=== PATIENT | female | born 1955 | race Caucasian/White ===

== ENCOUNTER 2021-01-22 09:29 | Inpatient (IN) ==
[2021-01-22] MEDS ORDERED: ONDANSETRON INJ 2 MG/ML 2 ML VIAL IV PRN ×3 (09:51→16:47)
[2021-01-22] MEDS ORDERED: MoRPHine SULFATE 4 MG/ML 1 ML CARP\\VIAL IV STA (09:51)
[2021-01-22] MEDS ORDERED: SODIUM CHLORIDE 0.9% 1000ML 1,000 ML IV STA (09:51)
--- NOTE | 2021-01-22 10:02 | Emergency Department Note ---
Impression & Plan Pneumoperitoneum ED Provider Note CHIEF COMPLAINT: Abdominal pain HISTORY OF PRESENTING ILLNESS: This is a 65-year-old female who presents to the emergency department by private vehicle with complaint of severe lower abdominal pain. She states the pain started yesterday and was mild, but has gotten progressively worse and today she states that she is in severe pain across her entire lower abdomen. She states the pain is worse when she moves and better when she rests and she currently rates the pain 8/10, but it is 10/10 with movement. She denies any history of similar pain in the past and denies any previous abdominal surgeries. She has not had any fevers or chills. She has not had any nausea or vomiting and states that her appetite was normal yesterday. This morning she only had a cup of coffee and otherwise has not eaten today. She has been moving her bowels less than normal the past 2 days as well but denies any specific constipation. She denies any bloody or black s tools. She is still passing gas. She denies any urinary symptoms. She denies any chest pain, chest tightness, shortness of breath, dizziness or syncope. REVIEW OF SYSTEMS: A complete 10 point review of systems was reviewed with the patient with pertinent positives and negatives as per history of present illness. All else were negative. PAST MEDICAL HISTORY: Patient denies any history of previous medical or surgical problems SOCIAL HISTORY: Lives at home with family, she is a current everyday smoker ALLERGIES: No known allergies PHYSICAL EXAM: CONSTITUTIONAL: Pleasant and cooperative. Nontoxic-appearing and in no acute distress. Mildly dehydrated, but otherwise well appearing and well nourished. HEENT: Normocephalic, atraumatic. Pharynx normal. Tacky mucous membranes. NECK: Supple, full active range of motion without discomfort. RESPIRATORY: Diminished throughout with coarse rhonchi and scattered expiratory wheezes throughout. No tachypnea or labored breathing. No accessory muscle use. Equal expansion bilaterally. CARDIOVASCULAR: Regular rate and rhythm with no murmurs, rubs or gallops. GASTROINTESTINAL: Abdomen is diffusely tender throughout the lower abdomen, most tender in the right lower quadrant. Abdomen is slightly distended and firm. No guarding or rebound tenderness. No palpable masses or HSM. Bowel sounds present in all quadrants. No CVA tenderness bilaterally. MUSCULOSKELETAL: Full range of motion of all joints without discomfort. INTEGUMENTARY: No rash or other significant dermatologic conditions noted. NEUROLOGIC: Alert and oriented X 4 with normal affect. ED COURSE AND MEDICAL DECISION MAKING: CC: Patient presenting with complaint of abdominal pain DIFFERENTIAL DIAGNOSIS: Includes, but not limited to appendicitis, gastroenteritis, colitis, diverticulitis, pancreatitis, UTI, ovarian pathology, mass or mass-effect, small bowel obstruction, bowel perforation, ileus, among others. INTERPRETATION OF LABS: No leukocytosis, no anemia, normal platelets, mild hyponatremia, no other significant electrolyte abnormalities, normal renal function, normal liver enzymes and lipase. UA negative for UTI. COVID-19 test negative. IMAGING: XR chest 1V portable HISTORY: cough COMPARISON: Chest 11/01/2008. FINDINGS: No pneumothorax. No pleural effusions. The lungs are mildly hyperexpanded. The heart is top normal in size. No evidence for pulmonary edema. Hazy appearance to lung bases may be due to the overlapping soft tissue. The upp er lung zones are clear. IMPRESSION: Hazy appearance to lung bases may be due to the overlapping soft tissue. A low- grade pneumonia could also have a similar appearance. ----- ABDOMEN AND PELVIS CT WITH IV CONTRAST CT DOSE: 250.22 mGy.cm HISTORY: lower abdominal pain TECHNIQUE: Multiaxial CT images of the abdomen and pelvis were performed following the use of intravenous contrast. A dose lowering technique was utilized adhering to the principles of ALARA. COMPARISON STUDY: Pelvis CT 08/18/2010. FINDINGS: A few partially opacified right lower lobe bronchi. Patchy groundglass densities within the base of the right lower lobe. This favors atelectasis. A pneumonia could also have a similar appearance. Moderate pneumoperitoneum. No suspicious lytic or blastic osseous lesions. There is thickening of the gastric antrum/pylorus with a possible ulceration at this location best seen image 149. This appears to demonstrate a component of intraluminal and extraluminal gas best seen on image 144 through 149. Therefore, this raises the possibility of a perforated gastric/peptic ulcer. This likely accounts for the pneumoperitoneum. There is a 16 x 7 mm saccular aneurysm extending anteriorly from the infrarenal abdominal aorta on image 146. Trace ascites seen within the right paracolic g utter and pelvis. The bladder, uterus, bilateral adnexa are within normal limits. Focal severe stenosis within the proximal left common iliac artery. There is also severe stenosis within the proximal right renal artery. The left renal artery is patent. Extensive calcified plaque within the aorta and iliac arteries. The right internal iliac artery and proximal left internal iliac arteries appear occluded. Colonic diverticulosis. The cecum and appendix are seen within the left lower quadrant. No evidence for bowel obstruction. Questionable thickening of the distal colon is likely due to underdistention. The liver, spleen, adrenal glands, pancreas, gallbladder, and right kidney are unremarkable. No retroperitoneal lymphadenopathy. There is a 1.9 x 1.1 cm exophytic heterogeneous focus of enhancement within the interpolar region of the left kidney on image 153. This could represent a solid renal mass. Dedicated renal MRI is recommended as a nonemergent follow-up. IMPRESSION: 1. Moderate pneumoperitoneum. The exact location of bowel perforation is difficult to assess but is likely secondary to a perforated gastric/peptic ulcer as described above. Immediate surgical consultation recommended. 2.. Possible 1.9 x 1.1 cm exophytic heterogeneous mass within the left kidney. Dedicated renal MRI is recommended as a nonemergent follow-up. 3. A few partially opacified right lower lobe bronchi with patchy groundglass densities at the base of the right lower lobe. This favors atelectasis. A pneumonia could also a similar appearance. 4. A 16 x 7 mm saccular aneurysm extending anteriorly from the infrarenal abdominal aorta. 5. Trace ascites. 6. Extensive arterial vascular disease as described above. MEDICATION RECONCILIATION: I attest that I have personally reviewed the patient's current medication list. INITIAL VITAL SIGNS REVIEW: I reviewed the patient's initial vital signs and interpret them as follows: T: Afebrile; BP: Hypertensive; HR: Mildly tachycardic; RR: Within normal limits; Pulse Ox: 90% on room air, the patient was placed on 2 L nasal cannula. MDM SUMMARY: Patient was evaluated at bedside, history and physical exam performed. Patient is alert and oriented, in no acute distress, but does appear uncomfortable from pain. She is afebrile and nontoxic-appearing. She is not vomiting and denies nausea. The abdomen is slightly distended and firm, tender in the lower quadrant, but no peritoneal signs. Cardiac monitoring: An order was placed for continuous cardiac monitoring. The monitor shows a rate of 95 bpm with normal sinus rhythm. Patient's lungs are noted to be bronchitic and with expiratory wheezing, she denies any history of COPD, but was noted to have sats of 88 to 90% on room air. I suspect underlying COPD that has not been diagnosed, due to her chronic heavy smoking. She was placed on nasal cannula and a chest x-ray was ordered. Orders were also placed for IV fluid bolus for hydration, IV morphine for pain, IV Zofran for nausea as needed, labs and UA, CT abdomen/pelvis with IV contrast to evaluate for abdominal pain. Patient discussed with Dr. Rodriguez, who agrees with my assessment, plan, and disposition. Labs and imaging reviewed as above, labs are fairly unremarkable, specifically no leukocytosis, renal function, liver function and lipase are normal. No UTI. CT imaging was reviewed and noted as above with moderate pneumoperitoneum concerning for perforated ulcer. I immediately called general surgery and spoke with Dr. Craig regarding these findings, and he agreed to evaluate the patient with plans to most likely take h er to the OR. Patient is being kept n.p.o. IV Zosyn was ordered per Dr. Craig's recommendation. Patient reassessed multiple times throughout ED stay, she has remained hemodynamically stable and afebrile and reports that her pain is significantly improved after the morphine. She remains tender to palpation on serial exams, but continues to be without peritoneal signs by my exam. The patient was updated on all results and plan for surgery, I answered all of her questions to the best of my ability and she verbalized understanding and agreement with this plan. The patient was stable at time of transfer to the OR. The patient will be admitted to the ICU postoperatively. CRITICAL CARE NOTE: I have personally spent greater than 37 minutes of critical care time in the direct management of this patient. This includes bedside care, interpretation of diagnostic studies, and testing, discussion with consultants, patient, and family members, and other required patient management activities. This 37 minutes is in excess of all separately billable procedures. The chart was completed utilizing [employer] voice recognition software. Grammatical errors, random word insertions, pronoun errors, and incomplete sentences are an occasional consequence of this system due to software limitati ons, ambient noise, and hardware issues. Any formal questions or concerns about the content, text, or information contained within the body of this dictation should be directly addressed to the nurse practitioner for clarification. Past Med/Surg History Medical History (Updated 01/22/21 @ 17:26 by LAKSHMI Gold) Patient denies significant medical history Surgical History (Updated 01/22/21 @ 13:02 by Tripp Mackenzie MD) H/O tubal ligation Social History Smoking Status: Current every day smoker Tobacco Type: Cigarettes Feels Safe at Home: Yes Allergies Allergies Allergy/AdvReac Type Severity Reaction Status Date / Time No Known Allergies Allergy Mild Unverified 01/22/21 10:32 Home Meds Home Medications Medication Instructions Recorded Confirmed No Known Home Medications 01/22/21 01/22/21 Results & Data (ED) Vital Signs Vital Signs - 24 hr 01/22/21 09:32 01/22/21 09:53 01/22/21 10:21 Temperature 37.0 C Temperature Source Skin Pulse Rate 97 H 110 H Pulse Rate from SpO2 Sensor 111 H Respiratory Rate 20 18 Respiratory Effort / Characteristics Non-Labored Respiratory Depth Normal Respiratory Pattern Regular Blood Pressure 159/85 H 199/104 H Blood Pressure Mean 109 135 Pulse Oximetry 90 91 92 Oxygen Delivery Method Room Air Room Air Oxygen Flow Rate Sepsis Recent Fever Within 48 Hours No Sepsis New/Unexplained Change in Mental Status N/A Sepsis Action Taken by Nursing No Action Required 01/22/21 10:22 01/22/21 10:23 01/22/21 11:11 Temperature Temperature Source Pulse Rate 105 H Pulse Rate from SpO2 Sensor 102 H Respiratory Rate 16 Respiratory Effort / Characteristics Respiratory Depth Respiratory Pattern Blood Pressure 176/82 H Blood Pressure Mean 113 Pulse Oximetry 88 L 96 100 Oxygen Delivery Method Room Air Nasal Cannula Oxygen Flow Rate 2 Sepsis Recent Fever Within 48 Hours Sepsis New/Unexplained Change in Mental Status Sepsis Action Taken by Nursing 01/22/21 11:39 01/22/21 12:00 01/22/21 12:30 Temperature Temperature Source Pulse Rate 94 H 111 H Pulse Rate from SpO2 Sensor 116 H 93 H 111 H Respiratory Rate 16 18 23 Respiratory Effort / Characteristics Respiratory Depth Respiratory Pattern Blood Pressure 186/82 H 170/78 H 179/95 H Blood Pressure Mean 116 108 123 Pulse Oximetry 93 93 92 Oxygen Delivery Method Oxygen Flow Rate 2 2 2 Sepsis Recent Fever Within 48 Hours Sepsis New/Unexplained Change in Mental Status Sepsis Action Taken by Nursing 01/22/21 13:00 Temperature Temperature Source Pulse Rate 97 H Pulse Rate from SpO2 Sensor 97 H Respiratory Rate 16 Respiratory Effort / Characteristics Respiratory Depth Respiratory Pattern Blood Pressure 143/74 H Blood Pressure Mean 97 Pulse Oximetry 94 Oxygen Delivery Method Oxygen Flow Rate 2 Sepsis Recent Fever Within 48 Hours Sepsis New/Unexplained Change in Mental Status Sepsis Action Taken by Nursing Laboratory Data Result diagrams: 01/22/21 09:54 01/22/21 09:54 Lab Results 01/22/21 01/22/21 01/22/21 Range/Units 09:54 09:54 09:54 WBC 10.38 (4.8-10.8) K/uL RBC 4.69 (4.2-5.4) M/uL Hgb 17.2 H (12.0-16.0) g/dL Hct 47.2 H (37-47) % MCV 100.6 H (80-100) fL MCH 36.7 H (25-34) pg MCHC 36.4 H (32-36) g/dL RDW Std Deviation 47.2 H (36.4-46.3) fL RDW Coeff of Odette 12.9 (11.5-14.5) % Plt Count 225 (130-400) K/uL MPV 9.2 (7.4-10.4) fL Immature Gran % (Auto) 0.2 % Neut % (Auto) 86.0 % Lymph % (Auto) 6.9 % Butler % (Auto) 6.2 % Eos % (Auto) 0.5 % Baso % (Auto) 0.2 % Neut # (Auto) 8.93 H (1.4-6.5) K/uL Lymph # (Auto) 0.72 L (1.2-3.4) K/uL Butler # (Auto) 0.64 H (0.11-0.59) K/uL Eos # (Auto) 0.05 (0-0.5) K/uL Baso # (Auto) 0.02 (0-0.2) K/uL Immature Gran # (Auto) 0.02 (0.00-0.02) K/uL Sodium 133 L (136-145) mmol/L Potassium 3.5 (3.5-5.1) mmol/L Chloride 101 (98-107) mmol/L Carbon Dioxide 29 (21-32) mmol/L Anion Gap 4.0 (3-11) BUN 9 (7-18) mg/dl Creatinine 0.66 (0.6-1.2) mg/dl Est Cr Clr Drug Dosing 62.0 ml/min Est GFR ( Amer) 109.0 Est GFR (Non-Af Amer) 94.0 BUN/Creatinine Ratio 13.9 (10-20) Glucose 115 H (70-99) mg/dl Calcium 9.1 (8.5-10.1) mg/dl Total Bilirubin 0.7 (0.2-1) mg/dl AST 18 (15-37) U/L ALT 20 (12-78) U/L Alkaline Phosphatase 110 (45-117) U/L Total Protein 7.4 (6.4-8.2) gm/dl Albumin 4.0 (3.4-5.0) gm/dl Globulin 3.4 (2.5-4.0) gm/dl Albumin/Globulin Ratio 1.2 (0.9-2) Lipase 150 (73-393) U/L Urine Color Yellow Urine Appearance Clear (Clear) Urine pH 7.0 (4.5-7.5) Ur Specific [place] 1.012 (1.000-1.030) Urine Protein 1+ H (Negative) Urine Glucose (UA) Negative (Negative) Urine Ketones Negative (Negative) Urine Blood Negative (Negative) Urine Nitrite Negative (Negative) Urine Bilirubin Negative (Negative) Urine Urobilinogen Negative (Negative) Ur Leukocyte Esterase Negative (Negative) Urine WBC (Auto) 1-5 (0-5) /hpf Urine RBC (Auto) 0-4 (0-4) /hpf U Hyaline Cast (Auto) 1-5 (0-5) /lpf U Epithel Cells (Auto) >30 H (0-5) /lpf Urine Bacteria (Auto) Negative (Negative) COVID-19 Eval Order SARS-CoV-2 (PCR) (Negative) Influenza Type A (PCR) (Neg) Influenza Type B (PCR) (Neg) RSV (RT-PCR) (Neg) 01/22/21 01/22/21 Range/Units 12:36 12:36 WBC (4.8-10.8) K/uL RBC (4.2-5.4) M/uL Hgb (12.0-16.0) g/dL Hct (37-47) % MCV (80-100) fL MCH (25-34) pg MCHC (32-36) g/dL RDW Std Deviation (36.4-46.3) fL RDW Coeff of Odette (11.5-14.5) % Plt Count (130-400) K/uL MPV (7.4-10.4) fL Immature Gran % (Auto) % Neut % (Auto) % Lymph % (Auto) % Butler % (Auto) % Eos % (Auto) % Baso % (Auto) % Neut # (Auto) (1.4-6.5) K/uL Lymph # (Auto) (1.2-3.4) K/uL [place] # (Auto) (0.11-0.59) K/uL Eos # (Auto) (0-0.5) K/uL Baso # (Auto) (0-0.2) K/uL Immature Gran # (Auto) (0.00-0.02) K/uL Sodium (136-145) mmol/L Potassium (3.5-5.1) mmol/L Chloride (98-107) mmol/L Carbon Dioxide (21-32) mmol/L Anion Gap (3-11) BUN (7-18) mg/dl Creatinine (0.6-1.2) mg/dl Est Cr Clr Drug Dosing ml/min Est GFR ( Amer) Est GFR (Non-Af Amer) BUN/Creatinine Ratio (10-20) Glucose (70-99) mg/dl Calcium (8.5-10.1) mg/dl Total Bilirubin (0.2-1) mg/dl AST (15-37) U/L ALT (12-78) U/L Alkaline Phosphatase (45-117) U/L Total Protein (6.4-8.2) gm/dl Albumin (3.4-5.0) gm/dl Globulin (2.5-4.0) gm/dl Albumin/Globulin Ratio (0.9-2) Lipase (73-393) U/L Urine Color Urine Appearance (Clear) Urine pH (4.5-7.5) Ur Specific [place] (1.000-1.030) Urine Protein (Negative) Urine Glucose (UA) (Negative) Urine Ketones (Negative) Urine Blood (Negative) Urine Nitrite (Negative) Urine Bilirubin (Negative) Urine Urobilinogen (Negative) Ur Leukocyte Esterase (Negative) Urine WBC (Auto) (0-5) /hpf Urine RBC (Auto) (0-4) /hpf U Hyaline Cast (Auto) (0-5) /lpf U Epithel Cells (Auto) (0-5) /lpf Urine Bacteria (Auto) (Negative) COVID-19 Eval Order CovFluRsv at [facility] SARS-CoV-2 (PCR) NEGATIVE (Negative) Influenza Type A (PCR) Negative (Neg) Influenza Type B (PCR) Negative (Neg) RSV (RT-PCR) Negative (Neg) Administered Medications Ondansetron HCl (Ondansetron Inj 2 Mg/Ml 2 Ml Vial) 4 mg IV ONE PRN PRN Reason: Nausea Stop: 02/21/21 09:50 Last Admin: 01/22/21 10:09 Dose: 4 mg Documented by: [id number] Discontinued Medications Cefoxitin Sodium (Cefoxitin Sod 1 Gm Vial) Confirm Administered Dose 2,000 mg .ROUTE .STK-MED ONE Stop: 01/22/21 13:19 Last Admin: 01/22/21 14:48 Dose: 2,000 mg Documented by: [id number] Hydromorphone HCl (Hydromorphone Inj 1 Mg/Ml Syringe) 0.25 mg IV Q5M PRN PRN Reason: PACU Use Only-Pain Stop: 01/22/21 21:57 Last Admin: 01/22/21 15:43 Dose: 0.25 mg Documented by: [id number] Admin: 01/22/21 15:38 Dose: 0.25 mg Documented by: [id number] Sodium Chloride (Nss 1000ml) 1,000 mls @ 999 mls/hr IV .Q1H1M STA Stop: 01/22/21 10:51 Last Infusion: 01/22/21 11:12 Dose: 0 mls/hr Documented by: [id number] Admin: 01/22/21 10:10 Dose: 999 mls/hr Documented by: [id number] Piperacillin Sod/Tazobactam Sod (Zosyn) 4.5 gm in 120 mls @ 240 mls/hr IV NOW ONE Stop: 01/22/21 12:48 Last Admin: 01/22/21 12:35 Dose: 240 mls/hr Documented by: [id number] Acetaminophen (Ofirmev) 65 mls @ 260 mls/hr IV NOW ONE Stop: 01/22/21 15:29 Last Admin: 01/22/21 15:45 Dose: 260 mls/hr Documented by: [id number] Ioversol (Ioversol 100ml) 93 ml IV ONCE ONE Stop: 01/22/21 10:05 Last Admin: 01/22/21 10:04 Dose: 93 ml Documented by: [id number] Morphine Sulfate (Morphine Sulfate 4 Mg/Ml 1 Ml Carp\Vial) 4 mg IV NOW STA Stop: 01/22/21 09:52 Last Admin: 01/22/21 10:09 Dose: 4 mg Documented by: [id number] Discharge Plan Visit Data Chief Complaint: Abdominal Pain Stated Complaint: SEVERE ABDOMINAL PAIN ED Provider: Timur Rodriguez ED Midlevel Provider: Luz Marina Olson Discharge Problem: Pneumoperitoneum Patient Disposition: Admitted As Inpatient Condition: Serious Discharge Instructions Interventions: ED Discharge Assessment Last Done: 01/22/21 13:43
[2021-01-22] MEDS ORDERED: OPTIRAY 320 100ml IV ONE (10:04)
[2021-01-22 10:16] LABS: Basophils # (auto) 0.02 K/uL (0-0.2); Basophils % (auto) 0.2 %; Eosinophils # (auto) 0.05 K/uL (0-0.5); Eosinophils % (auto) 0.5 %; Hematocrit (blood only) 47.2 % (37-47); Hemoglobin 17.2 g/dL (12.0-16.0); Immature Granulocytes # (auto) 0.02 K/uL (0.00-0.02); Immature Granulocytes % (auto) 0.2 %; Lymphocytes # (auto) 0.72 K/uL (1.2-3.4); Lymphocytes % (auto) 6.9 %; Mean Corpuscular Hemoglobin 36.7 pg (25-34); Mean Corpuscular Hgb Conc 36.4 g/dL (32-36); Mean Corpuscular Volume 100.6 fL (80-100); Mean Platelet Volume 9.2 fL (7.4-10.4); Monocytes # (auto) 0.64 K/uL (0.11-0.59); Monocytes % (auto) 6.2 %; Neutrophils # (auto) 8.93 K/uL (1.4-6.5); Platelet Count 225 K/uL (130-400); RDW Coefficient of Variation 12.9 % (11.5-14.5); RDW Standard Deviation 47.2 fL (36.4-46.3); Red Blood Count 4.69 M/uL (4.2-5.4); White Blood Count 10.38 K/uL (4.8-10.8)
[2021-01-22 10:22] LABS: Appearance Urine Clear (Clear); Bacteria Urine Automated Negative (Negative); Bilirubin Urine Negative (Negative); Blood Urine Negative (Negative); Color Urine Yellow; Epithelial Cell Urine Auto >30 /lpf (0-5); Glucose Urine UA Negative (Negative); Ketones Urine Negative (Negative); Leukocyte Esterase Urine Negative (Negative); Nitrite Urine Negative (Negative); Protein Urine 1+ (Negative); RBC Urine Automated 0-4 /hpf (0-4); Specific Gravity Urine 1.012 (1.000-1.030); Urobilinogen Urine Negative (Negative)
[2021-01-22 10:34] LABS: BUN Creatinine Ratio 13.9 (10-20); Calcium 9.1 mg/dl (8.5-10.1); Potassium 3.5 mmol/L (3.5-5.1)
[2021-01-22 10:37] LABS: Albumin Globulin Ratio 1.2 (0.9-2); Bilirubin,Total 0.7 mg/dl (0.2-1); Globulin 3.4 gm/dl (2.5-4.0); Total Protein 7.4 gm/dl (6.4-8.2)
--- NOTE | 2021-01-22 10:57 | XRay Report ---
XR chest 1V portable HISTORY: cough COMPARISON: Chest 11/01/2008. FINDINGS: No pneumothorax. No pleural effusions. The lungs are mildly hyperexpanded. The heart is top normal in size. No evidence for pulmonary edema. Hazy appearance to lung bases may be due to the ove rlapping soft tissue. The upper lung zones are clear. IMPRESSION: Hazy appearance to lung bases may be due to the overlapping soft tissue. A low-grade pneumonia could also have a similar appearance. ACT 112: Negative or not required by law. Electronically signed by: Jorge A Olivia M.D. 01/22/2021 10:56 AM
--- NOTE | 2021-01-22 11:57 | CT Scan Report ---
ABDOMEN AND PELVIS CT WITH IV CONTRAST CT DOSE: 250.22 mGy.cm HISTORY: lower abdominal pain TECHNIQUE: Multiaxial CT images of the abdomen and pelvis were performed following the use of intrave nous contrast. A dose lowering technique was utilized adhering to the principles of ALARA. COMPARISON STUDY: Pelvis CT 08/18/2010. FINDINGS: A few partially opacified right lower lobe bronchi. Patchy groundglass densities within the base of the right lower lobe. This favors atelectasis. A pneumonia could also have a similar appeara nce. Moderate pneumoperitoneum. No suspicious lytic or blastic osseous lesions. There is thickening o f the gastric antrum/pylorus with a possible ulceration at this location best seen image 149. This ap pears to demonstrate a component of intraluminal and extraluminal gas best seen on image 144 through 149. Therefore, this raises the possibility of a perforated gastric/peptic ulcer. This likely account s for the pneumoperitoneum. There is a 16 x 7 mm saccular aneurysm extending anteriorly from the infr arenal abdominal aorta on image 146. Trace ascites seen within the right paracolic gutter and pelvis. The bladder, uterus, bilateral adnexa are within normal limits. Focal severe stenosis within the pro ximal left common iliac artery. There is also severe stenosis within the proximal right renal artery. The left renal artery is patent. Extensive calcified plaque within the aorta and iliac arteries. The right internal iliac artery and proximal left internal iliac arteries appear occluded. Colonic diver ticulosis. The cecum and appendix are seen within the left lower quadrant. No evidence for bowel obst ruction. Questionable thickening of the distal colon is likely due to underdistention. The liver, spl een, adrenal glands, pancreas, gallbladder, and right kidney are unremarkable. No retroperitoneal lym phadenopathy. There is a 1.9 x 1.1 cm exophytic heterogeneous focus of enhancement within the interpo lar region of the left kidney on image 153. This could represent a solid renal mass. Dedicated renal MRI is recommended as a nonemergent follow-up. IMPRESSION: 1. Moderate pneumoperitoneum. The exact location of bowel perforation is difficult to assess but is l ikely secondary to a perforated gastric/peptic ulcer as described above. Immediate surgical consultat ion recommended. 2.. Possible 1.9 x 1.1 cm exophytic heterogeneous mass within the left kidney. Dedicated renal MRI is recommended as a nonemergent follow-up. 3. A few partially opacified right lower lobe bronchi with patchy groundglass densities at the base o f the right lower lobe. This favors atelectasis. A pneumonia could also a similar appearance. 4. A 16 x 7 mm saccular aneurysm extending anteriorly from the infrarenal abdominal aorta. 5. Trace ascites. 6. Extensive arterial vascular disease as described above. ACT 112: Positive. There are findings on this exam that require communication between the performing entity and the patient following Patient Test Result Information Act ([place] Act 112) guidelines. Electronically signed by: Jorge A Olivia M.D. 01/22/2021 11:56 AM
[2021-01-22] MEDS ORDERED: PIPERACILL/TAZOBAC CONSULT ACTIVE PRN ×3 (12:19→16:47)
[2021-01-22] MEDS ORDERED: PIPERACILLIN/TAZOBACTAM 4.5 GM/120 ML BAG IV ONE (12:19)
--- NOTE | 2021-01-22 12:47 | History & Physical Report ---
Date of Service January 22, 2021 Assessment & Plan (1) Pneumoperitoneum: This is a 65y F who presented to the [facility] ED on 01/22/21 with complaints of acute abdominal pain. She presented to the ER due to worsening symptoms. CT a/p revealed moderate pneumoperitoneum, stating the exact location of bowel perforation is difficult to assess but is likely secondary to a perforated gastric/peptic ulcer. WBC 10, Cr: 0.66. On examination patient is tender to palpation in the lower abdomen, particularly on the R side. Based on imaging, history, and physical findings we will proceed to take the patient to the OR for an exploratory laparotomy and repair of perforation. Patient will be covid testing, remain NPO with IVF, started on preop abx, and IV PPI. Dr. Craig has obtained surgical consent. Dr. Craigpatient seen in the emergency room she is in moderate distress from abdominal pain. Her findings are consistent with perforated duodenal ulcer as most likely etiology of her pneumoperitoneum. She requires emergent operation Which is abdominal exploration and closure of the perforation. We will place her in the ICU postoperatively She and her understand and wish to proceed History of Present Illness Primary Care Provider: NO PCP This is a 65y F who presented to the [facility] ED on 01/22/21 with complaints of acute abdominal pain. Patient reports her abdominal pain started yesterday and has progressively worsened. She describes it as a burning sensation, particularly in her lower abdomen, currently rating it a 6/10 in severity. Due to ongoing symptoms patient came to the ER for further evaluation. In the ER patient underwent a CT a/p that revealed moderate pneumoperitoneum, stating the exact location of bowel perforation is difficult to assess but is likely secondary to a perforated gastric/peptic ulcer. Patient denies any nausea/vomiting, chest pain/shortness of breath, diarrhea, fevers/chills. She last ate yesterday evening for dinner. She endorses some constipation. She has a past surgical history of a tubal ligation. Allergies Allergy/AdvReac Type Severity Reaction Status Date / Time No Known Allergies Allergy Mild Unverified 01/22/21 10:32 Home Medications Medication Instructions Recorded Confirmed Type No Known Home Medications 01/22/21 01/22/21 History Past Med/Surg History Social History Smoking Status: Current every day smoker Tobacco Type: Cigarettes Feels Safe at Home: Yes Review of Systems Constitutional: no fever and no chills Respiratory: no dyspnea Cardiovascular: no chest pain Gastrointestinal: + abdominal pain (lower abdomen) and + constipation; no bloating, no nausea and no vomiting Physical Exam Physical Exam: awake/alert Constitutional: uncomfortable appearing Respiratory: normal respiratory effort Gastrointestinal (Abdomen): Percussion/Palpation: + abdomen tender (ttp in lower abdomen, particularly on the R lower abdomen) and abdomen soft Results & Data Results & [facility] ([facility]) Vital Signs (Past 12 Hours) Vital Signs Temp Pulse Resp BP Pulse Ox 01/22/21 12:00 94 H 18 170/78 H 93 01/22/21 11:39 16 186/82 H 93 01/22/21 11:11 105 H 16 176/82 H 100 01/22/21 10:23 96 01/22/21 10:22 88 L 01/22/21 10:21 92 01/22/21 09:53 110 H 18 199/104 H 91 01/22/21 09:32 37.0 C 97 H 20 159/85 H [address] WITH IV CONTRAST CT DOSE: 250.22 mGy.cm HISTORY: lower abdominal pain TECHNIQUE: Multiaxial CT images of the abdomen and pelvis were performed following the use of intravenous contrast. A dose lowering technique was utilized adhering to the principles of ALARA. COMPARISON STUDY: Pelvis CT 08/18/2010. FINDINGS: A few partially opacified right lower lobe bronchi. Patchy groundglass densities within the base of the right lower lobe. This favors atelectasis. A pneumonia could also have a similar appearance. Moderate pneumoperitoneum. No suspicious lytic or blastic osseous lesions. There is thickening of the gastric antrum/pylorus with a possible ulceration at this location best seen image 149. This appears to demonstrate a component of intraluminal and extraluminal gas be st seen on image 144 through 149. Therefore, this raises the possibility of a perforated gastric/peptic ulcer. This likely accounts for the pneumoperitoneum. There is a 16 x 7 mm saccular aneurysm extending anteriorly from the infrarenal abdominal aorta on image 146. Trace ascites seen within the right paracolic gutter and pelvis. The bladder, uterus, bilateral adnexa are within normal limits. Focal severe stenosis within the proximal left common iliac artery. There is also severe stenosis within the proximal right renal artery. The left renal artery is patent. Extensive calcified plaque within the aorta and iliac arteries. The right internal iliac artery and proximal left internal iliac arteries appear occluded. Colonic diverticulosis. The cecum and appendix are seen within the left lower quadrant. No evidence for bowel obstruction. Questionable thickening of the distal colon is likely due to underdistention. The liver, spleen, adrenal glands, pancreas, gallbladder, and right kidney are unremarkable. No retroperitoneal lymphadenopathy. There is a 1.9 x 1.1 cm exophytic heterogeneous focus of enhancement within the interpolar region of the left kidney on image 153. This could represent a solid renal mass. Dedicated renal MRI is recommended as a nonemergent follow-up. IMPRESSION: 1. Moderate pneumoperitoneum. The exact location of bowel perforation is difficult to assess but is likely secondary to a perforated gastric/peptic ulcer as described above. Immediate surgical consultation recommended. 2.. Possible 1.9 x 1.1 cm exophytic heterogeneous mass within the left kidney. Dedicated renal MRI is recommended as a nonemergent follow-up. 3. A few partially opacified right lower lobe bronchi with patchy groundglass densities at the base of the right lower lobe. This favors atelectasis. A pneumonia could also a similar appearance. 4. A 16 x 7 mm saccular aneurysm extending anteriorly from the infrarenal abdominal aorta. 5. Trace ascites. 6. Extensive arterial vascular disease as described above. ACT 112: Positive. There are findings on this exam that require communication between the performing entity and the patient following Patient Test Result Information Act ([place] Act 112) guidelines. Electronically signed by: Jorge A Olivia M.D. 01/22/2021 11:56 AM PG Care Time/CCT Total # of Minutes Spent Total Time Spent with Patient: Total time spent is greater than 50% in coordination of care (as documented) at patient's floor/unit and/or counseling patient: Coding Level of Care Code 02859 Initial Inpt Care Lvl 2 Diagnoses Pneumoperitoneum K66.8
--- NOTE | 2021-01-22 13:03 | Anesthesiology Consultation ---
Date of Service January 22, 2021 Assessment & Plan (1) Encounter for pre-operative examination: Chart Review Chart Review: Acceptable Risk for Surgery (emergent surgery for perforated bowel) History Surgery Operation Date: 01/22/21 11:40 Proposed Procedures p Exploratory Laparotomy with Closure of Perforated Duodenal Ulcer - Betito Craig MD, FACS Height/Weight Height: 5 ft 2 in Weight: 45 kg Allergies Allergy/AdvReac Type Severity Reaction Status Date / Time No Known Allergies Allergy Mild Unverified 01/22/21 10:32 Medications Home Medications Medication Instructions Recorded Confirmed Last Taken No Known Home Medications 01/22/21 01/22/21 Unknown Active Medications Generic Name Dose Route Start Last Admin Trade Name Freq PRN Reason Stop Dose Admin Ondansetron HCl 4 mg 01/22/21 09:51 01/22/21 10:09 Ondansetron Inj 2 Mg/Ml 2 Ml Vial IV 02/21/21 09:50 4 mg ONE PRN Administration Nausea Past Medical History Medical History (Updated 01/22/21 @ 13:42 by Uriah Fontanez MD) Patient denies significant medical history Past Surgical History Surgical History (Updated 01/22/21 @ 13:02 by Tripp Mackenzie MD) H/O tubal ligation Social History Smoking Status: Current every day smoker Physical Exam Vital Signs Last Vital Signs Temp 37.0 C 01/22/21 09:32 Pulse 97 H 01/22/21 13:00 Resp 16 01/22/21 13:00 BP 143/74 H 01/22/21 13:00 Pulse Ox 94 01/22/21 13:00 Testing Laboratory Results 01/22/21 09:54 01/22/21 09:54 Urine Color Yellow 01/22/21 09:54 Urine Appearance Clear (Clear) 01/22/21 09:54 Urine pH 7.0 (4.5-7.5) 01/22/21 09:54 Ur Specific [place] 1.012 (1.000-1.030) 01/22/21 09:54 Urine Protein 1+ (Negative) H 01/22/21 09:54 Urine Glucose (UA) Negative (Negative) 01/22/21 09:54 Urine Ketones Negative (Negative) 01/22/21 09:54 Urine Nitrite Negative (Negative) 01/22/21 09:54 Ur Leukocyte Esterase Negative (Negative) 01/22/21 09:54 Urine WBC (Auto) 1-5 /hpf (0-5) 01/22/21 09:54 Urine RBC (Auto) 0-4 /hpf (0-4) 01/22/21 09:54 U Hyaline Cast (Auto) 1-5 /lpf (0-5) 01/22/21 09:54 U Epithel Cells (Auto) >30 /lpf (0-5) H 01/22/21 09:54 Urine Bacteria (Auto) Negative (Negative) 01/22/21 09:54 Electrocardiogram Date: 01/22/21
[2021-01-22 13:35] LABS: Influenza A virus by PCR Negative (Neg); Influenza B virus by PCR Negative (Neg); RSV by PCR Negative (Neg); SARS CoV2 RNA(COVID-19) InHosp NEGATIVE (Negative)
[2021-01-22] MEDS ORDERED: PROPOFOL IV EMULSION 10 MG/ML 20 ML VIAL IV ONE (13:40)
[2021-01-22] MEDS ORDERED: SUCCINYLCHOLINE CHLORIDE 20 MG/ML 10 ML VIAL IV ONE (13:40)
[2021-01-22] MEDS ORDERED: LIDOCAINE HCL 2% 2 ML VIAL/AMP(20MG/ML) INFIL ONE (13:40)
[2021-01-22] MEDS ORDERED: ROCURONIUM BROMIDE 10 MG/ML 5 ML VIAL IV ONE (13:40)
[2021-01-22] MEDS ORDERED: ONDANSETRON INJ 2 MG/ML 2 ML VIAL ONE (13:40)
[2021-01-22] MEDS ORDERED: fentaNYL citrate 100 MCG/2 ML VIAL ONE ×2 (13:41)
--- NOTE | 2021-01-22 13:49 | Hospitalist Consultation ---
Date of Consultation January 22, 2021 Assessment & Plan (1) Pneumoperitoneum: Likely from increased use of Aleve due to foot ulceration. patient taken to the OR in the afternoon 01/22/2021. This patient will be placed on Protonix. CT abdomen pelvis 01/22/2021 IMPRESSION: 1. Moderate pneumoperitoneum. The exact location of bowel perforation is difficult to assess but is likely secondary to a perforated gastric/peptic ulcer. Immediate surgical consultation recommended. 2.. Possible 1.9 x 1.1 cm exophytic heterogeneous mass within the left kidney. Dedicated renal MRI is recommended as a nonemergent follow-up. 3. A few partially opacified right lower lobe bronchi with patchy groundglass densities at the base of the right lower lobe. This favors atelectasis. A pneumonia could also a similar appearance. 4. A 16 x 7 mm saccular aneurysm extending anteriorly from the infrarenal abdominal aorta. 5. Trace ascites. 6. Extensive arterial vascular disease. (2) Peripheral artery disease: Patient significant peripheral artery disease also noted on the CT scan abdomen pelvis we will pursue arterial Dopplers of bilateral extremities. We will get a plain film x-ray of her foot to look for osteomyelitis with considered next draw adjuvant imaging if need be. We will have wound care nurse evaluation. Perioperative antibiotics and likely will recommend continued antibiotics until osteomyelitis is ruled out (3) Right foot ulcer: Will evaluate for infection and arterial supply with doppler. wound care nurse (4) Tobacco abuse: Nicotine patch will be applied looking cessation counseling was offered History of Present Illness History of Present Illness 65-year-old female presents emergency department with lower abdominal pain. She states she has been taking increased Aleve due to painful right foot. She states she has been seeing a doctor for the right foot and she supposed to get dye in her arteries. Patient was found to have perforated ulcer on imaging and is slated to go to the operating room with general surgery this afternoon. Patient states she is never had surgery. She does not have any chest pain or not exertional dyspnea and her dyspnea is slight she is never had any paroxysmal nocturnal dyspnea. She does have any bleeding dyscrasias. She does have what appears to be an ulceration on her right first MTP but also some other ulcerations on the dorsal foot and also the lateral edge near her fifth MTP. These are clean-based for the most part but the large MTP ulcer which is approximately 2 to 3 cm is a black eschar in place. Patient has poor pulses to her feet with delayed capillary refill. Allergies Allergy/AdvReac Type Severity Reaction Status Date / Time No Known Allergies Allergy Mild Unverified 01/22/21 10:32 Home Medications Medication Instructions Recorded Confirmed Type No Known Home Medications 01/22/21 01/22/21 History Patient History Medical History (Updated 01/22/21 @ 18:21 by Eva Inman MD) Patient denies significant medical history Surgical History (Updated 01/22/21 @ 13:02 by Tripp Mackenzie MD) H/O tubal ligation Social History Smoking Status: Current every day smoker Tobacco Type: Cigarettes Hx Alcohol Use: Yes Alcohol type: beer Hx Substance Use: No Preferred Language: Citizen Of [place] Communication Ability: Effective Senior Quality Control Inspector Required: No Beliefs That Will Affect Care: None Current Living Situation: Spouse Feels Safe at Home: Yes Safety Concerns: Feels Safe At This Time Assistive Devices: Oxygen - Continuous Review of Systems Review of Systems: Mild distress and fatigue no headache, blurry or double vision no speech or swallowing issues no chest pain, pressure or palpitations no shortness of breath, cough or wheezes Centralized abdominal pain, mild nausea without vomiting no dysuria, hematuria or frequency no focal joint pain or swelling no back pain, CVA tenderness or radicular pain Patient's had ulcerations on her right foot for some time no focal signs of weakness or numbness or altered sensation no complaints of anxiety or depression.. Physical Exam Physical Exam: The patient appeared well nourished and normally developed. He is petite with a BMI of 18 and slightly likely underweight Vital signs as documented. Head exam is normocephalic atraumatic no scleral icterus Neck is without JVD, thyromegaly, or carotid bruits. Lungs are clear to auscultation, no focal loss of breath sounds Cardiac exam, Rhythm is regular.. No murmurs, rubs or gallops. Abdominal exam reveals hyperactive bowel sounds, soft mildly diffusely tender no rigidity no guarding Feet distally are erythematous right is definitely more erythematous than the left marked delayed capillary refill nor dorsalis pedis pulses palpable nursing states they were able to Doppler the posterior tibialis. She also has weak pulses in the popliteal and inguinal area. There ulcers on her right foot the largest is 1 including an eschar on the first MTP area these appear to be ischemic in nature but the redness of her foot raises some concern about possible foot infection Neurologic exam is alert and oriented, no focal loss of strength or sensation Skin is with distal right foot ulcerations Psychologically is without concerns for anxiety or depression Results & Data Results & Data ([facility]) Vital Signs (Past 12 Hours) Vital Signs Temp Pulse Resp BP Pulse Ox 01/22/21 13:00 97 H 16 143/74 H 94 01/22/21 12:30 111 H 23 179/95 H 92 01/22/21 12:00 94 H 18 170/78 H 93 01/22/21 11:39 16 186/82 H 93 01/22/21 11:11 105 H 16 176/82 H 100 01/22/21 10:23 96 01/22/21 10:22 88 L 01/22/21 10:21 92 01/22/21 09:53 110 H 18 199/104 H 91 01/22/21 09:32 98.6 F 97 H 20 159/85 H 90 PG Care Time/CCT Total # of Minutes Spent Total Time Spent with Patient: Total time spent is greater than 50% in coordination of care (as documented) at patient's floor/unit and/or counseling p atient: Coding Level of Care Code 42378 Inpt Consult Level 4 Diagnoses Pneumoperitoneum K66.8 Peripheral artery disease I73.9 Right foot ulcer L97.519 Tobacco abuse Z72.0
[2021-01-22] MEDS ORDERED: ATROPINE SULFATE 0.1 MG/ML 10ML SYR IV PRN (13:57)
[2021-01-22] MEDS ORDERED: PROMETHAZINE HCL 6.25 MG in SODIUM CHLORIDE 0.9% 50 ML IV PRN (13:57)
[2021-01-22] MEDS ORDERED: KETAMINE 50 MG/5 ML SYRINGE ONE (14:25)
[2021-01-22] MEDS ORDERED: LABETALOL HCL IV 5 MG/ML 20ML IV ONE ×2 (14:32→15:59)
[2021-01-22] MEDS ORDERED: ACETAMINOPHEN 1,000 MG/100 ML VIAL IV ONE (15:00)
[2021-01-22] MEDS ORDERED: ICU PROTOCOL FOR HYPERGLYCEMIA PRN (15:00)
--- NOTE | 2021-01-22 15:00 | Post Operative Brief Note ---
PG Immediate Post Op with CF Date of Surgery January 22, 2021 Pre & Post Diagnosis Operation Date: 01/22/21 11:40 Pre-Op Diagnosis: Perforated Duodenal Ulcer Post-Op Diagnosis: Perforated Duodenal Ulcer I identified the patient and participated in the time-out.: Yes Procedure Operation Date: 01/22/21 11:40 Actual Procedures p Exploratory Laparotomy with Closure of Perforated Duodenal Ulcer(Not Applicable) - Betito Craig MD, FACS abdominal washout Surgeon Betito Craig MD, FACS Instruments Sales 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 Maryam Nixon Estimated Blood Loss 15 Findings Consistent with Post-Op Diagnosis Specimens Specimen Description: Microbilogy#1 Urine culture Microbiology #2 Peritoneal Fluid Drains Hale Catheter (Ciera Sheikh RN unable to advance a 16fr hale catheter through patient's urethra; used a 14fr hale and was able to advance it without difficulty until visualization of urine return. ) and Aldo-Salas Drain
[2021-01-22] MEDS ORDERED: ACETAMINOPHEN 65 ML IV ONE (15:15)
[2021-01-22] MEDS ORDERED: SUGAMMADEX SODIUM 200 MG/2 ML VIAL IV ONE (15:20)
[2021-01-22] MEDS ORDERED: ACETAMINOPHEN 1000 MG/100 ML IV IV ONE (15:24)
[2021-01-22] MEDS: HYDROmorphone INJ 1 MG/ML SYRINGE IV PRN ×2 (15:38→15:43)
[2021-01-22] MEDS ORDERED: HYDROmorphone INJ 1 MG/ML SYRINGE ONE (15:38)
--- NOTE | 2021-01-22 16:19 | Anesthesiology Progress Note ---
Date of Service January 22, 2021 Anesthesia Post Procedure Vital Signs Vital Signs: Temp Pulse Pulse Resp BP BP Pulse Ox 01/22/21 16:05 74 16 171/71 H 98 01/22/21 15:55 80 16 177/83 H 98 01/22/21 15:45 77 16 183/80 H 98 01/22/21 15:38 36.4 C L 85 16 183/113 H 98 01/22/21 13:00 97 H 16 143/74 H 94 01/22/21 12:30 111 H 23 179/95 H 92 01/22/21 12:00 94 H 18 170/78 H 93 01/22/21 11:39 16 186/82 H 93 01/22/21 11:11 105 H 16 176/82 H 100 01/22/21 10:23 96 01/22/21 10:22 88 L 01/22/21 10:21 92 01/22/21 09:53 110 H 18 199/104 H 91 01/22/21 09:32 37.0 C 97 H 20 159/85 H 90 Pain Intensity Abdomen: Pain Intensity: 5 Transfer of Care Handoff Completed per policy Notes Mental Status: alert / awake / arousable Patient Amnestic to Procedure: Yes Nausea / Vomiting: adequately controlled Pain: adequately controlled Airway Patency, RR, SpO2: stable & adequate BP & HR: stable & adequate Hydration State: stable & adequate Anesthetic Complications: no major complications apparent
[2021-01-22] MEDS ORDERED: PROMETHAZINE HCL 12.5 MG in SODIUM CHLORIDE 0.9% 50 ML IV PRN (16:47)
[2021-01-22] MEDS ORDERED: PIPERACILLIN/TAZOBACTAM 3.375 GM in DEXTROSE 5% 100 ML IV SCH (16:47)
--- NOTE | 2021-01-22 17:03 | Operative Report (OR) ---
DATE OF OPERATION: 01/22/2021 NAME OF OPERATION: Exploratory laparotomy, oversew perforated duodenal ulcer, abdominal washout. PREOPERATIVE DIAGNOSES: Perforated duodenal ulcer and peritonitis. POSTOPERATIVE DIAGNOSES: Perforated duodenal ulcer and peritonitis. STAFF SURGEON: Betito Craig MD. BEHAVIORAL SCIENTIST: Naila Nixon PA-C. ANESTHESIA: General. DESCRIPTION OF PROCEDURE: The patient was brought in the operating room and placed on the operating table in supine position. King catheter was placed. Nasogastric tube was placed intraoperatively. A midline incision was made carrying dissection down into the abdomen above the umbilicus, identifying the subhepatic site, which was a perforated duodenal ulcer. It was approximately 1 cm in diameter, draining bilious fluid. There was purulent fluid in the right colic gutter and over the liver. A sponge was placed over the perforation and then the abdomen was washed out with 2 liters of saline and antibiotic solution, 1 liter was used after the perforation was closed. At this point, we did approach the perforation. I did not have to mobilize the tissue. I placed several 0 chromic catgut sutures to close the wound and then adipose tissue was brought over the area as a patch, secured using 2-0 chromic suture. The abdomen was again washed out with saline solution. A 19 round Aldo-Salas drain placed into the subhepatic space, secured to the right abdominal wall using 3-0 nylon suture. A 15 round Aldo-Salas drain placed into the pelvis, secured to the abdominal wall using 4-0 nylon suture. The fascia was reapproximated using #1 PDS suture in a running fashion. The skin was then loosely reapproximated using blayne and quarter inch Nu Gauze was placed between the blayne into the subcutaneous space. Dressings were applied. My perinatal breastfeeding assistant helped with prepping, draping, repair of the ulcer, abdominal washout and closure of the wound. NG tube was left in place. King was left in place. The patient was transferred to the intensive care unit in stable condition. I attest to the content of the Intraoperative Record and any orders documented therein. Any exception s are noted below.
[2021-01-22] MEDS: NSS + 20MEQ KCL 20 MEQ/1,000 ML BAG IV SCH (18:23)
[2021-01-22] MEDS: PIPERACILLIN/TAZOBACTAM 3.375 GM in DEXTROSE 5% 100 ML IV SCH (18:23)
[2021-01-22] MEDS ORDERED: ALBUT/IPRATROP 3MG/0.5MG NEB 3 ML VIAL NEB PRN (18:29)
--- NOTE | 2021-01-22 18:29 | Critical Care Consultation ---
Date of Consultation January 22, 2021 Assessment & Plan (1) Gastric perforation: Chest x-ray 01/22/2021 personally reviewed: Portable film, good inspiratory effort, bilateral costophrenic and cardiac negative sectioning, no clear lung infiltrate appreciated. Subdiaphragmatic air on the right side. --Acute perforated duodenal ulcer and peritonitis S/p OR 01/22/2021 Continue with NGT Continue with antibiotics for gram-negative and anaerobic coverage Surgery on board Pain management --Peripheral vascular disease Right lower extremity very feeble pulse with purplish hue Arterial duplex has been ordered We will consult vascular surgery We will start the patient on aspirin and statin once cleared by surgery --COPD with emphysema Undiagnosed We will start the patient on Incruse to be used on a daily basis Outpatient follow-up with curriculum development specialist Keep O2 saturation between 90-92% --Active smoker Advised to quit --Prophylaxis VTE: Heparin GI: Protonix Lines: Peripheral Diet: N.p.o. Plan: Pain medication Continue NGT suction Incentive spirometry Start the patient on duo nebs as patient is actively wheezing and Incruse. We will avoid steroids for the time being Vascular surgery consult Monitor H&H Please note the above document was generated using voice recognition software. It may contain grammatical, syntax or spelling errors.Any formal questions or concerns about the content, text or information contained within the body of this dictation should be directly addressed to the provider for clarification. (2) Pneumoperitoneum: (3) Peripheral artery disease: (4) Tobacco abuse: (5) COPD with emphysema: History of Present Illness Attending Physician: Betito Craig MD, [facility] History of Present Illness 65-year-old female past medical history of COPD, active smoker pre sented to the hospital with complaints of abdominal pain Patient had CT abdomen pelvis done in the ED which showed pneumoperitoneum. Patient was taken to the OR by Dr. Craig emergently. Patient is in the MICU s/p OR laparotomy Signout was given to me by Dr. Craig. At the time of examination the ICU patient had an NGT. She was not complaining of any belly pain. She said that she is feeling better compared to when she came to the hospital. Denied any shortness of breath, no chest pain, no dizziness, no headache, no nausea, no vomiting. Denies any pain in the extremities right now Social history: Greater than [id number] active smoker, drinks 4 beers on a daily basis Allergies Allergy/AdvReac Type Severity Reaction Status Date / Time No Known Allergies Allergy Mild Unverified 01/22/21 10:32 Home Medications Medication Instructions Recorded Confirmed Type No Known Home Medications 01/22/21 01/22/21 History Patient History Medical History (Updated 01/22/21 @ 18:21 by Eva Inman MD) Patient denies significant medical history Surgical History (Updated 01/22/21 @ 13:02 by Tripp Mackenzie MD) H/O tubal ligation Social History Smoking Status: Current every day smoker Tobacco Type: Cigarettes Hx Alcohol Use: Yes Alcohol type: beer Hx Substance Use: No Preferred Language: Syriac Communication Ability: Effective Nurse Emergency Room Required: No Beliefs That Will Affect Care: None Current Living Situation: Spouse Feels Safe at Home: Yes Safety Concerns: Feels Safe At This Time Review of Systems Review of Systems: All systems reviewed & are unremarkable except as noted in HPI & below Physical Exam Physical Exam: Constitutional: No acute distress HEENT: EOMI, PERRLA, positive NGT Respiratory system: Decreased air entry bilaterally, positive expiratory wheeze bilaterally, positive rhonchi right side, positive crackles bilateral lower lo bes CVS: S1-S2 positive, no murmurs or gallops Abdomen: Soft, nontender, nondistended, decreased bowel sounds, YOHAN drain in place, incision dressed Extremities: +1 dorsalis pedis left side, right-sided dorsalis pedis is very feeble. There is purplish hue on the right lower extremity and it is cold, there is dry ulceration appreciated on the proximal hallux medial surface as well as small dry ulcer on the lateral fifth toe. Neuro: Awake alert oriented x3 Psych: Normal mood and affect G/U: Positive King Skin: no rashes, warm and dry Lymphatic: no cervical or axillary lymphadenopathy Results & Data Results & Data ([facility]) Vital Signs (Past 12 Hours) Vital Signs Temp Pulse Pulse Resp BP BP Pulse Ox 01/22/21 18:00 36.8 C 71 13 01/22/21 17:52 69 14 158/68 H 96 01/22/21 17:30 69 15 97 01/22/21 17:03 36.4 C L 82 18 136/77 96 01/22/21 17:00 81 15 95 01/22/21 16:05 74 16 171/71 H 98 01/22/21 15:55 80 16 177/83 H 98 01/22/21 15:45 77 16 183/80 H 98 01/22/21 15:38 36.4 C L 85 16 183/113 H 98 01/22/21 13:00 97 H 16 143/74 H 94 01/22/21 12:30 111 H 23 179/95 H 92 01/22/21 12:00 94 H 18 170/78 H 93 01/22/21 11:39 16 186/82 H 93 01/22/21 11:11 105 H 16 176/82 H 100 01/22/21 10:23 96 01/22/21 10:22 88 L 01/22/21 10:21 92 01/22/21 09:53 110 H 18 199/104 H 91 01/22/21 09:32 37.0 C 97 H 20 159/85 H 90 01/22/21 09:54 01/22/21 09:54 Coding Level of Care Code 76140 Inpt Consult Level 4 Diagnoses Gastric perforation K25.5 Pneumoperitoneum K66.8 Peripheral artery disease I73.9 Tobacco abuse Z72.0 COPD with emphysema J43.9
[2021-01-22] MEDS: ALBUT/IPRATROP 3MG/0.5MG NEB 3 ML VIAL NEB SCH (19:05)
[2021-01-22 19:21] LABS: Albumin Level 2.8 gm/dl (3.4-5.0); Calcium 7.9 mg/dl (8.5-10.1); Creatinine Clr Calc Pharmacy 66.5 ml/min; Est GFR (African American) 108.4; Est GFR (Non-African American) 93.5
[2021-01-22 19:26] LABS: Basophils # (auto) 0.01 K/uL (0-0.2); Basophils % (auto) 0.1 %; Hematocrit (blood only) 41.8 % (37-47); Hemoglobin 14.2 g/dL (12.0-16.0); Immature Granulocytes # (auto) 0.03 K/uL (0.00-0.02); Immature Granulocytes % (auto) 0.2 %; Lymphocytes % (auto) 4.5 %; Mean Corpuscular Hemoglobin 35.1 pg (25-34); Mean Corpuscular Volume 103.2 fL (80-100); Mean Platelet Volume 9.1 fL (7.4-10.4); Monocytes # (auto) 0.37 K/uL (0.11-0.59); Monocytes % (auto) 2.8 %; Neutrophils % (auto) 92.4 %; Platelet Count 169 K/uL (130-400); RDW Coefficient of Variation 12.9 % (11.5-14.5); Red Blood Count 4.05 M/uL (4.2-5.4); White Blood Count 13.31 K/uL (4.8-10.8)
[2021-01-22 19:28] LABS: Albumin Globulin Ratio 0.9 (0.9-2); Bilirubin,Total 0.7 mg/dl (0.2-1); Total Protein 5.8 gm/dl (6.4-8.2)
[2021-01-22] MEDS ORDERED: PANTOprazole 40 MG in SYRINGE 0 ML IV SCH (21:00)
[2021-01-22] MEDS: UMECLIDINIUM BROMIDE 62.5MCG/BLISTER 7 PUFFS/INHALER INH SCH (21:15)
[2021-01-22] MEDS: PANTOprazole 40 MG in SYRINGE 0 ML IV SCH (21:16)
[2021-01-23] MEDS: HYDROmorphone INJ 0.5 MG/0.5 ML SYR IV PRN (01:46)
[2021-01-23] MEDS: PIPERACILLIN/TAZOBACTAM 3.375 GM in DEXTROSE 5% 100 ML IV SCH ×3 (02:00→18:37)
[2021-01-23] MEDS: LABETALOL HCL IV 5 MG/ML 20ML IV PRN ×5 (03:21→22:36)
[2021-01-23] MEDS: HYDROmorphone INJ 1 MG/ML SYRINGE IV PRN ×4 (04:25→20:28)
[2021-01-23] MEDS: NSS + 20MEQ KCL 20 MEQ/1,000 ML BAG IV SCH (04:25)
[2021-01-23 05:03] LABS: Basophils # (auto) 0.01 K/uL (0-0.2); Basophils % (auto) 0.1 %; Eosinophils # (auto) 0.02 K/uL (0-0.5); Eosinophils % (auto) 0.2 %; Hematocrit (blood only) 40.6 % (37-47); Hemoglobin 13.6 g/dL (12.0-16.0); Immature Granulocytes # (auto) 0.03 K/uL (0.00-0.02); Immature Granulocytes % (auto) 0.3 %; Lymphocytes # (auto) 0.71 K/uL (1.2-3.4); Lymphocytes % (auto) 6.4 %; Mean Corpuscular Hemoglobin 35.1 pg (25-34); Mean Corpuscular Hgb Conc 33.5 g/dL (32-36); Mean Corpuscular Volume 104.6 fL (80-100); Mean Platelet Volume 9.3 fL (7.4-10.4); Monocytes % (auto) 6.3 %; Neutrophils % (auto) 86.7 %; Platelet Count 178 K/uL (130-400); RDW Coefficient of Variation 13.2 % (11.5-14.5); RDW Standard Deviation 50.5 fL (36.4-46.3); Red Blood Count 3.88 M/uL (4.2-5.4); White Blood Count 11.07 K/uL (4.8-10.8)
[2021-01-23 05:33] LABS: Albumin Level 2.6 gm/dl (3.4-5.0); BUN Creatinine Ratio 19.7 (10-20); Calcium 7.6 mg/dl (8.5-10.1); Creatinine Clr Calc Pharmacy 65.5 ml/min; Est GFR (African American) 107.9; Est GFR (Non-African American) 93.1; Magnesium 1.7 mg/dl (1.8-2.4); Potassium 4.4 mmol/L (3.5-5.1)
[2021-01-23 05:36] LABS: Albumin Globulin Ratio 0.8 (0.9-2); Bilirubin,Total 0.7 mg/dl (0.2-1); Globulin 3.3 gm/dl (2.5-4.0); Phosphorus 3.1 mg/dl (2.5-4.9); Total Protein 5.9 gm/dl (6.4-8.2)
--- NOTE | 2021-01-23 06:02 | Surgery Progress Note ---
Date of Service January 23, 2021 Assessment & Plan (1) H/O exploratory laparotomy: Status post exploratory laparotomy for perforated duodenal ulcer Patient is awake and alert and feels better She has a positive fluid balance but her urine output is improving Her BUN and creatinine are stable Her drains shows serous drainage from the upper drain and cloudy drainage from the lower drain Not unexpected Continue n.p.o., NG, King, leave drains Continue IV antibiotics, IV Protonix ICU management for today Admission and Anticipated Discharge Date Admission Date: January 22, 2021 Results & Data ([facility]) Vital Signs (Past 12 Hours) Vital Signs Temp Pulse Pulse Resp BP Pulse Ox 01/23/21 03:40 70 14 161/76 H 94 01/23/21 03:10 71 13 176/77 H 94 01/23/21 02:40 88 21 182/90 H 94 01/23/21 02:10 82 15 182/92 H 93 01/23/21 01:40 92 H 15 189/88 H 95 01/23/21 01:10 80 16 188/82 H 92 01/23/21 00:40 36.6 C 77 18 186/74 H 96 01/23/21 00:10 69 19 157/68 H 96 01/23/21 00:00 95 H 01/22/21 23:40 67 12 170/71 H 95 01/22/21 23:10 66 11 L 157/73 H 96 01/22/21 22:41 69 8 L 150/67 H 96 01/22/21 22:10 67 13 126/61 94 01/22/21 21:40 79 17 163/74 H 93 01/22/21 21:10 64 13 149/64 H 97 01/22/21 20:40 79 12 153/73 H 93 01/22/21 20:10 36.6 C 72 9 L 156/66 H 95 01/22/21 19:40 64 13 149/62 H 96 01/22/21 19:08 77 20 93 01/22/21 18:00 36.8 C 71 13 PG Care Time/CCT Total # of Minutes Spent Total Time Spent with Patient: Total time spent is greater than 50% in coordination of care (as documented) at patient's floor/unit and/or counseling patient: Coding Level of Care Code None Diagnoses H/O exploratory laparotomy Z98.890
[2021-01-23] MEDS: MAGNESIUM SULFATE / D5W 1 GM/100 ML BAG IV SCH ×2 (06:26→07:52)
[2021-01-23] MEDS: ALBUT/IPRATROP 3MG/0.5MG NEB 3 ML VIAL NEB SCH ×3 (07:32→19:07)
[2021-01-23] MEDS: SODIUM CHLORIDE 0.9% 500 ML IV SCH ×3 (08:43→22:32)
[2021-01-23] MEDS ORDERED: HEPARIN SOD 5,000 UNIT/0.5 ML VIAL SQ SCH (09:00)
[2021-01-23] MEDS: UMECLIDINIUM BROMIDE 62.5MCG/BLISTER 7 PUFFS/INHALER INH SCH (09:18)
[2021-01-23] MEDS: PANTOprazole 40 MG in SYRINGE 0 ML IV SCH ×2 (09:19→20:30)
--- NOTE | 2021-01-23 09:41 | XRay Report ---
XR foot RT 2V HISTORY: 65 years-old Female eval for osteo 1st mtp acute soft tissue swelling with question osteomy elitis comparison the joint COMPARISON: None TECHNIQUE: 2 views of the right foot FINDINGS: Demineralized appearance of the bones. Mild multifocal osteoarthritis. Mild soft tissue swelling surr ounds the first MTP joint. No acute fracture, dislocation, opaque foreign body or osseous erosion. Ti ny plantar enthesophyte of the calcaneus. IMPRESSION: 1. Mild soft tissue swelling surrounds the first MTP joint. No acute fracture, dislocation or osseous erosion. 2. Demineralized appearance of the bones with mild multifocal osteoarthritis. ACT 112: Negative or not required by law. The above report was generated using voice recognition software. It may contain grammatical, syntax o r spelling errors. Electronically signed by: Jona Rankin M.D. 01/23/2021 9:39 AM
[2021-01-23] MEDS: NICOTINE 14 MG/24 HR PATCH TD SCH ×2 (10:20→15:13)
--- NOTE | 2021-01-23 11:40 | Ultrasound Report ---
US arterial duplex LE BI HISTORY: 65-year-old Female Patient has poor palpable pulses bilaterally ulcer, peripheral vascular disease with diminished pulses bilaterally. COMPARISON: None. TECHNIQUE: Multiple real-time sonographic images of the arterial structures of the bilateral lower ex tremities were obtained assessing grayscale appearance, color and spectral flow. FINDINGS: RIGHT: Diffuse atherosclerotic plaque throughout. Triphasic waveforms within the common femoral and profunda femoris arteries. Blunted monophasic waveforms within the superficial femoral artery with peak systo lic velocities measuring up to 21 cm/s. Areas of spectral broadening are also noted. Monophasic and b iphasic waveforms in the popliteal artery with blunted monophasic waveforms demonstrating spectral br oadening within the right lower extremity arterial structures. No definite flow identified within the mid superficial femoral and dorsalis pedis arteries. LEFT: Diffuse atherosclerotic plaque. Triphasic waveforms are noted within the common femoral and profunda femoris arteries. Triphasic and biphasic waveforms within the superficial femoral artery with biphasi c waveforms within the popliteal artery. Combination of monophasic and biphasic waveforms within the left lower leg. No elevated peak systolic velocities or arterial occlusion identified. IMPRESSION: 1. Diffuse atherosclerotic vascular disease. 2. No definite flow identified within the mid right superficial femoral and dorsalis pedis arteries s uggestive of high-grade stenosis versus occlusion. 3. Monophasic and biphasic waveforms of the lower legs as above. ACT 112: Negative or not required by law. The above report was generated using voice recognition software. It may contain grammatical, syntax o r spelling errors. Dictated: 01/23/2021 10:00 AM Transcribed: 01/23/2021 10:33 AM Nazanin [id number] [email or web address]_[email or web address] Electronically signed by: Jona Rankin M.D. 01/23/2021 11:39 AM
--- NOTE | 2021-01-23 12:05 | Critical Care Progress Note ---
Date of Service January 23, 2021 Assessment & Plan (1) Gastric perforation: Chest x-ray 01/22/2021 personally reviewed: Portable film, good inspiratory effort, bilateral costophrenic and cardiac negative sectioning, no clear lung infiltrate appreciated. Subdiaphragmatic air on the right side. --Acute perforated duodenal ulcer and peritonitis S/p OR 01/22/2021 Continue with NGT Continue with antibiotics for gram-negative and anaerobic coverage Surgery on board Pain management --Peripheral vascular disease Right lower extremity very feeble pulse with purplish hue Arterial Duplex: mid right superficial femoral and dorsalis pedis arteries suggestive of high-grade stenosis versus occlusion. --COPD with emphysema Undiagnosed We will start the patient on Incruse to be used on a daily basis Outpatient follow-up with assignment agent Keep O2 saturation between 90-92% --Active smoker Advised to quit --Prophylaxis VTE: Heparin GI: Protonix Lines: Peripheral Diet: N.p.o. Plan: In/out: +4.2 L, urine output 980. IV fluids decreased to 80 mL/h. Potassium also removed from the IV fluids. Hypomagnesemia being replaced. Patient's blood pressure has been on the higher side. Started on metoprolol 5 mg IV every 8 hours with holding parameters. BUN/creatinine is stable. Patient urine output is picking up. If there is no significant urine output will give a dose of Lasix today. Patient's arterial duplex shows significant peripheral vascular disease and high-grade stenosis on the right side. We do not have vascular surgery for the next 2 weeks. Patient's lactate is within normal limit. I do not think it is an emergency but she might need stenting versus surgery in the near future. We will consider starting the patient on heparin drip if it is cleared by surgery. Please note the above document was generated using voice recognition software. It may contain grammatical, syntax or spelling errors.Any formal questions or concerns about the content, text or information contained within the body of this dictation should be directly addressed to the provider for clarification. (2) Pneumoperitoneum: (3) Peripheral artery disease: (4) Tobacco abuse: (5) COPD with emphysema: Admission and Anticipated Discharge Date Admission Date: January 22, 2021 Subjective Patient seen and examined at bedside. No acute distress, no adverse events overnight. Patient denies any chest pain, does complain of belly discomfort but it is tolerable. Denies any flatulence. No nausea or vomiting. Patient still has an NG tube in place which is to intermittent suction. YOHAN drain in place. No headache, no dizziness, no palpitations. Review of Systems Review of Systems: All systems reviewed & are unremarkable except as noted in Subjective Physical Exam Physical Exam: Constitutional: No acute distress HEENT: EOMI, PERRLA, positive NGT Respiratory system: Decreased air entry bilaterally, positive expiratory wheeze bilaterally, positive rhonchi right side, positive crackles bilateral lower lobes CVS: S1-S2 positive, no murmurs or gallops Abdomen: Soft, nontender, nondistended, decreased bowel sounds, YOHAN drain in place, incision dressed Extremities: +1 dorsalis pedis left side, right-sided dorsalis pedis is very feeble. There is purplish hue on the right lower extremity and it is cold, there is dry ulceration appreciated on the proximal hallux medial surface as well as small dry ulcer on the lateral fifth toe. Neuro: Awake alert oriented x3 Psych: Normal mood and affect G/U: Positive King Skin: no rashes, warm and dry Lymphatic: no cervical or axillary lymphadenopathy Results & Data Results & Data ([facility]) Vital Signs (Past 12 Hours) Vital Signs Temp Pulse Pulse Resp BP Pulse Ox 01/23/21 10:41 79 14 140/72 93 01/23/21 10:30 66 13 90 01/23/21 10:11 77 16 173/78 H 93 01/23/21 10:00 63 10 L 91 01/23/21 09:41 65 10 L 169/71 H 92 01/23/21 09:30 76 17 93 01/23/21 09:11 62 11 L 144/64 H 92 01/23/21 09:00 72 11 L 92 01/23/21 08:40 72 17 163/78 H 92 01/23/21 08:30 76 16 91 01/23/21 08:11 67 8 L 146/67 H 91 01/23/21 08:00 36.8 C 87 23 93 01/23/21 07:52 80 12 174/82 H 92 01/23/21 07:47 71 15 179/76 H 93 01/23/21 07:40 72 11 L 190/90 H 96 01/23/21 07:32 83 18 93 0328/21 07:30 87 18 93 01/23/21 07:23 89 01/23/21 07:10 81 13 161/83 H 94 01/23/21 07:00 89 20 94 01/23/21 06:41 67 8 L 165/74 H 94 01/23/21 06:30 75 19 95 01/23/21 06:10 89 29 H 175/81 H 94 01/23/21 05:40 75 15 150/67 H 95 01/23/21 05:11 68 7 L 157/64 H 95 01/23/21 04:40 36.5 C 74 9 L 144/66 H 92 01/23/21 04:10 71 9 L 164/65 H 95 01/23/21 03:40 70 14 161/76 H 94 01/23/21 03:10 71 13 176/77 H 94 01/23/21 02:40 88 21 182/90 H 94 01/23/21 02:10 82 15 182/92 H 93 01/23/21 01:40 92 H 15 189/88 H 95 01/23/21 01:10 80 16 188/82 H 92 01/23/21 00:40 36.6 C 77 18 186/74 H 96 01/23/21 00:10 69 19 157/68 H 96 01/23/21 00:00 95 H 01/23/21 04:20 01/23/21 04:20 Coding Level of Care Code 44492 Subseq Hosp Care Lvl 3 Diagnoses Gastric perforation K25.5 Pneumoperitoneum K66.8 Peripheral artery disease I73.9 Tobacco abuse Z72.0 COPD with emphysema J43.9
[2021-01-23] MEDS ORDERED: METOPROLOL TARTRATE 1 MG/ML VIAL IV SCH (14:00)
--- NOTE | 2021-01-23 15:09 | Electrocardiogram Report ---
Test Reason : Blood Pressure : / mmHG Vent. Rate : 093 BPM Atrial Rate : 093 BPM P-R Int : 144 ms QRS Dur : 098 ms QT Int : 372 ms P-R-T Axes : 067 066 072 degrees QTc Int : 462 ms Normal sinus rhythm Possible Left atrial enlargement Left ventricular hypertrophy Abnormal ECG No previous ECGs available Confirmed by Kvng Baig ([id number]) on 01/23/2021 3:08:42 PM Referred By: REFERRED SELF Confirmed By:Kvng Baig
[2021-01-23] MEDS ORDERED: Heparin IV Adult Wt-Based Low-Dose *NO* Bolus Protocol IV SCH (16:06)
[2021-01-23] MEDS: HEPARIN SODIUM/DEXTROSE 25,000 UNITS/500 ML BAG IV SCH (16:33)
--- NOTE | 2021-01-23 17:06 | Hospitalist Progress Note ---
Date of Service January 23, 2021 Assessment & Plan (1) Pneumoperitoneum: Likely from increased use of Aleve due to foot ulceration. patient taken to the OR in the afternoon 01/22/2021. Doing well postop, management predominantly by surgery. Ongoing PPI. NG tube. N.p.o. (2) Peripheral artery disease: Significant arterial disease, appears likely a candidate for revascularization. Does not appear to have critical urgent ischemia at this time, discussed with patient lack of immediate vascular surgery availability here, and the ability to transfer to a different facility if needed, or if she prefers. At this time she seems comfortable with her situation as long as we are watching her closely and she is adequate pain controlboth of which are the case at this time (3) Right foot ulcer: On antibiotics for her peritonitis, clinically I am not sure that she truly needs them for her foot, but obviously this will cover any foot infection she might have (4) Tobacco abuse: Recommend cessation (5) DVT prophylaxis: Currently anticoagulated as it relates to her peripheral vascular disease (6) Discharge planning issues: Ongoing ICU care, multidisciplinary management for now. Will likely have a prolonged hospitalization as she improves from her perforation, but then claudia xiong will need to progress to management of her arterial ischemia Admission and Anticipated Discharge Date Admission Date: January 22, 2021 Subjective Belly pain well controlled. Foot pain well controlled. Notes she was taking NSAIDs to help alleviate foot pain. Actually feels hungry, although she does not note any flatus or bowel movements. Answered all questions to the best my ability. Review of Systems Review of Systems: All systems reviewed & are unremarkable except as noted in HPI & below Physical Exam Physical Exam: In general she is awake and alert pleasant no distress. HEENT normocephalic atraumatic mucous membranes moist. Breathing unlabored no accessory muscle use good effort. Skin shows no rashes, right lower extremity is somewhat dusky with a little bit slow but very present capillary refill and arterial appearing ulcer on the medial foot without any surrounding erythema no exudate, I cannot palpate a DP pulse. Neuro shows no focal deficits. Results & Data Results & Data ([facility]) Vital Signs (Past 12 Hours) Vital Signs Temp Pulse Pulse Resp BP Pulse Ox 01/23/21 13:10 86 175/76 H 01/23/21 13:00 76 93 01/23/21 10:41 79 14 140/72 93 01/23/21 10:30 66 13 90 01/23/21 10:11 77 16 173/78 H 93 01/23/21 10:00 63 10 L 91 01/23/21 09:41 65 10 L 169/71 H 92 01/23/21 09:30 76 17 93 01/23/21 09:11 62 11 L 144/64 H 92 01/23/21 09:00 72 11 L 92 01/23/21 08:40 72 17 163/78 H 92 01/23/21 08:30 76 16 91 01/23/21 08:11 67 8 L 146/67 H 91 01/23/21 08:00 98.2 F 87 23 93 01/23/21 07:52 80 12 174/82 H 92 01/23/21 07:47 71 15 179/76 H 93 01/23/21 07:40 72 11 L 190/90 H 96 01/23/21 07:32 83 18 93 01/23/21 07:30 87 18 93 01/23/21 07:23 89 01/23/21 07:10 81 13 161/83 H 94 01/23/21 07:00 89 20 94 01/23/21 06:41 67 8 L 165/74 H 94 01/23/21 06:30 75 19 95 01/23/21 06:10 89 29 H 175/81 H 94 01/23/21 05:40 75 15 150/67 H 95 01/23/21 05:11 68 7 L 157/64 H 95 PG Care Time/CCT Total # of Minutes Spent Total Time Spent with Patient: Total time spent is greater than 50% in coordination of care (as documented) at patient's floor/unit and/or counseling patient: Coding Level of Care Code 63958 Subseq Hosp Care Lvl 3 Diagnoses Pneumoperitoneum K66.8 Peripheral artery disease I73.9 Right foot ulcer L97.519 Tobacco abuse Z72.0 DVT prophylaxis Z29.9 Discharge planning issues Z02.9
[2021-01-23] MEDS: METOPROLOL TARTRATE 1 MG/ML VIAL IV SCH ×2 (19:11→23:51)
[2021-01-23] MEDS: hydrALAZINE HCL 20 MG/ML VIAL IV PRN (20:40)
[2021-01-23] MEDS ORDERED: LABETALOL HCL IV 5 MG/ML 20ML IV PRN (22:24)
[2021-01-23] MEDS ORDERED: SODIUM CHLORIDE 0.9% 1000ML 1,000 ML IV SCH (22:45)
[2021-01-23 22:59] LABS: Partial Thromboplastin Ratio 1.7; Partial Thromboplastin Time 44.1 Seconds (21.0-31.0)
[2021-01-23] MEDS ORDERED: STAT IV Infusion **Titration per Protocol STA (23:27)
[2021-01-23] MEDS: niCARdipine 25 MG in SODIUM CHLORIDE 0.9% 240 ML IV SCH (23:48)
[2021-01-24] MEDS ORDERED: LORazepam 2 MG/4 ML VIAL IV PRN (02:49)
[2021-01-24] MEDS ORDERED: LORazepam 1 MG/2 ML VIAL IV PRN (02:49)
[2021-01-24] MEDS ORDERED: LORazepam 3 MG/6 ML VIAL IV PRN (02:49)
[2021-01-24] MEDS ORDERED: ATIVAN IV ALCOHOL WITHDRAWL IV PRN (02:49)
[2021-01-24] MEDS ORDERED: FUROSEMIDE 20 MG in SYRINGE 0 ML IV ONE (02:49)
[2021-01-24] MEDS: PIPERACILLIN/TAZOBACTAM 3.375 GM in DEXTROSE 5% 100 ML IV SCH ×3 (02:59→17:12)
[2021-01-24] MEDS: niCARdipine 25 MG in SODIUM CHLORIDE 0.9% 240 ML IV SCH (03:07)
[2021-01-24] MEDS: HYDROmorphone INJ 1 MG/ML SYRINGE IV PRN ×2 (04:09→23:28)
[2021-01-24 05:30] LABS: Basophils # (auto) 0.02 K/uL (0-0.2); Basophils % (auto) 0.2 %; Eosinophils # (auto) 0.05 K/uL (0-0.5); Eosinophils % (auto) 0.4 %; Hematocrit (blood only) 42.4 % (37-47); Hemoglobin 14.3 g/dL (12.0-16.0); Immature Granulocytes # (auto) 0.04 K/uL (0.00-0.02); Immature Granulocytes % (auto) 0.3 %; Lymphocytes # (auto) 0.58 K/uL (1.2-3.4); Lymphocytes % (auto) 4.9 %; Mean Corpuscular Hemoglobin 35.3 pg (25-34); Mean Corpuscular Hgb Conc 33.7 g/dL (32-36); Mean Corpuscular Volume 104.7 fL (80-100); Mean Platelet Volume 9.4 fL (7.4-10.4); Monocytes # (auto) 0.59 K/uL (0.11-0.59); Neutrophils # (auto) 10.62 K/uL (1.4-6.5); Neutrophils % (auto) 89.2 %; Platelet Count 185 K/uL (130-400); RDW Coefficient of Variation 13.3 % (11.5-14.5); Red Blood Count 4.05 M/uL (4.2-5.4)
[2021-01-24 05:51] LABS: Partial Thromboplastin Ratio 1.8
[2021-01-24 05:52] LABS: Partial Thromboplastin Time 47.4 Seconds (21.0-31.0)
[2021-01-24 06:13] LABS: Albumin Globulin Ratio 0.7 (0.9-2); Albumin Level 2.5 gm/dl (3.4-5.0); BUN Creatinine Ratio 17.4 (10-20); Bilirubin,Total 0.6 mg/dl (0.2-1); Creatinine Clr Calc Pharmacy 82.8 ml/min; Est GFR (African American) 115.7; Est GFR (Non-African American) 99.8; Globulin 3.7 gm/dl (2.5-4.0); Magnesium 1.6 mg/dl (1.8-2.4); Phosphorus 1.7 mg/dl (2.5-4.9); Total Protein 6.2 gm/dl (6.4-8.2)
[2021-01-24] MEDS: METOPROLOL TARTRATE 1 MG/ML VIAL IV SCH ×4 (06:18→23:26)
[2021-01-24] MEDS ORDERED: POTASSIUM PHOS 3 MMOL/1 ML INFUSION IV STA (06:26)
[2021-01-24] MEDS ORDERED: POTASSIUM PHOSPHATE 30 MMOL in SODIUM CHLORIDE 0.9% 500 ML IV ONE (06:45)
[2021-01-24] MEDS: POTASSIUM CHLORIDE / WTR 10 MEQ/100 ML PLCT IV SCH ×2 (06:56→08:04)
[2021-01-24] MEDS: MAGNESIUM SULFATE / D5W 1 GM/100 ML BAG IV SCH ×3 (06:56→09:49)
[2021-01-24] MEDS ORDERED: ALBUT/IPRATROP 3MG/0.5MG NEB 3 ML VIAL NEB SCH (07:00)
--- NOTE | 2021-01-24 07:01 | Surgery Progress Note ---
Date of Service January 24, 2021 Assessment & Plan (1) H/O exploratory laparotomy: Patient with respiratory failure and hypoxia She also has significant hypertension She seemed to respond well to a dose of Lasix with positive fluid balance Drains are nonbilious Right leg is ischemic but does have sluggish capillary refill Patient should continue n.p.o. possible contrast study tomorrow/Sunday Continue NG tube Acute/chronic problems of COPD, respiratory failure, and severe peripheral vascular disease are obviously concerning Admission and Anticipated Discharge Date Admission Date: January 22, 2021 Results & Data ([facility]) Vital Signs (Past 12 Hours) Vital Signs Temp Pulse Pulse Resp BP Pulse Ox 01/24/21 06:18 88 136/68 01/24/21 04:47 83 12 126/66 92 01/24/21 04:32 90 13 122/62 90 01/24/21 04:17 36.7 C 81 13 120/54 L 88 L 01/24/21 04:02 82 16 125/58 L 89 L 01/24/21 03:47 83 16 115/58 L 88 L 01/24/21 03:32 87 15 122/60 88 L 01/24/21 03:18 101 H 16 131/65 86 L 01/24/21 03:02 97 H 17 156/70 H 90 01/24/21 02:48 113 H 28 H 174/89 H 88 L 01/24/21 02:33 108 H 23 165/69 H 91 01/24/21 02:17 96 H 17 159/68 H 89 L 01/24/21 02:02 96 H 17 160/64 H 88 L 01/24/21 01:47 96 H 14 163/72 H 88 L 01/24/21 01:33 90 16 162/73 H 89 L 01/24/21 01:17 90 16 153/74 H 89 L 01/24/21 01:02 98 H 17 176/79 H 87 L 01/24/21 00:47 103 H 20 171/78 H 88 L 01/24/21 00:32 92 H 15 164/79 H 89 L 01/24/21 00:17 93 H 16 173/82 H 89 L 01/24/21 00:02 36.6 C 91 H 16 182/85 H 89 L 01/24/21 00:00 89 01/23/21 23:51 92 H 191/86 H 01/23/21 23:21 93 H 15 191/86 H 94 01/23/21 23:08 86 17 186/80 H 93 01/23/21 22:35 98 H 18 216/94 H 89 L 01/23/21 22:22 99 H 17 206/95 H 89 L 01/23/21 22:16 94 H 17 215/104 H 87 L 01/23/21 21:16 83 18 164/75 H 89 L 01/23/21 20:56 80 19 168/75 H 91 01/23/21 20:16 36.4 C L 79 16 209/86 H 92 01/23/21 19:45 77 18 185/104 H 93 01/23/21 19:11 84 195/63 H 01/23/21 19:09 80 20 93 PG Care Time/CCT Total # of Minutes Spent Total Time Spent with Patient: Total time spent is greater than 50% in coordination of care (as documented) at patient's floor/unit and/or counseling patient: Coding Level of Care Code None Diagnoses H/O exploratory laparotomy Z98.890
--- NOTE | 2021-01-24 07:18 | XRay Report ---
XR chest 1V portable CLINICAL HISTORY: Respiratory failure. COMPARISON STUDY: Chest radiograph January 22, 2021. FINDINGS: Nasogastric tube tip is at least within the body of the stomach. The tube may be coiled wit hin the stomach. There is no pneumothorax. There is no pneumothorax. Small right pleural effusion has developed. There is interstitial thickening and bilateral opacities. Cardiomediastinal silhouette is stable. IMPRESSION: 1. Increase in bilateral opacities and interstitial thickening. The findings may reflect an infectiou s process or pulmonary edema. Radiographic follow-up is recommended. 2. Small right pleural effusion. ACT 112: Negative or not required by law. Electronically signed by: Km Carey M.D. 01/24/2021 7:17 AM
[2021-01-24] MEDS: PANTOprazole 40 MG in SYRINGE 0 ML IV SCH ×2 (08:04→19:56)
[2021-01-24] MEDS: UMECLIDINIUM BROMIDE 62.5MCG/BLISTER 7 PUFFS/INHALER INH SCH (08:04)
[2021-01-24] MEDS: THIAMINE HCL 100 MG in SYRINGE 9 ML IV SCH (08:04)
[2021-01-24] MEDS: FOLIC ACID 1 MG in SYRINGE 9.8 ML IV SCH (08:04)
[2021-01-24] MEDS: NICOTINE 14 MG/24 HR PATCH TD SCH (08:15)
[2021-01-24] MEDS ORDERED: methylPREDNISolone 60 MG in SYRINGE 0 ML IV SCH (09:00)
[2021-01-24] MEDS: LABETALOL HCL IV 5 MG/ML 20ML IV PRN ×4 (09:26→19:53)
[2021-01-24] MEDS: hydrALAZINE HCL 20 MG/ML VIAL IV PRN ×3 (11:07→18:31)
--- NOTE | 2021-01-24 11:33 | XCELERA ---
[id number]
--- NOTE | 2021-01-24 12:17 | Critical Care Progress Note ---
Date of Service January 24, 2021 Assessment & Plan (1) Gastric perforation: Chest x-ray 01/22/2021 personally reviewed: Portable film, good inspiratory effort, bilateral costophrenic and cardiac negative sectioning, no clear lung infiltrate appreciated. Subdiaphragmatic air on the right side. --Acute perforated duodenal ulcer and peritonitis S/p OR 01/22/2021 Continue with NGT Continue with antibiotics for gram-negative and anaerobic coverage Surgery on board Pain management --Peripheral vascular disease Right lower extremity very feeble pulse with purplish hue Arterial Duplex: mid right superficial femoral and dorsalis pedis arteries suggestive of high-grade stenosis versus occlusion. --COPD with emphysema Undiagnosed We will start the patient on Incruse to be used on a daily basis Outpatient follow-up with apprentice jockey Keep O2 saturation between 90-92% --Active smoker Advised to quit --Prophylaxis VTE: Heparin GI: Protonix Lines: Peripheral Diet: N.p.o. Plan: Patient stable to transfer to floor. Hypertensive urgency and pulmonary edema have improved with Lasix. She has critical stenosis of the right lower extremity. Discussed with Dr. Dias. He plans on an intervention in the next 1 to 2 days once respiratory status improves. Continue heparin drip. Continue Zosyn per general surgery for recent abdominal surgery. Will discontinue Solu- Medrol to do not think she is in a COPD exacerbation at this time. Likely pulmonary edema related. Replacing electrolytes. Repeat BMP pending. Please note the above document was generated using voice recognition software. It may contain grammatical, syntax or spelling errors.Any formal questions or concerns about the content, text or information contained within the body of this dictation should be directly addressed to the provider for clarification. (2) Pneumoperitoneum: (3) Peripheral artery disease: (4) Tobacco abuse: (5) COPD with emphysema: (6) Pulmonary edema: Admission and Anticipated Discharge Date Admission Date: January 22, 2021 Subjective Patient seen and examined this morning. She is stable. She is requiring. Of oxygen. She did have a hypotensive episode overnight and had an oxygen mask up to 12 L of oxygen. She denies any chest pain. She received Lasix overnight with as needed antihypertensive. Review of Systems Review of Systems: All systems reviewed & are unremarkable except as noted in HPI & below Physical Exam Physical Exam: Constitutional: No acute distress HEENT: EOMI, PERRLA, positive NGT Respiratory system: Decreased air entry bilaterally, positive expiratory wheeze bilaterally, positive rhonchi right side, positive crackles bilateral lower lobes CVS: S1-S2 positive, no murmurs or gallops Abdomen: Soft, nontender, nondistended, decreased bowel sounds, YOHAN drain in place, incision dressed Extremities: +1 dorsalis pedis left side, right-sided dorsalis pedis is very week. Neuro: Awake alert oriented x3 Psych: Normal mood and affect G/U: Positive King Skin: no rashes, warm and dry Lymphatic: no cervical or axillary lymphadenopathy Results & Data Results & Data ([facility]) Vital Signs (Past 12 Hours) Vital Signs Temp Pulse Pulse Resp BP Pulse Ox 01/24/21 11:45 94 H 152/84 H 01/24/21 11:33 98 H 26 H 152/84 H 91 01/24/21 11:30 99 H 21 91 01/24/21 11:18 86 17 157/75 H 91 01/24/21 11:13 89 22 162/76 H 92 01/24/21 11:04 93 H 16 92 01/24/21 11:03 88 26 H 169/78 H 91 01/24/21 11:00 92 H 23 91 01/24/21 10:48 93 H 23 175/95 H 91 01/24/21 10:33 88 16 165/78 H 90 01/24/21 10:30 93 H 18 91 01/24/21 10:18 90 19 165/78 H 91 01/24/21 10:03 93 H 15 169/81 H 01/24/21 10:00 87 23 91 01/24/21 09:48 85 17 152/66 H 90 01/24/21 09:34 80 24 91 01/24/21 09:33 86 23 149/72 H 90 01/24/21 09:30 81 19 90 01/24/21 09:27 86 29 H 138/65 92 01/24/21 09:18 104 H 21 192/79 H 95 01/24/21 09:04 101 H 27 H 95 01/24/21 09:03 106 H 17 96 01/24/21 09:02 105 H 17 94 01/24/21 09:00 108 H 18 95 01/24/21 08:48 104 H 28 H 178/80 H 94 01/24/21 08:33 106 H 26 H 158/75 H 95 01/24/21 08:30 99 H 17 93 01/24/21 08:18 111 H 17 94 01/24/21 08:03 102 H 18 162/82 H 93 01/24/21 08:00 98.4 F 110 H 15 91 01/24/21 07:48 94 H 19 151/80 H 86 L 01/24/21 07:37 97 H 21 130/90 92 01/24/21 07:33 102 H 16 167/83 H 90 01/24/21 07:30 101 H 18 91 01/24/21 07:18 108 H 23 155/83 H 93 01/24/21 07:11 107 H 23 93 01/24/21 07:03 101 H 27 H 155/76 H 93 01/24/21 07:00 94 H 14 93 01/24/21 06:48 99 H 26 H 148/88 H 93 01/24/21 06:33 88 15 146/69 H 92 01/24/21 06:30 85 12 93 01/24/21 06:18 86 12 136/68 89 L 01/24/21 06:03 82 12 124/61 89 L 01/24/21 06:00 87 12 90 01/24/21 05:48 89 12 138/64 90 01/24/21 05:33 90 13 146/66 H 92 01/24/21 05:30 91 H 14 88 L 01/24/21 05:18 103 H 14 173/79 H 88 L 01/24/21 05:03 105 H 17 151/70 H 89 L 01/24/21 05:00 97 H 21 90 01/24/21 04:47 83 12 126/66 92 01/24/21 04:32 90 13 122/62 90 01/24/21 04:17 98.1 F 81 13 120/54 L 88 L 01/24/21 04:02 82 16 125/58 L 89 L 01/24/21 03:47 83 16 115/58 L 88 L 01/24/21 03:32 87 15 122/60 88 L 01/24/21 03:18 101 H 16 131/65 86 L 01/24/21 03:02 97 H 17 156/70 H 90 01/24/21 02:48 113 H 28 H 174/89 H 88 L 01/24/21 02:33 108 H 23 165/69 H 91 01/24/21 02:17 96 H 17 159/68 H 89 L 01/24/21 02:02 96 H 17 160/64 H 88 L 01/24/21 01:47 96 H 14 163/72 H 88 L 01/24/21 01:33 90 16 162/73 H 89 L 01/24/21 01:17 90 16 153/74 H 89 L 01/24/21 01:02 98 H 17 176/79 H 87 L 01/24/21 00:47 103 H 20 171/78 H 88 L 01/24/21 00:32 92 H 15 164/79 H 89 L 01/24/21 00:17 93 H 16 173/82 H 89 L I reviewed the relevant vital signs, labs and imaging and recent notes. Coding Level of Care Code 23012 Subseq Hosp Care Lvl 3 Diagnoses Gastric perforation K25.5 Pneumoperitoneum K66.8 Peripheral artery disease I73.9 Tobacco abuse Z72.0 COPD with emphysema J43.9 Pulmonary edema J81.1
[2021-01-24 12:48] LABS: BUN Creatinine Ratio 12.1 (10-20); Calcium 8.5 mg/dl (8.5-10.1); Creatinine Clr Calc Pharmacy 79.9 ml/min; Est GFR (African American) 114.3; Est GFR (Non-African American) 98.7; Potassium 3.3 mmol/L (3.5-5.1)
--- NOTE | 2021-01-24 15:11 | Vascular Medicine Consultation ---
Date of Consultation January 24, 2021 Assessment & Plan (1) Peripheral artery disease: 2. Perforated duodenal ulcer post surgical repair 3. Volume overload 4. COPD 5. Ongoing tobacco abuse Patient seen today in the setting of chronic right lower extremity ulceration. Exam and non-invasive vascular testing suggestive of chronic critical limb ischemia. At risk, threatened limb would benefit from revascularization. Review of arterial imaging consistent with right SFA occlusion likely amenable to endovascular intervention. Recommend proceeding with bilateral LE angiogram and likely intervention while inpatient when respiratory and surgical issues stable. Could tentatively do procedure Sunday afternoon. In the interim continue heparin infusion. Will hold off on antiplatelet therapy for now. Thank you for allowing us to participate in the care of this patient. Please contact with any questions. History of Present Illness Attending Physician: Betito Craig MD, FACS History of Present Illness Ms. Mauricio is a 65-year-old woman seen in the ICU for lower extremity ulceration in the setting of PAD. Patient admitted to [facility] on 01/22 in the setting of acute abdominal pain found to have a perforated duodenal ulcer for which underwent urgent surgical repair with Dr. Craig. Had been taking increased NSAIDs in the setting of right lower extre mity pain and ulceration. Prior medical history remarkable for COPD. Active smoker. No prior vascular history. Right lower extremity ulcers present since August after she had a pedicure. Has been seeing a doctor near [place] for her wound. Sounds like an angiogram had been planned. Reports intermittent pain at rest and with walking on her foot. States she still very active, on her feet at her job at [employer]. Reports intermittent bilateral claudication. Denies any preceding fevers or chills. Currently remains n.p.o., NG in place, on broad-spectrum antibiotics. Hypoxic this morning requiring 12 L. Responded to IV Lasix, -2 L. Recent vascular testing: Arterial duplex 01/22/2021: Right lower extremityoccluded occluded distal SFA. Blunted monophasic flow in popliteal. No flow noted in DPA. No high-grade stenosis left lower extremity to the foot with monophasic/biphasic distal waveforms. Echo todayLVEF 65%, mild LVH, no valvular pathology Allergies Allergy/AdvReac Type Severity Reaction Status Date / Time No Known Allergies Allergy Mild Unverified 01/22/21 10:32 Home Medications Medication Instructions Recorded Confirmed Type No Known Home Medications 01/22/21 01/22/21 History Patient History Medical History (Updated 01/24/21 @ 12:16 by Demario Guillen MD) Patient denies significant medical history Pulmonary edema Surgical History (Updated 01/24/21 @ 10:14 by Vicky Jackson RN) H/O exploratory laparotomy (01/22/21) Exploratory laparotomy, oversew perforated duodenal ulcer, abdominal washout. Dr. Craig 01/22/2021 H/O tubal ligation Social History Smoking Status: Current every day smoker Tobacco Type: Cigarettes Hx Alcohol Use: Yes Alcohol type: beer Hx Substance Use: No Preferred Language: Portuguese Communication Ability: Effective Animal Cruelty Investigation Supervisor Required: No Beliefs That Will Affect Care: None marital status: Current Living Situation: Spouse Feels Safe at Home: Yes Safety Concerns: Feels Safe At This Time Assistive Devices: Glasses Review of Systems Review of Systems: All systems reviewed & are unremarkable except as noted in HPI & below Physical Exam Physical Exam: General: Thin, no acute distress Eyes: Sclerae anicteric HENT: NG in place Lungs: Few crackles at bases, prolonged expiratory phase with few scattered wheezes Cardiac: Regular rate and rhythm, no murmurs Abdomen: Soft, nondistended Neuro: Nonfocal Psych: Alert orient x3, normal affect and mood Extremities/Vascular: -- 2+ radial bilaterally --1+ femoral bilaterally --Nonpalpable popliteal --1+ DP on the left. Nonpalpable DP/PT on the right. Purplish discoloration of right foot. Sluggish capillary refill in all digits. Approximately 2 cm area of eschar over medial forefoot at the level of first MTP. Results & Data ([facility]) Vital Signs (Past 12 Hours) Vital Signs Temp Pulse Pulse Resp BP Pulse Ox 01/24/21 14:48 89 20 138/73 91 01/24/21 14:33 92 H 18 174/81 H 91 01/24/21 14:30 97 H 19 91 01/24/21 14:18 95 H 26 H 154/74 H 90 01/24/21 14:04 94 H 15 153/90 H 89 L 01/24/21 14:00 88 20 90 01/24/21 13:48 90 24 144/72 H 90 01/24/21 13:41 91 H 18 129/70 88 L 01/24/21 13:33 103 H 21 176/91 H 89 L 01/24/21 13:30 109 H 26 H 90 01/24/21 13:19 110 H 29 H 178/92 H 90 01/24/21 13:03 100 H 22 190/84 H 90 01/24/21 13:00 100 H 21 89 L 01/24/21 12:57 98 H 25 H 170/85 H 93 01/24/21 12:55 101 H 24 173/78 H 93 01/24/21 12:48 92 H 20 169/78 H 92 01/24/21 12:33 86 22 164/70 H 93 01/24/21 12:30 85 16 94 01/24/21 12:18 89 34 H 169/78 H 93 01/24/21 12:03 92 H 19 166/86 H 92 01/24/21 12:00 82 20 92 01/24/21 11:48 82 16 165/73 H 92 01/24/21 11:45 94 H 152/84 H 01/24/21 11:34 96 H 25 H 92 01/24/21 11:33 98 H 26 H 152/84 H 91 01/24/21 11:30 99 H 21 91 01/24/21 11:18 86 17 157/75 H 91 01/24/21 11:13 89 22 162/76 H 92 01/24/21 11:04 93 H 16 92 01/24/21 11:03 88 26 H 169/78 H 91 01/24/21 11:00 92 H 23 91 01/24/21 10:48 93 H 23 175/95 H 91 01/24/21 10:33 88 16 165/78 H 90 01/24/21 10:30 93 H 18 91 01/24/21 10:18 90 19 165/78 H 91 01/24/21 10:03 93 H 15 169/81 H 01/24/21 10:00 87 23 91 01/24/21 09:48 85 17 152/66 H 90 01/24/21 09:34 80 24 91 01/24/21 09:33 86 23 149/72 H 90 01/24/21 09:30 81 19 90 01/24/21 09:27 86 29 H 138/65 92 01/24/21 09:18 104 H 21 192/79 H 95 01/24/21 09:04 101 H 27 H 95 01/24/21 09:03 106 H 17 96 01/24/21 09:02 105 H 17 94 01/24/21 09:00 108 H 18 95 01/24/21 08:48 104 H 28 H 178/80 H 94 01/24/21 08:33 106 H 26 H 158/75 H 95 01/24/21 08:30 99 H 17 93 01/24/21 08:18 111 H 17 94 01/24/21 08:03 102 H 18 162/82 H 93 01/24/21 08:00 98.4 F 110 H 15 91 01/24/21 07:48 94 H 19 151/80 H 86 L 01/24/21 07:37 97 H 21 130/90 92 01/24/21 07:33 102 H 16 167/83 H 90 01/24/21 07:30 101 H 18 91 01/24/21 07:18 108 H 23 155/83 H 93 01/24/21 07:11 107 H 23 93 01/24/21 07:03 101 H 27 H 155/76 H 93 01/24/21 07:00 94 H 14 93 01/24/21 06:48 99 H 26 H 148/88 H 93 01/24/21 06:33 88 15 146/69 H 92 01/24/21 06:30 85 12 93 01/24/21 06:18 86 12 136/68 89 L 01/24/21 06:03 82 12 124/61 89 L 01/24/21 06:00 87 12 90 01/24/21 05:48 89 12 138/64 90 01/24/21 05:33 90 13 146/66 H 92 01/24/21 05:30 91 H 14 88 L 01/24/21 05:18 103 H 14 173/79 H 88 L 01/24/21 05:03 105 H 17 151/70 H 89 L 01/24/21 05:00 97 H 21 90 01/24/21 04:47 83 12 126/66 92 01/24/21 04:32 90 13 122/62 90 01/24/21 04:17 98.1 F 81 13 120/54 L 88 L 03/29/21 04:02 82 16 125/58 L 89 L 01/24/21 03:47 83 16 115/58 L 88 L 01/24/21 03:32 87 15 122/60 88 L 01/24/21 03:18 101 H 16 131/65 86 L 01/24/21 03:02 97 H 17 156/70 H 90 PG Care Time/CCT Total # of Minutes Spent Total Time Spent with Patient: Total time spent is greater than 50% in coordination of care (as documented) at patient's floor/unit and/or counseling patient: Coding Level of Care Code 25201 Inpt Consult Level 4 Diagnoses Peripheral artery disease I73.9
[2021-01-24] MEDS: HEPARIN SODIUM/DEXTROSE 25,000 UNITS/500 ML BAG IV SCH (16:42)
--- NOTE | 2021-01-24 19:14 | Hospitalist Progress Note ---
Date of Service January 24, 2021 Assessment & Plan (1) Pneumoperitoneum: Likely from increased use of Aleve due to foot ulceration. patient taken to the OR in the afternoon 01/22/2021. Doing well postop, management predominantly by surgery. Ongoing PPI. NG tube. N.p.o. for now, but hopefully will be a start p.o. intake in the coming days (2) Peripheral artery disease: Significant arterial disease, appears likely a candidate for revascularization. Fortunately, we may be able to proceed with vascular intervention in the near future. Continue wound care. (3) Right foot ulcer: On antibiotics for her peritonitis, clinically I am not sure that she truly needs them for her foot, but obviously this will cover any foot infection she might have, ongoing local wound care, revascularization as well (4) Pulmonary edema: Appears most likely to be acute diastolic CHF. Improved with diuresis. Follow. (5) Tobacco abuse: Recommend cessation, will need to discuss this with her further as she recovers (6) DVT prophylaxis: Currently anticoagulated as it relates to her peripheral vascular disease (7) Discharge planning issues: Ongoing ICU care, multidisciplinary management for now. Eventually PT/OT and work on dispo planning, but right now she is still quite ill Admission and Anticipated Discharge Date Admission Date: January 22, 2021 Subjective Sleeping comfortably whenever I see her. Extensive update from nursing, patient put out a lot of urine, and breathing improved. Physical Exam Physical Exam: Resting comfortably no distress. Breathing unlabored on oxygen mask no accessory muscle use. No pallor no icterus. Results & Data Results & Data ([facility]) Vital Signs (Past 12 Hours) Vital Signs Temp Pulse Resp BP Pulse Ox 01/24/21 15:18 98.2 F 94 H 18 150/73 H 93 01/24/21 15:03 91 H 15 162/84 H 92 01/24/21 15:00 96 H 22 90 01/24/21 14:49 94 H 17 91 01/24/21 14:48 89 20 138/73 91 01/24/21 14:33 92 H 18 174/81 H 91 01/24/21 14:30 97 H 19 91 01/24/21 14:18 95 H 26 H 154/74 H 90 01/24/21 14:04 94 H 15 153/90 H 89 L 01/24/21 14:00 88 20 90 01/24/21 13:48 90 24 144/72 H 90 01/24/21 13:41 91 H 18 129/70 88 L 01/24/21 13:33 103 H 21 176/91 H 89 L 01/24/21 13:30 109 H 26 H 90 01/24/21 13:19 110 H 29 H 178/92 H 90 01/24/21 13:03 100 H 22 190/84 H 90 01/24/21 13:00 100 H 21 89 L 01/24/21 12:57 98 H 25 H 170/85 H 93 01/24/21 12:55 101 H 24 173/78 H 93 01/24/21 12:48 92 H 20 169/78 H 92 01/24/21 12:33 86 22 164/70 H 93 01/24/21 12:30 85 16 94 01/24/21 12:18 89 34 H 169/78 H 93 01/24/21 12:03 92 H 19 166/86 H 92 01/24/21 12:00 82 20 92 01/24/21 11:48 82 16 165/73 H 92 01/24/21 11:45 94 H 152/84 H 01/24/21 11:34 96 H 25 H 92 01/24/21 11:33 98 H 26 H 152/84 H 91 01/24/21 11:30 99 H 21 91 01/24/21 11:18 86 17 157/75 H 91 01/24/21 11:13 89 22 162/76 H 92 01/24/21 11:04 93 H 16 92 01/24/21 11:03 88 26 H 169/78 H 91 01/24/21 11:00 92 H 23 91 01/24/21 10:48 93 H 23 175/95 H 91 01/24/21 10:33 88 16 165/78 H 90 01/24/21 10:30 93 H 18 91 01/24/21 10:18 90 19 165/78 H 91 01/24/21 10:03 93 H 15 169/81 H 01/24/21 10:00 87 23 91 01/24/21 09:48 85 17 152/66 H 90 01/24/21 09:34 80 24 91 01/24/21 09:33 86 23 149/72 H 90 01/24/21 09:30 81 19 90 03/29/21 09:27 86 29 H 138/65 92 01/24/21 09:18 104 H 21 192/79 H 95 01/24/21 09:04 101 H 27 H 95 01/24/21 09:03 106 H 17 96 01/24/21 09:02 105 H 17 94 01/24/21 09:00 108 H 18 95 01/24/21 08:48 104 H 28 H 178/80 H 94 01/24/21 08:33 106 H 26 H 158/75 H 95 01/24/21 08:30 99 H 17 93 01/24/21 08:18 111 H 17 94 01/24/21 08:03 102 H 18 162/82 H 93 01/24/21 08:00 98.4 F 110 H 15 91 01/24/21 07:48 94 H 19 151/80 H 86 L 01/24/21 07:37 97 H 21 130/90 92 01/24/21 07:33 102 H 16 167/83 H 90 01/24/21 07:30 101 H 18 91 01/24/21 07:18 108 H 23 155/83 H 93 PG Care Time/CCT Total # of Minutes Spent Total Time Spent with Patient: Total time spent is greater than 50% in coordination of care (as documented) at patient's floor/unit and/or counseling patient: Coding Level of Care Code 23025 Subseq Hosp Care Lvl 1 Diagnoses Pneumoperitoneum K66.8 Peripheral artery disease I73.9 Right foot ulcer L97.519 Pulmonary edema J81.1 Tobacco abuse Z72.0 DVT prophylaxis Z29.9 Discharge planning issues Z02.9
[2021-01-25] MEDS: PIPERACILLIN/TAZOBACTAM 3.375 GM in DEXTROSE 5% 100 ML IV SCH ×3 (02:00→17:06)
[2021-01-25] MEDS: hydrALAZINE HCL 20 MG/ML VIAL IV PRN ×2 (04:07→09:40)
[2021-01-25] MEDS: HYDROmorphone INJ 1 MG/ML SYRINGE IV PRN ×4 (04:08→20:05)
[2021-01-25] MEDS: LABETALOL HCL IV 5 MG/ML 20ML IV PRN (04:52)
[2021-01-25 05:11] LABS: Hematocrit (blood only) 42.4 % (37-47); Hemoglobin 14.9 g/dL (12.0-16.0); Immature Granulocytes # (auto) 0.02 K/uL (0.00-0.02); Immature Granulocytes % (auto) 0.1 %; Lymphocytes # (auto) 1.13 K/uL (1.2-3.4); Lymphocytes % (auto) 8.4 %; Mean Corpuscular Hemoglobin 35.1 pg (25-34); Mean Corpuscular Hgb Conc 35.1 g/dL (32-36); Mean Platelet Volume 9.2 fL (7.4-10.4); Monocytes # (auto) 0.12 K/uL (0.11-0.59); Monocytes % (auto) 0.9 %; Neutrophils # (auto) 12.21 K/uL (1.4-6.5); Neutrophils % (auto) 90.6 %; Platelet Count 235 K/uL (130-400); RDW Coefficient of Variation 12.9 % (11.5-14.5); RDW Standard Deviation 46.9 fL (36.4-46.3); Red Blood Count 4.24 M/uL (4.2-5.4); White Blood Count 13.48 K/uL (4.8-10.8)
[2021-01-25 05:22] LABS: Partial Thromboplastin Ratio 1.4; Partial Thromboplastin Time 38.1 Seconds (21.0-31.0)
[2021-01-25 05:32] LABS: Albumin Level 2.5 gm/dl (3.4-5.0); BUN Creatinine Ratio 22.2 (10-20); Calcium 8.5 mg/dl (8.5-10.1); Creatinine Clr Calc Pharmacy 79.9 ml/min; Est GFR (African American) 114.3; Est GFR (Non-African American) 98.7
[2021-01-25 05:35] LABS: Albumin Globulin Ratio 0.6 (0.9-2); Bilirubin,Total 0.4 mg/dl (0.2-1); Globulin 4.1 gm/dl (2.5-4.0); Total Protein 6.6 gm/dl (6.4-8.2)
[2021-01-25] MEDS: METOPROLOL TARTRATE 1 MG/ML VIAL IV SCH ×4 (05:37→23:19)
--- NOTE | 2021-01-25 07:41 | Surgery Progress Note ---
Date of Service January 25, 2021 Assessment & Plan (1) H/O exploratory laparotomy: Much improved this morning-no respiratory distress Responded to diuresis Drainage as expected We will check a limited contrast study and try to remove her NG tube Possibly begin sips of liquids Admission and Anticipated Discharge Date Admission Date: January 22, 2021 Results & Data ([facility]) Vital Signs (Past 12 Hours) Vital Signs Temp Pulse Resp BP Pulse Ox 01/25/21 05:55 73 15 141/62 H 85 L 01/25/21 05:37 76 154/87 H 01/25/21 05:09 96 H 19 154/81 H 91 01/25/21 04:50 94 H 15 173/70 H 91 01/25/21 03:49 36.4 C L 94 H 17 182/118 H 93 01/25/21 00:00 93 H 01/24/21 23:49 36.8 C 88 12 150/73 H 94 01/24/21 23:28 101 H 13 185/87 H 92 01/24/21 23:26 100 H 185/87 H 01/24/21 20:15 36.5 C 91 H 17 154/71 H 91 01/24/21 19:48 97 H 23 183/83 H 90 PG Care Time/CCT Total # of Minutes Spent Total Time Spent with Patient: Total time spent is greater than 50% in co ordination of care (as documented) at patient's floor/unit and/or counseling patient: Coding Level of Care Code None Diagnoses H/O exploratory laparotomy Z98.890
--- NOTE | 2021-01-25 08:47 | Fluoroscopy Report ---
UPPER GI UTILIZING OPTIRAY VIA THE NASOGASTRIC TUBE CLINICAL HISTORY: h/o perforated ulcer- pylorus, r/o leak COMPARISON STUDY: CT of the abdomen and pelvis January 22, 2021. FLUOROSCOPY TIME: 1.1 minutes. FLUOROSCOPIC IMAGES: 10. FINDINGS: Die Designer fluoroscopic image of the abdomen was obtained. This demonstrates nasogastric tube wi thin the body of the stomach. A surgical drain is in place as well as skin blayne. Optiray was then injected through the nasogastric tube. There is opacification of the stomach, duodenum and proximal j ejunum. No contrast extravasation is identified. Gastric emptying was slightly delayed. IMPRESSION: 1. No contrast extravasation to suggest leak. 2. Slight delay in gastric emptying. ACT 112: Negative or not required by law. Electronically signed by: Km Carey M.D. 01/25/2021 8:46 AM
[2021-01-25] MEDS: UMECLIDINIUM BROMIDE 62.5MCG/BLISTER 7 PUFFS/INHALER INH SCH (09:40)
[2021-01-25] MEDS: PANTOprazole 40 MG in SYRINGE 0 ML IV SCH ×2 (09:41→20:05)
[2021-01-25] MEDS: NICOTINE 14 MG/24 HR PATCH TD SCH (09:41)
[2021-01-25] MEDS: FOLIC ACID 1 MG in SYRINGE 9.8 ML IV SCH (09:41)
[2021-01-25] MEDS: THIAMINE HCL 100 MG in SYRINGE 9 ML IV SCH (09:41)
[2021-01-25 13:09] LABS: Partial Thromboplastin Ratio 1.4; Partial Thromboplastin Time 36.8 Seconds (21.0-31.0)
[2021-01-25] MEDS ORDERED: HEPARIN IV BOLUS 2,000 UNITS in SYRINGE 0 ML IV ONE (14:40)
[2021-01-25] MEDS: HEPARIN SODIUM/DEXTROSE 25,000 UNITS/500 ML BAG IV SCH (15:49)
--- NOTE | 2021-01-25 17:14 | Hospitalist Progress Note ---
Date of Service January 25, 2021 Assessment & Plan (1) Pneumoperitoneum: Likely from increased use of Aleve due to foot ulceration. patient taken to the OR in the afternoon 01/22/2021. Doing well postop, management predominantly by surgery. Ongoing PPI. NG tube. Appears to be showing improvement (2) Peripheral artery disease: Significant arterial disease, appears likely a candidate for revascularization. Fortunately, we may be able to proceed with vascular intervention in the near future. Continue heparin drip until then. continue wound care. (3) Right foot ulcer: On antibiotics for her peritonitis, clinically I am not sure that she truly needs them for her foot, but obviously this will cover any foot infection she might have, ongoing local wound care, revascularization as well (4) Pulmonary edema: Improved. Continue to follow. Repeat diuresis if needed. (5) Tobacco abuse: Recommend cessation, will need to discuss this with her further as she recovers (6) DVT prophylaxis: Currently anticoagulated as it relates to her peripheral vascular disease (7) Discharge planning issues: Ongoing ICU care, multidisciplinary management for now. Eventually PT/OT and work on dispo planning, but right now she is still quite ill Admission and Anticipated Discharge Date Admission Date: January 22, 2021 Subjective No new problems noted Physical Exam Physical Exam: Resting comfortably no distress. Breathing unlabored on nasal cannula no accessory muscles. Results & Data Results & Data ([facility]) Vital Signs (Past 12 Hours) Vital Signs Temp Pulse Resp BP Pulse Ox 01/25/21 17:06 87 175/89 H 01/25/21 16:00 97.7 F 70 14 94 01/25/21 15:53 76 12 173/72 H 94 01/25/21 14:54 77 12 161/66 H 95 01/25/21 14:27 87 20 93 01/25/21 14:26 80 20 148/85 H 93 01/25/21 14:00 72 14 92 01/25/21 12:18 98.2 F 81 23 01/25/21 11:53 82 16 161/76 H 95 01/25/21 11:28 82 136/63 01/25/21 10:55 81 18 91 01/25/21 10:54 80 13 136/63 91 01/25/21 10:00 79 12 91 01/25/21 09:36 89 18 174/83 H 94 01/25/21 08:00 90 20 93 01/25/21 07:49 91 H 20 181/89 H 94 01/25/21 05:55 73 15 141/62 H 85 L 01/25/21 05:37 76 154/87 H PG Care Time/CCT Total # of Minutes Spent Total Time Spent with Patient: Total time spent is greater than 50% in coordination of care (as documented) at patient's floor/unit and/or counseling patient: Coding Level of Care Code 31397 Subseq Hosp Care Lvl 1 Diagnoses Pneumoperitoneum K66.8 Peripheral artery disease I73.9 Right foot ulcer L97.519 Pulmonary edema J81.1 Tobacco abuse Z72.0 DVT prophylaxis Z29.9 Discharge planning issues Z02.9
[2021-01-25 21:35] LABS: Partial Thromboplastin Ratio 1.9
--- NOTE | 2021-01-25 23:39 | Vascular Medicine ProgressNote ---
Date of Service January 25, 2021 Assessment & Plan (1) Peripheral artery disease: 2. Right lower extremity ulcer 3. Perforated duodenal ulcer post surgical repair 4. Volume overload 5. COPD 6. Hypertension 7. Tobacco abuse Respiratory distress improved post diuresis. Renal function stable RLE perfusion/ulceration unchanged. If stable from a surgical standpoint and OK for antiplatelet therapy plan on RLE angiogram/intervention Sunday afternoon. Admission and Anticipated Discharge Date Admission Date: January 22, 2021 Subjective Breathing comfortably. NG removed. Tolerating sips. Abd pain controlled. Minimal RLE pain. No other new complaints. Review of Systems Review of Systems: All systems reviewed & are unremarkable except as noted in HPI & below Physical Exam Physical Exam: General: Thin, no acute distress Eyes: Sclerae anicteric HENT: NC in place Lungs: Few scattered wheezes Cardiac: Tachy regular, no murmurs Abdomen: Soft, nondistended Neuro: Nonfocal Psych: Alert orient x3, normal affect and mood Extremities/Vascular: -- 2+ radial bilaterally --RT foot dressed Results & Data ([facility]) Vital Signs (Past 12 Hours) Vital Signs Temp Pulse Resp BP Pulse Ox 01/25/21 23:29 72 01/25/21 23:19 85 197/99 H 01/25/21 22:00 68 94 01/25/21 20:54 80 13 176/74 H 90 01/25/21 20:00 98.6 F 78 16 92 01/25/21 19:53 77 18 161/70 H 91 01/25/21 18:53 84 19 179/78 H 91 01/25/21 18:00 79 17 93 01/25/21 17:53 78 17 177/81 H 92 01/25/21 17:06 87 175/89 H 01/25/21 17:04 86 18 175/89 H 92 01/25/21 16:00 97.7 F 70 14 94 01/25/21 15:53 76 12 173/72 H 94 01/25/21 14:54 77 12 161/66 H 95 01/25/21 14:27 87 20 93 01/25/21 14:26 80 20 148/85 H 93 01/25/21 14:00 72 14 92 01/25/21 12:18 98.2 F 81 23 01/25/21 11:53 82 16 161/76 H 95 PG Care Time/CCT Total # of Minutes Spent Total Time Spent with Patient: Total time spent is greater than 50% in coordination of care (as documented) at patient's floor/unit and/or counseling patient: Coding Level of Care Code 81448 Subseq Hosp Care Lvl 2 Diagnoses Peripheral artery disease I73.9
[2021-01-26] MEDS: HYDROmorphone INJ 1 MG/ML SYRINGE IV PRN ×3 (00:30→19:32)
[2021-01-26] MEDS: PIPERACILLIN/TAZOBACTAM 3.375 GM in DEXTROSE 5% 100 ML IV SCH ×3 (01:35→17:50)
[2021-01-26] MEDS: HEPARIN SODIUM/DEXTROSE 25,000 UNITS/500 ML BAG IV SCH (03:52)
[2021-01-26 04:50] LABS: Basophils # (auto) 0.01 K/uL (0-0.2); Basophils % (auto) 0.1 %; Eosinophils # (auto) 0.05 K/uL (0-0.5); Eosinophils % (auto) 0.6 %; Hematocrit (blood only) 41.6 % (37-47); Immature Granulocytes # (auto) 0.02 K/uL (0.00-0.02); Immature Granulocytes % (auto) 0.2 %; Lymphocytes # (auto) 0.83 K/uL (1.2-3.4); Lymphocytes % (auto) 9.5 %; Mean Corpuscular Hemoglobin 36.4 pg (25-34); Mean Corpuscular Hgb Conc 36.1 g/dL (32-36); Mean Platelet Volume 9.1 fL (7.4-10.4); Monocytes # (auto) 0.95 K/uL (0.11-0.59); Monocytes % (auto) 10.9 %; Neutrophils # (auto) 6.87 K/uL (1.4-6.5); Neutrophils % (auto) 78.7 %; Platelet Count 216 K/uL (130-400); RDW Coefficient of Variation 12.8 % (11.5-14.5); RDW Standard Deviation 47.7 fL (36.4-46.3); Red Blood Count 4.12 M/uL (4.2-5.4); White Blood Count 8.73 K/uL (4.8-10.8)
[2021-01-26 05:09] LABS: Albumin Level 2.5 gm/dl (3.4-5.0); BUN Creatinine Ratio 30.4 (10-20); Calcium 8.5 mg/dl (8.5-10.1); Creatinine Clr Calc Pharmacy 78.1 ml/min; Est GFR (Non-African American) 99.2; Magnesium 1.9 mg/dl (1.8-2.4); Potassium 2.9 mmol/L (3.5-5.1)
[2021-01-26 05:12] LABS: Partial Thromboplastin Ratio 1.8
[2021-01-26 05:12] LABS: Albumin Globulin Ratio 0.7 (0.9-2); Bilirubin,Total 0.5 mg/dl (0.2-1); Globulin 3.7 gm/dl (2.5-4.0); Total Protein 6.2 gm/dl (6.4-8.2)
[2021-01-26 05:16] LABS: Partial Thromboplastin Time 47.8 Seconds (21.0-31.0)
[2021-01-26] MEDS: METOPROLOL TARTRATE 1 MG/ML VIAL IV SCH ×3 (06:00→17:49)
[2021-01-26] MEDS: POTASSIUM CHLORIDE / WTR 10 MEQ/100 ML PLCT IV SCH ×6 (06:00→11:31)
--- NOTE | 2021-01-26 06:37 | Surgery Progress Note ---
Date of Service January 26, 2021 Assessment & Plan (1) H/O exploratory laparotomy: Patient with pulmonary secretions She had a bowel movement Her drains are basically serous-she did grow some yeast from the initial culture but not enough to identify Not uncommon with gastric perforation For vascular intervention today May have liquids post procedure-we will advance diet over the next 2 to 3 days Continue IV antibiotics Admission and Anticipated Discharge Date Admission Date: January 22, 2021 Results & Data ([facility]) Vital Signs (Past 12 Hours) Vital Signs Temp Pulse Resp BP Pulse Ox 01/26/21 06:00 89 197/83 H 01/26/21 04:00 36.8 C 94 H 21 135/65 95 01/26/21 02:00 80 15 96 01/26/21 01:06 63 130/63 95 01/26/21 00:00 71 12 93 01/25/21 23:29 72 01/25/21 23:19 85 197/99 H 01/25/21 23:14 36.8 C 85 13 191/82 H 96 01/25/21 23:06 93 H 14 217/99 H 97 01/25/21 22:00 68 94 01/25/21 20:54 80 13 176/74 H 90 01/25/21 20:00 37.0 C 78 16 92 01/25/21 19:53 77 18 161/70 H 91 01/25/21 18:53 84 19 179/78 H 91 PG Care Time/CCT Total # of Minutes Spent Total Time Spent with Patient: Total time spent is greater than 50% in coordination of care (as documented) at patient's floor/unit and/or counseling patient: Coding Level of Care Code None Diagnoses H/O exploratory laparotomy Z98.890
[2021-01-26] MEDS: PANTOprazole 40 MG in SYRINGE 0 ML IV SCH ×2 (08:30→19:33)
[2021-01-26] MEDS: THIAMINE HCL 100 MG in SYRINGE 9 ML IV SCH (08:31)
[2021-01-26] MEDS: FOLIC ACID 1 MG in SYRINGE 9.8 ML IV SCH (08:31)
[2021-01-26] MEDS: UMECLIDINIUM BROMIDE 62.5MCG/BLISTER 7 PUFFS/INHALER INH SCH (08:31)
[2021-01-26] MEDS: NICOTINE 14 MG/24 HR PATCH TD SCH (08:33)
[2021-01-26] MEDS: HYDROmorphone INJ 0.5 MG/0.5 ML SYR IV PRN (08:54)
[2021-01-26] MEDS: hydrALAZINE HCL 20 MG/ML VIAL IV PRN ×2 (08:54→19:32)
--- NOTE | 2021-01-26 09:21 | Vascular Medicine ProgressNote ---
Date of Service January 26, 2021 Assessment & Plan (1) Peripheral artery disease: 2. Right lower extremity ulcer 3. Perforated duodenal ulcer post surgical repair 4. Volume overload 5. COPD 6. Hypertension 7. Tobacco abuse 8. Hypokalemia Respiratory status, abdomen, renal function stable. Electrolytes being repleted. Plan to proceed with RLE angiogram possible intervention this afternoon. Admission and Anticipated Discharge Date Admission Date: January 22, 2021 Subjective Breathing comfortably. Having BMs. Feels abd bloated but no pain. Minimal RLE pain with ambulation. Review of Systems Review of Systems: All systems reviewed & are unremarkable except as noted in HPI & below Physical Exam Physical Exam: General: Thin, no acute distress Eyes: Sclerae anicteric HENT: NC in place Lungs: Few scattered wheezes Cardiac: Tachy regular, no murmurs Abdomen: Soft, nondistended Neuro: Nonfocal Psych: Alert orient x3, normal affect and mood Extremities/Vascular: -- 2+ radial bilaterally --RT foot dressed Results & Data ([facility]) Vital Signs (Past 12 Hours) Vital Signs Temp Pulse Resp BP Pulse Ox 01/26/21 08:47 98.1 F 85 22 178/108 H 93 01/26/21 07:06 69 18 186/79 H 98 01/26/21 06:00 89 197/83 H 01/26/21 05:06 78 12 197/83 H 95 01/26/21 04:00 98.2 F 94 H 21 135/65 95 01/26/21 02:00 80 15 96 01/26/21 01:06 63 130/63 95 01/26/21 00:00 71 12 93 01/25/21 23:29 72 01/25/21 23:19 85 197/99 H 01/25/21 23:14 98.2 F 85 13 191/82 H 96 01/25/21 23:06 93 H 14 217/99 H 97 01/25/21 22:00 68 94 PG Care Time/CCT Total # of Minutes Spent Total Time Spent with Patient: Total time spent is greater than 50% in coordination of care (as documented) at patient's floor/unit and/or counseling patient: Coding Level of Care Code 61572 Subseq Hosp Care Lvl 2 Diagnoses Peripheral artery disease I73.9
--- NOTE | 2021-01-26 16:48 | Hospitalist Progress Note ---
Date of Service January 26, 2021 Assessment & Plan (1) Pneumoperitoneum: Likely from increased use of Aleve due to foot ulceration. patient taken to the OR in the afternoon 01/22/2021. Doing well postop, management predominantly by surgery. Ongoing PPI. showing good improvement (2) Peripheral artery disease: Significant arterial disease, appears likely a candidate for revascularization. Likely need procedure this afternoon (3) Right foot ulcer: On antibiotics for her peritonitis, clinically I am not sure that she truly needs them for her foot, but obviously this will cover any foot infection she might have, definitely needs local wound care, revascularization as well (4) Pulmonary edema: Improved. Continue to follow. Repeat diuresis if needed. Suspect rhonchorous sounds are likely largely her baseline. (5) Tobacco abuse: She notes she is strongly considering quitting smoking, I heavily encouraged this (6) DVT prophylaxis: Currently anticoagulated as it relates to her peripheral vascular disease (7) Discharge planning issues: Ongoing multidisciplinary management, after revascularization, she was starting to look like she could be a reasonable candidate to start PT/OT and work towards disposition options Admission and Anticipated Discharge Date Admission Date: January 22, 2021 Subjective Overall feeling okay, stomach feels bloated, had some bowel movements. Breathing overall doing better, for intervention on her foot later today Review of Systems Review of Systems: All systems reviewed & are unremarkable except as noted in HPI & below Physical Exam Physical Exam: vitals noted nad heent nc at mmm breathing unlabored no accessory muscles lungs overall coarse though scattered rhonchorous sounds nothing focal no rales or wheezes. foot ongoing ulcer no tracking erythema. Results & Data Results & Data ([facility]) Vital Signs (Past 12 Hours) Vital Signs Temp Pulse Pulse Resp BP BP Pulse Ox 01/26/21 16:03 99.0 F 77 12 184/92 H 94 01/26/21 16:00 81 01/26/21 11:42 98.4 F 71 18 177/83 H 96 01/26/21 11:34 81 177/83 H 01/26/21 10:04 76 20 179/77 H 96 01/26/21 09:07 77 20 152/97 H 93 01/26/21 08:47 98.1 F 85 22 178/108 H 93 01/26/21 07:06 69 18 186/79 H 98 01/26/21 06:00 89 197/83 H 01/26/21 05:06 78 12 197/83 H 95 PG Care Time/CCT Total # of Minutes Spent Total Time Spent with Patient: Total time spent is greater than 50% in coordination of care (as documented) at patient's floor/unit and/or counseling patient: Coding Level of Care Code 29480 Subseq Hosp Care Lvl 3 Diagnoses Pneumoperitoneum K66.8 Peripheral artery disease I73.9 Right foot ulcer L97.519 Pulmonary edema J81.1 Tobacco abuse Z72.0 DVT prophylaxis Z29.9 Discharge planning issues Z02.9
[2021-01-27] MEDS: HYDROmorphone INJ 1 MG/ML SYRINGE IV PRN ×2 (00:23→05:33)
[2021-01-27] MEDS: METOPROLOL TARTRATE 1 MG/ML VIAL IV SCH ×4 (00:24→16:55)
[2021-01-27] MEDS: PIPERACILLIN/TAZOBACTAM 3.375 GM in DEXTROSE 5% 100 ML IV SCH ×3 (02:46→16:55)
[2021-01-27] MEDS: hydrALAZINE HCL 20 MG/ML VIAL IV PRN ×2 (05:10→14:34)
[2021-01-27] MEDS: NICOTINE 14 MG/24 HR PATCH TD SCH (08:07)
[2021-01-27] MEDS: THIAMINE HCL 100 MG in SYRINGE 9 ML IV SCH (08:08)
[2021-01-27] MEDS: FOLIC ACID 1 MG in SYRINGE 9.8 ML IV SCH (08:08)
[2021-01-27] MEDS: UMECLIDINIUM BROMIDE 62.5MCG/BLISTER 7 PUFFS/INHALER INH SCH (08:08)
[2021-01-27] MEDS: PANTOprazole 40 MG in SYRINGE 0 ML IV SCH ×2 (08:08→22:26)
--- NOTE | 2021-01-27 08:20 | Surgery Progress Note ---
Date of Service January 27, 2021 Assessment & Plan (1) H/O exploratory laparotomy: POD# 5 repair of perforated duodenal ulcer Patient is feeling fairly well from an abdominal standpoint; having + bowel function incisions c/d/i; YOHAN x2 serosang patient ordered for full liquid diet for today continue iv abx Planning on vascular intervention tomorrow with Dr. Arun Craig-patient growing Radha in her peritoneal fluid which was cultured Not unexpected for perforated ulcer-have discussed with the pharmacy and will begin Diflucan Admission and Anticipated Discharge Date Admission Date: January 22, 2021 Subjective Patient states she is feeling well this AM. Tolerating liquid diet. Denies nausea/vomiting. She says her abdominal pain is improving each day. She is passing loose BM's. Still having some R foot pain. Feels like her breathing is getting better. Physical Exam Physical Exam: awake/alert Constitutional: well developed and well nourished; no acute distress Respiratory: + abnormal respiratory effort Gastrointestinal (Abdomen): Inspection/Auscultation: + abdomen distended (mild), + abdominal surgical incision (c/d/i with midline blayne, no signs of infection) and + abdominal surgical drain present (YOHAN drain x2 with serosang output (#1 (5cc), #2 (#130cc))) Percussion/Palpation: abdomen soft Results & Data ([facility]) Vital Signs (Past 12 Hours) Vital Signs Temp Pulse Resp BP Pulse Ox 01/27/21 06:26 86 17 151/72 H 94 01/27/21 05:49 77 17 137/63 94 01/27/21 05:03 36.8 C 99 H 21 211/104 H 95 01/27/21 00:40 36.4 C L 72 9 L 155/69 H 95 01/27/21 00:24 86 161/73 H 01/27/21 00:00 80 01/26/21 23:35 84 18 161/73 H 90 01/26/21 20:46 85 17 139/58 L 92 PG Care Time/CCT Total # of Minutes Spent Total Time Spent with Patient: Total time spent is greater than 50% in coordination of care (as documented) at patient's floor/unit and/or counseling patient: Coding Level of Care Code None Diagnoses H/O exploratory laparotomy Z98.890
[2021-01-27 08:25] LABS: Partial Thromboplastin Ratio 1.8
[2021-01-27 08:32] LABS: Partial Thromboplastin Time 47.6 Seconds (21.0-31.0)
[2021-01-27] MEDS ORDERED: FLUCONAZOLE 100 MG TAB PO ONE (09:00)
[2021-01-27] MEDS: POTASSIUM CHLORIDE / WTR 10 MEQ/100 ML PLCT IV SCH ×4 (09:13→15:28)
[2021-01-27] MEDS: HEPARIN SODIUM/DEXTROSE 25,000 UNITS/500 ML BAG IV SCH (11:38)
[2021-01-27] MEDS: LABETALOL HCL IV 5 MG/ML 20ML IV PRN ×2 (15:04→17:43)
[2021-01-27] MEDS ORDERED: lisinopril 5 MG TAB PO ONE (15:15)
--- NOTE | 2021-01-27 15:17 | Critical Care Progress Note ---
Date of Service January 27, 2021 Assessment & Plan (1) Hypertensive urgency: 65-year-old female with recent gastric perforation and resection currently in the ICU. She has critical limb ischemia and is going to undergo intervention by cardiology tomorrow. She is found to be very hypertensive this afternoon. She was given 10 mg of IV hydralazine and 10 mg of IV labetalol with improvement of blood pressure to 153/77. She is also very hypokalemic with a potassium of 2.9. I am rechecking a BMP, phosphorus and magnesium level. Will replete potassium as needed to maintain potassium levels above 4. I have also placed an order for carvedilol 6.25 mg twice daily. We will also start lisinopril 5 mg daily. Can consider starting spironolactone in the future. She may have hyperaldosteronism. May require work-up from outpatient. CRITICAL CARE TIME - I have personally spent 33 minutes of critical care time in the direct management of this patient. This is a life/limb threatening event. This includes time spent evaluating patient, direct bedside care, chart review, placing orders, interpretation of diagnostic studies, discussion with consultants, patient, and family members, as well as other required patient management activities. This time is exclusive of all separately billable procedures, and teaching time and separate from and in addition to any other critical care service time. (2) Hypokalemia: (3) Gastric perforation: (4) Pneumoperitoneum: (5) Peripheral artery disease: (6) Tobacco abuse: (7) COPD with emphysema: (8) Pulmonary edema: Admission and Anticipated Discharge Date Admission Date: January 22, 2021 Subjective Patient seen and examined this afternoon due to hypertensive urgency. Patient feels anxious, but denies any headache or chest pain. She is currently on 4 L of oxygen saturating 94%. Blood pressure is currently 220/102 after receiving 10 mg of IV hydralazine. Review of Systems 2 Review of Systems: All systems reviewed & are unremarkable except as noted in HPI & below Physical Exam Physical Exam: Constitutional: No acute distress HEENT: EOMI, PERRLA Respiratory system: Decreased lung sounds bilaterally. No significant wheezes. CVS: S1-S2 positive, no murmurs or gallops Abdomen: Soft, nontender, nondistended, decreased bowel sounds, YOHAN drain in place, incision dressed Extremities: +1 dorsalis pedis left side, right-sided dorsalis pedis is very week. Neuro: Awake alert oriented x3 Psych: Normal mood and affect Skin: no rashes, warm and dry Lymphatic: no cervical or axillary lymphadenopathy Results & Data Results & Data ([facility]) Vital Signs (Past 12 Hours) Vital Signs Temp Pulse Pulse Resp BP BP Pulse Ox 01/27/21 14:30 93 H 228/113 H 01/27/21 11:52 90 202/102 H 01/27/21 11:49 16 202/102 H 01/27/21 08:00 86 01/27/21 06:26 86 17 151/72 H 94 01/27/21 05:49 77 17 137/63 94 01/27/21 05:03 98.2 F 99 H 21 211/104 H 95 I reviewed the vital signs, labs and imaging Coding Level of Care Code Critical Care 1st 30-74 mins Diagnoses Hypertensive urgency I16.0 Hypokalemia E87.6 Gastric perforation K25.5 Pneumoperitoneum K66.8 Peripheral artery disease I73.9 Tobacco abuse Z72.0 COPD with emphysema J43.9 Pulmonary edema J81.1 Time Spent (min) 33
[2021-01-27 15:56] LABS: BUN Creatinine Ratio 15.4 (10-20); Calcium 8.7 mg/dl (8.5-10.1); Creatinine Clr Calc Pharmacy 101.2 ml/min; Est GFR (African American) 123.6; Est GFR (Non-African American) 106.6; Phosphorus 2.1 mg/dl (2.5-4.9); Potassium 3.5 mmol/L (3.5-5.1)
[2021-01-27] MEDS ORDERED: carvediloL 6.25 MG TAB PO STA (18:38)
--- NOTE | 2021-01-27 19:22 | Hospitalist Progress Note ---
Date of Service January 27, 2021 Assessment & Plan (1) Pneumoperitoneum: Likely from increased use of Aleve due to foot ulceration. patient taken to the OR in the afternoon 01/22/2021. Doing well postop, management predominantly by surgery. Ongoing PPI. showing good improvement. Anticipate slow advancement of diet. (2) Peripheral artery disease: Significant arterial disease, appears likely a candidate for revascularization. For intervention soon (3) Right foot ulcer: On antibiotics for her peritonitis, clinically I am not sure that she truly needs them for her foot, but obviously this will cover any foot infection she might have, definitely needs local wound care, revascularization as well Foot appears stable (4) Pulmonary edema: Improved. Continue to follow. Repeat diuresis if needed. Suspect rhonchorous sounds are likely largely her baseline. (5) Tobacco abuse: She notes she is strongly considering quitting smoking, I heavily encouraged this (6) DVT prophylaxis: Currently anticoagulated as it relates to her peripheral vascular disease (7) Discharge planning issues: Ongoing multidisciplinary management, after revascularization, she was starting to look like she could be a reasonable candidate to start PT/OT and work towards disposition options Admission and Anticipated Discharge Date Admission Date: January 22, 2021 Subjective Generally feeling okay whenever he is here. Tolerating clears reasonably well. Has a little bit of bloating but no pain. Breathing is feeling better than before. Foot feels about the same. Review of Systems Review of Systems: All systems reviewed & are unremarkable except as noted in HPI & below Physical Exam Physical Exam: General she is awake and alert pleasant no distress. HEENT normocephalic atraumatic mucous membranes are moist. Lungs continue to be coarse rhonchi throughout, but more clear than yesterday, no rales no wheezes good effort no accessory muscle use. Cardio distant. Abdomen soft. Extremities show ongoing dusky rubor right lower extremity ulcer unchanged. Present but delayed cap refill. Results & Data Results & Data ([facility]) Vital Signs (Past 12 Hours) Vital Signs Temp Pulse Pulse Resp BP BP Pulse Ox 01/27/21 16:55 91 H 170/87 H 01/27/21 16:00 86 01/27/21 15:48 98.2 F 88 18 162/96 H 94 01/27/21 15:05 88 220/109 H 01/27/21 14:30 93 H 228/113 H 01/27/21 11:52 90 202/102 H 01/27/21 11:49 16 /102 H 01/27/21 08:00 86 PG Care Time/CCT Total # of Minutes Spent Total Time Spent with Patient: Total time spent is greater than 50% in coordination of care (as documented) at patient's floor/unit and/or counseling patient: Coding Level of Care Code 31230 Subseq Hosp Care Lvl 2 Diagnoses Pneumoperitoneum K66.8 Peripheral artery disease I73.9 Right foot ulcer L97.519 Pulmonary edema J81.1 Tobacco abuse Z72.0 DVT prophylaxis Z29.9 Discharge planning issues Z02.9
[2021-01-27] MEDS: carvediloL 6.25 MG TAB PO SCH (22:26)
[2021-01-27] MEDS: oxyCODONE HCL IR 5 MG TAB (IMMEDIATE RELEASE) PO PRN (22:34)
[2021-01-28] MEDS: METOPROLOL TARTRATE 1 MG/ML VIAL IV SCH ×2 (00:01→06:15)
[2021-01-28] MEDS: HYDROmorphone INJ 0.5 MG/0.5 ML SYR IV PRN (00:53)
[2021-01-28] MEDS: PIPERACILLIN/TAZOBACTAM 3.375 GM in DEXTROSE 5% 100 ML IV SCH ×3 (02:06→18:02)
--- NOTE | 2021-01-28 06:22 | Surgery Progress Note ---
Date of Service January 28, 2021 Assessment & Plan (1) H/O exploratory laparotomy: History of perforated ulcer Doing well and tolerating full liquidswe will advance diet to regular P.o. meds as tolerated We will have nurses remove lower abdominal drain-leave upper drain She did grow out Radha and is on Diflucan Possible revascularization procedure pending Possibly DC Christine tomorrow- Dr. Mcqueen covering over the weekend Admission and Anticipated Discharge Date Admission Date: January 22, 2021 Results & Data ([facility]) Vital Signs (Past 12 Hours) Vital Signs Temp Pulse Pulse Pulse Resp BP BP 01/28/21 06:15 70 180/85 H 01/28/21 05:40 37.0 C 70 18 180/85 H 01/28/21 00:01 72 162/77 H 01/28/21 00:00 72 01/27/21 23:38 36.6 C 72 18 162/77 H 01/27/21 19:46 36.9 C 18 01/27/21 19:39 83 201/83 H Pulse Ox 01/28/21 06:15 01/28/21 05:40 97 01/28/21 00:01 01/28/21 00:00 01/27/21 23:38 96 01/27/21 19:46 92 01/27/21 19:39 PG Care Time/CCT Total # of Minutes Spent Total Time Spent with Patient: Total time spent is greater than 50% in coordination of care (as documented) at patient's floor/unit and/or counseling patient: Coding Level of Care Code None Diagnoses H/O exploratory laparotomy Z98.890
[2021-01-28 06:44] LABS: Hematocrit (blood only) 39.5 % (37-47); Hemoglobin 13.6 g/dL (12.0-16.0); Mean Corpuscular Hemoglobin 34.9 pg (25-34); Mean Corpuscular Hgb Conc 34.4 g/dL (32-36); Mean Corpuscular Volume 101.3 fL (80-100); Mean Platelet Volume 9.2 fL (7.4-10.4); Platelet Count 204 K/uL (130-400); RDW Coefficient of Variation 12.9 % (11.5-14.5); RDW Standard Deviation 47.6 fL (36.4-46.3); White Blood Count 7.23 K/uL (4.8-10.8)
[2021-01-28 07:05] LABS: Partial Thromboplastin Ratio 2.2
[2021-01-28 07:14] LABS: Partial Thromboplastin Time 57.1 Seconds (21.0-31.0)
[2021-01-28 07:15] LABS: BUN Creatinine Ratio 11.6 (10-20); Calcium 8.6 mg/dl (8.5-10.1); Creatinine Clr Calc Pharmacy 94.9 ml/min; Est GFR (Non-African American) 104.4; Magnesium 1.6 mg/dl (1.8-2.4); Potassium 3.2 mmol/L (3.5-5.1)
[2021-01-28] MEDS: hydrALAZINE HCL 20 MG/ML VIAL IV PRN (07:33)
[2021-01-28] MEDS: oxyCODONE HCL IR 5 MG TAB (IMMEDIATE RELEASE) PO PRN (07:36)
--- NOTE | 2021-01-28 07:40 | Hospitalist Progress Note ---
Date of Service January 28, 2021 Assessment & Plan (1) Pneumoperitoneum: Duodenal ulceration and pneumoperitoneum: -Presented to hospital with acutely worsening abdominal pain. -CTAP showed pneumoperitoneum with unclear source of perforation. -General Surgery performed exploratory laparotomy and found perforated duodenal ulcer, now s/p repair on 01/22. -Has been tolerating full liquid diet; will advance to Heart Healthy diet today after vascular intervention. -Has YOHAN drain x1, and surgical site appears clean and without signs of infection. -Currently on Zosyn given perforation/peritonitis, and Diflucan for Candidal growth. -Continue PPI. -D/c King likely tomorrow. -Suspect ulceration is due to increased NSAID use at home to alleviate RLE pain. Peripheral artery disease with RLE nonhealing wounds/ulcerations: -History of chronic non-healing RLE ulcerations for many months. -XR foot shows mild soft tissue swelling surrounding the first MTP joint. No signs of acute fracture, dislocation or osseous erosion. -RLE Duplex scan showed diffuse atherosclerotic vascular disease, with findings suggestive of high grade stenosis vs. occlusion in the area of the right SFA. -Vascular surgery (Dr. Dias) consulted this admission; for bilateral angiography with possible revascularization this afternoon. -Curently on Heparin gtt. -Continue local wound care. On Abx for peritonitis, ulcers do not appear infected. -PT/OT after revascularization. COPD / pulmonary edema: -Rhonchorous sounds noted for several days this admission. -Pulmonary edema noted on XR chest 01/24. -Does not wear oxygen at baseline, but has significant smoking history. -Advised cessation of smoking especially considering LE ulcerations and vascular issues. -Echo this admission with LVEF 65-70%, mild concentric LVH, no regional wall motion abnormalities or valvular pathology. -Incruse started this admission for COPD. Electrolyte abnormalities: -This AM with K 3.2, Phos 2.1, Mg 1.6. -Repleted this AM with 15mmol KPhos IV, 1g Mg IV. -Can also replete with KCl PO this afternoon after revascularization. -Repeat BMP,Mg,Phos in AM. Code Status: FULL CODE FEN: NPO for vascular intervention this afternoon, with Heart Healthy diet after DVT ppx: Heparin gtt Dispo: PCU while on Heparin gtt, for continued monitoring given recent surgery of perforated ulcer. Vascular intervention today (2) Peripheral artery disease: (3) Right foot ulcer: (4) Gastric perforation: (5) COPD with emphysema: Admission and Anticipated Discharge Date Admission Date: January 22, 2021 Supervising Physician Co-Signing Physician Notes I personally examined the patient and verified all finney points of history and exam, discussed case, and agree with decision making with Dr Herrera. Feeling okay overall. Stomach pain improving. N.p.o. for procedure. Breathing doing better. Vitals noted, in general she is awake and alert pleasant no distress. HEENT normocephalic atraumatic mucous membranes moist. Lungs show ongoing rhonchi, better than before, good air entry good effort no accessory muscles. Skin no rashes no pallor or icterus. Perforated ulcer/pneumoperitoneum/peritoneal sepsisimproving. Continue current care. COPD, diastolic CHF with pulmonary edemashowing good slow steady improvement. Continue current care. Uncontrolled hypertensionincrease Coreg and lisinopril, keep as needed labetalol, continue to follow and adjust as needed. Arterial vascular disease with ulcerlocal wound care, for revascularization later today. otherwise as above Subjective No acute events overnight. BP elevated throughout admission, vitals otherwise stable overnight. Patient does not complain of nausea or vomiting this AM, and is feeling hungry. No dizziness or headache, chest pain, SOB on room air. Some mild abdominal pain specifically when she coughs. Review of Systems Review of Systems: All systems reviewed & are unremarkable except as noted in HPI & below Constitutional: no fever, no chills and no malaise Respiratory: no cough and no dyspnea Cardiovascular: no chest pain, no palpitations and no edema Gastrointestinal: + abdominal pain (mild); no constipation and no diarrhea/loose stools Genitourinary: no dysuria and no hematuria Physical Exam Constitutional: well developed and + thin; no acute distress Respiratory: normal respiratory effort; no respiratory distress and no cough Auscultation: + rhonchi (mild, throughout) saturating 95% on room air Cardiovascular: RRR, no murmur, no edema Gastrointestinal (Abdomen): Inspection/Auscultation: normal bowel sounds; abdomen not distended Percussion/Palpation: + abdomen tender (mild, near incision/dressing site) and abdomen soft; no guarding surgical dressing present clean, dry. One upper abdominal YOHAN drain with mild amount of serosanguinous drainage Skin: Dusky RLE; dark thick callouses/ulcerations noted over medial right great toe, as well as over lateral aspect of foot in area of 5th MTP joint. Neurologic: AAOx3, normal speech. PERRLA, EOMI, no nystagmus. Normal visual acuity bilaterally. Bilateral UE, LE, and face without sensory or motor deficits. DTRs normal. II- XII intact bilaterally. No pronator drift. No tremor. No ataxia. Psychiatric: A+Ox3, euthymic affect Results & Data Results & Data ([facility]) Vital Signs (Past 12 Hours) Vital Signs Temp Pulse Pulse Pulse Resp BP BP 01/28/21 07:14 37.2 C 75 18 199/82 H 01/28/21 06:15 70 180/85 H 01/28/21 05:40 37.0 C 70 18 180/85 H 01/28/21 00:01 72 162/77 H 01/28/21 00:00 72 01/27/21 23:38 36.6 C 72 18 162/77 H 01/27/21 19:46 36.9 C 18 Pulse Ox 01/28/21 07:14 95 01/28/21 06:15 01/28/21 05:40 97 01/28/21 00:01 01/28/21 00:00 01/27/21 23:38 96 01/27/21 19:46 92 Resident Activity Tracking Resident Involvement: Resident Care Provided Care Provided: Adult [facility] Medicine
[2021-01-28] MEDS: FOLIC ACID 1 MG in SYRINGE 9.8 ML IV SCH (08:19)
[2021-01-28] MEDS: THIAMINE HCL 100 MG in SYRINGE 9 ML IV SCH (08:19)
[2021-01-28] MEDS: carvediloL 6.25 MG TAB PO SCH (08:19)
[2021-01-28] MEDS: FLUCONAZOLE 100 MG TAB PO SCH (08:20)
[2021-01-28] MEDS: NICOTINE 14 MG/24 HR PATCH TD SCH (08:20)
[2021-01-28] MEDS: PANTOprazole 40 MG in SYRINGE 0 ML IV SCH ×2 (08:20→20:48)
[2021-01-28] MEDS: UMECLIDINIUM BROMIDE 62.5MCG/BLISTER 7 PUFFS/INHALER INH SCH (08:21)
[2021-01-28] MEDS ORDERED: POTASSIUM PHOS 3 MMOL/1 ML INFUSION IV STA (08:24)
[2021-01-28] MEDS ORDERED: MAGNESIUM SULFATE / D5W 1 GM/100 ML BAG IV ONE (08:45)
[2021-01-28] MEDS ORDERED: POTASSIUM PHOSPHATE 15 MMOL in SODIUM CHLORIDE 0.9% 250 ML IV ONE (08:45)
[2021-01-28] MEDS ORDERED: lisinopril 5 MG TAB PO SCH (09:00)
[2021-01-28] MEDS: lisinopril 10 MG TAB PO SCH (09:57)
[2021-01-28] MEDS ORDERED: MAGNESIUM SULFATE / D5W 1 GM/100 ML BAG IV SCH (10:45)
[2021-01-28] MEDS ORDERED: HEPARIN (PORCINE) 1000 UNIT/ML 10 ML (CATH LAB USE ONLY) ONE (13:30)
[2021-01-28] MEDS ORDERED: niCARdipine HCL INJ 2.5 MG/ML 10 ML AMP ONE (13:30)
[2021-01-28] MEDS ORDERED: MIDAZOLAM HCL 5 MG/ML 1 ML VIAL ONE (13:30)
[2021-01-28] MEDS ORDERED: fentaNYL citrate 100 MCG/2 ML VIAL ONE ×2 (13:30→15:13)
[2021-01-28] MEDS ORDERED: NITROGLYCERIN/D5W 100MCG/ML 20ML SYR ONE (13:38)
--- NOTE | 2021-01-28 14:02 | Pre Anesthesia Assessment ---
Date of Service January 28, 2021 Pre Sedation Assessment Vital Signs Temp Pulse Pulse Pulse Resp BP BP 01/28/21 12:21 97.5 F L 66 18 157/70 H 01/28/21 08:41 191/72 H 01/28/21 08:00 74 01/28/21 07:14 99.0 F 75 18 199/82 H 01/28/21 06:15 70 180/85 H 01/28/21 05:40 98.6 F 70 18 180/85 H 01/28/21 00:01 72 162/77 H 01/28/21 00:00 72 01/27/21 23:38 97.9 F 72 18 162/77 H 01/27/21 19:46 98.4 F 18 01/27/21 19:39 83 201/83 H 01/27/21 16:55 91 H 170/87 H 01/27/21 16:00 86 01/27/21 15:48 98.2 F 88 18 162/96 H 01/27/21 15:05 88 220/109 H 01/27/21 14:30 93 H 228/113 H Pulse Ox 01/28/21 12:21 94 01/28/21 08:41 01/28/21 08:00 01/28/21 07:14 95 01/28/21 06:15 01/28/21 05:40 97 01/28/21 00:01 01/28/21 00:00 01/27/21 23:38 96 01/27/21 19:46 92 01/27/21 19:39 01/27/21 16:55 01/27/21 16:00 01/27/21 15:48 94 01/27/21 15:05 01/27/21 14:30 Cardiovascular RRR, no murmur, no edema Respiratory normal respiratory effort, lungs clear to auscultation Pre-Sedation Airway Assessment Smoking Status: Current every day smoker Hx Sleep Apnea: No Hx Difficult Intubation: No Short, Thick Neck: No Thyromental Distance: < 3.5 Finger Breadths Oral Cavity: + WNL Mallampati Class: II ASA: ASA3 Procedure Planning Contraindications for Sedation: none Current Medications Reviewed: Yes Notes The planned sedation has been discussed with the patient. Informed Consent was obtained. I have identified the patient, determined the appropriateness of sedation and have assessed the patient immediately prior to the procedure. All medicine(s) and interventions are by my order.
[2021-01-28] MEDS ORDERED: hydrALAZINE HCL 20 MG/ML VIAL ONE (14:14)
[2021-01-28] MEDS ORDERED: CLOPIDOGREL BISULFATE 300 MG TAB ONE (15:48)
--- NOTE | 2021-01-28 16:15 | Post Anesthesia Assessment ---
Date of Service January 28, 2021 Post Sedation Assessment Vital Signs Temp Pulse Pulse Pulse Resp BP BP 01/28/21 16:00 81 20 182/101 H 01/28/21 12:21 97.5 F L 66 18 157/70 H 01/28/21 08:41 191/72 H 01/28/21 08:00 74 01/28/21 07:14 99.0 F 75 18 199/82 H 01/28/21 06:15 70 180/85 H 01/28/21 05:40 98.6 F 70 18 180/85 H 01/28/21 00:01 72 162/77 H 01/28/21 00:00 72 01/27/21 23:38 97.9 F 72 18 162/77 H 01/27/21 19:46 98.4 F 18 01/27/21 19:39 83 201/83 H 01/27/21 16:55 91 H 170/87 H Pulse Ox 01/28/21 16:00 93 01/28/21 12:21 94 01/28/21 08:41 01/28/21 08:00 01/28/21 07:14 95 01/28/21 06:15 01/28/21 05:40 97 01/28/21 00:01 01/28/21 00:00 01/27/21 23:38 96 01/27/21 19:46 92 01/27/21 19:39 01/27/21 16:55 Recovery Score Activity: Moves 4 extremities Respiration: Deep Breath/Cough Circulation: +/-20% PreAnes Value Consciousness: Fully Awake Oxygen Saturation: > 92% On Room Air Post Anesthesia Score: 10 Discharge Sedation Level of Care: Fast Track Phase II Post Sedation Plan On clinical assessment, the patient appears to have tolerated the sedation without complications. Patient is recovering as anticipated. Patient will continue to be monitored by nursing and may be discharged when sedation discharge criteria are met per below protocol. Upon Completions of procedure up to 15 minutes continue every 5 minute vital signs and the P.A.R. score; then discharge to a Phase I or Fast Track to Phase II per the following guidelines: * Discharge Patient to appropriate Phase II area if PAR is 8 or greater or return to pre- procedure baseline. The post - procedure orders will be as directed. * If PAR score is less than 8 or not return to pre-procedure baseline then patient will follow Phase I monitoring till PAR is reached for Phase II. The Phase I may be done in procedure room or may call to secure a Phase I area. * If naloxone or flumazenil are used for reversal, hold in Phase I for continued monitoring from when last reversal dose was given for a minimum of 60 minutes or longer pending the nurse and/or physician discretion of patient condition before discharge to Phase II. Please call the Sedation Physician to re-evaluate and complete post-note for discharge to Phase II area. Do NOT discharge from procedure sedation or Phase 1 until post- sedation evaluation note is complete by procedure /sedation MD Sedation Discharge Instructions to be given to the patient at discharge to home.
--- NOTE | 2021-01-28 16:35 | Endovascular Procedure Note ---
PG Endovascular Procedure Rpt Pre & Post Diagnosis Peripheral arterial disease I identified the patient and participated in the time-out.: Yes Procedure Operation Date: 01/28/21 12:00 Actual Procedures s Ultrasound Vascular Access - Andrew Dias MD s Placement Art Occlusive Device - Andrew Dias MD s Femoral Popliteal Balloon - Andrew Dias MD s Iliac Stent Balloon - Andrew Dias MD p Angio Extremity Unilateral - Andrew Dias MD Surgeon Jony Dias MD Newspaper Vendor Sven Estimated Blood Loss 20 Findings Consistent with Post-Op Diagnosis Aortadiffuse mild disease, ectatic at bifurcation Right lower extremity Common iliac calcified, 20 to 30% proximal (minimal pullback gradient) External iliac mid to distal segment calcified with 80 to 90% stenosis (pullback gradient 30 mmHg). PHYSICAL INSTRUCTOR, profundamild diffuse disease SFAmid segment occlusion (10 cm), distal vessel fills sluggishly via collaterals' Poplitealno significant disease ATAsevere diffuse disease prior to mid segment occlusion. Small DPA partially fills via collaterals. PTAwidely patent to the ankle, short occlusion in the foot but fills medial, lateral plantar arteries via collaterals. Peroneal occluded proximally, partially fills via collaterals distally. Left lower extremity Common iliacheavily calcified, 70% proximal stenosis External iliaccalcified, mild disease proximally, 60% heavily calcified distal external iliac disease extending into PHYSICAL INSTRUCTOR CFAstable for device closure Proximal SFA, profundapatent without significant disease Anesthesia Type RN Sedation Radiation Exposure (mGv) Radiation (mGy): 176 Contrast Contrast: 90 Complications none Disposition Accompanied Patient To Recovery: Yes Disposition: Roofing Laborer Holding Indications Critical limb ischemia Description of Procedure Left common femoral access obtained under ultrasound guidance, short 5Fr sheath placed Aortogram, proximal right lower extremity angiogram performed with RIM catheter Third order selective angiography of right lower extremity with quick cross catheter placed into SFA 6 Fr 65 cm destination sheath placed from left PHYSICAL INSTRUCTOR to right SFA Mid SFA occlusion crossed with glide advantage wire and quick cross catheter Mid to distal SFA occlusion dilated with 4.0 balloon Proximal to distal SFA treated with 5.0 x 220 mm Lutonix drug-eluting balloon Right mid to distal external iliac dilated with 6.0 balloon External iliac stented with a 7.0 x 60 mm self-expanding stent Stent postdilated with 7.0 balloon Post procedure good angiographic result, external iliac stent well expanded, SFA with no evidence of dissection and minimal residual stenosis, brisk single- vessel runoff to the foot via RADIO COMMUNICATION COORDINATOR. Contrast used: 90 Moderate sedation: [id number] Access closure: Star close Summary: 1. Right lower [id number]% common iliac, 80% external iliac, 100% mid SFA occlusion. Occluded mid MICKIE, proximal peroneal. RADIO COMMUNICATION COORDINATOR widely patent to the foot. 2. Left lower [id number]% ostial common iliac, 60% diffuse external iliac extending into proximal PHYSICAL INSTRUCTOR. Proximal SFA, profunda widely patent. 3. Successful stenting of right external iliac artery stenosis with 7 x 60 mm self-expanding stent. 4. Successful angioplasty of right SFA occlusion with drug-eluting balloon (5 x 220 mm Lutonix). Final result with brisk single-vessel runoff to right foot via widely patent posterior tibial artery. Recommendations: Loaded with clopidogrel 300 mg in Roofing Laborer. In the setting of duodenal ulcer plan to treat with single antiplatelet therapy with clopidogrel for ideally at least a month. Can discontinue heparin infusion. Follow-up toe pressures, noninvasive vascular testing as an outpatient in 2 weeks. If wound healing limited, reduced toe pressures in the future could consider attempt at intervention to anterior tibial artery. I attest to the content of the Intraoperative Record and any orders documented therein. Any exceptions are noted below. Vascular Charges Angiography/Venography Procedure 1: Angiography/Venography charges: [id number] Aortography, abd + b/l iliofem LE, catheter, radiological S&I Procedure 2: Angiography/Venography charges: [id number] Initial 3rd order or selective abd, pelvic, or LE branch Lower Extremity Interventions Procedure 1: Lower Extremity Intervention charges: [id number] Stent placement(s), iliac artery, unilateral, initial vessel; Procedure 2: Lower Extremity Intervention charges: [id number] Angioplasty, femoral, popliteal artery(s), unilateral Additional Services Procedure 1: Additional Services Charges: 86145 Ultrasound guidance - vascular access Procedure 2: Additional Services Charges: 95699 Moderate sedation initial 15 min Procedure 3: Additional Services Charges: 42539 Moderate sedation, each additional 15 min
[2021-01-28] MEDS ORDERED: SODIUM CHLORIDE 0.9% 1000ML 1,000 ML IV SCH (17:00)
--- NOTE | 2021-01-28 17:02 | Vascular Medicine ProgressNote ---
Date of Service January 28, 2021 Assessment & Plan (1) Peripheral artery disease: 2. Right lower extremity ulcer 3. Perforated duodenal ulcer post surgical repair 4. Hypertension 5. COPD 6. Hypokalemia 7. Tobacco abuse Patient tolerated procedure well without apparent complications. Final result with direct single vessel run-off to foot via CUSTOMS ENTRY WRITER. CUSTOMS ENTRY WRITER pulse palpable on exam. Remains hypertensive -- For DOWEL STICKER OPERATOR hemostasis recommend keeping SBP < 160 this evening with PRN IV hydralazine/labetalol. -- Continue antiplatelet therapy with clopidogrel -- heparin discontinued -- start statin prior to discharge -- continued wound care -- additional non-invasive vascular testing as an outpatient. Admission and Anticipated Discharge Date Admission Date: January 22, 2021 Subjective Post endovascular intervention to external iliac, SFA this afternoon. Review of Systems Review of Systems: All systems reviewed & are unremarkable except as noted in HPI & below Physical Exam Physical Exam: General: Thin, no acute distress Eyes: Sclerae anicteric HENT: NC in place Lungs: Few scattered wheezes Cardiac: regular, no murmurs Abdomen: Soft, nondistended Neuro: Nonfocal Psych: sleep orient x3, normal affect and mood Extremities/Vascular: -- LT DOWEL STICKER OPERATOR soft --RT CUSTOMS ENTRY WRITER pulse palpable -- RT forefoot red, 2 cm ulcer over medial aspect of foot at MTP joint. Sluggish cap refill. Results & Data ([facility]) Vital Signs (Past 12 Hours) Vital Signs Temp Pulse Pulse Pulse Resp BP BP 01/28/21 16:30 97.7 F 86 18 193/87 H 01/28/21 16:15 78 20 185/82 H 01/28/21 16:00 81 20 182/101 H 01/28/21 12:21 97.5 F L 66 18 157/70 H 01/28/21 08:41 191/72 H 01/28/21 08:00 74 01/28/21 07:14 99.0 F 75 18 199/82 H 01/28/21 06:15 70 180/85 H 01/28/21 05:40 98.6 F 70 18 180/85 H Pulse Ox 01/28/21 16:30 93 01/28/21 16:15 97 01/28/21 16:00 93 01/28/21 12:21 94 01/28/21 08:41 01/28/21 08:00 01/28/21 07:14 95 01/28/21 06:15 01/28/21 05:40 97 PG Care Time/CCT Total # of Minutes Spent Total Time Spent with Patient: Total time spent is greater than 50% in coordination of care (as documented) at patient's floor/unit and/or counseling patient: Coding Level of Care Code 19341 Subseq Hosp Care Lvl 3 Diagnoses Peripheral artery disease I73.9
[2021-01-28] MEDS: LABETALOL HCL IV 5 MG/ML 20ML IV PRN (17:20)
[2021-01-28] MEDS: POTASSIUM CHLORIDE CRTAB 20 MEQ TABCR PO SCH ×2 (17:28→20:47)
[2021-01-28] MEDS: HEPARIN SODIUM/DEXTROSE 25,000 UNITS/500 ML BAG IV SCH (17:48)
--- NOTE | 2021-01-28 19:29 | Billing Data ---
Date of Service January 28, 2021 Coding Level of Care Code 20463 Subseq Hosp Care Lvl 3
[2021-01-28] MEDS: carvediloL 12.5 MG TAB PO SCH (20:47)
[2021-01-29] MEDS: PIPERACILLIN/TAZOBACTAM 3.375 GM in DEXTROSE 5% 100 ML IV SCH (02:04)
[2021-01-29] MEDS: oxyCODONE HCL IR 5 MG TAB (IMMEDIATE RELEASE) PO PRN ×2 (02:07→18:41)
[2021-01-29] MEDS: HYDROmorphone INJ 0.5 MG/0.5 ML SYR IV PRN (03:43)
[2021-01-29] MEDS: hydrALAZINE HCL 20 MG/ML VIAL IV PRN ×2 (03:43→17:52)
[2021-01-29] MEDS: LABETALOL HCL IV 5 MG/ML 20ML IV PRN (04:36)
--- NOTE | 2021-01-29 07:35 | Hospitalist Progress Note ---
Date of Service January 29, 2021 Assessment & Plan (1) Pneumoperitoneum: #Duodenal ulceration and pneumoperitoneum: Presented to hospital with acutely worsening abdominal pain. CTAP showed pneumoperitoneum with unclear source of perforation. Suspect ulceration is due to increased NSAID use at home to alleviate RLE pain. General Surgery performed exploratory laparotomy and found perforated duodenal ulcer, now s/p repair on 01/22. Has been tolerating full liquid diet; will advance to Heart Healthy diet today after vascular intervention. -Has YOHAN drain x1, and surgical site appears clean and without signs of infection. -Surgery consulted -DC Zosyn, start Clinda for now continue Diflucan -Continue PPI. -D/c King #Peripheral artery disease with RLE nonhealing wounds/ulcerations: History of chronic non-healing RLE ulcerations for many months.XR foot shows mild soft tissue swelling surrounding the first MTP joint. No signs of acute fracture, dislocation or osseous erosion. RLE Duplex scan showed diffuse atherosclerotic vascular disease, with findings suggestive of high grade stenosis vs. occlusion in the area of the right SFA. Vascular surgery (Dr. Dias) consulted this admission; status post bilateral lower extremity angiography on 01/28 with stenting. Right lower extremity demonstrated 30%, iliac, 80% external iliac, 100% mid SFA occlusion, left lower extremity demonstrating 70% ostial common iliac, 60% diffuse external iliac extending into the proximal OPERATIONS OFFICER. Right external iliac arteries was stented resulting in brisk single-vessel runoff to the right foot. -Status post angiography and revascularization routine postoperative care per vascular following recs -Continue clopidogrel -Outpatient noninvasive vascular testing -Start statin prior to discharge -Continue local wound care. On Abx for peritonitis, ulcers do not appear infected. -PT/OT after revascularization. COPD / pulmonary edema: Rhonchorous sounds noted for several days this admission, Pulmonary edema noted on XR chest 01/24. Echo this admission with LVEF 65-70%, mild concentric LVH, no regional wall motion abnormalities or valvular pathology.Does not wear oxygen at baseline, but has significant smoking history. -Advised cessation of smoking especially considering LE ulcerations and vascular issues. -Incruse started this admission for COPD. -prn O2 goal 94-96% Electrolyte abnormalities: Repeat BMP,Mg,Phos in AM. -replete as indicated Code Status: FULL CODE FEN: Heart Healthy diet DVT ppx: Lovenox Dispo: Pcu (2) Peripheral artery disease: (3) Right foot ulcer: (4) Gastric perforation: (5) COPD with emphysema: Admission and Anticipated Discharge Date Admission Date: January 22, 2021 Supervising Physician Co-Signing Physician Notes I personally examined the patient and verified all finney points of history and exam, discussed case, and agree with decision making with Dr Herrera. Feeling okay, foot was fairly painful after the procedure but much better now. Walked the hallway some. Eating lunch well. Vitals noted, in general she is awake and alert pleasant no distress. HEENT normocephalic atraumatic mucous membranes moist. Breathing unlabored no accessory muscle use good effort. Skin no rashes no pallor or icterus foot with some rubra ongoing but better overall appearance, and now brisk capillary refill.. Perforated ulcer/pneumoperitoneum/peritoneal sepsisimproving. Continue current care. Tolerating regular diet well COPD, diastolic CHF with pulmonary edemanow appears to be overall stable. Continue to follow. Uncontrolled hypertensioncontinue to titrate Coreg and lisinopril as needed, has labetalol as needed. Arterial vascular disease with ulcerlocal wound care, vascular status appears improved after procedure otherwise as above, stable for medical. Pt/OT eval and treat and start to work towards dispo planning (ie ?home vs rehab) Subjective Patient lying in bed this morning in no acute distress, patient reports significant improvement in her symptoms. She reports initially there was a little bit of pain in her lower extremity, however this spontaneously resolved throughout the evening. At present her pain is well controlled, she states that she wants to spend today resting. She is tolerating her diet, voiding, stooling, no acute distress. All questions answered no acute concerns Physical Exam Physical Exam: General: In no acute distress HEENT: Normocephalic atraumatic Neck: Normal to visual inspection Cardiac: Regular rate and rhythm I did not appreciate significant murmurs rubs or gallops normal S1, normal S2 Skin: Surgical site clean dry and intact, right lower extremity wound clean dry and intact, redness in her lower extremity improving Neuro: Alert and oriented x4 Psych: Calm and cooperative with the interview Results & Data Results & Data ([facility]) Vital Signs (Past 12 Hours) Vital Signs Temp Pulse Pulse Pulse Resp BP Pulse Ox 01/29/21 05:27 92 H 152/69 H 04/03/21 04:30 84 168/63 H 01/29/21 03:38 36.8 C 90 20 198/77 H 96 01/29/21 00:00 79 01/28/21 22:00 36.7 C 75 18 148/71 H 92 01/28/21 21:00 36.7 C 77 18 154/70 H 96 01/28/21 20:00 36.8 C 81 18 144/76 H 94 Laboratory Results 01/29/21 01/29/21 01/28/21 Range/Units 07:55 07:55 15:32 WBC 8.42 (4.8-10.8) K/uL RBC 3.88 L (4.2-5.4) M/uL Hgb 13.8 (12.0-16.0) g/dL Hct 38.7 (37-47) % MCV 99.7 (80-100) fL MCH 35.6 H (25-34) pg MCHC 35.7 (32-36) g/dL RDW Std Deviation 46.8 H (36.4-46.3) fL RDW Coeff of Doette 12.9 (11.5-14.5) % Plt Count 247 (130-400) K/uL MPV 9.2 (7.4-10.4) fL Immature Gran % (Auto) 0.1 % Neut % (Auto) 81.9 % Lymph % (Auto) 10.3 % Gates % (Auto) 4.6 % Eos % (Auto) 2.7 % Baso % (Auto) 0.4 % Neut # (Auto) 6.89 H (1.4-6.5) K/uL Lymph # (Auto) 0.87 L (1.2-3.4) K/uL Gates # (Auto) 0.39 (0.11-0.59) K/uL Eos # (Auto) 0.23 (0-0.5) K/uL Baso # (Auto) 0.03 (0-0.2) K/uL Immature Gran # (Auto) 0.01 (0.00-0.02) K/uL Activ Coag Time Kaolin 274 H (94-140) SECONDS Sodium 133 L (136-145) mmol/L Potassium 3.2 L (3.5-5.1) mmol/L Chloride 101 (98-107) mmol/L Carbon Dioxide 26 (21-32) mmol/L Anion Gap 6.0 (3-11) BUN 6 L (7-18) mg/dl Creatinine 0.53 L (0.6-1.2) mg/dl Est Cr Clr Drug Dosing 77.0 ml/min Est GFR ( Amer) 117.1 Est GFR (Non-Af Amer) 101.0 BUN/Creatinine Ratio 11.1 (10-20) Glucose 103 H (70-99) mg/dl Calcium 8.7 (8.5-10.1) mg/dl Phosphorus 3.3 D (2.5-4.9) mg/dl Magnesium 1.7 L (1.8-2.4) mg/dl Medications Administered Current Inpatient Medications Albuterol (Albut/Ipratrop 3mg/0.5mg Neb 3 Ml Vial) 3 ml NEB Q2H PRN PRN Reason: Shortness Of Breath Or Wheezing Stop: 02/21/21 18:28 Carvedilol (Carvedilol 12.5 Mg Tab) 12.5 mg PO BID [facility] Stop: 02/27/21 20:59 Last Admin: 01/29/21 08:04 Dose: 12.5 mg Documented by: Clopidogrel Bisulfate (Clopidogrel Bisulfate 75 Mg Tab) 75 mg PO QAM [facility] Stop: 02/28/21 08:59 Last Admin: 01/29/21 08:05 Dose: 75 mg Documented by: Diphenhydramine HCl (Diphenhydramine Capsule 25 Mg Cap) 25 mg PO Q6H PRN PRN Reason: Rash Stop: 02/28/21 11:22 Fluconazole (Fluconazole 100 Mg Tab) 300 mg PO DAILY [facility]; Protocol Stop: 02/07/21 08:59 Last Admin: 01/29/21 08:04 Dose: 300 mg Documented by: Hydralazine HCl (Hydralazine Hcl 20 Mg/Ml Vial) 10 mg IV Q4H PRN PRN Reason: SBP above 160 Stop: 02/22/21 20:31 Last Admin: 01/29/21 03:43 Dose: 10 mg Documented by: Hydromorphone HCl (Hydromorphone Inj 0.5 Mg/0.5 Ml Syr) 0.5 mg IV Q3HWA PRN PRN Reason: Moderate Pain Stop: 02/05/21 16:46 Last Admin: 01/29/21 03:43 Dose: 0.5 mg Documented by: Hydromorphone HCl (Hydromorphone Inj 1 Mg/Ml Syringe) 1 mg IV Q3HWA PRN PRN Reason: Severe Pain Stop: 02/05/21 16:46 Last Admin: 01/27/21 05:33 Dose: 1 mg Documented by: Pantoprazole Sodium 40 mg/ (Syringe) 10 mls @ 5 mls/min IV BID ALICIA Stop: 02/21/21 20:59 Last Admin: 01/29/21 08:04 Dose: 5 mls/min Documented by: Promethazine HCl 12.5 mg/ (Sodium Chloride) 50.5 mls @ 204 mls/hr IV Q6H PRN PRN Reason: Nausea And Vomiting Stop: 02/21/21 16:46 Thiamine HCl 100 mg/ Syringe 10 mls @ 2 mls/min IV QAM ALICIA Stop: 02/23/21 08:59 Last Admin: 01/29/21 08:05 Dose: 2 mls/min Documented by: Folic Acid 1 mg/ Syringe 10 mls @ 5 mls/min IV QAM [facility]ICIA Stop: 02/23/21 08:59 Last Admin: 01/29/21 08:03 Dose: 5 mls/min Documented by: Lorazepam (Ativan) 1 mg in 2 mls @ 2 mls/min IV UD PRN; Protocol PRN Reason: EtOH Withdrawl AWSS Score 6,7 Stop: 02/23/21 02:48 Last Admin: 01/24/21 03:08 Dose: 2 mls/min Documented by: Lorazepam (Ativan) 2 mg in 4 mls @ 4 mls/min IV UD PRN; Protocol PRN Reason: EtOH Withdrawl AWSS Score 8,9 Stop: 02/23/21 02:48 Lorazepam (Ativan) 3 mg in 6 mls @ 4 mls/min IV ONCE PRN; Protocol PRN Reason: EtOH Withdrawl AWSS Score >=10 Stop: 02/23/21 02:48 Clindamycin Phosphate 300 mg/ (Dextrose) 52 mls @ 100 mls/hr IV Q8H ALICIA Stop: 02/08/21 11:59 Labetalol HCl (Labetalol Hcl Iv 5 Mg/Ml 20ml) 10 mg IV Q2H PRN PRN Reason: SBP above 160 Stop: 02/22/21 22:23 Last Admin: 01/29/21 04:36 Dose: 10 mg Documented by: Lisinopril (Lisinopril 10 Mg Tab) 10 mg PO QAM [facility] Stop: 02/27/21 09:14 Last Admin: 01/29/21 08:05 Dose: 10 mg Documented by: Miscellaneous (Remove Nicoderm Patch) 1 ea N/A DAILY@0859 [facility] Stop: 02/22/21 08:58 Last Admin: 01/29/21 08:04 Dose: 1 ea Documented by: Nicotine (Nicotine 14 Mg/24 Hr Patch) 14 mg [facility] Stop: 02/22/21 08:59 Last Admin: 01/29/21 08:04 Dose: 14 mg Documented by: Ondansetron HCl (Ondansetron Inj 2 Mg/Ml 2 Ml Vial) 4 mg IV 4XDQ4H PRN PRN Reason: Nausea Stop: 02/21/21 16:46 Oxycodone HCl (Oxycodone Hcl Ir 5 Mg Tab (Immediate Release)) 5 mg PO Q4HWA PRN PRN Reason: Moderate Pain Stop: 02/10/21 05:14 Last Admin: 01/29/21 02:07 Dose: 5 mg Documented by: Potassium Chloride (Potassium Chloride Crtab 20 Meq Tabcr) 20 meq PO Q2H [facility] Stop: 01/29/21 14:01 Last Admin: 01/29/21 10:45 Dose: 20 meq Documented by: Umeclidinium [place] (Umeclidinium [place] 62.5mcg/Blister 7 Puffs/Inhaler) 1 puffs INH DAILY [facility] Stop: 02/21/21 18:29 Last Admin: 01/29/21 08:03 Dose: 1 puffs Documented by: Resident Activity Tracking Resident Involvement: Resident Care Provided Care Provided: Adult Hospital Medicine
[2021-01-29] MEDS: UMECLIDINIUM BROMIDE 62.5MCG/BLISTER 7 PUFFS/INHALER INH SCH (08:03)
[2021-01-29] MEDS: FOLIC ACID 1 MG in SYRINGE 9.8 ML IV SCH (08:03)
[2021-01-29] MEDS: PANTOprazole 40 MG in SYRINGE 0 ML IV SCH ×2 (08:04→20:57)
[2021-01-29] MEDS: carvediloL 12.5 MG TAB PO SCH ×2 (08:04→20:55)
[2021-01-29] MEDS: FLUCONAZOLE 100 MG TAB PO SCH (08:04)
[2021-01-29] MEDS: NICOTINE 14 MG/24 HR PATCH TD SCH (08:04)
[2021-01-29] MEDS: CLOPIDOGREL BISULFATE 75 MG TAB PO SCH (08:05)
[2021-01-29] MEDS: lisinopril 10 MG TAB PO SCH (08:05)
[2021-01-29] MEDS: THIAMINE HCL 100 MG in SYRINGE 9 ML IV SCH (08:05)
[2021-01-29 08:08] LABS: Basophils # (auto) 0.03 K/uL (0-0.2); Basophils % (auto) 0.4 %; Eosinophils # (auto) 0.23 K/uL (0-0.5); Eosinophils % (auto) 2.7 %; Hematocrit (blood only) 38.7 % (37-47); Hemoglobin 13.8 g/dL (12.0-16.0); Immature Granulocytes # (auto) 0.01 K/uL (0.00-0.02); Immature Granulocytes % (auto) 0.1 %; Lymphocytes # (auto) 0.87 K/uL (1.2-3.4); Lymphocytes % (auto) 10.3 %; Mean Corpuscular Hemoglobin 35.6 pg (25-34); Mean Corpuscular Hgb Conc 35.7 g/dL (32-36); Mean Corpuscular Volume 99.7 fL (80-100); Mean Platelet Volume 9.2 fL (7.4-10.4); Monocytes # (auto) 0.39 K/uL (0.11-0.59); Monocytes % (auto) 4.6 %; Neutrophils # (auto) 6.89 K/uL (1.4-6.5); Neutrophils % (auto) 81.9 %; Platelet Count 247 K/uL (130-400); RDW Coefficient of Variation 12.9 % (11.5-14.5); RDW Standard Deviation 46.8 fL (36.4-46.3); Red Blood Count 3.88 M/uL (4.2-5.4); White Blood Count 8.42 K/uL (4.8-10.8)
[2021-01-29 08:43] LABS: BUN Creatinine Ratio 11.1 (10-20); Calcium 8.7 mg/dl (8.5-10.1); Est GFR (African American) 117.1; Magnesium 1.7 mg/dl (1.8-2.4); Potassium 3.2 mmol/L (3.5-5.1)
[2021-01-29 08:45] LABS: Phosphorus 3.3 mg/dl (2.5-4.9)
[2021-01-29] MEDS: POTASSIUM CHLORIDE CRTAB 20 MEQ TABCR PO SCH ×3 (10:45→14:35)
--- NOTE | 2021-01-29 11:19 | Surgery Progress Note ---
Date of Service January 29, 2021 Assessment & Plan (1) Gastric perforation: Postoperative day #7 status post repair of perforated duodenal ulcer Doing well Tolerating diet Aldo-Salas with minimal output Developed rash We will stop Zosyn and start clindamycin May also need to stop Diflucan We will order Benadryl Increase activity Admission and Anticipated Discharge Date Admission Date: January 22, 2021 Subjective Postoperative day #7 status post repair of perforated duodenal ulcer Underwent successful revascularization procedure yesterday Tolerating regular diet Very little abdominal pain Passing flatus Had bowel movement yesterday Denies nausea and vomiting Developed rash over abdomen and upper thighs States that it is itchy Aldo-Salas had 50 cc out yesterday and 40 cc out on first shift today and all is serosanguineous Physical Exam Constitutional: no acute distress Gastrointestinal (Abdomen): Inspection/Auscultation: normal bowel sounds, + abdominal surgical incision (Clean, dry and intact) and + abdominal surgical drain present; abdomen not distended Percussion/Palpation: + abdomen tender (Minimal incisional) and abdomen soft Diffuse papular rash that is mildly erythematous throughout her abdomen Results & Data ([facility]) Vital Signs (Past 12 Hours) Vital Signs Temp Pulse Pulse Pulse Resp BP Pulse Ox 01/29/21 07:38 37.3 C 66 19 166/70 H 92 01/29/21 05:27 92 H 152/69 H 01/29/21 04:30 84 168/63 H 01/29/21 03:38 36.8 C 90 20 198/77 H 96 01/29/21 00:00 79 Laboratory Results 01/29/21 01/29/21 01/28/21 Range/Units 07:55 07:55 15:32 WBC 8.42 (4.8-10.8) K/uL RBC 3.88 L (4.2-5.4) M/uL Hgb 13.8 (12.0-16.0) g/dL Hct 38.7 (37-47) % MCV 99.7 (80-100) fL MCH 35.6 H (25-34) pg MCHC 35.7 (32-36) g/dL RDW Std Deviation 46.8 H (36.4-46.3) fL RDW Coeff of Odette 12.9 (11.5-14.5) % Plt Count 247 (130-400) K/uL MPV 9.2 (7.4-10.4) fL Immature Gran % (Auto) 0.1 % Neut % (Auto) 81.9 % Lymph % (Auto) 10.3 % [place] % (Auto) 4.6 % Eos % (Auto) 2.7 % Baso % (Auto) 0.4 % Neut # (Auto) 6.89 H (1.4-6.5) K/uL Lymph # (Auto) 0.87 L (1.2-3.4) K/uL [place] # (Auto) 0.39 (0.11-0.59) K/uL Eos # (Auto) 0.23 (0-0.5) K/uL Baso # (Auto) 0.03 (0-0.2) K/uL Immature Gran # (Auto) 0.01 (0.00-0.02) K/uL Activ Coag Time Kaolin 274 H (94-140) SECONDS Sodium 133 L (136-145) mmol/L Potassium 3.2 L (3.5-5.1) mmol/L Chloride 101 (98-107) mmol/L Carbon Dioxide 26 (21-32) mmol/L Anion Gap 6.0 (3-11) BUN 6 L (7-18) mg/dl Creatinine 0.53 L (0.6-1.2) mg/dl Est Cr Clr Drug Dosing 77.0 ml/min Est GFR ( Amer) 117.1 Est GFR (Non-Af Amer) 101.0 BUN/Creatinine Ratio 11.1 (10-20) Glucose 103 H (70-99) mg/dl Calcium 8.7 (8.5-10.1) mg/dl Phosphorus 3.3 D (2.5-4.9) mg/dl Magnesium 1.7 L (1.8-2.4) mg/dl
[2021-01-29] MEDS: CLINDAMYCIN 300 MG in DEXTROSE 5% 50 ML IV SCH ×2 (12:40→20:55)
[2021-01-29] MEDS: diphenhydrAMINE Capsule 25 MG CAP PO PRN ×2 (15:04→23:11)
--- NOTE | 2021-01-29 15:41 | Billing Data ---
Date of Service January 29, 2021 Coding Level of Care Code 53001 Subseq Hosp Care Lvl 2
[2021-01-30] MEDS: CLINDAMYCIN 300 MG in DEXTROSE 5% 50 ML IV SCH ×3 (05:35→19:50)
[2021-01-30] MEDS: carvediloL 12.5 MG TAB PO SCH ×2 (07:40→20:18)
[2021-01-30] MEDS: PANTOprazole 40 MG in SYRINGE 0 ML IV SCH ×2 (07:40→20:18)
[2021-01-30] MEDS: FOLIC ACID 1 MG in SYRINGE 9.8 ML IV SCH (07:41)
[2021-01-30] MEDS: THIAMINE HCL 100 MG in SYRINGE 9 ML IV SCH (07:41)
[2021-01-30] MEDS: UMECLIDINIUM BROMIDE 62.5MCG/BLISTER 7 PUFFS/INHALER INH SCH (07:41)
--- NOTE | 2021-01-30 07:46 | Hospitalist Progress Note ---
Date of Service January 30, 2021 Assessment & Plan (1) Pneumoperitoneum: #Duodenal ulceration and pneumoperitoneum: Presented to hospital with acutely worsening abdominal pain. CTAP showed pneumoperitoneum with unclear source of perforation. Suspect ulceration is due to increased NSAID use at home to alleviate RLE pain. General Surgery performed exploratory laparotomy and found perforated duodenal ulcer, now s/p repair on 01/22. Has been tolerating full liquid diet; will advance to Heart Healthy diet today after vascular intervention. -Has YOHAN drain x1, and surgical site appears clean and without signs of infection. -Surgery consulted -DC Zosyn, start Clinda for now continue Diflucan -Recommending evaluation of other medications are the culprit of her rash. -Continue PPI. -D/c King #Rash Surgical site rash originally thought to be secondary to candidal infection. Patient has been on fluconazole without significant improvement. Recently DC'd Zosyn and transitioned to Clinda with hopes that this would improve her symptoms. 01/30 rashes extended a bit, will monitor for an additional day to see if rash response to DC of Zosyn. If no meaningful improvement to consider allergy consult tomorrow -To consider allergy consultation #Peripheral artery disease with RLE nonhealing wounds/ulcerations: History of chronic non-healing RLE ulcerations for many months.XR foot shows mild soft tissue swelling surrounding the first MTP joint. No signs of acute fracture, dislocation or osseous erosion. RLE Duplex scan showed diffuse atherosclerotic vascular disease, with findings suggestive of high grade stenosis vs. occlusion in the area of the right SFA. Vascular surgery (Dr. Dias) consulted this admission; status post bilateral lower extremity angiography on 01/28 with stenting. Right lower extremity demonstrated 30%, iliac, 80% external iliac, 100% mid SFA occlusion, left lower extremity demonstrating 70% ostial common iliac, 60% diffuse external iliac extending into the proximal [employer]. Right external iliac arteries was stented resulting in brisk single-vessel runoff to the right foot. -Status post angiography and revascularization routine postoperative care per vascular following recs -Continue clopidogrel -Outpatient noninvasive vascular testing -Start statin prior to discharge -Continue local wound care. On Abx for peritonitis, ulcers do not appear infected. -PT/OT after revascularization. COPD / pulmonary edema: Rhonchorous sounds noted for several days this admission, Pulmonary edema noted on XR chest 01/24. Echo this admission with LVEF 65-70%, mild concentric LVH, no regional wall motion abnormalities or valvular pathology.Does not wear oxygen at baseline, but has significant smoking history. -Advised cessation of smoking especially considering LE ulcerations and vascular issues. -Incruse started this admission for COPD. -prn O2 goal 94-96% Electrolyte abnormalities: Repeat BMP,Mg,Phos in AM. -replete as indicated Code Status: FULL CODE FEN: Heart Healthy diet DVT ppx: Lovenox Dispo: medsurg (2) Peripheral artery disease: (3) Right foot ulcer: (4) Gastric perforation: (5) COPD with emphysema: Admission and Anticipated Discharge Date Admission Date: January 22, 2021 Supervising Physician Co-Signing Physician Notes I supervised the care of this patient with Olman Mireles MD. I evaluated the patient independently of him. We discussed the patient's care, and it is as noted in his note: Very pleasant 65-year-old female who was in the hospital for a perforated ulcer as well as peripheral vascular disease. Today she notes that the rash that began yesterday has spread across her stomach into her back as well. It is itchy, but there are no papules, pustules, or vesicles. There is no bleeding. There is no mucosal involvement. This appears to be a penicillinrelated drug reaction. This can in fact worsen for 1 to 2 days after discontinuation of the offending medication. It should resolve within 7 to 12 days. I have started her on cetirizine daily as well as hydroxyzine as needed for itching. Subjective Patient lying in bed this morning in no acute distress. Patient reports feeling significantly better today than yesterday. She reports overall gaining her strength back and her desire to get up and participate in PT and OT. Otherwise she is meeting all of her postoperative milestones, voiding, stooling, tolerating her diet, no acute distress. Overnight she did have an episode of hypertension which subsequently resolved with 10 mg IV hydralazine. Physical Exam Physical Exam: General: In no acute distress HEENT: Normocephalic atraumatic Neck: Normal to visual inspection Cardiac: Regular rate and rhythm I did not appreciate significant murmurs rubs or gallops normal S1, normal S2 Skin: Surgical site clean dry and intact, right lower extremity wound clean dry and intact, redness in her lower extremity improving Neuro: Alert and oriented x4 Psych: Calm and cooperative with the interview Results & Data Results & Data ([facility]) Vital Signs (Past 12 Hours) Vital Signs Temp Pulse Resp BP Pulse Ox 01/30/21 04:00 36.7 C 79 18 180/80 H 91 01/29/21 22:21 36.9 C 79 16 149/76 H 90 01/29/21 19:48 37.5 C 78 16 163/73 H 90 Laboratory Results 01/29/21 01/29/21 Range/Units 07:55 07:55 WBC 8.42 (4.8-10.8) K/uL RBC 3.88 L (4.2-5.4) M/uL Hgb 13.8 (12.0-16.0) g/dL Hct 38.7 (37-47) % MCV 99.7 (80-100) fL MCH 35.6 H (25-34) pg MCHC 35.7 (32-36) g/dL RDW Std Deviation 46.8 H (36.4-46.3) fL RDW Coeff of Odette 12.9 (11.5-14.5) % Plt Count 247 (130-400) K/uL MPV 9.2 (7.4-10.4) fL Immature Gran % (Auto) 0.1 % Neut % (Auto) 81.9 % Lymph % (Auto) 10.3 % [place] % (Auto) 4.6 % Eos % (Auto) 2.7 % Baso % (Auto) 0.4 % Neut # (Auto) 6.89 H (1.4-6.5) K/uL Lymph # (Auto) 0.87 L (1.2-3.4) K/uL [place] # (Auto) 0.39 (0.11-0.59) K/uL Eos # (Auto) 0.23 (0-0.5) K/uL Baso # (Auto) 0.03 (0-0.2) K/uL Immature Gran # (Auto) 0.01 (0.00-0.02) K/uL Sodium 133 L (136-145) mmol/L Potassium 3.2 L (3.5-5.1) mmol/L Chloride 101 (98-107) mmol/L Carbon Dioxide 26 (21-32) mmol/L Anion Gap 6.0 (3-11) BUN 6 L (7-18) mg/dl Creatinine 0.53 L (0.6-1.2) mg/dl Est Cr Clr Drug Dosing 77.0 ml/min Est GFR ( Amer) 117.1 Est GFR (Non-Af Amer) 101.0 BUN/Creatinine Ratio 11.1 (10-20) Glucose 103 H (70-99) mg/dl Calcium 8.7 (8.5-10.1) mg/dl Phosphorus 3.3 D (2.5-4.9) mg/dl Magnesium 1.7 L (1.8-2.4) mg/dl Medications Administered Current Inpatient Medications Albuterol (Albut/Ipratrop 3mg/0.5mg Neb 3 Ml Vial) 3 ml NEB Q2H PRN PRN Reason: Shortness Of Breath Or Wheezing Stop: 02/21/21 18:28 Carvedilol (Carvedilol 12.5 Mg Tab) 12.5 mg PO BID [facility] Stop: 02/27/21 20:59 Last Admin: 01/30/21 07:40 Dose: 12.5 mg Documented by: Clopidogrel Bisulfate (Clopidogrel Bisulfate 75 Mg Tab) 75 mg PO QAM [facility] Stop: 02/28/21 08:59 Last Admin: 01/29/21 08:05 Dose: 75 mg Documented by: Diphenhydramine HCl (Diphenhydramine Capsule 25 Mg Cap) 25 mg PO Q6H PRN PRN Reason: Rash Stop: 02/28/21 11:22 Last Admin: 01/29/21 23:11 Dose: 25 mg Documented by: Fluconazole (Fluconazole 100 Mg Tab) 300 mg PO DAILY [facility]; Protocol Stop: 02/07/21 08:59 Last Admin: 01/29/21 08:04 Dose: 300 mg Documented by: Hydralazine HCl (Hydralazine Hcl 20 Mg/Ml Vial) 10 mg IV Q4H PRN PRN Reason: SBP above 160 Stop: 02/22/21 20:31 Last Admin: 01/29/21 17:52 Dose: 10 mg Documented by: Hydromorphone HCl (Hydromorphone Inj 0.5 Mg/0.5 Ml Syr) 0.5 mg IV Q3HWA PRN PRN Reason: Moderate Pain Stop: 02/05/21 16:46 Last Admin: 01/29/21 03:43 Dose: 0.5 mg Documented by: Hydromorphone HCl (Hydromorphone Inj 1 Mg/Ml Syringe) 1 mg IV Q3HWA PRN PRN Reason: Severe Pain Stop: 02/05/21 16:46 Last Admin: 01/27/21 05:33 Dose: 1 mg Documented by: Pantoprazole Sodium 40 mg/ (Syringe) 10 mls @ 5 mls/min IV BID ALICIA Stop: 02/21/21 20:59 Last Admin: 01/30/21 07:40 Dose: 5 mls/min Documented by: Promethazine HCl 12.5 mg/ (Sodium Chloride) 50.5 mls @ 204 mls/hr IV Q6H PRN PRN Reason: Nausea And Vomiting Stop: 02/21/21 16:46 Thiamine HCl 100 mg/ Syringe 10 mls @ 2 mls/min IV QAM [facility] Stop: 02/23/21 08:59 Last Admin: 01/30/21 07:41 Dose: 2 mls/min Documented by: Folic Acid 1 mg/ Syringe 10 mls @ 5 mls/min IV QAM ALICIA Stop: 02/23/21 08:59 Last Admin: 01/30/21 07:41 Dose: 5 mls/min Documented by: Lorazepam (Ativan) 1 mg in 2 mls @ 2 mls/min IV UD PRN; Protocol PRN Reason: EtOH Withdrawl AWSS Score 6,7 Stop: 02/23/21 02:48 Last Admin: 01/24/21 03:08 Dose: 2 mls/min Documented by: Lorazepam (Ativan) 2 mg in 4 mls @ 4 mls/min IV UD PRN; Protocol PRN Reason: EtOH Withdrawl AWSS Score 8,9 Stop: 02/23/21 02:48 Lorazepam (Ativan) 3 mg in 6 mls @ 4 mls/min IV ONCE PRN; Protocol PRN Reason: EtOH Withdrawl AWSS Score >=10 Stop: 02/23/21 02:48 Clindamycin Phosphate 300 mg/ (Dextrose) 52 mls @ 100 mls/hr IV Q8H ALICIA Stop: 02/08/21 11:59 Last Infusion: 01/30/21 06:46 Dose: Infused Documented by: Labetalol HCl (Labetalol Hcl Iv 5 Mg/Ml 20ml) 10 mg IV Q2H PRN PRN Reason: SBP above 160 Stop: 02/22/21 22:23 Last Admin: 01/29/21 04:36 Dose: 10 mg Documented by: Lisinopril (Lisinopril 10 Mg Tab) 10 mg PO QAM [facility] Stop: 02/27/21 09:14 Last Admin: 01/29/21 08:05 Dose: 10 mg Documented by: Miscellaneous (Remove Nicoderm Patch) 1 ea N/A DAILY@[id number] [facility] Stop: 02/22/21 08:58 Last Admin: 01/29/21 08:04 Dose: 1 ea Documented by: Nicotine (Nicotine 14 Mg/24 Hr Patch) [facility] Stop: 02/22/21 08:59 Last Admin: 01/29/21 08:04 Dose: 14 mg Documented by: Ondansetron HCl (Ondansetron Inj 2 Mg/Ml 2 Ml Vial) 4 mg IV 4XDQ4H PRN PRN Reason: Nausea Stop: 02/21/21 16:46 Oxycodone HCl (Oxycodone Hcl Ir 5 Mg Tab (Immediate Release)) 5 mg PO Q4HWA PRN PRN Reason: Moderate Pain Stop: 02/10/21 05:14 Last Admin: 01/29/21 18:41 Dose: 5 mg Documented by: Umeclidinium [place] (Umeclidinium [place] 62.5mcg/Blister 7 Puffs/Inhaler) 1 puffs INH DAILY [facility] Stop: 02/21/21 18:29 Last Admin: 01/30/21 07:41 Dose: 1 puffs Documented by: Resident Activity Tracking Resident Involvement: Resident Care Provided Care Provided: Adult Hospital Medicine
[2021-01-30 08:11] LABS: Basophils # (auto) 0.02 K/uL (0-0.2); Basophils % (auto) 0.2 %; Eosinophils # (auto) 0.23 K/uL (0-0.5); Eosinophils % (auto) 2.4 %; Hematocrit (blood only) 38.8 % (37-47); Hemoglobin 13.3 g/dL (12.0-16.0); Immature Granulocytes # (auto) 0.04 K/uL (0.00-0.02); Immature Granulocytes % (auto) 0.4 %; Lymphocytes # (auto) 0.59 K/uL (1.2-3.4); Lymphocytes % (auto) 6.2 %; Mean Corpuscular Hemoglobin 34.6 pg (25-34); Mean Corpuscular Hgb Conc 34.3 g/dL (32-36); Mean Platelet Volume 9.1 fL (7.4-10.4); Monocytes % (auto) 10.6 %; Neutrophils # (auto) 7.59 K/uL (1.4-6.5); Neutrophils % (auto) 80.2 %; Platelet Count 253 K/uL (130-400); RDW Standard Deviation 47.8 fL (36.4-46.3); Red Blood Count 3.84 M/uL (4.2-5.4); White Blood Count 9.47 K/uL (4.8-10.8)
[2021-01-30] MEDS: NICOTINE 14 MG/24 HR PATCH TD SCH (08:24)
[2021-01-30] MEDS: lisinopril 10 MG TAB PO SCH (08:24)
[2021-01-30] MEDS: FLUCONAZOLE 100 MG TAB PO SCH (08:24)
[2021-01-30] MEDS: CLOPIDOGREL BISULFATE 75 MG TAB PO SCH (08:25)
[2021-01-30] MEDS: oxyCODONE HCL IR 5 MG TAB (IMMEDIATE RELEASE) PO PRN ×2 (09:13→22:27)
--- NOTE | 2021-01-30 11:37 | Surgery Progress Note ---
Date of Service January 30, 2021 Assessment & Plan (1) Gastric perforation: Postoperative day #8 status post repair of perforated duodenal ulcer From that standpoint doing well Rash has extended today May need other medications discontinued Internal medicine team will evaluate Continue clindamycin for now Admission and Anticipated Discharge Date Admission Date: January 22, 2021 Subjective Postoperative day #8 status post repair of duodenal ulcer perforation Says she feels much better today Is having bowel movements and passing flatus Bowel movements are soft and without melena or hematochezia Denies nausea and vomiting Tolerated diet Rash has extended from abdomen now to chest and back Jessie had 40 cc of fluid out yesterday and 0 over the last shift\ Revascularization as per vascular team Physical Exam Gastrointestinal (Abdomen): Inspection/Auscultation: normal bowel sounds and + abdominal surgical incision (Clean, dry and intact); abdomen not distended Percussion/Palpation: abdomen soft; abdomen nontender Skin: + rash (Macular rash has extended to chest and back) Results & Data ([facility]) Vital Signs (Past 12 Hours) Vital Signs Temp Pulse Pulse Resp BP Pulse Ox 01/30/21 08:30 81 01/30/21 08:13 36.6 C 78 19 199/82 H 91 01/30/21 04:00 36.7 C 79 18 180/80 H 91
[2021-01-30] MEDS: diphenhydrAMINE Capsule 25 MG CAP PO PRN (11:48)
[2021-01-30] MEDS: HEPARIN SOD 5,000 UNIT/0.5 ML VIAL SQ SCH ×2 (13:46→22:23)
[2021-01-30] MEDS ORDERED: hydrOXYzine HCl 25 MG TAB PO PRN (15:50)
[2021-01-30] MEDS: CETIRIZINE HCL 10 MG TABLET PO SCH (16:11)
--- NOTE | 2021-01-30 16:57 | Billing Data ---
Date of Service January 30, 2021 Coding Level of Care Code 24449 Subseq Hosp Care Lvl 2
[2021-01-30] MEDS: PIPERACILLIN/TAZOBACTAM 3.375 GM in DEXTROSE 5% 100 ML IV SCH (19:07)
[2021-01-30] MEDS: hydrALAZINE HCL 20 MG/ML VIAL IV PRN (19:50)
[2021-01-31] MEDS: CLINDAMYCIN 300 MG in DEXTROSE 5% 50 ML IV SCH ×3 (03:25→20:47)
[2021-01-31] MEDS: hydrALAZINE HCL 20 MG/ML VIAL IV PRN (03:53)
[2021-01-31 05:48] LABS: Basophils # (auto) 0.02 K/uL (0-0.2); Basophils % (auto) 0.2 %; Eosinophils # (auto) 0.26 K/uL (0-0.5); Eosinophils % (auto) 3.2 %; Hematocrit (blood only) 36.1 % (37-47); Hemoglobin 12.4 g/dL (12.0-16.0); Immature Granulocytes # (auto) 0.04 K/uL (0.00-0.02); Immature Granulocytes % (auto) 0.5 %; Lymphocytes # (auto) 1.02 K/uL (1.2-3.4); Lymphocytes % (auto) 12.5 %; Mean Corpuscular Hemoglobin 34.4 pg (25-34); Mean Corpuscular Hgb Conc 34.3 g/dL (32-36); Mean Corpuscular Volume 100.3 fL (80-100); Monocytes # (auto) 0.94 K/uL (0.11-0.59); Monocytes % (auto) 11.5 %; Neutrophils # (auto) 5.89 K/uL (1.4-6.5); Neutrophils % (auto) 72.1 %; Platelet Count 272 K/uL (130-400); RDW Standard Deviation 47.6 fL (36.4-46.3); White Blood Count 8.17 K/uL (4.8-10.8)
[2021-01-31 06:31] LABS: BUN Creatinine Ratio 16.9 (10-20); Calcium 8.4 mg/dl (8.5-10.1); Creatinine Clr Calc Pharmacy 81.1 ml/min; Est GFR (African American) 118.6; Est GFR (Non-African American) 102.3; Potassium 3.8 mmol/L (3.5-5.1)
--- NOTE | 2021-01-31 06:39 | Surgery Progress Note ---
Date of Service January 31, 2021 Assessment & Plan (1) H/O exploratory laparotomy: Patient is doing well from standpoint of perforated ulcer We will have her drain removed today Continue antibiotic treatment for peritonitis and Radha Patient does have a rash-she was on Zosyn for almost a week postop without rash We will consider discharge home in 1 to 2 days from a surgical standpoint Allergy consult may be important in that this may not be a penicillin allergy Admission and Anticipated Discharge Date Admission Date: January 22, 2021 Results & Data ([facility]) Vital Signs (Past 12 Hours) Vital Signs Temp Pulse Pulse Pulse Resp BP BP 01/31/21 03:20 36.8 C 82 18 184/86 H 01/31/21 00:07 77 01/30/21 23:10 36.8 C 82 16 149/75 H 01/30/21 19:50 80 193/79 H 01/30/21 19:39 36.7 C 76 18 166/72 H Pulse Ox 01/31/21 03:20 92 01/31/21 00:07 01/30/21 23:10 90 01/30/21 19:50 01/30/21 19:39 95 PG Care Time/CCT Total # of Minutes Spent Total Time Spent with Patient: Total time spent is greater than 50% in coordination of care (as documented) at patient's floor/unit and/or counseling patient: Coding Level of Care Code None Diagnoses H/O exploratory laparotomy Z98.890
[2021-01-31] MEDS: THIAMINE HCL 100 MG in SYRINGE 9 ML IV SCH (07:56)
[2021-01-31] MEDS: PANTOprazole 40 MG in SYRINGE 0 ML IV SCH ×2 (07:56→20:47)
[2021-01-31] MEDS: CLOPIDOGREL BISULFATE 75 MG TAB PO SCH (07:57)
[2021-01-31] MEDS: HEPARIN SOD 5,000 UNIT/0.5 ML VIAL SQ SCH ×2 (07:57→21:19)
[2021-01-31] MEDS: UMECLIDINIUM BROMIDE 62.5MCG/BLISTER 7 PUFFS/INHALER INH SCH (07:57)
[2021-01-31] MEDS: FOLIC ACID 1 MG in SYRINGE 9.8 ML IV SCH (07:57)
[2021-01-31] MEDS: lisinopril 10 MG TAB PO SCH (07:58)
[2021-01-31] MEDS: CETIRIZINE HCL 10 MG TABLET PO SCH (07:59)
[2021-01-31] MEDS: carvediloL 12.5 MG TAB PO SCH ×2 (08:00→21:19)
[2021-01-31] MEDS: NICOTINE 14 MG/24 HR PATCH TD SCH (08:00)
[2021-01-31] MEDS: FLUCONAZOLE 100 MG TAB PO SCH (08:00)
--- NOTE | 2021-01-31 08:53 | Medical Student Progress Note ---
Date of Service January 31, 2021 Assessment & Plan (1) Gastric perforation: Patient is a 65 year old female with no past medical history other than right foot ulcer who presented with severe abdominal pain due to perforated duodenal ulcer and pneumoperitonitis due to increased NSAID use to treat foot ulcer pain. She is s/p laparoscopic repair of perforated ulcer, POD#9. She is doing well with no abdominal pain. Surgical drains have been removed and surgical site is clean, dry, with no discharge. Per surgery, she should be ready for discharge in 1-2 days. Continue protonix while ulcer is healing. 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 Unlcear how long clinda will be continued. (2) Right foot ulcer: Right foot ulcers do not appear infected at this time. There is black eschar without pain, warmth, or erythema. Continue wound care. Since the stent placement, blood flow has been restored to the right foot. The foot is pink and she has regained sensation after the procedure. (3) Peripheral artery disease: Stent placed to revascularize right lower extremity. Start moderate to high intensity statin due to PAD. Start atorvastatin 40mg. She was also placed on clopidogrel due to the stent placement. Vascular surgery recommends single antiplatelet therapy with clopidogrel for ideally at least a month in setting of duodenal ulcer. Follow-up toe pressures, noninvasive vascular testing as an ou tpatient in 2 weeks. Angiography results: 80% right external iliac, 100% mid SFA occlusion. Right external iliac artery successfully stented and right SFA occlusion was corrected with drug-eluting balloon. (4) Tobacco abuse: She is motivated to stop smoking and is relatively confident that she will be able to continue to not smoke when discharged. She is currently doing well on a nicotine patch. Follow-up with PCP Dr Morgan for continued support while stopping smoking. (5) COPD with emphysema: Preliminary COPD diagnosis due to 30 pack year history and bilateral lung wheezing. She does not require O2 cannula at home and is at 94% O2 today on room air. She will need pulmonary function tests by her PCP outpatient to confirm COPD diagnosis. She was placed on incruse inhaler for suspected COPD. Rash: Rash appeared one week after abdominal surgery and being on zosyn. Rash was initially suspected to be a candidal infection and was treated with fluconazole but did not resolve. 2 days ago on 01/29, zosyn was stopped due to suspicion that the rash was a penicillin related allergy. Patient denies any history of drug reactions or penicillin reactions in the past. She was transitioned to clindamycin for her gastric perforation. The patient states that the rash feels less irritated and inflamed today. She is on cetirizine to alleviate itching which is helping. Hypertensive urgency: BP max on 01/27 was 228/113. Patient does not have a past diagnosis of hypertension. Placed on carvedilol and lisinopril, BP today is 149/81. ICU recommends work-up for hyperaldosteronism outpatient due to hypertensive urgency and electrolyte abnormalities on 01/27 and possibly using spironolactone in future. Code status: full code DVT Prophylaxis: heparin Meals: Heart Healthy meal plan Admission and Anticipated Discharge Date Admission Date: January 22, 2021 Supervising Attestation Medical Student Supervision Note: I was personally present during medical student patient encounter and independently interviewed and examined the patient and verified the finney history and physical, reviewed labs and image studies, discussed the case with Silvia Singleton and agree with the findings and care plan. s/p Peptic ulcer perforation repair- tolerating PO well. continue IV abx- switched to clinda due to rash from zosyn. s/p Rt Ext Iliac A stent/Rt SFA drug eluding baloon - continue statin, antibplatet. Rt Foot ulcer - healing well. Anticipate d/c home in 1-2 days. Subjective Patient is a 65 year old female with no stated past medical history other than a nonhealing right foot ulcer and a tubal ligation. She got a pedicure which resulted in nonhealing ulcers on her right foot. She used NSAIDs for pain control which likely caused her duodenal ulcer and caused her to present to the ED with severe lower abdominal pain. She is day #9 post op for pneumoperitoneum and perforated duodenal ulcer repair through exploratory laparoscopy. She also day #3 post op for bilateral angiography with stenting for peripheral artery disease and non healing ulcer on right foot. Her abdominal drains have been rem jennifer and she is not in any pain currently. She has no chest pain, SoB, abdominal pain, constipation, diarrhea, melena, hematochezia, leg pain. She does have green stool, some numbness in 3rd-5th toes of her right foot that resolves with movement, and an itchy rash that has spread from her surgical site around to her back. She states that she is ready to try to quit smoking. Review of Systems Constitutional: no fever and no chills Eyes: no worsening vision Ear, Nose, Mouth, Throat: no dysphagia Respiratory: no dyspnea Cardiovascular: no chest pain, no palpitations, no edema and no calf pain Gastrointestinal: no abdominal pain, no nausea, no vomiting, no constipation, no diarrhea/loose stools, no blood in stools and no melena green stools Genitourinary: no dysuria and no difficulty urinating Musculoskeletal: feels generally weaker due to bed rest Integumentary: itchy rash on abdomen and back Neurologic: no radiating pain and no headache(s) some numbness in toes 3-5 on right toe Physical Exam Constitutional: WD/WN, vitals as above Respiratory: normal respiratory effort wheezes bilaterally Cardiovascular: RRR, no murmur, no edema cannot palpate pedal pulses bilaterally Gastrointestinal (Abdomen): Inspection/Auscultation: + abdominal surgical incision (dry, clean) Percussion/Palpation: abdomen soft; abdomen nontender and no guarding Skin: erythematous macular rash around surgical site and around back. Right foot has a quarter sized ulcer on medial aspect of 1st MTP joint, nickel sized ulcer on lateral 5th MTP joint, and a shane sized ulcer on top of the foot. The ulcers are covered with black eschar, are not warm or erythematous and are not purulent or painful. Results & Data ([facility]) Vital Signs (Past 12 Hours) Vital Signs Temp Pulse Pulse Resp BP BP Pulse Ox 01/31/21 07:05 36.9 C 79 18 177/75 H 91 01/31/21 03:20 36.8 C 82 18 184/86 H 92 01/31/21 00:07 77 01/30/21 23:10 36.8 C 82 16 149/75 H 90 Medications Administered Current Inpatient Medications Albuterol (Albut/Ipratrop 3mg/0.5mg Neb 3 Ml Vial) 3 ml NEB Q2H PRN PRN Reason: Shortness Of Breath Or Wheezing Stop: 02/21/21 18:28 Atorvastatin Calcium ([facility] 40 Mg Tab) [facility] Stop: 03/02/21 09:59 Last Admin: 01/31/21 11:43 Dose: 40 mg Documented by: Carvedilol (Carvedilol 12.5 Mg Tab) 12.5 mg PO BID [facility] Stop: 02/27/21 20:59 Last Admin: 01/31/21 08:00 Dose: 12.5 mg Documented by: Cetirizine HCl (Cetirizine Hcl 10 Mg Tablet) 10 mg PO QAM [facility] Stop: 03/01/21 15:59 Last Admin: 01/31/21 07:59 Dose: 10 mg Documented by: Clopidogrel Bisulfate (Clopidogrel Bisulfate 75 Mg Tab) [facility] Stop: 02/28/21 08:59 Last Admin: 01/31/21 07:57 Dose: 75 mg Documented by: Fluconazole (Fluconazole 100 Mg Tab) 300 mg PO DAILY [facility]; Protocol Stop: 02/07/21 08:59 Last Admin: 01/31/21 08:00 Dose: 300 mg Documented by: Heparin Sodium (Porcine) (Heparin Sod 5,000 Unit/0.5 Ml Vial) 5,000 units SQ Q12 [facility] Stop: 03/01/21 12:59 Last Admin: 01/31/21 07:57 Dose: 5,000 units Documented by: Hydralazine HCl (Hydralazine Hcl 20 Mg/Ml Vial) 10 mg IV Q4H PRN PRN Reason: SBP above 160 Stop: 02/22/21 20:31 Last Admin: 01/31/21 03:53 Dose: 10 mg Documented by: Hydromorphone HCl (Hydromorphone Inj 0.5 Mg/0.5 Ml Syr) 0.5 mg IV Q3HWA PRN PRN Reason: Moderate Pain Stop: 02/05/21 16:46 Last Admin: 01/29/21 03:43 Dose: 0.5 mg Documented by: Hydromorphone HCl (Hydromorphone Inj 1 Mg/Ml Syringe) 1 mg IV Q3HWA PRN PRN Reason: Severe Pain Stop: 02/05/21 16:46 Last Admin: 01/27/21 05:33 Dose: 1 mg Documented by: Hydroxyzine HCl (Hydroxyzine Hcl 25 Mg Tab) 25 mg PO TID PRN PRN Reason: Itching Stop: 03/01/21 15:49 Last Admin: 01/30/21 16:11 Dose: 25 mg Documented by: Pantoprazole Sodium 40 mg/ (Syringe) 10 mls @ 5 mls/min IV BID [facility] Stop: 02/21/21 20:59 Last Admin: 01/31/21 07:56 Dose: 5 mls/min Documented by: Promethazine HCl 12.5 mg/ (Sodium Chloride) 50.5 mls @ 204 mls/hr IV Q6H PRN PRN Reason: Nausea And Vomiting Stop: 02/21/21 16:46 Thiamine HCl 100 mg/ Syringe 10 mls @ 2 mls/min IV QAM [facility] Stop: 02/23/21 08:59 Last Admin: 01/31/21 07:56 Dose: 2 mls/min Documented by: Folic Acid 1 mg/ Syringe 10 mls @ 5 mls/min IV QAM [facility] Stop: 02/23/21 08:59 Last Admin: 01/31/21 07:57 Dose: 5 mls/min Documented by: Lorazepam (Ativan) 1 mg in 2 mls @ 2 mls/min IV UD PRN; Protocol PRN Reason: EtOH Withdrawl AWSS Score 6,7 Stop: 02/23/21 02:48 Last Admin: 01/24/21 03:08 Dose: 2 mls/min Documented by: Lorazepam (Ativan) 2 mg in 4 mls @ 4 mls/min IV UD PRN; Protocol PRN Reason: EtOH Withdrawl AWSS Score 8,9 Stop: 02/23/21 02:48 Lorazepam (Ativan) 3 mg in 6 mls @ 4 mls/min IV ONCE PRN; Protocol PRN Reason: EtOH Withdrawl AWSS Score >=10 Stop: 02/23/21 02:48 Clindamycin Phosphate 300 mg/ (Dextrose) 52 mls @ 100 mls/hr IV Q8H [facility] Stop: 02/08/21 11:59 Last Infusion: 01/31/21 04:06 Dose: Infused Documented by: Labetalol HCl (Labetalol Hcl Iv 5 Mg/Ml 20ml) 10 mg IV Q2H PRN PRN Reason: SBP above 160 Stop: 02/22/21 22:23 Last Admin: 01/29/21 04:36 Dose: 10 mg Documented by: Lisinopril (Lisinopril 10 Mg Tab) 10 mg PO QAM [facility] Stop: 02/27/21 09:14 Last Admin: 01/31/21 07:58 Dose: 10 mg Documented by: Miscellaneous (Remove Nicoderm Patch) 1 ea N/A DAILY@0859 [facility] Stop: 02/22/21 08:58 Last Admin: 01/31/21 08:00 Dose: 1 ea Documented by: Nicotine (Nicotine 14 Mg/24 Hr Patch) 14 mg TD QAM [facility] Stop: 02/22/21 08:59 Last Admin: 01/31/21 08:00 Dose: 14 mg Documented by: Ondansetron HCl (Ondansetron Inj 2 Mg/Ml 2 Ml Vial) 4 mg IV 4XDQ4H PRN PRN Reason: Nausea Stop: 02/21/21 16:46 Oxycodone HCl (Oxycodone Hcl Ir 5 Mg Tab (Immediate Release)) 5 mg PO Q4HWA PRN PRN Reason: Moderate Pain Stop: 02/10/21 05:14 Last Admin: 01/30/21 22:27 Dose: 5 mg Documented by: Umeclidinium Grant (Umeclidinium Grant 62.5mcg/Blister 7 Puffs/Inhaler) 1 puffs INH DAILY [facility] Stop: 02/21/21 18:29 Last Admin: 01/31/21 07:57 Dose: 1 puffs Documented by:
[2021-01-31] MEDS: ATORVASTATIN 40 MG TAB PO SCH (11:43)
[2021-01-31] MEDS: oxyCODONE HCL IR 5 MG TAB (IMMEDIATE RELEASE) PO PRN (21:25)
--- NOTE | 2021-02-01 00:42 | Vascular Medicine ProgressNote ---
Date of Service February 01, 2021 Assessment & Plan (1) Peripheral artery disease: 2. Right lower extremity ulcer 3. Perforated duodenal ulcer post surgical repair 4. Hypertension 5. COPD 6. Hypokalemia 7. Tobacco abuse 8. Drug rash RLE perfusion appears improved post intervention. No apparent access site complications. -- Continue antiplatelet therapy with clopidogrel -- Continue BP control, statin and smoking cessation. -- continued wound care -- From a vascular standpoint OK for discharge. Follow-up with me in 1-2 weeks with repeat non-invasive vascular testing as an outpatient. Admission and Anticipated Discharge Date Admission Date: January 22, 2021 Subjective Reports decreased RT foot pain since intervention. Some increased numbness today. 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 Sluggish cap refill. Results & Data ([facility]) Vital Signs (Past 12 Hours) Vital Signs Temp Pulse Resp BP Pulse Ox 01/31/21 22:59 98.2 F 77 18 138/68 91 01/31/21 18:37 98.8 F 82 20 166/82 H 94 01/31/21 15:18 98.6 F 82 20 166/88 H 92 PG Care Time/CCT Total # of Minutes Spent Total Time Spent with Patient: Total time spent is greater than 50% in coordination of care (as documented) at patient's floor/unit and/or counseling patient: Coding Level of Care Code 58417 Subseq Hosp Care Lvl 2 Diagnoses Peripheral artery disease I73.9
[2021-02-01] MEDS: CLINDAMYCIN 300 MG in DEXTROSE 5% 50 ML IV SCH ×2 (03:45→12:47)
--- NOTE | 2021-02-01 06:46 | Surgery Progress Note ---
Date of Service February 01, 2021 Assessment & Plan (1) H/O exploratory laparotomy: Patient appears to be doing well She does have occasional right leg pain but no abdominal pain Taking no pain medication for her abdominal surgery We will plan discharge home later today-she does not want a visiting nurse Will continue her Diflucan and Protonix-can probably stop her other antibiotics at this point We will plan to see her in the office next week Should have medical follow-up to address her antacid therapy and also will need follow-up For her vascular disease Admission and Anticipated Discharge Date Admission Date: January 22, 2021 Results & Data ([facility]) Vital Signs (Past 12 Hours) Vital Signs Temp Pulse Pulse Resp BP Pulse Ox 02/01/21 05:00 158/77 H 02/01/21 04:26 36.9 C 82 18 179/84 H 90 02/01/21 00:00 76 01/31/21 22:59 36.8 C 77 18 138/68 91 PG Care Time/CCT Total # of Minutes Spent Total Time Spent with Patient: Total time spent is greater than 50% in coordination of care (as documented) at patient's floor/unit and/or counseling patient: Coding Level of Care Code None Diagnoses H/O exploratory laparotomy Z98.890
[2021-02-01] MEDS: oxyCODONE HCL IR 5 MG TAB (IMMEDIATE RELEASE) PO PRN (08:42)
[2021-02-01] MEDS: PANTOprazole 40 MG in SYRINGE 0 ML IV SCH (08:45)
[2021-02-01] MEDS: NICOTINE 14 MG/24 HR PATCH TD SCH (08:46)
[2021-02-01] MEDS: UMECLIDINIUM BROMIDE 62.5MCG/BLISTER 7 PUFFS/INHALER INH SCH (08:50)
[2021-02-01] MEDS: HEPARIN SOD 5,000 UNIT/0.5 ML VIAL SQ SCH (08:51)
[2021-02-01] MEDS: FLUCONAZOLE 100 MG TAB PO SCH (10:44)
[2021-02-01] MEDS: lisinopril 10 MG TAB PO SCH (10:44)
[2021-02-01] MEDS: carvediloL 12.5 MG TAB PO SCH (10:45)
[2021-02-01] MEDS: CETIRIZINE HCL 10 MG TABLET PO SCH (10:45)
[2021-02-01] MEDS: CLOPIDOGREL BISULFATE 75 MG TAB PO SCH (10:45)
[2021-02-01] MEDS: ATORVASTATIN 40 MG TAB PO SCH (10:45)
--- NOTE | 2021-02-01 11:49 | Med Student Discharge Summary ---
Date of Service February 01, 2021 Admission HPI Per Admitting Provider This is a 65y F who presented to the [facility] ED on 01/22/21 with complaints of acute abdominal pain. Patient reports her abdominal pain started yesterday and has progressively worsened. She describes it as a burning sensation, particularly in her lower abdomen, currently rating it a 6/10 in severity. Due to ongoing symptoms patient came to the ER for further evaluation. In the ER patient underwent a CT a/p that revealed moderate pneumoperitoneum, stating the exact location of bowel perforation is difficult to assess but is likely secondary to a perforated gastric/peptic ulcer. Patient denies any nausea/vomiting, chest pain/shortness of breath, diarrhea, fevers/chills. She last ate yesterday evening for dinner. She endorses some constipation. She has a past surgical history of a tubal ligation. Admission Exam (Per Admitting) Constitutional WD/WN, vitals as above not in distress This is the discharge physical exam Respiratory normal respiratory effort some wheezes bilaterally Cardiovascular RRR, no murmur, no edema Gastrointestinal (Abdomen) Inspection/Auscultation: + abdominal surgical incision (dry, clean) Percussion/Palpation: abdomen soft; abdomen nontender and no guarding Skin erythematous macular rash around surgical site and around back. Right foot has a quarter sized ulcer on medial aspect of 1st MTP joint, nickel sized ulcer on lateral 5th MTP joint, and a shane sized ulcer on top of the foot. The ulcers are covered with black eschar, are not warm or erythematous and are not purulent or painful. Specialty Data Hospitalist Current Inpatient Medications Albuterol (Albut/Ipratrop 3mg/0.5mg Neb 3 Ml Vial) 3 ml NEB Q2H PRN PRN Reason: Shortness Of Breath Or Wheezing Stop: 02/21/21 18:28 Atorvastatin Calcium (Atorvastatin 40 Mg Tab) 40 mg PO QAM [facility] Stop: 03/02/21 09:59 Last Admin: 02/01/21 10:45 Dose: 40 mg Documented by: Carvedilol (Carvedilol 12.5 Mg Tab) 12.5 mg PO BID [facility] Stop: 02/27/21 20:59 Last Admin: 02/01/21 10:45 Dose: 12.5 mg Documented by: Cetirizine HCl (Cetirizine Hcl 10 Mg Tablet) 10 mg PO QAM [facility] Stop: 03/01/21 15:59 Last Admin: 02/01/21 10:45 Dose: 10 mg Documented by: Clopidogrel Bisulfate (Clopidogrel Bisulfate 75 Mg Tab) [facility]: 02/28/21 08:59 Last Admin: 02/01/21 10:45 Dose: 75 mg Documented by: Fluconazole (Fluconazole 100 Mg Tab) 300 mg PO DAILY [facility]; Protocol Stop: 02/07/21 08:59 Last Admin: 02/01/21 10:44 Dose: 300 mg Documented by: Heparin Sodium (Porcine) (Heparin Sod 5,000 Unit/0.5 Ml Vial) 5,000 units SQ Q12 [facility] Stop: 03/01/21 12:59 Last Admin: 02/01/21 08:51 Dose: Not Given Documented by: Hydralazine HCl (Hydralazine Hcl 20 Mg/Ml Vial) 10 mg IV Q4H PRN PRN Reason: SBP above 160 Stop: 02/22/21 20:31 Last Admin: 01/31/21 03:53 Dose: 10 mg Documented by: Hydromorphone HCl (Hydromorphone Inj 0.5 Mg/0.5 Ml Syr) 0.5 mg IV Q3HWA PRN PRN Reason: Moderate Pain Stop: 02/05/21 16:46 Last Admin: 01/29/21 03:43 Dose: 0.5 mg Documented by: Hydromorphone HCl (Hydromorphone Inj 1 Mg/Ml Syringe) 1 mg IV Q3HWA PRN PRN Reason: Severe Pain Stop: 02/05/21 16:46 Last Admin: 01/27/21 05:33 Dose: 1 mg Documented by: Hydroxyzine HCl (Hydroxyzine Hcl 25 Mg Tab) 25 mg PO TID PRN PRN Reason: Itching Stop: 03/01/21 15:49 Last Admin: 01/30/21 16:11 Dose: 25 mg Documented by: Pantoprazole Sodium 40 mg/ (Syringe) 10 mls @ 5 mls/min IV BID [facility] Stop: 02/21/21 20:59 Last Admin: 02/01/21 08:45 Dose: 5 mls/min Documented by: Promethazine HCl 12.5 mg/ (Sodium Chloride) 50.5 mls @ 204 mls/hr IV Q6H PRN PRN Reason: Nausea And Vomiting Stop: 02/21/21 16:46 Clindamycin Phosphate 300 mg/ (Dextrose) 52 mls @ 100 mls/hr IV Q8H [facility] Stop: 02/08/21 11:59 Last Infusion: 02/01/21 05:10 Dose: Infused Documented by: Labetalol HCl (Labetalol Hcl Iv 5 Mg/Ml 20ml) 10 mg IV Q2H PRN PRN Reason: SBP above 160 Stop: 02/22/21 22:23 Last Admin: 01/29/21 04:36 Dose: 10 mg Documented by: Lisinopril (Lisinopril 10 Mg Tab) 10 mg PO QAM [facility] Stop: 02/27/21 09:14 Last Admin: 02/01/21 10:44 Dose: 10 mg Documented by: Miscellaneous (Remove Nicoderm Patch) 1 ea N/A DAILY@0859 [facility] Stop: 02/22/21 08:58 Last Admin: 02/01/21 08:46 Dose: 1 ea Documented by: Nicotine (Nicotine 14 Mg/24 Hr Patch) 14 mg TD QAM [facility] Stop: 02/22/21 08:59 Last Admin: 02/01/21 08:46 Dose: Not Given Documented by: Ondansetron HCl (Ondansetron Inj 2 Mg/Ml 2 Ml Vial) 4 mg IV [id number] PRN PRN Reason: Nausea Stop: 02/21/21 16:46 Oxycodone HCl (Oxycodone Hcl Ir 5 Mg Tab (Immediate Release)) 5 mg PO Q4HWA PRN PRN Reason: Moderate Pain Stop: 02/10/21 05:14 Last Admin: 02/01/21 08:42 Dose: 5 mg Documented by: Umeclidinium [place] (Umeclidinium [place] 62.5mcg/Blister 7 Puffs/Inhaler) 1 puffs INH DAILY [facility] Stop: 02/21/21 18:29 Last Admin: 02/01/21 08:50 Dose: 1 puffs Documented by: 01/22/21 01/22/21 01/22/21 09:54 09:54 09:54 WBC 10.38 RBC 4.69 Hgb 17.2 H Hct 47.2 H MCV 100.6 H MCH 36.7 H MCHC 36.4 H RDW Std Deviation 47.2 H RDW Coeff of Odette 12.9 Plt Count 225 MPV 9.2 Immature Gran % (Auto) 0.2 Neut % (Auto) 86.0 Lymph % (Auto) 6.9 Luna % (Auto) 6.2 Eos % (Auto) 0.5 Baso % (Auto) 0.2 Neut # (Auto) 8.93 H Lymph # (Auto) 0.72 L Luna # (Auto) 0.64 H Eos # (Auto) 0.05 Baso # (Auto) 0.02 Immature Gran # (Auto) 0.02 APTT PTT Ratio Activ Coag Time Kaolin Sodium 133 L Potassium 3.5 Chloride 101 Carbon Dioxide 29 Anion Gap 4.0 BUN 9 Creatinine 0.66 Est Cr Clr Drug Dosing 62.0 Est GFR ( Amer) 109.0 Est GFR (Non-Af Amer) 94.0 BUN/Creatinine Ratio 13.9 Glucose 115 H POC Glucose Lactate Calcium 9.1 Phosphorus Magnesium Total Bilirubin 0.7 AST 18 ALT 20 Alkaline Phosphatase 110 Total Protein 7.4 Albumin 4.0 Globulin 3.4 Albumin/Globulin Ratio 1.2 Lipase 150 Urine Color Yellow Urine Appearance Clear Urine pH 7.0 Ur Specific [place] 1.012 Urine Protein 1+ H Urine Glucose (UA) Negative Urine Ketones Negative Urine Blood Negative Urine Nitrite Negative Urine Bilirubin Negative Urine Urobilinogen Negative Ur Leukocyte Esterase Negative Urine WBC (Auto) 1-5 Urine RBC (Auto) 0-4 U Hyaline Cast (Auto) 1-5 U Epithel Cells (Auto) >30 H Urine Bacteria (Auto) Negative Nasal Screen MRSA (PCR) COVID-19 Eval Order SARS-CoV-2 (PCR) Influenza Type A (PCR) Influenza Type B (PCR) RSV (RT-PCR) 01/22/21 01/22/21 01/22/21 12:36 12:36 16:43 WBC RBC Hgb Hct MCV MCH MCHC RDW Std Deviation RDW Coeff of [place] Plt Count MPV Immature Gran % (Auto) Neut % (Auto) Lymph % (Auto) Luna % (Auto) Eos % (Auto) Baso % (Auto) Neut # (Auto) Lymph # (Auto) Luna # (Auto) Eos # (Auto) Baso # (Auto) Immature Gran # (Auto) APTT PTT Ratio Activ Coag Time Kaolin Sodium Potassium Chloride Carbon Dioxide Anion Gap BUN Creatinine Est Cr Clr Drug Dosing Est GFR ( Amer) Est GFR (Non-Af Amer) BUN/Creatinine Ratio Glucose POC Glucose Lactate Calcium Phosphorus Magnesium Total Bilirubin AST ALT Alkaline Phosphatase Total Protein Albumin Globulin Albumin/Globulin Ratio Lipase Urine Color Urine Appearance Urine pH Ur Specific [place] Urine Protein Urine Glucose (UA) Urine Ketones Urine Blood Urine Nitrite Urine Bilirubin Urine Urobilinogen Ur Leukocyte Esterase Urine WBC (Auto) Urine RBC (Auto) U Hyaline Cast (Auto) U Epithel Cells (Auto) Urine Bacteria (Auto) Nasal Screen MRSA (PCR) Negative COVID-19 Eval Order CovFluRsv at [facility] SARS-CoV-2 (PCR) NEGATIVE Influenza Type A (PCR) Negative Influenza Type B (PCR) Negative RSV (RT-PCR) Negative 01/22/21 01/22/21 01/22/21 18:08 18:57 18:57 WBC 13.31 H RBC 4.05 L Hgb 14.2 D Hct 41.8 MCV 103.2 H MCH 35.1 H MCHC 34.0 RDW Std Deviation 49.0 H RDW Coeff of [place] 12.9 Plt Count 169 MPV 9.1 Immature Gran % (Auto) 0.2 Neut % (Auto) 92.4 Lymph % (Auto) 4.5 Luna % (Auto) 2.8 Eos % (Auto) 0.0 Baso % (Auto) 0.1 Neut # (Auto) 12.30 H Lymph # (Auto) 0.60 L Luna # (Auto) 0.37 Eos # (Auto) 0.00 Baso # (Auto) 0.01 Immature Gran # (Auto) 0.03 H APTT PTT Ratio Activ Coag Time Kaolin Sodium 135 L Potassium 4.0 Chloride 105 Carbon Dioxide 27 Anion Gap 3.0 BUN 11 Creatinine 0.67 Est Cr Clr Drug Dosing 66.5 Est GFR ( Amer) 108.4 Est GFR (Non-Af Amer) 93.5 BUN/Creatinine Ratio 17.0 Glucose 121 H POC Glucose 113 H Lactate Calcium 7.9 L Phosphorus Magnesium Total Bilirubin 0.7 AST 27 ALT 19 Alkaline Phosphatase 79 Total Protein 5.8 L D Albumin 2.8 L Globulin 3.0 Albumin/Globulin Ratio 0.9 Lipase Urine Color Urine Appearance Urine pH Ur Specific [place] Urine Protein Urine Glucose (UA) Urine Ketones Urine Blood Urine Nitrite Urine Bilirubin Urine Urobilinogen Ur Leukocyte Esterase Urine WBC (Auto) Urine RBC (Auto) U Hyaline Cast (Auto) U Epithel Cells (Auto) Urine Bacteria (Auto) Nasal Screen MRSA (PCR) COVID-19 Eval Order SARS-CoV-2 (PCR) Influenza Type A (PCR) Influenza Type B (PCR) RSV (RT-PCR) 01/22/21 01/23/21 01/23/21 18:57 04:20 04:20 WBC 11.07 H RBC 3.88 L Hgb 13.6 Hct 40.6 MCV 104.6 H MCH 35.1 H MCHC 33.5 RDW Std Deviation 50.5 H RDW Coeff of [place] 13.2 Plt Count 178 MPV 9.3 Immature Gran % (Auto) 0.3 Neut % (Auto) 86.7 Lymph % (Auto) 6.4 Luna % (Auto) 6.3 Eos % (Auto) 0.2 Baso % (Auto) 0.1 Neut # (Auto) 9.60 H Lymph # (Auto) 0.71 L Luna # (Auto) 0.70 H Eos # (Auto) 0.02 Baso # (Auto) 0.01 Immature Gran # (Auto) 0.03 H APTT PTT Ratio Activ Coag Time Kaolin Sodium 138 Potassium 4.4 Chloride 110 H Carbon Dioxide 27 Anion Gap 1.0 L BUN 13 Creatinine 0.68 Est Cr Clr Drug Dosing 65.5 Est GFR ( Amer) 107.9 Est GFR (Non-Af Amer) 93.1 BUN/Creatinine Ratio 19.7 Glucose 109 H POC Glucose Lactate 1.0 Calcium 7.6 L Phosphorus 3.1 Magnesium 1.7 L Total Bilirubin 0.7 AST 24 ALT 21 Alkaline Phosphatase 76 Total Protein 5.9 L Albumin 2.6 L Globulin 3.3 Albumin/Globulin Ratio 0.8 L Lipase Urine Color Urine Appearance Urine pH Ur Specific [place] Urine Protein Urine Glucose (UA) Urine Ketones Urine Blood Urine Nitrite Urine Bilirubin Urine Urobilinogen Ur Leukocyte Esterase Urine WBC (Auto) Urine RBC (Auto) U Hyaline Cast (Auto) U Epithel Cells (Auto) Urine Bacteria (Auto) Nasal Screen MRSA (PCR) COVID-19 Eval Order SARS-CoV-2 (PCR) Influenza Type A (PCR) Influenza Type B (PCR) RSV (RT-PCR) 01/23/21 01/23/21 01/24/21 13:39 22:23 04:59 WBC 11.90 H RBC 4.05 L Hgb 14.3 Hct 42.4 MCV 104.7 H MCH 35.3 H MCHC 33.7 RDW Std Deviation 51.0 H RDW Coeff of [place] 13.3 Plt Count 185 MPV 9.4 Immature Gran % (Auto) 0.3 Neut % (Auto) 89.2 Lymph % (Auto) 4.9 Luna % (Auto) 5.0 Eos % (Auto) 0.4 Baso % (Auto) 0.2 Neut # (Auto) 10.62 H Lymph # (Auto) 0.58 L Luna # (Auto) 0.59 Eos # (Auto) 0.05 Baso # (Auto) 0.02 Immature Gran # (Auto) 0.04 H APTT 44.1 H PTT Ratio 1.7 Activ Coag Time Kaolin Sodium Potassium Chloride Carbon Dioxide Anion Gap BUN Creatinine Est Cr Clr Drug Dosing Est GFR ( Amer) Est GFR (Non-Af Amer) BUN/Creatinine Ratio Glucose POC Glucose 99 Lactate Calcium Phosphorus Magnesium Total Bilirubin AST ALT Alkaline Phosphatase Total Protein Albumin Globulin Albumin/Globulin Ratio Lipase Urine Color Urine Appearance Urine pH Ur Specific [place] Urine Protein Urine Glucose (UA) Urine Ketones Urine Blood Urine Nitrite Urine Bilirubin Urine Urobilinogen Ur Leukocyte Esterase Urine WBC (Auto) Urine RBC (Auto) U Hyaline Cast (Auto) U Epithel Cells (Auto) Urine Bacteria (Auto) Nasal Screen MRSA (PCR) COVID-19 Eval Order SARS-CoV-2 (PCR) Influenza Type A (PCR) Influenza Type B (PCR) RSV (RT-PCR) 01/24/21 01/24/21 01/24/21 04:59 04:59 12:06 WBC RBC Hgb Hct MCV MCH MCHC RDW Std Deviation RDW Coeff of [place] Plt Count MPV Immature Gran % (Auto) Neut % (Auto) Lymph % (Auto) Luna % (Auto) Eos % (Auto) Baso % (Auto) Neut # (Auto) Lymph # (Auto) Luna # (Auto) Eos # (Auto) Baso # (Auto) Immature Gran # (Auto) APTT 47.4 H* PTT Ratio 1.8 Activ Coag Time Kaolin Sodium 138 131 L D Potassium 3.0 L D 3.3 L Chloride 104 96 L Carbon Dioxide 27 29 Anion Gap 7.0 6.0 BUN 10 7 Creatinine 0.55 L 0.57 L Est Cr Clr Drug Dosing 82.8 79.9 Est GFR ( Amer) 115.7 114.3 Est GFR (Non-Af Amer) 99.8 98.7 BUN/Creatinine Ratio 17.4 12.1 Glucose 119 H 162 H POC Glucose Lactate Calcium 8.0 L 8.5 Phosphorus 1.7 L D Magnesium 1.6 L Total Bilirubin 0.6 AST 23 ALT 20 Alkaline Phosphatase 83 Total Protein 6.2 L Albumin 2.5 L Globulin 3.7 Albumin/Globulin Ratio 0.7 L Lipase Urine Color Urine Appearance Urine pH Ur Specific [place] Urine Protein Urine Glucose (UA) Urine Ketones Urine Blood Urine Nitrite Urine Bilirubin Urine Urobilinogen Ur Leukocyte Esterase Urine WBC (Auto) Urine RBC (Auto) U Hyaline Cast (Auto) U Epithel Cells (Auto) Urine Bacteria (Auto) Nasal Screen MRSA (PCR) COVID-19 Eval Order SARS-CoV-2 (PCR) Influenza Type A (PCR) Influenza Type B (PCR) RSV (RT-PCR) 01/25/21 01/25/21 01/25/21 04:53 04:53 04:57 WBC 13.48 H RBC 4.24 Hgb 14.9 Hct 42.4 MCV 100.0 MCH 35.1 H MCHC 35.1 RDW Std Deviation 46.9 H RDW Coeff of [place] 12.9 Plt Count 235 MPV 9.2 Immature Gran % (Auto) 0.1 Neut % (Auto) 90.6 Lymph % (Auto) 8.4 Luna % (Auto) 0.9 Eos % (Auto) 0.0 Baso % (Auto) 0.0 Neut # (Auto) 12.21 H Lymph # (Auto) 1.13 L Luna # (Auto) 0.12 Eos # (Auto) 0.00 Baso # (Auto) 0.00 Immature Gran # (Auto) 0.02 APTT 38.1 H PTT Ratio 1.4 Activ Coag Time Kaolin Sodium 133 L Potassium 3.0 L Chloride 96 L Carbon Dioxide 30 Anion Gap 7.0 BUN 13 D Creatinine 0.57 L Est Cr Clr Drug Dosing 79.9 Est GFR ( Amer) 114.3 Est GFR (Non-Af Amer) 98.7 BUN/Creatinine Ratio 22.2 H Glucose 136 H POC Glucose Lactate Calcium 8.5 Phosphorus Magnesium 2.0 Total Bilirubin 0.4 AST 21 ALT 21 Alkaline Phosphatase 90 Total Protein 6.6 Albumin 2.5 L Globulin 4.1 H Albumin/Globulin Ratio 0.6 L Lipase Urine Color Urine Appearance Urine pH Ur Specific [place] Urine Protein Urine Glucose (UA) Urine Ketones Urine Blood Urine Nitrite Urine Bilirubin Urine Urobilinogen Ur Leukocyte Esterase Urine WBC (Auto) Urine RBC (Auto) U Hyaline Cast (Auto) U Epithel Cells (Auto) Urine Bacteria (Auto) Nasal Screen MRSA (PCR) COVID-19 Eval Order SARS-CoV-2 (PCR) Influenza Type A (PCR) Influenza Type B (PCR) RSV (RT-PCR) 01/25/21 01/25/21 01/26/21 12:27 20:47 04:32 WBC 8.73 RBC 4.12 L Hgb 15.0 Hct 41.6 MCV 101.0 H MCH 36.4 H MCHC 36.1 H RDW Std Deviation 47.7 H RDW Coeff of [place] 12.8 Plt Count 216 MPV 9.1 Immature Gran % (Auto) 0.2 Neut % (Auto) 78.7 Lymph % (Auto) 9.5 Luna % (Auto) 10.9 Eos % (Auto) 0.6 Baso % (Auto) 0.1 Neut # (Auto) 6.87 H Lymph # (Auto) 0.83 L Luna # (Auto) 0.95 H Eos # (Auto) 0.05 Baso # (Auto) 0.01 Immature Gran # (Auto) 0.02 APTT 36.8 H 51.0 H* PTT Ratio 1.4 1.9 Activ Coag Time Kaolin Sodium Potassium Chloride Carbon Dioxide Anion Gap BUN Creatinine Est Cr Clr Drug Dosing Est GFR ( Amer) Est GFR (Non-Af Amer) BUN/Creatinine Ratio Glucose POC Glucose Lactate Calcium Phosphorus Magnesium Total Bilirubin AST ALT Alkaline Phosphatase Total Protein Albumin Globulin Albumin/Globulin Ratio Lipase Urine Color Urine Appearance Urine pH Ur Specific [place] Urine Protein Urine Glucose (UA) Urine Ketones Urine Blood Urine Nitrite Urine Bilirubin Urine Urobilinogen Ur Leukocyte Esterase Urine WBC (Auto) Urine RBC (Auto) U Hyaline Cast (Auto) U Epithel Cells (Auto) Urine Bacteria (Auto) Nasal Screen MRSA (PCR) COVID-19 Eval Order SARS-CoV-2 (PCR) Influenza Type A (PCR) Influenza Type B (PCR) RSV (RT-PCR) 01/26/21 01/26/21 01/27/21 04:32 04:38 07:24 WBC RBC Hgb Hct MCV MCH MCHC RDW Std Deviation RDW Coeff of [place] Plt Count MPV Immature Gran % (Auto) Neut % (Auto) Lymph % (Auto) Luna % (Auto) Eos % (Auto) Baso % (Auto) Neut # (Auto) Lymph # (Auto) Luna # (Auto) Eos # (Auto) Baso # (Auto) Immature Gran # (Auto) APTT 47.8 H* 47.6 H* PTT Ratio 1.8 1.8 Activ Coag Time Kaolin Sodium 134 L Potassium 2.9 L Chloride 97 L Carbon Dioxide 33 H Anion Gap 4.0 BUN 17 Creatinine 0.56 L Est Cr Clr Drug Dosing 78.1 Est GFR ( Amer) 115.0 Est GFR (Non-Af Amer) 99.2 BUN/Creatinine Ratio 30.4 H Glucose 104 H POC Glucose Lactate Calcium 8.5 Phosphorus Magnesium 1.9 Total Bilirubin 0.5 AST 17 ALT 19 Alkaline Phosphatase 80 Total Protein 6.2 L Albumin 2.5 L Globulin 3.7 Albumin/Globulin Ratio 0.7 L Lipase Urine Color Urine Appearance Urine pH Ur Specific [place] Urine Protein Urine Glucose (UA) Urine Ketones Urine Blood Urine Nitrite Urine Bilirubin Urine Urobilinogen Ur Leukocyte Esterase Urine WBC (Auto) Urine RBC (Auto) U Hyaline Cast (Auto) U Epithel Cells (Auto) Urine Bacteria (Auto) Nasal Screen MRSA (PCR) COVID-19 Eval Order SARS-CoV-2 (PCR) Influenza Type A (PCR) Influenza Type B (PCR) RSV (RT-PCR) 01/27/21 01/28/21 01/28/21 15:19 06:15 06:15 WBC 7.23 RBC 3.90 L Hgb 13.6 Hct 39.5 MCV 101.3 H MCH 34.9 H MCHC 34.4 RDW Std Deviation 47.6 H RDW Coeff of [place] 12.9 Plt Count 204 MPV 9.2 Immature Gran % (Auto) Neut % (Auto) Lymph % (Auto) Luna % (Auto) Eos % (Auto) Baso % (Auto) Neut # (Auto) Lymph # (Auto) Luna # (Auto) Eos # (Auto) Baso # (Auto) Immature Gran # (Auto) APTT PTT Ratio Activ Coag Time Kaolin Sodium 131 L 132 L Potassium 3.5 D 3.2 L Chloride 97 L 98 Carbon Dioxide 28 31 Anion Gap 5.0 3.0 BUN 7 D 6 L Creatinine 0.45 L 0.48 L Est Cr Clr Drug Dosing 101.2 94.9 Est GFR ( Amer) 123.6 121.0 Est GFR (Non-Af Amer) 106.6 104.4 BUN/Creatinine Ratio 15.4 11.6 Glucose 111 H 95 POC Glucose Lactate Calcium 8.7 8.6 Phosphorus 2.1 L Magnesium 1.6 L Total Bilirubin AST ALT Alkaline Phosphatase Total Protein Albumin Globulin Albumin/Globulin Ratio Lipase Urine Color Urine Appearance Urine pH Ur Specific [place] Urine Protein Urine Glucose (UA) Urine Ketones Urine Blood Urine Nitrite Urine Bilirubin Urine Urobilinogen Ur Leukocyte Esterase Urine WBC (Auto) Urine RBC (Auto) U Hyaline Cast (Auto) U Epithel Cells (Auto) Urine Bacteria (Auto) Nasal Screen MRSA (PCR) COVID-19 Eval Order SARS-CoV-2 (PCR) Influenza Type A (PCR) Influenza Type B (PCR) RSV (RT-PCR) 01/28/21 01/28/21 01/29/21 06:15 15:32 07:55 WBC 8.42 RBC 3.88 L Hgb 13.8 Hct 38.7 MCV 99.7 MCH 35.6 H MCHC 35.7 RDW Std Deviation 46.8 H RDW Coeff of [place] 12.9 Plt Count 247 MPV 9.2 Immature Gran % (Auto) 0.1 Neut % (Auto) 81.9 Lymph % (Auto) 10.3 Luna % (Auto) 4.6 Eos % (Auto) 2.7 Baso % (Auto) 0.4 Neut # (Auto) 6.89 H Lymph # (Auto) 0.87 L Luna # (Auto) 0.39 Eos # (Auto) 0.23 Baso # (Auto) 0.03 Immature Gran # (Auto) 0.01 APTT 57.1 H* PTT Ratio 2.2 Activ Coag Time Kaolin 274 H Sodium Potassium Chloride Carbon Dioxide Anion Gap BUN Creatinine Est Cr Clr Drug Dosing Est GFR ( Amer) Est GFR (Non-Af Amer) BUN/Creatinine Ratio Glucose POC Glucose Lactate Calcium Phosphorus Magnesium Total Bilirubin AST ALT Alkaline Phosphatase Total Protein Albumin Globulin Albumin/Globulin Ratio Lipase Urine Color Urine Appearance Urine pH Ur Specific [place] Urine Protein Urine Glucose (UA) Urine Ketones Urine Blood Urine Nitrite Urine Bilirubin Urine Urobilinogen Ur Leukocyte Esterase Urine WBC (Auto) Urine RBC (Auto) U Hyaline Cast (Auto) U Epithel Cells (Auto) Urine Bacteria (Auto) Nasal Screen MRSA (PCR) COVID-19 Eval Order SARS-CoV-2 (PCR) Influenza Type A (PCR) Influenza Type B (PCR) RSV (RT-PCR) 01/29/21 01/30/21 01/31/21 07:55 07:59 05:33 WBC 9.47 8.17 RBC 3.84 L 3.60 L Hgb 13.3 12.4 Hct 38.8 36.1 L MCV 101.0 H 100.3 H MCH 34.6 H 34.4 H MCHC 34.3 34.3 RDW Std Deviation 47.8 H 47.6 H RDW Coeff of [place] 13.0 13.0 Plt Count 253 272 MPV 9.1 9.0 Immature Gran % (Auto) 0.4 0.5 Neut % (Auto) 80.2 72.1 Lymph % (Auto) 6.2 12.5 Luna % (Auto) 10.6 11.5 Eos % (Auto) 2.4 3.2 Baso % (Auto) 0.2 0.2 Neut # (Auto) 7.59 H 5.89 Lymph # (Auto) 0.59 L 1.02 L Luna # (Auto) 1.00 H 0.94 H Eos # (Auto) 0.23 0.26 Baso # (Auto) 0.02 0.02 Immature Gran # (Auto) 0.04 H 0.04 H APTT PTT Ratio Activ Coag Time Kaolin Sodium 133 L Potassium 3.2 L Chloride 101 Carbon Dioxide 26 Anion Gap 6.0 BUN 6 L Creatinine 0.53 L Est Cr Clr Drug Dosing 77.0 Est GFR ( Amer) 117.1 Est GFR (Non-Af Amer) 101.0 BUN/Creatinine Ratio 11.1 Glucose 103 H POC Glucose Lactate Calcium 8.7 Phosphorus 3.3 D Magnesium 1.7 L Total Bilirubin AST ALT Alkaline Phosphatase Total Protein Albumin Globulin Albumin/Globulin Ratio Lipase Urine Color Urine Appearance Urine pH Ur Specific [place] Urine Protein Urine Glucose (UA) Urine Ketones Urine Blood Urine Nitrite Urine Bilirubin Urine Urobilinogen Ur Leukocyte Esterase Urine WBC (Auto) Urine RBC (Auto) U Hyaline Cast (Auto) U Epithel Cells (Auto) Urine Bacteria (Auto) Nasal Screen MRSA (PCR) COVID-19 Eval Order SARS-CoV-2 (PCR) Influenza Type A (PCR) Influenza Type B (PCR) RSV (RT-PCR) 01/31/21 05:33 WBC RBC Hgb Hct MCV MCH MCHC RDW Std Deviation RDW Coeff of Odette Plt Count MPV Immature Gran % (Auto) Neut % (Auto) Lymph % (Auto) Luna % (Auto) Eos % (Auto) Baso % (Auto) Neut # (Auto) Lymph # (Auto) Luna # (Auto) Eos # (Auto) Baso # (Auto) Immature Gran # (Auto) APTT PTT Ratio Activ Coag Time Kaolin Sodium 134 L Potassium 3.8 D Chloride 102 Carbon Dioxide 28 Anion Gap 4.0 BUN 9 Creatinine 0.51 L Est Cr Clr Drug Dosing 81.1 Est GFR ( Amer) 118.6 Est GFR (Non-Af Amer) 102.3 BUN/Creatinine Ratio 16.9 Glucose 88 POC Glucose Lactate Calcium 8.4 L Phosphorus Magnesium Total Bilirubin AST ALT Alkaline Phosphatase Total Protein Albumin Globulin Albumin/Globulin Ratio Lipase Urine Color Urine Appearance Urine pH Ur Specific [place] Urine Protein Urine Glucose (UA) Urine Ketones Urine Blood Urine Nitrite Urine Bilirubin Urine Urobilinogen Ur Leukocyte Esterase Urine WBC (Auto) Urine RBC (Auto) U Hyaline Cast (Auto) U Epithel Cells (Auto) Urine Bacteria (Auto) Nasal Screen MRSA (PCR) COVID-19 Eval Order SARS-CoV-2 (PCR) Influenza Type A (PCR) Influenza Type B (PCR) RSV (RT-PCR) Discharge Data Consultations 01/22/21 12:19 ED Decision to Admit Stat 01/22/21 12:47 Consult Hospitalist Routine 01/22/21 15:01 Consult Supervisor Locomotive Routine 01/23/21 20:04 Consult Vascular Surgery Routine Procedures Performed Operation Date: 01/22/21 11:40 Actual Procedures p Exploratory Laparotomy with Closure of Perforated Duodenal Ulcer(Not Applicable) - Betito Craig MD, FACS Operation Date: 01/28/21 12:00 Actual Procedures s Ultrasound Vascular Access - Andrew Dias MD s Placement Art Occlusive Device - MD manny Miles Femoral Popliteal Balloon - Andrew Dias MD s Iliac Stent Balloon - Andrew Dias MD p Angio Extremity Unilateral - Andrew Dias MD Hospital Course (1) Gastric perforation: Patient is a 65 year old female with no past medical history other than right foot ulcer who presented with severe abdominal pain due to perforated duodenal ulcer and pneumoperitonitis due to increased NSAID use to treat foot ulcer pain. She is s/p laparoscopic repair of perforated ulcer on 01/22/21. She is doing well with no abdominal pain. Surgical drains have been removed and surgical site is clean, dry, with no discharge. Continue protonix while ulcer is healing. 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 Was initially started on IV Zosyn - later switched to Clindamycin due to concern of penicillin allergy. Antibiotics d/juan on day of discharge. Sucralfate 1g PO QID for 30 days to help heal ulcer. Per surgery, patient is stable for discharge, with follow-up in [address] Craig. (2) Right foot ulcer: Right foot ulcers after pedicure - do not appear infected at this time. There is black eschar without pain, warmth, or erythema. Continue wound care. Since the stent placement, blood flow has been restored to the right foot. The foot is pink and she has regained sensation after the procedure. Continue wound care outpatient, inform PCP about any signs of infection or worsening. (3) Peripheral artery disease: Angiography results: 80% right external iliac, 100% mid SFA occlusion. Right external iliac artery successfully stented and right SFA occlusion was corrected with drug-eluting balloon. Stent placed to revascularize right lower extremity on 01/28. Start moderate to high intensity statin due to PAD. Started atorvastatin 40mg. She was also placed on clopidogrel due to the stent placement. Vascular surgery recommends single antiplatelet therapy with clopidogrel for ideally at least a month in setting of duodenal ulcer. Follow-up toe pressures, noninvasive vascular testing as an outpatient in [address] Dias. (4) Tobacco abuse: She is motivated to stop smoking and is relatively confident that she will be able to continue to not smoke when discharged. She is currently doing well on a nicotine patch 14mg which has been sent to her pharmacy to continue using outpatient. Follow-up with PCP Dr Morgan for continued support while stopping smoking. (5) COPD with emphysema: Preliminary COPD diagnosis due to 30 pack year history and bilateral lung wheezing. She does not require O2 cannula at home and is at 96% O2 today on room air. She will need pulmonary function tests by her PCP outpatient to confirm COPD diagnosis. She was placed on incruse inhaler for suspected COPD. Rash: Rash appeared one week after abdominal surgery and being on zosyn. Rash likely penicillin allergy. Patient denies any history of drug reactions or penicillin reactions in the past. She was transitioned to clindamycin for her gastric perforation. Clindamycin was stopped 01/31/21, abx course completed per surgery. The patient states that the rash feels less irritated and inflamed today. She is on cetirizine to alleviate itching which is helping. Should get in with allergy clinic for allergy test and desensitization. Possible concern of this rash being candidal infection and was also treated with fluconazole - continue outpatient per surgery, Dr. Craig. Outpatient PCP follow up. Hypertensive urgency: BP max on 01/27 was 228/113. Patient does not have a past diagnosis of hypertension. BP today is 149/81. ICU recommends work-up for hyperaldosteronism outpatient due to hypertensive urgency and electrolyte abnormalities on 01/27 and possibly using spironolactone in future. Carvedilol 12.5mg and lisinopril 10mg was started - continue as outpatient. Recommend that patient keep a BP log and re-evaluates need for these medication at next PCP visit. Code status: full code DVT Prophylaxis: heparin Meals: Heart Healthy meal plan Discharge Plan Discharge Items Patient Disposition: Home - Home Health Services Reason For Visit: PERFORATED ULCER Discharge Diagnosis: perforated duodenal ulcer Ischemic right leg Condition on Discharge: Good Activity: Per Instructions section Activity Comment: light activity for 4 weeks Lifting: No more than 10 pounds Bathing Comment: may shower; no soaking in tubs/pools Sexual Activity: When tolerated Exercise/Sports: Wait until after follow-up appointment Exercise Comment: wait 4 weeks Driving/Machine Use: do not resume driving while taking narcotics for pain Non-emergency contact: Primary Care Provider and Surgeon Call non-emergency contact if: you have any medication questions, your symptoms worsen, your pain is not controlled, your pain is concerning for you, you have a fever, your temperature is above 101.5, your wound has increased redness, your wound has increased drainage and your wound pain has increased Follow-up/Referrals: Betito Craig MD, FACS [Physician] - PCP,NO [Primary Care Provider] - Diet: Regular Addtl Attending Provider Instructions: You were admitted to the hospital for a perforated ulcer and leg ischemia (poor blood flow). These were both surgically repaired. It is very important that you continue the medicines outlined below to continue your recovery. A discharge summary will be sent to your primary care physician to ensure continuity of care. Please bring this discharge summary with you to your next office appointment so that your provider can review it at that time. Follow-up appointments: - Make a follow-up appointment with your PCP within the next week. It is very important that you follow up with them shortly after discharge from the hospital. Important things to discuss with them include smoking cessation, blood pressure, and pulmonary function testing to evaluate for COPD. - You will have a follow-up appointment with Dr. Craig in about a week. If you do not hear from their office new car get ready mechanic, please call his office at [phone]. - You will have a follow-up appointment with Dr. Dias in about two weeks. If you do not hear from their office new car get ready mechanic, please call his office at [phone]. - Keep all your follow-up appointments as already scheduled. If you cannot make an appointment, notify your provider. Medications: - Your medication list has been reviewed and reconciled upon discharge to ensure accuracy and continuity of care. - You are provided with a list of all your current medications at this time. Please review this list closely and make note of any changes. - Please take all of your medications exactly as prescribed. * We sent a new medicine, clopidogrel (also known as Plavix), to your pharmacy. This is a medicine that protects your arteries from clot formation. Take cl opidogrel (75mg) once tablet daily by mouth. Dr. Dias will help you decide how long to continue taking clopidogrel. * We sent a new medicine, atorvastatin, to your pharmacy. This is a medicine that lowers your cholesterol. Take atorvastatin (40mg) once tablet daily by mouth. * We sent a new medicine, carvedilol, to your pharmacy. This is a medicine for your blood pressure. Take carvedilol (12.5mg) once tablet twice daily by mouth . * We sent a new medicine, lisinopril, to your pharmacy. This is another medicine for your blood pressure. Take lisinopril (10mg) once tablet daily by mouth. * We sent another new medicine, pantoprazole (also known as Protonix) to your pharmacy. This lowers acid in your stomach. Take pantoprazole 40mg one tablet daily by mouth. * We sent another new medicine, sucralfate, to your pharmacy. This protects your stomach. Take sucralfate 1g four times daily until you meet with Dr. Craig for your follow-up appointment. Discuss with Dr. Craig how long you should continue taking this. * We sent nicotine patches (14g patches) to your pharmacy. Follow the package instructions for details on how to properly use nicotine patches. Continue using this as needed until you can follow up with your primary care physician and discuss how to proceed. * Continue taking fluconazole 300mg one tablet by mouth daily. Talk with your primary care physician to decide how long you should continue taking this. * Continue taking all your other medicines as previously instructed. - Tell your primary care provider if you cannot afford your medications. - Call your primary care provider if you are having any side effects or any other problems. - Call your primary care provider before taking any over the counter medications or supplements, including herbals and vitamins, because some of these may int eract with your current medications and/or make your symptoms worse. SPECIAL CARE INSTRUCTIONS: * Cover incisions and change daily for comfort/drainage. * May use ibuprofen for pain as tolerated. * Expect some swelling and bruising. Call your doctor if you experience the following: * Temperature above 101 degrees * Pain not relieved by pain medicine ordered * There is increased drainage or redness from any incision * You have any unanswered questions or concerns [phone]. Thank you for allowing us to participate in your care. Pending Studies at Discharge: No Stand-Alone Forms: My [facility] [employer], Smoking Cessation Medications and DC Order Prescriptions: New fluconazole 100 mg Tablet 300 mg PO DAILY 7 Days Qty: 21 RF: 0 pantoprazole [Protonix] 40 mg tablet,delayed release (DR/EC) 40 mg PO DAILY 28 Days Qty: 28 RF: 3 atorvastatin 40 mg tablet 40 mg PO DAILY 30 Days Qty: 30 RF: 2 sucralfate 1 gram tablet 1 g PO QID 30 Days Qty: 120 RF: 0 fluconazole 100 mg tablet 100 mg PO DAILY 14 Days Qty: 14 RF: 0 nicotine 7 mg/24 hr Patch 24 Hour 14 mg transdermal QAM 14 Days Qty: 14 RF: 2 clopidogrel 75 mg Tablet 75 mg PO QAM Qty: 30 RF: 2 carvedilol 12.5 mg Tablet 12.5 mg PO BID Qty: 30 RF: 1 lisinopril 10 mg Tablet 10 mg PO QAM Qty: 30 RF: 1 Discharge Orders: Discharge Order (Routine); Ordered 02/01/21 Ordered By: Betito Craig Admission Data Admit Date/Time: 01/22/21 15:01 Attending Provider: Betito Craig Admit Provider: Betito Craig Primary Care Provider: PCP,NO Other Providers: Timur Lay ; Betito Craig ; Uriah Fontanez ; Eva Inman ; Andrew Dias ; Mera Mike ; Devin Grier [facility] Other Interventions: Discharge Summary Assessment (RN) Last Done: 02/01/21 14:09 Supervising Attestation Medical Student Supervision Note: I was personally present during medical student patient encounter and independently interviewed and examined the patient and verified the finney history and physical, reviewed labs and image studies, discussed the case with Silvia Singleton and agree with the findings and care plan. tolerating PO well. right foot pain improved. no shortness of breath/chest pain o/e - General - AAOx3 Heart - regular rate lungs - no respiratory distress Right foot - wound eschar - dry. no sign of infection. Feet - warm. Abx d/c on discharge rash likely drug reaction- outpatient allergy eval. surgery initiated diflucan for concern of ?alexx infection and instructed to continue on discharge. to be further evaluated by pcp. continue statin and antiplatelet. outpatient vascular follow up.
== END 2021-02-01 14:30 | disposition home health service (06) | DRG 356 ==
LOC: ED 09:29 → ASU 13:43 → 1E 15:01 → 2S 01-27 19:16 → 2N 01-29 13:21
PROC: CLB.AEU (2021-01-28 12:00)

== ENCOUNTER 2021-03-29 23:39 | Inpatient (IN) ==
[2021-03-29] MEDS ORDERED: ALBUT/IPRATROP 3MG/0.5MG NEB 3 ML VIAL NEB STA (23:58)
[2021-03-29] MEDS ORDERED: MULTI-VITAMIN INFUSION 10 ML, THIAMINE HCL 100 MG, FOLIC ACID 1 MG in SODIUM CHLORIDE 0... IV ONE (23:58)
--- NOTE | 2021-03-30 00:06 | Emergency Department Note ---
Impression & Plan Asthma exacerbation in COPD, COPD exacerbation, Dizziness, Alcohol intoxication ED Provider Note Name: DANE GLASGOW Age: 65 Sex: F Arrives Via: Ambulance Informant: Patient ED Provider: Marcos Esquivel MD Chief Complaint: Dizziness Impression: COPD Exacerbation Dizziness Alcohol Intoxication Medical Decision Makin yr old female with extensive PMH including being treated for wound right foot which recently had vascular stenting to leg. Arrives with worsening dizziness and weakness. Exam remarkable for quite poor lung sounds and wheezing. No fevers, no hypoxia and WBC OK, without infiltrate on CXR unlikely aspiration/pneumonia. CT head negative for acute findings and without neuro deficits no indication for TPA nor emergent MRI. Right foot wound without clear evidence of active infection and there is good blood flow to foot. Tylenol for her headache and foot discomfort (chronic) which worked well. Duoneb for pulm, and noted much louder wheezing after this. Given such poor lung sounds, despite good sats, I feel hospitalization of this moderately intoxicated patient the best course. Given Doxy for abx coverage of smoker with copd exacerbation, and decadron IV. Patient agreeable to this plan. Denies active dizziness, headac he, weakness at time of hospitalization. She is not in heart failure nor is this consistent with PE/Dissection, nor ACS. Prior Medical Record and Triage/Nursing Notes reviewed by Me Additional history obtained from chart Differentials:Infection, dehydration, metabolic abnormality, hypo/hyperglycemia, electrolyte disturbance, anemia, hypoxia, cardiac sources, intracerebral event, toxicologic, neurologic, as well as other pathologies. Vital Signs: reviewed and remarkable for HTN Interventions: saline lock, bananabag iv, duoneb, tylenol po, decadron 10mg IV, doxy 100mg IV Labs:Reviewed and remarkable for no significant abnormalities Imaging:X ray results are stated below per my interpretation: Chest: 1 view: No infiltrate, no effusion, normal cardiac border. [facility] Radiologist interpretation reviewed by me: CT Head, no acute findings, mild atrophy EKG:Per My Interpretation: Indication weakness: NSR 80 bpm, qtc 449. No Ectopy. No Ischemia. Compared to EKG 03/24/21, no significant changes. Cardiac/Tele Monitoring: Cardiac Monitoring: An Order was placed for continuous cardiac monitoring. The monitor shows a rate of 80 with a normal sinus rhythm. Consults:Dr Chi ORDOÑEZ Hospitalist Plan: Disposition:Hospitalization. Condition: Good History of Present Illness:65 yr old female arrives for evaluation of generalized weakness. Patient notes she has been feeling weak since this morning. Associated with lightheaded, dizziness, headache, and body aches. S tates she feels like her breathing is worse than normal as well without productive cough nor coughing. Denies fevers, chills, syncope, abdominal pain, nausea, vomiting, leg swelling, nor other symptoms. Recent right leg vascular stent. She has right foot ulcer which she believes looks improved over the last week. Denies worsening redness nor drainage. Patient denies falls, trauma, injuries. Admits drinking alcohol tonight. Nothing makes weakness better nor worse. No medications taken for this this evening. She is not sure if this has happened before. Denies focal weakness, sudden onset headache. She is on ASA and Plavix (which was added on last week). Believes she has been taking all medications as prescribed ROS: See above HPI for pertinent positives & negatives. A total of 10 systems reviewed and were otherwise negative. Past Medical History:See Below Past Surgical History:See Below Family History:See Below Social History:See Below Home Medications:See Below Allergies:NKDA Vitals:Blood Pressure: 143/71, Pulse 80, RR 19, T 36.4C, O2 95% on RA Physical Exam: GENERAL: Patient is intoxicated appearing and in minimal distress. EYES: No scleral icterus, unremarkable pupils. ENT: Mucous membranes dry, no nasal congestion. NECK: No masses appreciated, nomeningismus, trachea is midline. RESPIRATORY: Loud diffuse wheezing mild dyspnea, no tachypnea CARDIOVASCULAR: Regular rate and rhythm.No murmurs, rubs, gallops appreciated. GASTROINTESTINAL: Abdomen soft, non-tender, no peritonitis.Bowel sounds positive.No masses appreciated. BACK: No midline tenderness, no CVA tenderness EXTREMITIES: Circular wound right foot medial 1st MTP with granulation tissue, no drainage. Foot is warm, mildly erythematous without streaking. Normal motion all extremities, no cyanosis, no edema. NEUROLOGIC: Alert and oriented, no acute motor or sensory deficits, no focal weakness, cranial nerves grossly intact. SKIN: No rash, no jaundice, no diaphoresis. PSYCH: Appropriate GCS: 15 ED Course: Times/Reassessments: stable though still poor resp exam post neb. Marcos sEquivel MD Past Med/Surg History Medical History (Updated 03/30/21 @ 03:35 by Marcos Esquivel MD) COPD (chronic obstructive pulmonary disease) Gastric ulcer Hypertensive urgency Hypokalemia Peripheral artery disease Surgical History H/O exploratory laparotomy (01/22/21) Exploratory laparotomy, oversew perforated duodenal ulcer, abdominal washout. Dr. Craig 01/22/2021 H/O tubal ligation Social History Smoking Status: Current every day smoker Tobacco Type: Cigarettes Age Started Using Tobacco: 27; Cigarettes Per Day: 20; Do You Dip or Chew Tobacco: No; Hx Alcohol Use: Yes Alcohol type: beer Hx Substance Use: No Preferred Language: Citizen Of [place] Communication Ability: Effective [employer] [place] [facility] Required: No Beliefs That Will Affect Care: None marital status: Current Living Situation: Spouse current occupational status: employed current occupation: [employer] How many Children do You have: 2 Other Information That Helps Us Care for You: No Feels Safe at Home: Yes caffeine: Yes Assistive Devices: Denture - Upper, Denture - Lower and Glasses Allergies Allergies Allergy/AdvReac Type Severity Reaction Status Date / Time No Known Allergies Allergy Mild Verified 02/14/21 13:32 Home Meds Home Medications Medication Instructions Recorded Confirmed lisinopril 10 mg tablet 10 mg PO QAM tab 03/07/21 03/30/21 Previous Rx's Medication Instructions Recorded atorvastatin 40 mg PO DAILY 30 Days #30 tab 02/01/21 carvedilol 12.5 mg PO BID #30 tab 02/01/21 pantoprazole [Protonix] 40 mg PO DAILY 28 Days #28 tab 02/01/21 tramadol 50 mg tablet 50 mg PO TID PRN #30 tab 02/08/21 collagenase clostridium histo. 250 1 applic TOPICAL DAILY 30 Days #30 02/23/21 unit/gram topical ointment g clopidogrel 75 mg PO QAM #30 tab 03/24/21 Results & Data (ED) Vital Signs Vital Signs - 24 hr 03/29/21 23:45 03/29/21 23:47 03/29/21 23:49 Temperature 36.4 C L Temperature Source Oral Pulse Rate 79 83 80 Pulse Rate [Right Radial] Pulse Rate from SpO2 Sensor 80 80 Respiratory Rate 19 22 19 Respiratory Effort / Characteristics Non-Labored Respiratory Depth Normal Blood Pressure 143/71 H 143/71 H Blood Pressure [Left Arm] Blood Pressure Mean 95 95 Blood Pressure Mean [Left Arm] Pulse Oximetry 96 95 95 Oxygen Delivery Method Room Air Sepsis Recent Fever Within 48 Hours No Sepsis New/Unexplained Change in Mental Status No Sepsis Action Taken by Nursing No Action Required 03/29/21 23:50 03/30/21 00:00 03/30/21 00:10 Temperature Temperature Source Pulse Rate 76 81 80 Pulse Rate [Right Radial] Pulse Rate from SpO2 Sensor 77 81 80 Respiratory Rate 20 15 15 Respiratory Effort / Characteristics Respiratory Depth Blood Pressure Blood Pressure [Left Arm] Blood Pressure Mean Blood Pressure Mean [Left Arm] Pulse Oximetry 96 94 95 Oxygen Delivery Method Sepsis Recent Fever Within 48 Hours Sepsis New/Unexplained Change in Mental Status Sepsis Action Taken by Nursing 03/30/21 00:11 03/30/21 00:20 03/30/21 00:41 Temperature Temperature Source Pulse Rate 75 85 Pulse Rate [Right Radial] 80 Pulse Rate from SpO2 Sensor 76 Respiratory Rate 20 14 16 Respiratory Effort / Characteristics Non-Labored Spontaneous Respiratory Depth Blood Pressure Blood Pressure [Left Arm] Blood Pressure Mean Blood Pressure Mean [Left Arm] Pulse Oximetry 95 100 Oxygen Delivery Method Room Air Sepsis Recent Fever Within 48 Hours Sepsis New/Unexplained Change in Mental Status Sepsis Action Taken by Nursing 03/30/21 00:42 03/30/21 00:50 03/30/21 01:00 Temperature Temperature Source Pulse Rate 85 83 80 Pulse Rate [Right Radial] Pulse Rate from SpO2 Sensor Respiratory Rate 18 21 13 Respiratory Effort / Characteristics Respiratory Depth Blood Pressure 146/64 H 162/74 H Blood Pressure [Left Arm] Blood Pressure Mean 91 103 Blood Pressure Mean [Left Arm] Pulse Oximetry Oxygen Delivery Method Sepsis Recent Fever Within 48 Hours Sepsis New/Unexplained Change in Mental Status Sepsis Action Taken by Nursing 03/30/21 01:01 03/30/21 01:10 03/30/21 01:20 Temperature Temperature Source Pulse Rate 82 87 78 Pulse Rate [Right Radial] Pulse Rate from SpO2 Sensor Respiratory Rate 16 15 15 Respiratory Effort / Characteristics Respiratory Depth Blood Pressure Blood Pressure [Left Arm] Blood Pressure Mean Blood Pressure Mean [Left Arm] Pulse Oximetry Oxygen Delivery Method Sepsis Recent Fever Within 48 Hours Sepsis New/Unexplained Change in Mental Status Sepsis Action Taken by Nursing 03/30/21 01:38 03/30/21 01:40 03/30/21 01:41 Temperature Temperature Source Pulse Rate 89 91 H 83 Pulse Rate [Right Radial] Pulse Rate from SpO2 Sensor Respiratory Rate 17 29 H 18 Respiratory Effort / Characteristics Respiratory Depth Blood Pressure 164/86 H Blood Pressure [Left Arm] Blood Pressure Mean 112 Blood Pressure Mean [Left Arm] Pulse Oximetry Oxygen Delivery Method Sepsis Recent Fever Within 48 Hours Sepsis New/Unexplained Change in Mental Status Sepsis Action Taken by Nursing 03/30/21 01:50 03/30/21 02:00 03/30/21 02:01 Temperature Temperature Source Pulse Rate 88 75 77 Pulse Rate [Right Radial] Pulse Rate from SpO2 Sensor Respiratory Rate 22 15 15 Respiratory Effort / Characteristics Respiratory Depth Blood Pressure 158/76 H Blood Pressure [Left Arm] Blood Pressure Mean 103 Blood Pressure Mean [Left Arm] Pulse Oximetry Oxygen Delivery Method Sepsis Recent Fever Within 48 Hours Sepsis New/Unexplained Change in Mental Status Sepsis Action Taken by Nursing 03/30/21 02:10 03/30/21 02:20 03/30/21 02:30 Temperature Temperature Source Pulse Rate 83 85 89 Pulse Rate [Right Radial] Pulse Rate from SpO2 Sensor Respiratory Rate 17 16 14 Respiratory Effort / Characteristics Respiratory Depth Blood Pressure 160/82 H Blood Pressure [Left Arm] Blood Pressure Mean 108 Blood Pressure Mean [Left Arm] Pulse Oximetry Oxygen Delivery Method Sepsis Recent Fever Within 48 Hours Sepsis New/Unexplained Change in Mental Status Sepsis Action Taken by Nursing 03/30/21 02:31 03/30/21 02:40 03/30/21 02:50 Temperature Temperature Source Pulse Rate 91 H 95 H 89 Pulse Rate [Right Radial] Pulse Rate from SpO2 Sensor Respiratory Rate 17 21 18 Respiratory Effort / Characteristics Respiratory Depth Blood Pressure Blood Pressure [Left Arm] Blood Pressure Mean Blood Pressure Mean [Left Arm] Pulse Oximetry Oxygen Delivery Method Sepsis Recent Fever Within 48 Hours Sepsis New/Unexplained Change in Mental Status Sepsis Action Taken by Nursing 03/30/21 02:58 03/30/21 03:00 03/30/21 03:01 Temperature Temperature Source Pulse Rate 90 91 H Pulse Rate [Right Radial] 86 Pulse Rate from SpO2 Sensor 89 87 Respiratory Rate 16 22 25 H Respiratory Effort / Characteristics Respiratory Depth Blood Pressure 167/71 H Blood Pressure [Left Arm] 160/82 H Blood Pressure Mean 103 Blood Pressure Mean [Left Arm] 108 Pulse Oximetry 95 93 94 Oxygen Delivery Method Room Air Sepsis Recent Fever Within 48 Hours Sepsis New/Unexplained Change in Mental Status Sepsis Action Taken by Nursing 03/30/21 03:10 03/30/21 03:20 Temperature Temperature Source Pulse Rate 88 92 H Pulse Rate [Right Radial] Pulse Rate from SpO2 Sensor 89 90 Respiratory Rate 17 20 Respiratory Effort / Characteristics Respiratory Depth Blood Pressure Blood Pressure [Left Arm] Blood Pressure Mean Blood Pressure Mean [Left Arm] Pulse Oximetry 93 95 Oxygen Delivery Method Sepsis Recent Fever Within 48 Hours Sepsis New/Unexplained Change in Mental Status Sepsis Action Taken by Nursing Laboratory Data Result diagrams: 03/30/21 00:14 03/30/21 00:14 Lab Results 03/30/21 03/30/21 03/30/21 Range/Units 00:14 00:14 00:14 WBC 7.59 (4.8-10.8) K/uL RBC 3.75 L (4.2-5.4) M/uL Hgb 13.3 (12.0-16.0) g/dL Hct 38.6 (37-47) % MCV 102.9 H (80-100) fL MCH 35.5 H (25-34) pg MCHC 34.5 (32-36) g/dL RDW Std Deviation 54.9 H (36.4-46.3) fL RDW Coeff of Odette 14.5 (11.5-14.5) % Plt Count 233 (130-400) K/uL MPV 8.8 (7.4-10.4) fL Immature Gran % (Auto) 0.3 % Neut % (Auto) 68.3 % Lymph % (Auto) 18.4 % [place] % (Auto) 10.8 % Eos % (Auto) 1.7 % Baso % (Auto) 0.5 % Neut # (Auto) 5.18 (1.4-6.5) K/uL Lymph # (Auto) 1.40 (1.2-3.4) K/uL [place] # (Auto) 0.82 H (0.11-0.59) K/uL Eos # (Auto) 0.13 (0-0.5) K/uL Baso # (Auto) 0.04 (0-0.2) K/uL Immature Gran # (Auto) 0.02 (0.00-0.02) K/uL PT (9.0-12.0) Seconds INR (0.9-1.1) Sodium 134 L (136-145) mmol/L Potassium 3.6 (3.5-5.1) mmol/L Chloride 103 (98-107) mmol/L Carbon Dioxide 25 (21-32) mmol/L Anion Gap 7.0 (3-11) BUN 20 H (7-18) mg/dl Creatinine 0.67 (0.6-1.2) mg/dl Est Cr Clr Drug Dosing 62.4 ml/min Est GFR ( Amer) 108.4 ml/min Est GFR (Non-Af Amer) 93.5 ml/min BUN/Creatinine Ratio 30.3 H (10-20) Glucose 96 (70-99) mg/dl Lactate 1.2 (0.4-2.0) mmol/L Calcium 8.7 (8.5-10.1) mg/dl Magnesium 2.0 (1.8-2.4) mg/dl Total Bilirubin 0.3 (0.2-1) mg/dl Direct Bilirubin 0.1 (0-0.2) mg/dl AST 14 L (15-37) U/L ALT 18 (12-78) U/L Alkaline Phosphatase 86 (45-117) U/L Total Creatine Kinase 55 (26-192) U/L Troponin I < 0.015 (0-0.045) ng/ml NT-Pro-B Natriuret Pep 664 (0-900) pg/ml Total Protein 7.0 (6.4-8.2) gm/dl Albumin 3.6 (3.4-5.0) gm/dl Lipase 455 H (73-393) U/L Urine Color Urine Appearance (Clear) Urine pH (4.5-7.5) Ur Specific [place] (1.000-1.030) Urine Protein (Negative) Urine Glucose (UA) (Negative) Urine Ketones (Negative) Urine Blood (Negative) Urine Nitrite (Negative) Urine Bilirubin (Negative) Urine Urobilinogen (Negative) Ur Leukocyte Esterase (Negative) Ethyl Alcohol mg/dL (0-3) mg/dl COVID-19 Eval Order SARS-CoV-2 (PCR) (Negative) 03/30/21 03/30/21 03/30/21 Range/Units 00:14 00:14 00:21 WBC (4.8-10.8) K/uL RBC (4.2-5.4) M/uL Hgb (12.0-16.0) g/dL Hct (37-47) % MCV (80-100) fL MCH (25-34) pg MCHC (32-36) g/dL RDW Std Deviation (36.4-46.3) fL RDW Coeff of Odette (11.5-14.5) % Plt Count (130-400) K/uL MPV (7.4-10.4) fL Immature Gran % (Auto) % Neut % (Auto) % Lymph % (Auto) % [place] % (Auto) % Eos % (Auto) % Baso % (Auto) % Neut # (Auto) (1.4-6.5) K/uL Lymph # (Auto) (1.2-3.4) K/uL [place] # (Auto) (0.11-0.59) K/uL Eos # (Auto) (0-0.5) K/uL Baso # (Auto) (0-0.2) K/uL Immature Gran # (Auto) (0.00-0.02) K/uL PT 9.7 (9.0-12.0) Seconds INR 1.0 (0.9-1.1) Sodium (136-145) mmol/L Potassium (3.5-5.1) mmol/L Chloride (98-107) mmol/L Carbon Dioxide (21-32) mmol/L Anion Gap (3-11) BUN (7-18) mg/dl Creatinine (0.6-1.2) mg/dl Est Cr Clr Drug Dosing ml/min Est GFR ( Amer) ml/min Est GFR (Non-Af Amer) ml/min BUN/Creatinine Ratio (10-20) Glucose (70-99) mg/dl Lactate (0.4-2.0) mmol/L Calcium (8.5-10.1) mg/dl Magnesium (1.8-2.4) mg/dl Total Bilirubin (0.2-1) mg/dl Direct Bilirubin (0-0.2) mg/dl AST (15-37) U/L ALT (12-78) U/L Alkaline Phosphatase (45-117) U/L Total Creatine Kinase (26-192) U/L Troponin I (0-0.045) ng/ml NT-Pro-B Natriuret Pep (0-900) pg/ml Total Protein (6.4-8.2) gm/dl Albumin (3.4-5.0) gm/dl Lipase (73-393) U/L Urine Color Urine Appearance (Clear) Urine pH (4.5-7.5) Ur Specific [place] (1.000-1.030) Urine Protein (Negative) Urine Glucose (UA) (Negative) Urine Ketones (Negative) Urine Blood (Negative) Urine Nitrite (Negative) Urine Bilirubin (Negative) Urine Urobilinogen (Negative) Ur Leukocyte Esterase (Negative) Ethyl Alcohol mg/dL 96.0 H (0-3) mg/dl COVID-19 Eval Order Covid19 at [facility] SARS-CoV-2 (PCR) (Negative) 03/30/21 03/30/21 Range/Units 00:21 01:38 WBC (4.8-10.8) K/uL RBC (4.2-5.4) M/uL Hgb (12.0-16.0) g/dL Hct (37-47) % MCV (80-100) fL MCH (25-34) pg MCHC (32-36) g/dL RDW Std Deviation (36.4-46.3) fL RDW Coeff of Odette (11.5-14.5) % Plt Count (130-400) K/uL MPV (7.4-10.4) fL Immature Gran % (Auto) % Neut % (Auto) % Lymph % (Auto) % [place] % (Auto) % Eos % (Auto) % Baso % (Auto) % Neut # (Auto) (1.4-6.5) K/uL Lymph # (Auto) (1.2-3.4) K/uL [place] # (Auto) (0.11-0.59) K/uL Eos # (Auto) (0-0.5) K/uL Baso # (Auto) (0-0.2) K/uL Immature Gran # (Auto) (0.00-0.02) K/uL PT (9.0-12.0) Seconds INR (0.9-1.1) Sodium (136-145) mmol/L Potassium (3.5-5.1) mmol/L Chloride (98-107) mmol/L Carbon Dioxide (21-32) mmol/L Anion Gap (3-11) BUN (7-18) mg/dl Creatinine (0.6-1.2) mg/dl Est Cr Clr Drug Dosing ml/min Est GFR ( Amer) ml/min Est GFR (Non-Af Amer) ml/min BUN/Creatinine Ratio (10-20) Glucose (70-99) mg/dl Lactate (0.4-2.0) mmol/L Calcium (8.5-10.1) mg/dl Magnesium (1.8-2.4) mg/dl Total Bilirubin (0.2-1) mg/dl Direct Bilirubin (0-0.2) mg/dl AST (15-37) U/L ALT (12-78) U/L Alkaline Phosphatase (45-117) U/L Total Creatine Kinase (26-192) U/L Troponin I (0-0.045) ng/ml NT-Pro-B Natriuret Pep (0-900) pg/ml Total Protein (6.4-8.2) gm/dl Albumin (3.4-5.0) gm/dl Lipase (73-393) U/L Urine Color Yellow Urine Appearance Clear (Clear) Urine pH 6.0 (4.5-7.5) Ur Specific [place] 1.008 (1.000-1.030) Urine Protein Negative (Negative) Urine Glucose (UA) Negative (Negative) Urine Ketones Negative (Negative) Urine Blood Negative (Negative) Urine Nitrite Negative (Negative) Urine Bilirubin Negative (Negative) Urine Urobilinogen Negative (Negative) Ur Leukocyte Esterase Negative (Negative) Ethyl Alcohol mg/dL (0-3) mg/dl COVID-19 Eval Order SARS-CoV-2 (PCR) NEGATIVE (Negative) Administered Medications Multivitamins 10 ml/ Thiamine HCl 100 mg/ Folic Acid 1 mg/Sodium Chloride 1,011.2 mls @ 250 mls/hr IV .[id number] ONE Stop: 03/30/21 04:00 Last Admin: 03/30/21 00:53 Dose: 250 mls/hr Documented by: [id number] Doxycycline Hyclate 100 mg/ (Dextrose) 110 mls @ 50 mls/hr IV NOW STA Stop: 03/30/21 04:38 Last Admin: 03/30/21 03:24 Dose: 50 mls/hr Documented by: [id number] Discontinued Medications Acetaminophen (Acetaminophen 500 Mg Tab) 1,000 mg PO NOW STA Stop: 03/30/21 01:16 Last Admin: 03/30/21 01:31 Dose: 1,000 mg Documented by: [id number] Acetaminophen (Acetaminophen 500 Mg Tab) Confirm Administered Dose 1,000 mg .ROUTE .STK-MED ONE Stop: 03/30/21 01:18 Last Admin: 03/30/21 02:21 Dose: Not Given Documented by: [id number] Albuterol (Albut/Ipratrop 3mg/0.5mg Neb 3 Ml Vial) 3 ml NEB NOW STA Stop: 03/29/21 23:59 Last Admin: 03/30/21 00:11 Dose: 3 ml Documented by: [id number] Dexamethasone Sodium Phosphate (DexamethasonePf 10 Mg/Ml Vial) 10 mg IV NOW ONE Stop: 03/30/21 02:28 Last Admin: 03/30/21 03:24 Dose: 10 mg Documented by: [id number] Discharge Plan Visit Data Chief Complaint: Weakness Stated Complaint: WEAK/DIZZY/HEADACHE ED Provider: Marcos Esquivel Discharge Problem: Asthma exacerbation in COPD, COPD exacerbation, Dizziness, Alcohol intoxication Forms Stand Alone Forms: My [facility] Anyone Home Prescriptions Prescriptions: No Action Santyl 250 unit/gram ointment 1 applic topical DAILY 30 Days Qty: 30 RF: 1 lisinopril 10 mg tablet 10 mg PO QAM RF: 0 tramadol 50 mg tablet 50 mg PO TID PRN (Reason: pain) Qty: 30 RF: 0 pantoprazole [Protonix] 40 mg tablet,delayed release (DR/EC) 40 mg PO DAILY 28 Days Qty: 28 RF: 3 atorvastatin 40 mg tablet 40 mg PO DAILY 30 Days Qty: 30 RF: 2 carvedilol 12.5 mg Tablet 12.5 mg PO BID Qty: 30 RF: 1 clopidogrel 75 mg Tablet 75 mg PO QAM Qty: 30 RF: 3 Discharge Problem: Alcohol intoxication Qualifiers: Complication of substance-induced condition: uncomplicated Qualified Code(s): F10.920 - Alcohol use, unspecified with intoxication, uncomplicated
[2021-03-30 00:25] LABS: Basophils # (auto) 0.04 K/uL (0-0.2); Basophils % (auto) 0.5 %; Eosinophils # (auto) 0.13 K/uL (0-0.5); Eosinophils % (auto) 1.7 %; Hematocrit (blood only) 38.6 % (37-47); Hemoglobin 13.3 g/dL (12.0-16.0); Immature Granulocytes # (auto) 0.02 K/uL (0.00-0.02); Immature Granulocytes % (auto) 0.3 %; Lymphocytes % (auto) 18.4 %; Mean Corpuscular Hemoglobin 35.5 pg (25-34); Mean Corpuscular Hgb Conc 34.5 g/dL (32-36); Mean Corpuscular Volume 102.9 fL (80-100); Mean Platelet Volume 8.8 fL (7.4-10.4); Monocytes # (auto) 0.82 K/uL (0.11-0.59); Monocytes % (auto) 10.8 %; Neutrophils # (auto) 5.18 K/uL (1.4-6.5); Neutrophils % (auto) 68.3 %; Platelet Count 233 K/uL (130-400); RDW Coefficient of Variation 14.5 % (11.5-14.5); RDW Standard Deviation 54.9 fL (36.4-46.3); Red Blood Count 3.75 M/uL (4.2-5.4); White Blood Count 7.59 K/uL (4.8-10.8)
[2021-03-30 00:37] LABS: Prothrombin Time 9.7 Seconds (9.0-12.0)
[2021-03-30 00:42] LABS: Alanine Aminotransferase 18 U/L (12-78); Albumin Level 3.6 gm/dl (3.4-5.0); Aspartate Aminotransferase 14 U/L (15-37); BUN Creatinine Ratio 30.3 (10-20); Bilirubin Direct 0.1 mg/dl (0-0.2); Blood Urea Nitrogen 20 mg/dl (7-18); Calcium 8.7 mg/dl (8.5-10.1); Carbon Dioxide 25 mmol/L (21-32); Chloride 103 mmol/L (98-107); Creatinine Clr Calc Pharmacy 62.4 ml/min; Est GFR (African American) 108.4 ml/min; Est GFR (Non-African American) 93.5 ml/min; Glucose 96 mg/dl (70-99); Lipase 455 U/L (73-393); Potassium 3.6 mmol/L (3.5-5.1); Sodium 134 mmol/L (136-145)
[2021-03-30 00:45] LABS: Alkaline Phosphatase 86 U/L (45-117); Bilirubin,Total 0.3 mg/dl (0.2-1); Creatine Kinase 55 U/L (26-192); NT Pro B Type Natriuretic Pept 664 pg/ml (0-900); Troponin I < 0.015 ng/ml (0-0.045)
[2021-03-30] MEDS ORDERED: ACETAMINOPHEN 500 MG TAB PO STA (01:15)
[2021-03-30] MEDS ORDERED: ACETAMINOPHEN 500 MG TAB ONE (01:17)
[2021-03-30 01:51] LABS: Appearance Urine Clear (Clear); Bilirubin Urine Negative (Negative); Blood Urine Negative (Negative); Color Urine Yellow; Glucose Urine UA Negative (Negative); Ketones Urine Negative (Negative); Leukocyte Esterase Urine Negative (Negative); Nitrite Urine Negative (Negative); Protein Urine Negative (Negative); Specific Gravity Urine 1.008 (1.000-1.030); Urobilinogen Urine Negative (Negative)
[2021-03-30] MEDS ORDERED: dexAMETHasone**PF** 10 MG/ML VIAL IV ONE (02:27)
[2021-03-30] MEDS ORDERED: DOXYCYCLINE HYCLATE 100 MG in DEXTROSE 5% 100 ML IV STA (02:27)
--- NOTE | 2021-03-30 03:21 | History & Physical Report ---
Date of Service March 30, 2021 Assessment & Plan (1) Dizziness: Etiology unclear. No neurological deficits on exam -Neuro checks -Check orthostatic VS -Telemetry monitoring -Ambulatory trial -NSS at 80mL/hr x 1 liter Present on Admission?: Yes (2) COPD (chronic obstructive pulmonary disease): No cough, SOB or hypoxia -DuoNeb q 4 hours -Albuterol q 2 hours PRN -Nicotine patch -Smoking cessation counseling Present on Admission?: Yes (3) Hypertension: Elevated BP -Continue Lisinopril, Carvedilol -Continue to monitor Present on Admission?: Yes (4) Peripheral artery disease: Chronic -Continue Atorvastatin, Plavix F/E/N - NSS at 80mL/hr x 1 liter, electrolytes WNL, Heart healthy diet as tolerated Ppx - Continue Protonix Code - Full Dispo - Observation to medical with telemetry History of Present Illness Chief Complaint: dizziness Primary Care Provider: Roland Queen DO Daniela Bellamy is a 65yo female with history of HTN, PAD, COPD presenting with several days of intermittent dizziness and diffuse weakness. Patient recently had stent placement in her RLE. She returned to work yesterday after several days off. She came home from work and had a couple beers and was getting ready for bed. Around 21:30 she became very lightheaded and thought that she was going to pass out. Also with complaint of headache and body aches. She denies visual disturbance or focal numbness/tingling/weakness. No complaint of chest pain, palpitations, nausea, vomiting, abdominal pain. No additional complatints at this time. ER Course: Tylenol, Albuterol, Dexamethasone, Doxycycline, Banana bag Allergies Allergy/AdvReac Type Severity Reaction Status Date / Time No Known Allergies Allergy Mild Verified 02/14/21 13:32 Home Medications Medication Instructions Recorded Confirmed Type atorvastatin 40 mg PO DAILY 30 Days #30 tab 02/01/21 03/30/21 Rx carvedilol 12.5 mg PO BID #30 tab 02/01/21 03/30/21 Rx pantoprazole [Protonix] 40 mg PO DAILY 28 Days #28 tab 02/01/21 03/30/21 Rx tramadol 50 mg tablet 50 mg PO TID PRN #30 tab 02/08/21 03/30/21 Rx collagenase clostridium histo. 250 1 applic TOPICAL DAILY 30 Days #30 02/23/21 03/30/21 Rx unit/gram topical ointment g lisinopril 10 mg tablet 10 mg PO QAM tab 03/07/21 03/30/21 History clopidogrel 75 mg PO QAM #30 tab 03/24/21 03/30/21 Rx Past Med/Surg History Medical History COPD (chronic obstructive pulmonary disease) Gastric ulcer Hypertensive urgency Hypokalemia Peripheral artery disease Surgical History H/O exploratory laparotomy (01/22/21) Exploratory laparotomy, oversew perforated duodenal ulcer, abdominal washout. Dr. Craig 01/22/2021 H/O tubal ligation Social History Smoking Status: Current every day smoker Tobacco Type: Cigarettes Age Started Using Tobacco: 27; Cigarettes Per Day: 20; Do You Dip or Chew Tobacco: No; Hx Alcohol Use: Yes Alcohol type: beer Hx Substance Use: No Preferred Language: Irish Communication Ability: Effective Networking Administrator Required: No Beliefs That Will Affect Care: None marital status: Current Living Situation: Spouse current occupational status: employed current occupation: [employer] How many Children do You have: 2 Other Information That Helps Us Care for You: No Feels Safe at Home: Yes caffeine: Yes Assistive Devices: Denture - Upper, Denture - Lower and Glasses Review of Systems Review of Systems: All systems reviewed & are unremarkable except as noted in HPI & below Physical Exam Physical Exam: General: patient resting comfortably, NAD, non-toxic in appearance, AA&O x 4 Skin: warm, dry, intact, no rashes or lesions HEENT: NC/AT, PERRL, EOMI, anicteric sclera, conjunctiva without injection, external ear normal to inspection and nontender, nares patent, moist mucus membranes, dentition intact, no oropharyngeal lesions, neck supple, trachea midline, no LAD, no thyromegaly, no JVD Heart: +S1/S2, regular, no m/r/g Lungs: equal air entry bilaterally, diffuse end-expiratory wheezing Abd: +BS, soft, NT/ND, no masses/organomegaly/ascites Ext: warm, 2+ pulses in UE/LE bilaterally, no clubbing/cyanosis or edema, dressing in place R foot Neuro: nonfocal, patient AA&O x 4, speech intact, no facial droop, moving all extremities on command with equal strength 5/5 Results & Data Results & Data ([facility]) Vital Signs (Past 12 Hours) Vital Signs Temp Pulse Pulse Resp BP Pulse Ox 03/30/21 01:38 89 17 03/30/21 01:20 78 15 03/30/21 01:10 87 15 03/30/21 01:01 82 16 03/30/21 01:00 80 13 162/74 H 03/30/21 00:50 83 21 03/30/21 00:42 85 18 146/64 H 03/30/21 00:41 85 16 03/30/21 00:20 75 14 100 03/30/21 00:11 80 20 95 03/30/21 00:10 80 15 95 03/30/21 00:00 81 15 94 03/29/21 23:50 76 20 96 03/29/21 23:49 36.4 C L 80 19 143/71 H 95 03/29/21 23:47 83 22 95 03/29/21 23:45 79 19 143/71 H 96 Laboratory Results Laboratory Results WBC 7.59 K/uL (4.8-10.8) 03/30/21 00:14 RBC 3.75 M/uL (4.2-5.4) L 03/30/21 00:14 Hgb 13.3 g/dL (12.0-16.0) 03/30/21 00:14 Hct 38.6 % (37-47) 03/30/21 00:14 MCV 102.9 fL (80-100) H 03/30/21 00:14 MCH 35.5 pg (25-34) H 03/30/21 00:14 MCHC 34.5 g/dL (32-36) 03/30/21 00:14 RDW Std Deviation 54.9 fL (36.4-46.3) H 03/30/21 00:14 RDW Coeff of Odette 14.5 % (11.5-14.5) 03/30/21 00:14 Plt Count 233 K/uL (130-400) 03/30/21 00:14 MPV 8.8 fL (7.4-10.4) 03/30/21 00:14 Immature Gran % (Auto) 0.3 % 03/30/21 00:14 Neut % (Auto) 68.3 % 03/30/21 00:14 Lymph % (Auto) 18.4 % 03/30/21 00:14 Mathews % (Auto) 10.8 % 03/30/21 00:14 Eos % (Auto) 1.7 % 03/30/21 00:14 Baso % (Auto) 0.5 % 03/30/21 00:14 Neut # (Auto) 5.18 K/uL (1.4-6.5) 03/30/21 00:14 Lymph # (Auto) 1.40 K/uL (1.2-3.4) 03/30/21 00:14 Mathews # (Auto) 0.82 K/uL (0.11-0.59) H 03/30/21 00:14 Eos # (Auto) 0.13 K/uL (0-0.5) 03/30/21 00:14 Baso # (Auto) 0.04 K/uL (0-0.2) 03/30/21 00:14 Immature Gran # (Auto) 0.02 K/uL (0.00-0.02) 03/30/21 00:14 PT 9.7 Seconds (9.0-12.0) 03/30/21 00:14 INR 1.0 (0.9-1.1) 03/30/21 00:14 Sodium 134 mmol/L (136-145) L 03/30/21 00:14 Potassium 3.6 mmol/L (3.5-5.1) 03/30/21 00:14 Chloride 103 mmol/L (98-107) 03/30/21 00:14 Carbon Dioxide 25 mmol/L (21-32) 03/30/21 00:14 Anion Gap 7.0 (3-11) 03/30/21 00:14 BUN 20 mg/dl (7-18) H 03/30/21 00:14 Creatinine 0.67 mg/dl (0.6-1.2) 03/30/21 00:14 Est Cr Clr Drug Dosing 62.4 ml/min 03/30/21 00:14 Est GFR ( Amer) 108.4 ml/min 03/30/21 00:14 Est GFR (Non-Af Amer) 93.5 ml/min 03/30/21 00:14 BUN/Creatinine Ratio 30.3 (10-20) H 03/30/21 00:14 Glucose 96 mg/dl (70-99) 03/30/21 00:14 Lactate 1.2 mmol/L (0.4-2.0) 03/30/21 00:14 Calcium 8.7 mg/dl (8.5-10.1) 03/30/21 00:14 Magnesium 2.0 mg/dl (1.8-2.4) 03/30/21 00:14 Total Bilirubin 0.3 mg/dl (0.2-1) 03/30/21 00:14 Direct Bilirubin 0.1 mg/dl (0-0.2) 03/30/21 00:14 AST 14 U/L (15-37) L 03/30/21 00:14 ALT 18 U/L (12-78) 03/30/21 00:14 Alkaline Phosphatase 86 U/L (45-117) 03/30/21 00:14 Total Creatine Kinase 55 U/L (26-192) 03/30/21 00:14 Troponin I < 0.015 ng/ml (0-0.045) 03/30/21 00:14 NT-Pro-B Natriuret Pep 664 pg/ml (0-900) 03/30/21 00:14 Total Protein 7.0 gm/dl (6.4-8.2) 03/30/21 00:14 Albumin 3.6 gm/dl (3.4-5.0) 03/30/21 00:14 Lipase 455 U/L (73-393) H 03/30/21 00:14 Urine Color Yellow 03/30/21 01:38 Urine Appearance Clear (Clear) 03/30/21 01:38 Urine pH 6.0 (4.5-7.5) 03/30/21 01:38 Ur Specific [place] 1.008 (1.000-1.030) 03/30/21 01:38 Urine Protein Negative (Negative) 03/30/21 01:38 Urine Glucose (UA) Negative (Negative) 03/30/21 01:38 Urine Ketones Negative (Negative) 03/30/21 01:38 Urine Blood Negative (Negative) 03/30/21 01:38 Urine Nitrite Negative (Negative) 03/30/21 01:38 Urine Bilirubin Negative (Negative) 03/30/21 01:38 Urine Urobilinogen Negative (Negative) 03/30/21 01:38 Ur Leukocyte Esterase Negative (Negative) 03/30/21 01:38 Ethyl Alcohol mg/dL 96.0 mg/dl (0-3) H 03/30/21 00:14 COVID-19 Eval Order Covid19 at [facility] 03/30/21 00:21 SARS-CoV-2 (PCR) NEGATIVE (Negative) 03/30/21 00:21 PG Care Time/CCT Total # of Minutes Spent Total Time Spent with Patient: Total time spent is greater than 50% in coordination of care (as documented) at patient's floor/unit and/or counseling patient: Coding Level of Care Code 82675 OBS Care - Level 3 Diagnoses Dizziness R42 COPD (chronic obstructive pulmonary disease) J44.9 COPD type: unspecified COPD Hypertension I10 Hypertension type: essential hypertension Peripheral artery disease I73.9 (1) COPD (chronic obstructive pulmonary disease) COPD type: unspecified COPD Qualified Code(s): J44.9 - Chronic obstructive pulmonary disease, unspecified (2) Hypertension Hypertension type: essential hypertension Qualified Code(s): I10 - Essential (primary) hypertension
[2021-03-30] MEDS ORDERED: traMADol HCL 50 MG TABLET PO PRN (04:10)
[2021-03-30] MEDS ORDERED: ONDANSETRON INJ 2 MG/ML 2 ML VIAL IV PRN (04:10)
[2021-03-30] MEDS ORDERED: SODIUM CHLORIDE 0.9% 1000ML 1,000 ML IV SCH (04:10)
[2021-03-30] MEDS ORDERED: ALBUTEROL 0.083% NEBU SOLN 3 ML VIAL NEB PRN (04:15)
--- NOTE | 2021-03-30 06:53 | CT Scan Report ---
CT head/brain wo con CLINICAL HISTORY: Headache, lightheadedness. COMPARISON STUDY: No previous studies for comparison. TECHNIQUE: Axial CT of the brain is performed from the vertex to the skull base. IV contrast was not administered for this examination. A dose lowering technique was utilized adhering to the principles of ALARA. CT DOSE: 1074.96 mGy.cm FINDINGS: No intra or extra-axial mass lesions are visualized. There is no CT evidence of acute cortical infarc tion. There is no evidence of midline shift. There is no acute hemorrhage. No calvarial fractures ar e visualized. There are minor white matter hypodensities likely on a small vessel basis. There is no evidence of acute sinusitis IMPRESSION: No acute intracranial findings ACT 112: Negative or not required by law. Electronically signed by: Georgi Ritchie M.D. 03/30/2021 6:52 AM
[2021-03-30] MEDS: ALBUT/IPRATROP 3MG/0.5MG NEB 3 ML VIAL NEB SCH ×2 (07:16→11:26)
[2021-03-30] MEDS: lisinopril 10 MG TAB PO SCH (08:28)
[2021-03-30] MEDS: ATORVASTATIN 40 MG TAB PO SCH (08:28)
[2021-03-30] MEDS: CLOPIDOGREL BISULFATE 75 MG TAB PO SCH (08:28)
[2021-03-30] MEDS: PANTOprazole 40 MG TAB PO SCH (08:28)
[2021-03-30] MEDS: NICOTINE 21 MG/24 HR TDSY TD SCH ×2 (08:29→16:25)
[2021-03-30] MEDS: COLLAGENASE OINT 30 GM TUBE TOP SCH (08:29)
[2021-03-30] MEDS: carvediloL 12.5 MG TAB PO SCH ×2 (08:29→20:28)
--- NOTE | 2021-03-30 08:41 | XRay Report ---
XR chest 1V portable CLINICAL HISTORY: weakness COMPARISON STUDY: 01/24/2021 FINDINGS: The heart is mildly enlarged. There is pulmonary emphysema. There is no overt failure. Ther e is no focal pulmonary consolidation. There are no significant pleural effusions.[ IMPRESSION: No active disease in the chest. ACT 112: Negative or not required by law. Electronically signed by: Georgi Ritchie M.D. 03/30/2021 8:40 AM
--- NOTE | 2021-03-30 08:53 | Electrocardiogram Report ---
Test Reason : Blood Pressure : / mmHG Vent. Rate : 080 BPM Atrial Rate : 080 BPM P-R Int : 160 ms QRS Dur : 100 ms QT Int : 390 ms P-R-T Axes : 072 077 086 degrees QTc Int : 449 ms Normal sinus rhythm Normal ECG When compared with ECG of 24-MAR-2021 14:30, No significant change was found Confirmed by Gregor Brand ([id number]) on 03/30/2021 8:53:07 AM Referred By: REFERRED SELF Confirmed By:Gregor Brand
[2021-03-30] MEDS: ACETAMINOPHEN 325 MG TAB PO PRN (10:47)
[2021-03-30] MEDS ORDERED: LORazepam 1 MG/2 ML VIAL IV PRN (11:16)
[2021-03-30] MEDS ORDERED: LORazepam 1 MG TAB PO PRN (11:16)
[2021-03-30] MEDS: THIAMINE HCL 100 MG TAB PO SCH ×2 (12:07→20:28)
[2021-03-30] MEDS: FOLIC ACID 1 MG TAB PO SCH (12:07)
[2021-03-30] MEDS ORDERED: ALBUT/IPRATROP 3MG/0.5MG NEB 3 ML VIAL NEB PRN (13:57)
[2021-03-30] MEDS ORDERED: SODIUM CHLORIDE 0.9% 500 ML IV SCH (17:00)
[2021-03-30] MEDS ORDERED: OPTIRAY 350 500ml IV ONE (19:24)
--- NOTE | 2021-03-30 19:50 | CT Scan Report ---
CT ANGIOGRAM OF THE BRAIN; CT ANGIOGRAM OF THE NECK CLINICAL HISTORY: Dizziness. Atherosclerotic disease. COMPARISON STUDY: Unenhanced CT of the brain performed the same day 03/30/2021. TECHNIQUE: Following the IV administration of 108 of Optiray 350, CT angiogram of the head and neck w as performed from the aortic arch to the vertex. Images are reviewed in the axial, sagittal, and dilan nal planes. 3-D MIPS images are created and assessed. IV contrast was administered without complicati on. All measurements were calculated based on NASCET criteria. A dose lowering technique was utilize d adhering to the principles of ALARA. CT DOSE: 469.51 mGy.cm FINDINGS: Brain parenchyma: The brain parenchyma is normal in appearance. There is no hemorrhage, mass effect, or evidence of acute territorial ischemia by CT criteria. There is no evidence of enhancing mass lesi on on the angiogram phase images. The ventricles, sulci, and cisterns are normal in configuration. Gr ay-white matter differentiation is preserved. No extra-axial fluid collection is seen. Thoracic aorta: There is atherosclerotic calcification of the thoracic aorta. Visualized portions of the thoracic aorta are normal in caliber. The aortic arch demonstrates standard 3-vessel anatomy. Right carotid arterial system: The right common carotid artery is widely patent. There is high-grade stenosis (greater than 90%) of the proximal right internal carotid artery. This extends approximately 1 cm in length and is located just above the carotid bifurcation. The mid to distal internal carotid artery is widely patent. There is also high-grade stenosis of the origin of the right external carot id artery. Left carotid arterial system: There is atherosclerotic plaque and irregularity throughout the left co mmon carotid artery, with less than 50% luminal narrowing distally. There is advanced atherosclerotic plaque of the carotid bulb with approximate 60% focal stenosis of the proximal left internal carotid artery seen on axial image #232. This is located approximately 1 cm above the carotid bifurcation. T he mid to distal left internal carotid artery is widely patent. There is only mild stenosis at the or igin of the left external carotid artery. Vertebral arteries: The vertebral arteries are widely patent bilaterally and codominant. Subclavian arteries: Widely patent bilaterally. Intracranial vasculature: The grayling of [place] is developmentally complete. Atherosclerotic calcifica tion is noted in the cavernous carotid arteries. The internal carotid arteries are patent at the skul l base, as are the anterior and middle cerebral arteries bilaterally. The vertebrobasilar system and posterior cerebral arteries are widely patent. The vertebral arteries are codominant. There is no ane urysm, high-grade stenosis, or focal vessel cut off seen throughout the intracranial circulation. Jugular veins: Patent bilaterally. Dural sinuses: Patent. Lung apices: Emphysematous change is noted. Partially visualized upper lobe lung parenchyma is otherw ise clear. Soft tissues: The visualized pharyngeal soft tissues are normal in appearance noting angiographic pha se technique. The oropharyngeal airway appears widely patent. The salivary and thyroid glands are nor mal in appearance. No cervical lymphadenopathy is seen. Skeletal structures: The skeletal structures are osteopenic. The calvarium appears intact. The cervic al spine is maintained noting multilevel spondylosis. No lytic or blastic lesion is seen. Orbits: The bony orbits are intact. Orbital contents are normal as visualized. Sinuses and mastoids: The paranasal sinuses are clear. The mastoid air cells are well pneumatized. IMPRESSION: 1. There is no evidence of hemorrhage, mass effect, or acute territorial ischemia by CT criteria noti ng angiographic phase technique. 2. Unremarkable CT angiogram of the brain. 3. There is focal high-grade stenosis of the proximal right internal carotid artery with near-complet e occlusion (greater than 90% luminal narrowing). 4. There is approximately 60% focal stenosis of the proximal left internal carotid artery. 5. There is high-grade stenosis at the origin of the right external carotid artery. ACT 112: Negative or not required by law. Electronically signed by: Dae Quintero M.D. 03/30/2021 7:48 PM
--- NOTE | 2021-03-30 20:21 | Hospitalist Progress Note ---
Date of Service March 30, 2021 Assessment & Plan (1) Visual changes: She is a poor historian but mentions discrete episodes of visual change when she becomes "dizzy." She has had recurrent episodes of such of late - enough to prompt her to schedule a visit with her eye physician. She doesn't necessarily describe monocular visual loss, however. [id number] - given the severe right ICA stenosis - vascular surgery has been consulted for management. MRI brain ordered to exclude subacute stroke(s). Does need dilated eye exam with local eye provider after discharge. (2) Dizziness: Discrete episodes at home. Frequent. Not vertigo. Cannot exclude vertebrobasilar insufficiency attacks however. Orthostatic BPs here at [facility] NEGAT[facility]. Dizziness improved today with gentle fluids since ER presentation. She is not hypoxic with walking excluding that as an etiology. Given CVA risk factors, newly-found ICA stenosis, etc -- check MRI, r/o subacute stroke. (3) Carotid artery stenosis: RIGHT - severe/high-grade - >90% LEFT - moderate, 60% Given visual changes, dizziness, etc -- vascular consult in am. Check lipids in am - cont lipitor in meantime. Continue plavix. Again would not overtreat BPs at this time. (4) Near syncope: Some of her dizzy spells lead to near-syncope but she has not actually had full syncope at home. See above. (5) Alcohol abuse: Evidence of etoh in her system at time of presentation yesterday. Readily admits to daily etoh consumption. At risk of withdrawal. Place on withdrawal precautions/protocol with ativan prn. Thiamine 200mg BID Folic acid 1mg daily low threshold for gabapentin vs phenobarbital prophy (6) COPD (chronic obstructive pulmonary disease): Was treated for COPD exacerbation in ER with nebs, steroids, and dose of abx. However, during my visit with her today - although she c/o cough/wheeze - she is not having purulent sputum or dyspnea at this time. Defer on additional abx/steroids for now. Treat symptoms with nebs/bronchodilators prn. (7) Hypertension: Continue Lisinopril, Carvedilol. In light of newly-discovered critical/severe ICA stenosis on right would NOT overtreat BP at this time. CT abd/pelvis on 01/22 demonstrated severe right-sided renal artery stenosis which could be contributing heavily to her uncontrolled HTN. (8) Peripheral artery disease: Severe, as noted by 01/22/21 CT abd/pelvis showing - * right renal artery severe stenosis * b/l iliac artery stenosis * 16mm x 7mm sacular aneurysm of infrarenal abdominal aorta And now the right-sided high-grade ICA stenosis on right She is s/p RLE arteriogram with intervention by Dr Jony Dias on 03/24/21. She underwent such due to ongoing issues with ischemic ulcers to her right foot. Follows with [facility] for such. 03/24/21 arteriogram report - 1. Right lower extremity --diffuse mid/distal SFA up to 60% (30 mmHg pullback gradient), single-vessel runoff to the foot via CIVIL DESIGNER. CIVIL DESIGNER with short occlusion at the level of the ankle with brisk collaterals to plantar arteries. DPA occluded. 2. Successful angioplasty of mid to distal SFA with single drug-eluting balloon (5 x 220 mm Lutonix). 3. Angioplasty of posterior tibial after transient acute occlusion in mid segment with reestablished flow. 4. Attempted angioplasty to anterior tibial but unable to cross proximal DPA occlusion. (9) Tobacco dependence: Nicoderm patch 21mg/day. [employer] Of [employer] Services to quit. (10) Duodenal ulcer with perforation: s/p oversew and repair of duodenal perforation on 01/22/[address] Betito Craig. Suspect she developed such due to chronic etoh abuse. Cont PPI. (11) Renal mass: Left. Seen on CT abd/pelv on 01/22/21. Given extensive smoking history needs f/u with urology for such. Worrisome for RCC. (12) Renal artery stenosis: Right, as seen on CT a/p on 01/22/21. This could be playing a role in her very severe HTN. Dr Baker to see for ICA stenosis tomorrow. The MIAN can be addressed down the line. (13) Ischemic ulcer of right foot: x 3; see wound care clinic visit note from 03/16/21. Cultures with coag neg staph and staph aureus over the last few months. Continue local wound care. (14) Complex care coordination: 60 min today spent with examining the pt, reviewing old records, reviewing recent records, coordinating consult w/ vascular surg, obtaining new imaging, etc. this is separate from admission H/P as performed by Dr Em Mireles Admission and Anticipated Discharge Date Admission Date: March 30, 2021 Subjective tele stable overnight/since admission during the visit the patient reports she feels better overall the dizziness is improved denies any vertigo dizzy spells present for at least 1-2 weeks severe just prior to ER presentation associated with blurry vision/visual changes dizzy spells can occur at rest, but are also precipitated by standing and walking no arm claudication with activity of arms no true visual field cuts she relates her medical history from the last few months including surgery for perforated duodenal ulcer in 12/2020, recent arteriogram for right foot ischemia (Dr Dias), etc Review of Systems Respiratory: + cough, + dyspnea on exertion (Mild) and + wheezing Cardiovascular: no chest pain Gastrointestinal: no abdominal pain Musculoskeletal: pain in right foot where ulcers are located Physical Exam Constitutional: + thin and + frail appearing; no acute distress and no altered mental status Eyes: PERRL; no nystagmus ENMT: external ear and nose normal, oropharynx normal Neck: BRUIT present, right. None on left. Respiratory: no respiratory distress Auscultation: + wheezes (Diffuse b/l ) Cardiovascular: Rate/Rhythm: regular rate and regular rhythm Heart Sounds: normal S1, normal S2 and + murmur Vessels: + carotid bruit (RIGHT) and popliteal pulses present; no JVD, + posterior tibial pulses abnormal and + dorsalis pedis pulses abnormal Extremities: no edema Gastrointestinal (Abdomen): normal bowel sounds, soft, nontender, no hepatosplenomegaly Skin: right foot dressings intact Neurologic: moves all extremities; no focal motor deficits Speech / Cognition: normal speech Psychiatric: A+Ox3, euthymic affect Results & Data Results & Data ([facility]) Vital Signs (Past 12 Hours) Vital Signs Temp Pulse Pulse Resp BP BP Pulse Ox 03/30/21 19:19 36.9 C 80 16 188/79 H 95 03/30/21 17:27 105 H 20 96 03/30/21 14:59 37 C 74 18 164/74 H 97 03/30/21 14:25 79 03/30/21 12:55 36.8 C 89 18 157/70 H 92 03/30/21 11:30 37.1 C 77 18 185/76 H 95 03/30/21 10:48 36.8 C 82 18 181/70 H 93 Pulse Ox 03/30/21 19:19 03/30/21 17:27 96 03/30/21 14:59 03/30/21 14:25 03/30/21 12:55 03/30/21 11:30 03/30/21 10:48 Laboratory Results Labs 03/30/21 03/30/21 03/30/21 00:14 00:14 00:14 WBC 7.59 RBC 3.75 L Hgb 13.3 Hct 38.6 MCV 102.9 H MCH 35.5 H MCHC 34.5 RDW Std Deviation 54.9 H RDW Coeff of Odette 14.5 Plt Count 233 MPV 8.8 Immature Gran % (Auto) 0.3 Neut % (Auto) 68.3 Lymph % (Auto) 18.4 Livingston % (Auto) 10.8 Eos % (Auto) 1.7 Baso % (Auto) 0.5 Neut # (Auto) 5.18 Lymph # (Auto) 1.40 Livingston # (Auto) 0.82 H Eos # (Auto) 0.13 Baso # (Auto) 0.04 Immature Gran # (Auto) 0.02 PT INR Sodium 134 L Potassium 3.6 Chloride 103 Carbon Dioxide 25 Anion Gap 7.0 BUN 20 H Creatinine 0.67 Est Cr Clr Drug Dosing 62.4 Est GFR ( Amer) 108.4 Est GFR (Non-Af Amer) 93.5 BUN/Creatinine Ratio 30.3 H Glucose 96 Lactate 1.2 Calcium 8.7 Magnesium 2.0 Total Bilirubin 0.3 Direct Bilirubin 0.1 AST 14 L ALT 18 Alkaline Phosphatase 86 Total Creatine Kinase 55 Troponin I < 0.015 NT-Pro-B Natriuret Pep 664 Total Protein 7.0 Albumin 3.6 Lipase 455 H Urine Color Urine Appearance Urine pH Ur Specific Pansey Urine Protein Urine Glucose (UA) Urine Ketones Urine Blood Urine Nitrite Urine Bilirubin Urine Urobilinogen Ur Leukocyte Esterase Ethyl Alcohol mg/dL COVID-19 Eval Order SARS-CoV-2 (PCR) 03/30/21 03/30/21 03/30/21 00:14 00:14 00:21 WBC RBC Hgb Hct MCV MCH MCHC RDW Std Deviation RDW Coeff of Odette Plt Count MPV Immature Gran % (Auto) Neut % (Auto) Lymph % (Auto) Livingston % (Auto) Eos % (Auto) Baso % (Auto) Neut # (Auto) Lymph # (Auto) Livingston # (Auto) Eos # (Auto) Baso # (Auto) Immature Gran # (Auto) PT 9.7 INR 1.0 Sodium Potassium Chloride Carbon Dioxide Anion Gap BUN Creatinine Est Cr Clr Drug Dosing Est GFR ( Amer) Est GFR (Non-Af Amer) BUN/Creatinine Ratio Glucose Lactate Calcium Magnesium Total Bilirubin Direct Bilirubin AST ALT Alkaline Phosphatase Total Creatine Kinase Troponin I NT-Pro-B Natriuret Pep Total Protein Albumin Lipase Urine Color Urine Appearance Urine pH Ur Specific Pansey Urine Protein Urine Glucose (UA) Urine Ketones Urine Blood Urine Nitrite Urine Bilirubin Urine Urobilinogen Ur Leukocyte Esterase Ethyl Alcohol mg/dL 96.0 H COVID-19 Eval Order Covid19 at [facility] SARS-CoV-2 (PCR) 03/30/21 03/30/21 00:21 01:38 WBC RBC Hgb Hct MCV MCH MCHC RDW Std Deviation RDW Coeff of Odette Plt Count MPV Immature Gran % (Auto) Neut % (Auto) Lymph % (Auto) Livingston % (Auto) Eos % (Auto) Baso % (Auto) Neut # (Auto) Lymph # (Auto) Livingston # (Auto) Eos # (Auto) Baso # (Auto) Immature Gran # (Auto) PT INR Sodium Potassium Chloride Carbon Dioxide Anion Gap BUN Creatinine Est Cr Clr Drug Dosing Est GFR ( Amer) Est GFR (Non-Af Amer) BUN/Creatinine Ratio Glucose Lactate Calcium Magnesium Total Bilirubin Direct Bilirubin AST ALT Alkaline Phosphatase Total Creatine Kinase Troponin I NT-Pro-B Natriuret Pep Total Protein Albumin Lipase Urine Color Yellow Urine Appearance Clear Urine pH 6.0 Ur Specific Pansey 1.008 Urine Protein Negative Urine Glucose (UA) Negative Urine Ketones Negative Urine Blood Negative Urine Nitrite Negative Urine Bilirubin Negative Urine Urobilinogen Negative Ur Leukocyte Esterase Negative Ethyl Alcohol mg/dL COVID-19 Eval Order SARS-CoV-2 (PCR) NEGATIVE Diagnostic Findings Head CTA 03/30/21 16:58 CT ANGIOGRAM OF THE BRAIN; CT ANGIOGRAM OF THE NECK CLINICAL HISTORY: Dizziness. Atherosclerotic disease. COMPARISON STUDY: Unenhanced CT of the brain performed the same day 03/30/2021. TECHNIQUE: Following the IV administration of 108 of Optiray 350, CT angiogram of the head and neck was performed from the aortic arch to the vertex. Images are reviewed in the axial, sagittal, and coronal planes. 3-D MIPS images are created and assessed. IV contrast was administered without complication. All measurements were calculated based on NASCET criteria. A dose lowering technique was utilized adhering to the principles of ALARA. CT DOSE: 469.51 mGy.cm FINDINGS: Brain parenchyma: The brain parenchyma is normal in appearance. There is no hemorrhage, mass effect, or evidence of acute territorial ischemia by CT criteria. There is no evidence of enhancing mass lesion on the angiogram phase images. The ventricles, sulci, and cisterns are normal in configuration. Hallman- white matter differentiation is preserved. No extra-axial fluid collection is seen. Thoracic aorta: There is atherosclerotic calcification of the thoracic aorta. Visualized portions of the thoracic aorta are normal in caliber. The aortic arch demonstrates standard 3-vessel anatomy. Right carotid arterial system: The right common carotid artery is widely patent. There is high-grade stenosis (greater than 90%) of the proximal right internal carotid artery. This extends approximately 1 cm in length and is located just above the carotid bifurcation. The mid to distal internal carotid artery is widely patent. There is also high-grade stenosis of the origin of the right external carotid artery. Left carotid arterial system: There is atherosclerotic plaque and irregularity throughout the left common carotid artery, with less than 50% luminal narrowing distally. There is advanced atherosclerotic plaque of the carotid bulb with approximate 60% focal stenosis of the proximal left internal carotid artery seen on axial image #232. This is located approximately 1 cm above the carotid bifurcation. The mid to distal left internal carotid artery is widely patent. There is only mild stenosis at the origin of the left external carotid artery. Vertebral arteries: The vertebral arteries are widely patent bilaterally and codominant. Subclavian arteries: Widely patent bilaterally. Intracranial vasculature: The cahto of Mejias is developmentally complete. Atherosclerotic calcification is noted in the cavernous carotid arteries. The internal carotid arteries are patent at the skull base, as are the anterior and middle cerebral arteries bilaterally. The vertebrobasilar system and posterior cerebral arteries are widely patent. The vertebral arteries are codominant. There is no aneurysm, high-grade stenosis, or focal vessel cut off seen throughout the intracranial circulation. Jugular veins: Patent bilaterally. Dural sinuses: Patent. Lung apices: Emphysematous change is noted. Partially visualized upper lobe lung parenchyma is otherwise clear. Soft tissues: The visualized pharyngeal soft tissues are normal in appearance noting angiographic phase technique. The oropharyngeal airway appears widely patent. The salivary and thyroid glands are normal in appearance. No cervical lymphadenopathy is seen. Skeletal structures: The skeletal structures are osteopenic. The calvarium appears intact. The cervical spine is maintained noting multilevel spondylosis. No lytic or blastic lesion is seen. Orbits: The bony orbits are intact. Orbital contents are normal as visualized. Sinuses and mastoids: The paranasal sinuses are clear. The mastoid air cells are well pneumatized. IMPRESSION: 1. There is no evidence of hemorrhage, mass effect, or acute territorial ischemia by CT criteria noting angiographic phase technique. 2. Unremarkable CT angiogram of the brain. 3. There is focal high-grade stenosis of the proximal right internal carotid artery with near-complete occlusion (greater than 90% luminal narrowing). 4. There is approximately 60% focal stenosis of the proximal left internal carotid artery. 5. There is high-grade stenosis at the origin of the right external carotid artery. ACT 112: Negative or not required by law. Electronically signed by: Dae Quintero M.D. 03/30/2021 7:48 PM Neck CTA 03/30/21 16:58 CT ANGIOGRAM OF THE BRAIN; CT ANGIOGRAM OF THE NECK CLINICAL HISTORY: Dizziness. Atherosclerotic disease. COMPARISON STUDY: Unenhanced CT of the brain performed the same day 03/30/2021. TECHNIQUE: Following the IV administration of 108 of Optiray 350, CT angiogram of the head and neck was performed from the aortic arch to the vertex. Images are reviewed in the axial, sagittal, and coronal planes. 3-D MIPS images are created and assessed. IV contrast was administered without complication. All measurements were calculated based on NASCET criteria. A dose lowering technique was utilized adhering to the principles of ALARA. CT DOSE: 469.51 mGy.cm FINDINGS: Brain parenchyma: The brain parenchyma is normal in appearance. There is no hemorrhage, mass effect, or evidence of acute territorial ischemia by CT criteria. There is no evidence of enhancing mass lesion on the angiogram phase images. The ventricles, sulci, and cisterns are normal in configuration. Hallman- white matter differentiation is preserved. No extra-axial fluid collection is seen. Thoracic aorta: There is atherosclerotic calcification of the thoracic aorta. Visualized portions of the thoracic aorta are normal in caliber. The aortic arch demonstrates standard 3-vessel anatomy. Right carotid arterial system: The right common carotid artery is widely patent. There is high-grade stenosis (greater than 90%) of the proximal right internal carotid artery. This extends approximately 1 cm in length and is located just above the carotid bifurcation. The mid to distal internal carotid artery is widely patent. There is also high-grade stenosis of the origin of the right external carotid artery. Left carotid arterial system: There is atherosclerotic plaque and irregularity throughout the left common carotid artery, with less than 50% luminal narrowing distally. There is advanced atherosclerotic plaque of the carotid bulb with approximate 60% focal stenosis of the proximal left internal carotid artery seen on axial image #232. This is located approximately 1 cm above the carotid bifurcation. The mid to distal left internal carotid artery is widely patent. There is only mild stenosis at the origin of the left external carotid artery. Vertebral arteries: The vertebral arteries are widely patent bilaterally and codominant. Subclavian arteries: Widely patent bilaterally. Intracranial vasculature: The cahto of Mejias is developmentally complete. Atherosclerotic calcification is noted in the cavernous carotid arteries. The internal carotid arteries are patent at the skull base, as are the anterior and middle cerebral arteries bilaterally. The vertebrobasilar system and posterior cerebral arteries are widely patent. The vertebral arteries are codominant. There is no aneurysm, high-grade stenosis, or focal vessel cut off seen throughout the intracranial circulation. Jugular veins: Patent bilaterally. Dural sinuses: Patent. Lung apices: Emphysematous change is noted. Partially visualized upper lobe lung parenchyma is otherwise clear. Soft tissues: The visualized pharyngeal soft tissues are normal in appearance noting angiographic phase technique. The oropharyngeal airway appears widely patent. The salivary and thyroid glands are normal in appearance. No cervical lymphadenopathy is seen. Skeletal structures: The skeletal structures are osteopenic. The calvarium appears intact. The cervical spine is maintained noting multilevel spondylosis. No lytic or blastic lesion is seen. Orbits: The bony orbits are intact. Orbital contents are normal as visualized. Sinuses and mastoids: The paranasal sinuses are clear. The mastoid air cells are well pneumatized. IMPRESSION: 1. There is no evidence of hemorrhage, mass effect, or acute territorial ischemia by CT criteria noting angiographic phase technique. 2. Unremarkable CT angiogram of the brain. 3. There is focal high-grade stenosis of the proximal right internal carotid artery with near-complete occlusion (greater than 90% luminal narrowing). 4. There is approximately 60% focal stenosis of the proximal left internal carotid artery. 5. There is high-grade stenosis at the origin of the right external carotid artery. ACT 112: Negative or not required by law. Electronically signed by: Dae Quintero M.D. 03/30/2021 7:48 PM PG Care Time/CCT Total # of Minutes Spent Total Time Spent with Patient: Total time spent is greater than 50% in coordination of care (as documented) at patient's floor/unit and/or counseling patient: Prolonged Care Time Prolonged Care Time: Yes Total Prolonged Care Time: 60 Coding Level of Care Code None Diagnoses Visual changes H53.9 Dizziness R42 Carotid artery stenosis I65.23 Laterality: bilateral Near syncope R55 Alcohol abuse F10.10 COPD (chronic obstructive pulmonary disease) J44.9 COPD type: unspecified COPD Hypertension I10 Hypertension type: essential hypertension Peripheral artery disease I73.9 Tobacco dependence F17.200 Duodenal ulcer with perforation K26.5 Renal mass N28.89 Renal artery stenosis I70.1 Ischemic ulcer of right foot L97.519 Non-pressure ulcer stage: unspecified non-pressure ulcer stage Complex care coordination Z71.89 Additional Codes Prolonged Care Time - Prolonged Care Time: Yes ([id number]) Time Spent (min) 60 Comment Prolonged service beyond the time spent by Dr Mireles for admission. (1) Carotid artery stenosis Laterality: bilateral Qualified Code(s): I65.23 - Occlusion and stenosis of bilateral carotid arteries (2) Ischemic ulcer of right foot Non-pressure ulcer stage: unspecified non-pressure ulcer stage Qualified Code(s): L97.519 - Non-pressure chronic ulcer of other part of right foot with unspecified severity (3) COPD (chronic obstructive pulmonary disease) COPD type: unspecified COPD Qualified Code(s): J44.9 - Chronic obstructive pulmonary disease, unspecified (4) Hypertension Hypertension type: essential hypertension Qualified Code(s): I10 - Essential (primary) hypertension
[2021-03-31] MEDS: ACETAMINOPHEN 325 MG TAB PO PRN ×3 (02:51→20:08)
[2021-03-31 07:47] LABS: Calcium 8.2 mg/dl (8.5-10.1); Creatinine Clr Calc Pharmacy 70.1 ml/min; Est GFR (African American) 113.7 ml/min; Est GFR (Non-African American) 98.1 ml/min; Potassium 3.7 mmol/L (3.5-5.1)
--- NOTE | 2021-03-31 08:07 | Magnetic Resonance Report ---
MRI OF THE BRAIN WITHOUT CONTRAST CLINICAL HISTORY: dizziness, weakness, R ICA stenosis COMPARISON STUDY: Head CT and CTA of the head March 30, 2021. TECHNIQUE: Utilizing a 1.5 Samantha magnet and dedicated coil, multiplanar, multiecho imaging of the bra in was performed without IV contrast. FINDINGS: There are no foci of restricted diffusion to suggest acute infarct. No acute intracranial h emorrhage, midline shift or mass effect is present. Brain volume is normal for age. Ventricular syste m is unremarkable. Basal cisterns are patent. There are no extra-axial collections. White matter T2 h yperintense foci favor mild small vessel disease. Calvarial signal is normal. Orbits are unremarkable on this unenhanced exam. No intracranial masses are identified on this unenhanced study. Right maxil paul sinus is somewhat diminutive. IMPRESSION: 1. No acute intracranial findings. 2. Matter T2 hyperintense foci suggestive of mild small vessel disease. ACT 112: Negative or not required by law. Electronically signed by: Km Carey M.D. 03/31/2021 8:06 AM
[2021-03-31] MEDS: THIAMINE HCL 100 MG TAB PO SCH ×2 (08:30→20:00)
[2021-03-31] MEDS: carvediloL 12.5 MG TAB PO SCH ×2 (08:30→20:00)
[2021-03-31] MEDS: PANTOprazole 40 MG TAB PO SCH (08:31)
[2021-03-31] MEDS: lisinopril 10 MG TAB PO SCH (08:31)
[2021-03-31] MEDS: ATORVASTATIN 40 MG TAB PO SCH (08:31)
[2021-03-31] MEDS: CLOPIDOGREL BISULFATE 75 MG TAB PO SCH (08:31)
[2021-03-31] MEDS: FOLIC ACID 1 MG TAB PO SCH (08:31)
[2021-03-31] MEDS: COLLAGENASE OINT 30 GM TUBE TOP SCH (08:32)
[2021-03-31] MEDS: NICOTINE 21 MG/24 HR TDSY TD SCH (10:27)
[2021-03-31] MEDS ORDERED: lisinopril 5 MG TAB PO ONE (13:00)
--- NOTE | 2021-03-31 14:51 | Consultation ---
Date of Consultation March 31, 2021 Assessment & Plan (1) Carotid artery stenosis: Due to the severe stenosis present would recommend an elective CEA of the right carotid artery. I have discussed the risks options and benefits of the procedure with the patient. The patient understands the risks options and benefits and agrees to the procedure. She may be d/c'd from our standpoint on ASA and plavix. We will contact her to schedule her carotid endart. Thank you very much for letting us participate in the care of this patient. Laterality: right Qualified Code(s): I65.21 - Occlusion and stenosis of right carotid artery (2) Renal artery stenosis: Would follow this conservatively at this point. Would attempt to treat if her pressure is uncontrolled with 4 meds or she is showing signs of renal insufficiency. (3) Peripheral artery disease: this is being treated by Dr. Dias (4) AAA (abdominal aortic aneurysm) without rupture: We will order an ultrasound as an outpatient for follow up of this small saccular infrarenal aortic aneurysm. History of Present Illness Reason for Consultation: Severe right internal carotid artery stenosis Attending Physician: Brayden Meyer History of Present Illness This is 65-year-old female with a history of peripheral vascular occlusive disease with a right lower extremity intervention recently. She also has a history of COPD and hypertension. While at home she developed an episode of dizziness. This did not resolve. When she reached a point of becoming lightheaded and having a feeling of passing out, she went to the emergency room. She was admitted at that time. CT angiogram revealed 90% narrowing of her right internal carotid artery had a 60 to 70% narrowing of her left internal carotid artery. Allergies Allergy/AdvReac Type Severity Reaction Status Date / Time No Known Allergies Allergy Mild Verified 02/14/21 13:32 Home Medications Medication Instructions Recorded Confirmed Type atorvastatin 40 mg PO DAILY 30 Days #30 tab 02/01/21 03/30/21 Rx carvedilol 12.5 mg PO BID #30 tab 02/01/21 03/30/21 Rx pantoprazole [Protonix] 40 mg PO DAILY 28 Days #28 tab 02/01/21 03/30/21 Rx tramadol 50 mg tablet 50 mg PO TID PRN #30 tab 02/08/21 03/30/21 Rx collagenase clostridium histo. 250 1 applic TOPICAL DAILY 30 Days #30 02/23/21 03/30/21 Rx unit/gram topical ointment g lisinopril 10 mg tablet 10 mg PO QAM tab 03/07/21 03/30/21 History clopidogrel 75 mg PO QAM #30 tab 03/24/21 03/30/21 Rx Patient History Medical History COPD (chronic obstructive pulmonary disease) Hypertensive urgency Hypokalemia Peripheral artery disease Surgical History H/O exploratory laparotomy (01/22/21) Exploratory laparotomy, oversew perforated duodenal ulcer, abdominal washout. Dr. Craig 01/22/2021 H/O tubal ligation Social History Smoking Status: Current every day smoker Tobacco Type: Cigarettes Age Started Using Tobacco: 27; Cigarettes Per Day: 20; Hx Alcohol Use: Yes Alcohol type: beer Hx Substance Use: No Preferred Language: Greenlandic Communication Ability: Effective Animal Treatment Investigator Required: No Beliefs That Will Affect Care: None marital status: Current Living Situation: Spouse current occupational status: employed current occupation: [employer] How many Children do You have: 2 Feels Safe at Home: Yes caffeine: Yes Assistive Devices: None Review of Systems Review of Systems: All systems reviewed & are unremarkable except as noted in HPI & below Physical Exam Constitutional: WD/WN, vitals as above Neck: trachea midline Respiratory: normal respiratory effort; no respiratory distress Auscultation: lungs clear to auscultation bilaterally Cardiovascular: Rate/Rhythm: regular rate and regular rhythm Vessels: + carotid bruit (right) and femoral pulses present; + posterior tibial pulses abnormal and + dorsalis pedis pulses abnormal Gastrointestinal (Abdomen): Inspection/Auscultation: abdomen normal to inspection; abdomen not distended Percussion/Palpation: abdomen soft; abdomen nontender Musculoskeletal: no cyanosis or clubbing, extremities motor strength 5/5 Skin: + ulcer (right foot) Neurologic: CN's II-XI intact bilaterally and moves all extremities Speech / Cognition: no expressive aphasia Motor/Sensory: no sensory deficit Psychiatric: Orientation: alert and oriented x 3 Results & Data ([facility]) Vital Signs (Past 12 Hours) Vital Signs Temp Pulse Pulse Resp BP BP Pulse Ox 06/03/21 11:10 36.7 C 68 18 162/81 H 96 03/31/21 09:00 73 03/31/21 07:17 36.7 C 74 18 199/99 H 95 03/31/21 03:49 193/83 H 03/31/21 03:13 36.5 C 82 18 207/92 H 96
[2021-03-31] MEDS ORDERED: MECLIZINE 12.5 MG TAB PO STA (18:18)
--- NOTE | 2021-03-31 22:40 | Hospitalist Progress Note ---
Date of Service March 31, 2021 Assessment & Plan (1) Visual changes: She is a poor historian but mentions discrete episodes of visual change when she becomes "dizzy." She has had recurrent episodes of such of late - enough to prompt her to schedule a visit with her eye physician. She doesn't necessarily describe monocular visual loss, however, but can't rule it out fully. MRI brain negative for acute CVA or old CVA. Does need dilated eye exam with local eye provider after discharge. Vision has been relatively good while hospitalized. (2) Dizziness: Orthostatic BPs continue to be negative including today. Her dizziness had resolved yesterday, then returned this afternoon. Of note - her systolic this am was 190s, falling to 145-155 later today. I suspect that this drop may be the culprit. Suspect she is high at home and the drop to the 150s is causing symptoms. [id number], in order to have successful ICA stenosis CEA, she needs better BP control. Doubt vertigo - doesn't really have those features - but will try low dose antivert just to be safe. Although she has severe ICA stenosis on right Dr Baker feels it is not the cause of dizziness. Further, her posterior circulation and subclavians are normal, making subclavian steal syndrome unlikely. (3) Carotid artery stenosis: RIGHT - severe/high-grade - >90% LEFT - moderate, 60% Add asa 81mg daily. Cont lipitor - lipids controlled. Cont plavix. Gradual BP reduction. (4) Near syncope: Some of her dizzy spells lead to near-syncope but she has not actually had full syncope at home. See above. MRI brain neg. Echo 2-3 months ago wnl. Tele here has been wnl. (5) Alcohol abuse: Evidence of etoh in her system at time of presentation. Readily admits to daily etoh consumption. At risk of withdrawal. Placed on withdrawal precautions/protocol with ativan prn. Thiamine 200mg BID. Folic acid 1mg daily. low threshold for gabapentin vs phenobarbital prophy but thus far not really showing clinical signs of etoh withdrawal. (6) COPD (chronic obstructive pulmonary disease): Was treated for COPD exacerbation in ER with nebs, steroids, and dose of abx. However, during my visit with her today - although she c/o cough/wheeze - she is not having purulent sputum or dyspnea at this time. Defer on additional abx/steroids for now. Treat symptoms with nebs/bronchodilators prn. (7) Hypertension: Continue Lisinopril, Carvedilol. In light of newly-discovered critical/severe ICA stenosis on right would NOT overtreat BP at this time. CT abd/pelvis on 01/22 demonstrated severe right-sided renal artery stenosis which could be contributing heavily to her uncontrolled HTN. (8) Peripheral artery disease: Severe, as noted by 01/22/21 CT abd/pelvis showing - * right renal artery severe stenosis * b/l iliac artery stenosis * 16mm x 7mm sacular aneurysm of infrarenal abdominal aorta And now the right-sided high-grade ICA stenosis on right She is s/p RLE arteriogram with intervention by Dr Jony Dias on 03/24/21. She underwent such due to ongoing issues with ischemic ulcers to her right foot. Follows with [facility] for such. 03/24/21 arteriogram report - 1. Right lower extremity --diffuse mid/distal SFA up to 60% (30 mmHg pullback gradient), single-vessel runoff to the foot via SHUTTLER CAR. SHUTTLER CAR with short occlusion at the level of the ankle with brisk collaterals to plantar arteries. DPA occl uded. 2. Successful angioplasty of mid to distal SFA with single drug-eluting balloon (5 x 220 mm Lutonix). 3. Angioplasty of posterior tibial after transient acute occlusion in mid segment with reestablished flow. 4. Attempted angioplasty to anterior tibial but unable to cross proximal DPA occlusion. (9) Tobacco dependence: Nicoderm patch 21mg/day. [employer] to quit. (10) Duodenal ulcer with perforation: s/p oversew and repair of duodenal perforation on 01/22/[address] Betito Craig. Suspect she developed such due to chronic etoh abuse. Cont PPI. Given addition of asa to plavix in setting of etoh abuse increase PPI to bid dosing. (11) Renal mass: Left. Seen on CT abd/pelv on 01/22/21. Given extensive smoking history needs f/u with urology for such. Worrisome for RCC. I informed patient today that she has this and will need f/u. (12) Renal artery stenosis: Right, as seen on CT a/p on 01/22/21. This could be playing a role in her very severe HTN. The MIAN can be addressed down the line. (13) Ischemic ulcer of right foot: x 3; see wound care clinic visit note from 03/16/21. Cultures with coag neg staph and staph aureus over the last few months. Continue local wound care. (14) Complex care coordination: appreciate vascular consultation updated pt's by phone this evening change obs to full admission given the ongoing dizziness and labile HTN Admission and Anticipated Discharge Date Admission Date: March 30, 2021 Subjective saw patient twice today on first visit patient anxious to go home denied dizziness feeling good Dr Baker joined during this first visit - he went over risks/benefits of CEA told patient I wanted her BP to be better before discharge I went and saw her about 4 hours later she was c/o dizziness again - swimmy feeling, lightheaded, but orthostatics again negative no true vertigo, but worse with positional changes in head antivert 12.5mg po x 1 given I encouraged her to stay another night due to labile BPs and ongoing dizziness I personally checked her BP, right arm, with peds cuff - systolics 140s, diastolics 70s left arm systolic 150s Review of Systems Respiratory: + cough, + dyspnea (scant) and + wheezing Cardiovascular: no chest pain Gastrointestinal: no abdominal pain, no nausea and no vomiting Neurologic: + dizziness; no localized weakness, no generalized weakness, no syncope, no headache(s) and no confusion Physical Exam Constitutional: + thin and + frail appearing; no acute distress and no altered mental status ENMT: external ear and nose normal, oropharynx normal Respiratory: no respiratory distress Auscultation: + wheezes (Diffuse b/l, mild, but good air movement) Cardiovascular: Rate/Rhythm: regular rate and regular rhythm Heart Sounds: normal S1, normal S2 and + murmur (systolic 1/6 LLSB) Vessels: popliteal pulses present; no JVD, + posterior tibial pulses abnormal and + dorsalis pedis pulses abnormal Extremities: no edema Gastrointestinal (Abdomen): normal bowel sounds, soft, nontender, no hepatosplenomegaly Neurologic: moves all extremities; no focal motor deficits Speech / Cognition: normal speech Psychiatric: A+Ox3, euthymic affect Results & Data Results & Data ([facility]) Vital Signs (Past 12 Hours) Vital Signs Temp Pulse Resp BP Pulse Ox 03/31/21 19:26 36.7 C 75 18 153/81 H 96 03/31/21 14:52 36.7 C 71 18 145/80 H 95 03/31/21 11:10 36.7 C 68 18 162/81 H 96 Laboratory Results Laboratory Results - last 24 hr 03/31/21 06:40 Sodium 137 Potassium 3.7 Chloride 107 Carbon Dioxide 25 Anion Gap 5.0 BUN 13 Creatinine 0.58 L Est Cr Clr Drug Dosing 70.1 Est GFR ( Amer) 113.7 Est GFR (Non-Af Amer) 98.1 BUN/Creatinine Ratio 22.0 H Glucose 91 Calcium 8.2 L Triglycerides 63 Cholesterol 158 LDL Cholesterol, Calc 62 VLDL Cholesterol, Calc 13 HDL Cholesterol 83 Cholesterol/HDL Ratio 2 Diagnostic Findings MRI brain - negative for acute CVA. PG Care Time/CCT Total # of Minutes Spent Total Time Spent with Patient: Total time spent is greater than 50% in coordination of care (as documented) at patient's floor/unit and/or counseling patient: Coding Level of Care Code 73632 Subseq Hosp Care Lvl 3 Diagnoses Visual changes H53.9 Dizziness R42 Carotid artery stenosis I65.21 Laterality: right Near syncope R55 Alcohol abuse F10.10 COPD (chronic obstructive pulmonary disease) J44.9 COPD type: unspecified COPD Hypertension I10 Hypertension type: essential hypertension Peripheral artery disease I73.9 Tobacco dependence F17.200 Duodenal ulcer with perforation K26.5 Renal mass N28.89 Renal artery stenosis I70.1 Ischemic ulcer of right foot L97.519 Non-pressure ulcer stage: unspecified non-pressure ulcer stage Complex care coordination Z71.89 (1) Carotid artery stenosis Laterality: right Qualified Code(s): I65.21 - Occlusion and stenosis of right carotid artery (2) Ischemic ulcer of right foot Non-pressure ulcer stage: unspecified non-pressure ulcer stage Qualified Code(s): L97.519 - Non-pressure chronic ulcer of other part of right foot with unspecified severity (3) COPD (chronic obstructive pulmonary disease) COPD type: unspecified COPD Qualified Code(s): J44.9 - Chronic obstructive pulmonary disease, unspecified (4) Hypertension Hypertension type: essential hypertension Qualified Code(s): I10 - Essential (primary) hypertension
[2021-04-01] MEDS: ACETAMINOPHEN 325 MG TAB PO PRN ×2 (03:13→08:07)
[2021-04-01] MEDS: ATORVASTATIN 40 MG TAB PO SCH (08:08)
[2021-04-01] MEDS: COLLAGENASE OINT 30 GM TUBE TOP SCH (08:08)
[2021-04-01] MEDS: THIAMINE HCL 100 MG TAB PO SCH (08:08)
[2021-04-01] MEDS: carvediloL 12.5 MG TAB PO SCH (08:08)
[2021-04-01] MEDS: FOLIC ACID 1 MG TAB PO SCH (08:08)
[2021-04-01] MEDS: CLOPIDOGREL BISULFATE 75 MG TAB PO SCH (08:08)
[2021-04-01] MEDS: NICOTINE 21 MG/24 HR TDSY TD SCH (08:09)
[2021-04-01] MEDS: PANTOprazole 40 MG TAB PO SCH (08:46)
[2021-04-01] MEDS ORDERED: lisinopril 20 MG TAB PO SCH (09:00)
[2021-04-01] MEDS ORDERED: lisinopril 10 MG TAB PO SCH (09:00)
[2021-04-01] MEDS ORDERED: ASPIRIN 81 MG ECTAB PO SCH (09:30)
--- NOTE | 2021-04-01 14:25 | Discharge Summary ---
Date of Service date of admission - March 30, 2021 date of discharge - April 01, 2021 Admission HPI Per Admitting Provider Daniela Renee is a 65yo female with history of HTN, PAD, COPD presenting with several days of intermittent dizziness and diffuse weakness. Patient recently had stent placement in her RLE. She returned to work yesterday after several days off. She came home from work and had a couple beers and was getting ready for bed. Around 21:30 she became very lightheaded and thought that she was going to pass out. Also with complaint of headache and body aches. She denies visual disturbance or focal numbness/tingling/weakness. No complaint of chest pain, palpitations, nausea, vomiting, abdominal pain. No additional complatints at this time. ER Course: Tylenol, Albuterol, Dexamethasone, Doxycycline, Banana bag Principal Diagnosis 1. dizziness - suspected to be blood pressure related - improved 2. severe right-sided internal carotid artery stenosis 3. COPD with mild exacerbation Discharge Exam Constitutional + thin and + frail appearing; no acute distress and no altered mental status Eyes PERRL; no nystagmus ENMT external ear and nose normal, oropharynx normal Neck BRUIT present, right neck Respiratory no respiratory distress Auscultation: + wheezes (Diffuse/mild, overall good air movement); no rales Cardiovascular Rate/Rhythm: regular rate and regular rhythm Heart Sounds: normal S1, normal S2 and + murmur (systolic 1/6 LLSB) Vessels: popliteal pulses present; no JVD, + posterior tibial pulses abnormal and + dorsalis pedis pulses abnormal Extremities: no edema Gastrointestinal (Abdomen) normal bowel sounds, soft, nontender, no hepatosplenomegaly Skin ulceration over dorsum of right foot - clean, no drainage Neurologic moves all extremities; no focal motor deficits Speech / Cognition: normal speech Psychiatric A+Ox3, euthymic affect Discharge Data Allergies Allergy/AdvReac Type Severity Reaction Status Date / Time No Known Allergies Allergy Mild Verified 02/14/21 13:32 Consultations Vascular Surgery - Teodoro Baker MD Ordered Studies Head CT 03/29/21 23:58 CT head/brain wo con CLINICAL HISTORY: Headache, lightheadedness. COMPARISON STUDY: No previous studies for comparison. TECHNIQUE: Axial CT of the brain is performed from the vertex to the skull base. IV contrast was not administered for this examination. A dose lowering technique was utilized adhering to the principles of ALARA. CT DOSE: 1074.96 mGy.cm FINDINGS: No intra or extra-axial mass lesions are visualized. There is no CT evidence of acute cortical infarction. There is no evidence of midline shift. There is no acute hemorrhage. No calvarial fractures are visualized. There are minor white matter hypodensities likely on a small vessel basis. There is no evidence of acute sinusitis IMPRESSION: No acute intracranial findings ACT 112: Negative or not required by law. Electronically signed by: Georgi Ritchie M.D. 03/30/2021 6:52 AM Chest X-Ray 03/30/21 00:00 XR chest 1V portable CLINICAL HISTORY: weakness COMPARISON STUDY: 01/24/2021 FINDINGS: The heart is mildly enlarged. There is pulmonary emphysema. There is no overt failure. There is no focal pulmonary consolidation. There are no significant pleural effusions.[ IMPRESSION: No active disease in the chest. ACT 112: Negative or not required by law. Electronically signed by: Georgi Ritchie M.D. 03/30/2021 8:40 AM Head CTA 03/30/21 16:58 CT ANGIOGRAM OF THE BRAIN; CT ANGIOGRAM OF THE NECK CLINICAL HISTORY: Dizziness. Atherosclerotic disease. COMPARISON STUDY: Unenhanced CT of the brain performed the same day 03/30/2021. TECHNIQUE: Following the IV administration of 108 of Optiray 350, CT angiogram of the head and neck was performed from the aortic arch to the vertex. Images are reviewed in the axial, sagittal, and coronal planes. 3-D MIPS images are created and assessed. IV contrast was administered without complication. All measurements were calculated based on NASCET criteria. A dose lowering technique was utilized adhering to the principles of ALARA. CT DOSE: 469.51 mGy.cm FINDINGS: Brain parenchyma: The brain parenchyma is normal in appearance. There is no hemorrhage, mass effect, or evidence of acute territorial ischemia by CT criteria. There is no evidence of enhancing mass lesion on the angiogram phase images. The ventricles, sulci, and cisterns are normal in configuration. Hallman- white matter differentiation is preserved. No extra-axial fluid collection is seen. Thoracic aorta: There is atherosclerotic calcification of the thoracic aorta. Visualized portions of the thoracic aorta are normal in caliber. The aortic arch demonstrates standard 3-vessel anatomy. Right carotid arterial system: The right common carotid artery is widely patent. There is high-grade stenosis (greater than 90%) of the proximal right internal carotid artery. This extends approximately 1 cm in length and is located just above the carotid bifurcation. The mid to distal internal carotid artery is widely patent. There is also high-grade stenosis of the origin of the right external carotid artery. Left carotid arterial system: There is atherosclerotic plaque and irregularity throughout the left common carotid artery, with less than 50% luminal narrowing distally. There is advanced atherosclerotic plaque of the carotid bulb with valencia roximate 60% focal stenosis of the proximal left internal carotid artery seen on axial image #232. This is located approximately 1 cm above the carotid bifurcation. The mid to distal left internal carotid artery is widely patent. There is only mild stenosis at the origin of the left external carotid artery. Vertebral arteries: The vertebral arteries are widely patent bilaterally and codominant. Subclavian arteries: Widely patent bilaterally. Intracranial vasculature: The [place] is developmentally complete. Atherosclerotic calcification is noted in the cavernous carotid arteries. The internal carotid arteries are patent at the skull base, as are the anterior and middle cerebral arteries bilaterally. The vertebrobasilar system and posterior cerebral arteries are widely patent. The vertebral arteries are codominant. There is no aneurysm, high-grade stenosis, or focal vessel cut off seen throughout the intracranial circulation. Jugular veins: Patent bilaterally. Dural sinuses: Patent. Lung apices: Emphysematous change is noted. Partially visualized upper lobe lung parenchyma is otherwise clear. Soft tissues: The visualized pharyngeal soft tissues are normal in appearance noting angiographic phase technique. The oropharyngeal airway appears widely patent. The salivary and thyroid glands are normal in appearance. No cervical lymphadenopathy is seen. Skeletal structures: The skeletal structures are osteopenic. The calvarium appears intact. The cervical spine is maintained noting multilevel spondylosis. No lytic or blastic lesion is seen. Orbits: The bony orbits are intact. Orbital contents are normal as visualized. Sinuses and mastoids: The paranasal sinuses are clear. The mastoid air cells are well pneumatized. IMPRESSION: 1. There is no evidence of hemorrhage, mass effect, or acute territorial ischemia by CT criteria noting angiographic phase technique. 2. Unremarkable CT angiogram of the brain. 3. There is focal high-grade stenosis of the proximal right internal carotid artery with near-complete occlusion (greater than 90% luminal narrowing). 4. There is approximately 60% focal stenosis of the proximal left internal carotid artery. 5. There is high-grade stenosis at the origin of the right external carotid artery. ACT 112: Negative or not required by law. Electronically signed by: Dae Quintero M.D. 03/30/2021 7:48 PM Neck CTA 03/30/21 16:58 CT ANGIOGRAM OF THE BRAIN; CT ANGIOGRAM OF THE NECK CLINICAL HISTORY: Dizziness. Atherosclerotic disease. COMPARISON STUDY: Unenhanced CT of the brain performed the same day 03/30/2021. TECHNIQUE: Following the IV administration of 108 of Optiray 350, CT angiogram of the head and neck was performed from the aortic arch to the vertex. Images are reviewed in the axial, sagittal, and coronal planes. 3-D MIPS images are created and assessed. IV contrast was administered without complication. All measurements were calculated based on NASCET criteria. A dose lowering technique was utilized adhering to the principles of ALARA. CT DOSE: 469.51 mGy.cm FINDINGS: Brain parenchyma: The brain parenchyma is normal in appearance. There is no hemorrhage, mass effect, or evidence of acute territorial ischemia by CT criteria. There is no evidence of enhancing mass lesion on the angiogram phase images. The ventricles, sulci, and cisterns are normal in configuration. Hallman- white matter differentiation is preserved. No extra-axial fluid collection is seen. Thoracic aorta: There is atherosclerotic calcification of the thoracic aorta. Visualized portions of the thoracic aorta are normal in caliber. The aortic arch demonstrates standard 3-vessel anatomy. Right carotid arterial system: The right common carotid artery is widely patent. There is high-grade stenosis (greater than 90%) of the proximal right internal carotid artery. This extends approximately 1 cm in length and is located just above the carotid bifurcation. The mid to distal internal carotid artery is widely patent. There is also high-grade stenosis of the origin of the right external carotid artery. Left carotid arterial system: There is atherosclerotic plaque and irregularity throughout the left common carotid artery, with less than 50% luminal narrowing distally. There is advanced atherosclerotic plaque of the carotid bulb with approximate 60% focal stenosis of the proximal left internal carotid artery seen on axial image #232. This is located approximately 1 cm above the carotid bifurcation. The mid to distal left internal carotid artery is widely patent. There is only mild stenosis at the origin of the left external carotid artery. Vertebral arteries: The vertebral arteries are widely patent bilaterally and codominant. Subclavian arteries: Widely patent bilaterally. Intracranial vasculature: The [place] is developmentally complete. Atherosclerotic calcification is noted in the cavernous carotid arteries. The internal carotid arteries are patent at the skull base, as are the anterior and middle cerebral arteries bilaterally. The vertebrobasilar system and posterior cerebral arteries are widely patent. The vertebral arteries are codominant. There is no aneurysm, high-grade stenosis, or focal vessel cut off seen throughout the intracranial circulation. Jugular veins: Patent bilaterally. Dural sinuses: Patent. Lung apices: Emphysematous change is noted. Partially visualized upper lobe lung parenchyma is otherwise clear. Soft tissues: The visualized pharyngeal soft tissues are normal in appearance noting angiographic phase technique. The oropharyngeal airway appears widely patent. The salivary and thyroid glands are normal in appearance. No cervical lymphadenopathy is seen. Skeletal structures: The skeletal structures are osteopenic. The calvarium appears intact. The cervical spine is maintained noting multilevel spondylosis. No lytic or blastic lesion is seen. Orbits: The bony orbits are intact. Orbital contents are normal as visualized. Sinuses and mastoids: The paranasal sinuses are clear. The mastoid air cells are well pneumatized. IMPRESSION: 1. There is no evidence of hemorrhage, mass effect, or acute territorial ischemia by CT criteria noting angiographic phase technique. 2. Unremarkable CT angiogram of the brain. 3. There is focal high-grade stenosis of the proximal right internal carotid artery with near-complete occlusion (greater than 90% luminal narrowing). 4. There is approximately 60% focal stenosis of the proximal left internal carotid artery. 5. There is high-grade stenosis at the origin of the right external carotid artery. ACT 112: Negative or not required by law. Electronically signed by: Dae Quintero M.D. 03/30/2021 7:48 PM Brain MRI 03/30/21 20:28 MRI OF THE BRAIN WITHOUT CONTRAST CLINICAL HISTORY: dizziness, weakness, R ICA stenosis COMPARISON STUDY: Head CT and CTA of the head March 30, 2021. TECHNIQUE: Utilizing a 1.5 Samantha magnet and dedicated coil, multiplanar, multiecho imaging of the brain was performed without IV contrast. FINDINGS: There are no foci of restricted diffusion to suggest acute infarct. No acute intracranial hemorrhage, midline shift or mass effect is present. Brain volume is normal for age. Ventricular system is unremarkable. Basal cisterns are patent. There are no extra-axial collections. White matter T2 hyperintense foci favor mild small vessel disease. Calvarial signal is normal. Orbits are unremarkable on this unenhanced exam. No intracranial masses are identified on this unenhanced study. Right maxillary sinus is somewhat diminutive. IMPRESSION: 1. No acute intracranial findings. 2. Matter T2 hyperintense foci suggestive of mild small vessel disease. ACT 112: Negative or not required by law. Electronically signed by: Km Carey M.D. 03/31/2021 8:06 AM Hospital Course (1) Dizziness: The patient had multiple sets of orthostatic BPs that were negative. Her dizziness had largely resolved early on in her stay, then returned about a day later. She denied discrete vertigo. The patient had considerable blood pressure lability and this may have contributed to her dizziness. She seemed symptomatic when her resting systolic BPs were 180s/190s then fell to the 150s/160s after taking her blood pressure medication. She reported visual changes during episodes of dizziness and for that reason underwent additional work-up to exclude LOSS PREVENTION MANAGER causes of her complaints. MRI brain was negative for acute stroke. CTA neck showed severe ICA stenosis on right (at least 90% occluded). Vertebral-basilar system was patent. Although she has severe ICA stenosis on right Dr Baker, vascular surgery, felt it was not the direct cause of her dizziness. As mentioned above subclavian steal syndrome was unlikely given the patent vertebral-basilar system. She did receive a dose of antivert while hospitalized and she reported some symptom relief with such. At time of discharge home she was ambulating in her room as well as in the the halls with little limitation. (2) Carotid artery stenosis: RIGHT - severe/high-grade, >90% LEFT - moderate, 60% Added asa 81mg daily. Cont lipitor - lipids controlled, with LDL of 62. Cont plavix. Improved BP control (see below). Seen by Dr Cash Baker, [facility] V[facility] Surgery. Patient will undergo CEA within ~2-3 weeks of hospital discharge. Smoking cessation STRONGLY ENCOURAGED. In light of the nature of her upcoming surgery advise close f/u with PCP within a week to discuss additional testing to ensure highest optimization for this surgery. (3) Visual changes: She was a poor historian but mentioned discrete episodes of visual change when she became "dizzy." She had had recurrent episodes of visual change leading up to this admission - certainly enough to prompt her to schedule a visit with her eye physician. MRI brain negative for acute CVA or old CVA. Does need dilated eye exam with local eye provider after discharge. (4) Near syncope: Some of her dizzy spells led to near-syncope at her home. MRI brain negative. Echo 01/24/2021 was wnl. Tele wnl while hospitalized. Orthostatic BPs were negative. (5) Alcohol abuse: Evidence of etoh in her system at time of admission. Readily admitted to daily etoh consumption at home. Placed on withdrawal precautions/protocol with ativan prn at time of admission. Thiamine 200mg BID and Folic acid 1mg daily were supplemented. She never demonstrated signs/symptoms of etoh withdrawal fortunately. (6) COPD (chronic obstructive pulmonary disease): Was treated for COPD exacerbation in ER with nebs, steroids, and dose of antibiotics. Steroids and antibiotics were deferred following admission. She will continue her usual COPD meds. (7) Hypertension: Continue Lisinopril 10mg qam. If BPs remained high at home then patient instructed to take an additional 5mg of lisinopril at bedtime. She will continue carvedilol 12.5mg BID. CT abd/pelvis on 01/22 demonstrated severe right-sided renal artery stenosis which could be contributing heavily to her uncontrolled HTN. Dr Baker to follow the renal artery stenosis as an outpatient. 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 She underwent such due to ongoing issues with ischemic ulcers to her right foot. Follows with [facility] for such. 03/24/21 arteriogram report - 1. Right lower extremity --diffuse mid/distal SFA up to 60% (30 mmHg pullback gradient), single-vessel runoff to the foot via ASSISTANT FRONT DESK MANAGER. ASSISTANT FRONT DESK MANAGER with short occlusion at the level of the ankle with brisk collaterals to plantar arteries. DPA occluded. 2. Successful angioplasty of mid to distal SFA with single drug-eluting balloon (5 x 220 mm Lutonix). 3. Angioplasty of posterior tibial after transient acute occlusion in mid segment with reestablished flow. 4. Attempted angioplasty to anterior tibial but unable to cross proximal DPA occlusion. Patient to return to [facility] in the next 2-3 weeks for right-sided CEA by Dr Baker. (9) Tobacco dependence: Nicoderm patch 21mg/day. Counseled to quit. (10) Duodenal ulcer with perforation: s/p oversew and repair of duodenal perforation on 01/22/[address] Betito Craig. Suspect she developed such due to chronic etoh abuse. Cont PPI. Given addition of asa to plavix in setting of etoh abuse I recommended increasing the PPI to bid dosing. (11) Renal mass: Left. Seen on CT abd/pelv on 01/22/21. Given extensive smoking history needs f/u with urology for such. Worrisome for RCC. I informed patient of this CT finding and explained the need for follow-up. (12) Renal artery stenosis: Right, as seen on CT a/p on 01/22/21. This could be playing a role in her very severe HTN. The MIAN can be addressed as an outpatient in the vascular surgery office. (13) Ischemic ulcer of right foot: x 3; see wound care clinic visit note from 03/16/21. Cultures with coag neg staph and staph aureus over the last few months. See "PAD" above regarding recent procedure to RLE by Dr Jony Dias. Continue local wound care including Santyl's cream. f/u Wound Care center as outpatient. Total Time Total Time Spent Total Time Spent (In Minutes): 45 Total Time Includes: Examination of the Patient, Discharge Planning, Medication Reconciliation and Communication With Other Providers Discharge Plan Discharge Items Patient Disposition: Home - Self-Care Reason For Visit: DIZZINESS Discharge Diagnosis: 1. dizziness - suspected to be from blood pressure swings - improved 2. severe carotid artery stenosis on right - 90% blocked artery - surgery needed 3. cyst on the left kidney - you will ultimately need to see a urology specialist for this 4. right-sided renal artery stenosis (plaque build-up in the artery leading to your right kidney) - Dr Baker will follow this 5. ulcer on right foot 6. visual changes - please schedule an eye exam jefe Activity: As commented below Activity Comment: until your surgery no heavy exertional activities; light activities only Driving/Machine Use: no driving unless you have had no dizziness for at least 2 straight days Non-emergency contact: Primary Care Provider and Specialist Call non-emergency contact if: you have any medication questions, your symptoms worsen, you have a fever, your wound has increased redness, your wound has increased drainage and your wound pain has increased Follow-up/Referrals: Mariella Kruger DO [Physician] - 04/11/21 2:00 pm (Your appointment is with the nurse practicioner, Bonifacio Miranda. If you have any questions or need to change this appointment, please call [phone]. Please arrive at least 15 minutes early for an initial visit with the nurse.) Cash Baker MD [Physician] - (surgery with Dr Baker in the next 2-3 weeks for the blocked carotid artery) Diet: Heart Healthy Addtl Attending Provider Instructions: Mrs Renee, You were treated for the problems listed above in "discharge diagnoses." Your dizziness was likely related to swings in your blood pressure as you noticed some dizziness when the blood pressure would fall with your blood pressure medications. You did mention that the dizziness was brought on also by moving in the bed, etc. Thus, there is a small possibility it is dizziness coming from the inner ear but unlikely. Your MRI brain did NOT show a stroke. Your CAT scans of the head and neck showed a severely blocked artery on the right side of your neck. You need surgery on the blockage in the next few weeks by Dr Baker. A CAT scan of your abdomen from a few months ago also showed a kidney cyst and a blocked kidney artery. Both of these will need follow-up. Recommendations - 1. take baby aspirin 81mg once daily every day 2. take clopidogrel 75mg once daily every day 3. #1 and #2 are for your PAD (peripheral arterial disease) - please take BOTH EVERY DAY - this is extremely important so that you don't have a stroke and other complications 4. for dizziness may take meclizine 12.5mg every 6 hours as needed 5. 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 check your blood pressure twice a day. If your systolic blood pressure (top number) is always consistently greater than 160 please take 5mg of your lisinopril (1/2 tablet) at bedtime in addition to the 10mg in the morning. 7. please consider quitting smoking. see handouts. This is vital for your health. Your blocked arteries will simply get worse with ongoing smoking. 8. continue the santyl's on the right foot ulcer as previous along with dressing changes Follow-up - see separate section Return to [facility] if - * you have fevers over 100 degrees * your right foot ulcer gets worse (more redness, drainage, etc) * your dizziness gets worse, you feel like you may pass out, or you actually pass out * you have worsening shortness of breath * any other concerns Good luck with your upcoming surgery! -Dr Meyer Pending Studies at Discharge: No Stand-Alone Forms: My [facility], Smoking Cessation Medications and DC Order Prescriptions: New aspirin 81 mg Tablet,Delayed Release (Dr/Ec) 81 mg PO QAM Qty: 90 RF: 1 thiamine HCl (vitamin B1) [Vitamin B-1] 100 mg Tablet 200 mg PO BID 14 Days Qty: 56 RF: 0 meclizine 12.5 mg tablet 12.5 mg PO QID PRN (Reason: dizziness) Qty: 20 RF: 0 albuterol sulfate 2.5 mg /3 mL (0.083 %) Solution For Nebulization 2.5 mg NEB Q4H PRN (Reason: cough or wheeze) Qty: 90 RF: 0 Continued Santyl 250 unit/gram ointment 1 applic topical DAILY 30 Days Qty: 30 RF: 1 lisinopril 10 mg tablet 10 mg PO QAM RF: 0 clopidogrel 75 mg Tablet 75 mg PO QAM Qty: 30 RF: 3 atorvastatin 40 mg tablet 40 mg PO DAILY 30 Days Qty: 30 RF: 2 carvedilol 12.5 mg Tablet 12.5 mg PO BID Qty: 30 RF: 1 Changed pantoprazole [Protonix] 40 mg tablet,delayed release (DR/EC) 40 mg PO BID Qty: 60 RF: 2 Discontinued tramadol 50 mg tablet 50 mg PO TID PRN (Reason: pain) Qty: 30 RF: 0 Discharge Orders: Discharge Order (Routine); Ordered 04/01/21 Ordered By: Brayden Hill/Other Patient Handouts: Planning to Quit Smoking, Getting Support for Quitting Smoking, Smoking and PAD, ED How to Quit Smoking, Carotid Artery Disease Admission Data Admit Date/Time: 03/30/21 03:05 Attending Provider: Brayden Meyer Admit Provider: Em Mireles Primary Care Provider: Roland Queen Other Providers: Cash Baker Other Interventions: Discharge Summary Assessment (RN) Last Done: 04/01/21 14:31 Coding Level of Care Code D/C Day Management >30 mins Diagnoses Dizziness R42 Carotid artery stenosis I65.21 Laterality: right Visual changes H53.9 Near syncope R55 Alcohol abuse F10.10 COPD (chronic obstructive pulmonary disease) J44.9 COPD type: unspecified COPD Hypertension I10 Hypertension type: essential hypertension Peripheral artery disease I73.9 Tobacco dependence F17.200 Duodenal ulcer with perforation K26.5 Renal mass N28.89 Renal artery stenosis I70.1 Ischemic ulcer of right foot L97.519 Non-pressure ulcer stage: unspecified non-pressure ulcer stage
== END 2021-04-01 15:20 | disposition home or self-care (01) | DRG 68 ==
LOC: 2N 23:39 → ED 23:39 → SUATTDRO 03-30 03:05 → INTOOBSV 03-30 03:05 → 2N 03-30 03:48

== ENCOUNTER 2021-04-13 10:52 | Inpatient (IN) ==
--- NOTE | 2021-04-08 10:58 | Anesthesiology Consultation ---
Date of Service April 08, 2021 Assessment & Plan (1) Encounter for pre-operative examination: Chart Review Chart Review: Acceptable Risk for Surgery (pending preop Covid testing results ) and Patient NOT seen in Pre Admission Testing At least 3-4 beers daily per nursing assessment Per nursing assessment 04/08/2021, patient denies any recent travel. No known Covid infection in the past 90 days. No known Covid positive contacts or Covid related symptoms. Preop Covid testing scheduled 04/11/21 in [place]= will await results. Pt is fully vaccinated for Covid Patient admitted at [facility] /12/19-04/01/21 = presented with intermittent dizziness and diffuse weakness. Recent stent placement and RLE. Dizzinesssuspected to be BP relatedimproved. Dizziness had largely resolved early on inpatient stay but then returned a day later. Denied discrete vertigo. Did receive dose of Antivert while hospitalized and reported some symptom relief. Severe right- sided internal carotid artery stenosis. Aspirin 81 mg added. Continue Lipitor and Plavix. Improved BP control. Patient will undergo CEA within 2 to 3 weeks of hospital discharge. COPD with mild exacerbation. Treated with nebulizer, steroids and dose of antibiotics in ER. HypertensionCT scan demonstrated severe right sided renal artery stenosis that could be contributing to uncontrolled hypertensionwe will follow-up with vascular as outpatient. History Surgery Operation Date: 04/13/21 12:30 Proposed Procedures p Right Carotid Endarterectomy - Cash Baker MD Height/Weight Height: 5 ft 2 in Weight: 40.823 kg Allergies Allergy/AdvReac Type Severity Reaction Status Date / Time No Known Allergies Allergy Mild Verified 04/08/21 09:46 Medications Home Medications Medication Instructions Recorded Confirmed Last Taken atorvastatin 40 mg PO DAILY 30 Days #30 tab 02/01/21 04/08/21 Unknown lisinopril 10 mg tablet 10 mg PO QAM tab 03/07/21 04/08/21 Unknown albuterol sulfate 2.5 mg NEB Q4H PRN #90 ml 04/01/21 04/08/21 Unknown aspirin 81 mg PO QAM #90 tab 04/01/21 04/08/21 Unknown clopidogrel 75 mg PO QAM #30 tab 04/01/21 04/08/21 Unknown meclizine 12.5 mg PO QID PRN #20 tab 04/01/21 04/08/21 Unknown pantoprazole [Protonix] 40 mg PO BID #60 tab 04/01/21 04/08/21 Unknown thiamine HCl (vitamin B1) [Vitamin 200 mg PO BID 14 Days #56 tab 04/01/21 04/08/21 Unknown B-1] Santyl 1 applic TOPICAL QAM 04/08/21 04/08/21 Unknown acetaminophen [Tylenol] 325 mg PO QID PRN 04/08/21 04/08/21 Unknown carvedilol 25 mg PO BID 04/08/21 04/08/21 Unknown uufzmplmlgyq-syowhauk-yabkqs 1 tab PO DAILY 04/08/21 04/08/21 Unknown [Centrum Silver] Past Medical History Medical History (Updated 04/08/21 @ 10:55 by Yasmin Rutherford PA-C) AAA (abdominal aortic aneurysm) 16mm x 7mm sacular aneurysm of infrarenal abdominal aorta per 01/22/21 CT scan Alcohol use 3-4 beers daily per nursing assessment Alcohol abuse per records Carotid artery disease COPD with emphysema Per records Dizziness Recently admitted 03/30/21-04/01/21 Possibly related to HTN Hypertension Ischemic ulcer of right foot [facility]s with [facility] PAD (peripheral artery disease) S/p stent to right LE February 2021 with [facility] Bilateral iliac artery stenosis Renal artery stenosis Per CT scan 12/[address] Baker Renal mass Left side- noted on 12/2020 CT scan - worrisome for RCC- pt will follow up as outpatient per 04/01/21 discharge summary Past Family History Family History Mother Diabetes Past Surgical History Surgical History H/O exploratory laparotomy (01/22/21) Exploratory laparotomy, oversew perforated duodenal ulcer, abdominal washout. Dr. Craig 01/22/2021 H/O tubal ligation H/O vascular surgery 2 stents to right leg [facility] February 2021 History of colonoscopy [place] teeth extracted Social History Smoking Status: Current every day smoker tobacco type: cigarettes Smoking cigarettes per day: 1 ppd Do You Dip or Chew Tobacco: No Hx Alcohol Use: Yes Alcohol type: beer alcohol intake frequency: 3 or more drinks per day Alcohol Intake Frequency Comment: 3-4 beers day Hx Substance Use: No substance use type: does not use Lab Results Anesthesia Preop Results Results Anesthesia Widget: WBC 7.59 K/uL (4.8-10.8) 03/30/21 Hgb 13.3 g/dL (12.0-16.0) 03/30/21 Hct 38.6 % (37-47) 03/30/21 Plt 233 K/uL (130-400) 03/30/21 Na 137 mmol/L (136-145) 03/31/21 K 3.7 mmol/L (3.5-5.1) 03/31/21 Cl 107 mmol/L (98-107) 03/31/21 CO2 25 mmol/L (21-32) 03/31/21 BUN 13 mg/dl (7-18) 03/31/21 Creat 0.58 mg/dl (0.6-1.2) L 03/31/21 Glucose Level 91 mg/dl (70-99) 03/31/21 PT 9.7 Seconds (9.0-12.0) 03/30/21 PTT 26.9 Seconds (21.0-31.0) 03/22/21 INR 1.0 (0.9-1.1) 03/30/21 Urine Color Yellow 03/30/21 Urine Appearance Clear (Clear) 03/30/21 Urine pH 6.0 (4.5-7.5) 03/30/21 Urine Specific [place] 1.008 (1.000-1.030) 03/30/21 Urine Protein Negative (Negative) 03/30/21 Urine Glucose (UA) Negative (Negative) 03/30/21 Urine Ketones Negative (Negative) 03/30/21 Urine Blood Negative (Negative) 03/30/21 Urine Nitrite Negative (Negative) 03/30/21 Urine Bilirubin Negative (Negative) 03/30/21 Urine Urobilinogen Negative (Negative) 03/30/21 Urine Leukocyte Esterase Negative (Negative) 03/30/21 Testing Laboratory Results 03/30/2021 = AST: 14 ALT: 18 ALK PHOS: 86 Electrocardiogram Date: 03/30/21 Findings: + NSR @ (80 bpm) Normal EKG per cardio Chest X-Ray Date: 03/30/21 Findings: + NAD and + cardiomegaly (Mild) There is pulmonary emphysema. There is no overt failure. There is no focal pulmonary consolidation. There are no significant pleural effusions Echocardiogram Date: 03/24/21 EF: >70% RWMA: + none Other Findings: + LVH (Moderate/concentric) Valvular Disease: + no significant valvular disease LV cavity is small. Compared with prior study on 01/24/2021no significant changes. Other Testing Brain MRI 03/30/2021 = no acute intracranial findings. Matter T2 hyperintense foci suggestive of mild small vessel disease. Neck CTA 03/30/2021 = focal high-grade stenosis of proximal right internal carotid artery with near complete occlusion (greater than 90% luminal narrowing). Approximately 60% focal stenosis of the proximal left internal carotid artery. High-grade stenosis at the origin of the right external carotid artery. Head CTA 03/30/2021 = no evidence of hemorrhage, mass-effect or acute territorial ischemia by CT criteria along the angiographic phase technique. Unremarkable CTA of the brain.
[~2021-04-13 10:52] MED LIST: LR 15ML/HR IV SCH; SODIUM CHLORIDE 0.9% 1000ML IV SCH
--- NOTE | 2021-04-13 11:39 | History & Physical Report ---
Date of Service April 13, 2021 History of Present Illness Primary Care Provider: LAKSHMI Garza March 31, 2021 Assessment & Plan (1) Carotid artery stenosis: Due to the severe stenosis present would recommend an elective CEA of the right carotid artery. I have discussed the risks options and benefits of the procedure with the patient. The patient understands the risks options and benefits and agrees to the procedure. She may be d/c'd from our standpoint on ASA and plavix. We will contact her to schedule her carotid endart. Thank you very much for letting us participate in the care of this patient. Laterality: right Qualified Code(s): I65.21 - Occlusion and stenosis of right carotid artery (2) Renal artery stenosis: Would follow this conservatively at this point. Would attempt to treat if her pressure is uncontrolled with 4 meds or she is showing signs of renal insufficiency. (3) Peripheral artery disease: this is being treated by Dr. Dias (4) AAA (abdominal aortic aneurysm) without rupture: We will order an ultrasound as an outpatient for follow up of this small saccular infrarenal aortic aneurysm. History of Present Illness Reason for Consultation: Severe right internal carotid artery stenosis Attending Physician: Brayden Meyer History of Present Illness This is 65-year-old female with a history of peripheral vascular occlusive disease with a right lower extremity intervention recently. She also has a history of COPD and hypertension. While at home she developed an episode of dizziness. This did not resolve. When she reached a point of becoming lightheaded and having a feeling of passing out, she went to the emergency room. She was admitted at that time. CT angiogram revealed 90% narrowing of her right internal carotid artery had a 60 to 70% narrowing of her left internal carotid artery. Allergies Allergy/AdvReac Type Severity Reaction Status Date / Time No Known Allergies Allergy Mild Verified 02/14/21 13:32 Home Medications Medication Instructions Recorded Confirmed Type atorvastatin 40 mg PO DAILY 30 Days #30 tab 02/01/21 03/30/21 Rx carvedilol 12.5 mg PO BID #30 tab 02/01/21 03/30/21 Rx pantoprazole [Protonix] 40 mg PO DAILY 28 Days #28 tab 02/01/21 03/30/21 Rx tramadol 50 mg tablet 50 mg PO TID PRN #30 tab 02/08/21 03/30/21 Rx collagenase clostridium histo. 250 1 applic TOPICAL DAILY 30 Days #30 02/23/21 03/30/21 Rx unit/gram topical ointment g lisinopril 10 mg tablet 10 mg PO QAM tab 03/07/21 03/30/21 History clopidogrel 75 mg PO QAM #30 tab 03/24/21 03/30/21 Rx Patient History Medical History COPD (chronic obstructive pulmonary disease) Hypertensive urgency Hypokalemia Peripheral artery disease Surgical History H/O exploratory laparotomy (01/22/21) Exploratory laparotomy, oversew perforated duodenal ulcer, abdominal washout. Dr. Craig 01/22/2021 H/O tubal ligation Social History Smoking Status: Current every day smoker Tobacco Type: Cigarettes Age Started Using Tobacco: 27; Cigarettes Per Day: 20; Hx Alcohol Use: Yes Alcohol type: beer Hx Substance Use: No Preferred Language: Indonesian Communication Ability: Effective Presiding Judge Required: No Beliefs That Will Affect Care: None marital status: Current Living Situation: Spouse current occupational status: employed current occupation: [employer] How many Children do You have: 2 Feels Safe at Home: Yes caffeine: Yes Assistive Devices: None Review of Systems Review of Systems: All systems reviewed & are unremarkable except as noted in HPI & below Physical Exam Constitutional: WD/WN, vitals as above Neck: trachea midline Respiratory: normal respiratory effort; no respiratory distress Auscultation: lungs clear to auscultation bilaterally Cardiovascular: Rate/Rhythm: regular rate and regular rhythm Vessels: + carotid bruit (right) and femoral pulses present; + posterior tibial pulses abnormal and + dorsalis pedis pulses abnormal Gastrointestinal (Abdomen): Inspection/Auscultation: abdomen normal to inspection; abdomen not distended Percussion/Palpation: abdomen soft; abdomen nontender Musculoskeletal: no cyanosis or clubbing, extremities motor strength 5/5 Skin: + ulcer (right foot) Neurologic: CN's II-XI intact bilaterally and moves all extremities Speech / Cognition: no expressive aphasia Motor/Sensory: no sensory deficit Psychiatric: Orientation: alert and oriented x 3 Results & Data ([facility]) Vital Signs (Past 12 Hours) Vital Signs Temp Pulse Pulse Resp BP BP Pulse Ox 03/31/21 11:10 36.7 C 68 18 162/81 H 96 03/31/21 09:00 73 03/31/21 07:17 36.7 C 74 18 199/99 H 95 03/31/21 03:49 193/83 H 03/31/21 03:13 36.5 C 82 18 207/92 H 96 Signed By:<Electronically signed by Cash Baker MD>03/31/21 1502 Created: 03/31/21 1450 The status of this report is Signed.Draft = Not yet reviewed or approved by Medical Physician.Signed = Reviewed and approved by Medical Physician. Allergies Allergy/AdvReac Type Severity Reaction Status Date / Time No Known Allergies Allergy Mild Verified 04/13/21 11:14 Home Medications Medication Instructions Recorded Confirmed Type atorvastatin 40 mg PO DAILY 30 Days #30 tab 02/01/21 04/13/21 Rx aspirin 81 mg PO QAM #90 tab 04/01/21 04/13/21 Rx clopidogrel 75 mg PO QAM #30 tab 04/01/21 04/13/21 Rx Santyl 1 applic TOPICAL QAM 04/08/21 04/13/21 History acetaminophen [Tylenol] 325 mg PO QID PRN 04/08/21 04/13/21 History carvedilol 25 mg PO BID 04/08/21 04/13/21 History nhdugxvojbbz-milbzssg-ennzza 1 tab PO DAILY 04/08/21 04/13/21 History [Centrum Silver] lisinopril 10 mg tablet 10 mg PO QAM #90 tab 04/11/21 04/13/21 Rx pantoprazole 40 mg tablet,delayed 40 mg PO BID #60 tab 04/11/21 04/13/21 Rx release Past Med/Surg History Medical History AAA (abdominal aortic aneurysm) 16mm x 7mm sacular aneurysm of infrarenal abdominal aorta per 01/22/21 CT scan Alcohol use 3-4 beers daily per nursing assessment Alcohol abuse per records Carotid artery disease COPD with emphysema Per records Dizziness Recently admitted 03/30/21-04/01/21 Possibly related to HTN Hypertension Ischemic ulcer of right foot Follows with Wound Clinic Left renal mass CT scan 12/2000- 1.9 x 1.1 cm exophytic heterogeneous mass within the left kidney PAD (peripheral artery disease) S/p stent to right LE February 2021 with [facility] Bilateral iliac artery stenosis Renal artery stenosis Per CT scan 12/[address] Baker Surgical History H/O exploratory laparotomy H/O exploratory laparotomy (01/22/21) Exploratory laparotomy, oversew perforated duodenal ulcer, abdominal washout. Dr. Craig 01/22/2021 H/O tubal ligation H/O vascular surgery 2 stents to right leg [facility] February 2021 History of colonoscopy [place] teeth extracted Family History Mother Diabetes Lung cancer Father Lung cancer Denies family history of Ovarian cancer Prostate cancer Myocardial infarction Breast cancer Colorectal cancer Social History Smoking Status: Current every day smoker Tobacco Type: Cigarettes Age Started Using Tobacco: 27; packs per day: 1; Cigarettes Per Day: 1 ppd; Second Hand Exposure: No; Do You Dip or Chew Tobacco: No; Tobacco Cessation Education Requested by Patient: No Hx Alcohol Use: Yes Alcohol type: beer Alcohol Intake Frequency: 4 or More x per/Week Alcohol Intake Frequency Comment: 2-3 beers daily Hx Substance Use: No Preferred Language: Indonesian Communication Ability: Effective Visual Impairment: Limited Hearing Ability: Normal Presiding Judge Required: No Beliefs That Will Affect Care: None marital status: Current Living Situation: Spouse current occupational status: employed current occupation: [employer] How many Children do You have: 2 Other Information That Helps Us Care for You: No Feels Safe at Home: Yes Safety Concerns: Feels Safe At This Time Childhood Exposure to Second-Hand Smoke: Yes caffeine: Yes during the past year weight has: remained stable Dental Care, Regularly: No Physical Activity Frequency: Does not Exercise Physical Activity Frequency Comment: on feet at work all day Seatbelt Use: always Sunscreen Use: No Assistive Devices: Denture - Upper, Denture - Lower and Glasses Results & Data ([facility]) Vital Signs (Past 12 Hours) Vital Signs Temp Pulse BP Pulse Ox 04/13/21 11:22 36.7 C 95 H 176/98 H 99
[2021-04-13 12:16] LABS: BUN Creatinine Ratio 21.2 (10-20); Calcium 9.5 mg/dl (8.5-10.1); Potassium 4.2 mmol/L (3.5-5.1)
[2021-04-13] MEDS ORDERED: THROMBIN FOR SOLN 20000 UNIT KIT ONE (12:33)
[2021-04-13] MEDS ORDERED: HEPARIN (PORCINE) 1000 UNIT/ML 10 ML (CATH LAB USE ONLY) ONE (12:33)
[2021-04-13] MEDS ORDERED: BUPIVACAINE/EPINEPHRINE 0.5% MPF 1:200,000 30 ML VIAL ONE (12:33)
[2021-04-13] MEDS ORDERED: GELATIN SPONGE SZ 100 ONE (12:33)
[2021-04-13] MEDS ORDERED: LIDOCAINE 1% LOCAL 20 ML VIAL ONE (12:33)
[2021-04-13] MEDS ORDERED: LIDOCAINE 2% 2 ML VIAL/AMP(20MG/ML) INFIL ONE (12:53)
[2021-04-13] MEDS ORDERED: PROPOFOL IV EMULSION 10 MG/ML 20 ML VIAL IV ONE (12:53)
[2021-04-13] MEDS ORDERED: MIDAZOLAM HCL 1 MG/ML 2ML VIAL ONE (12:53)
[2021-04-13] MEDS ORDERED: fentaNYL citrate 100 MCG/2 ML VIAL ONE (12:53)
[2021-04-13] MEDS: ceFAZolin 1000MG 1,000 MG/7.5 ML SYR IV SCH ×2 (13:10→15:54)
--- NOTE | 2021-04-13 13:35 | Communication Note ---
Date of Service: April 13, 2021 Patient with severe hypertension pre op as high as systolic of 310 Surgery cancelled. Will admit for BP control and reschedule her surgery for a later date.
[2021-04-13] MEDS ORDERED: ROCURONIUM BROMIDE 10 MG/ML 5 ML VIAL IV ONE (13:59)
[2021-04-13] MEDS ORDERED: NITROGLYCERIN 5 MG/ML 10 ML VIAL ONE (13:59)
[2021-04-13] MEDS ORDERED: ESMOLOL HCL INJ 10 MG/ML 10ML VIAL IV ONE (13:59)
[2021-04-13] MEDS ORDERED: ACETAMINOPHEN 325 MG TAB PO PRN ×2 (14:02→20:31)
--- NOTE | 2021-04-13 14:03 | Communication Note ---
Date of Service: April 13, 2021 Pt. into OR @ 5184. Arterial line transduced after zeroing. Pt w/suprasystemic BP , as high as 305/90 w/ mean 166. Discussed w/ Dr Baker , and case was niko gates . Pt was transferred to ICU for further BP management.Discussed w/ PT.. She appears to understand our concerns w/ uncontrolled BP.
[2021-04-13] MEDS ORDERED: carvediloL 12.5 MG TAB PO ONE (14:28)
--- NOTE | 2021-04-13 14:40 | Consultation ---
Date of Consultation April 13, 2021 Assessment & Plan (1) Hypertensive urgency: Amazingly the patient had NO end-organ symptoms when her systolic BPs were over 250 while awaiting her CEA. After transfer to ICU her systolics improved to the 170-190 range. I suspect that significant anxiety along with not having her usual medications early this am contributed to her HTN urgency. Shortly after seeing her I ordered 12.5mg of coreg x 1. With this her BP dropped significantly necessitating institution of IV fluid as precautionary measure. I am uncertain why her BP responded this way -- perhaps 2nd to volume depletion due to NPO status? Thus the IV fluids. Will continue with her coreg and lisinopril at home doses and adjust accordingly. (2) Carotid artery disease: right, >90%. left, ~60%. Was to have CEA today with Dr Ceja but surgery canceled due to the HTN urgency. To be rescheduled in the future. Cont statin, asa, plavix. (3) PAD (peripheral artery disease): carotid disease, renal artery stenosis, PAD of LEs, etc. cont asa, plavix, statin. (4) Alcohol use: daily consumption of beer, 3-4. during the previous hospital stay she had no etoh withdrawal. [id number] watch carefully for withdrawal symptoms. 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 can be followed by Dr Baker. (6) COPD with emphysema: wheezing on exam, but this is baseline, and she endorses no pulmonary symptoms today or dyspnea. cont albuterol prn. (7) Right foot ulcer: x 2. cont santyl's daily with dressing changes. (8) Tobacco abuse: provide nicoderm patch 21mg/day. (9) History of duodenal ulcer: with perforation requiring surgery 12/2020 cont PPI bid (higher dose due to dual-antiplatelet therapy) (10) DVT prophylaxis: if patient stays beyond tomorrow would add chemical DVT proph Thank you for this consult. Will follow with you. History of Present Illness Requesting Physician: Cash Baker MD Reason for Consultation: hypertensive urgency Attending Physician: Cash Baker MD History of Present Illness 65yo female - well known to me from her recent hospital stay from 03/30 to 6/4 for dizziness, HTN urgency, and mild COPD flare - presents from the pre-op holding area with hypertensive urgency. Patient was scheduled for right-sided CEA today by Dr Baker and presented this am to [facility] for such. She had elevated systolic BPs of 170 or higher upon arrival. She admits she was very nervous today and also had a cigarette about 1030 this am before coming into the hospital. An arterial line was placed by anesthesia, and by report her systolic BPs jaja to very high levels. Apparently her systolics were in the 270-300 range. Her CEA operation was canceled, and she was sent to the ICU. I saw the patient in room 112 of the ICU and she denied any complaints despite the severely elevated blood pressure. Her systolic BP during my bedside visit ranged from 170s to 220s. She states she did NOT take her coreg this am. She isn't certain if she took her lisinopril either. She did take all scheduled meds yesterday. Her BP at home yesterday was about 150/80. Following the recent hospitalization she had f/u with [facility] [place], and had returned to work. She works at [employer] in [place]. She states the dizziness she had had earlier this month was fully resolved and her recent COPD flare was also gone. Allergies Allergy/AdvReac Type Severity Reaction Status Date / Time No Known Allergies Allergy Mild Verified 04/13/21 11:14 Home Medications Medication Instructions Recorded Confirmed Type atorvastatin 40 mg PO DAILY 30 Days #30 tab 02/01/21 04/13/21 Rx aspirin 81 mg PO QAM #90 tab 04/01/21 04/13/21 Rx clopidogrel 75 mg PO QAM #30 tab 04/01/21 04/13/21 Rx Santyl 1 applic TOPICAL QAM 04/08/21 04/13/21 History acetaminophen [Tylenol] 325 mg PO QID PRN 04/08/21 04/13/21 History carvedilol 25 mg PO BID 04/08/21 04/13/21 History [id number]-zawjqxgz-ytaoqu 1 tab PO DAILY 04/08/21 04/13/21 History [Centrum Silver] lisinopril 10 mg tablet 10 mg PO QAM #90 tab 04/11/21 04/13/21 Rx pantoprazole 40 mg tablet,delayed 40 mg PO BID #60 tab 04/11/21 04/13/21 Rx release Patient History Medical History AAA (abdominal aortic aneurysm) 16mm x 7mm sacular aneurysm of infrarenal abdominal aorta per 01/22/21 CT scan Alcohol use 3-4 beers daily per nursing assessment Alcohol abuse per records Carotid artery disease COPD with emphysema Per records Dizziness Recently admitted 03/30/21-04/01/21 Possibly related to HTN Hypertension Ischemic ulcer of right foot Follows with [facility]ound [facility] Left renal mass CT scan 12/2000- 1.9 x 1.1 cm exophytic heterogeneous mass within the left kidney PAD (peripheral artery disease) S/p stent to right LE February 2021 with [facility] Bilateral iliac artery stenosis Renal artery stenosis Per CT scan 12/[address] Baker Surgical History H/O exploratory laparotomy H/O exploratory laparotomy (01/22/21) Exploratory laparotomy, oversew perforated duodenal ulcer, abdominal washout. Dr. Craig 01/22/2021 H/O tubal ligation H/O vascular surgery 2 stents to right leg [facility] February 2021 History of colonoscopy [place] teeth extracted Family History Mother Diabetes Lung cancer Hypertension Father Lung cancer PAD (peripheral artery disease) Denies family history of Ovarian cancer Prostate cancer Myocardial infarction Breast cancer Colorectal cancer Social History Smoking Status: Current every day smoker Tobacco Type: Cigarettes Age Started Using Tobacco: 27; packs per day: 1; Cigarettes Per Day: 1 ppd; Second Hand Exposure: No; Do You Dip or Chew Tobacco: No; Tobacco Cessation Education Requested by Patient: No Hx Alcohol Use: Yes Alcohol type: beer Alcohol Intake Frequency: 4 or More x per/Week Alcohol Intake Frequency Comment: 2-3 beers daily or more Hx Substance Use: No Preferred Language: Iranian Communication Ability: Effective Visual Impairment: Limited Hearing Ability: Normal 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: No Beliefs That Will Affect Care: None marital status: Current Living Situation: Spouse current occupational status: employed current occupation: [employer] How many Children do You have: 2 Other Information That Helps Us Care for You: No Feels Safe at Home: Yes Safety Concerns: Feels Safe At This Time Childhood Exposure to Second-Hand Smoke: Yes caffeine: Yes during the past year weight has: remained stable Dental Care, Regularly: No Physical Activity Frequency: Does not Exercise Physical Activity Frequency Comment: on feet at work all day Seatbelt Use: always Sunscreen Use: No Assistive Devices: Denture - Upper, Denture - Lower and Glasses Review of Systems Constitutional: no fever, no chills, no fatigue, no weakness and no anorexia Eyes: no worsening vision Ear, Nose, Mouth, Throat: no nasal congestion, no sore throat and no dysphagia Respiratory: + cough and + wheezing; no dyspnea Cardiovascular: no chest pain, no palpitations and no edema Gastrointestinal: no abdominal pain, no nausea and no vomiting Genitourinary: no dysuria Musculoskeletal: no back pain and no joint pain Integumentary: + non-healing lesions and + skin ulcer (right foot ) Neurologic: no localized weakness, no loss of sensation, no numbness, no radiating pain, no dizziness, no syncope and no headache(s) Psychiatric: + anxiety Endocrine: denies diabetes Hematologic / Lymphatic: no easy bleeding and no easy bruising Physical Exam Constitutional: + thin; no acute distress and no altered mental status looks the same as during the previous hospitalization Eyes: PERRL (2mm b/l ) ENMT: external ear and nose normal, oropharynx normal Mouth: + poor dentition Neck: trachea midline, no thyromegaly bruit - right neck Respiratory: no respiratory distress Auscultation: + wheezes (diffuse b/l ); no crackles Cardiovascular: Rate/Rhythm: regular rate and regular rhythm Heart Sounds: normal S1 and normal S2; no murmur Vessels: posterior tibial pulses present and dorsalis pedis pulses present; no JVD Extremities: + edema (trace right foot) Gastrointestinal (Abdomen): normal bowel sounds, soft, nontender, no hepatosplenomegaly Musculoskeletal: Extremities: + clubbing Skin: ulceration x 2 on dorsum of right foot; larger ulcer is near the first toe; mild exudate, no drainage. smaller ulcer near 5th toe, no drainage. neither with erythema. Neurologic: deep tendon reflexes 2+ bilaterally and moves all extremities Psychiatric: A+Ox3, euthymic affect Lymphatic: no cervical lymphadenopathy Results & Data ([facility]) Vital Signs (Past 12 Hours) Vital Signs Temp Pulse Pulse Resp BP BP Pulse Ox 04/13/21 14:02 85 24 93 04/13/21 13:46 86 25 H 178/98 H 97 04/13/21 12:10 85 20 219/112 H 97 04/13/21 11:22 36.7 C 95 H 176/98 H 99 Laboratory Results Labs 04/13/21 04/13/21 04/13/21 11:22 11:22 Unknown Sodium 136 Potassium 4.2 Chloride 101 Carbon Dioxide 27 Anion Gap 8.0 BUN 14 Creatinine 0.66 Est Cr Clr Drug Dosing 61.0 Est GFR ( Amer) 109.0 Est GFR (Non-Af Amer) 94.0 BUN/Creatinine Ratio 21.2 H Glucose 107 H Calcium 9.5 Specimen Hemolysis COVID-19 Eval Order Covid19 [facility] SARS-CoV-2, RNA, NAAT Blood Type O Negative Antibody Screen NEGATIVE 04/13/21 Unknown Sodium Potassium Chloride Carbon Dioxide Anion Gap BUN Creatinine Est Cr Clr Drug Dosing Est GFR ( Amer) Est GFR (Non-Af Amer) BUN/Creatinine Ratio Glucose Calcium Specimen Hemolysis COVID-19 Eval Order SARS-CoV-2, RNA, NAAT NEGATIVE Blood Type Antibody Screen PG Care Time/CCT Total # of Minutes Spent Total Time Spent with Patient: Total time spent is greater than 50% in coordination of care (as documented) at patient's floor/unit and/or counseling patient: Coding Level of Care Code 97977 Inpt Consult Level 4 Diagnoses Hypertensive urgency I16.0 Carotid artery disease I65.23 Carotid artery disease type: stenosis Laterality: bilateral PAD (peripheral artery disease) I73.9 Alcohol use Z72.89 AAA (abdominal aortic aneurysm) I71.4 Presence of rupture: without rupture COPD with emphysema J43.9 Emphysema type: unspecified Right foot ulcer L97.519 Non-pressure ulcer stage: unspecified non-pressure ulcer stage Tobacco abuse Z72.0 History of duodenal ulcer Z87.19 DVT prophylaxis Z29.9 (1) AAA (abdominal aortic aneurysm) Presence of rupture: without rupture Qualified Code(s): I71.4 - Abdominal aortic aneurysm, without rupture (2) COPD with emphysema Emphysema type: unspecified Qualified Code(s): J43.9 - Emphysema, unspecified (3) Carotid artery disease Carotid artery disease type: stenosis Laterality: bilateral Qualified Code(s ): I65.23 - Occlusion and stenosis of bilateral carotid arteries (4) Right foot ulcer Non-pressure ulcer stage: unspecified non-pressure ulcer stage Qualified Code(s): L97.519 - Non-pressure chronic ulcer of other part of right foot with unspecified severity
[2021-04-13] MEDS: NICOTINE 21 MG/24 HR TDSY TD SCH (15:04)
[2021-04-13] MEDS ORDERED: LACTATED RINGER'S 500 ML IV ONE (15:31)
[2021-04-13] MEDS: LACTATED RINGER'S 1,000 ML IV SCH ×2 (15:54→23:29)
--- NOTE | 2021-04-13 17:18 | Critical Care Consultation ---
Date of Consultation April 13, 2021 Assessment & Plan (1) Hypertensive urgency: 65-year-old female with a past medical history of peripheral vascular disease, COPD, hypertension who presented to the hospital to undergo planned right carotid endarterectomy. She was brought to the ICU due to hypertensive urgency. Hypertensive urgency: Blood pressures are much better controlled at present. Carvedilol restarted. Will restart lisinopril possibly tomorrow. We do not want to drop her blood pressures too substantially as this can precipitate a stroke. She is very stable at present. I discussed with the hospitalist. Her art line has been removed. She is stable for transfer to the floor. She can likely be discharged home tomorrow. Dr. Baker notes that he will plan to perform an endarterectomy in 1 to 2 weeks. Thank you for the consult. (2) PAD (peripheral artery disease): (3) Renal artery stenosis: History of Present Illness Reason for Consultation: Hypertensive urgency Attending Physician: Cash Baker MD History of Present Illness 65-year-old female with a past medical history of peripheral vascular disease, COPD and coronary artery disease who presented to the hospital today to undergo endarterectomy. An order line was placed in the OR and she was found to be profoundly hypertensive with systolic blood pressures in the 300s. She was given 15 mg of IV labetalol with improvement of her systolic blood pressures to the 170s and 180s range. Patient denied any symptoms throughout all of this. She was brought to the ICU for further management of her hypertension. Surgery was not completed due to her hypertension and risk of stroke. She is tolerating her diet currently and denies any complaint. She was given an additional 25 mg of Coreg today. Briefly, her blood pressure did drop to the systolics of 100 range. Her blood pressure is currently 143/78. She notes that she did not take any of her home antihypertensives today as she misunderstood that she was not to take medications prior to her surgery. Allergies Allergy/AdvReac Type Severity Reaction Status Date / Time No Known Allergies Allergy Mild Verified 04/13/21 11:14 Home Medications Medication Instructions Recorded Confirmed Type atorvastatin 40 mg PO DAILY 30 Days #30 tab 02/01/21 04/13/21 Rx aspirin 81 mg PO QAM #90 tab 04/01/21 04/13/21 Rx clopidogrel 75 mg PO QAM #30 tab 04/01/21 04/13/21 Rx Santyl 1 applic TOPICAL QAM 04/08/21 04/13/21 History acetaminophen [Tylenol] 325 mg PO QID PRN 04/08/21 04/13/21 History carvedilol 25 mg PO BID 04/08/21 04/13/21 History [id number]-[id number]-[id number] 1 tab PO DAILY 04/08/21 04/13/21 History [Centrum Silver] lisinopril 10 mg tablet 10 mg PO QAM #90 tab 04/11/21 04/13/21 Rx pantoprazole 40 mg tablet,delayed 40 mg PO BID #60 tab 04/11/21 04/13/21 Rx release Patient History Medical History AAA (abdominal aortic aneurysm) 16mm x 7mm sacular aneurysm of infrarenal abdominal aorta per 01/22/21 CT scan Alcohol use 3-4 beers daily per nursing assessment Alcohol abuse per records Carotid artery disease COPD with emphysema Per records Dizziness Recently admitted 03/30/21-04/01/21 Possibly related to HTN Hypertension Ischemic ulcer of right foot Follows with Wound Clinic Left renal mass CT scan 12/2000- 1.9 x 1.1 cm exophytic heterogeneous mass within the left kidney PAD (peripheral artery disease) S/p stent to right LE February 2021 with [facility] Bilateral iliac artery stenosis Renal artery stenosis Per CT scan 12/[address] Baker Surgical History H/O exploratory laparotomy H/O exploratory laparotomy (01/22/21) Exploratory laparotomy, oversew perforated duodenal ulcer, abdominal washout. Dr. Craig 01/22/2021 H/O tubal ligation H/O vascular surgery 2 stents to right leg [facility] February 2021 History of colonoscopy [place] teeth extracted Family History Mother Diabetes Lung cancer Hypertension Father Lung cancer PAD (peripheral artery disease) Denies family history of Ovarian cancer Prostate cancer Myocardial infarction Breast cancer Colorectal cancer Social History Smoking Status: Current every day smoker Tobacco Type: Cigarettes Age Started Using Tobacco: 27; packs per day: 1; Cigarettes Per Day: 1 ppd; Second Hand Exposure: No; Do You Dip or Chew Tobacco: No; Tobacco Cessation Education Requested by Patient: No Hx Alcohol Use: Yes Alcohol type: beer Alcohol Intake Frequency: 4 or More x per/Week Alcohol Intake Frequency Comment: 2-3 beers daily or more Hx Substance Use: No Preferred Language: Nepali Communication Ability: Effective Visual Impairment: Limited Hearing Ability: Normal School Boat 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 Required: No Beliefs That Will Affect Care: None marital status: Current Living Situation: Spouse current occupational status: employed current occupation: [employer] How many Children do You have: 2 Other Information That Helps Us Care for You: No Feels Safe at Home: Yes Safety Concerns: Feels Safe At This Time Childhood Exposure to Second-Hand Smoke: Yes caffeine: Yes during the past year weight has: remained stable Dental Care, Regularly: No Physical Activity Frequency: Does not Exercise Physical Activity Frequency Comment: on feet at work all day Seatbelt Use: always Sunscreen Use: No Assistive Devices: Denture - Upper, Denture - Lower and Glasses Review of Systems Review of Systems: All systems reviewed & are unremarkable except as noted in HPI & below Physical Exam Constitutional: + thin and + frail appearing Eyes: PERRL, conjunctivae normal, anicteric sclerae ENMT: external ear and nose normal, oropharynx normal Respiratory: normal respiratory effort, lungs clear to auscultation Cardiovascular: RRR, no murmur, no edema Gastrointestinal (Abdomen): normal bowel sounds, soft, nontender, no hepato splenomegaly Neurologic: PERRL, EOMI, accommodation nl, no face palsy, no dysarthria Psychiatric: A+Ox3, euthymic affect Results & Data Results & Data ([facility]) Vital Signs (Past 12 Hours) Vital Signs Temp Pulse Pulse Resp BP BP Pulse Ox 04/13/21 14:02 85 24 93 04/13/21 13:46 86 25 H 178/98 H 97 04/13/21 12:10 85 20 219/112 H 97 04/13/21 11:22 98.1 F 95 H 176/98 H 99 vital signs, labs and imaging reviewed. Coding Level of Care Code 56376 Inpt Consult Level 5 Diagnoses Hypertensive urgency I16.0 PAD (peripheral artery disease) I73.9 Renal artery stenosis I70.1
[2021-04-13] MEDS: carvediloL 25 MG TAB PO SCH (21:22)
[2021-04-13] MEDS: PANTOprazole 40 MG TAB PO SCH (21:22)
[2021-04-14] MEDS: ACETAMINOPHEN 325 MG TAB PO PRN (03:35)
[2021-04-14] MEDS ORDERED: LABETALOL HCL IV 5 MG/ML 20ML IV STA (04:15)
[2021-04-14] MEDS ORDERED: LABETALOL HCL IV 5 MG/ML 20ML IV ONE (04:22)
[2021-04-14] MEDS ORDERED: hydrALAZINE HCL 20 MG/ML VIAL IV STA (05:10)
[2021-04-14] MEDS ORDERED: hydrALAZINE HCL 20 MG/ML VIAL ONE (05:18)
[2021-04-14] MEDS ORDERED: lisinopril 10 MG TAB PO SCH (09:00)
[2021-04-14] MEDS: ASPIRIN 81 MG ECTAB PO SCH (09:38)
[2021-04-14] MEDS: PANTOprazole 40 MG TAB PO SCH ×2 (09:38→19:35)
[2021-04-14] MEDS: CEROVITE ADV FORMULA TAB PO SCH (09:38)
[2021-04-14] MEDS: ATORVASTATIN 40 MG TAB PO SCH (09:38)
[2021-04-14] MEDS: CLOPIDOGREL BISULFATE 75 MG TAB PO SCH (09:38)
[2021-04-14] MEDS: NICOTINE 21 MG/24 HR TDSY TD SCH (09:39)
[2021-04-14] MEDS: COLLAGENASE OINT 30 GM TUBE TOP SCH (09:39)
--- NOTE | 2021-04-14 13:51 | Nephrology Consultation ---
Date of Consultation April 14, 2021 Assessment & Plan (1) Hypertensive urgency: 65 years old female with extensive peripheral vascular disease with history of more than 30 years smoking including carotid artery stenosis, abdominal aortic aneurysm, right renal artery stenosis and extensive donald cifications stenosis of iliac arteries. Admitted for elective CEA which was canceled because of hypertensive urgency. Blood pressure seems to have started to improve, over last few hours systolic blood pressure staying in 150s to 160s. --increase lisinopril to 20 mg p.o. daily, extra 10 mg now, increase to 40 mg as needed. --eventually spironolactone can be added if BP remain poorly controlled will follow Thank you for allowing me to participate in your patient's care. It was a pleasure to see Yoselin (2) Renal artery stenosis: (3) Left renal mass: (4) PAD (peripheral artery disease): History of Present Illness Reason for Consultation: Hypertensive urgency Attending Physician: Tl Gibson History of Present Illness Daniela Renee is a 65-year-old female with past medical history significant for hypertension, significant peripheral vascular disease admitted to the hospital with hypertensive urgency. Nephrology consult was requested to manage blood pressure with history of right renal artery stenosis. EMR records reviewed in detail during patient's visit. Yoselin was initially admitted to the hospital 3 weeks ago with generalized weakness associated with lightheaded, dizziness, headache. Workup revealed more than 90% right internal carotid artery stenosis. She presented on 04/13/2021 to have elective CEA however the procedure was canceled as her blood pressure was 219/112 and she was admitted to the hospital for further management. At home she was on carvedilol 25 mg twice a day and lisinopril 10 mg daily. It was concluded that blood pressure was significantly elevated because of stress and missed blood pressure medication. She was given labetalol and then carvedilol and with the combination her blood pressure dropped rapidly to 96/60 She was also noted to have sinus pauses on EKG. Eventually her blood pressure somewhat stabilized however continues to be elevated SBP around 160s to 190s however it has been slowly improving and by noon her systolic came down to 145. She has normal renal function with baseline creatinine 0.6-0.7. During hospitalization in December for gastric ulcer perforation, CT A/P with contrast in December 2019 showed 16 x 7 mm saccular aneurysm in infrarenal abdominal aorta, severe stenosis in proximal right renal artery, left renal artery is patent. Focal severe stenosis in proximal left common iliac artery and extensive calcified plaque within the aorta and iliac arteries. The right internal iliac artery and proximal left internal iliac arteries were occluded. There was a 1.9 cm exophytic heterogeneous mass in interpolar region of the left kidney. She had revascularization with stent in bilateral iliac arteries. Has more than 30 years smoking history. F/H significant for hypertension but no CAD, CVA, CKD or ESRD. 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 She has been occasionally having some headache and dizziness, no CP, SOB, flank pain. Allergies Allergy/AdvReac Type Severity Reaction Status Date / Time No Known Allergies Allergy Mild Verified 04/13/21 11:14 Home Medications Medication Instructions Recorded Confirmed Type atorvastatin 40 mg PO DAILY 30 Days #30 tab 02/01/21 04/13/21 Rx aspirin 81 mg PO QAM #90 tab 04/01/21 04/13/21 Rx clopidogrel 75 mg PO QAM #30 tab 04/01/21 04/13/21 Rx Santyl 1 applic TOPICAL QAM 04/08/21 04/13/21 History acetaminophen [Tylenol] 325 mg PO QID PRN 04/08/21 04/13/21 History carvedilol 25 mg PO BID 04/08/21 04/13/21 History sbpbmhufhszl-mvchihvc-gmvsti 1 tab PO DAILY 04/08/21 04/13/21 History [Centrum Silver] lisinopril 10 mg tablet 10 mg PO QAM #90 tab 04/11/21 04/13/21 Rx pantoprazole 40 mg tablet,delayed 40 mg PO BID #60 tab 04/11/21 04/13/21 Rx release Patient History Medical History AAA (abdominal aortic aneurysm) 16mm x 7mm sacular aneurysm of infrarenal abdominal aorta per 01/22/21 CT scan Alcohol use 3-4 beers daily per nursing assessment Alcohol abuse per records Carotid artery disease COPD with emphysema Per records Dizziness Recently admitted 03/30/21-04/01/21 Possibly related to HTN Hypertension Ischemic ulcer of right foot Follows with [facility]ound [facility] Left renal mass CT scan 12/2000- 1.9 x 1.1 cm exophytic heterogeneous mass within the left kidney PAD (peripheral artery disease) S/p stent to right LE February 2021 with SANDY Bilateral iliac artery stenosis Renal artery stenosis Per CT scan 12/[address] Baker Surgical History H/O exploratory laparotomy H/O exploratory laparotomy (01/22/21) Exploratory laparotomy, oversew perforated duodenal ulcer, abdominal washout. Dr. Craig 01/22/2021 H/O tubal ligation H/O vascular surgery 2 stents to right leg [facility] February 2021 History of colonoscopy [place] teeth extracted Family History Mother Diabetes Lung cancer Hypertension Father Lung cancer PAD (peripheral artery disease) Denies family history of Ovarian cancer Prostate cancer Myocardial infarction Breast cancer Colorectal cancer Social History Smoking Status: Current every day smoker Tobacco Type: Cigarettes Age Started Using Tobacco: 27; packs per day: 1; Cigarettes Per Day: 1 ppd; Second Hand Exposure: No; Do You Dip or Chew Tobacco: No; Tobacco Cessation Education Requested by Patient: No Hx Alcohol Use: Yes Alcohol type: beer Alcohol Intake Frequency: 4 or More x per/Week Alcohol Intake Frequency Comment: 2-3 beers daily or more Hx Substance Use: No Preferred Language: Yoruba Communication Ability: Effective Visual Impairment: Limited Hearing Ability: Normal Spa Experience Coordinator Required: No Beliefs That Will Affect Care: None marital status: Current Living Situation: Spouse current occupational status: employed current occupation: [employer] How many Children do You have: 2 Other Information That Helps Us Care for You: No Feels Safe at Home: Yes Safety Concerns: Feels Safe At This Time Childhood Exposure to Second-Hand Smoke: Yes caffeine: Yes during the past year weight has: remained stable Dental Care, Regularly: No Physical Activity Frequency: Does not Exercise Physical Activity Frequency Comment: on feet at work all day Seatbelt Use: always Sunscreen Use: No Assistive Devices: Denture - Upper, Denture - Lower and Glasses Review of Systems Review of Systems: All systems reviewed & are unremarkable except as noted in Subjective Neurologic: + dizziness and + headache(s) Physical Exam Constitutional: WD/WN, vitals as above well developed and well nourished; no acute distress Eyes: PERRL, conjunctivae normal, anicteric sclerae ENMT: external ear and nose normal, oropharynx normal Ears: no hearing impairment Neck: trachea midline Respiratory: normal respiratory effort, lungs clear to auscultation no cough Auscultation: no crackles, no rales and no wheezes Cardiovascular: RRR, no murmur, no edema Gastrointestinal (Abdomen): normal bowel sounds, soft, nontender, no hepatosplenomegaly Percussion/Palpation: abdomen nontender, no guarding and abdomen not rigid Musculoskeletal: Extremities: extremities normal to inspection Gait: normal gait Skin: no rashes, warm and dry Neurologic: moves all extremities and awake Psychiatric: A+Ox3, euthymic affect Results & Data ([facility]) Vital Signs (Past 12 Hours) Vital Signs Temp Pulse Pulse Resp BP Pulse Ox 04/14/21 11:22 36.6 C 80 19 167/66 H 95 04/14/21 08:00 94 H 04/14/21 07:41 37.2 C 80 21 173/87 H 93 04/14/21 05:47 85 161/70 H 04/14/21 05:40 71 167/84 H 04/14/21 05:05 73 182/84 H 04/14/21 05:00 193/80 H 04/14/21 03:52 187/84 H 04/14/21 03:37 36.6 C 72 21 191/83 H 94 PG Care Time/CCT Total # of Minutes Spent Total Time Spent with Patient: Total time spent is greater than 50% in coordination of care (as documented) at patient's floor/unit and/or counseling patient: Coding Level of Care Code 20691 Inpt Consult Level 4 Diagnoses Hypertensive urgency I16.0 Renal artery stenosis I70.1 Left renal mass N28.89 PAD (peripheral artery disease) I73.9
[2021-04-14] MEDS ORDERED: lisinopril 10 MG TAB PO ONE (14:06)
--- NOTE | 2021-04-14 14:34 | Cardiology Consultation ---
Date of Consultation April 14, 2021 Assessment & Plan (1) Ventricular asystolia: The patient did have an episode of ventricular asystole for up to 4 seconds. She actually had 3 episodes which occurred several minutes apart early this morning. There is evidence of sinus node slowing leading up to these episodes. It is more difficult to discern if there was any change in the OH interval. She cannot recall the episodes or any symptoms associated with these episodes. I am waiting for confirmation, but suspect that the patient was sleeping at the time. She reported sleeping early this morning because she was up all night. These episodes are taken in the context of recent admission for dizziness and presyncope. However, she was monitored throughout that admission. She had persistent symptoms without evidence of rhythm disturbance. Alcohol abuse and hypertension as well as the diagnosis of severe carotid stenosis was thought to play a role in her symptoms. She has a narrow complex QRS. I believe these episodes would likely vagally mediated. She did receive several additional doses of beta-blockade yesterday in an attempt to control her blood pressure. I think if she is ambulatory with normal heart rates no additional intervention or monitoring is currently required. History of Present Illness Reason for Consultation: Ventricular asystole Requesting Physician: Arthur Attending Physician: Tl Gibson History of Present Illness The patient is a 65-year-old woman with a history of peripheral vascular disease who was scheduled for an elective right carotid endarterectomy yesterday. She was noted to be severely hypertensive and briefly admitted to the intensive care unit for urgent treatment. She is subsequently transferred to the telemetry mancuso and on monitoring early this morning was noted to have episodes of ventricular asystole. The patient states she has been feeling well in general. She was admitted to the hospital in early March for symptoms of profound dizziness and weakness. She was on telemetry at that time and no specific rhythm disturbance was noted. Other than that episode she does not endorse symptoms of dizziness or lightheadedness and cannot recall ever having a syncopal episode. She appears to be active working regularly and doing routine housework. She does not do routine exercise or perform severely vigorous activity. She does not seem to have exertional symptoms. Allergies Allergy/AdvReac Type Severity Reaction Status Date / Time No Known Allergies Allergy Mild Verified 04/13/21 11:14 Home Medications Medication Instructions Recorded Confirmed Type atorvastatin 40 mg PO DAILY 30 Days #30 tab 02/01/21 04/13/21 Rx aspirin 81 mg PO QAM #90 tab 04/01/21 04/13/21 Rx clopidogrel 75 mg PO QAM #30 tab 04/01/21 04/13/21 Rx Santyl 1 applic TOPICAL QAM 04/08/21 04/13/21 History acetaminophen [Tylenol] 325 mg PO QID PRN 04/08/21 04/13/21 History carvedilol 25 mg PO BID 04/08/21 04/13/21 History adnquvceykir-nqniilsk-otokzf 1 tab PO DAILY 04/08/21 04/13/21 History [Centrum Silver] lisinopril 10 mg tablet 10 mg PO QAM #90 tab 04/11/21 04/13/21 Rx pantoprazole 40 mg tablet,delayed 40 mg PO BID #60 tab 04/11/21 04/13/21 Rx release Patient History Medical History AAA (abdominal aortic aneurysm) 16mm x 7mm sacular aneurysm of infrarenal abdominal aorta per 01/22/21 CT scan Alcohol use 3-4 beers daily per nursing assessment Alcohol abuse per records Carotid artery disease COPD with emphysema Per records Dizziness Recently admitted 03/30/21-04/01/21 Possibly related to HTN Hypertension Ischemic ulcer of right foot Follows with Wound Clinic Left renal mass CT scan 12/2000- 1.9 x 1.1 cm exophytic heterogeneous mass within the left kidney PAD (peripheral artery disease) S/p stent to right LE February 2021 with SANDY Bilateral iliac artery stenosis Renal artery stenosis Per CT scan 12/[address] Baker Surgical History H/O exploratory laparotomy H/O exploratory laparotomy (01/22/21) Exploratory laparotomy, oversew perforated duodenal ulcer, abdominal washout. Dr. Craig 01/22/2021 H/O tubal ligation H/O vascular surgery 2 stents to right leg [facility] February 2021 History of colonoscopy [place] teeth extracted Family History Mother Diabetes Lung cancer Hypertension Father Lung cancer PAD (peripheral artery disease) Denies family history of Ovarian cancer Prostate cancer Myocardial infarction Breast cancer Colorectal cancer Social History Smoking Status: Current every day smoker Tobacco Type: Cigarettes Age Started Using Tobacco: 27; packs per day: 1; Cigarettes Per Day: 1 ppd; Second Hand Exposure: No; Do You Dip or Chew Tobacco: No; Tobacco Cessation Education Requested by Patient: No Hx Alcohol Use: Yes Alcohol type: beer Alcohol Intake Frequency: 4 or More x per/Week Alcohol Intake Frequency Comment: 2-3 beers daily or more Hx Substance Use: No Preferred Language: Sinhala Communication Ability: Effective Visual Impairment: Limited Hearing Ability: Normal Wheel Fitter Required: No Beliefs That Will Affect Care: None marital status: Current Living Situation: Spouse current occupational status: employed current occupation: [employer] How many Children do You have: 2 Other Information That Helps Us Care for You: No Feels Safe at Home: Yes Safety Concerns: Feels Safe At This Time Childhood Exposure to Second-Hand Smoke: Yes caffeine: Yes during the past year weight has: remained stable Dental Care, Regularly: No Physical Activity Frequency: Does not Exercise Physical Activity Frequency Comment: on feet at work all day Seatbelt Use: always Sunscreen Use: No Assistive Devices: Denture - Upper, Denture - Lower and Glasses Review of Systems Review of Systems: All systems reviewed & are unremarkable except as noted in HPI & below Physical Exam Physical Exam: She is alert and oriented x3. Mood affect appear normal. She answered all questions appropriately. HEENT: Sclerae are anicteric. Pupils are equal and reactive to light and accommodation. Extraocular movements were intact. Neuro: Cranial nerves intact Lungs: Lungs are clear to auscultation bilaterally. There are no rales wheezes or rhonchi. She has normal respiratory effort without use of accessory muscles. There is normal pulmonary excursion. Cardiac: The rhythm was regular. S1 and S2 were normal. There are no murmurs on examination. The PMI was not markedly displaced on palpation. Abdomen: The abdomen was soft and nontender. Extremities: Palpable left radial pulse. Right radial was bandage. Right radial hematoma. There is no evidence cyanosis or clubbing. There was no evidence of significant peripheral edema bilaterally. Skin: There are no rashes noted on examination today. Results & Data ([facility]) Vital Signs (Past 12 Hours) Vital Signs Temp Pulse Pulse Resp BP Pulse Ox 04/14/21 11:22 36.6 C 80 19 167/66 H 95 04/14/21 08:00 94 H 04/14/21 07:41 37.2 C 80 21 173/87 H 93 04/14/21 05:47 85 161/70 H 04/14/21 05:40 71 167/84 H 04/14/21 05:05 73 182/84 H 04/14/21 05:00 193/80 H 04/14/21 03:52 187/84 H 04/14/21 03:37 36.6 C 72 21 191/83 H 94 Diagnostic Findings Echocardiogram performed 03/24/2021: Normal LV systolic function with ejection fraction greater than 70%. Moderate LVH. PG Care Time/CCT Total # of Minutes Spent Total Time Spent with Patient: Total time spent is greater than 50% in coordination of care (as documented) at patient's floor/unit and/or counseling patient: Coding Level of Care Code 32333 Office/OBS Consult Lvl 4 Diagnoses Ventricular asystolia I46.9
[2021-04-14] MEDS: carvediloL 25 MG TAB PO SCH ×2 (14:38→19:34)
--- NOTE | 2021-04-14 22:06 | Hospitalist Progress Note ---
Date of Service April 14, 2021 Assessment & Plan (1) Hypertensive urgency: Amazingly the patient had NO end-organ symptoms when her systolic BPs were over 250 while awaiting her CEA. After transfer to ICU her systolics improved to the 170-190 range. I suspect that significant anxiety along with not having her usual medications early this am contributed to her HTN urgency. Shortly after seeing her I ordered 12.5mg of coreg x 1. With this her BP dropped significantly necessitating institution of IV fluid as precautionary measure. I am uncertain why her BP responded this way -- perhaps 2nd to volume depletion due to NPO status? Thus the IV fluids. Will continue with her coreg and lisinopril at home doses and adjust accordingly. On 04/14 Patient is now in PCU. Patient though had an episode of pauses. A 3 second pause and a 4 second pause. Will consult cardiology. Patient though has been asymptomatic since. Will not increase coreg to 25 mg. (2) Carotid artery disease: right, >90%. left, ~60%. Was to have CEA today with Dr Ceja but surgery canceled due to the HTN urgency. To be rescheduled in the future. Cont statin, asa, plavix. (3) PAD (peripheral artery disease): carotid disease, renal artery stenosis, PAD of LEs, etc. cont asa, plavix, statin. (4) Alcohol use: daily consumption of beer, 3-4. during the previous hospital stay she had no etoh withdrawal. [id number] watch carefully for withdrawal symptoms. 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 can be followed by Dr Baker. (6) COPD with emphysema: wheezing on exam, but this is baseline, and she endorses no pulmonary symptoms today or dyspnea. cont albuterol prn. (7) Right foot ulcer: x 2. cont santyl's daily with dressing changes. (8) Tobacco abuse: provide nicoderm patch 21mg/day. (9) History of duodenal ulcer: with perforation requiring surgery 12/2020 cont PPI bid (higher dose due to dual-antiplatelet therapy) (10) DVT prophylaxis: if patient stays beyond tomorrow would add chemical DVT proph Thank you for this consult. Will follow with you. Admission and Anticipated Discharge Date Admission Date: April 13, 2021 Subjective 65 yo female reports feeling well. She has no new complaints. Review of Systems Review of Systems: All systems reviewed & are unremarkable except as noted in HPI & below Physical Exam Physical Exam: Constitutional: + thin; no acute distress and no altered mental status looks the same as during the previous hospitalization Eyes: PERRL (2mm b/l ) ENMT: external ear and nose normal, oropharynx normal Mouth: + poor dentition Neck: trachea midline, no thyromegaly bruit - right neck Respiratory: no respiratory distress Auscultation: + wheezes (diffuse b/l ); no crackles Cardiovascular: Rate/Rhythm: regular rate and regular rhythm Heart Sounds: normal S1 and normal S2; no murmur Vessels: posterior tibial pulses present and dorsalis pedis pulses present; no JVD Extremities: + edema (trace right foot) Gastrointestinal (Abdomen): normal bowel sounds, soft, nontender, no hepatosplenomegaly Musculoskeletal: Extremities: + clubbing Skin: ulceration x 2 on dorsum of right foot; larger ulcer is near the first toe; mild exudate, no drainage. smaller ulcer near 5th toe, no drainage. neither with erythema. Neurologic: deep tendon reflexes 2+ bilaterally and moves all extremities Psychiatric: A+Ox3, euthymic affect Lymphatic: no cervical lymphadenopathy Results & Data Results & Data ([facility]) Vital Signs (Past 12 Hours) Vital Signs Temp Pulse Pulse Resp BP BP Pulse Ox 04/14/21 19:00 37 C 82 18 140/77 94 04/14/21 16:00 82 04/14/21 15:41 36.8 C 76 18 147/67 H 94 04/14/21 11:22 36.6 C 80 19 167/66 H 95 PG Care Time/CCT Total # of Minutes Spent Total Time Spent with Patient: Total time spent is greater than 50% in coordination of care (as documented) at patient's floor/unit and/or counseling patient: Coding Level of Care Code 79702 Subseq Hosp Care Lvl 3 Diagnoses Hypertensive urgency I16.0 Carotid artery disease I65.23 Carotid artery disease type: stenosis Laterality: bilateral PAD (peripheral artery disease) I73.9 Alcohol use Z72.89 AAA (abdominal aortic aneurysm) I71.4 Presence of rupture: without rupture COPD with emphysema J43.9 Emphysema type: unspecified Right foot ulcer L97.519 Non-pressure ulcer stage: unspecified non-pressure ulcer stage Tobacco abuse Z72.0 History of duodenal ulcer Z87.19 DVT prophylaxis Z29.9 Time Spent (min) 35 (1) AAA (abdominal aortic aneurysm) Presence of rupture: without rupture Qualified Code(s): I71.4 - Abdominal aortic aneurysm, without rupture (2) COPD with emphysema Emphysema type: unspecified Qualified Code(s): J43.9 - Emphysema, unspecified (3) Carotid artery disease Carotid artery disease type: stenosis Laterality: bilateral Qualified Code(s): I65.23 - Occlusion and stenosis of bilateral carotid arteries (4) Right foot ulcer Non-pressure ulcer stage: unspecified non-pressure ulcer stage Qualified C ode(s): L97.519 - Non-pressure chronic ulcer of other part of right foot with unspecified severity
[2021-04-15] MEDS: ACETAMINOPHEN 325 MG TAB PO PRN (04:58)
[2021-04-15 06:47] LABS: Hemoglobin 12.8 g/dL (12.0-16.0); Mean Corpuscular Hemoglobin 34.7 pg (25-34); Mean Corpuscular Hgb Conc 33.7 g/dL (32-36); Mean Platelet Volume 8.5 fL (7.4-10.4); Platelet Count 235 K/uL (130-400); RDW Coefficient of Variation 14.9 % (11.5-14.5); RDW Standard Deviation 56.3 fL (36.4-46.3); Red Blood Count 3.69 M/uL (4.2-5.4); White Blood Count 6.35 K/uL (4.8-10.8)
[2021-04-15 07:03] LABS: BUN Creatinine Ratio 31.9 (10-20); Calcium 8.9 mg/dl (8.5-10.1); Est GFR (African American) 114.3 ml/min; Est GFR (Non-African American) 98.7 ml/min; Potassium 4.1 mmol/L (3.5-5.1)
[2021-04-15] MEDS: PANTOprazole 40 MG TAB PO SCH ×2 (08:33→20:08)
[2021-04-15] MEDS: CEROVITE ADV FORMULA TAB PO SCH (08:33)
[2021-04-15] MEDS: ATORVASTATIN 40 MG TAB PO SCH (08:33)
[2021-04-15] MEDS: ASPIRIN 81 MG ECTAB PO SCH (08:33)
[2021-04-15] MEDS: CLOPIDOGREL BISULFATE 75 MG TAB PO SCH (08:33)
[2021-04-15] MEDS: NICOTINE 21 MG/24 HR TDSY TD SCH (08:34)
[2021-04-15] MEDS: COLLAGENASE OINT 30 GM TUBE TOP SCH (08:34)
[2021-04-15] MEDS: lisinopril 20 MG TAB PO SCH ×2 (09:15→10:55)
[2021-04-15] MEDS: carvediloL 25 MG TAB PO SCH ×2 (09:15→20:06)
--- NOTE | 2021-04-15 10:47 | Hospitalist Progress Note ---
Date of Service April 15, 2021 Assessment & Plan (1) Hypertensive urgency: Amazingly the patient had NO end-organ symptoms when her systolic BPs were over 250 while awaiting her CEA. After transfer to ICU her systolics improved to the 170-190 range. I suspect that significant anxiety along with not having her usual medications early this am contributed to her HTN urgency. Shortly after seeing her I ordered 12.5mg of coreg x 1. With this her BP dropped significantly necessitating institution of IV fluid as precautionary measure. I am uncertain why her BP responded this way -- perhaps 2nd to volume depletion due to NPO status? Thus the IV fluids. Will continue with her coreg and lisinopril at home doses and adjust accordingly. On 04/14 Patient is now in PCU. Patient though had an episode of pauses. A 3 second pause and a 4 second pause. Will consult cardiology. Patient though has been asymptomatic since. Will not increase coreg to 25 mg. On 04/15 Patient remains in PCU. Will contiue same BP meds. Will consider decreasing coreg to 12.5 mg PO BID. (2) Carotid artery disease: right, >90%. left, ~60%. Was to have CEA today with Dr Ceja but surgery canceled due to the HTN urgency. To be rescheduled in the future. Cont statin, asa, plavix. (3) PAD (peripheral artery disease): carotid disease, renal artery stenosis, PAD of LEs, etc. cont asa, plavix, statin. (4) Alcohol use: daily consumption of beer, 3-4. during the previous hospital stay she had no etoh withdrawal. [id number] watch carefully for withdrawal symptoms. 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 can be followed by Dr Baker. (6) COPD with emphysema: wheezing on exam, but this is baseline, and she endorses no pulmonary symptoms today or dyspnea. cont albuterol prn. (7) Right foot ulcer: x 2. cont santyl's daily with dressing changes. (8) Tobacco abuse: provide nicoderm patch 21mg/day. (9) History of duodenal ulcer: with perforation requiring surgery 12/2020 cont PPI bid (higher dose due to dual-antiplatelet therapy) (10) DVT prophylaxis: if patient stays beyond tomorrow would add chemical DVT proph (11) Left renal mass: Will obtain an MRI of kidneys. As this she has had a CT scan of kidney. Admission and Anticipated Discharge Date Admission Date: April 13, 2021 Subjective Patient reports feeling well except for a mild headache. It was more severe this AM. It was frontal and on the left. She denies any blurry vision, nausea, and vomiting. Review of Systems Review of Systems: All systems reviewed & are unremarkable except as noted in HPI & below Physical Exam Physical Exam: Constitutional: + thin; no acute distress and no altered mental status looks the same as during the previous hospitalization Eyes: PERRL (2mm b/l ) ENMT: external ear and nose normal, oropharynx normal Mouth: + poor dentition Neck: trachea midline, no thyromegaly bruit - right neck Respiratory: no respiratory distress Auscultation: + wheezes (diffuse b/l ); no crackles Cardiovascular: Rate/Rhythm: regular rate and regular rhythm Heart Sounds: normal S1 and normal S2; no murmur Vessels: posterior tibial pulses present and dorsalis pedis pulses present; no JVD Extremities: + edema (trace right foot) Gastrointestinal (Abdomen): normal bowel sounds, soft, nontender, no hepatosplenomegaly Musculoskeletal: Extremities: + clubbing Skin: ulceration x 2 on dorsum of right foot; larger ulcer is near the first toe; mild exudate, no drainage. smaller ulcer near 5th toe, no drainage. neither with erythema. Neurologic: deep tendon reflexes 2+ bilaterally and moves all extremities Psychiatric: A+Ox3, euthymic affect Lymphatic: no cervical lymphadenopathy Results & Data Results & Data ([facility]) Vital Signs (Past 12 Hours) Vital Signs Temp Pulse Resp BP BP Pulse Ox 04/15/21 08:41 120/64 04/15/21 08:04 36.8 C 82 20 96/63 L 94 04/15/21 04:11 36.8 C 77 16 118/62 93 04/14/21 23:40 71 18 137/63 91 PG Care Time/CCT Total # of Minutes Spent Total Time Spent with Patient: Total time spent is greater than 50% in coordination of care (as documented) at patient's floor/unit and/or counseling patient: Coding Level of Care Code 37914 Subseq Hosp Care Lvl 3 Diagnoses Hypertensive urgency I16.0 Carotid artery disease I65.23 Carotid artery disease type: stenosis Laterality: bilateral PAD (peripheral artery disease) I73.9 Alcohol use Z72.89 AAA (abdominal aortic aneurysm) I71.4 Presence of rupture: without rupture COPD with emphysema J43.9 Emphysema type: unspecified Right foot ulcer L97.519 Non-pressure ulcer stage: unspecified non-pressure ulcer stage Tobacco abuse Z72.0 History of duodenal ulcer Z87.19 DVT prophylaxis Z29.9 Left renal mass N28.89 Time Spent (min) 35 (1) AAA (abdominal aortic aneurysm) Presence of rupture: without rupture Qualified Code(s): I71.4 - Abdominal aortic aneurysm, without rupture (2) COPD with emphysema Emphysema type: unspecified Qualified Code(s): J43.9 - Emphysema, unspecified (3) Carotid artery disease Carotid artery disease type: stenosis Laterality: bilateral Qualified Code(s): I65.23 - Occlusion and stenosis of bilateral carotid arteries (4) Right foot ulcer Non-pressure ulcer stage: unspecified non-pressure ulcer stage Qualified Code(s): L97.519 - Non-pressure chronic ulcer of other part of right foot with unspecified severity
--- NOTE | 2021-04-15 11:58 | Nephrology Progress Note ---
Date of Service April 15, 2021 Assessment & Plan (1) Hypertensive urgency: 65 years old female with extensive peripheral vascular disease with history of more than 30 years smoking including carotid artery stenosis, abdominal aortic aneurysm, right renal artery stenosis and extensive calcific ations and stenosis of iliac arteries. Admitted for elective CEA which was canceled because of hypertensive urgency. Blood pressure seems to have started to improve although remained widely variable, over last few hours systolic blood pressure staying 130 to 150. --continue lisinopril 20 mg p.o. daily, increase to 40 mg as needed. --okay to decrease carvedilol to 12.5 twice a day --eventually spironolactone can be added if BP remain poorly controlled --recommend getting dedicated renal MRI to evaluate for red left renal solid mass seen on CT abdomen pelvis on 01/12/2021 will follow (2) Renal artery stenosis: (3) Left renal mass: (4) PAD (peripheral artery disease): Admission and Anticipated Discharge Date Admission Date: April 13, 2021 Subjective Yoselin continues to have off and on feeling of dizziness even while she was lying in bed. Blood pressure remained widely variable, dropped to 90s this morning then again improved and stabilized. Renal function electrolyte remained stable. In sinus rhythm without pauses, heart rate around 80s. Review of Systems Review of Systems: All systems reviewed & are unremarkable except as noted in Subjective Physical Exam Constitutional: no acute distress Respiratory: Auscultation: + crackles and + wheezes Cardiovascular: RRR, no murmur, no edema Neurologic: moves all extremities and awake; no focal motor deficits and not confused Psychiatric: A+Ox3, euthymic affect Results & Data ([facility]) Vital Signs (Past 12 Hours) Vital Signs Temp Pulse Pulse Resp BP BP Pulse Ox 04/15/21 11:48 36.9 C 78 19 154/72 H 95 04/15/21 08:41 120/64 04/15/21 08:04 36.8 C 82 20 96/63 L 94 04/15/21 08:00 84 04/15/21 04:11 36.8 C 77 16 118/62 93 PG Care Time/CCT Total # of Minutes Spent Total Time Spent with Patient: Total time spent is greater than 50% in coordination of care (as documented) at patient's floor/unit and/or counseling patient: Coding Level of Care Code 45223 Subseq Hosp Care Lvl 3 Diagnoses Hypertensive urgency I16.0 Renal artery stenosis I70.1 Left renal mass N28.89 PAD (peripheral artery disease) I73.9
[2021-04-15] MEDS: HEPARIN SOD 5,000 UNIT/0.5 ML VIAL SQ SCH ×2 (15:37→20:08)
[2021-04-15] MEDS ORDERED: GADOBUTROL 65ML VIAL IV ONE (22:06)
--- NOTE | 2021-04-15 22:50 | Magnetic Resonance Report ---
MR abdomen wo/w con HISTORY: Abnormal abdomen and pelvis CT. Possible left renal mass. Follow-up. TECHNIQUE: Multiplanar multisequence MRI of the abdomen was performed both before and after the intra venous administration of 4.5 cc of Gadavist contrast. COMPARISON STUDY: Abdomen and pelvis CT 01/22/2021. FINDINGS: Mild dependent changes seen within the right lung base. The left lung base is clear. Normal gallbladder. The common bile duct is at the upper limits of normal measuring 6 mm in diameter. The m ain pancreatic duct is normal in course and caliber. The pancreas and adrenal glands unremarkable. Tr lisandra loculated fluid posterior to the right hepatic lobe which measures 2.9 x 0.7 cm. This is both T1 and T2 hyperintense and could represent a small amount of proteinaceous fluid or a small focus of loc ulated hemorrhage. No retroperitoneal lymphadenopathy. Normal caliber abdominal aorta. The thrombosed saccular aneurysm at the abdominal aorta is better appreciated on the prior CT examination. Interval midline incision within the abdominal wall. Normal spleen. No hydronephrosis. No suspicious osseous lesions identified. The visualized loops of bowel show no wall thickening or obstruction. Redemonstra tion of the 1.6 x 1.0 cm partially exophytic focus within the lateral aspect of the left kidney. This is both T2 and T1 hypointense. This may demonstrate minimal internal enhancement on the arterial pha se only. No definite enhancement on the additional postcontrast sequences. IMPRESSION: 1. Redemonstration of the 1.6 x 1.0 cm or slightly exophytic focus within the lateral aspect of the l eft kidney. This is both T2 and T1 hypointense. There may be minimal internal enhancement on the wily rial phase only. This is indeterminate but could represent a small renal mass. Urology consultation w ith [address] follow-up recommended for further evaluation.. 2. A 2.9 x 0.7 cm small loculated fluid collection posterior to the right hepatic lobe. This is nonsp ecific but could be due to the recent postoperative change. Scattered represent a small seroma or sma ll loculated focus of hemorrhage. ACT 112: Negative or not required by law. Electronically signed by: Jorge A Olivia M.D. 04/15/2021 10:48 PM
[2021-04-16] MEDS: ACETAMINOPHEN 325 MG TAB PO PRN (02:27)
[2021-04-16] MEDS: HEPARIN SOD 5,000 UNIT/0.5 ML VIAL SQ SCH (05:33)
[2021-04-16] MEDS: CLOPIDOGREL BISULFATE 75 MG TAB PO SCH (08:32)
[2021-04-16] MEDS: PANTOprazole 40 MG TAB PO SCH (08:32)
[2021-04-16] MEDS: lisinopril 20 MG TAB PO SCH (08:32)
[2021-04-16] MEDS: ATORVASTATIN 40 MG TAB PO SCH (08:32)
[2021-04-16] MEDS: ASPIRIN 81 MG ECTAB PO SCH (08:32)
[2021-04-16] MEDS: CEROVITE ADV FORMULA TAB PO SCH (08:33)
[2021-04-16] MEDS: NICOTINE 21 MG/24 HR TDSY TD SCH (08:33)
[2021-04-16] MEDS ORDERED: carvediloL 12.5 MG TAB PO SCH (09:00)
--- NOTE | 2021-04-16 12:18 | Nephrology Progress Note ---
Date of Service April 16, 2021 Assessment & Plan (1) Hypertensive urgency: BP improved. No symptoms at this time. No additional evaluation needed. Will continue to monitor. Close outpatient follow up post discharge. Tolerating current therapy well. (2) Renal artery stenosis: Kidney function has been stable. BP acceptable at this time. No intervention needed. Followup with Dr. Morris in the nephrology clinic within 2 weeks of discharge. (3) Left renal mass: MRI reviewed with patient. Will require outpatient follow up. Suggest urology follow up post discharge. (4) PAD (peripheral artery disease): Vascular surgery following regarding rescheduling intervention. Admission and Anticipated Discharge Date Admission Date: April 13, 2021 Subjective No acute events overnight. No complaints this AM. Review of Systems Review of Systems: All systems reviewed & are unremarkable except as noted in HPI & below Physical Exam Constitutional: well developed; no acute distress Eyes: no scleral abnormality and no corneal abnormality ENMT: Mouth: no oral mucosal abnormality and oral mucous membranes not dry Neck: normal visual inspection and trachea midline Respiratory: normal respiratory effort Auscultation: lungs clear to auscultation bilaterally Cardiovascular: Rate/Rhythm: regular rate Heart Sounds: normal S1 and normal S2 Extremities: no edema Musculoskeletal: Extremities: no cyanosis and no clubbing Skin: normal turgor; no lesions Neurologic: Motor/Sensory: no tremor and no asterixis Psychiatric: Orientation: alert and oriented x 3 Results & Data ([facility]) Vital Signs (Past 12 Hours) Vital Signs Temp Pulse Resp BP Pulse Ox 04/16/21 08:30 36.8 C 72 18 133/85 95 04/16/21 03:53 36.9 C 67 18 129/57 L 93 Diagnostic Findings Abnormal Labs 04/13/21 04/15/21 04/15/21 11:22 06:35 06:35 RBC 3.69 L MCV 103.0 H MCH 34.7 H RDW Std Deviation 56.3 H RDW Coeff of Odette 14.9 H Sodium 135 L Creatinine 0.57 L BUN/Creatinine Ratio 21.2 H 31.9 H Glucose 107 H MRI results reviewed with patient today. PG Care Time/CCT Total # of Minutes Spent Total Time Spent with Patient: Total time spent is greater than 50% in coordination of care (as documented) at patient's floor/unit and/or counseling patient: Coding Level of Care Code 88628 Subseq Hosp Care Lvl 3 Diagnoses Hypertensive urgency I16.0 Renal artery stenosis I70.1 Left renal mass N28.89 PAD (peripheral artery disease) I73.9
--- NOTE | 2021-04-19 14:57 | Discharge Summary ---
Date of Service April 16, 2021 Admission HPI Per Admitting Provider March 31, 2021 Assessment & Plan (1) Carotid artery stenosis: Due to the severe stenosis present would recommend an elective CEA of the right carotid artery. I have discussed the risks options and benefits of the procedure with the patient. The patient understands the risks options and benefits and agrees to the procedure. She may be d/c'd from our standpoint on ASA and plavix. We will contact her to schedule her carotid endart. Thank you very much for letting us participate in the care of this patient. Laterality: right Qualified Code(s): I65.21 - Occlusion and stenosis of right carotid artery (2) Renal artery stenosis: Would follow this conservatively at this point. Would attempt to treat if her pressure is uncontrolled with 4 meds or she is showing signs of renal insufficiency. (3) Peripheral artery disease: this is being treated by Dr. Dias (4) AAA (abdominal aortic aneurysm) without rupture: We will order an ultrasound as an outpatient for follow up of this small saccular infrarenal aortic aneurysm. History of Present Illness Reason for Consultation: Severe right internal carotid artery stenosis Attending Physician: Brayden Meyer History of Present Illness This is 65-year-old female with a history of peripheral vascular occlusive disease with a right lower extremity intervention recently. She also has a history of COPD and hypertension. While at home she developed an episode of dizziness. This did not resolve. When she reached a point of becoming lightheaded and having a feeling of passing out, she went to the emergency room. She was admitted at that time. CT angiogram revealed 90% narrowing of her right internal carotid artery had a 60 to 70% narrowing of her left internal carotid artery. Allergies Allergy/AdvReac Type Severity Reaction Status Date / Time No Known Allergies Allergy Mild Verified 02/14/21 13:32 Home Medications Medication Instructions Recorded Confirmed Type atorvastatin 40 mg PO DAILY 30 Days #30 tab 02/01/21 03/30/21 Rx carvedilol 12.5 mg PO BID #30 tab 02/01/21 03/30/21 Rx pantoprazole [Protonix] 40 mg PO DAILY 28 Days #28 tab 02/01/21 03/30/21 Rx tramadol 50 mg tablet 50 mg PO TID PRN #30 tab 02/08/21 03/30/21 Rx collagenase clostridium histo. 250 1 applic TOPICAL DAILY 30 Days #30 04/28/21 06/02/21 Rx unit/gram topical ointment g lisinopril 10 mg tablet 10 mg PO QAM tab 03/07/21 03/30/21 History clopidogrel 75 mg PO QAM #30 tab 03/24/21 03/30/21 Rx Patient History Medical History COPD (chronic obstructive pulmonary disease) Hypertensive urgency Hypokalemia Peripheral artery disease Surgical History H/O exploratory laparotomy (01/22/21) Exploratory laparotomy, oversew perforated duodenal ulcer, abdominal washout. Dr. 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 Required: No Beliefs That Will Affect Care: None marital status: Current Living Situation: Spouse current occupational status: employed current occupation: [employer] How many Children do You have: 2 Feels Safe at Home: Yes caffeine: Yes Assistive Devices: None Review of Systems Review of Systems: All systems reviewed & are unremarkable except as noted i n HPI & below Physical Exam Constitutional: WD/WN, vitals as above Neck: trachea midline Respiratory: normal respiratory effort; no respiratory distress Auscultation: lungs clear to auscultation bilaterally Cardiovascular: Rate/Rhythm: regular rate and regular rhythm Vessels: + carotid bruit (right) and femoral pulses present; + posterior tibial pulses abnormal and + dorsalis pedis pulses abnormal Gastrointestinal (Abdomen): Inspection/Auscultation: abdomen normal to inspection; abdomen not distended Percussion/Palpation: abdomen soft; abdomen nontender Musculoskeletal: no cyanosis or clubbing, extremities motor strength 5/5 Skin: + ulcer (right foot) Neurologic: CN's II-XI intact bilaterally and moves all extremities Speech / Cognition: no expressive aphasia Motor/Sensory: no sensory deficit Psychiatric: Orientation: alert and oriented x 3 Results & Data ([facility]) Vital Signs (Past 12 Hours) Vital Signs Temp Pulse Pulse Resp BP BP Pulse Ox 03/31/21 11:10 36.7 C 68 18 162/81 H 96 03/31/21 09:00 73 03/31/21 07:17 36.7 C 74 18 199/99 H 95 03/31/21 03:49 193/83 H 03/31/21 03:13 36.5 C 82 18 207/92 H 96 Signed By:<Electronically signed by Cash Baker MD>03/31/21 1502 Created: 03/31/21 1450 The status of this report is Signed.Draft = Not yet reviewed or approved by Medical Physician.Signed = Reviewed and approved by Medical Physician. Principal Diagnosis hypertensive urgency Discharge Exam Constitutional: + thin; no acute distress and no altered mental status looks the same as during the previous hospitalization Eyes: PERRL (2mm b/l ) ENMT: external ear and nose normal, oropharynx normal Mouth: + poor dentition Neck: trachea midline, no thyromegaly bruit - right neck Respiratory: no respiratory distress Auscultation: + wheezes (diffuse b/l ); no crackles Cardiovascular: Rate/Rhythm: regular rate and regular rhythm Heart Sounds: normal S1 and normal S2; no murmur Vessels: posterior tibial pulses present and dorsalis pedis pulses present; no JVD Extremities: + edema (trace right foot) Gastrointestinal (Abdomen): normal bowel sounds, soft, nontender, no hepatosplenomegaly Musculoskeletal: Extremities: + clubbing Skin: ulceration x 2 on dorsum of right foot; larger ulcer is near the first toe; mild exudate, no drainage. smaller ulcer near 5th toe, no drainage. neither with erythema. Neurologic: deep tendon reflexes 2+ bilaterally and moves all extremities Psychiatric: A+Ox3, euthymic affect Lymphatic: no cervical lymphadenopathy Discharge Data Allergies Allergy/AdvReac Type Severity Reaction Status Date / Time No Known Allergies Allergy Mild Verified 04/13/21 11:14 Consultations 04/13/21 11:40 Consult Editor Routine 04/14/21 08:05 Consult Cardiology Routine 04/14/21 10:27 Consult Nephrology Routine Procedures Performed Operation Date: 04/13/21 12:30 Actual Procedures p Right Carotid Endarterectomy - Case Aborted, Patient Hypertensive - Cash Baker MD Ordered Studies 04/15/21 13:12 MR abdomen wo/w con Routine Hospital Course (1) Hypertensive urgency: On 6/16: Amazingly the patient had NO end-organ symptoms when her systolic BPs were over 250 while awaiting her CEA. After transfer to ICU her systolics improved to the 170-190 range. I suspect that significant anxiety along with not having her usual medications early this am contributed to her HTN urgency. Shortly after seeing her I ordered 12.5mg of coreg x 1. With this her BP dropped significantly necessitating institution of IV fluid as precautionary measure. I am uncertain why her BP responded this way -- perhaps 2nd to volume depletion due to NPO status? Thus the IV fluids. Will continue with her coreg and lisinopril at home doses and adjust accordingly. On 04/14 Patient is now in PCU. Patient though had an episode of pauses. A 3 second pause and a 4 second pause. Will consult cardiology. Patient though has been asymptomatic since. Will not increase coreg to 25 mg. On 04/15 Patient remains in PCU. Will contiue same BP meds. Will consider decreasing coreg to 12.5 mg PO BID. On 04/16 BP is at goal. will continue coreg12.5 mg pO BID and continue lisnopril 20mg PO daily will followup with Dr. Alexandra Souza in the outpatient setting. In regards to your MRI of your kidney: will suggest followp with Urology to discuss findings. (2) Carotid artery disease: right, >90%. left, ~60%. Was to have CEA today with Dr Ceja but surgery canceled due to the HTN urgency. To be rescheduled in the future. Cont statin, asa, plavix. (3) PAD (peripheral artery disease): carotid disease, renal artery stenosis, PAD of LEs, etc. cont asa, plavix, statin. (4) Alcohol use: daily consumption of beer, 3-4. during the previous hospital stay she had no etoh withdrawal. [id number] watch carefully for withdrawal symptoms. 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 can be followed by Dr Baker. (6) COPD with emphysema: wheezing on exam, but this is baseline, and she endorses no pulmonary symptoms today or dyspnea. cont albuterol prn. (7) Right foot ulcer: x 2. cont santyl's daily with dressing changes. (8) Tobacco abuse: provide nicoderm patch 21mg/day. (9) History of duodenal ulcer: with perforation requiring surgery 12/2020 cont PPI bid (higher dose due to dual-antiplatelet therapy) (10) DVT prophylaxis: if patient stays beyond tomorrow would add chemical DVT proph (11) Left renal mass: Will obtain an MRI of kidneys. As this she has had a CT scan of kidney in the past which suggested further imagaing required. MRI of the tamela showed the following: MR abdomen wo/w con HISTORY: Abnormal abdomen and pelvis CT. Possible left renal mass. Follow-up. TECHNIQUE: Multiplanar multisequence MRI of the abdomen was performed both before and after the intravenous administration of 4.5 cc of Gadavist contrast. COMPARISON STUDY: Abdomen and pelvis CT 01/22/2021. FINDINGS: Mild dependent changes seen within the right lung base. The left lung base is clear. Normal gallbladder. The common bile duct is at the upper limits of normal measuring 6 mm in diameter. The main pancreatic duct is normal in course and caliber. The pancreas and adrenal glands unremarkable. Trace loculated fluid posterior to the right hepatic lobe which measures 2.9 x 0.7 cm. This is both T1 and T2 hyperintense and could represent a small amount of proteinaceous fluid or a small focus of loculated hemorrhage. No retroperitoneal lymphadenopathy. Normal caliber abdominal aorta. The thrombosed saccular aneurysm at the abdominal aorta is better appreciated on the prior CT examination. Interval midline incision within the abdominal wall. Normal spleen. No hydronephrosis. No suspicious osseous lesions identified. The visualized lo ops of bowel show no wall thickening or obstruction. Redemonstration of the 1.6 x 1.0 cm partially exophytic focus within the lateral aspect of the left kidney. This is both T2 and T1 hypointense. This may demonstrate minimal internal enhancement on the arterial phase only. No definite enhancement on the additional postcontrast sequences. IMPRESSION: 1. Redemonstration of the 1.6 x 1.0 cm or slightly exophytic focus within the lateral aspect of the left kidney. This is both T2 and T1 hypointense. There may be minimal internal enhancement on the arterial phase only. This is indeterminate but could represent a small renal mass. Urology consultation with [address] follow-up recommended for further evaluation.. 2. A 2.9 x 0.7 cm small loculated fluid collection posterior to the right hepatic lobe. This is nonspecific but could be due to the recent postoperative change. Scattered represent a small seroma or small loculated focus of hemorrhage. Total Time Total Time Spent Total Time Spent (In Minutes): 32 Total Time Includes: Examination of the Patient, Discharge Planning and Medication Reconciliation Discharge Plan Discharge Items Patient Disposition: Home - Self-Care Reason For Visit: Right Carotid Artery Stenosis Discharge Diagnosis: RIGHT CAROTID STENOSIS Activity: Resume your previous activity Non-emergency contact: Primary Care Provider Call non-emergency contact if: you have any medication questions Follow-up/Referrals: Go Landeros CRNP [Primary Care Provider] - 04/20/21 8:20 am Libby Morris MD [Physician] - 05/06/21 (within 2 weeks) Diet: Heart Healthy Addtl Attending Provider Instructions: You came in with Hypertensive urgency: Your blood pressure improved. No symptoms at this time. No additional evaluation needed. Will continue to monitor. Close outpatient follow up post discharge. Tolerating current therapy well. (Followup with Dr. Morris in the nephrology clinic within 2 weeks of discharge. In regards to your Left renal mass: Will require outpatient follow up. Suggest urology follow up post discharge. Vascular surgery following regarding rescheduling intervention. Pending Studies at Discharge: No Stand-Alone Forms: [employer], Smoking Cessation Medications and DC Order Prescriptions: New carvedilol 12.5 mg Tablet 12.5 mg PO BID Qty: 60 RF: 0 lisinopril 20 mg Tablet 20 mg PO QAM Qty: 30 RF: 0 Continued pantoprazole [Protonix] 40 mg tablet,delayed release (DR/EC) 40 mg PO BID Qty: 60 RF: 2 aspirin 81 mg Tablet,Delayed Release (Dr/Ec) 81 mg PO QAM Qty: 90 RF: 1 clopidogrel 75 mg Tablet 75 mg PO QAM Qty: 30 RF: 3 acetaminophen [Tylenol] 325 mg Tablet 325 mg PO QID PRN (Reason: Pain) RF: 0 [id number] Tablet 1 tab PO DAILY RF: 0 Santyl 250 unit/gram ointment 1 applic topical QAM RF: 0 atorvastatin 40 mg tablet 40 mg PO DAILY 30 Days Qty: 30 RF: 2 Discontinued lisinopril 10 mg tablet 10 mg PO QAM Qty: 90 RF: 3 carvedilol 12.5 mg tablet 25 mg PO BID RF: 0 Discharge Orders: Discharge Order (Routine); Ordered 04/16/21 Ordered By: Tl Gibson Admission Data Admit Date/Time: 04/13/21 11:39 Attending Provider: Tl Gibson Admit Provider: Cash Baker Primary Care Provider: Go Landeros Other Providers: Demario Guillen ; Andrew Ceballos ; Libby Morris Other Interventions: Discharge Summary Assessment (RN) Last Done: 04/16/21 14:39 Coding Level of Care Code D/C Day Management >30 mins Diagnoses Hypertensive urgency I16.0 Carotid artery disease I65.23 Carotid artery disease type: stenosis Laterality: bilateral PAD (peripheral artery disease) I73.9 Alcohol use Z72.89 AAA (abdominal aortic aneurysm) I71.4 Presence of rupture: without rupture COPD with emphysema J43.9 Emphysema type: unspecified Right foot ulcer L97.519 Non-pressure ulcer stage: unspecified non-pressure ulcer stage Tobacco abuse Z72.0 History of duodenal ulcer Z87.19 DVT prophylaxis Z29.9 Left renal mass N28.89
--- NOTE | 2021-04-21 17:04 | Anesthesiology Progress Note ---
Date of Service April 21, 2021 Anesthesia Post Procedure Pain Intensity Right Foot: Pain Intensity: 2 Transfer of Care Handoff Completed per policy Notes Mental Status: alert / awake / arousable and participated in evaluation Patient Amnestic to Procedure: No Nausea / Vomiting: adequately controlled Pain: adequately controlled Airway Patency, RR, SpO2: stable & adequate BP & HR: see Notes below (Patient has suprasystemic HTN;case cancelled; Pt. placed in ICU) Hydration State: stable & adequate Anesthetic Complications: no major complications apparent
== END 2021-04-16 15:44 | disposition home or self-care (01) | DRG 27 ==
LOC: ASU 10:52 → SUATTDRO 11:39 → 1E 11:39 → 2E 17:14

== ENCOUNTER 2021-05-02 06:16 | Inpatient (IN) ==
--- NOTE | 2021-04-28 10:26 | Anesthesiology Consultation ---
Date of Service April 28, 2021 Patient to be evaluated day of surgery by anesthesiologist. Assessment & Plan (1) Encounter for pre-operative examination: Chart Review Chart Review: Acceptable Risk for Surgery (pending preop Covid testing results and anesthesia evaluation DOS ) and Patient NOT seen in Pre Admission Testing Pt initially scheduled for procedure 04/13/21- had severe HTN preoperatively- as high as 310 systolically- case was cancelled and patient was admitted for BP controlled At least 3-4 beers daily per nursing assessment Per nursing assessment 04/28/2021, patient resides in [facility]. Works in [employer]. 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 No known Covid positive contacts or Covid related symptoms. No known Covid infection in the past 90 days. Preop Covid test scheduled 04/29/21 at [facility]= will await results. Pending preop Covid test is negative- will order Cepheid test for DOS secondary to pt not being vaccinated, not masking and working in public. Seen by PCP 04/25/2021 = seen for hospital follow-up. Carotid artery stenosisn ot at [facility] canceled due to hypertensive urgencywill likely undergo CEA in the coming week. Alcohol abusedrinking 23 drinks per day. Not interested in alcohol cessation at this time. COPDnot at goaldeclines Combivent and PFTs. Will attempt to reschedule low-dose CT scan again in the future. Hypertensionelevatedwe will increase lisinopril to 40 mg daily. Nephrology may add spironolactone. Continue Jackpot Anika. Patient will follow with nephrology postoperatively from CEA regarding renal artery stenosis. PAD/AAAnot at goal. Duodenal ulcer with perforationstablehad surgical repair December 2020. Renal massworried for RCC. Ischemic ulcer right footongoingcontinue with wound care. Admitted to [facility] 04/13/21-04/16/21= admitted for hypertensive urgency. No endorgan symptoms. Blood pressure dropped significantly with Coreg. IV fluids instituted as precautionary measure. Possibly BP responded this way due to volume depletion due to n.p.o. status. We will continue Coreg and lisinopril at home and adjust accordingly. Carotid stenosis- plan for reschedule for elective right CEA in near future. PADcarotid disease, renal artery stenosis, PUD of lower extremitiescontinue current medications. Alcohol usedaily consumption of 34 beers daily. AAArecently noted on December 2020 CT scancan be followed by Dr. Baker. COPDcontinue albuterol. Right foot ulcercontinue dressing changes. Left renal massfollow-up with urology. Seen by cardiology while admitted 04/14/2021 = patient seen for episodes of ventricular asystole. Episode of ventricular asystole up to 4 seconds. Actually had 3 episodes which occurred several minutes apart earlier this morning. Evidence of sinus node slowing leading up to these episodes. Patient asymptomatic. May have been sleeping at time of episodes. Episodes are taken in the context of recent admission for dizziness and presyncopemonitor throughout the admissionpersistent symptoms without evidence of rhythm disturbance. Alcohol abuse and hypertension as well as a diagnosis of severe carotid stenosis was thought to play a role in her symptoms. Has narrow complex QRS. Believe episodes would likely be vagally mediated. Had received several additional doses of beta-blockers yesterday in attempt to control blood pressureif she is ambulatory with normal heart rates no additional intervention or monitoring is currently required. History Surgery Operation Date: 05/02/21 07:15 Proposed Procedures p Right Carotid Endarterectomy - Cash Baker MD Height/Weight Height: 5 ft 2 in Weight: 45.359 kg Allergies Allergy/AdvReac Type Severity Reaction Status Date / Time No Known Allergies Allergy Mild Verified 04/28/21 08:58 Medications Home Medications Medication Instructions Recorded Confirmed Last Taken aspirin 81 mg PO QAM #90 tab 04/01/21 04/28/21 04/12/21 07:30 clopidogrel 75 mg PO QAM #30 tab 04/01/21 04/28/21 04/13/21 08:00 Santyl 1 applic TOPICAL QAM 04/08/21 04/28/21 04/12/21 19:00 [id number] 1 tab PO QAM 04/08/21 04/28/21 04/13/21 08:00 pantoprazole 40 mg tablet,delayed 40 mg PO BID #60 tab 04/11/21 04/28/21 Unknown release carvedilol 12.5 mg PO BID #60 tab 04/16/21 04/28/21 Unknown lisinopril 40 mg tablet 40 mg PO QAM #90 tab 04/25/21 04/28/21 Unknown acetaminophen [Tylenol Extra 500 - 1,000 mg PO Q6H PRN 04/28/21 04/28/21 Unknown Strength] atorvastatin 40 mg PO QAM 04/28/21 04/28/21 Unknown Past Medical History Medical History (Updated 04/28/21 @ 10:48 by Yasmin Rutherford PA-C) AAA (abdominal aortic aneurysm) 16mm x 7mm sacular aneurysm of infrarenal abdominal aorta per 01/22/21 CT scan Alcohol use 3-4 beers daily per nursing assessment Alcohol abuse per records Carotid artery disease COPD with emphysema Per records Dizziness Recently admitted 03/30/21-04/01/21 Possibly related to HTN GERD (gastroesophageal reflux disease) UNDER CONTROL Hypertension Ischemic ulcer of right foot Follows with Wound Clinic Left renal mass Left side- per 04/15/21 MRI= 1.6 x 1.0 cm or slightly exophytic focus within the lateral aspect of the left kidney.- worrisome for RCC per records- pt will follow up as outpatient PAD (peripheral artery disease) S/p stent to right LE February 2021 with [facility] Bilateral iliac artery stenosis Renal artery stenosis Per CT scan 12/[address] Baker Past Family History Family History Mother Diabetes Lung cancer Hypertension Father Lung cancer PAD (peripheral artery disease) Denies family history of Ovarian cancer Prostate cancer Myocardial infarction Breast cancer Colorectal cancer Past Surgical History Surgical History H/O exploratory laparotomy (01/22/21) Exploratory laparotomy, oversew perforated duodenal ulcer, abdominal washout. Dr. Craig 01/22/2021 H/O tubal ligation H/O vascular surgery 2 stents to right leg [facility] February 2021 History of colonoscopy [place] teeth extracted Social History Smoking Status: Current every day smoker tobacco type: cigarettes Smoking cigarettes per day: 1 PPD Do You Dip or Chew Tobacco: No Hx Alcohol Use: Yes Alcohol type: beer alcohol intake frequency: 3 or more drinks per day Alcohol Intake Frequency Comment: 3 BEER A DAY Hx Substance Use: No substance use type: does not use Lab Results Anesthesia Preop Results Results Anesthesia Widget: WBC 6.35 K/uL (4.8-10.8) 04/15/21 Hgb 12.8 g/dL (12.0-16.0) 04/15/21 Hct 38.0 % (37-47) 04/15/21 Plt 235 K/uL (130-400) 04/15/21 Na 135 mmol/L (136-145) L 04/15/21 K 4.1 mmol/L (3.5-5.1) 04/15/21 Cl 103 mmol/L (98-107) 04/15/21 CO2 26 mmol/L (21-32) 04/15/21 BUN 18 mg/dl (7-18) 04/15/21 Creat 0.57 mg/dl (0.6-1.2) L 04/15/21 Glucose Level 99 mg/dl (70-99) 04/15/21 PT 9.7 Seconds (9.0-12.0) 03/30/21 PTT 26.9 Seconds (21.0-31.0) 03/22/21 INR 1.0 (0.9-1.1) 03/30/21 Urine Color Yellow 03/30/21 Urine Appearance Clear (Clear) 03/30/21 Urine pH 6.0 (4.5-7.5) 03/30/21 Urine Specific [place] 1.008 (1.000-1.030) 03/30/21 Urine Protein Negative (Negative) 03/30/21 Urine Glucose (UA) Negative (Negative) 03/30/21 Urine Ketones Negative (Negative) 03/30/21 Urine Blood Negative (Negative) 03/30/21 Urine Nitrite Negative (Negative) 03/30/21 Urine Bilirubin Negative (Negative) 03/30/21 Urine Urobilinogen Negative (Negative) 03/30/21 Urine Leukocyte Esterase Negative (Negative) 03/30/21 Blood Type O Negative 04/13/21 Antibody Screen NEGATIVE 04/13/21 Testing Laboratory Results 03/30/2021 = AST: 14 ALT: 18 ALK PHOS: 86 Electrocardiogram Date: 03/30/21 Findings: + NSR @ (80 bpm) Normal EKG per cardio Chest X-Ray Date: 03/30/21 Findings: + NAD and + cardiomegaly (Mild) There is pulmonary emphysema. There is no overt failure. There is no focal pulmonary consolidation. There are no significant pleural effusions Echocardiogram Date: 03/24/21 EF: >70% RWMA: + none Other Findings: + LVH (Moderate/concentric) Valvular Disease: + no significant valvular disease LV cavity is small. Compared with prior study on 01/24/2021no significant changes. Other Testing Brain MRI 03/30/2021 = no acute intracranial findings. Matter T2 hyperintense foci suggestive of mild small vessel disease. Neck CTA 03/30/2021 = focal high-grade stenosis of proximal right internal carotid artery with near complete occlusion (greater than 90% luminal narrowing). A pproximately 60% focal stenosis of the proximal left internal carotid artery. High-grade stenosis at the origin of the right external carotid artery. Head CTA 03/30/2021 = no evidence of hemorrhage, mass-effect or acute territorial ischemia by CT criteria along the angiographic phase technique. Unremarkable CTA of the brain.
[~2021-05-02 06:16] MED LIST changes: +CEFAZOLIN 1,000 MG/7.5 ML SYR IV SCH; -LR 15ML/HR IV SCH; +SODIUM CHLORIDE 0.9% 1000ML 1,000 ML IV SCH; -SODIUM CHLORIDE 0.9% 1000ML IV SCH
[2021-05-02 07:15] LABS: Calcium 9.5 mg/dl (8.5-10.1); Creatinine Clr Calc Pharmacy 66.5 ml/min; Est GFR (African American) 111.2 ml/min; Potassium 3.8 mmol/L (3.5-5.1)
--- NOTE | 2021-05-02 07:33 | History & Physical Report ---
Date of Service May 02, 2021 History of Present Illness Primary Care Provider: LAKSHMI Garza April 13, 2021 History of Present Illness Primary Care Provider: LAKSHMI Garza March 31, 2021 Assessment & Plan (1) Carotid artery stenosis: Due to the severe stenosis present would recommend an elective CEA of the right carotid artery. I have discussed the risks options and benefits of the procedure with the patient. The patient understands the risks options and benefits and agrees to the procedure. She may be d/c'd from our standpoint on ASA and plavix. We will contact her to schedule her carotid endart. Thank you very much for letting us participate in the care of this patient. Laterality: right Qualified Code(s): I65.21 - Occlusion and stenosis of right carotid artery (2) Renal artery stenosis: Would follow this conservatively at this point. Would attempt to treat if her pressure is uncontrolled with 4 meds or she is showing signs of renal insufficiency. (3) Peripheral artery disease: this is being treated by Dr. Dias (4) AAA (abdominal aortic aneurysm) without rupture: We will order an ultrasound as an outpatient for follow up of this small saccular infrarenal aortic aneurysm. History of Present Illness Reason for Consultation: Severe right internal carotid artery stenosis Attending Physician: Brayden Meyer History of Present Illness This is 65-year-old female with a history of peripheral vascular occlusive disease with a right lower extremity intervention recently. She also has a history of COPD and hypertension. While at home she developed an episode of dizziness. This did not resolve. When she reached a point of becoming lightheaded and having a feeling of passing out, she went to the emergency room. She was admitted at that time. CT angiogram revealed 90% narrowing of her right internal carotid artery had a 60 to 70% narrowing of her left internal carotid artery. Allergies Allergy/AdvReac Type Severity Reaction Status Date / Time No Known Allergies Allergy Mild Verified 02/14/21 13:32 Home Medications Medication Instructions Recorded Confirmed Type atorvastatin 40 mg PO DAILY 30 Days #30 tab 02/01/21 03/30/21 Rx carvedilol 12.5 mg PO BID #30 tab 02/01/21 03/30/21 Rx pantoprazole [Protonix] 40 mg PO DAILY 28 Days #28 tab 02/01/21 03/30/21 Rx tramadol 50 mg tablet 50 mg PO TID PRN #30 tab 02/08/21 03/30/21 Rx collagenase clostridium histo. 250 1 applic TOPICAL DAILY 30 Days #30 02/23/21 03/30/21 Rx unit/gram topical ointment g lisinopril 10 mg tablet 10 mg PO QAM tab 03/07/21 03/30/21 History clopidogrel 75 mg PO QAM #30 tab 03/24/21 03/30/21 Rx Patient History Medical History COPD (chronic obstructive pulmonary disease) Hypertensive urgency Hypokalemia Peripheral artery disease Surgical History H/O exploratory laparotomy (01/22/21) Exploratory laparotomy, oversew perforated duodenal ulcer, abdominal washout. Dr. Craig 01/22/2021 H/O tubal ligation Social History Smoking Status: Current every day smoker Tobacco Type: Cigarettes Age Started Using Tobacco: 27; Cigarettes Per Day: 20; Hx Alcohol Use: Yes Alcohol type: beer Hx Substance Use: No Preferred Language: Mozambican Communication Ability: Effective Galley Cook Required: No Beliefs That Will Affect Care: None marital status: Current Living Situation: Spouse current occupational status: employed current occupation: [employer] How many Children do You have: 2 Feels Safe at Home: Yes caffeine: Yes Assistive Devices: None Review of Systems Review of Systems: All systems reviewed & are unremarkable except as noted in HPI & below Physical Exam Constitutional: WD/WN, vitals as above Neck: trachea midline Respiratory: normal respiratory effort; no respiratory distress Auscultation: lungs clear to auscultation bilaterally Cardiovascular: Rate/Rhythm: regular rate and regular rhythm Vessels: + carotid bruit (right) and femoral pulses present; + posterior tibial pulses abnormal and + dorsalis pedis pulses abnormal Gastrointestinal (Abdomen): Inspection/Auscultation: abdomen normal to inspection; abdomen not distended Percussion/Palpation: abdomen soft; abdomen nontender Musculoskeletal: no cyanosis or clubbing, extremities motor strength 5/5 Skin: + ulcer (right foot) Neurologic: CN's II-XI intact bilaterally and moves all extremities Speech / Cognition: no expressive aphasia Motor/Sensory: no sensory deficit Psychiatric: Orientation: alert and oriented x 3 Results & Data ([facility]) Vital Signs (Past 12 Hours) Vital Signs Temp Pulse Pulse Resp BP BP Pulse Ox 03/31/21 11:10 36.7 C 68 18 162/81 H 96 03/31/21 09:00 73 03/31/21 07:17 36.7 C 74 18 199/99 H 95 03/31/21 03:49 193/83 H 03/31/21 03:13 36.5 C 82 18 207/92 H 96 Signed By:<Electronically signed by Cash Baker MD>03/31/21 1502 Created: 03/31/21 1450 The status of this report is Signed.Draft = Not yet reviewed or approved by Medical Physician.Signed = Reviewed and approved by Medical Physician. Allergies Allergy/AdvReac Type Severity Reaction Status Date / Time No Known Allergies Allergy Mild Verified 04/13/21 11:14 Home Medications Medication Instructions Recorded Confirmed Type atorvastatin 40 mg PO DAILY 30 Days #30 tab 02/01/21 04/13/21 Rx aspirin 81 mg PO QAM #90 tab 04/01/21 04/13/21 Rx clopidogrel 75 mg PO QAM #30 tab 04/01/21 04/13/21 Rx Santyl 1 applic TOPICAL QAM 04/08/21 04/13/21 History acetaminophen [Tylenol] 325 mg PO QID PRN 04/08/21 04/13/21 History carvedilol 25 mg PO BID 04/08/21 04/13/21 History ldsosodzwmrs-nufqlbgy-xkwqkq 1 tab PO DAILY 04/08/21 04/13/21 History [Centrum Silver] lisinopril 10 mg tablet 10 mg PO QAM #90 tab 04/11/21 04/13/21 Rx pantoprazole 40 mg tablet,delayed 40 mg PO BID #60 tab 04/11/21 04/13/21 Rx release Past Med/Surg History Medical History AAA (abdominal aortic aneurysm) 16mm x 7mm sacular aneurysm of infrarenal abdominal aorta per 01/22/21 CT scan Alcohol use 3-4 beers daily per nursing assessment Alcohol abuse per records Carotid artery disease COPD with emphysema Per records Dizziness Recently admitted 03/30/21-04/01/21 Possibly related to HTN Hypertension Ischemic ulcer of right foot Follows with Wound [facility] Left renal mass CT scan 12/2000- 1.9 x 1.1 cm exophytic heterogeneous mass within the left kidney PAD (peripheral artery disease) S/p stent to right LE February 2021 with [facility] Bilateral iliac artery stenosis Renal artery stenosis Per CT scan 12/[address] Baker Surgical History H/O exploratory laparotomy H/O exploratory laparotomy (01/22/21) Exploratory laparotomy, oversew perforated duodenal ulcer, abdominal washout. Dr. Craig 01/22/2021 H/O tubal ligation H/O vascular surgery 2 stents to right leg [facility] February 2021 History of colonoscopy [place] teeth extracted Family History Mother Diabetes Lung cancer Father Lung cancer Denies family history of Ovarian cancer Prostate cancer Myocardial infarction Breast cancer Colorectal cancer Social History Smoking Status: Current every day smoker Tobacco Type: Cigarettes Age Started Using Tobacco: 27; packs per day: 1; Cigarettes Per Day: 1 ppd; Second Hand Exposure: No; Do You Dip or Chew Tobacco: No; Tobacco Cessation Education Requested by Patient: No Hx Alcohol Use: Yes Alcohol type: beer Alcohol Intake Frequency: 4 or More x per/Week Alcohol Intake Frequency Comment: 2-3 beers daily Hx Substance Use: No Preferred Language: Mozambican Communication Ability: Effective Visual Impairment: Limited Hearing Ability: Normal Galley Cook Required: No Beliefs That Will Affect Care: None marital status: Current Living Situation: Spouse current occupational status: employed current occupation: [employer] How many Children do You have: 2 Other Information That Helps Us Care for You: No Feels Safe at Home: Yes Safety Concerns: Feels Safe At This Time Childhood Exposure to Second-Hand Smoke: Yes caffeine: Yes during the past year weight has: remained stable Dental Care, Regularly: No Physical Activity Frequency: Does not Exercise Physical Activity Frequency Comment: on feet at work all day Seatbelt Use: always Sunscreen Use: No Assistive Devices: Denture - Upper, Denture - Lower and Glasses Results & Data ([facility]) Vital Signs (Past 12 Hours) Vital Signs Temp Pulse BP Pulse Ox 04/13/21 11:22 36.7 C 95 H 176/98 H 99 Signed By:<Electronically signed by Cash Baker MD>04/13/21 1139 Created: 04/13/21 1139 The status of this report is Signed.Draft = Not yet reviewed or approved by Medical Physician.Signed = Reviewed and approved by Medical Physician. Allergies Allergy/AdvReac Type Severity Reaction Status Date / Time No Known Allergies Allergy Mild Verified 05/02/21 06:42 Home Medications Medication Instructions Recorded Confirmed Type aspirin 81 mg PO QAM #90 tab 04/01/21 05/02/21 Rx clopidogrel 75 mg PO QAM #30 tab 04/01/21 05/02/21 Rx Santyl 1 applic TOPICAL QAM 04/08/21 05/02/21 History mamgqcktcici-sxtqydtu-wriftx 1 tab PO QAM 04/08/21 05/02/21 History pantoprazole 40 mg tablet,delayed 40 mg PO BID #60 tab 04/11/21 05/02/21 Rx release carvedilol 12.5 mg PO BID #60 tab 04/16/21 05/02/21 Rx lisinopril 40 mg tablet 40 mg PO QAM #90 tab 04/25/21 05/02/21 Rx acetaminophen [Tylenol Extra 500 - 1,000 mg PO Q6H PRN 04/28/21 05/02/21 History Strength] atorvastatin 40 mg PO QAM 04/28/21 05/02/21 History Past Med/Surg History Medical History AAA (abdominal aortic aneurysm) 16mm x 7mm sacular aneurysm of infrarenal abdominal aorta per 01/22/21 CT scan Alcohol use 3-4 beers daily per nursing assessment Alcohol abuse per records Carotid artery disease COPD with emphysema Per records Dizziness Recently admitted 03/30/21-04/01/21 Possibly related to HTN GERD (gastroesophageal reflux disease) UNDER CONTROL Hypertension Ischemic ulcer of right foot Follows with Wound Clinic Left renal mass Left side- per 04/15/21 MRI= 1.6 x 1.0 cm or slightly exophytic focus within the lateral aspect of the left kidney.- worrisome for RCC per records- pt will follow up as outpatient PAD (peripheral artery disease) S/p stent to right LE February 2021 with [facility] Bilateral iliac artery stenosis Renal artery stenosis Per CT scan 12/[address] Baker Surgical History H/O exploratory laparotomy (01/22/21) Exploratory laparotomy, oversew perforated duodenal ulcer, abdominal washout. Dr. Craig 01/22/2021 H/O tubal ligation H/O vascular surgery 2 stents to right leg [facility] February 2021 History of colonoscopy [place] teeth extracted Family History Mother Diabetes Lung cancer Hypertension Father Lung cancer PAD (peripheral artery disease) Denies family history of Ovarian cancer Prostate cancer Myocardial infarction Breast cancer Colorectal cancer Social History Smoking Status: Current every day smoker Tobacco Type: Cigarettes Age Started Using Tobacco: 27; packs per day: 1; Cigarettes Per Day: 1 ppd; Second Hand Exposure: No; Do You Dip or Chew Tobacco: No; Hx Alcohol Use: Yes Alcohol type: beer Alcohol Intake Frequency: 4 or More x per/Week Alcohol Intake Frequency Comment: 2-3 beers daily or more Hx Substance Use: No Preferred Language: Mozambican Communication Ability: Effective Visual Impairment: Limited Hearing Ability: Normal Galley Cook Required: No Beliefs That Will Affect Care: None marital status: Current Living Situation: Spouse current occupational status: employed current occupation: [employer] How many Children do You have: 2 Other Information That Helps Us Care for You: No Feels Safe at Home: Yes Safety Concerns: Feels Safe At This Time Childhood Exposure to Second-Hand Smoke: Yes caffeine: Yes during the past year weight has: remained stable Dental Care, Regularly: No Physical Activity Frequency: Does not Exercise Physical Activity Frequency Comment: on feet at work all day Seatbelt Use: always Sunscreen Use: No Assistive Devices: Denture - Upper, Denture - Lower and Glasses Results & Data ([facility]) Vital Signs (Past 12 Hours) Vital Signs Temp Pulse Resp BP Pulse Ox 05/02/21 07:27 202/101 H 05/02/21 07:01 36.6 C 88 18 96 05/02/21 06:39 165/111 H
--- NOTE | 2021-05-02 07:34 | History & Physical Bridge Note ---
Date of Service May 02, 2021 History & Physical Bridge Note I have examined the patient, reviewed the History & Physical and in the interval since the performance of the History & Physical I have noted the following changes of clinical significance: no changes noted
[2021-05-02] MEDS ORDERED: fentaNYL citrate 100 MCG/2 ML VIAL ONE (07:39)
[2021-05-02] MEDS ORDERED: GLYCOPYRROLATE 0.2 MG/ML VIAL ONE (07:39)
[2021-05-02] MEDS ORDERED: MIDAZOLAM HCL 1 MG/ML 2ML VIAL ONE (07:39)
[2021-05-02] MEDS ORDERED: ONDANSETRON INJ 2 MG/ML 2 ML VIAL ONE (07:39)
[2021-05-02] MEDS ORDERED: PROPOFOL IV EMULSION 10 MG/ML 20 ML VIAL IV ONE (07:39)
[2021-05-02] MEDS ORDERED: NEOSTIGMINE METHYLSULFATE 1 MG/ML 10ML VIAL ONE (07:39)
[2021-05-02] MEDS ORDERED: NITROGLYCERIN 5 MG/ML 10 ML VIAL ONE (07:39)
[2021-05-02] MEDS ORDERED: PHENYLEPHRINE HCL 10 MG/ML VIAL ONE (07:39)
[2021-05-02] MEDS ORDERED: ROCURONIUM BROMIDE 10 MG/ML 5 ML VIAL IV ONE (07:39)
[2021-05-02] MEDS ORDERED: DEXAMETHASONE SOD INJ 4 MG/ML VIAL ONE (07:39)
[2021-05-02] MEDS ORDERED: LIDOCAINE 2% 2 ML VIAL/AMP(20MG/ML) INFIL ONE (07:39)
[2021-05-02] MEDS: BUPIVACAINE/EPINEPHRINE 0.5% MPF 1:200,000 30 ML VIAL ONE ×2 (08:15→08:33)
[2021-05-02] MEDS: LIDOCAINE 1% LOCAL 20 ML VIAL ONE ×2 (08:16→08:34)
[2021-05-02] MEDS: HEPARIN (PORCINE) 1000 UNIT/ML 10 ML (CATH LAB USE ONLY) ONE ×2 (08:16→08:34)
[2021-05-02] MEDS: GELATIN SPONGE SZ 100 ONE ×2 (08:16→08:34)
[2021-05-02] MEDS: THROMBIN FOR SOLN 20000 UNIT KIT ONE ×2 (08:16→08:35)
--- NOTE | 2021-05-02 08:52 | Communication Note ---
Date of Service: May 02, 2021 Surgery cancelled due to uncontrolled hypertension. Will admit today for BP control Will place in ICU tomorrow and have art line placed and BP control if needed. Plan on Sunday.
[2021-05-02] MEDS ORDERED: ACETAMINOPHEN 500 MG TAB PO PRN (10:26)
[2021-05-02] MEDS: ASPIRIN 81 MG ECTAB PO SCH (12:16)
[2021-05-02] MEDS: ATORVASTATIN 40 MG TAB PO SCH (12:17)
[2021-05-02] MEDS: PANTOprazole 40 MG TAB PO SCH ×2 (12:17→21:06)
[2021-05-02] MEDS: CLOPIDOGREL BISULFATE 75 MG TAB PO SCH (12:17)
[2021-05-02] MEDS: CEROVITE ADV FORMULA TAB PO SCH (12:17)
[2021-05-02] MEDS: lisinopril 40 MG TAB PO SCH (12:19)
--- NOTE | 2021-05-02 12:19 | Hospitalist Consultation ---
Date of Consultation May 02, 2021 Assessment & Plan (1) Hypertensive urgency: Blood pressure has improved without intervention today. Will order amlodipine 5 mg daily, first dose today. If blood pressure does rise into the [id number], can consider hydralazine 10 mg IV x1 but I do not feel that is necessary at this time. (2) Renal artery stenosis: Renal function appears to be at baseline, continue medications as ordered (3) PAD (peripheral artery disease): Patient is on aspirin and Plavix, continue this per vascular (4) Carotid artery disease: Right CEA planned for 05/04, will try to maximize blood pressure. Should be considered high risk surgery and we can continue to follow while patient remains in the hospital. Thank you very much for the consult. History of Present Illness Attending Physician: Cash Baker MD This is a 65-year-old female with past medical history of hypertension, hypokalemia, renal artery stenosis presented electively today for a right carotid endarterectomy with Dr. Baker. Surgery was postponed until 05/04 as the patient was significantly hypertensive today. Our service was consulted by Dr. Baker for hypertension management. I saw the patient in her hospital bed. She denied any complaints was eating lunch. Specifically denied any chest pain, shortness of breath, palpitations, nausea/vomiting, fever or chills. At the time my evaluation, last blood pressure was documented at 185/75. An hour later she is at 153/63 without intervention. Allergies Allergy/AdvReac Type Severity Reaction Status Date / Time No Known Allergies Allergy Mild Verified 05/02/21 06:42 Home Medications Medication Instructions Recorded Confirmed Type aspirin 81 mg PO QAM #90 tab 04/01/21 05/02/21 Rx clopidogrel 75 mg PO QAM #30 tab 04/01/21 05/02/21 Rx Santyl 1 applic TOPICAL QAM 04/08/21 05/02/21 History hpifrchfrfcd-knsdmezn-thiuza 1 tab PO QAM 04/08/21 05/02/21 History pantoprazole 40 mg tablet,delayed 40 mg PO BID #60 tab 04/11/21 05/02/21 Rx release carvedilol 12.5 mg PO BID #60 tab 04/16/21 05/02/21 Rx lisinopril 40 mg tablet 40 mg PO QAM #90 tab 04/25/21 05/02/21 Rx acetaminophen [Tylenol Extra 500 - 1,000 mg PO Q6H PRN 04/28/21 05/02/21 History Strength] atorvastatin 40 mg PO QAM 04/28/21 05/02/21 History Patient History Medical History AAA (abdominal aortic aneurysm) 16mm x 7mm sacular aneurysm of infrarenal abdominal aorta per 01/22/21 CT scan Alcohol use 3-4 beers daily per nursing assessment Alcohol abuse per records Carotid artery disease COPD with emphysema Per records Dizziness Recently admitted 03/30/21-04/01/21 Possibly related to HTN GERD (gastroesophageal reflux disease) UNDER CONTROL Hypertension Ischemic ulcer of right foot Follows with Wound Clinic Left renal mass Left side- per 04/15/21 MRI= 1.6 x 1.0 cm or slightly exophytic focus within the lateral aspect of the left kidney.- worrisome for RCC per records- pt will follow up as outpatient PAD (peripheral artery disease) S/p stent to right LE February 2021 with [facility] Bilateral iliac artery stenosis Renal artery stenosis Per CT scan 12/[address] Baker Surgical History H/O exploratory laparotomy (01/22/21) Exploratory laparotomy, oversew perforated duodenal ulcer, abdominal washout. Dr. Craig 01/22/2021 H/O tubal ligation H/O vascular surgery 2 stents to right leg [facility] February 2021 History of colonoscopy [place] teeth extracted Family History Mother Diabetes Lung cancer Hypertension Father Lung cancer PAD (peripheral artery disease) Denies family history of Ovarian cancer Prostate cancer Myocardial infarction Breast cancer Colorectal cancer Social History Smoking Status: Current every day smoker Tobacco Type: Cigarettes Age Started Using Tobacco: 27; packs per day: 1; Cigarettes Per Day: 1 ppd; Second Hand Exposure: No; Do You Dip or Chew Tobacco: No; Hx Alcohol Use: Yes Alcohol type: beer Alcohol Intake Frequency: 4 or More x per/Week Alcohol Intake Frequency Comment: 2-3 beers daily or more Hx Substance Use: No Preferred Language: Luxembourgish Communication Ability: Effective Visual Impairment: Limited Hearing Ability: Normal Set Rider Required: No Beliefs That Will Affect Care: None marital status: Current Living Situation: Spouse current occupational status: employed current occupation: [employer] How many Children do You have: 2 Other Information That Helps Us Care for You: No Feels Safe at Home: Yes Safety Concerns: Feels Safe At This Time Childhood Exposure to Second-Hand Smoke: Yes caffeine: Yes during the past year weight has: remained stable Dental Care, Regularly: No Physical Activity Frequency: Does not Exercise Physical Activity Frequency Comment: on feet at work all day Seatbelt Use: always Sunscreen Use: No Assistive Devices: Denture - Upper, Denture - Lower and Glasses Review of Systems Constitutional: no fever, no chills, no weakness, no weight loss and no weight gain Eyes: as per Subjective / HPI Respiratory: no cough, no chest congestion, no dyspnea and no dyspnea on exertion Cardiovascular: no chest pain, no orthopnea, no palpitations, no lightheadedness and no edema Gastrointestinal: no abdominal pain, no nausea, no vomiting, no constipation and no diarrhea/loose stools Genitourinary: no dysuria, no difficulty urinating, no urinary frequency, no urinary hesitancy, no urinary urgency and no flank pain Musculoskeletal: no back pain, no neck pain, no joint pain, no stiffness and no myalgia Integumentary: no rash Neurologic: no gait abnormality, no unsteadiness, no falls and no generalized weakness Physical Exam Constitutional: cooperative; no acute distress Neck: trachea midline, no thyromegaly Respiratory: normal respiratory effort Auscultation: lungs clear to auscultation bilaterally; no crackles, no rales, no rhonchi and no wheezes Cardiovascular: Rate/Rhythm: regular rate and regular rhythm Heart Sounds: normal S1 and normal S2 Gastrointestinal (Abdomen): Inspection/Auscultation: abdomen normal to inspection Percussion/Palpation: abdomen soft; abdomen nontender, no guarding, abdomen not rigid and no hepatosplenomegaly Skin: no rashes, warm and dry Results & Data Results & Data ([facility]) Vital Signs (Past 12 Hours) Vital Signs Temp Pulse Resp BP Pulse Ox 05/02/21 11:48 153/63 H 05/02/21 11:42 36.8 C 96 H 19 92 05/02/21 10:16 36.7 C 81 16 185/75 H 96 05/02/21 07:27 202/101 H 05/02/21 07:01 36.6 C 88 18 96 05/02/21 06:39 165/111 H PG Care Time/CCT Total # of Minutes Spent Total Time Spent with Patient: Total time spent is greater than 50% in coordination of care (as documented) at patient's floor/unit and/or counseling patient: Coding Level of Care Code 88926 Inpt Consult Level 3 Diagnoses Hypertensive urgency I16.0 Renal artery stenosis I70.1 PAD (peripheral artery disease) I73.9 Carotid artery disease I65.23 Carotid artery disease type: stenosis Laterality: bilateral (1) Carotid artery disease Carotid artery disease type: stenosis Laterality: bilateral Qualified Code(s): I65.23 - Occlusion and stenosis of bilateral carotid arteries
[2021-05-02] MEDS: carvediloL 12.5 MG TAB PO SCH ×2 (12:23→21:06)
[2021-05-02] MEDS: COLLAGENASE OINT 30 GM TUBE TOP SCH (12:40)
[2021-05-02] MEDS: amLODIPine BESYLATE 5 MG TAB PO SCH (12:40)
[2021-05-03] MEDS: PANTOprazole 40 MG TAB PO SCH ×2 (08:58→20:13)
[2021-05-03] MEDS: carvediloL 12.5 MG TAB PO SCH ×2 (08:58→20:12)
[2021-05-03] MEDS: lisinopril 40 MG TAB PO SCH (09:02)
--- NOTE | 2021-05-03 09:03 | Surgery Progress Note ---
Date of Service May 03, 2021 Assessment & Plan (1) Hypertensive urgency: Pt's BP has improved by cuff measurements, but is not optimal for carotid endarterectomy. Per Dr Baker, pt to be transferred to ICU for art line continuous monitoring and BP management today in preparation for her CEA tomorrow. Pt agreeable to this plan. Pt was discussed with Dr Inman by Dr Baker. (2) Carotid artery disease: No new sx. Pt scheduled for R CEA in OR tomorrow. Admission and Anticipated Discharge Date Admission Date: May 02, 2021 Subjective 65 yo f admitted with hypertensive urgency after her carotid endarterectomy procedure was cx d/t same, seen in f/u today. Pt states feeling ok, no complaints. Denies NEWSOME, dizziness, chest pain, SOB, abd pain, N/V, extremity weakness, amaurosis, difficulty speaking/swallowing, other complaints. Pt's procedure is rescheduled for tomorrow, pending BP control. Review of Systems Review of Systems: All systems reviewed & are unremarkable except as noted in HPI & below Physical Exam Constitutional: WD/WN, vitals as above Respiratory: normal respiratory effort, lungs clear to auscultation Auscultation: + diminished lung sounds Cardiovascular: Rate/Rhythm: regular rate and regular rhythm Vessels: posterior tibial pulses present, dorsalis pedis pulses present and radial pulses present; + abnormal peripheral pulses Extremities: normal capillary refill Gastrointestinal (Abdomen): normal bowel sounds, soft, nontender, no hepatosplenomegaly Musculoskeletal: no cyanosis or clubbing, extremities motor strength 5/5 Neurologic: moves all extremities and awake; no focal motor deficits and not confused Psychiatric: A+Ox3, euthymic affect Results & Data ([facility]) Vital Signs (Past 12 Hours) Vital Signs Temp Pulse Resp BP Pulse Ox 05/03/21 07:07 36.8 C 73 18 169/87 H 96 05/03/21 03:29 37.0 C 77 18 179/79 H 97 05/02/21 22:55 36.8 C 72 16 129/76 97 (1) Carotid artery disease Carotid artery disease type: stenosis Laterality: bilateral Qualified Code(s): I65.23 - Occlusion and stenosis of bilateral carotid arteries
[2021-05-03] MEDS: ASPIRIN 81 MG ECTAB PO SCH (09:06)
[2021-05-03] MEDS: CLOPIDOGREL BISULFATE 75 MG TAB PO SCH (09:06)
[2021-05-03] MEDS: CEROVITE ADV FORMULA TAB PO SCH (09:06)
[2021-05-03] MEDS: ATORVASTATIN 40 MG TAB PO SCH (09:06)
[2021-05-03] MEDS: amLODIPine BESYLATE 5 MG TAB PO SCH (09:06)
[2021-05-03] MEDS: COLLAGENASE OINT 30 GM TUBE TOP SCH (09:07)
--- NOTE | 2021-05-03 11:29 | Critical Care Progress Note ---
Date of Service May 03, 2021 Assessment & Plan (1) Hypertensive urgency: Reason critically ill: Daniela is a 65-year-old female with a notable past medical history of hypertension, renal artery stenosis, peripheral vascular disease, COPD, and newly diagnosed carotid artery stenosis (right demonstrating high-grade stenosis to 90%, left demonstrating moderate stenosis to 60%) who has been transferred to the ICU for intensive preoperative blood pressure monitoring in anticipation of elective on 05/04. Neuro - [facility] ICU: Negative Sedation: None Analgesia: None required at this time History of Frequent Alcohol Use * Patient reports consuming 3 x 12oz beers / day, last drink on Sunday, 05/01 * Does not report h/o withdrawal. No components of HPI or physical exam c/w such today. * Does not appear she has required withdrawal support during previous admissions based on chart-review. Can consider adding AWSS with p.r.n. Ativan if needed. Cardiovascular - Carotid Artery Stenosis (generally aside PAD) * Discovered during 03/2021 work-up for dizziness; YVETTE thought to be unrelated to symptoms * BP management, as below -- goal range: < 185 / 110 * Continue ASA, Plavix, atorvastatin Hypertensive Urgency (in the preoperative setting) * Presenting BPs peaked at 180-200/100; have since been closer to 150-180/80-90 (MAPs 90s) * Continue home Coreg (12.5mg PO b.i.d.) and lisinopril (40mg PO qAM) while here * Continue amlodipine 5mg daily added earlier in course * Will place A-Line for continuous hemodynamic monitoring -- goal <185/110 * If above goal, will consider acute utilization of labetalol, hydralazine Infrarenal AAA - noted on imaging 01/22/21 * No acute concerns. Vascular following and will arrange further management as outpatient. Respiratory - Tobacco Abuse / Suspected COPD * No acute concerns right now * 40 pack-year history; smoking cessation strongly advised * Based on review of PCP notes, patient has declined PFTs, inhaler + cessation therapies GI - History of PUD with Duodenal Perforation * s/p corrective surgery in 12/2020 * No acute concerns at present * Continue home PPI b.i.d. Diet: Heart Healthy. NPO at midnight. RENAL/LYTES - Renal Artery Stenosis * Noted. Seen by nephrology, vascular during previous course. No intervention indicated at present. Lytes stable. Replete p.r.n. - - No concerns at this time ENDO - - No acute concerns at present. HEME - - Stable H&H. Will monitor perioperatively. ID - - No concerns for infection at this point INTEGUMENTARY - - No acute concerns at present. LINES/IV ACCESS - PIVs intact. DVT PROPHYLAXIS - Ambulate ad lisa. Thank you for allowing us to be part of this patient's care. Please refer to Dr. Inman's documentation for any further recommendations. (2) Right foot ulcer: (3) Tobacco abuse: (4) Gastric perforation: (5) Pulmonary edema: (6) Alcohol use: (7) Left renal mass: (8) COPD with emphysema: Admission and Anticipated Discharge Date Admission Date: May 02, 2021 Francisco Suarez is a 65-year-old female with a notable past medical history of hypertension, renal artery stenosis, peripheral vascular disease, COPD, and newly diagnosed carotid artery stenosis (right demonstrating high-grade stenosis to 90%, left demonstrating moderate stenosis to 60%) that was discovered during work-up for dizziness during hospitalization in March 2021 who has been transferred to the ICU for intensive preoperative blood pressure monitoring. Of note, patient has been scheduled to undergo carotid endarterectomy multiple times, but has been was originally scheduled to undergo carotid endarterectomy earlier this hospitalization, however due to hypertensive urgency upon her arrival, the surgery was postponed. Around the time of her arrival, her blood pressure were noted to max out at around 200/100 (without symptoms); preceding this time, she endorses taking her lisinopril daily, but missing her Coreg q.o.d. Throughout her hospital stay, she has been receiving her home Coreg and lisinopril, and amlodipine 5 mg daily was added to further aid with control. IV antihypertensives have not yet been required. Her blood pressures have primarily ranged between 150 - 180 / 80 - 90s (MAPs ~90s) since. She denies any headache, changes in vision, chest pain, palpitations, shortness of breath, nausea, vomiting, or recent illness. In review of her chart, it was noted that patient has regular history of alcohol use. On history today, she endorses drinking about 3X 12 ounce cans of beer a day without much variation. She says that her last drink was approximately 48 hours ago, the day prior to her admission. She denies any difficulty with withdrawal-like symptoms in the past. Further, she does endorse a 42-krby-shky history, smoking 1 pack a day for approximately 30 years. Review of Systems Review of Systems: As per HPI Physical Exam Physical Exam: General: 65-year-old female who is alert, oriented, and appears in no acute distress. Body habitus: Thin. HEENT: NCAT. Eyes - Sclera are white, anicteric, and without injection. Patient wears glasses. PERRL. EOMs display full ROM bilaterally. Mouth - MMM with no tonsillar edema or exudates. Cardiac: Normal rate and regular rhythm; S1 and S2 present with no murmurs, rubs, or gallops. Pulmonary: Good respiratory effort with symmetric expansion of the chest. No use of accessory muscles. Lungs demonstrate soft rhonchi at the bases, but are otherwise CTAB. Abdominal: Normoactive bowel sounds. Abdomen was soft, nondistended, and non- tender to palpation. Extremities: Upper and lower extremities are warm and well perfused. Neuro: - Cranial Nerves: CN I, IX, and X - not assessed. II - PERRL. III/IV/ - EOMs WNL. V - Facial sensation in tact in all three divisions; jaw opening WNL. VII - Patient is able to smile symmetrically and keep eyes close against resistance. VIII - Patient is able to hear finger snapping equally and appropriately. Lyssa ent is able to rotate head and shrug shoulders against resistance. XI - Soft palate raises equally and appropriately while saying "ah." XII - patient is able to stick out tongue and deviate from jdns-sd-oser appropriately. - Motor: UE - Finger, wrist, elbow, and shoulder strength is 5/5 bilaterally. LE - Hip, knee, and ankle strength is 5/5 bilaterally. - Sensation: UE and LE sensation to light touch is grossly intact bilaterally. - Reflexes - No clonus. - [id number]-ps-gwdl: WNL b/l. No dysmetria. [id number]-[id number]; WNL b/l. Psych: Well-developed, well-nourished, appropriately dressed for occasion. B ehavior is cooperative and appropriate. Affect is WNL. Insight is appropriate. Results & Data Results & Data ([facility]) Vital Signs (Past 12 Hours) Vital Signs Temp Pulse Pulse Resp BP Pulse Ox 05/03/21 09:30 65 05/03/21 07:07 36.8 C 73 18 169/87 H 96 05/03/21 03:29 37.0 C 77 18 179/79 H 97 Resident Activity Tracking Resident Involvement: Resident Care Provided Care Provided: Adult Hospital Medicine (1) COPD with emphysema Emphysema type: unspecified Qualified Code(s): J43.9 - Emphysema, unspecified (2) Right foot ulcer Non-pressure ulcer stage: unspecified non-pressure ulcer stage Qualified Code(s): L97.519 - Non-pressure chronic ulcer of other part of right foot with unspecified severity
--- NOTE | 2021-05-03 13:39 | Critical Care Consultation ---
Date of Consultation May 03, 2021 Assessment & Plan (1) Hypertensive urgency: Reason critically ill: Daniela is a 65-year-old female with a notable past medical history of hypertension, renal artery stenosis, peripheral vascular disease, COPD, and newly diagnosed carotid artery stenosis (right demonstrating high-grade stenosis to 90%, left demonstrating moderate stenosis to 60%) who has been transferred to the ICU for intensive preoperative blood pressure monitoring in anticipation of elective on 05/04. Neuro - [facility] ICU: Negative Sedation: None Analgesia: None required at this time History of Frequent Alcohol Use * Patient reports consuming 3 x 12oz beers / day, last drink on Sunday, 05/01 * Does not report h/o withdrawal. No components of HPI or physical exam c/w such today. * Does not appear she has required withdrawal support during previous admissions based on chart-review. Can consider adding AWSS with p.r.n. Ativan if needed. Cardiovascular - Carotid Artery Stenosis (generally aside PAD) * Discovered during 03/2021 work-up for dizziness; YVETTE thought to be unrelated to symptoms * BP management, as below -- goal range: < 185 / 110 * Continue ASA, Plavix, atorvastatin Hypertensive Urgency (in the preoperative setting) * Presenting BPs peaked at 180-200/100; have since been closer to 150-180/80-90 (MAPs 90s) * Continue home Coreg (12.5mg PO b.i.d.) and lisinopril (40mg PO qAM) while here * Continue amlodipine 5mg daily added earlier in course * Will place A-Line for continuous hemodynamic monitoring -- goal <185/110 * If above goal, will consider acute utilization of labetalol, hydralazine Infrarenal AAA - noted on imaging 01/22/21 * No acute concerns. Vascular following and will arrange further management as outpatient. Respiratory - Tobacco Abuse / Suspected COPD * No acute concerns right now * 40 pack-year history; smoking cessation strongly advised * Based on review of PCP notes, patient has declined PFTs, inhaler + cessation therapies GI - History of PUD with Duodenal Perforation * s/p corrective surgery in 12/2020 * No acute concerns at present * Continue home PPI b.i.d. Diet: Heart Healthy. NPO at midnight. RENAL/LYTES - Renal Artery Stenosis * Noted. Seen by nephrology, vascular during previous course. No intervention indicated at present. Lytes stable. Replete p.r.n. - - No concerns at this time ENDO - - No acute concerns at present. HEME - - Stable H&H. Will monitor perioperatively. ID - - No concerns for infection at this point INTEGUMENTARY - - No acute concerns at present. LINES/IV ACCESS - PIVs intact. DVT PROPHYLAXIS - SCDs. Thank you for allowing us to be part of this patient's care. Please refer to Dr. Inman's documentation for any further recommendations. (2) Right foot ulcer: (3) Tobacco abuse: (4) Gastric perforation: (5) Pulmonary edema: (6) Alcohol use: (7) Left renal mass: (8) COPD with emphysema: Supervising Physician Co-Signing Physician Notes Dr. Ospina was the resident-physician during care of patient. I separately evaluated patient for finney portions of the history and the exam. I was present during the critical portion of medical decision making, and I discussed the case with the resident. I generally agree with the findings and plan except for any additions/exceptions noted. Patient seen and examined at bedside. She is transferred to the ICU with a prophylactic measure to control her blood pressure prior to carotid endarterectomy She has past medical history of disease, renal artery stenosis, COPD not on any inhalers at home. At the time of examination patient systolic blood pressure was 150. Patient was not complaining of any chest pain, no shortness of breath. She does complain of chronic cough which is early in the morning yellow in color. Denies any hemoptysis No night sweats, no weight loss. Dr. Baker had discussed the case with me yesterday. She was here couple of weeks ago for the same procedure but it was postponed as the blood pressure on the A-line reading was very high. Constitutional: No acute distress, frail-appearing HEENT: EOMI, PERRLA Respiratory system: Decreased air entry bilaterally, no crackles, positive rhonchi more on the right side, mild expiratory wheeze CVS: S1-S2 positive, no murmurs or gallops Abdomen: Soft, nontender, nondistended, positive bowel sounds x4 Extremities: +2 pulses bilaterally radialis/ dorsalis pedis, no cyanosis, no edema Neuro: Awake alert oriented x3 Psych: Normal mood and affect G/U: No King Right radial A-line put in today. There is difference of 50mmHg in the systolic between the cough and the radial A-line. I think the patient has significant peripheral vascular disease which is one of the big reason for patient discrepancy between the readings. If the arterial line is placed in the brachial artery may be will get better blood pressure readings. For the time being I have increased the amlodipine to 10 mg on a daily basis I will add hydralazine to it if need be. Please note the above document was generated using voice recognition software. It may contain grammatical, syntax or spelling errors.Any formal questions or c oncerns about the content, text or information contained within the body of this dictation should be directly addressed to the provider for clarification. History of Present Illness Attending Physician: Cash Baker MD Daniela is a 65-year-old female with a notable past medical history of hypertension, renal artery stenosis, peripheral vascular disease, COPD, and newly diagnosed carotid artery stenosis (right demonstrating high-grade stenosis to 90%, left demonstrating moderate stenosis to 60%) that was discovered during work-up for dizziness during hospitalization in March 2021 who has been transferred to the ICU for intensive preoperative blood pressure monitoring. Of note, patient has been scheduled to undergo carotid endarterectomy multiple times, but has been was originally scheduled to undergo carotid endarterectomy earlier this hospitalization, however due to hypertensive urgency upon her arrival, the surgery was postponed. Around the time of her arrival, her blood pressure were noted to max out at around 200/100 (without symptoms); preceding this time, she endorses taking her lisinopril daily, but missing her Coreg q.o.d. Throughout her hospital stay, she has been receiving her home Coreg and lisinopril, and amlodipine 5 mg daily was added to further aid with control. IV antihypertensives have not yet been required. Her blood pressures have primarily ranged between 150 - 180 / 80 - 90s (MAPs ~90s) since. She denies any headache, changes in vision, chest pain, palpitations, shortness of breath, nausea, vomiting, or recent illness. In review of her chart, it was noted that patient has regular history of alcohol use. On history today, she endorses drinking about 3X 12 ounce cans of beer a day without much variation. She says that her last drink was approximately 48 hours ago, the day prior to her admission. She denies any difficulty with withdrawal-like symptoms in the past. Further, she does endorse a 48-mipu-boxp history, smoking 1 pack a day for approximately 30 years. Allergies Allergy/AdvReac Type Severity Reaction Status Date / Time No Known Allergies Allergy Mild Verified 05/02/21 06:42 Home Medications Medication Instructions Recorded Confirmed Type aspirin 81 mg PO QAM #90 tab 04/01/21 05/02/21 Rx clopidogrel 75 mg PO QAM #30 tab 04/01/21 05/02/21 Rx Santyl 1 applic TOPICAL QAM 04/08/21 05/02/21 History xdpbpnvcjcxv-mhurjhxb-yoeuri 1 tab PO QAM 04/08/21 05/02/21 History pantoprazole 40 mg tablet,delayed 40 mg PO BID #60 tab 04/11/21 05/02/21 Rx release carvedilol 12.5 mg PO BID #60 tab 04/16/21 05/02/21 Rx lisinopril 40 mg tablet 40 mg PO QAM #90 tab 04/25/21 05/02/21 Rx acetaminophen [Tylenol Extra 500 - 1,000 mg PO Q6H PRN 04/28/21 05/02/21 History Strength] atorvastatin 40 mg PO QAM 04/28/21 05/02/21 History Patient History Medical History AAA (abdominal aortic aneurysm) 16mm x 7mm sacular aneurysm of infrarenal abdominal aorta per 01/22/21 CT scan Alcohol use 3-4 beers daily per nursing assessment Alcohol abuse per records Carotid artery disease COPD with emphysema Per records Dizziness Recently admitted 03/30/21-04/01/21 Possibly related to HTN GERD (gastroesophageal reflux disease) UNDER CONTROL Hypertension Ischemic ulcer of right foot Follows with Wound Clinic Left renal mass Left side- per 04/15/21 MRI= 1.6 x 1.0 cm or slightly exophytic focus within the lateral aspect of the left kidney.- worrisome for RCC per records- pt will follow up as outpatient PAD (peripheral artery disease) S/p stent to right LE February 2021 with [facility] Bilateral iliac artery stenosis Renal artery stenosis Per CT scan 12/[address] Baker Surgical History H/O exploratory laparotomy (01/22/21) Exploratory laparotomy, oversew perforated duodenal ulcer, abdominal washout. Dr. Craig 01/22/2021 H/O tubal ligation H/O vascular surgery 2 stents to right leg [facility] February 2021 History of colonoscopy [place] teeth extracted Family History Mother Diabetes Lung cancer Hypertension Father Lung cancer PAD (peripheral artery disease) Denies family history of Ovarian cancer Prostate cancer Myocardial infarction Breast cancer Colorectal cancer Social History Smoking Status: Current every day smoker Tobacco Type: Cigarettes Age Started Using Tobacco: 27; packs per day: 1; Cigarettes Per Day: 1 ppd; Second Hand Exposure: No; Do You Dip or Chew Tobacco: No; Hx Alcohol Use: Yes Alcohol type: beer Alcohol Intake Frequency: 4 or More x per/Week Alcohol Intake Frequency Comment: 2-3 beers daily or more Hx Substance Use: No Preferred Language: Nauruan Communication Ability: Effective Visual Impairment: Limited Hearing Ability: Normal Automation Clerk Required: No Beliefs That Will Affect Care: None marital status: Current Living Situation: Spouse current occupational status: employed current occupation: [employer] How many Children do You have: 2 Other Information That Helps Us Care for You: No Feels Safe at Home: Yes Safety Concerns: Feels Safe At This Time Childhood Exposure to Second-Hand Smoke: Yes caffeine: Yes during the past year weight has: remained stable Dental Care, Regularly: No Physical Activity Frequency: Does not Exercise Physical Activity Frequency Comment: on feet at work all day Seatbelt Use: always Sunscreen Use: No Assistive Devices: Denture - Upper, Denture - Lower and Glasses Review of Systems Review of Systems: as per HPI Physical Exam Physical Exam: General: 65-year-old female who is alert, oriented, and appears in no acute distress. Body habitus: Thin. HEENT: NCAT. Eyes - Sclera are white, anicteric, and without injection. Patient wears glasses. PERRL. EOMs display full ROM bilaterally. Mouth - MMM with no tonsillar edema or exudates. Cardiac: Normal rate and regular rhythm; S1 and S2 present with no murmurs, rubs, or gallops. Pulmonary: Good respiratory effort with symmetric expansion of the chest. No use of accessory muscles. Lungs demonstrate soft rhonchi at the bases, but are otherwise CTAB. Abdominal: Normoactive bowel sounds. Abdomen was soft, nondistended, and non- tender to palpation. Extremities: Upper and lower extremities are warm and well perfused. Neuro: - Cranial Nerves: CN I, IX, and X - not assessed. II - PERRL. III/IV/ - EOMs WNL. V - Facial sensation in tact in all three divisions; jaw opening WNL. VII - Patient is able to smile symmetrically and keep eyes close against resistance. VIII - Patient is able to hear finger snapping equally and appropriately. Patient is able to rotate head and shrug shoulders against resistance. XI - Soft palate raises equally and appropriately while saying "ah." XII - patient is able to stick out tongue and deviate from [id number]-em-[id number] appropriately. - Motor: UE - Finger, wrist, elbow, and shoulder strength is 5/5 bilaterally. LE - Hip, knee, and ankle strength is 5/5 bilaterally. - Sensation: UE and LE sensation to light touch is grossly intact bilaterally. - Reflexes - No clonus. - Tasltr-by-wxxi: WNL b/l. No dysmetria. [id number]-[id number]; WNL b/l. Psych: Well-developed, well-nourished, appropriately dressed for occasion. Behavior is cooperative and appropriate. Affect is WNL. Insight is appropriate. Results & Data Results & Data ([facility]) Vital Signs (Past 12 Hours) Vital Signs Temp Pulse Pulse Resp BP Pulse Ox 05/03/21 09:30 65 05/03/21 07:07 36.8 C 73 18 169/87 H 96 05/03/21 03:29 37.0 C 77 18 179/79 H 97 05/02/21 06:35 Resident Activity Tracking Resident Involvement: Resident Care Provided Care Provided: Adult Hospital Medicine (1) COPD with emphysema Emphysema type: unspecified Qualified Code(s): J43.9 - Emphysema, unspecified (2) Right foot ulcer Non-pressure ulcer stage: unspecified non-pressure ulcer stage Qualified Code(s): L97.519 - Non-pressure chronic ulcer of other part of right foot with unspecified severity
[2021-05-03] MEDS ORDERED: amLODIPine BESYLATE 5 MG TAB PO ONE (15:42)
--- NOTE | 2021-05-03 15:44 | Procedure Note ---
Procedure Note Date of Service May 03, 2021 ARTERIAL LINE PROCEDURE NOTE: Procedure: Arterial Line Placement Attending: Dr. Eva Inman MD Indication: Monitoring for blood pressure Anesthesia: Local Lidocaine 1% Consent was signed and placed on the chart prior to procedure. Indication, risks, and benefits were explained at length. A time-out was completed verifying correct patient, procedure, site, positioning, and implant(s) or special equipment if applicable. Allens test was performed to ensure adequate perfusion. Patients right wrist was prepped and draped in the usual sterile fashion. Ultrasound guidance was used to aid needle placement. A 20g Arrow arterial line was introduced into the Right radial artery. Catheter was threaded, and the needle was removed with appropriate pulsatile blood return. Good waveform was observed on the monitor. The patient tolerated the procedure well. Confirmation of placement with ultrasound. Complications: None Blood Loss: 2cc Coding CPT Codes Tubes, Drains, and Vasc Access - Tubes, Drains, and Vasc Access: [id number] Place Catheter In Artery ([id number]) Tubes, Drains, and Vasc Access - Tubes, Drains, and Vasc Access: [id number] Ultrasound Guidance For Vascular ([id number]) [facility] [place] [facility] [place] Procedure Codes (Charges) Tubes, Drains, and Vasc Access Procedure 1: Tubes, Drains, and Vasc Access: [id number] Place Catheter In Artery Procedure 2: Tubes, Drains, and Vasc Access: [id number] Ultrasound Guidance For Vascular
--- NOTE | 2021-05-03 17:35 | Billing Data ---
Date of Service May 03, 2021 Coding Level of Care Code 79289 Inpt Consult Level 4
--- NOTE | 2021-05-03 19:13 | Anesthesiology Consultation ---
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 History Surgery Operation Date: 05/02/21 08:00 Proposed Procedures p Right Carotid Endarterectomy - Cash Baker MD Operation Date: 05/04/21 07:30 Proposed Procedures p Right Carotid Endarterectomy - Cash Baker MD Height/Weight Height: 5 ft 2 in Weight: 44.65 kg Allergies Allergy/AdvReac Type Severity Reaction Status Date / Time No Known Allergies Allergy Mild Verified 05/02/21 06:42 Medications Home Medications Medication Instructions Recorded Confirmed Last Taken aspirin 81 mg PO QAM #90 tab 04/01/21 05/02/21 04/30/21 09:00 clopidogrel 75 mg PO QAM #30 tab 04/01/21 05/02/21 05/01/21 13:00 Santyl 1 applic TOPICAL QAM 04/08/21 05/02/21 05/01/21 09:00 [id number] 1 tab PO QAM 04/08/21 05/02/21 05/01/21 09:00 pantoprazole 40 mg tablet,delayed 40 mg PO BID #60 tab 04/11/21 05/02/21 04/29/21 release carvedilol 12.5 mg PO BID #60 tab 04/16/21 05/02/21 05/01/21 17:30 lisinopril 40 mg tablet 40 mg PO QAM #90 tab 04/25/21 05/02/21 05/02/21 05:45 acetaminophen [Tylenol Extra 500 - 1,000 mg PO Q6H PRN 04/28/21 05/02/21 05/01/21 17:30 Strength] atorvastatin 40 mg PO QAM 04/28/21 05/02/21 Unknown Active Medications Generic Name Dose Route Start Last Admin Trade Name Freq PRN Reason Stop Dose Admin Aspirin 81 mg 05/02/21 11:00 05/03/21 09:06 Aspirin 81 Mg Ectab PO 06/01/21 10:59 81 mg QAM ALICIA Administration Atorvastatin Calcium 40 mg 05/02/21 11:00 05/03/21 09:06 Atorvastatin 40 Mg Tab PO 06/01/21 10:59 40 mg QAM ALICIA Administration Carvedilol 12.5 mg 05/02/21 11:00 05/03/21 08:58 Carvedilol 12.5 Mg Tab PO 06/01/21 10:59 12.5 mg BID ALICIA Administration Clopidogrel Bisulfate 75 mg 05/02/21 11:00 05/03/21 09:06 Clopidogrel Bisulfate 75 Mg Tab PO 06/01/21 10:59 75 mg QAM ALICIA Administration Collagenase 1 appln 05/02/21 11:00 05/03/21 09:07 Collagenase Oint 30 Gm Tube TOP 06/01/21 10:59 1 appln QAM ALICIA Administration Lisinopril 40 mg 05/02/21 11:00 05/03/21 09:02 Lisinopril 40 Mg Tab PO 06/01/21 10:59 40 mg QAM ALICIA Administration Multivitamins/Minerals 1 tab 05/02/21 11:00 05/03/21 09:06 Cerovite Adv Formula Tab PO 06/01/21 10:59 1 tab QAM ALICIA Administration Pantoprazole Sodium 40 mg 05/02/21 11:00 05/03/21 08:58 Pantoprazole 40 Mg Tab PO 06/01/21 10:59 40 mg BID ALICIA Administration NPO Date Last Intake of Fluids: 05/02/21 Time Last Intake of Fluids: 05:45 Last Intake of Fluids Comment: meds with sip of water Date Last Intake of Solids: 05/01/21 Time Last Intake of Solids: 18:00 Past Medical History Medical History AAA (abdominal aortic aneurysm) 16mm x 7mm sacular aneurysm of infrarenal abdominal aorta per 01/22/21 CT scan Alcohol use 3-4 beers daily per nursing assessment Alcohol abuse per records Carotid artery disease COPD with emphysema Per records Dizziness Recently admitted 03/30/21-04/01/21 Possibly related to HTN GERD (gastroesophageal reflux disease) UNDER CONTROL Hypertension Ischemic ulcer of right foot Follows with Wound [facility] Left renal mass Left side- per 04/15/21 MRI= 1.6 x 1.0 cm or slightly exophytic focus within the lateral aspect of the left kidney.- worrisome for RCC per records- pt will follow up as outpatient PAD (peripheral artery disease) S/p stent to right LE February 2021 with [facility] Bilateral iliac artery stenosis Renal artery stenosis Per CT scan 12/[address] Baker Past Family History Family History Mother Diabetes Lung cancer Hypertension Father Lung cancer PAD (peripheral artery disease) Denies family history of Ovarian cancer Prostate cancer Myocardial infarction Breast cancer Colorectal cancer Past Surgical History Surgical History H/O exploratory laparotomy (01/22/21) Exploratory laparotomy, oversew perforated duodenal ulcer, abdominal washout. Dr. Craig 01/22/2021 H/O tubal ligation H/O vascular surgery 2 stents to right leg [facility] February 2021 History of colonoscopy Advance teeth extracted Social History Smoking Status: Current every day smoker tobacco type: cigarettes Smoking cigarettes per day: 1 ppd Do You Dip or Chew Tobacco: No Hx Alcohol Use: Yes Alcohol type: beer alcohol intake frequency: 3 or more drinks per day Alcohol Intake Frequency Comment: 3 BEER A DAY Hx Substance Use: No substance use type: does not use Physical Exam Vital Signs Last Vital Signs Temp 98.2 F 05/03/21 07:07 Pulse 65 05/03/21 09:30 Resp 18 05/03/21 07:07 BP 169/87 H 05/03/21 07:07 Pulse Ox 96 05/03/21 07:07 Testing Laboratory Results 05/02/21 06:35 Blood Type O Negative 05/02/21 06:35 Antibody Screen NEGATIVE 05/02/21 06:35 Electrocardiogram Date: 03/30/21 Findings: + NSR @ (80 bpm) Normal EKG per cardio Chest X-Ray Date: 03/30/21 Findings: + NAD and + cardiomegaly (Mild) There is pulmonary emphysema. There is no overt failure. There is no focal pulmonary consolidation. There are no significant pleural effusions Echocardiogram Date: 03/24/21 EF: >70% RWMA: + none Other Findings: + LVH (Moderate/concentric) Valvular Disease: + no significant valvular disease LV cavity is small. Compared with prior study on 01/24/2021no significant changes. Other Testing Brain MRI 03/30/2021 = no acute intracranial findings. Matter T2 hyperintense foci suggestive of mild small vessel disease. Neck CTA 03/30/2021 = focal high-grade stenosis of proximal right internal carotid artery with near complete occlusion (greater than 90% luminal narrowing). Approximately 60% focal stenosis of the proximal left internal carotid artery. High-grade stenosis at the origin of the right external carotid artery. Head CTA 03/30/2021 = no evidence of hemorrhage, mass-effect or acute territorial ischemia by CT criteria along the angiographic phase technique. Unremarkable CTA of the brain.
[2021-05-03] MEDS ORDERED: hydrALAZINE HCL 20 MG/ML VIAL IV ONE (19:39)
[2021-05-03] MEDS: guaiFENesin 600 MG TABCR PO SCH (20:13)
--- NOTE | 2021-05-03 21:40 | Hospitalist Progress Note ---
Date of Service May 03, 2021 Assessment & Plan (1) Hypertensive urgency: Blood pressure is stable today on amlodipine 10mg daily, Coreg 12.5mg BID and lisinopril 40mg daily (2) Renal artery stenosis: Renal function appears to be at baseline, continue medications as ordered (3) PAD (peripheral artery disease): Patient is on aspirin and Plavix, continue this per vascular (4) Carotid artery disease: Right CEA planned for 05/04, will try to maximize blood pressure. Should be considered high risk surgery and we can continue to follow while patient remains in the hospital. Thank you very much for the consult. Admission and Anticipated Discharge Date Admission Date: May 02, 2021 Subjective patient doing well, no complaints BP well controlled on oral regimen eating well, no GI symptoms Review of Systems Review of Systems: All systems reviewed & are unremarkable except as noted in Subjective Physical Exam Constitutional: WD/WN, vitals as above Neck: trachea midline, no thyromegaly Respiratory: normal respiratory effort, lungs clear to auscultation Cardiovascular: RRR, no murmur, no edema Gastrointestinal (Abdomen): normal bowel sounds, soft, nontender, no hepa tosplenomegaly Musculoskeletal: no cyanosis or clubbing, extremities motor strength 5/5 Skin: no rashes, warm and dry Neurologic: patellar DTR's 2+ bilat, sensation intact and PERRL, EOMI, accommodation nl, no face palsy, no dysarthria Psychiatric: A+Ox3, euthymic affect Results & Data Results & Data ([facility]) Laboratory Results Laboratory Results - last 24 hr 05/03/21 16:45 Nasal Screen MRSA (PCR) Negative Medications Administered Current Inpatient Medications Acetaminophen (Acetaminophen 500 Mg Tab) 500 - 1,000 mg PO Q6H PRN; Protocol PRN Reason: Pain Stop: 06/01/21 10:25 Amlodipine Besylate (Amlodipine Besylate 5 Mg Tab) [facility] [place] Stop: 06/03/21 08:59 Aspirin (Aspirin 81 Mg Ectab) 81 mg PO QAM [facility] Stop: 06/01/21 10:59 Last Admin: 05/03/21 09:06 Dose: 81 mg Documented by: Atorvastatin Calcium (Atorvastatin 40 Mg Tab) 40 mg PO QAM [facility] Stop: 06/01/21 10:59 Last Admin: 05/03/21 09:06 Dose: 40 mg Documented by: Carvedilol (Carvedilol 12.5 Mg Tab) 12.5 mg PO BID [facility] Stop: 06/01/21 10:59 Last Admin: 05/03/21 20:12 Dose: 12.5 mg Documented by: Clopidogrel Bisulfate (Clopidogrel Bisulfate 75 Mg Tab) [facility] [place] Stop: 06/01/21 10:59 Last Admin: 05/03/21 09:06 Dose: 75 mg Documented by: Collagenase (Collagenase Oint 30 Gm Tube) 1 appln [facility] Stop: 06/01/21 10:59 Last Admin: 05/03/21 09:07 Dose: 1 appln Documented by: Guaifenesin (Guaifenesin 600 Mg Tabcr) 1,200 mg PO Q12 [facility] Stop: 06/02/21 20:59 Last Admin: 05/03/21 20:13 Dose: 1,200 mg Documented by: Cefazolin Sodium (Ancef 1000mg) 1,000 mg in 7.5 mls @ 2.5 mls/min IV PREOP ONE Stop: 05/04/21 06:02 Lisinopril (Lisinopril 40 Mg Tab) 40 mg PO [facility] Stop: 06/01/21 10:59 Last Admin: 05/03/21 09:02 Dose: 40 mg Documented by: Multivitamins/Minerals (Cerovite Adv Formula Tab) 1 tab PO [facility] Stop: 06/01/21 10:59 Last Admin: 05/03/21 09:06 Dose: 1 tab Documented by: Pantoprazole Sodium (Pantoprazole 40 Mg Tab) 40 mg PO BID [facility] Stop: 06/01/21 10:59 Last Admin: 05/03/21 20:13 Dose: 40 mg Documented by: PG Care Time/CCT Total # of Minutes Spent Total Time Spent with Patient: Total time spent is greater than 50% in coordinat ion of care (as documented) at patient's floor/unit and/or counseling patient: Coding Level of Care Code 17309 Subseq Hosp Care Lvl 2 Diagnoses Hypertensive urgency I16.0 Renal artery stenosis I70.1 PAD (peripheral artery disease) I73.9 Carotid artery disease I65.23 Carotid artery disease type: stenosis Laterality: bilateral (1) Carotid artery disease Carotid artery disease type: stenosis Laterality: bilateral Qualified Code(s): I65.23 - Occlusion and stenosis of bilateral carotid arteries
[2021-05-04] MEDS ORDERED: hydrALAZINE HCL 20 MG/ML VIAL IV ONE ×2 (03:49→06:15)
[2021-05-04] MEDS ORDERED: ceFAZolin 1000MG 1,000 MG/7.5 ML SYR IV ONE (06:00)
[2021-05-04] MEDS ORDERED: NITROGLYCERIN/D5W 100 MCG/ML BTL ONE (06:48)
[2021-05-04] MEDS ORDERED: MIDAZOLAM HCL 1 MG/ML 2ML VIAL ONE (06:53)
[2021-05-04] MEDS ORDERED: fentaNYL citrate 100 MCG/2 ML VIAL ONE ×3 (06:53→10:05)
[2021-05-04] MEDS ORDERED: BUPIVACAINE/EPINEPHRINE 0.5% MPF 1:200,000 30 ML VIAL ONE (07:02)
[2021-05-04] MEDS ORDERED: HEPARIN (PORCINE) 1000 UNIT/ML 10 ML (CATH LAB USE ONLY) ONE (07:02)
[2021-05-04] MEDS ORDERED: LIDOCAINE 1% LOCAL 20 ML VIAL ONE (07:02)
[2021-05-04] MEDS ORDERED: THROMBIN FOR SOLN 20000 UNIT KIT ONE (07:03)
[2021-05-04] MEDS ORDERED: GELATIN SPONGE SZ 100 ONE ×2 (07:03→11:28)
--- NOTE | 2021-05-04 07:09 | History & Physical Bridge Note ---
Date of Service May 04, 2021 History & Physical Bridge Note BP controlled nicely by ICU. Patient for a right CEA today. I have discussed the risks options and benefits of the procedure with the patient. The patient understands the risks options and benefits and agrees to the procedure. I have examined the patient, reviewed the History & Physical and in the interval since the performance of the History & Physical I have noted the following changes of clinical significance: no changes noted
[2021-05-04] MEDS ORDERED: PROPOFOL IV EMULSION 10 MG/ML 20 ML VIAL IV ONE (08:18)
[2021-05-04] MEDS ORDERED: ROCURONIUM BROMIDE 10 MG/ML 5 ML VIAL IV ONE (08:18)
[2021-05-04] MEDS ORDERED: LIDOCAINE 2% 2 ML VIAL/AMP(20MG/ML) INFIL ONE (08:18)
[2021-05-04] MEDS ORDERED: PHENYLEPHRINE HCL 10 MG/ML VIAL ONE (08:18)
[2021-05-04] MEDS ORDERED: NITROGLYCERIN 5 MG/ML 10 ML VIAL ONE (08:18)
[2021-05-04] MEDS ORDERED: ePHEDrine sulfate 50 MG/ML SYR ONE (08:18)
[2021-05-04] MEDS ORDERED: DEXAMETHASONE SOD INJ 4 MG/ML VIAL ONE (08:19)
[2021-05-04] MEDS ORDERED: ONDANSETRON INJ 2 MG/ML 2 ML VIAL ONE (08:19)
[2021-05-04] MEDS ORDERED: HEPARIN SOD (PORCINE) 1000 UNIT/ML ONE (08:20)
[2021-05-04] MEDS ORDERED: ONDANSETRON INJ 2 MG/ML 2 ML VIAL IV PRN ×2 (08:57→13:02)
[2021-05-04] MEDS ORDERED: ePHEDrine sulfate 50 MG/ML AMP IV PRN ×2 (08:57→13:02)
[2021-05-04] MEDS ORDERED: FLUMAZENIL 0.1 MG/1 ML 10 ML VIAL IV PRN ×2 (08:57→13:02)
[2021-05-04] MEDS ORDERED: LABETALOL HCL IV 5 MG/ML 20ML IV PRN ×2 (08:57→13:02)
[2021-05-04] MEDS ORDERED: fentaNYL citrate 100 MCG/2 ML VIAL IV PRN ×2 (08:57→13:02)
[2021-05-04] MEDS ORDERED: PROMETHAZINE HCL 12.5 MG in SODIUM CHLORIDE 0.9% 50 ML IV PRN ×2 (08:57→13:02)
[2021-05-04] MEDS ORDERED: NALOXONE HCL 0.4 MG/1 ML VIAL/CARP IV PRN ×2 (08:57→13:02)
[2021-05-04] MEDS ORDERED: ATROPINE SULFATE 0.1 MG/ML 10ML SYR IV PRN ×2 (08:57→13:02)
[2021-05-04] MEDS ORDERED: ATROPINE SULFATE 1MG/2.5ML SYR ONE (09:29)
[2021-05-04] MEDS ORDERED: PROTAMINE SULFATE 10 MG/ML 5 ML VIAL ONE (10:38)
--- NOTE | 2021-05-04 11:58 | Operative Report ---
Post Operative Report Pre & Post Diagnosis Operation Date: 05/02/21 08:00 <No data on this case meets the specified criteria> Operation Date: 05/04/21 07:30 Pre-Op Diagnosis: Right Carotid Artery Stenosis Post-Op Diagnosis: Right Carotid Artery Stenosis I identified the patient and participated in the time-out.: Yes Procedure Operation Date: 05/02/21 08:00 <No data on this case meets the specified criteria> Operation Date: 05/04/21 07:30 Actual Procedures p Right Carotid Endarterectomy(Right) - Cash Baker MD Surgeon Cash Baker MD Skidder Runner Kota Jarquin MD, Mony Shahid PA-C Estimated Blood Loss 300 Findings Consistent with Post-Op Diagnosis Specimens R Carotid Plaque Description of Procedure The patient was taken to the operating room and placed in supine position. After general anesthesia was accomplished the right-side of the neck was prepped and draped in a sterile manner. The patient was identified and a timeout was performed. A longitudinal neck incision was then made coursing along the medial border of the sternocleidomastoid muscle. The incision was taken down through the platysmal layer. The facial vein was identified, ligated, and divided. The common carotid artery was then seen. It was dissected free down to the omohyoid muscle. The dissection was carried upward until the external carotid artery and superior thyroid artery was seen. The superior thyroid artery was slung with a 2-0 silk suture. The external carotid was slung with a red rubber vessel loop. Next the dissection was carried up along the internal carotid artery. This was carried upward to beyond the area of narrowing. The hypoglossal nerve was seen and preserved. The patient was heparinized. After adequate heparinization was accomplished, the internal, external, and common carotid arteries were clamped. A longitudinal arteriotomy was started on the common carotid artery and extended upward along the internal carotid artery to a point beyond the area of narrowing. There was calcified plaque of the internal carotid artery origin causing approximately >90% narrowing. An internal Sundt shunt was then placed in the internal, followed by the common carotid artery and held in place with Terry clamps. There was good back bleeding seen from the internal carotid artery. The endarterectomy was then started in the appropriate plane on the common carotid artery. This was carried upward and the external carotid was everted and endarterectomized. The endarterectomy was then carried up along the internal carotid artery till a nice feathering breakoff point was accomplished beyond the end of the plaque. The endarterectomy was then carried down further on the common carotid artery. At end of the arteriotomy, the plaque was then transected. Under loop magnification, all loose debris and flaps werer removed. A small flap was seen at the end of the endarterectomy site and this was tacked down using two 6-0 Prolene sutures. At this point, we were informed by Anesthesia that the patient had become asystolic, and chest compressions were began immediately. Chest compressions were performed for approximately 30 to 40 seconds, and return of spontaneous circulation (ROSC) was achieved. At this point our attention was turned towards closure of the arteriotomy using a bovine patch with 6-0 prolene suture. This was done in the usual vascular fashion. Prior to completing the closure, the Sundt shunt was removed and the internal and common carotid arteries were reclamped. Backbleeding and forward bleeding was allowed to occur. The flow surface was irrigated with heparinized saline. The final few sutures were then placed and securely tied. Clamps were then removed off the external and common carotid arteries. The clamp was then removed the internal carotid artery. Good distal flow was seen. Our attention was turned toward adequate hemostasis. The wound was inspected and adequate hemostasis was obtained. The wound was irrigated with antibiotic solution. It was then closed with a running 3-0 Vicryl suture for the platysmal layer and a blayne for the skin edges. The patient left the operating room in satisfactory condition. The patient left the operation room in satisfactory condition and tolerated the procedure well. All needle and sponge counts were correct at the end of the procedure. Mony Shahid Pac assisted due to lack of resident availability and was necessary for positioning, draping, retraction, wound closure deep layers, subcutaneous tissue, and skin closure and was necessary for assisting with the case. Dr. Baker was present and scrubbed for the entire procedure. I attest to the content of the Intraoperative Record and any orders documented therein. Any exceptions are noted below.
[2021-05-04] MEDS ORDERED: METOPROLOL TARTRATE 1 MG/ML VIAL IV ONE ×3 (12:00→13:45)
--- NOTE | 2021-05-04 12:11 | Post Operative Brief Note ---
Immediate Post Op Note v1 Date of Surgery May 04, 2021 Pre & Post Diagnosis Operation Date: 05/02/21 08:00 <No data on this case meets the specified criteria> Operation Date: 05/04/21 07:30 Pre-Op Diagnosis: Right Carotid Artery Stenosis Post-Op Diagnosis: Right Carotid Artery Stenosis I identified the patient and participated in the time-out.: Yes Procedure Operation Date: 05/02/21 08:00 <No data on this case meets the specified criteria> Operation Date: 05/04/21 07:30 Actual Procedures p Right Carotid Endarterectomy(Right) - Cash Baker MD Surgeon Cash Baker MD [employer] 9 Th[employer] 12 Teacher Kota Jarquin MD, Mony Shahid PA-C Estimated Blood Loss 300 Findings Consistent with Post-Op Diagnosis Anesthesia Type General Complications intraop cardiac arrest Disposition Accompanied Patient To Recovery: No Disposition: Surgical ICU
[2021-05-04] MEDS: LACTATED RINGER'S 1,000 ML IV SCH ×2 (13:00→23:15)
--- NOTE | 2021-05-04 13:04 | Anesthesiology Progress Note ---
Date of Service May 04, 2021 Anesthesia Post Procedure Vital Signs Vital Signs: Temp Pulse Pulse Resp BP BP Pulse Ox 05/04/21 12:40 36.6 C 105 H 20 147/54 H 96 05/04/21 12:35 36.6 C 104 H 20 128/51 L 96 05/04/21 12:20 36.6 C 107 H 18 128/50 L 96 05/04/21 07:00 81 05/04/21 06:30 148/63 H 05/04/21 06:00 62 15 94 05/04/21 05:30 72 14 131/65 95 05/04/21 05:00 70 19 94 05/04/21 04:30 73 20 93 05/04/21 04:00 36.9 C 79 19 151/56 H 93 05/04/21 03:30 77 19 137/59 L 93 05/04/21 03:00 67 17 93 05/04/21 02:30 72 20 139/60 94 05/04/21 02:00 65 16 93 05/04/21 01:30 70 16 140/65 93 05/04/21 01:00 76 19 93 05/04/21 00:30 78 20 128/64 95 05/04/21 00:00 37 C 74 17 122/59 L 92 05/03/21 23:30 75 22 94 05/03/21 23:00 76 16 121/62 94 05/03/21 22:30 73 20 93 05/03/21 22:00 79 21 127/64 92 05/03/21 21:30 85 22 99 05/03/21 21:00 74 18 120/65 92 05/03/21 20:30 69 20 95 05/03/21 20:00 36.5 C 70 20 150/74 H 94 05/03/21 19:30 74 18 93 05/03/21 19:00 75 19 135/73 94 Transfer of Care Handoff Completed per policy Notes Mental Status: alert / awake / arousable and participated in evaluation Patient Amnestic to Procedure: Yes Nausea / Vomiting: adequately controlled Pain: adequately controlled Airway Patency, RR, SpO2: stable & adequate BP & HR: stable & adequate Hydration State: stable & adequate Anesthetic Complications: no major complications apparent
--- NOTE | 2021-05-04 13:15 | XRay Report ---
XR chest 1V portable HISTORY: 65 years-old Female post chest compressions acute cardiac arrest COMPARISON: Chest radiograph 03/30/2021 TECHNIQUE: Portable AP view of the chest FINDINGS: Surgical blayne of the right neck. Cardiomediastinal and hilar silhouettes are within normal limits. No pneumothorax, pleural effusion, airspace consolidation or overt pulmonary edema. The bones of the chest appear grossly intact. IMPRESSION: No acute process. ACT 112: Negative or not required by law. The above report was generated using voice recognition software. It may contain grammatical, syntax o r spelling errors. Electronically signed by: Earle Rankin M.D. 05/04/2021 1:13 PM
[2021-05-04] MEDS ORDERED: hydrALAZINE HCL 20 MG/ML VIAL ONE (13:17)
[2021-05-04] MEDS ORDERED: hydrALAZINE HCL 20 MG/ML VIAL IV STA (13:17)
[2021-05-04 13:31] LABS: Basophils # (auto) 0.03 K/uL (0-0.2); Basophils % (auto) 0.2 %; Hematocrit (blood only) 36.2 % (37-47); Hemoglobin 11.9 g/dL (12.0-16.0); Immature Granulocytes # (auto) 0.03 K/uL (0.00-0.02); Immature Granulocytes % (auto) 0.2 %; Lymphocytes % (auto) 3.7 %; Mean Corpuscular Hemoglobin 33.7 pg (25-34); Mean Corpuscular Hgb Conc 32.9 g/dL (32-36); Mean Corpuscular Volume 102.5 fL (80-100); Mean Platelet Volume 8.3 fL (7.4-10.4); Monocytes # (auto) 0.33 K/uL (0.11-0.59); Monocytes % (auto) 2.5 %; Neutrophils # (auto) 12.49 K/uL (1.4-6.5); Neutrophils % (auto) 93.4 %; Platelet Count 290 K/uL (130-400); RDW Standard Deviation 52.7 fL (36.4-46.3); Red Blood Count 3.53 M/uL (4.2-5.4); White Blood Count 13.38 K/uL (4.8-10.8)
[2021-05-04 14:07] LABS: BUN Creatinine Ratio 30.9 (10-20); Blood Urea Nitrogen 34 mg/dl (7-18); Calcium 8.9 mg/dl (8.5-10.1); Carbon Dioxide 24 mmol/L (21-32); Chloride 107 mmol/L (98-107); Creatinine Clr Calc Pharmacy 36.6 ml/min; Est GFR (African American) 61.2 ml/min; Est GFR (Non-African American) 52.8 ml/min; Glucose 185 mg/dl (70-99); Potassium 4.6 mmol/L (3.5-5.1); Sodium 135 mmol/L (136-145); Troponin I < 0.015 ng/ml (0-0.045)
[2021-05-04] MEDS: CLOPIDOGREL BISULFATE 75 MG TAB PO SCH (14:09)
[2021-05-04] MEDS: FOLIC ACID 1 MG in SYRINGE 9.8 ML IV SCH (14:30)
[2021-05-04] MEDS: THIAMINE HCL 100 MG in SYRINGE 9 ML IV SCH (14:30)
--- NOTE | 2021-05-04 15:07 | Hospitalist Progress Note ---
Date of Service May 04, 2021 Assessment & Plan (1) Hypertensive urgency: Blood pressure is stable on amlodipine 10mg daily, Coreg 12.5mg BID and lisinopril 40mg daily BP actually low normal, will watch in ICU, likely good for PCU tomorrow, defer to vascular surgery (2) Renal artery stenosis: Cr is 1.1, BP is low normal after surgery (3) PAD (peripheral artery disease): Patient is on aspirin and Plavix, continue this per vascular (4) Carotid artery disease: Right CEA done today, 05/04 no acute issues, no focal neurological deficits Admission and Anticipated Discharge Date Admission Date: May 02, 2021 Subjective patient tolerated right CEA today, no complications post op she is breathing well, no chest pain she has some pain in right neck from surgery she can move all her extremities, speaking clearly labs were stable this morning, BP is low normal after surgery Review of Systems Review of Systems: All systems reviewed & are unremarkable except as noted in Subjective Physical Exam Constitutional: WD/WN, vitals as above Neck: trachea midline, no thyromegaly (right CEA incision, dressing intact) Respiratory: normal respiratory effort, lungs clear to auscultation Cardiovascular: RRR, no murmur, no edema Gastrointestinal (Abdomen): normal bowel sounds, soft, nontender, no hepatosplenomegaly Musculoskeletal: no cyanosis or clubbing, extremities motor strength 5/5 Skin: no rashes, warm and dry Neurologic: patellar DTR's 2+ bilat, sensation intact and PERRL, EOMI, a ccommodation nl, no face palsy, no dysarthria Psychiatric: A+Ox3, euthymic affect Results & Data Results & Data ([facility] [place]) Vital Signs (Past 12 Hours) Vital Signs Temp Pulse Pulse Resp BP BP Pulse Ox 05/04/21 14:07 91 H 17 124/62 97 05/04/21 13:37 93 H 21 114/66 98 05/04/21 13:24 110 H 151/59 H 05/04/21 13:22 110 H 25 H 147/73 H 91 05/04/21 12:52 104 H 18 102/55 L 98 05/04/21 12:40 36.6 C 105 H 20 147/54 H 96 05/04/21 12:35 36.6 C 104 H 20 128/51 L 96 05/04/21 12:20 36.6 C 107 H 18 128/50 L 96 05/04/21 07:00 81 05/04/21 06:30 148/63 H 05/04/21 06:00 62 15 94 05/04/21 05:30 72 14 131/65 95 05/04/21 05:00 70 19 94 05/04/21 04:30 73 20 93 05/04/21 04:00 36.9 C 79 19 151/56 H 93 05/04/21 03:30 77 19 137/59 L 93 Laboratory Results Laboratory Results - last 24 hr 05/03/21 05/04/21 05/04/21 16:45 13:20 13:20 WBC 13.38 H RBC 3.53 L Hgb 11.9 L Hct 36.2 L MCV 102.5 H MCH 33.7 MCHC 32.9 RDW Std Deviation 52.7 H RDW Coeff of Odette 14.0 Plt Count 290 MPV 8.3 Immature Gran % (Auto) 0.2 Neut % (Auto) 93.4 Lymph % (Auto) 3.7 Hamlin % (Auto) 2.5 Eos % (Auto) 0.0 Baso % (Auto) 0.2 Neut # (Auto) 12.49 H Lymph # (Auto) 0.50 L Hamlin # (Auto) 0.33 Eos # (Auto) 0.00 Baso # (Auto) 0.03 Immature Gran # (Auto) 0.03 H Sodium 135 L Potassium 4.6 Chloride 107 Carbon Dioxide 24 Anion Gap 4.0 BUN 34 H Creatinine 1.11 Est Cr Clr Drug Dosing 36.6 Est GFR ( Amer) 61.2 Est GFR (Non-Af Amer) 52.8 BUN/Creatinine Ratio 30.9 H Glucose 185 H Calcium 8.9 Troponin I < 0.015 Nasal Screen MRSA (PCR) Negative Medications Administered Current Inpatient Medications Acetaminophen (Acetaminophen 500 Mg Tab) 500 - 1,000 mg PO Q6H PRN; Protocol PRN Reason: Pain Stop: 06/01/21 10:25 Amlodipine Besylate (Amlodipine Besylate 5 Mg Tab) 10 mg PO QAM ALICIA Stop: 06/03/21 08:59 Aspirin (Aspirin 81 Mg Ectab) 81 mg PO QA ALICIA Stop: 06/01/21 10:59 Last Admin: 05/03/21 09:06 Dose: 81 mg Documented by: Atorvastatin Calcium (Atorvastatin 40 Mg Tab) 40 mg PO QAM [facility] Stop: 06/01/21 10:59 Last Admin: 05/03/21 09:06 Dose: 40 mg Documented by: Atropine Sulfate (Atropine Sulfate 0.1 Mg/Ml 10ml Syr) 0.5 mg IV Q1M PRN PRN Reason: PACU Use-HR<40 &/or Bradycardi Stop: 05/04/21 16:57 Atropine Sulfate (Atropine Sulfate 0.1 Mg/Ml 10ml Syr) 0.5 mg IV Q1M PRN PRN Reason: PACU Use-HR<40 &/or Bradycardi Stop: 05/04/21 21:02 Carvedilol (Carvedilol 12.5 Mg Tab) 12.5 mg PO BID [facility] Stop: 06/01/21 10:59 Last Admin: 05/03/21 20:12 Dose: 12.5 mg Documented by: Collagenase (Collagenase Oint 30 Gm Tube) 1 appln [facility] Stop: 06/01/21 10:59 Last Admin: 05/03/21 09:07 Dose: 1 appln Documented by: Ephedrine Sulfate (Ephedrine Sulfate 50 Mg/Ml Amp) 5 mg IV Q5M PRN PRN Reason: PACU Use Only-SBP<90 mmHg Stop: 05/04/21 16:57 Ephedrine Sulfate (Ephedrine Sulfate 50 Mg/Ml Amp) 5 mg IV Q5M PRN PRN Reason: PACU Use Only-SBP<90 mmHg Stop: 05/04/21 21:02 Fentanyl Citrate (Fentanyl Citrate 100 Mcg/2 Ml Vial) 25 mcg IV Q5M PRN PRN Reason: PACU Use Only-Pain Stop: 05/04/21 16:57 Fentanyl Citrate (Fentanyl Citrate 100 Mcg/2 Ml Vial) 25 mcg IV Q5M PRN PRN Reason: PACU Use Only-Pain Stop: 05/04/21 21:02 Flumazenil (Flumazenil 0.1 Mg/1 Ml 10 Ml Vial) 0.2 mg IV Q2M PRN PRN Reason: PACU Use Only-Benzo Reversal Stop: 05/04/21 16:57 Flumazenil (Flumazenil 0.1 Mg/1 Ml 10 Ml Vial) 0.2 mg IV Q2M PRN PRN Reason: PACU Use Only-Benzo Reversal Stop: 05/04/21 21:03 Guaifenesin (Guaifenesin 600 Mg Tabcr) 1,200 mg PO Q12 [facility] Stop: 06/02/21 20:59 Last Admin: 05/03/21 20:13 Dose: 1,200 mg Documented by: Thiamine HCl 100 mg/ Syringe 10 mls @ 2 mls/min IV QAM [facility] Stop: 06/03/21 08:59 Last Admin: 05/04/21 14:30 Dose: 2 mls/min Documented by: Folic Acid 1 mg/ Syringe 10 mls @ 5 mls/min IV QAM [facility] Stop: 06/03/21 08:59 Last Admin: 05/04/21 14:30 Dose: 5 mls/min Documented by: Promethazine HCl 12.5 mg/ (Sodium Chloride) 50.5 mls @ 204 mls/hr IV ONCE PRN PRN Reason: PACU Use Only-Nausea/Vomiting Stop: 05/04/21 16:57 Cefazolin Sodium (Ancef 1000mg) 1,000 mg in 7.5 mls @ 2.5 mls/min IV Q8H ALICIA; Protocol Stop: 05/05/21 00:02 Lactated Ringer's (Lr) 1,000 mls @ 125 mls/hr IV .Q8H ALICIA Stop: 06/03/21 12:48 Last Admin: 05/04/21 13:00 Dose: 125 mls/hr Documented by: Promethazine HCl 12.5 mg/ (Sodium Chloride) 50.5 mls @ 204 mls/hr IV ONCE PRN PRN Reason: PACU Use Only-Nausea/Vomiting Stop: 05/04/21 21:03 Labetalol HCl (Labetalol Hcl Iv 5 Mg/Ml 20ml) 5 mg IV Q5M PRN PRN Reason: PACU Use-SBP>160 or DBP>100 Stop: 05/04/21 16:57 Labetalol HCl (Labetalol Hcl Iv 5 Mg/Ml 20ml) 5 mg IV Q5M PRN PRN Reason: PACU Use-SBP>160 or DBP>100 Stop: 05/04/21 21:03 Lisinopril (Lisinopril 40 Mg Tab) 40 mg PO QAM [facility] Stop: 06/01/21 10:59 Last Admin: 05/03/21 09:02 Dose: 40 mg Documented by: Metoprolol Tartrate (Metoprolol Tartrate 1 Mg/Ml Vial) 2.5 mg IV Q6 [facility] Stop: 06/03/21 17:59 Morphine Sulfate (Morphine Sulfate 4 Mg/Ml 1 Ml Carp\Vial) 1 - 4 mg IV Q2H PRN PRN Reason: Severe Pain Stop: 05/18/21 12:48 Multivitamins/Minerals (Cerovite Adv Formula Tab) 1 tab PO QAM [facility] Stop: 06/01/21 10:59 Last Admin: 05/03/21 09:06 Dose: 1 tab Documented by: Naloxone HCl (Naloxone Hcl 0.4 Mg/1 Ml Vial/Carp) 0.2 mg IV Q2M PRN PRN Reason: PACU Use Only-Opiate Reversal Stop: 05/04/21 16:57 Naloxone HCl (Naloxone Hcl 0.4 Mg/1 Ml Vial/Carp) 0.2 mg IV Q2M PRN PRN Reason: PACU Use Only-Opiate Reversal Stop: 05/04/21 21:03 Ondansetron HCl (Ondansetron Inj 2 Mg/Ml 2 Ml Vial) 4 mg IV ONCE PRN PRN Reason: PACU Use Only-Nausea/Vomiting Stop: 05/04/21 16:57 Ondansetron HCl (Ondansetron Inj 2 Mg/Ml 2 Ml Vial) 4 mg IV ONCE PRN PRN Reason: PACU Use Only-Nausea/Vomiting Stop: 05/04/21 21:03 Oxycodone/Acetaminophen (Oxycodone/Acetaminophen 5mg/325mg Tab) 1 - 2 tab PO Q4H PRN PRN Reason: Moderate Pain Stop: 05/18/21 12:48 Pantoprazole Sodium (Pantoprazole 40 Mg Tab) 40 mg PO BID [facility] Stop: 06/01/21 10:59 Last Admin: 05/03/21 20:13 Dose: 40 mg Documented by: PG Care Time/CCT Total # of Minutes Spent Total Time Spent with Patient: Total time spent is greater than 50% in coordination of care (as documented) at patient's floor/unit and/or counseling patient: Coding Level of Care Code 95681 Subseq Hosp Care Lvl 2 Diagnoses Hypertensive urgency I16.0 Renal artery stenosis I70.1 PAD (peripheral artery disease) I73.9 Carotid artery disease I65.23 Carotid artery disease type: stenosis Laterality: bilateral (1) Carotid artery disease Carotid artery disease type: stenosis Laterality: bilateral Qualified Code(s): I65.23 - Occlusion and stenosis of bilateral carotid arteries
[2021-05-04] MEDS ORDERED: SODIUM CHLORIDE 0.9% 500 ML IV ONE (16:00)
--- NOTE | 2021-05-04 16:12 | Critical Care Progress Note ---
Date of Service May 04, 2021 Assessment & Plan (1) Hypertensive urgency: --Hypertensive urgency Patient responding to p.o. medication as well as IV fluids Keep the systolic blood pressure around 160 IV hydralazine on an as-needed basis --COPD with emphysema and chronic bronchitis Inhalers at home Recommend follow-up with tag machine operator as an outpatient Continue with guaifenesin and flutter valve --Preop for carotid endarterectomy on the right side --Peripheral vascular disease Continue statin and Plavix --Prophylaxis VTE: IPC GI: None Lines: Right radial, peripheral Diet: N.p.o. Plan: In/out: -811, urine output 1051 Patient going for CEA today Please note the above document was generated using voice recognition software. It may contain grammatical, syntax or spelling errors.Any formal questions or concerns about the content, text or information contained within the body of this dictation should be directly addressed to the provider for clarification. (2) Right foot ulcer: (3) Tobacco abuse: (4) Gastric perforation: (5) Pulmonary edema: (6) Alcohol use: (7) Left renal mass: (8) COPD with emphysema: Admission and Anticipated Discharge Date Admission Date: May 02, 2021 Subjective Patient seen and examined at bedside. No acute distress, no adverse events overnight. Denies any chest pain, no headache, no dizziness No abdominal pain. Does complain of cough. Nonproductive. Patient did get a total of 15 mg of hydralazine, 5 mg each overnight for her blood pressure Review of Systems Review of Systems: All systems reviewed & are unremarkable except as noted in Subjective Physical Exam Physical Exam: HEENT: EOMI, PERRLA Respiratory system: Decreased air entry bilaterally, no crackles, positive rhonchi more on the right side, mild expiratory wheeze CVS: S1-S2 positive, no murmurs or gallops Abdomen: Soft, nontender, nondistended, positive bowel sounds x4 Extremities: +2 pulses bilaterally radialis/ dorsalis pedis, no cyanosis, no edema Neuro: Awake alert oriented x3 Psych: Normal mood and affect G/U: No King Skin: no rashes, warm and dry Lymphatic: no cervical or axillary lymphadenopathy Results & Data Results & Data ([facility]) Vital Signs (Past 12 Hours) Vital Signs Temp Pulse Pulse Resp BP BP Pulse Ox 05/04/21 16:02 78 18 115/60 95 05/04/21 15:52 78 18 125/62 93 05/04/21 15:37 78 22 116/53 L 95 05/04/21 15:22 76 15 97/49 L 95 05/04/21 14:52 79 13 114/68 94 05/04/21 14:36 96 H 18 83/48 L 98 05/04/21 14:22 92 H 17 144/76 H 99 05/04/21 14:07 91 H 17 124/62 97 05/04/21 13:37 93 H 21 114/66 98 05/04/21 13:24 110 H 151/59 H 05/04/21 13:22 110 H 25 H 147/73 H 91 05/04/21 12:52 104 H 18 102/55 L 98 05/04/21 12:40 36.6 C 105 H 20 147/54 H 96 05/04/21 12:35 36.6 C 104 H 20 128/51 L 96 05/04/21 12:20 36.6 C 107 H 18 128/50 L 96 05/04/21 07:00 81 05/04/21 06:30 148/63 H 05/04/21 06:00 62 15 94 05/04/21 05:30 72 14 131/65 95 05/04/21 05:00 70 19 94 05/04/21 04:30 73 20 93 05/04/21 13:20 05/04/21 13:20 Coding Level of Care Code 70994 Subseq Hosp Care Lvl 3 Diagnoses Hypertensive urgency I16.0 Right foot ulcer L97.519 Non-pressure ulcer stage: unspecified non-pressure ulcer stage Tobacco abuse Z72.0 Gastric perforation K25.5 Pulmonary edema J81.1 Alcohol use Z72.89 Left renal mass N28.89 COPD with emphysema J43.9 Emphysema type: unspecified (1) COPD with emphysema Emphysema type: unspecified Qualified Code(s): J43.9 - Emphysema, unspecified (2) Right foot ulcer Non-pressure ulcer stage: unspecified non-pressure ulcer stage Qualified Code(s): L97.519 - Non-pressure chronic ulcer of other part of right foot with unspecified severity
[2021-05-04] MEDS: ATORVASTATIN 40 MG TAB PO SCH (16:14)
[2021-05-04] MEDS: carvediloL 12.5 MG TAB PO SCH (16:14)
[2021-05-04] MEDS: COLLAGENASE OINT 30 GM TUBE TOP SCH (16:14)
[2021-05-04] MEDS: lisinopril 40 MG TAB PO SCH (16:14)
[2021-05-04] MEDS: guaiFENesin 600 MG TABCR PO SCH ×2 (16:14→19:57)
[2021-05-04] MEDS: ASPIRIN 81 MG ECTAB PO SCH (16:14)
[2021-05-04] MEDS: amLODIPine BESYLATE 5 MG TAB PO SCH (16:14)
[2021-05-04] MEDS: PANTOprazole 40 MG TAB PO SCH ×2 (16:15→19:57)
[2021-05-04] MEDS: CEROVITE ADV FORMULA TAB PO SCH (16:15)
[2021-05-04] MEDS ORDERED: METOPROLOL TARTRATE 1 MG/ML VIAL IV PRN (16:20)
--- NOTE | 2021-05-04 16:20 | Communication Note ---
Date of Service: May 04, 2021 Critical CARE addendum: Patient is s/p OR for carotid endarterectomy Patient had brief cardiac arrest during the procedure which lasted for 40 seconds ROSC was achieved. Patient was given 2.5 of metoprolol IV push prior to coming to the ICU and had transient low blood pressure at that time in the systolic 90s In the ICU Patient was again started to have high blood pressure going in systolic 190s. With brief episodes of confusion. Patient was given 2.5 Lopressor which improved her blood pressure. Blood pressure is found to be very labile. Whenever the patient sits up the systolic blood pressure goes into the 90s. Patient has not gotten any blood pressure medication by mouth. Nurse called me to evaluate the patient as patient was started to have some facial droop. At the time of physical examination Patient had right facial droop, tongue was deviated little bit to the right, ptosis mild of the right eye as well as slurred speech. Patient also had some oozing from the right incision site proximal to the jawline Neurologically strength 4 out of 5 right upper extremity, 5 out of 5 rest of the extremities Patient systolic blood pressure was in the 120s. I am going to give bolus find an MRI for the patient. Do not treat the blood pressure of the patient if it goes greater than 185 systolic Patient has very labile blood pressure unfortunately. If the blood pressure stays low even after giving a bolus we will give her some vasopressor support. CT head without contrast will be ordered. Keep the patient n.p.o. Dr. Baker has been notified. I have personally spent 35 minutes of critical care time in the direct management of this patient. This is a life/limb threatening event. This includes time spent evaluating patient, direct bedside care, chart review, placing orders, interpretation of diagnostic studies, discussion with consultants, patient, and family members, as well as other required patient management activities. This time is exclusive of all separately billable procedures, and teaching time and separate from and in addition to any other critical care service time. Please note the above document was generated using voice recognition software. It may contain grammatical, syntax or spelling errors. Coding Level of Care Code Critical Care 1st 30-74 mins Time Spent (min) 40
[2021-05-04] MEDS ORDERED: SODIUM CHLORIDE 0.9% 1000ML 500 ML IV ONE (17:19)
[2021-05-04] MEDS: ceFAZolin 1000MG 1,000 MG/7.5 ML SYR IV SCH ×2 (17:24→23:15)
--- NOTE | 2021-05-04 17:25 | CT Scan Report ---
HEAD CT NONCONTRAST CT DOSE: 614.27 mGy.cm HISTORY: Facial droop with slurred speech, rule out stroke TECHNIQUE: Multiaxial CT images of the head were performed without the use of intravenous contrast. A utomated exposure control was utilized for this study. A dose lowering technique was utilized adheri ng to the principles of ALARA. Comparison: Head CT 03/30/2021. Brain MRI 03/30/2021. Findings: The paranasal sinuses and mastoid air cells are clear. There is a 2 cm hypodense focus with in the left basal ganglia. This is consistent with a subacute infarct. This is new from the prior clarita dy. There is no mass, hematoma, or midline shift. The ventricles are normal in size. Impression: Interval development of a 2 cm hypodense focus within the left basal ganglia. This is consistent with a subacute infarct. ACT 112: Negative or not required by law. Electronically signed by: Jorge A Olivia M.D. 05/04/2021 5:24 PM
[2021-05-04] MEDS ORDERED: METOPROLOL TARTRATE 1 MG/ML VIAL IV SCH (18:00)
[2021-05-04] MEDS: MoRPHine SULFATE 4 MG/ML 1 ML CARP\\VIAL IV PRN ×2 (18:27→23:31)
[2021-05-04 18:53] LABS: Hematocrit (blood only) 33.2 % (37-47)
--- NOTE | 2021-05-04 19:55 | Cardiology Consultation ---
Date of Consultation May 04, 2021 Assessment & Plan (1) Asystole: (2) Stroke: (3) Tobacco abuse: (4) Hypertension: ASSESSMENT/PLAN: 1. Asystole: Underwent chest compressions in the OR for approximately 30-40 seconds per report for asystole. No rhythm strip available. Had asystolic e vents up to 4 seconds in March of 2021 and was evaluated by electrophysiology at that time. Based on available evidence at that time, it was felt that these events were vagally mediated. Today's event occurred intraop for carotid endarterectomy, and may have once again been due to vagal process. Continue telemetry to monitor for further rhythm issues. Given the more extreme nature of today's event requiring CPR, will discuss with electrophysiology tomorrow. Fortunately, she has no history of syncope. No urgent indication for pacemaker at this time. Consider pacemaker if electrophysiology agreeable given severity of today's event verses loop recorder to evaluate for future events. 2. Stroke: Notified nursing staff of left-sided facial droop and slurred speech to see if this was her baseline. Apparently this was a change and they immediately notified the critical care attending, Dr. Inman. Management as per critical care team. 3. Tobacco abuse: Recommended that she stop smoking and also avoid alcohol given alcohol dependence. 4. Hypertension: Blood pressure has been labile while in the ICU and apparently also positional. This is being managed by the critical care team to help support cerebral perfusion. Her oral antihypertensive agents are being held. 5. Disposition: Will discussed with electrophysiology as above. Please call with any other questions or concerns. Her was contacted via telephone to update her of her cardiac issues. Thank you for allowing me to participate in the care of your patient. Please call for any other questions or concerns. Sincerely, Dougie Lobo M.D. History of Present Illness Reason for Consultation: Intraoperative cardiac arrest Requesting Physician: Cash Baker MD Attending Physician: Cash Baker MD History of Present Illness Ms. Bellamy is a pleasant 65-year-old female with history significant for peripheral arterial disease s/p angioplasty (Dr. Dias), renal artery stenosis, AAA, nonsustained VT, hypertension, carotid artery stenosis, COPD, and duodenal ulcer s/p surgical repair. She was admitted on 05/02/2021 for hypertensive urgency. She had presented for right carotid endarterectomy but she was significantly hypertensive. She was therefore admitted and underwent carotid endarterectomy earlier today. Intraoperatively, she reportedly had ventricular asystole and underwent chest compressions for 30-40 seconds, at which point sinus rhythm apparently recurred. She was seen by triple drum operator, Dr. Ceballos on 04/14/2021. She was evaluated at that time for ventricular asystole up to 4 seconds in duration. She reportedly had 3 episodes occurring several minutes apart in the family readiness support assistant hours. There was evidence of sinus node slowing leading up to these episodes. It was thought that perhaps these events for vagally mediated. She had not had any syncope but did have dizziness and presyncope in the setting of severe right carotid artery stenosis and hypertension. She denies chest pain, shortness of breath, syncope, near-syncope, palpitations while in her ICU room. During our discussion, her speech was slow and appeared slurred. There also appeared to be very mild left-sided facial droop. Nursing staff was immediately notified as it was not clear if this was a new development. Nursing staff quickly evaluated and notified the critical care attending. Her blood pressure during this visit was normal but apparently she has been having issues with hypertension and with repositioning such as sitting upright, she would developed hypotension. Her was contacted via telephone after the visit and states that she had been having issues where she was unable to move her right arm and also had spatial issues, finding it difficult at times to light her cigarette leading up to her carotid endarterectomy. Review of systems: As above. Review of systems otherwise negative/unremarkable. Family history: No known premature CAD. Social history: She has smoked 1 pack per day for approximately 30 years. She reports consuming approximately 3 beers per day. She lives at home with her . She has 2 sons. There was no family at the bedside during today's visit. Allergies Allergy/AdvReac Type Severity Reaction Status Date / Time No Known Allergies Allergy Mild Verified 05/02/21 06:42 Home Medications Medication Instructions Recorded Confirmed Type aspirin 81 mg PO QAM #90 tab 04/01/21 05/02/21 Rx clopidogrel 75 mg PO QAM #30 tab 04/01/21 05/02/21 Rx Santyl 1 applic TOPICAL QAM 04/08/21 05/02/21 History [id number] 1 tab PO QAM 04/08/21 05/02/21 History pantoprazole 40 mg tablet,delayed 40 mg PO BID #60 tab 04/11/21 05/02/21 Rx release carvedilol 12.5 mg PO BID #60 tab 04/16/21 05/02/21 Rx lisinopril 40 mg tablet 40 mg PO QAM #90 tab 04/25/21 05/02/21 Rx acetaminophen [Tylenol Extra 500 - 1,000 mg PO Q6H PRN 04/28/21 05/02/21 History Strength] atorvastatin 40 mg PO QAM 04/28/21 05/02/21 History Patient History Medical History AAA (abdominal aortic aneurysm) 16mm x 7mm sacular aneurysm of infrarenal abdominal aorta per 01/22/21 CT scan Alcohol use 3-4 beers daily per nursing assessment Alcohol abuse per records Carotid artery disease COPD with emphysema Per records Dizziness Recently admitted 03/30/21-04/01/21 Possibly related to HTN GERD (gastroesophageal reflux disease) UNDER CONTROL Hypertension Ischemic ulcer of right foot Follows with [facility]ound [facility] Left renal mass Left side- per 04/15/21 MRI= 1.6 x 1.0 cm or slightly exophytic focus within the lateral aspect of the left kidney.- worrisome for RCC per records- pt will follow up as outpatient PAD (peripheral artery disease) S/p stent to right LE February 2021 with [facility] Bilateral iliac artery stenosis Renal artery stenosis Per CT scan 12/[address] Baker Surgical History H/O exploratory laparotomy (01/22/21) Exploratory laparotomy, oversew perforated duodenal ulcer, abdominal washout. Dr. Craig 01/22/2021 H/O tubal ligation H/O vascular surgery 2 stents to right leg [facility] February 2021 History of colonoscopy [place] teeth extracted Family History Mother Diabetes Lung cancer Hypertension Father Lung cancer PAD (peripheral artery disease) Denies family history of Ovarian cancer Prostate cancer Myocardial infarction Breast cancer Colorectal cancer Social History Smoking Status: Current every day smoker Tobacco Type: Cigarettes Age Started Using Tobacco: 27; packs per day: 1; Cigarettes Per Day: 1 ppd; Second Hand Exposure: No; Do You Dip or Chew Tobacco: No; Hx Alcohol Use: Yes Alcohol type: beer Alcohol Intake Frequency: 4 or More x per/Week Alcohol Intake Frequency Comment: 2-3 beers daily or more Hx Substance Use: No Preferred Language: Turkmen Communication Ability: Effective Visual Impairment: Limited Hearing Ability: Normal Set Key Driver Required: No Beliefs That Will Affect Care: None marital status: Current Living Situation: Spouse current occupational status: employed 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 Alert. Slow and slurred speech. HEENT: Anicteric sclera. Mild left facial droop. Neck: Surgical dressing right neck following carotid endarterectomy. Cardiac: PMI was nondisplaced. No ventricular heave. Regular. Normal S1-S2. No murmurs, rubs, or gallops. Pulmonary: Clear to auscultation bilaterally without wheezes, rales, or rhonchi. Abdomen: Soft, nontender, nondistended, with normoactive bowel sounds. No bruits noted. Extremities: 2+ radial pulses bilaterally. 2+ posterior tibialis pulses bilaterally. No edema or cyanosis. Psychiatric: Affect appears appropriate. Results & Data ([facility]) Vital Signs (Past 12 Hours) Vital Signs Temp Pulse Pulse Resp BP BP Pulse Ox 05/04/21 17:32 73 17 139/63 97 05/04/21 16:37 78 13 146/64 H 96 05/04/21 16:22 79 13 140/65 97 05/04/21 16:02 78 18 115/60 95 05/04/21 15:52 78 18 125/62 93 05/04/21 15:37 78 22 116/53 L 95 05/04/21 15:22 76 15 97/49 L 95 05/04/21 14:52 79 13 114/68 94 05/04/21 14:36 96 H 18 83/48 L 98 05/04/21 14:22 92 H 17 144/76 H 99 05/04/21 14:07 91 H 17 124/62 97 05/04/21 13:37 93 H 21 114/66 98 05/04/21 13:24 110 H 151/59 H 05/04/21 13:22 110 H 25 H 147/73 H 91 05/04/21 12:52 104 H 18 102/55 L 98 05/04/21 12:40 36.6 C 105 H 20 147/54 H 96 05/04/21 12:35 36.6 C 104 H 20 128/51 L 96 05/04/21 12:20 36.6 C 107 H 18 128/50 L 96 Laboratory Results Laboratory Results - last 24 hr 05/03/21 05/04/21 05/04/21 16:45 13:20 13:20 WBC 13.38 H RBC 3.53 L Hgb 11.9 L Hct 36.2 L MCV 102.5 H MCH 33.7 MCHC 32.9 RDW Std Deviation 52.7 H RDW Coeff of Odette 14.0 Plt Count 290 MPV 8.3 Immature Gran % (Auto) 0.2 Neut % (Auto) 93.4 Lymph % (Auto) 3.7 [place] % (Auto) 2.5 Eos % (Auto) 0.0 Baso % (Auto) 0.2 Neut # (Auto) 12.49 H Lymph # (Auto) 0.50 L [place] # (Auto) 0.33 Eos # (Auto) 0.00 Baso # (Auto) 0.03 Immature Gran # (Auto) 0.03 H Sodium 135 L Potassium 4.6 Chloride 107 Carbon Dioxide 24 Anion Gap 4.0 BUN 34 H Creatinine 1.11 Est Cr Clr Drug Dosing 36.6 Est GFR ( Amer) 61.2 Est GFR (Non-Af Amer) 52.8 BUN/Creatinine Ratio 30.9 H Glucose 185 H POC Glucose Calcium 8.9 Troponin I < 0.015 Nasal Screen MRSA (PCR) Negative 05/04/21 05/04/21 18:47 18:49 WBC RBC Hgb 11.0 L Hct 33.2 L MCV MCH MCHC RDW Std Deviation RDW Coeff of Odette Plt Count MPV Immature Gran % (Auto) Neut % (Auto) Lymph % (Auto) [place] % (Auto) Eos % (Auto) Baso % (Auto) Neut # (Auto) Lymph # (Auto) [place] # (Auto) Eos # (Auto) Baso # (Auto) Immature Gran # (Auto) Sodium Potassium Chloride Carbon Dioxide Anion Gap BUN Creatinine Est Cr Clr Drug Dosing Est GFR ( Amer) Est GFR (Non-Af Amer) BUN/Creatinine Ratio Glucose POC Glucose 135 H Calcium Troponin I Nasal Screen MRSA (PCR) Diagnostic Findings Telemetry personally reviewed: Sinus rhythm. Unfortunately, there was no rhythm strip of her asystolic event that occurred in the OR. Echo 03/24/2021: Hyperdynamic LV systolic function. EF > 70%. No significant valvular abnormalities reported. Head CT 05/04/2021: Interval development of 2 cm hypodense focus within the left basal ganglia consistent with subacute infarct per Radiology. Chest x-ray 05/04/2021: No acute process per Radiology. CTA neck 03/30/2021: Proximal right ICA > 90% stenosis. Proximal left ICA 60%. ECG personally reviewed: ECG 05/04/2021: Sinus rhythm 75 beats per minute. Nonspecific ST abnormality. Medications Administered Current Inpatient Medications Acetaminophen (Acetaminophen 500 Mg Tab) 500 - 1,000 mg PO Q6H PRN; Protocol PRN Reason: Pain Stop: 06/01/21 10:25 Amlodipine Besylate (Amlodipine Besylate 5 Mg Tab) 10 mg PO QAM [facility] Stop: 06/03/21 08:59 Last Admin: 05/04/21 16:14 Dose: Not Given Documented by: Aspirin (Aspirin 81 Mg Ectab) 81 mg PO QAM [facility] Stop: 06/01/21 10:59 Last Admin: 05/04/21 16:14 Dose: Not Given Documented by: Atorvastatin Calcium (Atorvastatin 40 Mg Tab) 40 mg PO QAM [facility] Stop: 06/01/21 10:59 Last Admin: 05/04/21 16:14 Dose: Not Given Documented by: Carvedilol (Carvedilol 12.5 Mg Tab) 12.5 mg PO BID [facility] Stop: 06/01/21 10:59 Last Admin: 05/04/21 16:14 Dose: Not Given Documented by: Collagenase (Collagenase Oint 30 Gm Tube) 1 appln TOP [facility] Stop: 06/01/21 10:59 Last Admin: 05/04/21 16:14 Dose: Not Given Documented by: Flumazenil (Flumazenil 0.1 Mg/1 Ml 10 Ml Vial) 0.2 mg IV Q2M PRN PRN Reason: PACU Use Only-Benzo Reversal Stop: 05/04/21 21:03 Guaifenesin (Guaifenesin 600 Mg Tabcr) 1,200 mg PO Q12 [facility] Stop: 06/02/21 20:59 Last Admin: 05/04/21 16:14 Dose: Not Given Documented by: Thiamine HCl 100 mg/ Syringe 10 mls @ 2 mls/min IV [facility] Stop: 06/03/21 08:59 Last Admin: 05/04/21 14:30 Dose: 2 mls/min Documented by: Folic Acid 1 mg/ Syringe 10 mls @ 5 mls/min IV [facility] Stop: 06/03/21 08:59 Last Admin: 05/04/21 14:30 Dose: 5 mls/min Documented by: Cefazolin Sodium (Ancef 1000mg) 1,000 mg in 7.5 mls @ 2.5 mls/min IV Q8H [facility]; Protocol Stop: 05/05/21 00:02 Last Admin: 05/04/21 17:24 Dose: 2.5 mls/min Documented by: Lactated Ringer's (Lr) 1,000 mls @ 125 mls/hr IV .Q8H [facility] Stop: 06/03/21 12:48 Last Admin: 05/04/21 13:00 Dose: 125 mls/hr Documented by: Lisinopril (Lisinopril 40 Mg Tab) [facility] [place] Stop: 06/01/21 10:59 Last Admin: 05/04/21 16:14 Dose: Not Given Documented by: Metoprolol Tartrate (Metoprolol Tartrate 1 Mg/Ml Vial) 2.5 mg IV Q6 PRN PRN Reason: Systolic blood pressure greater than 185 Stop: 06/03/21 17:59 Morphine Sulfate (Morphine Sulfate 4 Mg/Ml 1 Ml Carp\Vial) 1 - 4 mg IV Q2H PRN PRN Reason: Severe Pain Stop: 05/18/21 12:48 Last Admin: 05/04/21 18:27 Dose: 2 mg Documented by: Multivitamins/Minerals (Cerovite Adv Formula Tab) 1 tab PO QAM [facility] Stop: 06/01/21 10:59 Last Admin: 05/04/21 16:15 Dose: Not Given Documented by: Oxycodone/Acetaminophen (Oxycodone/Acetaminophen 5mg/325mg Tab) 1 - 2 tab PO Q4H PRN PRN Reason: Moderate Pain Stop: 05/18/21 12:48 Pantoprazole Sodium (Pantoprazole 40 Mg Tab) 40 mg PO BID [facility] Stop: 06/01/21 10:59 Last Admin: 05/04/21 16:15 Dose: Not Given Documented by: PG Care Time/CCT Total # of Minutes Spent Total Time Spent with Patient: Total time spent is greater than 50% in coordination of care (as documented) at patient's floor/unit and/or counseling patient: Coding Level of Care Code 96794 Initial Inpt Care Lvl 3 Diagnoses Asystole I46.9 Stroke I63.9 Tobacco abuse Z72.0 Hypertension I10 Hypertension type: essential hypertension (1) Hypertension Hypertension type: essential hypertension Qualified Code(s): I10 - Essential (primary) hypertension
--- NOTE | 2021-05-04 21:32 | XCELERA ---
[id number] [id number]
[2021-05-05 04:59] LABS: Hematocrit (blood only) 29.5 % (37-47); Hemoglobin 9.8 g/dL (12.0-16.0); Mean Corpuscular Hemoglobin 34.5 pg (25-34); Mean Corpuscular Hgb Conc 33.2 g/dL (32-36); Mean Corpuscular Volume 103.9 fL (80-100); Mean Platelet Volume 8.6 fL (7.4-10.4); Platelet Count 258 K/uL (130-400); RDW Standard Deviation 53.9 fL (36.4-46.3); Red Blood Count 2.84 M/uL (4.2-5.4); White Blood Count 8.13 K/uL (4.8-10.8)
[2021-05-05] MEDS ORDERED: hydrALAZINE HCL 20 MG/ML VIAL IV ONE (04:59)
[2021-05-05 05:26] LABS: Basophils # (auto) 0.02 K/uL (0-0.2); Basophils % (auto) 0.2 %; Eosinophils # (auto) 0.02 K/uL (0-0.5); Eosinophils % (auto) 0.2 %; Immature Granulocytes # (auto) 0.01 K/uL (0.00-0.02); Immature Granulocytes % (auto) 0.1 %; Lymphocytes # (auto) 1.17 K/uL (1.2-3.4); Lymphocytes % (auto) 14.4 %; Monocytes # (auto) 1.21 K/uL (0.11-0.59); Monocytes % (auto) 14.9 %; Neutrophils % (auto) 70.2 %; RBC Morphology Unremarkable
[2021-05-05 05:28] LABS: BUN Creatinine Ratio 46.5 (10-20); Calcium 8.4 mg/dl (8.5-10.1); Creatinine Clr Calc Pharmacy 76.6 ml/min; Est GFR (African American) 117.1 ml/min; Magnesium 1.8 mg/dl (1.8-2.4); Phosphorus 3.9 mg/dl (2.5-4.9); Potassium 4.1 mmol/L (3.5-5.1)
--- NOTE | 2021-05-05 07:07 | Electrocardiogram Report ---
Test Reason : Blood Pressure : / mmHG Vent. Rate : 075 BPM Atrial Rate : 075 BPM P-R Int : 132 ms QRS Dur : 096 ms QT Int : 402 ms P-R-T Axes : 070 068 087 degrees QTc Int : 448 ms Normal sinus rhythm Nonspecific ST abnormality When compared with ECG of 29-MAR-2021 23:41, No significant change was found Confirmed by Aurelio Lobo ([id number]) on 05/05/2021 7:07:23 AM Referred By: Cash Baker Confirmed By:Aurelio Lobo
[2021-05-05] MEDS: FOLIC ACID 1 MG in SYRINGE 9.8 ML IV SCH (08:45)
[2021-05-05] MEDS: THIAMINE HCL 100 MG in SYRINGE 9 ML IV SCH (08:45)
[2021-05-05] MEDS: MAGNESIUM SULFATE / D5W 1 GM/100 ML BAG IV SCH ×2 (08:47→11:11)
[2021-05-05] MEDS: LACTATED RINGER'S 1,000 ML IV SCH (08:52)
[2021-05-05] MEDS: MoRPHine SULFATE 4 MG/ML 1 ML CARP\\VIAL IV PRN (09:08)
--- NOTE | 2021-05-05 09:18 | Critical Care Progress Note ---
Date of Service May 05, 2021 Assessment & Plan (1) Hypertensive urgency: Reason critically ill: Daniela is a 65-year-old female with a notable past medical history of hypertension, renal artery stenosis, peripheral vascular disease, COPD, and newly diagnosed carotid artery stenosis (right demonstrating high-grade stenosis to 90%, left demonstrating moderate stenosis to 60%) who was initially transferred to the ICU for intensive preoperative blood pressure monitoring; her intraoperative course was complicated by brief cardiac arrest (40 seconds) that required CPR, before achieving ROSC. Neuro - [facility] ICU: Negative Sedation: None Analgesia: None required at this time L Basal Ganglia Stroke * R facial droop still present on exam - could not appreciate significant UE/LE weakness today * CT-H: Demonstrating 2cm hypodense focus w/i left basal ganglia, c/w acute- subacute infarct * ECG - no change, no dysrhythmia * Echo - normal LV function. EF 65-70. No RWAs. Moderate LVH. No thrombus. * Neurology consulted * Continue regular neuro checks * PASTRY SUPERVISOR consult - aspiration appreciated. [place]-thick diet. Consider video swallow. * Treat BPs > 185 * Will need PT, OT History of Frequent Alcohol Use * Patient reports consuming 3 x 12oz beers / day, last drink on Sunday, 05/01 * No sxs of withdrawal nearly 4 days out at this point. * Does not report h/o withdrawal. No components of HPI or physical exam c/w such today. * Folate, thiamine supplementation Cardiovascular - Carotid Artery Stenosis (generally aside PAD) * Discovered during 03/2021 work-up for dizziness; YVETTE thought to be unrelated to symptoms * BP management, as below -- goal range: < 185 / 110 * s/p on 05/04 * Continue ASA, statin * If repeat H&H stable, can resume Plavix Hypertensive Urgency (in the preoperative setting) * Labile, very positionally dependent, A-line/NIBP affected by PAD * Required 1x dose of hydralazine 5 last night. BPs since have been stable. * Can d/c A-line at this point * Resume amlodipine today -- if BPs fine, can add on lisinopril too * Continue to hold Coreg * Hydralazine p.r.n. Intraoperative Cardiac Arrest * Intraop asystole with ROSC 40 seconds later - CPR * Cardiology following - will speak with EP. Consider pacemaker vs. loop recorder * Continue CV management as above otherwise Infrarenal AAA - noted on imaging 01/22/21 * No acute concerns. Vascular following and will arrange further management as outpatient. Respiratory - Tobacco Abuse / Suspected COPD * No acute concerns right now * 40 pack-year history; smoking cessation strongly advised * Based on review of PCP notes, patient has declined PFTs, inhaler + cessation therapies * Will need f/u with pulmonary as outpatient GI - History of PUD with Duodenal Perforation * s/p corrective surgery in 12/2020 * No acute concerns at present * Continue home PPI b.i.d. See stroke plan above * Diet: [place] thick per speech. Consider swallow study Can d/c LR given adequate UOP RENAL/LYTES - Renal Artery Stenosis * Noted. Seen by nephrology, vascular during previous course. No intervention indicated at present. Lytes stable. Replete p.r.n. - - No concerns at this time ENDO - - No acute concerns at present. HEME - * Postop Hgb drop from 11 --> 9.8 this AM, also in setting of IVF * Suspect dilutional but will recheck H&H at 1100h * If stable can restart Plavix. ID - Ulcer of R Heel x Several Months -- likely grade 4 or 3 * In setting of significant PAD with previous stenting in RLE * Suspect that this is likely grade IV, possibly with osteo as well * No acute intervention needed right now, but will likely need debridement in near future -- will defer to vascular * Consider wound CX vs. MRI for further characterization INTEGUMENTARY - * See ID above LINES/IV ACCESS - PIVs intact. DVT PROPHYLAXIS - SCDs. Thank you for allowing us to be part of this patient's care. Please refer to Dr. Inman's documentation for any further recommendations. (2) Right foot ulcer: (3) Tobacco abuse: (4) Gastric perforation: (5) Pulmonary edema: (6) Alcohol use: (7) Left renal mass: (8) COPD with emphysema: Admission and Anticipated Discharge Date Admission Date: May 02, 2021 Supervising Physician Co-Signing Physician Notes Dr. Ospina was the resident-physician during care of patient. I separately evaluated patient for finney portions of the history and the exam. I was present during the critical portion of medical decision making, and I discussed the case with the resident. I generally agree with the findings and plan except for any additions/exceptions noted. Patient seen and examined at bedside. No acute distress. Yesterday post OR patient had slurring of the speech and right facial. CT head was done which showed left ganglia infarct acute to subacute. Patient blood pressure is fairly controlled. Currently holding some of her blood pressure medications HEENT: EOMI, PERRLA, right-sided facial droop appreciated, no proptosis today. Mild slurring of the speech. Right sided neck dressing in place Respiratory system: Decreased air entry bilaterally, no crackles, positive rhonchi more on the right side, mild expiratory wheeze CVS: S1-S2 positive, no murmurs or gallops Abdomen: Soft, nontender, nondistended, positive bowel sounds x4 Extremities: +2 pulses bilaterally radialis/ dorsalis pedis, no cyanosis, no edema, right lower extremity medial aspect of the proximal stump has 3 x 2.5 cm ulceration which is foul-smelling Neuro: Awake alert oriented x3 Psych: Normal mood and affect G/U: No King Plan: In/out: Positive 3.1 L, urine output 1276 We will get official swallow eval before the patient can eat. DC IV fluids Patient likely has osteomyelitis of the right lower extremity. Can consider MRI of the foot to confirm osteo and may be biopsy before starting the antibiotics Mild drop in hemoglobin. Repeat H&H stable. We will start the patient on Plavix. DC A-line. Please note the above document was generated using voice recognition software. It may contain grammatical, syntax or spelling errors.Any formal questions or concerns about the content, text or information contained within the body of this dictation should be directly addressed to the provider for clarification. Subjective NAEO. Did require hydralazine x 1 for BPs in the 170/100 range. Otherwise reports feeling well. No complaints from her perspective. No chest pain. No shortness of breath. No double vision or numbness/tingling. Does say that her R heel wound is hurting her a little bit after bandage removal. Review of Systems Review of Systems: As per HPI Physical Exam Physical Exam: General: 65yoF who is alert, oriented, and appears in no acute distress. Body habitus: thin. HEENT: NCAT. Eyes - Sclera are white, anicteric, and without injection. PERRL. EOMs display full ROM bilaterally. Mouth - MMM with no tonsillar edema or exudates. Cardiac: Normal rate and regular rhythm; S1 and S2 present with no murmurs, rubs, or gallops. Pulmonary: Good respiratory effort with symmetric expansion of the chest. No use of accessory muscles. Inspiratory rhonchi appreciable more-so on R compared to L on my exam, associated with expiratory wheezes. Abdominal: Normoactive bowel sounds. Abdomen was soft, nondistended, and non- tender to palpation. Extremities: Upper and lower extremities are warm and well perfused. There is a well defined, 3x3cm ulceration with extensive intralesional erosion of muscle tissue with overlying purulence - likely grade IV ulcer. No direct bone visualization. Capillary refill assessed in UE was < 3 sec. Neuro: - Cranial Nerves: CN I, IX, and X - not assessed. II - PERRL. III/IV/ - EOMs WNL. Mild L ptosis. VII - Facial droop appreciable on R; forehead wrinkling equal and symmetric . IX - Patient is able to shrug shoulders against resistance. XI - Soft palate raises equally and appropriately while saying "ah." XII - tongue deviation towards the right. Motor function otherwise in-tact. - Motor: UE - Finger, wrist, elbow, and shoulder strength is 5/5 bilaterally. LE - Hip, knee, and ankle strength is 5/5 bilaterally. - Sensation: UE and LE sensation to light touch is grossly intact bilaterally. - [id number]: WNL b/l. No dysmetria. [id number]-[id number]; WNL b/l. Psych: Well-developed, well-nourished, appropriately dressed for occasion. Behavior is cooperative and appropriate. Affect is WNL. Mild dysarthria. Insight is appropriate. Results & Data Results & Data ([facility]) Vital Signs (Past 12 Hours) Vital Signs Temp Pulse Resp BP Pulse Ox 05/05/21 06:02 89 20 164/62 H 97 05/05/21 05:32 84 13 153/61 H 96 05/05/21 05:02 98 H 20 173/102 H 93 05/05/21 04:32 88 18 169/62 H 96 05/05/21 04:02 36.5 C 73 13 167/70 H 98 05/05/21 03:32 78 13 178/65 H 98 05/05/21 03:02 92 H 23 150/99 H 93 05/05/21 02:32 96 H 18 136/63 92 05/05/21 02:02 78 15 169/64 H 93 05/05/21 01:32 98 H 20 160/64 H 95 05/05/21 01:02 94 H 20 129/100 96 05/05/21 00:32 88 18 148/66 H 95 05/05/21 00:02 36.5 C 83 20 132/55 L 92 05/04/21 23:32 91 H 23 139/65 92 05/04/21 23:02 82 16 140/62 95 05/04/21 22:32 72 24 129/60 97 05/04/21 22:02 72 19 152/61 H 93 05/04/21 21:32 86 15 175/87 H 91 05/05/21 10:59 05/05/21 04:28 Resident Activity Tracking Resident Involvement: Resident Care Provided Care Provided: Adult Hospital Medicine (1) COPD with emphysema Emphysema type: unspecified Qualified Code(s): J43.9 - Emphysema, unspecified (2) Right foot ulcer Non-pressure ulcer stage: unspecified non-pressure ulcer stage Qualified Code(s): L97.519 - Non-pressure chronic ulcer of other part of right foot with unspecified severity
[2021-05-05] MEDS: amLODIPine BESYLATE 5 MG TAB PO SCH (11:09)
[2021-05-05] MEDS: PANTOprazole 40 MG TAB PO SCH ×2 (11:10→19:50)
[2021-05-05] MEDS: CEROVITE ADV FORMULA TAB PO SCH (11:10)
[2021-05-05] MEDS: ATORVASTATIN 40 MG TAB PO SCH (11:10)
[2021-05-05] MEDS: ASPIRIN 81 MG ECTAB PO SCH (11:10)
[2021-05-05] MEDS: COLLAGENASE OINT 30 GM TUBE TOP SCH (11:10)
[2021-05-05] MEDS: oxyCODONE/ACETAMINOPHEN 5mg/325mg TAB PO PRN ×2 (11:14→19:52)
[2021-05-05] MEDS: guaiFENesin 600 MG TABCR PO SCH ×2 (11:15→19:46)
[2021-05-05 11:20] LABS: Basophils # (auto) 0.01 K/uL (0-0.2); Basophils % (auto) 0.1 %; Eosinophils # (auto) 0.02 K/uL (0-0.5); Eosinophils % (auto) 0.2 %; Hematocrit (blood only) 30.5 % (37-47); Hemoglobin 9.9 g/dL (12.0-16.0); Immature Granulocytes # (auto) 0.02 K/uL (0.00-0.02); Immature Granulocytes % (auto) 0.2 %; Lymphocytes # (auto) 0.92 K/uL (1.2-3.4); Lymphocytes % (auto) 9.8 %; Mean Corpuscular Hemoglobin 33.2 pg (25-34); Mean Corpuscular Hgb Conc 32.5 g/dL (32-36); Mean Corpuscular Volume 102.3 fL (80-100); Mean Platelet Volume 8.5 fL (7.4-10.4); Monocytes # (auto) 1.06 K/uL (0.11-0.59); Monocytes % (auto) 11.3 %; Neutrophils # (auto) 7.33 K/uL (1.4-6.5); Neutrophils % (auto) 78.4 %; Platelet Count 251 K/uL (130-400); RDW Coefficient of Variation 14.1 % (11.5-14.5); RDW Standard Deviation 52.9 fL (36.4-46.3); Red Blood Count 2.98 M/uL (4.2-5.4); White Blood Count 9.36 K/uL (4.8-10.8)
--- NOTE | 2021-05-05 11:22 | Neurology Consultation ---
Date of Consultation May 05, 2021 Assessment & Plan (1) Acute CVA (cerebrovascular accident): (2) Facial droop due to stroke: (3) Hypertension: (4) Asystole: (5) Carotid artery disease: (6) PAD (peripheral artery disease): (7) COPD with emphysema: this patient suffered an acute left basal ganglia lacunar stroke, likely ischemic, from an asystole event during right carotid endarterectomy surgery May 04. The arrest was brief and she was quickly resuscitated, but unfortunately, given her diffuse vascular pathology and COPD, she dropped her oxygenation/ perfusion pressure to that area and had a small stroke. Clinically she is doing well with a slight right facial droop and no obvious right upper extremity weakness or speech problems today. She has an internal carotid stenosis of 60 percent on the left. She also has renal artery stenosis and peripheral arterial disease of a significant nature. The patient has hypertension better controlled this morning than on admission. Recommendations: 1. resume 81 milligram aspirin +75 milligrams clopidogrel when able postop eratively. 2. Increase activity as able. 3. Control blood pressure as you are doing aiming for a mean arterial pressure of 95-100. 4. consider MRI of the brain when able to get up more precise picture of the stroke. We can also see if there is any other "silent" areas of infarct as well. Overall, I spent a total of 70 minutes with this case including review of records, review of CT films, Direct evaluation of the patient at bedside, and discussion of the case with the patient at bedside and Drs. Ospina and Uriah, including differential diagnosis and treatment options. History of Present Illness Reason for Consultation: Patient is a 65-year-old, who I was asked to see at the request of Dr. Kruse, for neurologic consultation regarding stroke. Requesting Physician: Dr. Kruse Attending Physician: Cash Baker MD History of Present Illness patient has a history of significant peripheral arterial disease with right foot ulcer healing issues. She also has a history of significant hypertension which has been difficult to control more recently. She has COPD and is a chronic smoker.The patient is known to have renal artery stenosis and an unruptured small abdominal aortic aneurysm. The patient was on 81 milligram aspirin 75 milligrams clopidogrel prior to admission. She was also taking amlodipine, lisinopril, and carvedilol. She is on 40 milligrams of atorvastatin also. In early March she was admitted with dizziness and a CT angiography of the neck showed high-grade stenosis of greater than 90 percent in the proximal right internal carotid artery. The left showed [address] scan of the head was unremarkable, and an MRI of the brain showed old ischemia with no stroke. Patient was admitted and on April 04 underwent a right carotid endarterectomy by Dr. Baker. Apparently she had a 40 second episode of cardiac arrest during the surgery and was resuscitated. By the afternoon of May 04 she was noted to have some facial droop, slurred speech, and a right upper extremity weakness. A CT scan of the head showed a new 2 centimeter left basal ganglia area stroke, not present on the CT scan March 29. This morning the patient feels better and she is sitting up in bed eating. She denies headache or pain and has no new weakness or numbness. She believes her speech is back to baseline. Allergies Allergy/AdvReac Type Severity Reaction Status Date / Time No Known Allergies Allergy Mild Verified 05/02/21 06:42 Home Medications Medication Instructions Recorded Confirmed Type aspirin 81 mg PO QAM #90 tab 04/01/21 05/02/21 Rx clopidogrel 75 mg PO QAM #30 tab 04/01/21 05/02/21 Rx Santyl 1 applic TOPICAL QAM 04/08/21 05/02/21 History cwdjksydypcs-zagkwcqo-kclqit 1 tab PO QAM 04/08/21 05/02/21 History pantoprazole 40 mg tablet,delayed 40 mg PO BID #60 tab 04/11/21 05/02/21 Rx release carvedilol 12.5 mg PO BID #60 tab 04/16/21 05/02/21 Rx lisinopril 40 mg tablet 40 mg PO QAM #90 tab 04/25/21 05/02/21 Rx acetaminophen [Tylenol Extra 500 - 1,000 mg PO Q6H PRN 04/28/21 05/02/21 History Strength] atorvastatin 40 mg PO QAM 04/28/21 05/02/21 History Patient History Medical History AAA (abdominal aortic aneurysm) 16mm x 7mm sacular aneurysm of infrarenal abdominal aorta per 01/22/21 CT scan Alcohol use 3-4 beers daily per nursing assessment Alcohol abuse per records Carotid artery disease COPD with emphysema Per records Dizziness Recently admitted 03/30/21-04/01/21 Possibly related to HTN GERD (gastroesophageal reflux disease) UNDER CONTROL Hypertension Ischemic ulcer of right foot Follows with Wound Clinic Left renal mass Left side- per 04/15/21 MRI= 1.6 x 1.0 cm or slightly exophytic focus within the lateral aspect of the left kidney.- worrisome for RCC per records- pt will follow up as outpatient PAD (peripheral artery disease) S/p stent to right LE February 2021 with [facility] Bilateral iliac artery stenosis Renal artery stenosis Per CT scan 12/[address] Baker Surgical History H/O exploratory laparotomy (01/22/21) Exploratory laparotomy, oversew perforated duodenal ulcer, abdominal washout. Dr. Craig 01/22/2021 H/O tubal ligation H/O vascular surgery 2 stents to right leg [facility] February 2021 History of colonoscopy [place] teeth extracted Family History Mother , age 70 of lung cancer Diabetes Lung cancer Hypertension Father , age 52 of complications of vascular surgery. Lung cancer PAD (peripheral artery disease) Denies family history of Ovarian cancer Prostate cancer Myocardial infarction Breast cancer Colorectal cancer Social History Smoking Status: Current every day smoker Tobacco Type: Cigarettes Age Started Using Tobacco: 27; packs per day: 1; Cigarettes Per Day: 1 ppd; Second Hand Exposure: No; Do You Dip or Chew Tobacco: No; Hx Alcohol Use: Yes Alcohol type: beer Alcohol Intake Frequency: 4 or More x per/Week Alcohol Intake Frequency Comment: 2-3 beers daily or more Hx Substance Use: No Preferred Language: Azeri Communication Ability: Effective Visual Impairment: Limited Hearing Ability: Normal Tax Credit Leasing Consultant Required: No Beliefs That Will Affect Care: None marital status: Current Living Situation: Spouse current occupational status: employed 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 How many Children do You have: 2 Other Information That Helps Us Care for You: No Feels Safe at Home: Yes Safety Concerns: Feels Safe At This Time Childhood Exposure to Second-Hand Smoke: Yes caffeine: Yes during the past year weight has: remained stable Dental Care, Regularly: No Physical Activity Frequency: Does not Exercise Physical Activity Frequency Comment: on feet at work all day Seatbelt Use: always Sunscreen Use: No Assistive Devices: Oxygen - Continuous Review of Systems Constitutional: no fever, no fatigue and no weakness Eyes: no diplopia, no eye pain and no worsening vision Ear, Nose, Mouth, Throat: no ear pain, no tinnitus, no hearing loss, no dizziness, no hoarseness and no dysphagia Respiratory: no cough and no dyspnea Cardiovascular: no chest pain, no palpitations and no lightheadedness Gastrointestinal: no abdominal pain, no nausea and no vomiting Genitourinary: no dysuria, no urinary frequency and no urinary incontinence Musculoskeletal: no back pain, no neck pain, no radicular pain, no joint pain and no myalgia Integumentary: no rash and no lesions Neurologic: no gait abnormality, no localized weakness, no generalized weakn ess, no tingling, no numbness, no tremor(s), no abnormal movements, no headache( s), no abnormal speech, no confusion and no memory loss Psychiatric: no depression, no irritability, no anxiety, no difficulty concentrating, no confusion and no hallucinations Endocrine: no fatigue and no flushing Hematologic / Lymphatic: no easy bleeding and no easy bruising Allergy / Immunological: no urticaria and no problem reported Exam (Neuro) Physical Exam: The patient is left-handed. The patient is awake, alert, and attentive. Speech is normal without any aphasia or dysarthria. She can name objects, repeat phrases, and has normal spontaneous speech. Mentation and thought processes are intact, with orientation to person, place and time, and normal fund of knowledge. Attention and concentration are normal. Mood and affect are normal and appropriate. General appearance and grooming are normal. Short and long-term memory are intact to conversation. The discs are sharp with positive venous pulsations bilaterally. There are no exudates, hemorrhages, or blood vessel changes seen. Pupils are 3 mm bilaterally and reactive to light. Extraocular eye muscles are intact without nystagmus. Visual acuity and visual ludwig seem normal grossly to confrontation. There are no deficits to sensation in the face in all 3 distributions of the fifth cranial nerve bilaterally. Corneal reflexes are positive bilaterally. there is a very mild facial droop on the right at rest compared to the left and does move some voluntarily. Hearing seems normal to whisper and finger rub bilaterally. Palate moves well without asymmetry. There is normal sternocleidomastoid and trapezius (shoulder shrug) strength bilaterally. Tongue is midline with good strength bilaterally. Neck has a full range of motion without discomfort. There are no cervical bruits bilaterally. There are no cranial or ocular bruits. Heart is without murmur. There is a regular rhythm and rate. Cervical, thoracic, and lumbar spine are nontender to palpation. Gait was not tested but stance sitting up in bed is quite good. With outstretched arms there is no drift. There are no resting, postural, or action tremors. There is no ataxia with finger to nose testing. There is good facility in the hands. No other abnormal involuntary movements are noted. Motor strength is 5/5 diffusely in the arms bilaterally including deltoids, biceps, triceps, brachioradialis, wrist flexors and extensors, nursing officer, and intrinsic hand muscles. Motor strength is 5/5 diffusely in the legs bilaterally including hip flexors, quadriceps, hamstrings, gastrocnemius, tibialis anterior, tibialis posterior, and Peroneii muscles. Toe extensors are normal and there is good bulk in the extensor digitorum brevis muscles bilaterally. The limbs have good tone without rigidity or spasticity. There is no atrophy noted in the muscles. Muscle bulk is normal, there is no tenderness to palpation, no myotonia to percussion, and no fasciculations seen. Sensory examination is intact to touch and pin throughout all 4 limbs diffusely. Reflexes are 1/4 in the biceps, triceps, and quadriceps tendons bilaterally. Brachioradialis and Achilles tendon reflexes are absent bilaterally. There is no clonus bilaterally. Toes are downgoing with plantar stimulation bilaterally. Peripheral pulses are present and of normal quality distally in all 4 limbs. There is no peripheral edema noted in the limbs. Results & Data ([facility]) Vital Signs (Past 12 Hours) Vital Signs Temp Pulse Resp BP Pulse Ox 05/05/21 10:02 84 13 128/63 90 05/05/21 09:15 37.4 C 05/05/21 09:02 101 H 18 80/61 L 94 05/05/21 08:02 98 H 15 179/83 H 93 05/05/21 08:00 85 05/05/21 07:02 95 H 14 177/83 H 95 05/05/21 06:02 89 20 164/62 H 97 05/05/21 05:32 84 13 153/61 H 96 05/05/21 05:02 98 H 20 173/102 H 93 05/05/21 04:32 88 18 169/62 H 96 05/05/21 04:02 36.5 C 73 13 167/70 H 98 05/05/21 03:32 78 13 178/65 H 98 05/05/21 03:02 92 H 23 150/99 H 93 05/05/21 02:32 96 H 18 136/63 92 05/05/21 02:02 78 15 169/64 H 93 05/05/21 01:32 98 H 20 160/64 H 95 05/05/21 01:02 94 H 20 129/100 96 05/05/21 00:32 88 18 148/66 H 95 05/05/21 00:02 36.5 C 83 20 132/55 L 92 05/04/21 23:32 91 H 23 139/65 92 PG Care Time/CCT Total # of Minutes Spent Total Time Spent with Patient: Total time spent is greater than 50% in coordination of care (as documented) at patient's floor/unit and/or counseling patient: Coding Level of Care Code 11212 Inpt Consult Level 5 Diagnoses Acute CVA (cerebrovascular accident) I63.9 Facial droop due to stroke Hypertension I10 Hypertension type: essential hypertension Asystole I46.9 Carotid artery disease I65.23 Carotid artery disease type: stenosis Laterality: bilateral PAD (peripheral artery disease) I73.9 COPD with emphysema J43.9 Emphysema type: unspecified Time Spent (min) 70 (1) Hypertension Hypertension type: essential hypertension Qualified Code(s): I10 - Essential (primary) hypertension (2) Carotid artery disease Carotid artery disease type: stenosis Laterality: bilateral Qualified Code(s): I65.23 - Occlusion and stenosis of bilateral carotid arteries (3) COPD with emphysema Emphysema type: unspecified Qualified Code(s): J43.9 - Emphysema, unspecified
--- NOTE | 2021-05-05 13:41 | Surgery Progress Note ---
Date of Service May 05, 2021 Assessment & Plan (1) Asystole: She has had no further bouts of asystole. Her heart is regular rate and rhythm at this point. (2) Acute CVA (cerebrovascular accident): CT scan did show a left hemispheric CVA in the basal ganglia. This was subacute in nature according to the official interpretation. Her strength is equal and normal in both upper and lower extremities. She does have a small mild right facial droop. (3) Hypertension: Her hypertension at this point is controlled. (4) S/P carotid endarterectomy: This patient is postoperative day 1 from right carotid enterectomy. She is doing well from the surgical procedure. She does have difficulty swallowing clear liquids but is able to tolerate solid foods. She was placed on a heart healthy with thickened liquid diet. (5) Aspiration of food: Patient does have difficulty with liquids with a small amount of aspiration. She does do well with solid foods. She was placed on a heart healthy diet with thickened liquids. We will transfer to telemetry at this point. Admission and Anticipated Discharge Date Admission Date: May 02, 2021 Subjective This is a 65-year-old female who is day 1 postoperative from a right carotid endarterectomy. She claims to be doing fine. She denies any focal weakness. She is able to swallow solid foods but that has some difficulty with liquids. She denies any speech difficulties. Physical Exam Constitutional: WD/WN, vitals as above Neck: trachea midline Cardiovascular: Rate/Rhythm: regular rate and regular rhythm Musculoskeletal: no cyanosis or clubbing, extremities motor strength 5/5 Skin: + incision (There is mild swelling of the incision site otherwise it is dry and clean.) Neurologic: CN's II-XI intact bilaterally and moves all extremities She does have a very mild right facial droop. Psychiatric: Orientation: alert and oriented x 3 Results & Data ([facility]) Vital Signs (Past 12 Hours) Vital Signs Temp Pulse Resp BP Pulse Ox 05/05/21 12:17 90 15 126/64 98 05/05/21 11:18 101 H 17 149/99 H 91 05/05/21 10:02 84 13 128/63 90 05/05/21 09:15 37.4 C 05/05/21 09:02 101 H 18 80/61 L 94 05/05/21 08:02 98 H 15 179/83 H 93 05/05/21 08:00 85 05/05/21 07:02 95 H 14 177/83 H 95 05/05/21 06:02 89 20 164/62 H 97 05/05/21 05:32 84 13 153/61 H 96 05/05/21 05:02 98 H 20 173/102 H 93 05/05/21 04:32 88 18 169/62 H 96 05/05/21 04:02 36.5 C 73 13 167/70 H 98 05/05/21 03:32 78 13 178/65 H 98 05/05/21 03:02 92 H 23 150/99 H 93 05/05/21 02:32 96 H 18 136/63 92 05/05/21 02:02 78 15 169/64 H 93 05/05/21 01:32 98 H 20 160/64 H 95 (1) Hypertension Hypertension type: essential hypertension Qualified Code(s): I10 - Essential (primary) hypertension
--- NOTE | 2021-05-05 13:48 | Billing Data ---
Date of Service May 05, 2021 Coding Level of Care Code 36930 Subseq Hosp Care Lvl 3
[2021-05-05] MEDS: CLOPIDOGREL BISULFATE 75 MG TAB PO SCH (15:23)
--- NOTE | 2021-05-05 22:19 | Hospitalist Progress Note ---
Date of Service May 05, 2021 Assessment & Plan (1) Asystole: happened intra-operatively no further episodes, unclear etiology appreciate cardiology consult, no indication for pacemaker monitor on tele (2) Acute CVA (cerebrovascular accident): left basal ganglia, likely from asystole episode causing hypoperfusion consult neurology plan for MRI brain once she is medically stable CT brain showed the acute stroke aspirin and Plavix better blood pressure control statin therapy glucose control (3) Aspiration of food: consult speech - eating better the further she gets from time of stroke (4) Hypertensive urgency: Blood pressure is stable on amlodipine 10mg daily, Coreg 12.5mg BID and lisinopril 40mg daily went up after OR and with stroke monitor closely, consider increasing or adding medications (5) Renal artery stenosis: Cr is normal (6) PAD (peripheral artery disease): Patient is on aspirin and Plavix, continue this per vascular (7) Carotid artery disease: Right CEA done today, 05/04 found to have stroke afterwards, see above Admission and Anticipated Discharge Date Admission Date: May 02, 2021 Subjective patient doing well, recovering from surgery, she had a small stroke intra- operatively when she went asystole appreciate consult from Dr. Tam, likely the asystole caused hypoperfusion to that area of brain, left basal ganglia symptoms resolved for the most part eating better, breathing well, no chest pain, no fever labs reviewed discussed with Dr. Inman and Dr. Baker, will move to PCU Review of Systems Review of Systems: All systems reviewed & are unremarkable except as noted in Subjective Constitutional: + fatigue and + weakness; no fever Respiratory: no cough and no dyspnea Cardiovascular: no chest pain, no palpitations and no edema Gastrointestinal: no abdominal pain, no nausea, no vomiting, no constipation and no diarrhea/loose stools Neurologic: + localized weakness (some difficulty speaking, swallowing, right arm weakness - resolved) Physical Exam Constitutional: WD/WN, vitals as above Neck: trachea midline, no thyromegaly (right CEA incision, dressing intact) Respiratory: normal respiratory effort, lungs clear to auscultation Cardiovascular: RRR, no murmur, no edema Gastrointestinal (Abdomen): normal bowel sounds, soft, nontender, no hepatosplenomegaly Musculoskeletal: no cyanosis or clubbing, extremities motor strength 5/5 Skin: no rashes, warm and dry Neurologic: patellar DTR's 2+ bilat, sensation intact and PERRL, EOMI, accommodation nl, no face palsy, no dysarthria Psychiatric: A+Ox3, euthymic affect Results & Data Results & Data ([facility]) Vital Signs (Past 12 Hours) Vital Signs Temp Pulse Pulse Resp BP BP Pulse Ox 05/05/21 19:52 36.6 C 91 H 20 152/69 H 91 05/05/21 18:03 83 17 164/86 H 05/05/21 17:17 93 H 18 143/62 H 90 05/05/21 16:48 36.7 C 05/05/21 16:17 88 15 179/74 H 91 05/05/21 16:00 82 05/05/21 15:17 80 13 158/69 H 92 05/05/21 14:17 94 H 19 147/58 H 91 05/05/21 13:17 81 13 154/66 H 92 05/05/21 12:17 90 15 126/64 98 05/05/21 11:18 101 H 17 149/99 H 91 Laboratory Results Laboratory Results - last 24 hr 05/05/21 05/05/21 05/05/21 04:28 04:28 10:59 WBC 8.13 9.36 RBC 2.84 L 2.98 L Hgb 9.8 L 9.9 L Hct 29.5 L 30.5 L MCV 103.9 H 102.3 H MCH 34.5 H 33.2 MCHC 33.2 32.5 RDW Std Deviation 53.9 H 52.9 H RDW Coeff of Odette 14.0 14.1 Plt Count 258 251 MPV 8.6 8.5 Immature Gran % (Auto) 0.1 0.2 Neut % (Auto) 70.2 78.4 Lymph % (Auto) 14.4 9.8 [place] % (Auto) 14.9 11.3 Eos % (Auto) 0.2 0.2 Baso % (Auto) 0.2 0.1 Neut # (Auto) 5.70 7.33 H Lymph # (Auto) 1.17 L 0.92 L [place] # (Auto) 1.21 H 1.06 H Eos # (Auto) 0.02 0.02 Baso # (Auto) 0.02 0.01 Immature Gran # (Auto) 0.01 0.02 RBC Morphology Unremarkable Sodium 139 Potassium 4.1 Chloride 109 H Carbon Dioxide 27 Anion Gap 3.0 BUN 25 H Creatinine 0.53 L D Est Cr Clr Drug Dosing 76.6 Est GFR ( Amer) 117.1 Est GFR (Non-Af Amer) 101.0 BUN/Creatinine Ratio 46.5 H Glucose 95 Calcium 8.4 L Phosphorus 3.9 Magnesium [address] head done 05/04 Impression: Interval development of a 2 cm hypodense focus within the left basal ganglia. This is consistent with a subacute infarct. Medications Administered Current Inpatient Medications Acetaminophen (Acetaminophen 500 Mg Tab) 500 - 1,000 mg PO Q6H PRN; Protocol PRN Reason: Pain Stop: 06/01/21 10:25 Amlodipine Besylate (Amlodipine Besylate 5 Mg Tab) 10 mg PO [facility] Stop: 06/03/21 08:59 Last Admin: 05/05/21 11:09 Dose: 10 mg Documented by: Aspirin (Aspirin 81 Mg Ectab) 81 mg PO [facility] Stop: 06/01/21 10:59 Last Admin: 05/05/21 11:10 Dose: 81 mg Documented by: Atorvastatin Calcium (Atorvastatin 40 Mg Tab) 40 mg PO [facility] Stop: 06/01/21 10:59 Last Admin: 05/05/21 11:10 Dose: 40 mg Documented by: Carvedilol (Carvedilol 12.5 Mg Tab) 12.5 mg PO BID [facility] Stop: 06/01/21 10:59 Last Admin: 05/04/21 16:14 Dose: Not Given Documented by: Clopidogrel Bisulfate (Clopidogrel Bisulfate 75 Mg Tab) 75 mg PO [facility] Stop: 06/04/21 13:14 Last Admin: 05/05/21 15:23 Dose: 75 mg Documented by: Collagenase (Collagenase Oint 30 Gm Tube) 1 appln TOP [facility] Stop: 06/01/21 10:59 Last Admin: 05/05/21 11:10 Dose: 1 appln Documented by: Folic Acid (Folic Acid 1 Mg Tab) 1 mg PO [facility] Stop: 06/05/21 08:59 Guaifenesin (Guaifenesin 600 Mg Tabcr) 1,200 mg PO Q12 [facility] Stop: 06/02/21 20:59 Last Admin: 05/05/21 19:46 Dose: 1,200 mg Documented by: Lisinopril (Lisinopril 40 Mg Tab) 40 mg PO QAM [facility] Stop: 06/01/21 10:59 Last Admin: 05/04/21 16:14 Dose: Not Given Documented by: Metoprolol Tartrate (Metoprolol Tartrate 1 Mg/Ml Vial) 2.5 mg IV Q6 PRN PRN Reason: Systolic blood pressure greater than 185 Stop: 06/03/21 17:59 Multivitamins/Minerals (Cerovite Adv Formula Tab) [facility] [place] Stop: 06/01/21 10:59 Last Admin: 05/05/21 11:10 Dose: 1 tab Documented by: Oxycodone/Acetaminophen (Oxycodone/Acetaminophen 5mg/325mg Tab) 1 - 2 tab PO Q4H PRN PRN Reason: Moderate Pain Stop: 05/18/21 12:48 Last Admin: 05/05/21 19:52 Dose: 1 tab Documented by: Pantoprazole Sodium (Pantoprazole 40 Mg Tab) 40 mg PO BID [facility] Stop: 06/01/21 10:59 Last Admin: 05/05/21 19:50 Dose: 40 mg Documented by: Thiamine HCl (Thiamine Hcl 100 Mg Tab) 100 mg PO QAM [facility] Stop: 06/05/21 08:59 PG Care Time/CCT Total # of Minutes Spent Total Time Spent with Patient: Total time spent is greater than 50% in coordination of care (as documented) at patient's floor/unit and/or counseling patient: Coding Level of Care Code 35478 Subseq Hosp Care Lvl 3 Diagnoses Asystole I46.9 Acute CVA (cerebrovascular accident) I63.9 Aspiration of food T17.920A Hypertensive urgency I16.0 Renal artery stenosis I70.1 PAD (peripheral artery disease) I73.9 Carotid artery disease I65.23 Carotid artery disease type: stenosis Laterality: bilateral (1) Carotid artery disease Carotid artery disease type: stenosis Laterality: bilateral Qualified Code (s): I65.23 - Occlusion and stenosis of bilateral carotid arteries
[2021-05-06 07:13] LABS: Phosphorus 2.4 mg/dl (2.5-4.9)
[2021-05-06] MEDS: guaiFENesin 600 MG TABCR PO SCH ×2 (07:28→21:12)
[2021-05-06] MEDS: PANTOprazole 40 MG TAB PO SCH ×2 (07:30→21:13)
[2021-05-06] MEDS: CEROVITE ADV FORMULA TAB PO SCH (07:30)
[2021-05-06] MEDS: ATORVASTATIN 40 MG TAB PO SCH (07:30)
[2021-05-06] MEDS: amLODIPine BESYLATE 5 MG TAB PO SCH (07:31)
[2021-05-06] MEDS: FOLIC ACID 1 MG TAB PO SCH (07:31)
[2021-05-06] MEDS: THIAMINE HCL 100 MG TAB PO SCH (07:32)
[2021-05-06] MEDS: ASPIRIN 81 MG ECTAB PO SCH (07:32)
[2021-05-06] MEDS: CLOPIDOGREL BISULFATE 75 MG TAB PO SCH (07:33)
[2021-05-06] MEDS: COLLAGENASE OINT 30 GM TUBE TOP SCH (07:34)
--- NOTE | 2021-05-06 09:50 | Surgery Progress Note ---
Date of Service May 06, 2021 Assessment & Plan (1) Asystole: She has had no further bouts of asystole. Her heart is regular rate and rhythm at this point. (2) Acute CVA (cerebrovascular accident): CT scan did show a left hemispheric CVA in the basal ganglia. This was subacute in nature according to the official interpretation. Her strength is equal and normal in both upper and lower extremities. She does have a small mild right facial droop. (3) Hypertension: Her hypertension at this point is controlled. (4) S/P carotid endarterectomy: This patient is postoperative day 2 from right carotid enterectomy. She is doing well from the surgical procedure. (5) Aspiration of food: Patient does have difficulty with liquids with a small amount of aspiration. She does do well with solid foods. She was placed on a heart healthy diet with thickened liquids. Pt discussed with medical service, who agrees to transfer pt to their service. Admission and Anticipated Discharge Date Admission Date: May 02, 2021 Subjective 65 yo f POD #2 after R CEA, complicated by intraoperative asystole and L hemispheric CVA, seen in f/u today. Pt states she is tired, but otherwise, feeling generally ok. Admits some discomfort in r neck, but denies any other new complaints. states eating and drinking ok. Review of Systems Review of Systems: All systems reviewed & are unremarkable except as noted in HPI & below Physical Exam Constitutional: WD/WN, vitals as above Respiratory: normal respiratory effort, lungs clear to auscultation Auscultation: + diminished lung sounds Cardiovascular: Rate/Rhythm: regular rate and regular rhythm Vessels: posterior tibial pulses present and radial pulses present; + abnormal peripheral pulses Extremities: normal capillary refill Gastrointestinal (Abdomen): normal bowel sounds, soft, nontender, no hepatospl enomegaly Musculoskeletal: Extremities: + abnormal strength (R arm 3/5, L 5/5) Neurologic: moves all extremities, + focal motor deficit (R arm weak) and awake; not confused Speech / Cognition: + expressive aphasia Psychiatric: A+Ox3, euthymic affect Results & Data ([facility]) Vital Signs (Past 12 Hours) Vital Signs Temp Pulse Pulse Resp BP Pulse Ox 05/06/21 09:00 81 05/06/21 07:19 36.6 C 81 16 195/75 H 92 05/06/21 04:45 36.6 C 96 H 20 196/76 H 91 05/06/21 01:02 178/74 H 05/06/21 00:02 102 H 05/05/21 23:40 36.6 C 87 24 188/74 H 91 (1) Hypertension Hypertension type: essential hypertension Qualified Code(s): I10 - Essential (primary) hypertension
--- NOTE | 2021-05-06 11:54 | Cardiology Progress Note ---
Date of Service May 06, 2021 Assessment & Plan (1) Asystole: (2) Stroke: (3) Tobacco abuse: (4) Hypertension: ASSESSMENT/PLAN: 1. Asystole: Reported episode of asystole intraoperatively. No arrhythmias documented subsequently. She did not endorse a recent history of dizziness, lig htheadedness or syncope. She has had some of the symptoms in the past and was actually admitted for observation for dizziness and presyncope. However, there was no correlation between any arrhythmia and her symptoms at that time. Given the situational nature of her recent event in the absence of symptoms at other times, do not believe this is an indication for permanent pacing. She can reema nue to be monitored on telemetry during her admission. If carvedilol is required for treatment of her hypertension, I think this can be safely administered. 2. Stroke: Some facial droop. Some difficulty swallowing. Being evaluated by Neurology for what is believed to be a subacute CVA. 3. Tobacco abuse Admission and Anticipated Discharge Date Admission Date: May 02, 2021 Subjective This morning the patient complained of some mild discomfort at her operative s ite. She appears to have some difficulty with swallowing. She has not noticed any speech difficulty. She has been using the bedside commode. She denies dizziness or lightheadedness. She has not been aware of palpitations. Review of Systems Review of Systems: Per HPI Physical Exam Physical Exam: The patient is alert and oriented. Mood and affect appeared normal. He answered all questions appropriately. HEENT: anicteric sclera Neuro: Right facial droop. Some tongue deviation. some difficulty with speech although not aphasia. Neck: Swelling and ecchymosis involving the surgical site in the right neck Lungs: Clear to auscultation bilaterally. He has good air movement without use of accessory muscles. No rales wheezes or rhonchi. some congestion in the upper airways. Cardiac: Heart demonstrates a regular rate and rhythm. Normal S1 and S2. No murmurs on examination. Extremities: There was no evidence of hypoperfusion. There is no cyanosis or clubbing. There is no edema. Results & Data ([facility]) Vital Signs (Past 12 Hours) Vital Signs Temp Pulse Pulse Resp BP Pulse Ox 05/06/21 09:00 81 05/06/21 07:19 36.6 C 81 16 195/75 H 92 05/06/21 04:45 36.6 C 96 H 20 196/76 H 91 05/06/21 01:02 178/74 H 05/06/21 00:02 102 H Laboratory Results Abnormal Lab Results 05/06/21 06:05 Phosphorus 2.4 L D Magnesium 2.0 Diagnostic Findings Echocardiogram performed 05/04/2021: Normal LV systolic function. Moderate LVH. No valvular abnormalities. PG Care Time/CCT Total # of Minutes Spent Total Time Spent with Patient: Total time spent is greater than 50% in coordination of care (as documented) at patient's floor/unit and/or counseling patient: Coding Level of Care Code 25538 Subseq Hosp Care Lvl 2 Diagnoses Asystole I46.9 Stroke I63.9 Tobacco abuse Z72.0 Hypertension I10 Hypertension type: essential hypertension (1) Hypertension Hypertension type: essential hypertension Qualified Code(s): I10 - Essential (primary) hypertension
[2021-05-06] MEDS ORDERED: hydrALAZINE HCL 25 MG TAB PO STA (14:29)
[2021-05-06] MEDS ORDERED: carvediloL 25 MG TAB PO SCH (21:00)
[2021-05-06] MEDS: hydrALAZINE HCL 25 MG TAB PO SCH (21:13)
--- NOTE | 2021-05-06 23:21 | Hospitalist Progress Note ---
Date of Service May 06, 2021 Assessment & Plan (1) Asystole: happened intra-operatively no further episodes, unclear etiology appreciate cardiology consult, no indication for pacemaker monitor on tele okay to use Coreg, will increase to 25mg BID today for blood pressure control (2) Acute CVA (cerebrovascular accident): left basal ganglia, likely from asystole episode causing hypoperfusion consult neurology plan for MRI brain in morning on 05/07 CT brain showed the acute stroke aspirin and Plavix better blood pressure control - will add Hydralazine 25mg TID and increase Coreg 25mg BID, continue Norvasc 10mg and lisinopril 40mg statin therapy - Lipitor 40mg glucose control - no history of DM, sugars all < 200 (3) Aspiration of food: consult speech - eating better the further she gets from time of stroke, no major issues today (4) Hypertensive urgency: resolved shortly after admission pressures 190's today, as above, I added Hydralazine and increased Coreg (5) Renal artery stenosis: Cr is normal BP continues to be high (6) PAD (peripheral artery disease): Patient is on aspirin and Plavix, continue this per vascular (7) Carotid artery disease: Right CEA done today, 05/04 found to have stroke afterwards, see above Admission and Anticipated Discharge Date Admission Date: May 02, 2021 Subjective patient sitting up in a chair, having a relatively good day, no major issues eating better, swallowing easier, no chest pain, no dyspnea, no fever blood pressure continues to be elevated, 190's at times, reviewed meds, will increase Coreg to 25mg BID and add Hydralazine 25 TID d/w Dr. Tam, suggests getting an MRI brain, will get this tomorrow, routine d/w Dr. Baker, from surgical standpoint she is stable, I agreed that I would keep her over the weekend on my service no labs today CM has been following patient, she does not wish to have home care, will keep her own follow up with the wound clinic appreciate discharge instructions from animal behaviorist Review of Systems Review of Systems: All systems reviewed & are unremarkable except as noted in Subjective Constitutional: + weakness; no fever and no fatigue Respiratory: no cough, no dyspnea and no dyspnea on exertion Cardiovascular: no chest pain and no edema Gastrointestinal: no abdominal pain, no nausea, no vomiting, no constipation and no diarrhea/loose stools Physical Exam Constitutional: WD/WN, vitals as above + thin Neck: trachea midline, no thyromegaly (right CEA incision, dressing intact) Respiratory: normal respiratory effort, lungs clear to auscultation Cardiovascular: RRR, no murmur, no edema Gastrointestinal (Abdomen): normal bowel sounds, soft, nontender, no hepatosplenomegaly Musculoskeletal: no cyanosis or clubbing, extremities motor strength 5/5 Skin: + wound (wounds on toes, dry) and + dry skin; no rashes Neurologic: patellar DTR's 2+ bilat, sensation intact and PERRL, EOMI, accommodation nl, no face palsy, no dysarthria Psychiatric: A+Ox3, euthymic affect Results & Data Results & Data ([facility]) Vital Signs (Past 12 Hours) Vital Signs Temp Pulse Pulse Resp BP Pulse Ox 05/06/21 22:42 36.6 C 82 20 123/53 L 93 05/06/21 19:00 36.6 C 89 20 136/56 L 96 05/06/21 17:00 86 05/06/21 15:31 36.6 C 75 18 129/58 L 96 Laboratory Results Laboratory Results - last 24 hr 05/06/21 06:05 Phosphorus 2.4 L D Magnesium 2.0 Medications Administered Current Inpatient Medications Acetaminophen (Acetaminophen 500 Mg Tab) 500 - 1,000 mg PO Q6H PRN; Protocol PRN Reason: Pain Stop: 06/01/21 10:25 Last Admin: 05/06/21 09:59 Dose: 1,000 mg Documented by: Amlodipine Besylate (Amlodipine Besylate 5 Mg Tab) 10 mg PO [facility] Stop: 06/03/21 08:59 Last Admin: 05/06/21 07:31 Dose: 10 mg Documented by: Aspirin (Aspirin 81 Mg Ectab) 81 mg PO [facility] Stop: 06/01/21 10:59 Last Admin: 05/06/21 07:32 Dose: 81 mg Documented by: Atorvastatin Calcium (Atorvastatin 40 Mg Tab) [facility] [place] Stop: 06/01/21 10:59 Last Admin: 05/06/21 07:30 Dose: 40 mg Documented by: Carvedilol (Carvedilol 25 Mg Tab) 25 mg PO BID [facility] Stop: 06/05/21 20:59 Clopidogrel Bisulfate (Clopidogrel Bisulfate 75 Mg Tab) 75 mg PO [facility] Stop: 06/04/21 13:14 Last Admin: 05/06/21 07:33 Dose: 75 mg Documented by: Collagenase (Collagenase Oint 30 Gm Tube) 1 appln TOP [facility] Stop: 06/01/21 10:59 Last Admin: 05/06/21 07:34 Dose: 1 appln Documented by: Folic Acid (Folic Acid 1 Mg Tab) 1 mg PO [facility] Stop: 06/05/21 08:59 Last Admin: 05/06/21 07:31 Dose: 1 mg Documented by: Guaifenesin (Guaifenesin 600 Mg Tabcr) 1,200 mg PO Q12 [facility] Stop: 06/02/21 20:59 Last Admin: 05/06/21 21:12 Dose: 1,200 mg Documented by: Hydralazine HCl (Hydralazine Hcl 25 Mg Tab) 25 mg PO TID [facility] Stop: 06/05/21 20:59 Last Admin: 05/06/21 21:13 Dose: 25 mg Documented by: Lisinopril (Lisinopril 40 Mg Tab) 40 mg PO [facility] Stop: 06/01/21 10:59 Last Admin: 05/04/21 16:14 Dose: Not Given Documented by: Metoprolol Tartrate (Metoprolol Tartrate 1 Mg/Ml Vial) 2.5 mg IV Q6 PRN PRN Reason: Systolic blood pressure greater than 185 Stop: 06/03/21 17:59 Last Admin: 05/06/21 00:02 Dose: 2.5 mg Documented by: Multivitamins/Minerals (Cerovite Adv Formula Tab) 1 tab PO [facility] Stop: 06/01/21 10:59 Last Admin: 05/06/21 07:30 Dose: 1 tab Documented by: Oxycodone/Acetaminophen (Oxycodone/Acetaminophen 5mg/325mg Tab) 1 - 2 tab PO Q4H PRN PRN Reason: Moderate Pain Stop: 05/18/21 12:48 Last Admin: 05/05/21 19:52 Dose: 1 tab Documented by: Pantoprazole Sodium (Pantoprazole 40 Mg Tab) 40 mg PO BID [facility] Stop: 06/01/21 10:59 Last Admin: 05/06/21 21:13 Dose: 40 mg Documented by: Thiamine HCl (Thiamine Hcl 100 Mg Tab) 100 mg PO QAM [facility] Stop: 06/05/21 08:59 Last Admin: 05/06/21 07:32 Dose: 100 mg Documented by: PG Care Time/CCT Total # of Minutes Spent Total Time Spent with Patient: Total time spent is greater than 50% in coordination of care (as documented) at patient's floor/unit and/or counseling patient: Coding Level of Care Code 24553 Subseq Hosp Care Lvl 3 Diagnoses Asystole I46.9 Acute CVA (cerebrovascular accident) I63.9 Aspiration of food T17.920A Hypertensive urgency I16.0 Renal artery stenosis I70.1 PAD (peripheral artery disease) I73.9 Carotid artery disease I65.23 Carotid artery disease type: stenosis Laterality: bilateral (1) Carotid artery disease Carotid artery disease type: stenosis Laterality: bilateral Qualified Code(s): I65.23 - Occlusion and stenosis of bilateral carotid arteries
[2021-05-07 07:04] LABS: Hematocrit (blood only) 33.2 % (37-47); Mean Corpuscular Hemoglobin 33.8 pg (25-34); Mean Corpuscular Hgb Conc 33.1 g/dL (32-36); Mean Corpuscular Volume 102.2 fL (80-100); Mean Platelet Volume 8.9 fL (7.4-10.4); Platelet Count 272 K/uL (130-400); RDW Coefficient of Variation 13.4 % (11.5-14.5); RDW Standard Deviation 50.9 fL (36.4-46.3); Red Blood Count 3.25 M/uL (4.2-5.4); White Blood Count 7.96 K/uL (4.8-10.8)
[2021-05-07 07:40] LABS: Creatinine Clr Calc Pharmacy 106.5 ml/min; Est GFR (African American) 129.6 ml/min; Est GFR (Non-African American) 111.8 ml/min; Magnesium 1.8 mg/dl (1.8-2.4); Phosphorus 2.9 mg/dl (2.5-4.9); Potassium 3.7 mmol/L (3.5-5.1)
--- NOTE | 2021-05-07 09:05 | Cardiology Progress Note ---
Date of Service May 07, 2021 Assessment & Plan (1) Asystole: (2) Stroke: (3) Hypertension: 1. Asystole: No additional episodes of slow heartbeat, pauses or heart block. It is very likely that the etiology of her intraoperative event was situational. During prior admission she did appear to have some sinus pauses during sleep. She has not had any concerning arrhythmias since her operation. She did not endorse other symptoms consistent with bradycardia leading up to her operation. Carvedilol has been re-initiated. In the absence of new symptoms or arrhythmias identified during hospitalization, I do not believe any additional evaluation or treatment is warranted. 2. Stroke: Some facial droop. Some difficulty swallowing. This appears to be improving. MRI scheduled. 3. Tobacco abuse Admission and Anticipated Discharge Date Admission Date: May 02, 2021 Subjective This morning the patient claims to be feeling better. Still some mild discomfo rt at her operative site in the right neck. Improved ability to eat. She feels that her swallowing is better. She states that she was ambulatory to the commode. She did not report symptoms of dizziness. Still somewhat weak and tired. Review of Systems Review of Systems: Per HPI Physical Exam Physical Exam: The patient is alert and oriented. Mood and affect appeared normal. He answered all questions appropriately. HEENT: anicteric sclera Neuro: Very mild Right facial droop. some difficulty with speech although not aphasia. Neck: Swelling and ecchymosis involving the surgical site in the right neck Lungs: Clear to auscultation bilaterally. He has good air movement without use of accessory muscles. No rales wheezes or rhonchi. some congestion in the upper airways. Cardiac: Heart demonstrates a regular rate and rhythm. Normal S1 and S2. No murmurs on examination. Extremities: There was no evidence of hypoperfusion. There is no cyanosis or clubbing. There is no edema. Results & Data ([facility]) Vital Signs (Past 12 Hours) Vital Signs Temp Pulse Resp BP Pulse Ox 05/07/21 07:42 36.6 C 102 H 20 129/72 93 05/07/21 03:00 36.8 C 97 H 20 176/70 H 90 05/06/21 22:42 36.6 C 82 20 123/53 L 93 Laboratory Results Abnormal Lab Results 05/07/21 05/07/21 06:26 06:26 WBC 7.96 RBC 3.25 L Hgb 11.0 L Hct 33.2 L MCV 102.2 H MCH 33.8 MCHC 33.1 RDW Std Deviation 50.9 H RDW Coeff of Odette 13.4 Plt Count 272 MPV 8.9 Sodium 134 L Potassium 3.7 Chloride 101 Carbon Dioxide 28 Anion Gap 6.0 BUN 11 Creatinine 0.39 L Est Cr Clr Drug Dosing 106.5 Est GFR ( Amer) 129.6 Est GFR (Non-Af Amer) 111.8 BUN/Creatinine Ratio 28.0 H Glucose 100 H Calcium 9.0 Phosphorus 2.9 Magnesium 1.8 PG Care Time/CCT Total # of Minutes Spent Total Time Spent with Patient: Total time spent is greater than 50% in coordination of care (as documented) at patient's floor/unit and/or counseling patient: Coding Level of Care Code 89875 Subseq Hosp Care Lvl 2 Diagnoses Asystole I46.9 Stroke I63.9 Hypertension I10 Hypertension type: essential hypertension (1) Hypertension Hypertension type: essential hypertension Qualified Code(s): I10 - Essential (primary) hypertension
[2021-05-07] MEDS: CEROVITE ADV FORMULA TAB PO SCH (09:38)
[2021-05-07] MEDS: THIAMINE HCL 100 MG TAB PO SCH (09:38)
[2021-05-07] MEDS: ASPIRIN 81 MG ECTAB PO SCH (09:38)
[2021-05-07] MEDS: PANTOprazole 40 MG TAB PO SCH (09:38)
[2021-05-07] MEDS: hydrALAZINE HCL 25 MG TAB PO SCH (09:38)
[2021-05-07] MEDS: guaiFENesin 600 MG TABCR PO SCH (09:38)
[2021-05-07] MEDS: amLODIPine BESYLATE 5 MG TAB PO SCH (09:38)
[2021-05-07] MEDS: CLOPIDOGREL BISULFATE 75 MG TAB PO SCH (09:39)
[2021-05-07] MEDS: ATORVASTATIN 40 MG TAB PO SCH (09:39)
[2021-05-07] MEDS: FOLIC ACID 1 MG TAB PO SCH (09:39)
[2021-05-07] MEDS: COLLAGENASE OINT 30 GM TUBE TOP SCH (09:39)
--- NOTE | 2021-05-07 10:17 | Discharge Summary ---
Date of Service May 07, 2021 Admission HPI Per Admitting Provider Assessment & Plan (1) Carotid artery stenosis: Due to the severe stenosis present would recommend an elective CEA of the right carotid artery. I have discussed the risks options and benefits of the procedure with the patient. The patient understands the risks options and benefits and agrees to the procedure. She may be d/c'd from our standpoint on ASA and plavix. We will contact her to schedule her carotid endart. Thank you very much for letting us participate in the care of this patient. Laterality: right Qualified Code(s): I65.21 - Occlusion and stenosis of right carotid artery (2) Renal artery stenosis: Would follow this conservatively at this point. Would attempt to treat if her pressure is uncontrolled with 4 meds or she is showing signs of renal insufficiency. (3) Peripheral artery disease: this is being treated by Dr. Dias (4) AAA (abdominal aortic aneurysm) without rupture: We will order an ultrasound as an outpatient for follow up of this small saccular infrarenal aortic aneurysm. History of Present Illness Reason for Consultation: Severe right internal carotid artery stenosis Attending Physician: Brayden Meyer History of Present Illness This is 65-year-old female with a history of peripheral vascular occlusive disease with a right lower extremity intervention recently. She also has a history of COPD and hypertension. While at home she developed an episode of dizziness. This did not resolve. When she reached a point of becoming lightheaded and having a feeling of passing out, she went to the emergency room. She was admitted at that time. CT angiogram revealed 90% narrowing of her right internal carotid artery had a 60 to 70% narrowing of her left internal carotid artery. Principal Diagnosis Carotid artery stenosis, s/p CEA Asystole Acute left basal ganglia stroke Hypertension Peripheral vascular disease Discharge Exam Constitutional WD/WN, vitals as above + thin Neck trachea midline, no thyromegaly (right CEA incision, dressing intact) Respiratory normal respiratory effort, lungs clear to auscultation Cardiovascular RRR, no murmur, no edema Gastrointestinal (Abdomen) normal bowel sounds, soft, nontender, no hepatosplenomegaly Musculoskeletal no cyanosis or clubbing, extremities motor strength 5/5 Skin no rashes, warm and dry + wound (wounds on toes, dry) and + dry skin; no rashes Neurologic patellar DTR's 2+ bilat, sensation intact and PERRL, EOMI, accommodation nl, no face palsy, no dysarthria Psychiatric A+Ox3, euthymic affect Discharge Data Allergies Allergy/AdvReac Type Severity Reaction Status Date / Time No Known Allergies Allergy Mild Verified 05/02/21 06:42 Consultations 05/02/21 10:14 Consult Hospitalist Routine 05/03/21 13:[address] Scan Technologist Routine 05/04/21 12:49 Consult Cardiology Routine 05/05/21 09:15 Consult Neurology Routine Procedures Performed Operation Date: 05/02/21 08:00 <No data on this case meets the specified criteria> Operation Date: 05/04/21 07:30 Actual Procedures p Right Carotid Endarterectomy(Right) - Cash Baker MD Ordered Studies 05/03/21 14:46 US point of care ultrasound Urgent 05/04/21 16:18 CT head/brain wo con Urgent 05/07/21 08:00 MR brain wo/w con Urgent Hospital Course (1) Asystole: happened intra-operatively no further episodes, unclear etiology appreciate cardiology consult, no indication for pacemaker monitor on tele okay to use Coreg 12.5mg BID (2) Acute CVA (cerebrovascular accident): left basal ganglia, likely from asystole episode causing hypoperfusion consult neurology plan for MRI brain, can be done as outpatient once recovered from CEA, patient has claustrophobia CT brain showed the acute stroke aspirin 81mg daily and Plavix 75mg daily better blood pressure control - Norvasc 10mg daily added while here, continue Lisinopril 40mg and Coreg 12.5mg BID statin therapy - Lipitor 40mg glucose control - no history of DM, sugars all < 200 (3) Aspiration of food: consult speech - eating better the further she gets from time of stroke, no major issues past three days (4) Hypertensive urgency: resolved shortly after admission pressures 190's 05/06, need to resume Lisinopril and Coreg (5) Renal artery stenosis: Cr is normal BP continues to be high intermittently (6) PAD (peripheral artery disease): Patient is on aspirin and Plavix, continue this per vascular (7) Carotid artery disease: Right CEA done today, 05/04 found to have stroke afterwards, see above (8) Right foot ulcer: wounds on toes d/c instructions provided by tube mill operator apply Santyl to medial 1st toe apply Aquacel AG to lateral 5th toe keep other wounds open to air strongly recommend follow up with wound clinic monitor for any signs of infection - redness, red streaks up foot, fever, foul odor, drainage Total Time Total Time Spent Total Time Spent (In Minutes): 32 Total Time Includes: Examination of the Patient, Discharge Planning and Medication Reconciliation Discharge Plan Discharge Items Patient Disposition: Home - Self-Care Reason For Visit: Right Carotid Artery Stenosis Discharge Diagnosis: Right carotid artery stenosis, s/p carotid endarterectomy on 05/04/21 Asystole while in the OR Acute left basal ganglia stroke Severe peripheral vascular disease Hypertension Condition on Discharge: Good Goals: follow up with Dr. Baker next week follow up with PCP next week Activity: Per Instructions section Bathing: Keep incision dry Exercise/Sports: Gradually increase as tolerated Driving/Machine Use: Resume 3 days after discharge Weightbearing: Full weightbearing Non-emergency contact: Primary Care Provider Call non-emergency contact if: you have any medication questions Follow-up/Referrals: Go Landeros CRNP [Primary Care Provider] - (one week) Cash Baker MD [Physician] - (1-2 weeks, follow up endarterectomy, staple removal) Diet: Heart Healthy Addtl Attending Provider Instructions: Medications: - NORVASC: 10mg daily, this is new blood pressure medication, take every morning - PERCOCET: take as needed for pain with surgery - THIAMINE and FOLATE: can obtain over the counter, recommend you take these daily for nutrition/supplement Carotid disease, s/p carotid endarterectomy on 05/04 complicated by brief episode of asystole in the OR, lasted 30-40 seconds, caused acute stroke in left basal ganglia recovering well please continue on aspirin and Plavix for vascular disease and continue on Lipitor to stabilize plaques continue to control blood pressure, you NEED to take your medications as prescribed take Lisinopril 40mg daily, Coreg 12.5mg twice a day and the new medication Norvasc 10mg daily follow up with Dr Baker's office and follow up with your PCP for your wounds on your toes, here are the instructions from wound care nurse to right medial (inside) 1st toe - clean with saline, apply nickel thick layer of Santyl to cover wound bed, cover with 2x2 and secure with Optifoam, apply every day to lateral (outside) 5th toe - clean with saline, cover with Aquacel Ag and secure with Optifoam, change every other day and as needed, report any signs of infection to doctor (redness, fever, foul smell) to tips of 1st and 2nd toe - leave open to room air suggest follow up at wound care center, please call [phone] 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 Incision Care: * You may shower, but do not rub incision. You may let the warm soapy water run over it. Be sure to dry the incision well after bathing. * Do not shave directly over the incision until it is healed. * DO NOT IMMERSE THE INCISION IN A TUB/POOL/etc. UNTIL HEALED. Restrictions: * Do not drive for at least one week or if you are still taking any narcotic pain medication. * Do not lift anything heavier than a gallon of milk for one week after going home. Possible Complications: * Numbness - It is normal to have some numbness around the incision. Numbness can extend beyond the incision to areas of the neck, ear and face. The numbness is due to bruising of nerves during the surgery and will gradually improve over a period of months. * Hoarseness/Difficulty Speaking and Swallowing - The bruising of nerves in the neck can also cause a hoarse voice, difficulty speaking or swallowing. This may improve over time, HOWEVER, if it continues for more than a few days please contact our office ([phone]). * Excessive Swelling - There will be some swelling immediately after surgery which usually resolves within one week. If you notice that the swelling is getting worse, notify your surgeon ([phone]). * Drainage/Bleeding - If there is any drainage or bleeding, it should be a very small amount (less than a teaspoon per day). If you have excessive bleeding or drainage from the incision, call your surgeon ([phone]) right away. ACTIVATION OF EMERGENCY MEDICAL SYSTEM: Call 911, immediately, if you experience any of the following: Warning Signs and Symptoms of Stroke: * Sudden numbness or weakness of the face, arm or leg, especially on one side of the body * Sudden confusion, trouble speaking or understanding * Sudden trouble seeing in one or both eyes * Sudden trouble walking, dizziness, loss of balance or coordination * Sudden severe headache with no cause Do not delay calling 911 if you experience any warning signs or symptoms of a stroke. Delay in seeking medical attention may affect what treatments can be given to you. Risk Factors for Stroke: You can reduce your chances of stroke by working with your medical provider to adopt a healthy lifestyle. Some specific ways to lower your chance of stroke are: * If you are a smoker, now is the time to stop smoking cigarettes * If you are diabetic, improve the control of your blood sugars * Avoid excessive amounts of alcohol * Control high blood pressure * Lose weight if you are overweight * Be sure to lead an active lifestyle * Eat a healthy diet low in salt, cholesterol and fat You should know about other risk factors for stroke that you are unable to control. These include: * Age 55 years or older * Male gender * Certain racial groups: , or / * Family History of Stroke, Mini stroke or Heart Attack * Sickle Cell Disease You will be receiving a call from the Vascular Surgery Nurse after you are discharged. FOLLOW UP VISIT: It is important for you to keep your follow up appointments with your medical provider. Keep any scheduled doctor appointments. Pending Studies at Discharge: No Stand-Alone Forms: My [facility] [employer], Smoking Cessation Medications and DC Order Prescriptions: New amlodipine [Norvasc] 5 mg Tablet 10 mg PO QAM Qty: 60 RF: 3 oxycodone-acetaminophen [Percocet] 5-325 mg Tablet 1 tab PO Q4H PRN (Reason: pain) Qty: 20 RF: 0 folic acid 1 mg Tablet 1 mg PO QAM 30 Days Qty: 30 RF: 0 thiamine HCl (vitamin B1) [Vitamin B-1] 100 mg Tablet 100 mg PO QAM 30 Days Qty: 30 RF: 0 Continued pantoprazole [Protonix] 40 mg tablet,delayed release (DR/EC) 40 mg PO BID Qty: 60 RF: 2 lisinopril 40 mg tablet 40 mg PO QAM Qty: 90 RF: 2 aspirin 81 mg Tablet,Delayed Release (Dr/Ec) 81 mg PO QAM Qty: 90 RF: 1 clopidogrel 75 mg Tablet 75 mg PO QAM Qty: 30 RF: 3 vyhlaxmmldxp-hdrytwwu-[id number] Tablet 1 tab PO QAM RF: 0 Santyl 250 unit/gram ointment 1 applic topical QAM RF: 0 carvedilol 12.5 mg Tablet 12.5 mg PO BID Qty: 60 RF: 0 acetaminophen [Tylenol Extra Strength] 500 mg Capsule 500 - 1,000 mg PO Q6H PRN (Reason: Pain) RF: 0 atorvastatin 40 mg tablet 40 mg PO QAM RF: 0 Discharge Orders: Discharge Order (Routine); Ordered 05/07/21 Ordered By: Ezra Kruse Admission Data Admit Date/Time: 05/02/21 07:34 Attending Provider: Ezra Kruse Admit Provider: Cash Baker Primary Care Provider: Go Landeros Other Providers: Ezra Kruse ; Eva Inman ; Irving Kelly ; Gregor Brand ; Kvng Baig ; Roland Dueñas ; Rishabh Dotson ; Luiz Landeros Jr ; Aurelio Lobo ; Mila Vallejo ; Marion Patrick ; Andrew Dias ; Andrew Ceballos ; Hussein Henry ; Betito Brito ; Wendy Deutsch ; Gamal Chand ; Chi Hogan Michael K. ; Neftali Tam Coding Level of Care Code D/C Day Management >30 mins Diagnoses Asystole I46.9 Acute CVA (cerebrovascular accident) I63.9 Aspiration of food T17.920A Hypertensive urgency I16.0 Renal artery stenosis I70.1 PAD (peripheral artery disease) I73.9 Carotid artery disease I65.23 Carotid artery disease type: stenosis Laterality: bilateral Right foot ulcer L97.519 Non-pressure ulcer stage: unspecified non-pressure ulcer stage
== END 2021-05-07 13:30 | disposition home or self-care (01) | DRG 37 ==
LOC: ASU 06:16 → SUATTDRO 07:34 → 2E 07:34 → 1E 05-03 08:51 → 2E 05-05 17:53

== ENCOUNTER 2021-05-07 19:18 | Inpatient (IN) ==
[2021-05-07] MEDS ORDERED: SODIUM CHLORIDE 0.9% 1000ML 1,000 ML IV SCH (19:30)
[2021-05-07] MEDS ORDERED: OPTIRAY 320 125ml IV ONE (19:31)
[2021-05-07 19:46] LABS: Basophils # (auto) 0.02 K/uL (0-0.2); Basophils % (auto) 0.2 %; Eosinophils # (auto) 0.03 K/uL (0-0.5); Eosinophils % (auto) 0.3 %; Hematocrit (blood only) 29.4 % (37-47); Immature Granulocytes # (auto) 0.03 K/uL (0.00-0.02); Immature Granulocytes % (auto) 0.3 %; Lymphocytes # (auto) 0.68 K/uL (1.2-3.4); Lymphocytes % (auto) 5.7 %; Mean Corpuscular Hemoglobin 33.7 pg (25-34); Mean Platelet Volume 8.9 fL (7.4-10.4); Monocytes # (auto) 1.15 K/uL (0.11-0.59); Monocytes % (auto) 9.6 %; Neutrophils # (auto) 10.02 K/uL (1.4-6.5); Neutrophils % (auto) 83.9 %; Platelet Count 284 K/uL (130-400); RDW Coefficient of Variation 13.4 % (11.5-14.5); RDW Standard Deviation 48.3 fL (36.4-46.3); Red Blood Count 2.97 M/uL (4.2-5.4); White Blood Count 11.93 K/uL (4.8-10.8)
[2021-05-07 19:49] LABS: INR 0.9 (0.9-1.1); Partial Thromboplastin Ratio 0.8; Prothrombin Time 9.3 Seconds (9.0-12.0)
[2021-05-07 20:05] LABS: Alanine Aminotransferase 26 U/L (12-78); Albumin Globulin Ratio 0.8 (0.9-2); Albumin Level 3.1 gm/dl (3.4-5.0); Alkaline Phosphatase 82 U/L (45-117); Aspartate Aminotransferase 20 U/L (15-37); BUN Creatinine Ratio 37.3 (10-20); Bilirubin,Total 0.4 mg/dl (0.2-1); Blood Urea Nitrogen 23 mg/dl (7-18); Calcium 9.4 mg/dl (8.5-10.1); Carbon Dioxide 27 mmol/L (21-32); Chloride 98 mmol/L (98-107); Creatinine Clr Calc Pharmacy 73.5 ml/min; Est GFR (African American) 111.2 ml/min; Globulin 3.9 gm/dl (2.5-4.0); Glucose 191 mg/dl (70-99); Magnesium 1.9 mg/dl (1.8-2.4); Potassium 4.1 mmol/L (3.5-5.1); Sodium 131 mmol/L (136-145); Troponin I < 0.015 ng/ml (0-0.045)
--- NOTE | 2021-05-07 20:10 | CT Scan Report ---
CT angio head wo/w CT DOSE: 1156.57 mGy.cm CLINICAL HISTORY: CVA TECHNIQUE: A dose lowering technique was utilized adhering to the principles of ALARA. COMPARISON STUDY: May 04, 2021 and March 30, 2021 FINDINGS: No acute intracranial hemorrhage, no midline shift or space occupying lesions seen. Previously seen i ll-defined hypoattenuating lesion within left basal ganglia slightly decreased in size and now measur ing 1.8 cm. Hallman-white matter differentiation is preserved. Mild diffuse atrophic changes of brain parenchyma. Ventricles are midline, of normal size and configuration. No acute depressed skull fractures seen. Visualized paranasal sinuses and mastoid air cells are paten t and well-aerated. On CT angiogram evaluation of the intracranial vessels there is interval development of diffuse segme nt narrowing of the left internal carotid artery within its distal extracranial, petrous, cavernosal and supraclinoid aspect. Supraclinoid aspect of the left ICA and M1 segment of the left MCA are diffusely narrowed which is ne w since prior. Distal branches of the right and left MCA are patent. Bilateral GREGORIA and anterior communicating arteries are patent however appears slightly more narrowed w hen compared to prior study. Distal aspect of bilateral vertebral arteries are well-opacified. Basilar artery is patent. Bilateral posterior cerebral arteries are well opacified. IMPRESSION: 1. Interval development of diffuse narrowing of the left ICA within its visualized extracranial, pet kamala and clinoid portion. Findings will be sent to emergency Department at the time of this dictation . 2. Interval development of mild narrowing of the M1 segment of the left MCA and diffuse narrowing of bilateral GREGORIA and anterior communicating arteries. 3. Mild interval decrease in size of large hypoattenuating lesion/infarct within left basal ganglia. No acute intracranial hemorrhage is seen. ACT 112: Negative or not required by law. The above report was generated using voice recognition software. It may contain grammatical, syntax o r spelling errors. Electronically signed by: Kacy Quinonez DO 05/07/2021 8:09 PM
--- NOTE | 2021-05-07 20:26 | CT Scan Report ---
CT angio neck with con CLINICAL HISTORY: CVA, s/p R CEA COMPARISON STUDY: No previous studies for comparison. TECHNIQUE: CT angiography was performed from the aortic arch to the skull base. MIP imaging was perfo rmed. The patient was scanned in a dynamic helical fashion during intravenous administration of 118 c c of Optiray. A dose lowering technique was utilized adhering to the principles of ALARA. CT DOSE: Technique: CT angiogram of the carotid and vertebral arteries was obtained using intravenous contrast and 3-D reconstruction. NASCET criteria was utilized. 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 Minimal reconst itution of the floor is seen within proximal aspect of the left internal carotid artery, left interna l carotid artery appears significantly narrowed throughout its course which is new since prior study. Right common carotid artery is well opacified. Previously seen heavily calcified plaque with significant stenosis of the proximal right internal car otid artery is improved with mild interval decrease in calcification in improved patency of the lumen . There is areas of gas collection is seen within surrounding soft tissue as well as skin blayne lik inga representing changes from recent right carotid endarterectomy. Bilateral vertebral arteries are patent throughout its course without evidence of focal occlusion or significant stenosis. 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 Findings will be called to emergency department at the time of this dictation. Mild diffuse narrowing of the left internal carotid artery is new since prior study. Interval improvement of luminal narrowing within proximal aspect of the right internal carotid artery after right endarterectomy. Postoperative changes are seen within right neck soft tissue as detailed above. ACT 112: Negative or not required by law. The above report was generated using voice recognition software. It may contain grammatical, syntax o r spelling errors. Electronically signed by: Kacy Quinonez DO 05/07/2021 8:25 PM
--- NOTE | 2021-05-07 21:08 | History & Physical Report ---
Date of Service May 07, 2021 Assessment & Plan (1) Acute CVA (cerebrovascular accident): 65 yo F Hx cigarette smoking, AAA, COPD, HTN, recent left-sided CVA after right CEA, alcohol use admitted after stroke alert for ? CVA. ? repeat CVA, recent Hx right CEA, HTN: - Recently admitted for elective right CEA that was performed on 05/04/21. - During previous admission developed acute left basal ganglia stroke thought to be secondary to brief cardiac arrest during during right CEA procedure. - Discharged earlier today on aspirin, Plavix, HTN control, atorvastatin 40mg daily. - Presented to ER with right sided weakness, worsening dysarthria/facial droop for several hours. - Head CT, CTA Head and Neck performed which showed interval development of narrowing/occlusion of the left common carotid artery, left ICA, M1 segment of the left MCA, and diffuse narrowing of bilateral GREGORIA and anterior communicating arteries. - TPA contraindicated given recent CVA and recent right CEA. - MRI ordered. Lipid panel and A1c with AM labs. - Continue atorvastatin at 40mg daily dosing, pending lipid panel. - Again recommended smoking cessation given continued clot formation despite optimization of other risk factors. - Holding antihypertensives at this time unless BP <220/120. Resume per day team and Neuro recs. - Unclear if patient is aspirin/Plavix resistant, may consider switching to Aggrenox. Will hold anti-platelet for now given petechial hemorrhage noted on MRI - Neuro consulted. - PT/OT/Speech therapy consults. NPO until swallow evaluation performed by nursing. - Unclear if will need rehab on discharge. Case Management consulted. COPD with emphysema: - History of, not on any inhalers in outpatient setting. - Saturating well on room air. - Follow up with PCP regarding PFTs, Pulmonology evaluation. GERD: - Continue pantoprazole. Right foot wound, peripheral vascular disease: - Known right foot wounds. - No fevers, WBC count 11.93; repeat in AM. - Wound care per nursing. - Irene Prather. Code Status: FULL CODE FEN: NPO until completes swallow evaluation; then Heart Healthy diet DVT ppx: SCDs Dispo: Telemetry (2) Hypertension: (3) S/P carotid endarterectomy: (4) Tobacco abuse: (5) Alcohol use: (6) COPD with emphysema: History of Present Illness Chief Complaint: right sided weakness, dysarthria Primary Care Provider: LAKSHMI Garza 65 yo F Hx cigarette smoking, AAA, COPD, peripheral vascular disease with chronic nonhealing wounds, HTN, recent left-sided CVA after right CEA, alcohol use presented to ER as stroke alert for right sided weakness and worsening facial droop starting around 6pm. Patient was discharged earlier today after elective right CEA; during that admission she had brief cardiac arrest during surgery and left basal ganglia CVA. She was discharged on asa and Plavix. Patient is a current 1 PPD smoker. She denies SOB, chest pain, nausea or vomiting, fevers or chills. In the ER patient did not receive TPA despite being in appropriate window (contraindicated due to recent CVA and right CEA). Imaging in ER showed development in occlusions in left ICA, left common carotid artery, and left MCA. Hospitalist service consulted for admission. Allergies Allergy/AdvReac Type Severity Reaction Status Date / Time No Known Allergies Allergy Mild Verified 05/07/21 20:20 Home Medications Medication Instructions Recorded Confirmed Type aspirin 81 mg PO QAM #90 tab 04/01/21 05/07/21 Rx clopidogrel 75 mg PO QAM #30 tab 04/01/21 05/07/21 Rx Santyl 1 applic TOPICAL QAM 04/08/21 05/07/21 History osgwygeazxsw-rubsappi-rrrnch 1 tab PO QAM 04/08/21 05/07/21 History pantoprazole 40 mg tablet,delayed 40 mg PO BID #60 tab 04/11/21 05/07/21 Rx release lisinopril 40 mg tablet 40 mg PO QAM #90 tab 04/25/21 05/07/21 Rx acetaminophen 500 - 1,000 mg PO Q6H PRN 04/28/21 05/07/21 History atorvastatin 40 mg PO QAM 04/28/21 05/07/21 History amlodipine [Norvasc] 10 mg PO QAM #60 tab 05/07/21 05/07/21 Rx carvedilol 25 mg PO BID 05/07/21 05/07/21 History folic acid 1 mg PO QAM 30 Days #30 tab 05/07/21 05/07/21 Rx hydralazine 25 mg PO TID 05/07/21 05/07/21 History oxycodone-acetaminophen [Percocet] 1 tab PO Q4H PRN #20 tab 05/07/21 05/07/21 Rx thiamine HCl (vitamin B1) [Vitamin 100 mg PO QAM 30 Days #30 tab 05/07/21 05/07/21 Rx B-1] Past Med/Surg History Medical History AAA (abdominal aortic aneurysm) 16mm x 7mm sacular aneurysm of infrarenal abdominal aorta per 01/22/21 CT scan Alcohol use 3-4 beers daily per nursing assessment Alcohol abuse per records Carotid artery disease COPD with emphysema Per records Dizziness Recently admitted 03/30/21-04/01/21 Possibly related to HTN GERD (gastroesophageal reflux disease) UNDER CONTROL Hypertension Hypertensive urgency Ischemic ulcer of right foot Follows with Wound Clinic Left renal mass Left side- per 04/15/21 MRI= 1.6 x 1.0 cm or slightly exophytic focus within the lateral aspect of the left kidney.- worrisome for RCC per records- pt will follow up as outpatient PAD (peripheral artery disease) S/p stent to right LE February 2021 with [facility] Bilateral iliac artery stenosis Renal artery stenosis Per CT scan 12/[address] Baker Surgical History H/O exploratory laparotomy (01/22/21) Exploratory laparotomy, oversew perforated duodenal ulcer, abdominal washout. Dr. Craig 01/22/2021 H/O tubal ligation H/O vascular surgery 2 stents to right leg [facility] February 2021 History of colonoscopy [place] teeth extracted Family History Mother , age 70 of lung cancer Diabetes Lung cancer Hypertension Father , age 52 of complications of vascular surgery. Lung cancer PAD (peripheral artery disease) Denies family history of Ovarian cancer Prostate cancer Myocardial infarction Breast cancer Colorectal cancer Social History Smoking Status: Current every day smoker Tobacco Type: Cigarettes Age Started Using Tobacco: 27; packs per day: 1; Cigarettes Per Day: 20; Second Hand Exposure: No; Do You Dip or Chew Tobacco: No; Tobacco Cessation Education Requested by Patient: No Hx Alcohol Use: Yes Alcohol type: beer Alcohol Intake Frequency: 4 or More x per/Week Alcohol Intake Frequency Comment: 2-3 beers daily or more Hx Substance Use: No Preferred Language: Kittitian Communication Ability: Effective Visual Impairment: Limited Hearing Ability: Normal Relocation Associate Required: No Beliefs That Will Affect Care: None marital status: Current Living Situation: Spouse current occupational status: employed current occupation: [employer] How many Children do You have: 2 Other Information That Helps Us Care for You: No Feels Safe at Home: Yes Safety Concerns: Feels Safe At This Time Childhood Exposure to Second-Hand Smoke: Yes caffeine: Yes during the past year weight has: remained stable Dental Care, Regularly: No Physical Activity Frequency: Does not Exercise Physical Activity Frequency Comment: on feet at work all day Seatbelt Use: always Sunscreen Use: No Assistive Devices: Denture - Upper, Denture - Lower and Glasses Assistive Devices Comment: lower partial plate Review of Systems Review of Systems: All systems reviewed & are unremarkable except as noted in HPI & below Constitutional: no fever, no chills and no malaise Respiratory: no cough and no dyspnea Cardiovascular: no chest pain, no palpitations and no edema Gastrointestinal: no abdominal pain, no constipation and no diarrhea/loose stools Genitourinary: no dysuria and no hematuria Physical Exam Constitutional: WD/WN, vitals as above Eyes: PERRL, conjunctivae normal, anicteric sclerae ENMT: external ear and nose normal, oropharynx normal Neck: normal visual inspection Respiratory: normal respiratory effort, lungs clear to auscultation Cardiovascular: RRR, no murmur, no edema Gastrointestinal (Abdomen): normal bowel sounds, soft, nontender, no hepatosplenomegaly Musculoskeletal: no cyanosis or clubbing, extremities motor strength 5/5 Skin: no rashes, warm and dry right neck with blayne in place s/p CEA; also wounds noted on toes no worsening compared to wound images 05/05/21 Neurologic: AAOx3, mild dysarthria. LEFT pupil noted to be larger and less reactive as compared to right. RIGHT nasolabial fold flattening noted. When smiling, patient has LEFT facial droop. No motor or sensory deficits of bilateral UE or LE. Sensation intact bilateral upper and lower face. Psychiatric: A+Ox3, euthymic affect Results & Data Results & Data ([facility]) Vital Signs (Past 12 Hours) Vital Signs Temp Pulse Resp BP Pulse Ox 05/07/21 21:01 74 18 94 05/07/21 20:42 79 10 L 139/66 94 05/07/21 20:06 83 13 150/67 H 91 05/07/21 19:42 36.5 C 83 16 177/81 H 93 05/07/21 19:40 83 15 177/81 H 93 05/07/21 19:34 180/61 H Laboratory Results Laboratory Results WBC 11.93 K/uL (4.8-10.8) H 05/07/21 Unknown RBC 2.97 M/uL (4.2-5.4) L 05/07/21 Unknown Hgb 10.0 g/dL (12.0-16.0) L 05/07/21 Unknown Hct 29.4 % (37-47) L 05/07/21 Unknown MCV 99.0 fL (80-100) 05/07/21 Unknown MCH 33.7 pg (25-34) 05/07/21 Unknown MCHC 34.0 g/dL (32-36) 05/07/21 Unknown RDW Std Deviation 48.3 fL (36.4-46.3) H 05/07/21 Unknown RDW Coeff of Odette 13.4 % (11.5-14.5) 05/07/21 Unknown Plt Count 284 K/uL (130-400) 05/07/21 Unknown MPV 8.9 fL (7.4-10.4) 05/07/21 Unknown Immature Gran % (Auto) 0.3 % 05/07/21 Unknown Neut % (Auto) 83.9 % 05/07/21 Unknown Lymph % (Auto) 5.7 % 05/07/21 Unknown Jefferson % (Auto) 9.6 % 05/07/21 Unknown Eos % (Auto) 0.3 % 05/07/21 Unknown Baso % (Auto) 0.2 % 05/07/21 Unknown Neut # (Auto) 10.02 K/uL (1.4-6.5) H 05/07/21 Unknown Lymph # (Auto) 0.68 K/uL (1.2-3.4) L 05/07/21 Unknown Jefferson # (Auto) 1.15 K/uL (0.11-0.59) H 05/07/21 Unknown Eos # (Auto) 0.03 K/uL (0-0.5) 05/07/21 Unknown Baso # (Auto) 0.02 K/uL (0-0.2) 05/07/21 Unknown Immature Gran # (Auto) 0.03 K/uL (0.00-0.02) H 05/07/21 Unknown PT 9.3 Seconds (9.0-12.0) 05/07/21 Unknown INR 0.9 (0.9-1.1) 05/07/21 Unknown APTT 22.0 Seconds (21.0-31.0) 05/07/21 Unknown PTT Ratio 0.8 05/07/21 Unknown Sodium 131 mmol/L (136-145) L 05/07/21 Unknown Potassium 4.1 mmol/L (3.5-5.1) 05/07/21 Unknown Chloride 98 mmol/L (98-107) 05/07/21 Unknown Carbon Dioxide 27 mmol/L (21-32) 05/07/21 Unknown Anion Gap 6.0 (3-11) 05/07/21 Unknown BUN 23 mg/dl (7-18) H D 05/07/21 Unknown Creatinine 0.62 mg/dl (0.6-1.2) 05/07/21 Unknown Est Cr Clr Drug Dosing 73.5 ml/min 05/07/21 Unknown Est GFR ( Amer) 111.2 ml/min 05/07/21 Unknown Est GFR (Non-Af Amer) 96.0 ml/min 05/07/21 Unknown BUN/Creatinine Ratio 37.3 (10-20) H 05/07/21 Unknown Glucose 191 mg/dl (70-99) H 05/07/21 Unknown Calcium 9.4 mg/dl (8.5-10.1) 05/07/21 Unknown Magnesium 1.9 mg/dl (1.8-2.4) 05/07/21 Unknown Total Bilirubin 0.4 mg/dl (0.2-1) 05/07/21 Unknown AST 20 U/L (15-37) 05/07/21 Unknown ALT 26 U/L (12-78) 05/07/21 Unknown Alkaline Phosphatase 82 U/L (45-117) 05/07/21 Unknown Troponin I < 0.015 ng/ml (0-0.045) 05/07/21 Unknown Total Protein 7.0 gm/dl (6.4-8.2) 05/07/21 Unknown Albumin 3.1 gm/dl (3.4-5.0) L 05/07/21 Unknown Globulin 3.9 gm/dl (2.5-4.0) 05/07/21 Unknown Albumin/Globulin Ratio 0.8 (0.9-2) L 05/07/21 Unknown COVID-19 Eval Order Covid19 at [facility] 05/07/21 19:45 SARS-CoV-2 (PCR) NEGATIVE (Negative) 05/07/21 19:45 Impressions Head CTA 05/07/21 19:20 CT angio head wo/w CT DOSE: 1156.57 mGy.cm CLINICAL HISTORY: CVA TECHNIQUE: A dose lowering technique was utilized adhering to the principles of PRAVEEN. COMPARISON STUDY: May 04, 2021 and March 30, 2021 FINDINGS: No acute intracranial hemorrhage, no midline shift or space occupying lesions seen. Previously seen ill-defined hypoattenuating lesion within left basal ganglia slightly decreased in size and now measuring 1.8 cm. Hallman-white matter differentiation is preserved. Mild diffuse atrophic changes of brain parenchyma. Ventricles are midline, of normal size and configuration. No acute depressed skull fractures seen. Visualized paranasal sinuses and mastoid air cells are patent and well-aerated. On CT angiogram evaluation of the intracranial vessels there is interval development of diffuse segment narrowing of the left internal carotid artery within its distal extracranial, petrous, cavernosal and supraclinoid aspect. Supraclinoid aspect of the left ICA and M1 segment of the left MCA are diffusely narrowed which is new since prior. Distal branches of the right and left MCA are patent. Bilateral GREGORIA and anterior communicating arteries are patent however appears slightly more narrowed when compared to prior study. Distal aspect of bilateral vertebral arteries are well-opacified. Basilar artery is patent. Bilateral posterior cerebral arteries are well opacified. IMPRESSION: 1. Interval development of diffuse narrowing of the left ICA within its visualized extracranial, petrous and clinoid portion. Findings will be sent to emergency Department at the time of this dictation. 2. Interval development of mild narrowing of the M1 segment of the left MCA and diffuse narrowing of bilateral GREGORIA and anterior communicating arteries. 3. Mild interval decrease in size of large hypoattenuating lesion/infarct within left basal ganglia. No acute intracranial hemorrhage is seen. ACT 112: Negative or not required by law. The above report was generated using voice recognition software. It may contain grammatical, syntax or spelling errors. Electronically signed by: Kacy Quinonez DO 05/07/2021 8:09 PM Neck CTA 05/07/21 19:20 CT angio neck with con CLINICAL HISTORY: CVA, s/p R CEA COMPARISON STUDY: No previous studies for comparison. TECHNIQUE: CT angiography was performed from the aortic arch to the skull base. MIP imaging was performed. The patient was scanned in a dynamic helical fashion during intravenous administration of 118 cc of Optiray. A dose lowering technique was utilized adhering to the principles of ALARA. CT DOSE: Technique: CT angiogram of the carotid and vertebral arteries was obtained using intravenous contrast and 3-D reconstruction. NASCET criteria was utilized. 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 Minimal reconstitution of the floor is seen within proximal aspect of the left internal carotid artery, left internal carotid artery appears significantly narrowed throughout its course which is new since prior study. Right common carotid artery is well opacified. Previously seen heavily calcified plaque with significant stenosis of the proximal right internal carotid artery is improved with mild interval decrease in calcification in improved patency of the lumen. There is areas of gas collection is seen within surrounding soft tissue as well as skin blayne likely representing changes from recent right carotid endarterectomy. Bilateral vertebral arteries are patent throughout its course without evidence of focal occlusion or significant stenosis. 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 Findings will be called to emergency department at the time of this dictation. Mild diffuse narrowing of the left internal carotid artery is new since prior study. Interval improvement of luminal narrowing within proximal aspect of the right internal carotid artery after right endarterectomy. Postoperative changes are seen within right neck soft tissue as detailed above. ACT 112: Negative or not required by law. The above report was generated using voice recognition software. It may contain grammatical, syntax or spelling errors. Electronically signed by: Kacy Quinonez DO 05/07/2021 8:25 PM MRI Brain - per STAT-rad: REdemonstrated subacute infarct involving the left caudate head, basal ganglia and external capsule. Multiple foci of petechial hemorrhage within the infarct. Small amount of contrast enhancement is consistent with subacute age. Minimal effacement of the frontal horn of the left lateral ventricle. No midline shift. More posteriorly in the left turner radiata white matter there is small hyperintense lesion on diffusion-weighted images with corresponding hypointensity on ADC map...suggestive of small nonhemorrhagic acute infarct without mass effect... Supervising Physician Co-Signing Physician Notes Patient seen and examined, chart reviewed, case discussed with Dr. Herrera and I agree with her assessment and plan as above. Briefly, patient is a 65yo female with history of tobacco use, PVD, HTN. She was recently admitted to [facility] on 05/02/21 with complaint of dizziness/pre-syncope. She had a CTA of the neck which revealed focal high-grade stenosis of proximal right ICA with > 90% luminal narrowing as well as 60% focal stenosis of proximal left ICA. Patient had an elective right CEA performed on 05/04/21 and suffered a brief intraoperative asystolic arrest lasting appx 30-40 seconds with subsequent ROSC after which she was noted to have right facial droop - she was subsequently diagnosed with an acute left basal ganglia lacunar ischemic CVA. Patient was ultimately discharged home on 05/07 on ASA and Plavix as well as Lipitor. She returns today with complaint of dysarthria as well as right-sided weakness. Patient offers no complaints On exam she is afebrile, HD stable, NAD Skin - intact, no rash HEENT - NC/AT, right pupil round and reactive, left pupil slightly enlarged 4mm sluggish, blayne in place from right CEA with surrounding bruising - wound is well approximated with no bleeding/drainage Heart - +S1/S2, regular, no m/r/g Lungs - CTA Abd - +BS, soft, NT/ND Ext - warm Neuro - mildly dysarthric, speech appropriate, Left pupil slightly larger 4mm and sluggishly reactive, flattening of right nasolabial fold at rest, ?slight facial droop on left with smiling, tongue midline, MS 5/5 Labs and images reviewed. WBC=11.93 Hgb=10 Hct=29.4 Pn=418 Zhw=653 CTA head - new narrowing of LEFT ICA MRI brain with multiple foci of petechial hemorrhage in the known left caudate/gasal ganglia infarct. Small acute infarct in left turner radiata. Assessment/Plan -Will hold antiplatelet for now. Remainder of CVA workup has been complete. -PT/OT/Speech -Neuro Resident Activity Tracking Resident Involvement: Resident Care Provided Care Provided: Adult Hospital Medicine (1) COPD with emphysema Emphysema type: unspecified Qualified Code(s): J43.9 - Emphysema, unspecified (2) Hypertension Hypertension type: essential hypertension Qualified Code(s): I10 - Essential (primary) hypertension
--- NOTE | 2021-05-07 21:50 | Emergency Department Note ---
History of Present Illness General Chief complaint: Stroke/CVA Symptoms Stated complaint: stroke alert Time Seen by Provider: 05/07/21 19:18 Source: patient, family (), EMS and RN notes reviewed Mode of arrival: EMS Limitations: clinical acuity History of Present Illness Provider complaint: Stroke symptoms This patient is a 65-year-old female who presents emergency department with complaints of strokelike symptoms that began at 6:00 this evening. Patient apparently noticed facial droop and difficulty speaking, patient had some right-sided weakness. called 911 at approximately 615. Patient was discharged earlier this morning from our facility. She had a right-sided carotid endarterectomy on the of this month. Patient states she has been taking her aspirin and Plavix. She does smoke 1 pack of cigarettes per day. She denies any falls or head injuries. Home Medications Medication Instructions Recorded Confirmed Type aspirin 81 mg PO QAM #90 tab 04/01/21 05/07/21 Rx clopidogrel 75 mg PO QAM #30 tab 04/01/21 05/07/21 Rx Santyl 1 applic TOPICAL QAM 04/08/21 05/07/21 History frqjgmmpxfkn-pcwuubbl-xyujtg 1 tab PO QAM 04/08/21 05/07/21 History pantoprazole 40 mg tablet,delayed 40 mg PO BID #60 tab 04/11/21 05/07/21 Rx release lisinopril 40 mg tablet 40 mg PO QAM #90 tab 04/25/21 05/07/21 Rx acetaminophen 500 - 1,000 mg PO Q6H PRN 04/28/21 05/07/21 History atorvastatin 40 mg PO QAM 04/28/21 05/07/21 History amlodipine [Norvasc] 10 mg PO QAM #60 tab 05/07/21 05/07/21 Rx carvedilol 25 mg PO BID 05/07/21 05/07/21 History folic acid 1 mg PO QAM 30 Days #30 tab 05/07/21 05/07/21 Rx hydralazine 25 mg PO TID 05/07/21 05/07/21 History oxycodone-acetaminophen [Percocet] 1 tab PO Q4H PRN #20 tab 05/07/21 05/07/21 Rx thiamine HCl (vitamin B1) [Vitamin 100 mg PO QAM 30 Days #30 tab 05/07/21 05/07/21 Rx B-1] Allergies Allergy/AdvReac Type Severity Reaction Status Date / Time No Known Allergies Allergy Mild Verified 05/07/21 20:20 Past Med/Surg History Medical History AAA (abdominal aortic aneurysm) 16mm x 7mm sacular aneurysm of infrarenal abdominal aorta per 01/22/21 CT scan Alcohol use 3-4 beers daily per nursing assessment Alcohol abuse per records Carotid artery disease COPD with emphysema Per records Dizziness Recently admitted 03/30/21-04/01/21 Possibly related to HTN GERD (gastroesophageal reflux disease) UNDER CONTROL Hypertension Hypertensive urgency Ischemic ulcer of right foot Follows with [facility] Left renal mass Left side- per 04/15/21 MRI= 1.6 x 1.0 cm or slightly exophytic focus within the lateral aspect of the left kidney.- worrisome for RCC per records- pt will follow up as outpatient PAD (peripheral artery disease) S/p stent to right LE February 2021 with [facility] Bilateral iliac artery stenosis Renal artery stenosis Per CT scan 12/[address] Baker Surgical History H/O exploratory laparotomy (01/22/21) Exploratory laparotomy, oversew perforated duodenal ulcer, abdominal washout. Dr. Craig 01/22/2021 H/O tubal ligation H/O vascular surgery 2 stents to right leg [facility] February 2021 History of colonoscopy [place] teeth extracted Family History Mother , age 70 of lung cancer Diabetes Lung cancer Hypertension Father , age 52 of complications of vascular surgery. Lung cancer PAD (peripheral artery disease) Denies family history of Ovarian cancer Prostate cancer Myocardial infarction Breast cancer Colorectal cancer Social History Smoking Status: Current every day smoker Tobacco Type: Cigarettes Age Started Using Tobacco: 27; packs per day: 1; Cigarettes Per Day: 20; Second Hand Exposure: No; Hx Alcohol Use: Yes Alcohol type: beer Alcohol Intake Frequency: 4 or More x per/Week Alcohol Intake Frequency Comment: 2-3 beers daily or more Hx Substance Use: No Preferred Language: Russian Communication Ability: Effective Visual Impairment: Limited Hearing Ability: Normal Night Shift Manager Required: No Beliefs That Will Affect Care: None marital status: Current Living Situation: Spouse current occupational status: employed current occupation: [employer] How many Children do You have: 2 Feels Safe at Home: Yes Childhood Exposure to Second-Hand Smoke: Yes caffeine: Yes during the past year weight has: remained stable Dental Care, Regularly: No Physical Activity Frequency: Does not Exercise Physical Activity Frequency Comment: on feet at work all day Seatbelt Use: always Sunscreen Use: No Assistive Devices: Oxygen - Continuous Review of Systems See HPI for pertinent positives & negatives. and A total of 10 systems reviewed and were otherwise negative Physical Exam Vital Signs Vital Signs - 24 hr 05/07/21 19:34 05/07/21 19:40 05/07/21 19:42 Temperature 36.5 C Temperature Source Oral Pulse Rate 83 83 Pulse Rate from SpO2 Sensor 83 Respiratory Rate 15 16 Blood Pressure 180/61 H 177/81 H 177/81 H Blood Pressure Mean 100 113 113 Pulse Oximetry 93 93 Oxygen Delivery Method Room Air Sepsis Recent Fever Within 48 Hours No Sepsis New/Unexplained Change in Mental Status N/A Sepsis Action Taken by Nursing No Action Required 05/07/21 20:06 05/07/21 20:42 05/07/21 21:01 Temperature Temperature Source Pulse Rate 83 79 74 Pulse Rate from SpO2 Sensor 80 78 74 Respiratory Rate 13 10 L 18 Blood Pressure 150/67 H 139/66 Blood Pressure Mean 94 90 Pulse Oximetry 91 94 94 Oxygen Delivery Method Sepsis Recent Fever Within 48 Hours Sepsis New/Unexplained Change in Mental Status Sepsis Action Taken by Nursing Vital signs reviewed. General: Chronically ill-appearing 65-year-old female, in no significant distress. HEENT: No scleral icterus, PERRLA, neck supple. Atraumatic. Positive right neck postsurgical change with ecchymosis and blayne intact. Cardiovascular: Regular rate and rhythm, no extra sounds. Pulmonary: Clear to auscultation bilaterally, normal work of breathing. Abdomen: Soft, nontender, nondistended, positive bowel sounds. Musculoskeletal: Atraumatic, no peripheral edema. Neurologic: Patient awake alert and oriented x 3, right sided nasolabial fold flattening, right sided tongue deviation, questionable mild left ataxia to [id number]. No significant pronator drift. Positive dysarthria. Skin: Warm, dry, no rash Course Administered Medications Atorvastatin Calcium (Atorvastatin 40 Mg Tab) 40 mg PO QAM [facility] Stop: 06/07/21 08:59 Last Admin: 05/08/21 08:04 Dose: Not Given Documented by: [id number] Collagenase (Collagenase Oint 30 Gm Tube) [facility] [place]: 06/07/21 08:59 Last Admin: 05/08/21 08:30 Dose: 1 appln Documented by: [id number] Folic Acid (Folic Acid 1 Mg Tab) [facility] [place]: 06/07/21 08:59 Last Admin: 05/08/21 08:04 Dose: Not Given Documented by: [id number] Pantoprazole Sodium (Pantoprazole 40 Mg Tab) 40 mg PO BID [facility] Stop: 06/07/21 08:59 Last Admin: 05/08/21 08:04 Dose: Not Given Documented by: [id number] Thiamine HCl (Thiamine Hcl 100 Mg Tab) [facility] [place]: 06/07/21 08:59 Last Admin: 05/08/21 08:04 Dose: Not Given Documented by: [id number] Discontinued Medications Gadobutrol (Gadobutrol 65ml Vial) 4.5 ml IV ONCE ONE Stop: 05/07/21 22:41 Last Admin: 05/07/21 22:41 Dose: 4.5 ml Documented by: [id number] Sodium Chloride (Nss 1000ml) 1,000 mls @ 100 mls/hr IV .Q10H [facility] Stop: 06/06/21 19:29 Last Infusion: 05/07/21 23:35 Dose: 0 mls/hr Documented by: [id number] Admin: 05/07/21 19:52 Dose: 100 mls/hr Documented by: [id number] Ioversol (Optiray 320 125ml) 118 ml IV ONCE ONE Stop: 05/07/21 19:32 Last Admin: 05/07/21 19:31 Dose: 118 ml Documented by: [id number] Critical Care Time Critical Care Time: Yes (32) I have personally spent 32 minutes of critical care time in the direct management of this patient. This was a life/limb threatening event. This 32 minutes is in excess of all separately billable procedures. Medical Decision Making Differential Diagnosis Infection, dehydration, metabolic abnormality, hypo/hyperglycemia, electrolyte disturbance, anemia, hypoxia, cardiac sources, intracerebral event, toxicologic, neurologic, as well as other pathologies. Medical Records Attestation: I reviewed the patient's medical records. Home Medications Current Medication List: was personally reviewed by me Laboratory Data Attestation: I reviewed the patient's lab results. Result diagrams: 05/08/21 06:54 05/08/21 06:54 Lab Results 05/07/21 05/07/21 Range/Units 19:45 19:45 COVID-19 Eval Order Covid19 at [facility] SARS-CoV-2 (PCR) NEGATIVE (Negative) Imaging Data Radiologist's Impression: Chest X-Ray 05/07/21 19:22 XR chest 1V portable HISTORY: 65 years-old Female Stroke Like Symptoms acute strokelike symptoms COMPARISON: Chest radiograph 05/04/2021 TECHNIQUE: Portable AP view of the chest FINDINGS: Surgical blayne of the right neck. Cardiomediastinal and hilar silhouettes are within normal limits. No pneumothorax, pleural effusion, airspace consolidation or overt pulmonary edema. The b ones of the chest appear grossly intact. IMPRESSION: No acute process. ACT 112: Negative or not required by law. The above report was generated using voice recognition software. It may contain grammatical, syntax or spelling errors. Electronically signed by: Earle Rankin M.D. 05/08/2021 7:39 AM Head CTA 05/07/21 19:20 CT angio head wo/w CT DOSE: 1156.57 mGy.cm CLINICAL HISTORY: CVA TECHNIQUE: A dose lowering technique was utilized adhering to the principles of ALARA. COMPARISON STUDY: May 04, 2021 and March 30, 2021 FINDINGS: No acute intracranial hemorrhage, no midline shift or space occupying lesions seen. Previously seen ill-defined hypoattenuating lesion within left basal ganglia slightly decreased in size and now measuring 1.8 cm. Hallman-white matter differentiation is preserved. Mild diffuse atrophic changes of brain parenchyma. Ventricles are midline, of normal size and configuration. No acute depressed skull fractures seen. Visualized paranasal sinuses and mastoid air cells are patent and well-aerated. On CT angiogram evaluation of the intracranial vessels there is interval development of diffuse segment narrowing of the left internal carotid artery within its distal extracranial, petrous, cavernosal and supraclinoid aspect. Supraclinoid aspect of the left ICA and M1 segment of the left MCA are diffusely narrowed which is new since prior. Distal branches of the right and left MCA are patent. Bilateral GREGORIA and anterior communicating arteries are patent however appears slightly more narrowed when compared to prior study. Distal aspect of bilateral vertebral arteries are well-opacified. Basilar artery is patent. Bilateral posterior cerebral arteries are well opacified. IMPRESSION: 1. Interval development of diffuse narrowing of the left ICA within its visualized extracranial, petrous and clinoid portion. Findings will be sent to emergency Department at the time of this dictation. 2. Interval development of mild narrowing of the M1 segment of the left MCA and diffuse narrowing of bilateral GREGORIA and anterior communicating arteries. 3. Mild interval decrease in size of large hypoattenuating lesion/infarct within left basal ganglia. No acute intracranial hemorrhage is seen. ACT 112: Negative or not required by law. The above report was generated using voice recognition software. It may contain grammatical, syntax or spelling errors. Electronically signed by: Kacy Quinonez DO 05/07/2021 8:09 PM Neck CTA 05/07/21 19:20 CT angio neck with con CLINICAL HISTORY: CVA, s/p R CEA COMPARISON STUDY: No previous studies for comparison. TECHNIQUE: CT angiography was performed from the aortic arch to the skull base. MIP imaging was performed. The patient was scanned in a dynamic helical fashion during intravenous administration of 118 cc of Optiray. A dose lowering technique was utilized adhering to the principles of ALARA. CT DOSE: Technique: CT angiogram of the carotid and vertebral arteries was obtained using intravenous contrast and 3-D reconstruction. NASCET criteria was utilized. 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 Minimal reconstitution of the floor is seen within proximal aspect of the left internal carotid artery, left internal carotid artery appears significantly narrowed throughout its course which is new since prior study. Right common carotid artery is well opacified. Previously seen heavily calcified plaque with significant stenosis of the proximal right internal carotid artery is improved with mild interval decrease in calcification in improved patency of the lumen. There is areas of gas collection is seen within surrounding soft tissue as well as skin blayne likely representing changes from recent right carotid endarterectomy. Bilateral vertebral arteries are patent throughout its course without evidence of focal occlusion or significant stenosis. 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 Findings will be called to emergency department at the time of this dictation. Mild diffuse narrowing of the left internal carotid artery is new since prior study. Interval improvement of luminal narrowing within proximal aspect of the right internal carotid artery after right endarterectomy. Postoperative changes are seen within right neck soft tissue as detailed above. ACT 112: Negative or not required by law. The above report was generated using voice recognition software. It may contain grammatical, syntax or spelling errors. Electronically signed by: Kacy Quinonez DO 05/07/2021 8:25 PM Chest X-Ray 05/07/21 19:22 XR chest 1V portable HISTORY: 65 years-old Female Stroke Like Symptoms acute strokelike symptoms COMPARISON: Chest radiograph 05/04/2021 TECHNIQUE: Portable AP view of the chest FINDINGS: Surgical blayne of the right neck. Cardiomediastinal and hilar silhouettes are within normal limits. No pneumothorax, pleural effusion, airspace consolidation or overt pulmonary edema. The b ones of the chest appear grossly intact. IMPRESSION: No acute process. ACT 112: Negative or not required by law. The above report was generated using voice recognition software. It may contain grammatical, syntax or spelling errors. Electronically signed by: Earle Rankin M.D. 05/08/2021 7:39 AM ECG Data Attestation: I personally reviewed and interpreted this ECG as follows: Indication: + weakness Rate (beats per minute): 83 Rhythm: + normal sinus ECG Intervals/blocks: + Normal QT-c ECG [place]: + Normal ECG ST segments: + Normal ST segments ECG Findings: + LVH and + Other (no PVC, no PAC) Blood Pressure Blood Pressure Findings: Elevated blood pressure Blood Pressure Disposition: further management by hospitalist [facility] Narrative This patient was evaluated and appeared to be in no significant distress but was having an acute stroke it appeared. Medical command was called from the field and a stroke alert was called. CT with CT angiogram of the head and neck was performed as above. There is significant occlusion of the left ICA but the postoperative right ICA appeared to be patent. The telestroke attending, Dr. Sullivan did evaluate the patient. She is a significant vasculopath but is not eligible for TPA due to her recent surgery. She does appear to be improving clinically with IV normal saline solution at 100ml/hr. She is on aspirin and Plavix. BP is reasonably stable. Dr. Sullivan has recommended assays to make sure she is therapeutically treated with aspirin and Plavix. Patient's case was discussed with Dr. Mireles of the hospitalist service who will evaluate the patient for further management. Patient was made aware of the plan and agrees. Impression & Plan Acute CVA (cerebrovascular accident), Tobacco abuse, Vasculopathy, H/O carotid endarterectomy Discharge Plan Visit Data Chief Complaint: Stroke/CVA Symptoms Stated Complaint: stroke alert ED Provider: Patricia Herrera Discharge Problem: Acute CVA (cerebrovascular accident), Tobacco abuse, Vasculopathy, H/O carotid endarterectomy Patient Disposition: Admitted As Inpatient Discharge Instructions Interventions: ED Discharge Assessment Last Done: 05/07/21 21:51
[2021-05-07] MEDS ORDERED: GADOBUTROL 65ML VIAL IV ONE (22:40)
[2021-05-07] MEDS ORDERED: ACETAMINOPHEN 325 MG TAB PO PRN (23:19)
[2021-05-07] MEDS ORDERED: PHARMACIST DISCHARGE MED REC CONSULT PRN (23:19)
[2021-05-07] MEDS ORDERED: oxyCODONE/ACETAMINOPHEN 5mg/325mg TAB PO PRN (23:19)
[2021-05-07] MEDS ORDERED: ONDANSETRON INJ 2 MG/ML 2 ML VIAL IV PRN (23:19)
--- NOTE | 2021-05-08 01:35 | Billing Data ---
Date of Service May 07, 2021 Coding Level of Care Code 06851 Initial Inpt Care Lvl 2
[2021-05-08 07:28] LABS: Basophils # (auto) 0.02 K/uL (0-0.2); Basophils % (auto) 0.3 %; Eosinophils # (auto) 0.08 K/uL (0-0.5); Eosinophils % (auto) 1.1 %; Hematocrit (blood only) 31.2 % (37-47); Hemoglobin 10.3 g/dL (12.0-16.0); Immature Granulocytes # (auto) 0.01 K/uL (0.00-0.02); Immature Granulocytes % (auto) 0.1 %; Lymphocytes # (auto) 0.86 K/uL (1.2-3.4); Lymphocytes % (auto) 11.6 %; Mean Corpuscular Hemoglobin 33.6 pg (25-34); Mean Corpuscular Volume 101.6 fL (80-100); Mean Platelet Volume 8.9 fL (7.4-10.4); Monocytes # (auto) 1.04 K/uL (0.11-0.59); Neutrophils # (auto) 5.42 K/uL (1.4-6.5); Neutrophils % (auto) 72.9 %; Platelet Count 305 K/uL (130-400); RDW Coefficient of Variation 13.4 % (11.5-14.5); RDW Standard Deviation 50.3 fL (36.4-46.3); Red Blood Count 3.07 M/uL (4.2-5.4); White Blood Count 7.43 K/uL (4.8-10.8)
--- NOTE | 2021-05-08 07:38 | Electrocardiogram Report ---
Test Reason : Blood Pressure : / mmHG Vent. Rate : 083 BPM Atrial Rate : 083 BPM P-R Int : 182 ms QRS Dur : 098 ms QT Int : 382 ms P-R-T Axes : 071 070 084 degrees QTc Int : 448 ms Normal sinus rhythm Voltage criteria for left ventricular hypertrophy Abnormal ECG When compared with ECG of 04-MAY-2021 15:41, No significant change was found Confirmed by Jony Ceballos ([id number]) on 05/08/2021 7:38:39 AM Referred By: REFERRED SELF Confirmed By:Anjel Ceballos
--- NOTE | 2021-05-08 07:40 | XRay Report ---
XR chest 1V portable HISTORY: 65 years-old Female Stroke Like Symptoms acute strokelike symptoms COMPARISON: Chest radiograph 05/04/2021 TECHNIQUE: Portable AP view of the chest FINDINGS: Surgical blayne of the right neck. Cardiomediastinal and hilar silhouettes are within normal limits. No pneumothorax, pleural effusion, airspace consolidation or overt pulmonary edema. The b ones of th e chest appear grossly intact. IMPRESSION: No acute process. ACT 112: Negative or not required by law. The above report was generated using voice recognition software. It may contain grammatical, syntax o r spelling errors. Electronically signed by: Earle Rankin M.D. 05/08/2021 7:39 AM
[2021-05-08 07:48] LABS: BUN Creatinine Ratio 27.8 (10-20); Calcium 9.4 mg/dl (8.5-10.1); Creatinine Clr Calc Pharmacy 88.1 ml/min; Est GFR (African American) 123.6 ml/min; Est GFR (Non-African American) 106.6 ml/min; Potassium 3.7 mmol/L (3.5-5.1)
[2021-05-08] MEDS: ATORVASTATIN 40 MG TAB PO SCH (08:04)
[2021-05-08] MEDS: FOLIC ACID 1 MG TAB PO SCH (08:04)
[2021-05-08] MEDS: PANTOprazole 40 MG TAB PO SCH ×2 (08:04→20:34)
[2021-05-08] MEDS: THIAMINE HCL 100 MG TAB PO SCH (08:04)
--- NOTE | 2021-05-08 08:10 | Magnetic Resonance Report ---
MR brain wo/w con HISTORY: 65 years-old Female CVA acute strokelike symptoms COMPARISON: Brain MRI 03/30/2021, head CT 05/04/2021, CTA head and neck 05/07/2021. TECHNIQUE: Multiplanar multisequence MRI the brain was obtained both with and without the use of Gada vist FINDINGS: Subacute infarct of the left frontal lobe turner radiata with extension to the caudate and lentiform nuclei redemonstrated measuring up to approximately 2.8 cm in greatest dimension. This demonstrates m ildly decreased signal on ADC map with areas of increased T1 signal around the margins with areas of mild enhancement. There are a few scattered punctate foci of increased diffusion-weighted signal note d within the bilateral centrum semiovale without decreased signal on the ADC map. Motion degraded exa m. Patchy white matter hypodensities suggestive of chronic microvascular ischemic disease. No definite a cute intracranial hemorrhage, midline shift, abnormal extra-axial collection or hydrocephalus. Cerebr al venous sinuses and major arterial flow voids are patent. The intracranial vasculature is better as sessed on the CTA head and neck studies obtained today earlier. Mastoid air cells and nasal sinuses a re generally clear. The skull, orbits and soft tissues are within normal limits. Indeterminate focus of ill-defined subcortical enhancement of the right frontal lobe on image 17 series 11 possibly secon keerthi to a vascular anomaly. IMPRESSION: 1. 2.8 cm subacute infarct of the centrum semiovale left frontal lobe with extension into the caudate and lentiform nuclei. Mild associated laminar necrosis/petechial hemorrhage with enhancement. 2. There are a few punctate foci of restricted diffusion within the centrum semiovale of the frontal lobes suggestive of tiny associated acute versus subacute infarcts. ACT 112: Negative or not required by law. The above report was generated using voice recognition software. It may contain grammatical, syntax o r spelling errors. Electronically signed by: Earle Rankin M.D. 05/08/2021 8:09 AM
[2021-05-08] MEDS: COLLAGENASE OINT 30 GM TUBE TOP SCH (08:30)
[2021-05-08] MEDS ORDERED: ATORVASTATIN 40 MG TAB PO SCH (09:00)
[2021-05-08] MEDS ORDERED: DIPYRIDAMOLE/ASPIRIN CAP PO SCH (09:00)
--- NOTE | 2021-05-08 10:27 | Neurology Consultation ---
Date of Consultation May 08, 2021 Assessment & Plan (1) Stroke due to occlusion of left carotid artery: 65-year-old female who underwent right carotid endarterectomy 4 days ago who was found to have a perioperative left basal ganglia infarct at that time possibly related to a 40 second episode of cardiac arrest and hypoperfusion in the context of a 60% stenosis of the left ICA. She was read[facility] to the [facility] the same day of her discharge with recurrent right facial droop, right-sided weakness, and speech changes. Up-to-date imaging now reveals probable complete occlusion of the left common carotid artery and a subacute infarct within the left centrum semiovale of the left frontal lobe with extension into the caudate and lentiform nuclei with associated laminar necrosis and petechial hemorrhage. There are a few additional smaller foci restricted diffusion within both frontal lobes as well. Her neurologic symptoms and examination are improved this morning. At this point, I wonder if this patient may have had a perioperative thromboembolic stroke resulting in probable occlusion of the left common carotid artery as well as several additional punctate areas of infarct at that time. There has been some laminar necrosis and mild petechial hemorrhage within the l eft frontal infarct which may explain some of her recent clinical deterioration. Again, however, she appears to be significantly improved this morning. Surgical intervention is not recommended for a completely occluded carotid artery. Patient may continue daily low-dose aspirin and clopidogrel which are preferred in the post endarterectomy timeframe over Aggrenox. I do not think I would consider her case and aspirin/clopidogrel failure as her stroke was likely perioperative in nature and related to cardiac arrest and a likely associated thromboembolic stroke. Would recommend a follow-up noncontrast CT of the head tomorrow to ensure stability of the mild petechial hemorrhage. Would recommend reconsultation with vascular surgery for another opinion regarding her recent vascular imaging. However, if the left common carotid artery is truly occluded, then surgical intervention would not typically be recommended. Would also consider a referral to a neurovascular specialist at either [facility] or [facility] Would be careful not to drop patient's blood pressure excessively. Systolic blood pressure goal 140 to 160 mmHg. History of Present Illness Reason for Consultation: Stroke Requesting Physician: Maribel Calderon DO Attending Physician: Em Mireles DO History of Present Illness The patient is a 65-year-old female who underwent right carotid endarterectomy on May 04 for a high-grade stenosis of the proximal right internal carotid artery. At that time, she had a 60% stenosis of the proximal left internal carotid artery. She had 40 second episode of cardiac arrest during the surgery and was resuscitated. She was noted to have a right facial droop, slurred speech, and right upper extremity weakness at that time. A CT of the head showed a new 2 cm left basal ganglia infarct. She was seen in neurological consultation by Dr. Tam at that time. It was felt that her ischemic stroke was related to hypoperfusion in the context of cardiac arrest and the 60% stenosis of the proximal left ICA. A follow-up MRI was suggested at that time although not completed. The patient was discharged on May 07 in stable condition. She was discharged on aspirin, Plavix, and atorvastatin. She was readmitted to the Medical Center the same day, presenting with right facial droop, difficulty speaking, and right sided weakness again. Repeat CT angiography of the head and neck now reveal interval development of complete occlusion of the left common carotid artery with mild diffuse narrowing of the left internal carotid artery and intracranial branches. The previous right carotid endarterectomy is patent. A follow-up brain MRI reveals a 2.8 cm subacute infarct within the centrum semiovale of the left frontal lobe with extension into the caudate and lentiform nuclei. There is mild associated laminar necrosis/petechial hemorrhage with enhancement. There are a few punctate foci of restricted diffusion within the centrum semiovale of the frontal lobes suggestive of tiny associated acute versus subacute infarcts. I reviewed the images as well as the radiologist interpretation of these tests and agree. This morning, the patient is without specific or focal complaint. She denies any headache, dizziness, slurred speech, vertigo, vision change, focal weakness or sensory loss. She reports that her right sided weakness and sensory loss have resolved. She is somewhat unconcerned or inattentive. Allergies Allergy/AdvReac Type Severity Reaction Status Date / Time No Known Allergies Allergy Mild Verified 05/07/21 20:20 Home Medications Medication Instructions Recorded Confirmed Type aspirin 81 mg PO QAM #90 tab 04/01/21 05/07/21 Rx clopidogrel 75 mg PO QAM #30 tab 04/01/21 05/07/21 Rx Santyl 1 applic TOPICAL QAM 04/08/21 05/07/21 History facznprdaoul-buznsson-mxdhtv 1 tab PO QAM 04/08/21 05/07/21 History pantoprazole 40 mg tablet,delayed 40 mg PO BID #60 tab 04/11/21 05/07/21 Rx release lisinopril 40 mg tablet 40 mg PO QAM #90 tab 04/25/21 05/07/21 Rx acetaminophen 500 - 1,000 mg PO Q6H PRN 04/28/21 05/07/21 History atorvastatin 40 mg PO QAM 04/28/21 05/07/21 History amlodipine [Norvasc] 10 mg PO QAM #60 tab 05/07/21 05/07/21 Rx carvedilol 25 mg PO BID 05/07/21 05/07/21 History folic acid 1 mg PO QAM 30 Days #30 tab 05/07/21 05/07/21 Rx hydralazine 25 mg PO TID 05/07/21 05/07/21 History oxycodone-acetaminophen [Percocet] 1 tab PO Q4H PRN #20 tab 05/07/21 05/07/21 Rx thiamine HCl (vitamin B1) [Vitamin 100 mg PO QAM 30 Days #30 tab 05/07/21 05/07/21 Rx B-1] Patient History Medical History AAA (abdominal aortic aneurysm) 16mm x 7mm sacular aneurysm of infrarenal abdominal aorta per 01/22/21 CT scan Alcohol use 3-4 beers daily per nursing assessment Alcohol abuse per records Carotid artery disease COPD with emphysema Per records Dizziness Recently admitted 03/30/21-04/01/21 Possibly related to HTN GERD (gastroesophageal reflux disease) UNDER CONTROL Hypertension Hypertensive urgency Ischemic ulcer of right foot Follows with Wound Clinic Left renal mass Left side- per 04/15/21 MRI= 1.6 x 1.0 cm or slightly exophytic focus within the lateral aspect of the left kidney.- worrisome for RCC per records- pt will follow up as outpatient PAD (peripheral artery disease) S/p stent to right LE February 2021 with SANDY Bilateral iliac artery stenosis Renal artery stenosis Per CT scan 12/[address] Baker Surgical History H/O exploratory laparotomy (03/27/21) Exploratory laparotomy, oversew perforated duodenal ulcer, abdominal washout. Dr. Craig 01/22/2021 H/O tubal ligation H/O vascular surgery 2 stents to right leg [facility] February 2021 History of colonoscopy [place] teeth extracted Family History Mother , age 70 of lung cancer Diabetes Lung cancer Hypertension Father , age 52 of complications of vascular surgery. Lung cancer PAD (peripheral artery disease) Denies family history of Ovarian cancer Prostate cancer Myocardial infarction Breast cancer Colorectal cancer Social History Smoking Status: Current every day smoker Tobacco Type: Cigarettes Age Started Using Tobacco: 27; packs per day: 1; Cigarettes Per Day: 20; Second Hand Exposure: No; Hx Alcohol Use: Yes Alcohol type: beer Alcohol Intake Frequency: 4 or More x per/Week Alcohol Intake Frequency Comment: 2-3 beers daily or more Hx Substance Use: No Preferred Language: Occitan Communication Ability: Effective Visual Impairment: Limited Hearing Ability: Normal Therapeutic Massage Technician Required: No Beliefs That Will Affect Care: None marital status: Current Living Situation: Spouse current occupational status: employed current occupation: [employer] How many Children do You have: 2 Feels Safe at Home: Yes Childhood Exposure to Second-Hand Smoke: Yes caffeine: Yes during the past year weight has: remained stable Dental Care, Regularly: No Physical Activity Frequency: Does not Exercise Physical Activity Frequency Comment: on feet at work all day Seatbelt Use: always Sunscreen Use: No Assistive Devices: Oxygen - Continuous Review of Systems Constitutional: no fever and no chills Eyes: no blind spots and no diplopia Ear, Nose, Mouth, Throat: no hearing loss Respiratory: no cough and no dyspnea Cardiovascular: no chest pain and no palpitations Gastrointestinal: no nausea and no vomiting Genitourinary: no dysuria Musculoskeletal: no myalgia Integumentary: no rash and no lesions Neurologic: as per Subjective / HPI, + localized weakness, + loss of sensation and + paresthesia Psychiatric: no depression and no anxiety Hematologic / Lymphatic: no easy bleeding and no easy bruising Exam (Neuro) Constitutional: well developed and well nourished; no acute distress Eyes: normal visual ludwig by confrontation, PERRL, normal accommodation and EOM intact bilaterally; no fundoscopic abnormality, no nystagmus and no papilledema Cardiovascular: Vessels: normal carotid upstroke; no carotid bruit Neurologic: Oriented to:: Person, Place and Time Memory: Short Term Intact and Remote Intact Attention: Concentration Intact; negative Span Intact (Mildly inattentive.) Language: Naming Objects and Repeating Phrases Speech Fluency: Slowed; negative Dysarthria Speech Aphasia: negative Aphasia Fund of Knowledge: Past History and Vocabulary; negative Current Events Cranial Nerves: Normal II (Visual ludwig full to confrontation, visual acuity normal), III, IV, (Pupils equal round reactive to light and accommodation, eye movements normal), V (Facial sensation intact), VII (There is no facial droop or weakness), VIII (Hearing intact), IX, X (Palate elevates to midline), XI (Shoulder shrug intact) and XII (Tongue protrudes to midline) Motor Strength: Normal Lower Extremities and Normal Upper Extremities; negative Pronator Drift Motor Tone: Normal Lower Extremities and Normal Upper Extremities Muscle Bulk/Involuntary Movements: No Involuntary Movements; negative Muscle Atrophy Sensation: Light Touch Intact, Pain/Temperature Intact, Vibration Intact and Proprioception Intact Coordination: Normal; negative Dysdiadochokinesia, Finger-Nose Abnormal and Heel-Garnica Abnormal Deep Tendon Reflexes: Rt Triceps: 2+, Lt Triceps: 2+, Rt Biceps: 2+, Lt Biceps: 2+, Rt Brachioradialis: 2+, Lt Brachioradialis: 2+, Rt Patellar: 2+, Lt Patellar: 2+, Rt Ankle: 1+ and Lt Ankle: 1+ Special Tests: Babinski Present (Upgoing plantar response on the right) Details: Gait not tested in the context of patient's current neurological status. Mild lid lag versus eyelid apraxia on the right noted Results & Data ([facility]) Vital Signs (Past 12 Hours) Vital Signs Temp Pulse Pulse Resp BP Pulse Ox 05/08/21 08:16 36.6 C 100 H 18 100/59 L 90 05/08/21 07:40 91 H 05/08/21 02:57 36.5 C 87 20 144/66 H 91 Laboratory Results WBC 7.43, hemoglobin 10.3, hematocrit 31.2, platelet count 305, sodium 136, potassium 3.7, BUN 13, creatinine 0.45, glucose 89, troponin less than 0.015, triglycerides 54, cholesterol 125, LDL 50, VLDL 11, HDL [address] of the head, CT angiography of the head and neck, and brain MRI are as described in the history of present illness. I reviewed the images as well as the radiologist's interpretation of these tests and agree. An electrocardiogram reveals a normal sinus rhythm, 83 bpm. An echocardiogram completed May 04, 2021 reveals normal left ventricular size and systolic function, ejection fraction 65 to 70%, no regional wall motion abnormalities. Left atrial size normal. No evidence of atrial septal defect. PFO cannot be completely excluded. Coding Level of Care Code 98340 Inpt Consult Level 5 Diagnoses Stroke due to occlusion of left carotid artery I63.232
--- NOTE | 2021-05-08 12:21 | Hospitalist Progress Note ---
Date of Service May 08, 2021 Assessment & Plan (1) Acute CVA (cerebrovascular accident): 65 yo F Hx cigarette smoking, AAA, COPD, HTN, recent left-sided CVA after right CEA, alcohol use admitted after stroke alert for ? CVA. ? repeat CVA, recent Hx right CEA, HTN: - Recently admitted for elective right CEA that was performed on 05/04/21. - During previous admission developed acute left basal ganglia stroke thought to be secondary to brief cardiac arrest during during right CEA procedure. - Discharged earlier on day of admission: on aspirin, Plavix, HTN control, atorvastatin 40mg daily. - Presented to ER with right sided weakness, worsening dysarthria/facial droop for several hours. - Head CT, CTA Head and Neck performed which showed interval development of narrowing/occlusion of the left common carotid artery, left ICA, M1 segment of the left MCA, and diffuse narrowing of bilateral GREGORIA and anterior communicating arteries. - TPA contraindicated given recent CVA and recent right CEA. - Repeat imaging is showing complete occlusion of left common artery. -Neuro is questioning if this is cardioembolic, patient has recent Echo from February: no signs of thrombus. No documentation of PFO(unsure if bubble study was completed) Will continue current regimen of ASA/Plavix - Continue atorvastatin at 40mg daily dosing -Will have patient be re-evaluated by Dr. Baker to confirm that the carotid artery has been completely occluded. -Will repeat CT scan of head in AM: to eval for stability of petechiae hemorhage. COPD with emphysema: - History of, not on any inhalers in outpatient setting. - Saturating well on room air. - Follow up with PCP regarding PFTs, Pulmonology evaluation. GERD: - Continue pantoprazole. Right foot wound, peripheral vascular disease: - Known right foot wounds. - No fevers, WBC count 11.93; repeat in AM. - Wound care per nursing. - Irene Prather. Code Status: FULL CODE FEN: NPO until completes swallow evaluation; then Heart Healthy diet DVT ppx: SCDs Dispo: Telemetry (2) Hypertension: (3) S/P carotid endarterectomy: (4) Tobacco abuse: (5) Alcohol use: (6) COPD with emphysema: Admission and Anticipated Discharge Date Admission Date: May 07, 2021 Subjective Patient reports feeing better. She no longer is complaining of right sided weakness. Review of Systems Review of Systems: All systems reviewed & are unremarkable except as noted in HPI & below Physical Exam Physical Exam: Constitutional: WD/WN, vitals as above Eyes: PERRL, conjunctivae normal, anicteric sclerae ENMT: external ear and nose normal, oropharynx normal Neck: normal visual inspection Respiratory: normal respiratory effort, lungs clear to auscultation Cardiovascular: RRR, no murmur, no edema Gastrointestinal (Abdomen): normal bowel sounds, soft, nontender, no hepatosplenomegaly Musculoskeletal: no cyanosis or clubbing, extremities motor strength 5/5 Skin: no rashes, warm and dry right neck with blayne in place s/p CEA; also wounds noted on toes no worsening compared to wound images 05/05/21 Neurologic: AAOx3, no facial droop is noted, no motor weakness or decreased sensation noted. Psychiatric: A+Ox3, euthymic affect Results & Data Results & Data ([facility]) Vital Signs (Past 12 Hours) Vital Signs Temp Pulse Pulse Resp BP Pulse Ox 05/08/21 08:16 36.6 C 100 H 18 100/59 L 90 05/08/21 07:40 91 H 05/08/21 02:57 36.5 C 87 20 144/66 H 91 PG Care Time/CCT Total # of Minutes Spent Total Time Spent with Patient: Total time spent is greater than 50% in coordination of care (as documented) at patient's floor/unit and/or counseling patient: Coding Level of Care Code 97297 Subseq Hosp Care Lvl 3 Diagnoses Acute CVA (cerebrovascular accident) I63.9 Hypertension I10 Hypertension type: essential hypertension S/P carotid endarterectomy Z98.890 Tobacco abuse Z72.0 Alcohol use Z72.89 COPD with emphysema J43.9 Emphysema type: unspecified Time Spent (min) 35 (1) COPD with emphysema Emphysema type: unspecified Qualified Code(s): J43.9 - Emphysema, unspecified (2) Hypertension Hypertension type: essential hypertension Qualified Code(s): I10 - Essential (primary) hypertension
[2021-05-09 07:13] LABS: Estimated Average Glucose 100 mg/dl; Hemoglobin A1C 5.1 % (4.5-5.6)
[2021-05-09 07:53] LABS: Basophils # (auto) 0.03 K/uL (0-0.2); Basophils % (auto) 0.5 %; Eosinophils # (auto) 0.12 K/uL (0-0.5); Eosinophils % (auto) 1.9 %; Hematocrit (blood only) 32.1 % (37-47); Hemoglobin 10.6 g/dL (12.0-16.0); Immature Granulocytes # (auto) 0.01 K/uL (0.00-0.02); Immature Granulocytes % (auto) 0.2 %; Lymphocytes # (auto) 0.74 K/uL (1.2-3.4); Lymphocytes % (auto) 11.9 %; Mean Corpuscular Hemoglobin 33.4 pg (25-34); Mean Corpuscular Volume 101.3 fL (80-100); Mean Platelet Volume 8.7 fL (7.4-10.4); Monocytes # (auto) 0.86 K/uL (0.11-0.59); Monocytes % (auto) 13.8 %; Neutrophils # (auto) 4.45 K/uL (1.4-6.5); Neutrophils % (auto) 71.7 %; Platelet Count 309 K/uL (130-400); RDW Coefficient of Variation 13.3 % (11.5-14.5); RDW Standard Deviation 49.6 fL (36.4-46.3); Red Blood Count 3.17 M/uL (4.2-5.4); White Blood Count 6.21 K/uL (4.8-10.8)
--- NOTE | 2021-05-09 08:06 | CT Scan Report ---
CT head/brain wo con CLINICAL HISTORY: Petechial hemorrhage. Follow-up study. INFARCT COMPARISON STUDY: Head CT dated 05/04/2021, MRI the brain dated 05/07/2021 TECHNIQUE: Axial CT of the brain is performed from the vertex to the skull base. IV contrast was not administered for this examination. A dose lowering technique was utilized adhering to the principles of ALARA. CT DOSE: 537.48 mGy.cm FINDINGS: There is a 21 mm hypodensity within the left basal ganglia, consistent with a subacute infarct. There is no hemorrhage visualized on CT scanning. There is no midline shift. Additional punctate lacunar i nfarcts are suspected within the white matter. There is no evidence of pathologic ventricular dilatation. There is no evidence of acute sinusitis IMPRESSION: 1. 21 mm left basal ganglia subacute infarct. No hemorrhage identified on CT scanning. ACT 112: Negative or not required by law. Electronically signed by: Georgi Ritchie M.D. 05/09/2021 8:04 AM
[2021-05-09] MEDS: THIAMINE HCL 100 MG TAB PO SCH (08:19)
[2021-05-09] MEDS: FOLIC ACID 1 MG TAB PO SCH (08:19)
[2021-05-09] MEDS: ATORVASTATIN 40 MG TAB PO SCH (08:19)
[2021-05-09] MEDS: PANTOprazole 40 MG TAB PO SCH ×2 (08:19→20:13)
[2021-05-09] MEDS: COLLAGENASE OINT 30 GM TUBE TOP SCH (08:19)
[2021-05-09 08:24] LABS: BUN Creatinine Ratio 32.5 (10-20); Calcium 9.2 mg/dl (8.5-10.1); Creatinine Clr Calc Pharmacy 76.5 ml/min; Est GFR (African American) 118.6 ml/min; Est GFR (Non-African American) 102.3 ml/min; Potassium 3.7 mmol/L (3.5-5.1)
--- NOTE | 2021-05-09 10:21 | Consultation ---
Date of Consultation May 09, 2021 Assessment & Plan (1) Left carotid artery occlusion: Pt with L common carotid artery occlusion and widely patent R CEA site. Pt imaging reviewed by Dr Baker. Even with an acute event, would not recommend pt undergo L CEA or stenting. Will remove pt's R CEA site blayne on in office if discharged prior to then. Please call if needed. History of Present Illness Reason for Consultation: L common carotid occlusion Attending Physician: Brayden Meyer History of Present Illness 65 yo f POD #6 after R CEA, readmitted d/t L hemispheric CVA, seen in consultation today for L common carotid occlusion noted on CTA neck. PMH positive for HTN, PAD, carotid stenosis, AAA, renal art stenosis, gastric ulcer, COPD. During her R CEA, pt had approx 45sec of asystole, but was resuscitated. Post op, she was noted to have some R sided hand weakness and some mild dysarthria. She was discharged home, but developed worsening R arm and leg weakness, so came back to [facility]. New imaging demonstrates acute/subacute L hemispheric CVA and complete occlusion of L common carotid artery. R CEA site appears widely patent. Pt herself states her sx are resolved. Admits chronic R foot wounds for which she sees the [facility] and Dr Dias for her her PAD. Denies NEWSOME, dizziness, chest pain, SOB, palpitations, any L sided neuro sx, abd pain, N.V, amaurosis, rest pain. Allergies Allergy/AdvReac Type Severity Reaction Status Date / Time No Known Allergies Allergy Mild Verified 05/07/21 20:20 Home Medications Medication Instructions Recorded Confirmed Type aspirin 81 mg PO QAM #90 tab 04/01/21 05/07/21 Rx clopidogrel 75 mg PO QAM #30 tab 04/01/21 05/07/21 Rx Santyl 1 applic TOPICAL QAM 04/08/21 05/07/21 History btyiypbzsslw-naoullip-fdbdbt 1 tab PO QAM 04/08/21 05/07/21 History pantoprazole 40 mg tablet,delayed 40 mg PO BID #60 tab 04/11/21 05/07/21 Rx release lisinopril 40 mg tablet 40 mg PO QAM #90 tab 04/25/21 05/07/21 Rx acetaminophen 500 - 1,000 mg PO Q6H PRN 04/28/21 05/07/21 History atorvastatin 40 mg PO QAM 04/28/21 05/07/21 History amlodipine [Norvasc] 10 mg PO QAM #60 tab 05/07/21 05/07/21 Rx carvedilol 25 mg PO BID 05/07/21 05/07/21 History folic acid 1 mg PO QAM 30 Days #30 tab 05/07/21 05/07/21 Rx hydralazine 25 mg PO TID 05/07/21 05/07/21 History oxycodone-acetaminophen [Percocet] 1 tab PO Q4H PRN #20 tab 05/07/21 05/07/21 Rx thiamine HCl (vitamin B1) [Vitamin 100 mg PO QAM 30 Days #30 tab 05/07/21 05/07/21 Rx B-1] Patient History Medical History AAA (abdominal aortic aneurysm) 16mm x 7mm sacular aneurysm of infrarenal abdominal aorta per 01/22/21 CT scan Alcohol use 3-4 beers daily per nursing assessment Alcohol abuse per records Carotid artery disease COPD with emphysema Per records Dizziness Recently admitted 03/30/21-04/01/21 Possibly related to HTN GERD (gastroesophageal reflux disease) UNDER CONTROL Hypertension Hypertensive urgency Ischemic ulcer of right foot Follows with Wound Clinic Left renal mass Left side- per 04/15/21 MRI= 1.6 x 1.0 cm or slightly exophytic focus within the lateral aspect of the left kidney.- worrisome for RCC per records- pt will follow up as outpatient PAD (peripheral artery disease) S/p stent to right LE February 2021 with SANDY Bilateral iliac artery stenosis Renal artery stenosis Per CT scan 12/[address] Baker Surgical History H/O exploratory laparotomy (01/22/21) Exploratory laparotomy, oversew perforated duodenal ulcer, abdominal washout. Dr. Craig 01/22/2021 H/O tubal ligation H/O vascular surgery 2 stents to right leg [facility] February 2021 History of colonoscopy [place] teeth extracted Family History Mother , age 70 of lung cancer Diabetes Lung cancer Hypertension Father , age 52 of complications of vascular surgery. Lung cancer PAD (peripheral artery disease) Denies family history of Ovarian cancer Prostate cancer Myocardial infarction Breast cancer Colorectal cancer Social History Smoking Status: Current every day smoker Tobacco Type: Cigarettes Age Started Using Tobacco: 27; packs per day: 1; Cigarettes Per Day: 20; Second Hand Exposure: No; Hx Alcohol Use: Yes Alcohol type: beer Alcohol Intake Frequency: 4 or More x per/Week Alcohol Intake Frequency Comment: 2-3 beers daily or more Hx Substance Use: No Preferred Language: Salvadorean Communication Ability: Effective Visual Impairment: Limited Hearing Ability: Normal Brand Advocate Required: No Beliefs That Will Affect Care: None marital status: Current Living Situation: Spouse current occupational status: employed current occupation: [employer] How many Children do You have: 2 Feels Safe at Home: Yes Childhood Exposure to Second-Hand Smoke: Yes caffeine: Yes during the past year weight has: remained stable Dental Care, Regularly: No Physical Activity Frequency: Does not Exercise Physical Activity Frequency Comment: on feet at work all day Seatbelt Use: always Sunscreen Use: No Assistive Devices: Oxygen - Continuous Review of Systems Review of Systems: All systems reviewed & are unremarkable except as noted in HPI & below Physical Exam Constitutional: WD/WN, vitals as above + thin and cooperative; not in distress Neck: trachea midline (R neck incision C/D/I blayne, mild local ecchymosis.) Respiratory: normal respiratory effort, lungs clear to auscultation Auscultation: + diminished lung sounds Cardiovascular: Rate/Rhythm: regular rate and regular rhythm Vessels: femoral pulses present and radial pulses present; + abnormal peripheral pulses Extremities: + abnormal capillary refill Gastrointestinal (Abdomen): normal bowel sounds, soft, nontender, no hepatosplenomegaly Musculoskeletal: Extremities: strength 5/5 throughout Skin: + wound (R foot) Neurologic: moves all extremities and awake (R lower lip dysfunction d/t marginal mandibular nerve from recent surgery); no focal motor deficits and not confused Psychiatric: A+Ox3, euthymic affect Results & Data ([facility]) Vital Signs (Past 12 Hours) Vital Signs Temp Pulse Resp BP BP Pulse Ox 05/09/21 07:29 36.7 C 81 19 182/74 H 97 05/09/21 04:00 36.7 C 76 16 146/66 H 90 05/08/21 22:50 36.6 C 84 20 169/76 H 95
--- NOTE | 2021-05-09 22:33 | Hospitalist Progress Note ---
Date of Service May 09, 2021 Assessment & Plan (1) Acute CVA (cerebrovascular accident): Recently admitted for elective right CEA that was performed on 05/04/21. During previous admission developed acute left basal ganglia stroke thought to be secondary to brief cardiac arrest during the CEA procedure. Discharged to home on 05/07/21 with aspirin and Plavix for secondary stroke prevention & atorvastatin 40mg daily. Presented later in the day on 05/07 again to the [facility] ER with right sided wea kness and worsening dysarthria/facial droop. Head CT and CTA Head/Neck showed interval development of narrowing/occlusion of the left common carotid artery, left ICA, M1 segment of the left MCA, and diffuse narrowing of bilateral GREGORIA and anterior communicating arteries. Neuro has seen again -- d/c aggrenox, change back to asa/plavix. CT head today without any hemorrhagic transformation. (2) Hypertension: labile also with known MIAN will restart amlodipine 2.5mg daily (3) S/P carotid endarterectomy: right Dr Baker 05/04/21 surgical site intact now with left common carotid occlusion - vascular saw today, no plans for intervention of such (4) Tobacco abuse: needs to quit nicoderm 21mg/day (5) Alcohol use: no signs/symptoms of etoh withdrawal did not have withdrawal during her admission in March when I cared for her (6) COPD with emphysema: no flare at this time (7) Cardiac arrest: during recent CEA on 05/04/21 recent echo wnl arrest as the cause of recent strokes?? (8) AAA (abdominal aortic aneurysm): (9) History of duodenal ulcer: PPI (10) Renal artery stenosis: (11) Vasculopathy: (12) Discharge planning issues: in light of my phone call w/ stating he is concerned about coming home -- rehab??? will d/w case management in am Admission and Anticipated Discharge Date Admission Date: May 07, 2021 Subjective patient eating lunch during my visit dysarthria noted wants to go home offers no complaints updated pt's by phone this evening - he is concerned about her coming home stating "I can't care for her" he also requested that he speak directly to Dr Baker about the recent surgery Review of Systems Respiratory: + dyspnea on exertion (baseline); no dyspnea Cardiovascular: no chest pain Gastrointestinal: no abdominal pain Physical Exam Constitutional: + thin; no acute distress and no altered mental status ENMT: external ear and nose normal, oropharynx normal Respiratory: no respiratory distress Auscultation: + wheezes Cardiovascular: Rate/Rhythm: regular rate and regular rhythm Heart Sounds: normal S1 and normal S2; no murmur Vessels: posterior tibial pulses present and dorsalis pedis pulses present; no JVD Extremities: no edema right carotid CEA site with blayne intact and no drainage Gastrointestinal (Abdomen): normal bowel sounds, soft, nontender, no hepatosplenomegaly Neurologic: right facial droop; minimal right leg weakness, about 4-5/5; right arm near 5/5 strength; left side 5/5 arm & leg Psychiatric: Orientation: alert, oriented to person and oriented to place Results & Data Results & Data ([facility]) Vital Signs (Past 12 Hours) Vital Signs Temp Pulse Pulse Resp BP BP Pulse Ox 05/09/21 19:50 36.6 C 81 20 124/63 92 05/09/21 16:06 85 05/09/21 15:08 36.4 C L 89 19 147/75 H 95 05/09/21 11:03 36.4 C L 79 17 162/75 H 98 Laboratory Results Laboratory Results - last 24 hr 05/08/21 05/09/21 05/09/21 06:54 07:29 07:29 WBC 6.21 RBC 3.17 L Hgb 10.6 L Hct 32.1 L MCV 101.3 H MCH 33.4 MCHC 33.0 RDW Std Deviation 49.6 H RDW Coeff of Odette 13.3 Plt Count 309 MPV 8.7 Immature Gran % (Auto) 0.2 Neut % (Auto) 71.7 Lymph % (Auto) 11.9 Love % (Auto) 13.8 Eos % (Auto) 1.9 Baso % (Auto) 0.5 Neut # (Auto) 4.45 Lymph # (Auto) 0.74 L Love # (Auto) 0.86 H Eos # (Auto) 0.12 Baso # (Auto) 0.03 Immature Gran # (Auto) 0.01 Sodium 137 Potassium 3.7 Chloride 104 Carbon Dioxide 29 Anion Gap 4.0 BUN 17 Creatinine 0.51 L Est Cr Clr Drug Dosing 76.5 Est GFR ( Amer) 118.6 Est GFR (Non-Af Amer) 102.3 BUN/Creatinine Ratio 32.5 H Glucose 92 Estimat Average Glucose 100 Hemoglobin A1c 5.1 Calcium 9.2 PG Care Time/CCT Total # of Minutes Spent Total Time Spent with Patient: Total time spent is greater than 50% in coordination of care (as documented) at patient's floor/unit and/or counseling patient: Coding Level of Care Code 99982 Subseq Hosp Care Lvl 2 Diagnoses Acute CVA (cerebrovascular accident) I63.9 Hypertension I10 Hypertension type: essential hypertension S/P carotid endarterectomy Z98.890 Tobacco abuse Z72.0 Alcohol use Z72.89 COPD with emphysema J43.9 Emphysema type: unspecified Cardiac arrest I46.9 AAA (abdominal aortic aneurysm) I71.4 Presence of rupture: without rupture History of duodenal ulcer Z87.19 Renal artery stenosis I70.1 Vasculopathy I99.9 Discharge planning issues Z02.9 (1) COPD with emphysema Emphysema type: unspecified Qualified Code(s): J43.9 - Emphysema, unspecified (2) Hypertension Hypertension type: essential hypertension Qualified Code(s): I10 - Essential (primary) hypertension (3) AAA (abdominal aortic aneurysm) Presence of rupture: without rupture Qualified Code(s): I71.4 - Abdominal aortic aneurysm, without rupture
[2021-05-09] MEDS: NICOTINE 21 MG/24 HR TDSY TD SCH (23:30)
[2021-05-10 07:54] LABS: BUN Creatinine Ratio 39.3 (10-20); Calcium 8.8 mg/dl (8.5-10.1); Creatinine Clr Calc Pharmacy 75.2 ml/min; Est GFR (African American) 117.9 ml/min; Est GFR (Non-African American) 101.7 ml/min; Potassium 3.7 mmol/L (3.5-5.1)
[2021-05-10] MEDS: FOLIC ACID 1 MG TAB PO SCH (08:09)
[2021-05-10] MEDS: ATORVASTATIN 40 MG TAB PO SCH (08:10)
[2021-05-10] MEDS: THIAMINE HCL 100 MG TAB PO SCH (08:10)
[2021-05-10] MEDS: COLLAGENASE OINT 30 GM TUBE TOP SCH (08:10)
[2021-05-10] MEDS: PANTOprazole 40 MG TAB PO SCH ×2 (08:10→20:42)
[2021-05-10] MEDS: NICOTINE 21 MG/24 HR TDSY TD SCH (08:11)
[2021-05-10] MEDS ORDERED: amLODIPine BESYLATE 5 MG TAB PO ONE (11:20)
[2021-05-10] MEDS ORDERED: CLOPIDOGREL BISULFATE 75 MG TAB PO ONE (11:24)
[2021-05-10] MEDS: ASPIRIN 81 MG ECTAB PO SCH (12:11)
[2021-05-10] MEDS: carvediloL 3.125 MG TAB PO SCH (21:46)
--- NOTE | 2021-05-11 01:33 | Hospitalist Progress Note ---
Date of Service May 10, 2021 Assessment & Plan (1) Acute CVA (cerebrovascular accident): Recently admitted for elective right CEA that was performed on 05/04/21. During previous admission developed acute left basal ganglia stroke thought to be secondary to brief cardiac arrest during the CEA procedure. Discharged to home on 05/07/21 with aspirin and Plavix for secondary stroke prevention & atorvastatin 40mg daily. Presented later in the day on 05/07 again to the [facility] ER with right sided wea kness and worsening dysarthria/facial droop. Head CT and CTA Head/Neck showed interval development of narrowing/occlusion of the left common carotid artery, left ICA, M1 segment of the left MCA, and diffuse narrowing of bilateral GREGORIA and anterior communicating arteries. Repeat MRI brain 05/07 -- "Subacute infarct of the left frontal lobe turner radiata with extension to the caudate and lentiform nuclei redemonstrated measuring up to approximately 2.8 cm in greatest dimension. This demonstrates mildly decreased signal on ADC map with areas of increased T1 signal around the margins with areas of mild enhancement. There are a few scattered punctate foci of increased diffusion-weighted signal noted within the bilateral centrum semiovale without decreased signal on the ADC map." Neuro has seen again -- recommended keeping asa/plavix for secondary prevention. CT head yesterday without any hemorrhagic transformation. (2) Hypertension: labile also with known MIAN restarted amlodipine 2.5mg daily will also restart coreg 3.125mg BID (3) S/P carotid endarterectomy: right Dr Baker 05/04/21 surgical site intact now with left common carotid occlusion - vascular saw, no plans for intervention of such (4) Tobacco abuse: needs to quit cont nicoderm 21mg/day (5) Alcohol use: no signs/symptoms of etoh withdrawal did not have withdrawal during her admission in March when I cared for her (6) COPD with emphysema: no flare at this time (7) Cardiac arrest: during recent CEA on 05/04/21 recent echo wnl arrest as the cause of recent strokes?? cardiology saw during prior visit - no further testing recommended need for 30-day event monitor? (8) AAA (abdominal aortic aneurysm): (9) History of duodenal ulcer: PPI bid required surgery with patching for such 2020 (10) Renal artery stenosis: (11) Vasculopathy: asa, statin, plavix quit smoking (12) Discharge planning issues: after lengthy discussion with patient today she is agreeable to referral to [facility] social work aware Admission and Anticipated Discharge Date Admission Date: May 07, 2021 Subjective patient without complaints eating well w/o dysphagia speech still dysarthric but no worse right sided weakness markedly improved we had a discussion about rehab at [facility] - agreeable to such BPs cont to be labile and I explained we are titrating her meds denies any dizziness Review of Systems Constitutional: no fatigue and no anorexia Respiratory: + cough, + dyspnea on exertion (baseline) and + wheezing Cardiovascular: no chest pain Gastrointestinal: no abdominal pain, no nausea and no vomiting Neurologic: no new neurological symptoms Physical Exam Constitutional: + thin; no acute distress and no altered mental status ENMT: external ear and nose normal, oropharynx normal Respiratory: no respiratory distress Auscultation: + wheezes Cardiovascular: Rate/Rhythm: regular rate and regular rhythm Heart Sounds: normal S1 and normal S2; no murmur Vessels: posterior tibial pulses present and dorsalis pedis pulses present; no JVD Extremities: no edema Gastrointestinal (Abdomen): normal bowel sounds, soft, nontender, no hepatosplenomegaly Skin: right neck CEA incision with blayne intact; clean Neurologic: dysarthria persists; mild right lower facial droop. Strength right arm near 5/5. Strength right leg 4/5. Strength left arm/left leg - 5/5. Psychiatric: Orientation: alert, oriented to person, oriented to place and oriented to time Results & Data Results & Data ([facility]) Vital Signs (Past 12 Hours) Vital Signs Temp Pulse Pulse Resp BP Pulse Ox 05/11/21 00:23 36.5 C 82 18 168/77 H 93 05/10/21 23:32 91 H 05/10/21 20:02 36.6 C 86 18 119/76 92 05/10/21 16:02 36.4 C L 91 H 19 171/72 H 93 Laboratory Results Laboratory Results - last 24 hr 05/10/21 06:58 Sodium 140 Potassium 3.7 Chloride 106 Carbon Dioxide 30 Anion Gap 4.0 BUN 21 H Creatinine 0.52 L Est Cr Clr Drug Dosing 75.2 Est GFR ( Amer) 117.9 Est GFR (Non-Af Amer) 101.7 BUN/Creatinine Ratio 39.3 H Glucose 89 Calcium 8.8 PG Care Time/CCT Total # of Minutes Spent Total Time Spent with Patient: Total time spent is greater than 50% in coordination of care (as documented) at patient's floor/unit and/or counseling patient: Coding Level of Care Code 85588 Subseq Hosp Care Lvl 2 Diagnoses Acute CVA (cerebrovascular accident) I63.9 Hypertension I10 Hypertension type: essential hypertension S/P carotid endarterectomy Z98.890 Tobacco abuse Z72.0 Alcohol use Z72.89 COPD with emphysema J43.9 Emphysema type: unspecified Cardiac arrest I46.9 AAA (abdominal aortic aneurysm) I71.4 Presence of rupture: without rupture History of duodenal ulcer Z87.19 Renal artery stenosis I70.1 Vasculopathy I99.9 Discharge planning issues Z02.9 (1) AAA (abdominal aortic aneurysm) Presence of rupture: without rupture Qualified Code(s): I71.4 - Abdominal aortic aneurysm, without rupture (2) COPD with emphysema Emphysema type: unspecified Qualified Code(s): J43.9 - Emphysema, unspecified (3) Hypertension Hypertension type: essential hypertension Qualified Code(s): I10 - Essential (primary) hypertension
[2021-05-11] MEDS: NICOTINE 21 MG/24 HR TDSY TD SCH (08:31)
[2021-05-11] MEDS: ATORVASTATIN 40 MG TAB PO SCH (08:32)
[2021-05-11] MEDS: THIAMINE HCL 100 MG TAB PO SCH (08:32)
[2021-05-11] MEDS: carvediloL 3.125 MG TAB PO SCH (08:32)
[2021-05-11] MEDS: ASPIRIN 81 MG ECTAB PO SCH (08:32)
[2021-05-11] MEDS: PANTOprazole 40 MG TAB PO SCH (08:32)
[2021-05-11] MEDS: FOLIC ACID 1 MG TAB PO SCH (08:33)
[2021-05-11] MEDS: COLLAGENASE OINT 30 GM TUBE TOP SCH (08:33)
[2021-05-11] MEDS ORDERED: CLOPIDOGREL BISULFATE 75 MG TAB PO SCH (09:00)
[2021-05-11] MEDS ORDERED: amLODIPine BESYLATE 5 MG TAB PO SCH (09:00)
--- NOTE | 2021-05-11 12:23 | Surgery Progress Note ---
Date of Service May 11, 2021 Assessment & Plan (1) H/O carotid endarterectomy: Plan: Incision looks good. Will D/C blayne today. Will follow her up in 6mths Admission and Anticipated Discharge Date Admission Date: May 07, 2021 Subjective No complaints. Would rather go home than rehab Physical Exam Constitutional: WD/WN, vitals as above Neck: trachea midline Skin: + incision (dry and clean) Results & Data ([facility]) Vital Signs (Past 12 Hours) Vital Signs Temp Pulse Pulse Resp BP BP Pulse Ox 05/11/21 11:00 36.3 C L 82 17 104/66 95 05/11/21 07:34 36.6 C 79 16 197/76 H 94 05/11/21 07:00 75 05/11/21 00:23 36.5 C 82 18 168/77 H 93
[2021-05-11] MEDS ORDERED: STROKE PATIENT DISCHARGE STA (16:11)
--- NOTE | 2021-05-11 16:21 | Discharge Summary ---
Date of Service date of admission - May 07, 2021 date of discharge - May 11, 2021 Admission HPI Per Admitting Provider 65 yo female with Hx cigarette smoking, AAA, COPD, peripheral vascular disease with chronic nonhealing wounds, HTN, recent left-sided CVA after right CEA, alcohol use presented to ER as stroke alert for right sided weakness and worsening facial droop starting around 6pm. Patient was discharged earlier today after elective right CEA; during that admission she had brief cardiac arrest during surgery and left basal ganglia CVA. She was discharged on asa and Plavix. Patient is a current 1 PPD smoker. She denies SOB, chest pain, nausea or vomiting, fevers or chills. In the ER patient did not receive TPA despite being in appropriate window (contraindicated due to recent CVA and right CEA). Imaging in ER showed development in occlusions in left ICA, left common carotid artery, and left MCA. Hospitalist service consulted for admission. Principal Diagnosis Subacute infarct within the left centrum semiovale of the left frontal lobe with extension into the caudate and lentiform nuclei Discharge Exam Constitutional + thin; no acute distress and no altered mental status ENMT external ear and nose normal, oropharynx normal Respiratory no respiratory distress Auscultation: + wheezes Cardiovascular Rate/Rhythm: regular rate and regular rhythm Heart Sounds: normal S1 and normal S2; no murmur Vessels: posterior tibial pulses present and dorsalis pedis pulses present; no JVD Extremities: no edema Gastrointestinal (Abdomen) normal bowel sounds, soft, nontender, no hepatosplenomegaly Musculoskeletal Extremities: + clubbing Skin right neck CEA incision clean, dry, intact; blayne removed. Neurologic + focal motor deficit (mild right-sided weakness (4-5/5); left arm/leg 5/5 strength ) Speech / Cognition: + abnormal speech (mild dysarthria) Cranial Nerves: + abnormal facial strength (mild right-sided facial droop ) Psychiatric Orientation: alert, oriented to person, oriented to place and oriented to time Discharge Data Allergies Allergy/AdvReac Type Severity Reaction Status Date / Time No Known Allergies Allergy Mild Verified 05/24/21 12:16 Consultations [facility] Neurology [facility] Vascular Surgery PT, OT, speech therapy Ordered Studies Head CTA 05/07/21 19:20 CT angio head wo/w CT DOSE: 1156.57 mGy.cm CLINICAL HISTORY: CVA TECHNIQUE: A dose lowering technique was utilized adhering to the principles of ALARA. COMPARISON STUDY: May 04, 2021 and March 30, 2021 FINDINGS: No acute intracranial hemorrhage, no midline shift or space occupying lesions seen. Previously seen ill-defined hypoattenuating lesion within left basal ganglia slightly decreased in size and now measuring 1.8 cm. Hallman-white matter differentiation is preserved. Mild diffuse atrophic changes of brain parenchyma. Ventricles are midline, of normal size and configuration. No acute depressed skull fractures seen. Visualized paranasal sinuses and mastoid air cells are patent and well-aerated. On CT angiogram evaluation of the intracranial vessels there is interval development of diffuse segment narrowing of the left internal carotid artery within its distal extracranial, petrous, cavernosal and supraclinoid aspect. Supraclinoid aspect of the left ICA and M1 segment of the left MCA are diffusely narrowed which is new since prior. Distal branches of the right and left MCA are patent. Bilateral GREGORIA and anterior communicating arteries are patent however appears slightly more narrowed when compared to prior study. Distal aspect of bilateral vertebral arteries are well-opacified. Basilar artery is patent. Bilateral posterior cerebral arteries are well opacified. IMPRESSION: 1. Interval development of diffuse narrowing of the left ICA within its visualized extracranial, petrous and clinoid portion. Findings will be sent to emergency Department at the time of this dictation. 2. Interval development of mild narrowing of the M1 segment of the left MCA and diffuse narrowing of bilateral GREGORIA and anterior communicating arteries. 3. Mild interval decrease in size of large hypoattenuating lesion/infarct within left basal ganglia. No acute intracranial hemorrhage is seen. ACT 112: Negative or not required by law. The above report was generated using voice recognition software. It may contain grammatical, syntax or spelling errors. Electronically signed by: Kacy Quinonez DO 05/07/2021 8:09 PM Neck CTA 05/07/21 19:20 CT angio neck with con CLINICAL HISTORY: CVA, s/p R CEA COMPARISON STUDY: No previous studies for comparison. TECHNIQUE: CT angiography was performed from the aortic arch to the skull base. MIP imaging was performed. The patient was scanned in a dynamic helical fashion during intravenous administration of 118 cc of Optiray. A dose lowering technique was utilized adhering to the principles of ALARA. CT DOSE: Technique: CT angiogram of the carotid and vertebral arteries was obtained using intravenous contrast and 3-D reconstruction. NASCET criteria was utilized. 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 Minimal reconstitution of the floor is seen within proximal aspect of the left internal carotid artery, left internal carotid artery appears significantly narrowed throughout its course which is new since prior study. Right common carotid artery is well opacified. Previously seen heavily calcified plaque with significant stenosis of the proximal right internal carotid artery is improved with mild interval decrease in calcification in improved patency of the lumen. There is areas of gas collection is seen within surrounding soft tissue as well as skin blayne likely representing changes from recent right carotid endarterectomy. Bilateral vertebral arteries are patent throughout its course without evidence of focal occlusion or significant stenosis. 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 Findings will be called to emergency department at the time of this dictation. Mild diffuse narrowing of the left internal carotid artery is new since prior study. Interval improvement of luminal narrowing within proximal aspect of the right internal carotid artery after right endarterectomy. Postoperative changes are seen within right neck soft tissue as detailed above. ACT 112: Negative or not required by law. The above report was generated using voice recognition software. It may contain grammatical, syntax or spelling errors. Electronically signed by: Kacy Quinonez DO 05/07/2021 8:25 PM Chest X-Ray 05/07/21 19:22 XR chest 1V portable HISTORY: 65 years-old Female Stroke Like Symptoms acute strokelike symptoms COMPARISON: Chest radiograph 05/04/2021 TECHNIQUE: Portable AP view of the chest FINDINGS: Surgical blayne of the right neck. Cardiomediastinal and hilar silhouettes are within normal limits. No pneumothorax, pleural effusion, airspace consolidation or overt pulmonary edema. The b ones of the chest appear grossly intact. IMPRESSION: No acute process. ACT 112: Negative or not required by law. The above report was generated using voice recognition software. It may contain grammatical, syntax or spelling errors. Electronically signed by: Earle Rankin M.D. 05/08/2021 7:39 AM Brain MRI 05/07/21 21:35 MR brain wo/w con HISTORY: 65 years-old Female CVA acute strokelike symptoms COMPARISON: Brain MRI 03/30/2021, head CT 05/04/2021, CTA head and neck 05/07/2021. TECHNIQUE: Multiplanar multisequence MRI the brain was obtained both with and w ithout the use of Gadavist FINDINGS: Subacute infarct of the left frontal lobe turner radiata with extension to the caudate and lentiform nuclei redemonstrated measuring up to approximately 2.8 cm in greatest dimension. This demonstrates mildly decreased signal on ADC map with areas of increased T1 signal around the margins with areas of mild enhancement. There are a few scattered punctate foci of increased diffusion-weighted signal noted within the bilateral centrum semiovale without decreased signal on the ADC map. Motion degraded exam. Patchy white matter hypodensities suggestive of chronic microvascular ischemic disease. No definite acute intracranial hemorrhage, midline shift, abnormal extra-axial collection or hydrocephalus. Cerebral venous sinuses and major arterial flow voids are patent. The intracranial vasculature is better assessed on the CTA head and neck studies obtained today earlier. Mastoid air cells and nasal sinuses are generally clear. The skull, orbits and soft tissues are within normal limits. Indeterminate focus of ill-defined subcortical enhancement of the right frontal lobe on image 17 series 11 possibly secondary to a vascular anomaly. IMPRESSION: 1. 2.8 cm subacute infarct of the centrum semiovale left frontal lobe with extension into the caudate and lentiform nuclei. Mild associated laminar necrosis/petechial hemorrhage with enhancement. 2. There are a few punctate foci of restricted diffusion within the centrum semiovale of the frontal lobes suggestive of tiny associated acute versus subacute infarcts. ACT 112: Negative or not required by law. The above report was generated using voice recognition software. It may contain grammatical, syntax or spelling errors. Electronically signed by: Earle Rankin M.D. 05/08/2021 8:[address] 05/09/21 07:30 CT head/brain wo con CLINICAL HISTORY: Petechial hemorrhage. Follow-up study. INFARCT COMPARISON STUDY: Head CT dated 05/04/2021, MRI the brain dated 05/07/2021 TECHNIQUE: Axial CT of the brain is performed from the vertex to the skull base. IV contrast was not administered for this examination. A dose lowering technique was utilized adhering to the principles of ALARA. CT DOSE: 537.48 mGy.cm FINDINGS: There is a 21 mm hypodensity within the left basal ganglia, consistent with a subacute infarct. There is no hemorrhage visualized on CT scanning. There is no midline shift. Additional punctate lacunar infarcts are suspected within the white matter. There is no evidence of pathologic ventricular dilatation. There is no evidence of acute sinusitis IMPRESSION: 1. 21 mm left basal ganglia subacute infarct. No hemorrhage identified on CT scanning. ACT 112: Negative or not required by law. Electronically signed by: Georgi Ritchie M.D. 05/09/2021 8:04 AM Hospital Course (1) Acute CVA (cerebrovascular accident): Recently admitted for elective right CEA that was performed on 05/04/21. During that previous admission she developed an acute left basal ganglia stroke thought to be secondary to brief cardiac arrest during the CEA procedure. Discharged to home on 05/07/21 with aspirin and Plavix for secondary stroke prevention & atorvastatin 40mg daily. Presented later in the day on 05/07 again to the [facility] with right sided w eakness and worsening dysarthria/facial droop. Head CT and CTA Head/Neck showed interval development of narrowing/occlusion of the left common carotid artery, left ICA, M1 segment of the left MCA, and diffuse narrowing of bilateral GREGORIA and anterior communicating arteries. Repeat MRI brain 05/07 -- "Subacute infarct of the left frontal lobe turner radiata with extension to the caudate and lentiform nuclei redemonstrated measuring up to approximately 2.8 cm in greatest dimension. This demonstrates mildly decreased signal on ADC map with areas of increased T1 signal around the margins with areas of mild enhancement. There are a few scattered punctate foci of increased diffusion-weighted signal noted within the bilateral centrum semiovale without decreased signal on the ADC map." Neurology saw patient in consult once again. They recommended keeping asa/plavix for secondary stroke prevention. Neurology felt that this new stroke was likely due to perioperative emboli in the setting of her cardiac arrest (especially since there was evidence of very tiny infarcts in the brain bilaterally on MRI this admission). A repeat CT head following admission did NOT show any hemorrhagic transfo rmation. The patient was seen again by PT/OT/speech therapy. Initially the plan was for the patient to go to [facility] post-discharge. However, her insurance denied a rehab stay. Ultimately the patient returned home with her . (2) Hypertension: Labile throughout her stay, similar to past admissions. She has known renal artery stenosis. She was restarted on amlodipine 2.5mg daily and this was ultimately titrated to 2.5mg BID. She was also restarted on coreg 3.125mg BID. Lisinopril and hydralazine were not continued as her BPs were acceptable without them. Close f/u for her HTN will be needed. (3) S/P carotid endarterectomy: right. 05/04/[address] Teodoro Baker. blayne removed on 05/11/21. surgical site intact at time of discharge. now with left common carotid occlusion - vascular saw in consult, no plans for intervention of such. also with left ICA stenosis - >50%, no plans for intervention at this time either. Continue aggressive risk factor modification including asa, plavix, statin, and pursuing tobacco cessation. (4) Tobacco abuse: needs to quit smoking as soon as possible. at high risk of recurrent stroke, MA, etc. (5) Alcohol use: no signs/symptoms of etoh withdrawal during the stay. did not have withdrawal during her previous admissions. advised to abstain from etoh, or - if she continues to drink - to take in <1 beverage/day. (6) COPD with emphysema: no flare during the stay. (7) Cardiac arrest: during recent CEA on 05/04/21. echo performed on 05/04/21 with preserved EF and no source of embolus seen. cardiac arrest was the likely cause of her perioperative stroke(s). in light of her prior cardiac arrest will set up with [facility] cardiology post- discharge. (8) AAA (abdominal aortic aneurysm): 16 x 7 mm saccular aneurysm of the infrarenal abdominal aorta (9) History of duodenal ulcer: Required surgery with patching for such early this year. Continue PPI twice daily. (10) Renal artery stenosis: Severe stenosis, right renal artery. Seen on CT abd/pelvis 12/2020. can follow with Dr Baker for this. (11) Vasculopathy: asa, statin, plavix quit smoking Home Health Attestation I certify that this patient is under my care and that I, or a physicians surgeon assistant working with me, had a face to-face encounter that meets the home health [id number] encounter requirements with this patient. The encounter with the patient was in whole, or in part, for the following medical condition, which is the primary reason for home health care (list medical condition): Post CVA; balance issues I certify that, based on my findings, the following services are medically necessary home health services: My clinical findings support the need for the above services because: Monitor Incision for Infection PT Assessment for Endurance / Balance / Strength PT Eval for Safety and Mobility PT Eval for Safety, Gait Training, Assistive Devices PT Gait and Balance Training, Strengthening and Safety Safety Skilled Nsg Assessment Further, I certify that my clinical findings support that this patient is homebound (i.e. absences from home require considerable and taxing effort and are for medical reasons or denominational services or infrequently or of short duration when for other reasons) because: Certification for Home Health Services: Based on the above findings, I certify that this patient is confined to the home and needs intermittent jail care, physical therapy and/or speech therapy or continues to need occupational therapy. The patient is under my care, and I have initiated the establishment of the plan of care. This patient will be followed by a physician who will periodically review the plan of care. Total Time Total Time Spent Total Time Spent (In Minutes): 45 Discharge Plan Discharge Items Patient Disposition: Home - Home Health Services Reason For Visit: Stroke Discharge Diagnosis: 1. Stroke - symptoms (speech difficulty, right-sided weakness) improving. 2. Recent right-sided carotid artery surgery. 3. High blood pressure. 4. Recent cardiac arrest during her carotid surgery - cardiology follow-up advised. Activity: As commented below Activity Comment: no strenuous activities until you are seen by your family doctor Lifting: No more than 10 pounds Lifting Comment: follow this lifting restriction until you see your family doctor Bathing: No limitations Bathing Comment: May shower at this time Sexual Activity: Wait until after follow-up appointment Exercise/Sports: Wait until after follow-up appointment Driving/Machine Use: no driving Non-emergency contact: Primary Care Provider, Surgeon and Fresco Artist Call non-emergency contact if: you have any medication questions, your symptoms worsen, you have a fever, your wound has increased redness, your wound has increased drainage and your wound pain has increased Follow-up/Referrals: Go Landeros CRNP [Primary Care Provider] - 05/17/21 8:20 am (see Mr Landeros within 5-7 days ) Andrew Dias MD [Physician] - 05/24/21 10:00 am Cash Baker MD [Physician] - (pt has already been scheduled per office) Diet: Heart Healthy Addtl Attending Provider Instructions: Ms Bellamy, You were hospitalized due to your recent stroke. An MRI brain done on 05/07/21 again showed the left-sided stroke that is causing your speech difficulty and mild right-sided weakness. We also saw very tiny strokes in other locations but these are not causing symptoms. The neurologist believes that during the cardiac arrest while undergoing your carotid surgery you may have thrown little blood clots to the brain causing the stroke. We made adjustments to your blood pressure medications while here. We monitored you on the heart monitor and this was normal. Your blayne from the right neck were removed on 05/11/21. PT, OT, and speech saw you once again. We attempted to get you to rehab at [facility] but unfortunately your insurance would not approve it. You will have home PT/OT at your house upon discharge. Recommendations -- 1. please quit smoking if at all possible. talk to your family doctor about ways you can possibly quit. 2. blood pressure medications - * STOP your lisinopril * STOP your hydralazine * CONTINUE carvedilol but we have LOWERED the dose to 3.125mg twice daily; new prescription is at your pharmacy for you * LOWER your amlodipine dose to 2.5mg twice daily; take the 5mg tablets you have at home and break them in half 3. check your blood pressure once or twice daily until seen by your family doctor. Bring those readings to the follow-up visit. 4. continue aspirin and clopidogrel to help prevent future stroke. 5. take your atorvastatin cholesterol medication every day. 6. continue the woundcare to your right foot wound as previous. 7. drink alcohol in moderation (1 drink per day or less is best). 8. DO NOT RETURN TO WORK at this time. You will need to take it easy for a few weeks and gain clearance from your family doctor and the ethologist. Follow-up -- see separate section Return to [facility] if -- * you have any concerns about a recurrent stroke; see the "stroke instructions" below * you have increased redness, drainage, etc from the right neck wound * you have dizziness or lightheadedness * you have chest pain or shortness of breath * any other concerns Best wishes for a speedy recovery, Dr Mitch Head Diesel Retrofit Installer Provider Instructions: STROKE INSTRUCTIONS: Risk Factors for Stroke: You can reduce your chances of stroke by working with your medical provider to adopt a healthy lifestyle. Some specific ways to lower your chance of stroke are: * If you are a smoker, now is the time to stop smoking cigarettes * If you are diabetic, improve the control of your blood sugars * Avoid excessive amounts of alcohol * Control high blood pressure * Lose weight if you are overweight * Be sure to lead an active lifestyle * Eat a healthy diet low in salt, cholesterol and fat You should know about other risk factors for stroke that you are unable to control. These include: * Age 55 years or older * Male gender * Certain racial groups: , or / * Family History of Stroke, Mini stroke or Heart Attack * Sickle Cell Disease Follow Up: It is important for you to keep your follow up appointments with your medical provider. Who to Call and When: Medical Emergencies: Call 911 immediately if you experience any of the following warning signs and symptoms of Stroke: * Sudden numbness or weakness of the face, arm or leg, especially on one side of the body * Sudden confusion, trouble speaking or understanding * Sudden trouble seeing in one or both eyes * Sudden trouble walking, dizziness, loss of balance or coordination * Sudden severe headache with no cause Do not delay calling 911 if you experience any warning signs or symptoms of a stroke. Delay in seeking medical attention may affect what treatments can be given to you. . Pending Studies at Discharge: No Stand-Alone Forms: My [facility], Smoking Cessation Medications and DC Order Prescriptions: Continued pantoprazole [Protonix] 40 mg tablet,delayed release (DR/EC) 40 mg PO BID Qty: 60 RF: 2 aspirin 81 mg Tablet,Delayed Release (Dr/Ec) 81 mg PO QAM Qty: 90 RF: 1 clopidogrel 75 mg Tablet 75 mg PO QAM Qty: 30 RF: 3 [id number] Tablet 1 tab PO QAM RF: 0 Santyl 250 unit/gram ointment 1 applic topical QAM RF: 0 atorvastatin 40 mg tablet 40 mg PO QAM RF: 0 thiamine HCl (vitamin B1) [Vitamin B-1] 100 mg Tablet 100 mg PO QAM 30 Days Qty: 30 RF: 0 oxycodone-acetaminophen [Percocet] 5-325 mg Tablet 1 tab PO Q4H PRN (Reason: pain) Qty: 20 RF: 0 Changed amlodipine [Norvasc] 5 mg Tablet 2.5 mg PO BID Qty: 60 RF: 3 carvedilol 3.125 mg tablet 3.125 mg PO BID Qty: 60 RF: 2 Discontinued lisinopril 40 mg tablet 40 mg PO QAM Qty: 90 RF: 2 hydralazine 25 mg tablet 25 mg PO TID RF: 0 No Action hydralazine 25 mg tablet 25 mg PO TID RF: 0 sulfamethoxazole-trimethoprim [Bactrim DS] 800-160 mg tablet 1 tab PO BID RF: 0 lisinopril [Zestril] 40 mg tablet 40 mg PO QAM RF: 0 Discharge Orders: Discharge Order (Routine); Ordered 05/11/21 Ordered By: Brayden Meyer Admission Data Admit Date/Time: 05/07/21 21:24 Attending Provider: Brayden Meyer Admit Provider: Maribel Herrera Primary Care Provider: Go Landeros Other Providers: Em Mireles ; Neftali Tam ; Cash Baker ; [facility] Other Interventions: Discharge Summary Assessment (RN) Last Done: 05/11/21 16:44 Coding Level of Care Code D/C DAY MANAGEMENT >30 MINS Diagnoses Acute CVA (cerebrovascular accident) I63.9 Hypertension I10 Hypertension type: essential hypertension S/P carotid endarterectomy Z98.890 Tobacco abuse Z72.0 Alcohol use Z72.89 COPD with emphysema J43.9 Emphysema type: unspecified Cardiac arrest I46.9 AAA (abdominal aortic aneurysm) I71.4 Presence of rupture: without rupture History of duodenal ulcer Z87.19 Renal artery stenosis I70.1 Vasculopathy I99.9
--- NOTE | 2021-05-11 16:44 | Pharmacy Report ---
Pharmacist Stroke Counseling - Date of Service May 11, 2021 - Scope: Pharmacy has been consulted to provide medication discharge counseling for this patient admitted with a stroke as per the Pharmacist Discharge Counseling for Stroke Patients Protocol. - Medications on Discharge: Home Medications Medication Instructions Recorded Confirmed collagenase clostridium histo. 250 1 applic TOPICAL QAM 04/08/21 05/07/21 unit/gram topical ointment (Santyl) ookmgheizfyf-dtqzusbb-xfidjt tablet 1 tab PO QAM 04/08/21 05/07/21 acetaminophen 500 mg capsule 500 - 1,000 mg PO Q6H PRN 04/28/21 05/07/21 atorvastatin 40 mg tablet 40 mg PO QAM 04/28/21 05/07/21 New Rx's Medication Instructions Recorded aspirin 81 mg tablet,delayed 81 mg PO QAM #90 tab 04/01/21 release clopidogrel 75 mg tablet 75 mg PO QAM #30 tab 04/01/21 pantoprazole 40 mg tablet,delayed 40 mg PO BID #60 tab 04/11/21 release (Protonix) lisinopril 40 mg tablet 40 mg PO QAM #90 tab 04/25/21 amlodipine 5 mg tablet (Norvasc) 10 mg PO QAM #60 tab 05/07/21 folic acid 1 mg tablet 1 mg PO QAM 30 Days #30 tab 05/07/21 oxycodone-acetaminophen 5 mg-325 1 tab PO Q4H PRN #20 tab 05/07/21 mg tablet (Percocet) thiamine HCl (vitamin B1) 100 mg 100 mg PO QAM 30 Days #30 tab 05/07/21 tablet (Vitamin B-1) carvedilol 3.125 mg tablet 3.125 mg PO BID #60 tab 05/11/21 - Action: The above medications, specifically ones for stroke treatment/prophylaxis, have been reviewed in detail with the patient and/or patient safety representative(s) prior to discharge. This includes indication, common adverse reactions, drug interactions, and medication administration. Medication counseling has been employed using the teach-back method to ensure understanding. - Outcome: The patient and/or patient safety representative(s) have demonstrated understanding of the medications. Thank you for allowing pharmacy to be involved in the care of this patient. Please call [phone] with any additional questions
== END 2021-05-11 17:19 | disposition home health service (06) | DRG 65 ==
LOC: ED 19:18 → 2S 21:24 → SUATTDRO 21:24 → 2S 21:51
DX: I69.322 Dysarthria following cerebral infarction; Z86.74 Personal history of sudden cardiac arrest; R29.810 Facial weakness; I10 Essential (primary) hypertension; I63.232 Cerebral infarction due to unspecified occlusion or stenosis of left carotid arteries; K21.9 Gastro-esophageal reflux disease without esophagitis; Z83.3 Family history of diabetes mellitus; Z79.02 Long term (current) use of antithrombotics/antiplatelets; F17.210 Nicotine dependence, cigarettes, uncomplicated; R29.702 NIHSS score 2; Z72.89 Other problems related to lifestyle; J44.9 Chronic obstructive pulmonary disease, unspecified; I71.4 Abdominal aortic aneurysm, without rupture; G81.91 Hemiplegia, unspecified affecting right dominant side; I69.392 Facial weakness following cerebral infarction; I73.9 Peripheral vascular disease, unspecified; Z79.82 Long term (current) use of aspirin; I70.1 Atherosclerosis of renal artery; Z98.890 Other specified postprocedural states

== ENCOUNTER 2021-05-24 10:41 | Inpatient (IN) ==
--- NOTE | 2021-05-24 11:01 | Emergency Department Note ---
Impression & Plan Acute CVA (cerebrovascular accident), Facial droop, Anemia, Acute GI bleeding ED Provider Note NAME: DANE GLASGOW AGE: 66 SEX: F : 1955 ARRIVES VIA: Walk-In INFORMANT: Patient ED PROVIDER(S): Timur Rodriguez DO CHIEF COMPLAINT: Slurred speech, right-sided facial droop and right upper extremity weakness HPI: Patient is a 66-year-old female with a past medical history of peripheral artery disease with a recent carotid endarterectomy cardiac arrest and a stroke. She was discharged and presented to cardiology's office today and was found to have right upper extremity weakness, slurred speech and right-sided facial droop. She notes that she believes this started yesterday around 1600. She denies any headache or change in vision. No chest pain or shortness of breath. No nausea vomiting or diarrhea. No dysuria urgency or frequency. No other exacerbating or remitting factors. ROS: See above HPI for pertinent positives & negatives. A total of 10 systems reviewed and were otherwise negative. PAST MEDICAL HISTORY:See Below PAST SURGICAL HISTORY:See Below FAMILY HISTORY:See Below SOCIAL HISTORY:See Below HOME MEDICATIONS:See Below ALLERGIES:See Below VITALS:See Below PHYSICAL EXAMINATION: GENERAL: Sitting up in bed, alert, well appearing, well nourished, no distress, non-toxic EYE EXAM: normal conjunctiva. Left pupil is dilated and sluggishly reactive at 4 mm. Right pupil is 2 mm. OROPHARYNX: no exudate, no erythema, lips, buccal mucosa, and tongue normal and mucous membranes are moist NECK: supple, no nuchal rigidity, no adenopathy, non-tender LUNGS: Clear to auscultation. Normal chest wall mechanics HEART: no murmurs, S1 normal and S2 normal ABDOMEN: abdomen soft, non-tender, normo-active bowel sounds, no masses, no rebound or guarding. BACK: Back is symmetrical on inspection and there is no deformity, no midline tenderness, no CVA tenderness. RECTAL: Heme positive black stool. Performed with nurse at bedside. SKIN: no rashes and no bruising UPPER EXTREMITIES: upper extremities are grossly normal. LOWER EXTREMITIES: No pitting edema. NEURO EXAM: Normal sensorium, right-sided facial droop with slurred speech and weakness of the right upper extremity with grasp as well as flexion extension. Drift on the right side. No weakness in the lower extremities. MEDICAL DECISION MAKING: Patient is a 66-year-old female who presents the ER referred in by cardiology for slurred speech, right-sided facial droop, trouble ambulating following a recent stroke and cardiac arrest. IV was established blood work was obtained. Labs show mild anemia at 7.4 which is trended down from baseline of 10. INR was unremarkable. BMP with LFTs bilirubin and troponin was negative. Covid was negative. CT head as well as angios of the head neck showed no acute pathology. Patient's pressure remained elevated and we allow for permissive hypertension. When she fell she did not hit her chest or belly. She only hit her arm. Rectally she is heme positive with black stool which has been present for some time now. She was typed and screened. Did discuss with Dr. So. He recommended holding on transfusion. Triage Nursing notes reviewed. Limited review of prior medical records performed Vital Signs: reviewed and remarkable for HTN Differential diagnosis: Differential Diagnosis includes but is not limited to ischemic Stroke, hemorrhagic stroke, bells palsy, mass, neoplasm, migraine headache, seizure, subarachnoid hemorrhage, TIA, and transient global amnesia. ER treatment provided: See below Diagnostics interpreted by me: ECG: Sinus rhythm rate 85 Normal axis No PVCs QTC 445 Cardiac Monitoring: An order was placed for continuous cardiac monitoring. The monitor shows a rate of 82 with sinus rhythm. Laboratory studies: As stated above and show below. Imaging studies: CT as well as angios of the head and neck were unchanged from previous Consultation(s): Discussed with Dr. Diogo So for further evaluation Procedures: none Critical Care: None Past Med/Surg History Medical History Acute CVA (cerebrovascular accident) Carotid artery disease Dizziness Recently admitted 03/30/21-04/01/21 Possibly related to HTN GERD (gastroesophageal reflux disease) UNDER CONTROL Hypertension Hypertensive urgency Ischemic ulcer of right foot Follows with [facility]ound [facility] Left renal mass Left side- per 04/15/21 MRI= 1.6 x 1.0 cm or slightly exophytic focus within the lateral aspect of the left kidney.- worrisome for RCC per records- pt will follow up as outpatient PAD (peripheral artery disease) S/p stent to right LE February 2021 with SANDY Bilateral iliac artery stenosis Tobacco abuse Vasculopathy Surgical History H/O carotid endarterectomy H/O exploratory laparotomy (01/22/21) Exploratory laparotomy, oversew perforated duodenal ulcer, abdominal washout. Dr. Craig 01/22/2021 H/O tubal ligation H/O vascular surgery 2 stents to right leg [facility] February 2021 History of colonoscopy [place] teeth extracted Family History Mother , age 70 of lung cancer Diabetes Lung cancer Hypertension Father , age 52 of complications of vascular surgery. Lung cancer PAD (peripheral artery disease) Denies family history of Ovarian cancer Prostate cancer Myocardial infarction Breast cancer Colorectal cancer Social History Smoking Status: Current every day smoker Tobacco Type: Cigarettes Age Started Using Tobacco: 27; packs per day: 1; Cigarettes Per Day: 20; Second Hand Exposure: No; Hx Alcohol Use: Yes Alcohol type: beer Alcohol Intake Frequency: 4 or More x per/Week Alcohol Intake Frequency Comment: 2-3 beers daily or more Hx Substance Use: No Preferred Language: Ukrainian Communication Ability: Effective Visual Impairment: Limited Hearing Ability: Normal 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 Beliefs That Will Affect Care: None marital status: Current Living Situation: Spouse current occupational status: employed current occupation: [employer] How many Children do You have: 2 Feels Safe at Home: Yes Childhood Exposure to Second-Hand Smoke: Yes caffeine: Yes during the past year weight has: remained stable Dental Care, Regularly: No Physical Activity Frequency: Does not Exercise Physical Activity Frequency Comment: on feet at work all day Seatbelt Use: always Sunscreen Use: No Assistive Devices: None Allergies Allergies Allergy/AdvReac Type Severity Reaction Status Date / Time No Known Allergies Allergy Mild Verified 05/24/21 12:16 Home Meds Home Medications Medication Instructions Recorded Confirmed collagenase clostridium histo. 250 1 applic TOPICAL QAM 04/08/21 05/24/21 unit/gram topical ointment (Santyl) doaozzkdtjkk-mgniglxe-kbyysq tablet 1 tab PO QAM 04/08/21 05/24/21 atorvastatin 40 mg tablet 40 mg PO QAM 04/28/21 05/24/21 hydralazine 25 mg tablet 25 mg PO TID 05/24/21 05/24/21 lisinopril 40 mg tablet (Zestril) 40 mg PO QAM 05/24/21 05/24/21 sulfamethoxazole 800 1 tab PO BID 05/24/21 05/24/21 mg-trimethoprim 160 mg tablet (Bactrim DS) Previous Rx's Medication Instructions Recorded aspirin 81 mg tablet,delayed 81 mg PO QAM #90 tab 04/01/21 release clopidogrel 75 mg tablet 75 mg PO QAM #30 tab 04/01/21 pantoprazole 40 mg tablet,delayed 40 mg PO BID #60 tab 04/11/21 release (Protonix) oxycodone-acetaminophen 5 mg-325 1 tab PO Q4H PRN #20 tab 05/07/21 mg tablet (Percocet) thiamine HCl (vitamin B1) 100 mg 100 mg PO QAM 30 Days #30 tab 05/07/21 tablet (Vitamin B-1) amlodipine 5 mg tablet (Norvasc) 2.5 mg PO BID #60 tab 05/11/21 carvedilol 3.125 mg tablet 3.125 mg PO BID #60 tab 05/11/21 Results & Data (ED) Vital Signs Vital Signs - 24 hr 05/24/21 10:44 05/24/21 10:58 05/24/21 11:30 Temperature 36.8 C Temperature Source Temporal Artery Scan Pulse Rate 164 H Pulse Rate [Apical] 83 67 Pulse Rhythm [Apical] Regular Regular Pulse Strength [Apical] Respiratory Rate 18 16 16 Respiratory Effort / Characteristics Non-Labored Non-Labored Respiratory Depth Normal Normal Blood Pressure 154/69 H Blood Pressure [Left Arm] 184/75 H 152/74 H Blood Pressure Mean 97 Blood Pressure Mean [Left Arm] 111 100 Blood Pressure Position Sitting Pulse Oximetry 100 95 95 Oxygen Delivery Method Room Air Room Air Room Air Sepsis Recent Fever Within 48 Hours No Sepsis New/Unexplained Change in Mental Status No Sepsis Action Taken by Nursing No Action Required 05/24/21 13:00 Temperature Temperature Source Pulse Rate Pulse Rate [Apical] 82 Pulse Rhythm [Apical] Regular Pulse Strength [Apical] Normal Respiratory Rate 16 Respiratory Effort / Characteristics Non-Labored Respiratory Depth Normal Blood Pressure Blood Pressure [Left Arm] 196/79 H Blood Pressure Mean Blood Pressure Mean [Left Arm] 118 Blood Pressure Position Pulse Oximetry 99 Oxygen Delivery Method Room Air Sepsis Recent Fever Within 48 Hours Sepsis New/Unexplained Change in Mental Status Sepsis Action Taken by Nursing Laboratory Data Result diagrams: 05/24/21 11:02 05/24/21 11:02 Lab Results 05/24/21 05/24/21 05/24/21 Range/Units 11:02 11:02 11:02 WBC 8.42 (4.8-10.8) K/uL RBC 2.40 L (4.2-5.4) M/uL Hgb 7.4 L (12.0-16.0) g/dL POC Hgb (12.0-16.0) g/dl Hct 22.8 L (37-47) % POC Hct (37-47) % MCV 95.0 (80-100) fL MCH 30.8 (25-34) pg MCHC 32.5 (32-36) g/dL RDW Std Deviation 50.1 H (36.4-46.3) fL RDW Coeff of Odette 14.3 (11.5-14.5) % Plt Count 418 H (130-400) K/uL MPV 8.3 (7.4-10.4) fL Immature Gran % (Auto) 0.2 % Neut % (Auto) 81.0 % Lymph % (Auto) 11.6 % [place] % (Auto) 5.8 % Eos % (Auto) 0.7 % Baso % (Auto) 0.7 % Neut # (Auto) 6.81 H (1.4-6.5) K/uL Lymph # (Auto) 0.98 L (1.2-3.4) K/uL [place] # (Auto) 0.49 (0.11-0.59) K/uL Eos # (Auto) 0.06 (0-0.5) K/uL Baso # (Auto) 0.06 (0-0.2) K/uL Immature Gran # (Auto) 0.02 (0.00-0.02) K/uL PT 10.0 (9.0-12.0) Seconds INR 1.0 (0.9-1.1) APTT 21.4 (21.0-31.0) Seconds PTT Ratio 0.8 POC Sodium (135-144) mmol/L Sodium 136 (136-145) mmol/L POC Potassium (3.3-5.0) mmol/L Potassium 4.0 (3.5-5.1) mmol/L POC Chloride (101-112) mmol/L Chloride 104 (98-107) mmol/L Carbon Dioxide 26 (21-32) mmol/L POC Total CO2 (24-31) mmol/L Anion Gap 6.0 (3-11) POC Anion Gap (16-25) mmol/L POC BUN (7-18) mg/dl BUN 14 (7-18) mg/dl Creatinine 0.82 (0.6-1.2) mg/dl POC Creatinine (0.6-1.3) mg/dl Est Cr Clr Drug Dosing 46.2 ml/min Est GFR ( Amer) 87.6 ml/min Est GFR (Non-Af Amer) 75.6 ml/min BUN/Creatinine Ratio 17.5 (10-20) Glucose 101 H (70-99) mg/dl POC Glucose (other) (70-99) mg/dl Calcium 9.2 (8.5-10.1) mg/dl POC Ioniz Calcium Skyler (1.12-1.32) mmol/l Magnesium 2.1 (1.8-2.4) mg/dl Total Bilirubin 0.3 (0.2-1) mg/dl AST 21 (15-37) U/L ALT 30 (12-78) U/L Alkaline Phosphatase 104 (45-117) U/L Troponin I < 0.015 (0-0.045) ng/ml Total Protein 7.3 (6.4-8.2) gm/dl Albumin 3.5 (3.4-5.0) gm/dl Globulin 3.8 (2.5-4.0) gm/dl Albumin/Globulin Ratio 0.9 (0.9-2) COVID-19 Eval Order SARS-CoV-2 (PCR) (Negative) 05/24/21 05/24/21 05/24/21 Range/Units 11:03 11:30 11:30 WBC (4.8-10.8) K/uL RBC (4.2-5.4) M/uL Hgb (12.0-16.0) g/dL POC Hgb 8.2 L (12.0-16.0) g/dl Hct (37-47) % POC Hct 24 L (37-47) % MCV (80-100) fL MCH (25-34) pg MCHC (32-36) g/dL RDW Std Deviation (36.4-46.3) fL RDW Coeff of Odette (11.5-14.5) % Plt Count (130-400) K/uL MPV (7.4-10.4) fL Immature Gran % (Auto) % Neut % (Auto) % Lymph % (Auto) % [place] % (Auto) % Eos % (Auto) % Baso % (Auto) % Neut # (Auto) (1.4-6.5) K/uL Lymph # (Auto) (1.2-3.4) K/uL [place] # (Auto) (0.11-0.59) K/uL Eos # (Auto) (0-0.5) K/uL Baso # (Auto) (0-0.2) K/uL Immature Gran # (Auto) (0.00-0.02) K/uL PT (9.0-12.0) Seconds INR (0.9-1.1) APTT (21.0-31.0) Seconds PTT Ratio POC Sodium 136 (135-144) mmol/L Sodium (136-145) mmol/L POC Potassium 4.1 (3.3-5.0) mmol/L Potassium (3.5-5.1) mmol/L POC Chloride 100 L (101-112) mmol/L Chloride (98-107) mmol/L Carbon Dioxide (21-32) mmol/L POC Total CO2 25 (24-31) mmol/L Anion Gap (3-11) POC Anion Gap 16.0 (16-25) mmol/L POC BUN 14 (7-18) mg/dl BUN (7-18) mg/dl Creatinine (0.6-1.2) mg/dl POC Creatinine 0.8 (0.6-1.3) mg/dl Est Cr Clr Drug Dosing ml/min Est GFR ( Amer) ml/min Est GFR (Non-Af Amer) ml/min BUN/Creatinine Ratio (10-20) Glucose (70-99) mg/dl POC Glucose (other) 104 H (70-99) mg/dl Calcium (8.5-10.1) mg/dl POC Ioniz Calcium Skyler 1.23 (1.12-1.32) mmol/l Magnesium (1.8-2.4) mg/dl Total Bilirubin (0.2-1) mg/dl AST (15-37) U/L ALT (12-78) U/L Alkaline Phosphatase (45-117) U/L Troponin I (0-0.045) ng/ml Total Protein (6.4-8.2) gm/dl Albumin (3.4-5.0) gm/dl Globulin (2.5-4.0) gm/dl Albumin/Globulin Ratio (0.9-2) COVID-19 Eval Order Covid19 at [facility] SARS-CoV-2 (PCR) NEGATIVE (Negative) Administered Medications Discontinued Medications Sodium Chloride (Nss) 500 mls @ 999 mls/hr IV .Q31M ONE Stop: 05/24/21 11:38 Last Infusion: 05/24/21 13:15 Dose: 0 mls/hr Documented by: [id number] Admin: 05/24/21 12:06 Dose: 999 mls/hr Documented by: [id number] Ioversol (Optiray 320 125ml) 120 ml IV ONCE ONE Stop: 05/24/21 11:13 Last Admin: 05/24/21 11:12 Dose: 120 ml Documented by: [id number] Imaging Data Radiologist's Impression: Chest X-Ray 05/24/21 11:07 XR chest 1V portable HISTORY: 66 years-old Female Stroke Like Symptoms acute strokelike symptoms COMPARISON: Chest radiograph 05/07/2021 TECHNIQUE: Portable AP view of the chest FINDINGS: Cardiomediastinal and hilar silhouettes are within normal limits. No pneumotho rax, pleural effusion, airspace consolidation or overt pulmonary edema. The bones of the chest appear grossly intact. IMPRESSION: No acute process. ACT 112: Negative or not required by law. The above report was generated using voice recognition software. It may contain grammatical, syntax or spelling errors. Electronically signed by: Earle Rankin M.D. 05/24/2021 11:[address] 05/24/21 11:07 CT head/brain wo con CLINICAL HISTORY: 66 years-old Female with Stroke Like Symptoms. Acutely altered mental status with strokelike symptoms TECHNIQUE: Multiple axial CT images of the head were obtained without contrast. A dose lowering technique was utilized adhering to the principles of ALARA. CT DOSE: 863.65 mGy.cm COMPARISON: Head CT 05/09/2021, brain MRI 05/07/2021. FINDINGS: No acute intracranial hemorrhage, midline shift, intracranial mass, hydrocephalus, territorial ischemia or abnormal extra-axial collection. Subacute infarct within the left lateral nucleus/internal capsule redemonstrated. 1.5 cm area of ill-defined low-attenuation involving the left frontal lobe centrum semiovale on image 17 is new/progressed from comparison. The calvarium is intact. The paranasal sinuses, mastoid air cells, and middle ear cavities are clear. IMPRESSION: 1. 1.5 cm area of ill-defined low-attenuation involving the left frontal lobe centrum semiovale is new from the 05/09/[address] and is within an area of acute infarct described on the brain MRI from 05/07/2021, likely representing progressive cytotoxic edema. 2. 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 3. No acute territorial infarct or intracranial hemorrhage. ACT 112: Negative or not required by law. The above report was generated using voice recognition software. It may contain grammatical, syntax or spelling errors. Electronically signed by: Earle Rankin M.D. 05/24/2021 11:29 AM Head CTA 05/24/21 11:07 CT angio head w con, CT angio neck with con CLINICAL HISTORY: 66 years-old Female with Stroke Like Symptoms. Acute strokelike symptoms. Prior right carotid endarterectomy. COMPARISON STUDY: Head CT of same day, CTA head and neck 05/07/2021, brain MRI 05/07/2021 TECHNIQUE: Following the IV administration of 120 cc of Optiray, CT angiogram of the head and neck was performed from the aortic arch to the skull apex. Images are reviewed in the axial, sagittal, and coronal planes. 3-D MIPS images are created and assessed. IV contrast was administered without complication. All measurements were obtained according to NASCET criteria. A dose lowering technique was utilized adhering to the principles of ALARA. FINDINGS: Atherosclerosis of the thoracic aortic arch. Patency of the innominate and imaged subclavian arteries. 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 Severe mixed plaque of the left carotid bulb and proximal left ICA. Reconstitution of flow within the proximal cervical segment left ICA with trickle flow appears similar to comparison. The right common carotid artery is patent. There is mild luminal narrowing and irregularity of the distal right common carotid artery which is unchanged. Postoperative changes of prior right carotid endarterectomy with high-grade stenosis involving the proximal aspect of the right external carotid artery, unchanged. There is luminal irregularity without high-grade stenosis involving the proximal mid cervical segments of the right ICA. Mild multifocal luminal narrowing of the middle cerebral arteries. The middle and anterior cerebral arteries appear patent. Codominant and patent vertebral arteries. Mixed plaque at the origin of the vertebral arteries results in at least moderate luminal narrowing bilaterally. The basilar and posterior cerebral arteries are patent. The cerebral venous sinuses are patent. There is no abnormal intracranial enhancement. Subacute infarcts of the left vertebral convexity are better seen on the head CT of same day. IMPRESSION: 1. 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 2. Postoperative changes of prior right carotid endarterectomy. Luminal irregularity with mild narrowing involving the proximal and mid cervical segments of the right ICA is also unchanged. 3. High-grade stenosis of the proximal right external carotid artery is unchanged. ACT 112: Negative or not required by law. The above report was generated using voice recognition software. It may contain grammatical, syntax or spelling errors. Electronically signed by: Earle Rankin M.D. 05/24/2021 11:40 AM Neck CTA 05/24/21 11:07 CT angio head w con, CT angio neck with con CLINICAL HISTORY: 66 years-old Female with Stroke Like Symptoms. Acute strokelike symptoms. Prior right carotid endarterectomy. COMPARISON STUDY: Head CT of same day, CTA head and neck 05/07/2021, brain MRI 05/07/2021 TECHNIQUE: Following the IV administration of 120 cc of Optiray, CT angiogram of the head and neck was performed from the aortic arch to the skull apex. Images are reviewed in the axial, sagittal, and coronal planes. 3-D MIPS images are created and assessed. IV contrast was administered without complication. All measurements were obtained according to NASCET criteria. A dose lowering technique was utilized adhering to the principles of ALARA. FINDINGS: Atherosclerosis of the thoracic aortic arch. Patency of the innominate and imaged subclavian arteries. 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 Severe mixed plaque of the left carotid bulb and proximal left ICA. Reconstitution of flow within the proximal cervical segment left ICA with trickle flow appears similar to comparison. The right common carotid artery is patent. There is mild luminal narrowing and irregularity of the distal right common carotid artery which is unchanged. Postoperative changes of prior right carotid endarterectomy with high-grade stenosis involving the proximal aspect of the right external carotid artery, unchanged. There is luminal irregularity without high-grade stenosis involving the proximal mid cervical segments of the right ICA. Mild multifocal luminal narrowing of the middle cerebral arteries. The middle and anterior cerebral arteries appear patent. Codominant and patent vertebral arteries. Mixed plaque at the origin of the vertebral arteries results in at least moderate luminal narrowing bilaterally. The basilar and posterior cerebral arteries are patent. The cerebral venous sinuses are patent. There is no abnormal intracranial enhancement. Subacute infarcts of the left vertebral convexity are better seen on the head CT of same day. IMPRESSION: 1. 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 2. Postoperative changes of prior right carotid endarterectomy. Luminal irregularity with mild narrowing involving the proximal and mid cervical segments of the right ICA is also unchanged. 3. High-grade stenosis of the proximal right external carotid artery is unchanged. ACT 112: Negative or not required by law. The above report was generated using voice recognition software. It may contain grammatical, syntax or spelling errors. Electronically signed by: Earle Rankin M.D. 05/24/2021 11:40 AM Discharge Plan Visit Data Chief Complaint: Stroke/CVA Symptoms Stated Complaint: LOST CONTROL OF R SIDE/SLURRED SPEECH ED Provider: Timur Rodriguez Discharge Problem: Acute CVA (cerebrovascular accident), Facial droop, Anemia, Acute GI bleeding Forms Stand Alone Forms: [facility] [id number] Prescriptions Prescriptions: No Action pantoprazole [Protonix] 40 mg tablet,delayed release (DR/EC) 40 mg PO BID Qty: 60 RF: 2 aspirin 81 mg Tablet,Delayed Release (Dr/Ec) 81 mg PO QAM Qty: 90 RF: 1 clopidogrel 75 mg Tablet 75 mg PO QAM Qty: 30 RF: 3 rqoxncmrarcr-onkzaley-ynktub Tablet 1 tab PO QAM RF: 0 Santyl 250 unit/gram ointment 1 applic topical QAM RF: 0 amlodipine [Norvasc] 5 mg Tablet 2.5 mg PO BID Qty: 60 RF: 3 carvedilol 3.125 mg tablet 3.125 mg PO BID Qty: 60 RF: 2 hydralazine 25 mg tablet 25 mg PO TID RF: 0 sulfamethoxazole-trimethoprim [Bactrim DS] 800-160 mg tablet 1 tab PO BID RF: 0 lisinopril [Zestril] 40 mg tablet 40 mg PO QAM RF: 0 atorvastatin 40 mg tablet 40 mg PO QAM RF: 0 thiamine HCl (vitamin B1) [Vitamin B-1] 100 mg Tablet 100 mg PO QAM 30 Days Qty: 30 RF: 0 oxycodone-acetaminophen [Percocet] 5-325 mg Tablet 1 tab PO Q4H PRN (Reason: pain) Qty: 20 RF: 0 Referrals Referrals: Go Landeros CRNP [Primary Care Provider] - Discharge Problem: Anemia Qualifiers: Anemia type: unspecified type Qualified Code(s): D64.9 - Anemia, unspecified
[2021-05-24] MEDS ORDERED: SODIUM CHLORIDE 0.9% 500 ML IV ONE (11:08)
[2021-05-24] MEDS ORDERED: OPTIRAY 320 125ml IV ONE (11:12)
[2021-05-24 11:15] LABS: iSTAT Creatinine 0.8 mg/dl (0.6-1.3); iSTAT Hemoglobin 8.2 g/dl (12.0-16.0); iSTAT Ionized Calcium 1.23 mmol/l (1.12-1.32); iSTAT Potassium 4.1 mmol/L (3.3-5.0)
[2021-05-24 11:17] LABS: Basophils # (auto) 0.06 K/uL (0-0.2); Basophils % (auto) 0.7 %; Eosinophils # (auto) 0.06 K/uL (0-0.5); Eosinophils % (auto) 0.7 %; Hematocrit (blood only) 22.8 % (37-47); Hemoglobin 7.4 g/dL (12.0-16.0); Immature Granulocytes # (auto) 0.02 K/uL (0.00-0.02); Immature Granulocytes % (auto) 0.2 %; Lymphocytes # (auto) 0.98 K/uL (1.2-3.4); Lymphocytes % (auto) 11.6 %; Mean Corpuscular Hemoglobin 30.8 pg (25-34); Mean Corpuscular Hgb Conc 32.5 g/dL (32-36); Mean Platelet Volume 8.3 fL (7.4-10.4); Monocytes # (auto) 0.49 K/uL (0.11-0.59); Monocytes % (auto) 5.8 %; Neutrophils # (auto) 6.81 K/uL (1.4-6.5); Platelet Count 418 K/uL (130-400); RDW Coefficient of Variation 14.3 % (11.5-14.5); RDW Standard Deviation 50.1 fL (36.4-46.3); White Blood Count 8.42 K/uL (4.8-10.8)
[2021-05-24 11:29] LABS: Partial Thromboplastin Ratio 0.8; Partial Thromboplastin Time 21.4 Seconds (21.0-31.0)
--- NOTE | 2021-05-24 11:30 | CT Scan Report ---
CT head/brain wo con CLINICAL HISTORY: 66 years-old Female with Stroke Like Symptoms. Acutely altered mental status with strokelike symptoms TECHNIQUE: Multiple axial CT images of the head were obtained without contrast. A dose lowering tech nique was utilized adhering to the principles of ALARA. CT DOSE: 863.65 mGy.cm COMPARISON: Head CT 05/09/2021, brain MRI 05/07/2021. FINDINGS: No acute intracranial hemorrhage, midline shift, intracranial mass, hydrocephalus, territorial ischem ia or abnormal extra-axial collection. Subacute infarct within the left lateral nucleus/internal caps ule redemonstrated. 1.5 cm area of ill-defined low-attenuation involving the left frontal lobe centru m semiovale on image 17 is new/progressed from comparison. The calvarium is intact. The paranasal sinuses, mastoid air cells, and middle ear cavities are clear . IMPRESSION: 1. 1.5 cm area of ill-defined low-attenuation involving the left frontal lobe centrum semiovale is ne w from the 05/09/[address] and is within an area of acute infarct described on the brain MRI from , likely representing progressive cytotoxic edema. 2. 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 3. No acute territorial infarct or intracranial hemorrhage. ACT 112: Negative or not required by law. The above report was generated using voice recognition software. It may contain grammatical, syntax o r spelling errors. Electronically signed by: Earle Rankin M.D. 05/24/2021 11:29 AM
[2021-05-24 11:34] LABS: Alanine Aminotransferase 30 U/L (12-78); Albumin Level 3.5 gm/dl (3.4-5.0); Aspartate Aminotransferase 21 U/L (15-37); BUN Creatinine Ratio 17.5 (10-20); Blood Urea Nitrogen 14 mg/dl (7-18); Calcium 9.2 mg/dl (8.5-10.1); Carbon Dioxide 26 mmol/L (21-32); Chloride 104 mmol/L (98-107); Creatinine Clr Calc Pharmacy 46.2 ml/min; Est GFR (African American) 87.6 ml/min; Est GFR (Non-African American) 75.6 ml/min; Glucose 101 mg/dl (70-99); Magnesium 2.1 mg/dl (1.8-2.4); Sodium 136 mmol/L (136-145)
[2021-05-24 11:39] LABS: Albumin Globulin Ratio 0.9 (0.9-2); Alkaline Phosphatase 104 U/L (45-117); Bilirubin,Total 0.3 mg/dl (0.2-1); Globulin 3.8 gm/dl (2.5-4.0); Total Protein 7.3 gm/dl (6.4-8.2); Troponin I < 0.015 ng/ml (0-0.045)
--- NOTE | 2021-05-24 11:41 | CT Scan Report ---
CT angio head w con, CT angio neck with con CLINICAL HISTORY: 66 years-old Female with Stroke Like Symptoms. Acute strokelike symptoms. Prior right carotid endarterectomy. COMPARISON STUDY: Head CT of same day, CTA head and neck 05/07/2021, brain MRI 05/07/2021 TECHNIQUE: Following the IV administration of 120 cc of Optiray, CT angiogram of the head and neck wa s performed from the aortic arch to the skull apex. Images are reviewed in the axial, sagittal, and c oronal planes. 3-D MIPS images are created and assessed. IV contrast was administered without complic ation. All measurements were obtained according to NASCET criteria. A dose lowering technique was uti lized adhering to the principles of ALARA. FINDINGS: Atherosclerosis of the thoracic aortic arch. Patency of the innominate and imaged subclavian arteries . 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 Severe mixed plaque of the left carotid bulb and proximal left ICA. Reconstituti on of flow within the proximal cervical segment left ICA with trickle flow appears similar to compari son. The right common carotid artery is patent. There is mild luminal narrowing and irregularity of t he distal right common carotid artery which is unchanged. Postoperative changes of prior right caroti d endarterectomy with high-grade stenosis involving the proximal aspect of the right external carotid artery, unchanged. There is luminal irregularity without high-grade stenosis involving the proximal mid cervical segments of the right ICA. Mild multifocal luminal narrowing of the middle cerebral wily cordelia. The middle and anterior cerebral arteries appear patent. Codominant and patent vertebral arteries. Mixed plaque at the origin of the vertebral arteries result s in at least moderate luminal narrowing bilaterally. The basilar and posterior cerebral arteries are patent. The cerebral venous sinuses are patent. There is no abnormal intracranial enhancement. [place]ac [place] infarcts of the left vertebral convexity are better seen on the head CT of same day. IMPRESSION: 1. 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 2. Postoperative changes of prior right carotid endarterectomy. Luminal irregularity with mild narrow ing involving the proximal and mid cervical segments of the right ICA is also unchanged. 3. High-grade stenosis of the proximal right external carotid artery is unchanged. ACT 112: Negative or not required by law. The above report was generated using voice recognition software. It may contain grammatical, syntax o r spelling errors. Electronically signed by: Earle Rankin M.D. 05/24/2021 11:40 AM
--- NOTE | 2021-05-24 11:43 | XRay Report ---
XR chest 1V portable HISTORY: 66 years-old Female Stroke Like Symptoms acute strokelike symptoms COMPARISON: Chest radiograph 05/07/2021 TECHNIQUE: Portable AP view of the chest FINDINGS: Cardiomediastinal and hilar silhouettes are within normal limits. No pneumothorax, pleural effusion, airspace consolidation or overt pulmonary edema. The bones of the chest appear grossly intact. IMPRESSION: No acute process. ACT 112: Negative or not required by law. The above report was generated using voice recognition software. It may contain grammatical, syntax o r spelling errors. Electronically signed by: Earle Rankin M.D. 05/24/2021 11:41 AM
--- NOTE | 2021-05-24 14:09 | History & Physical Report ---
Date of Service May 24, 2021 Assessment & Plan (1) Acute CVA (cerebrovascular accident): Plan: 1.5 cm area of ill-defined low-attenuation involving the left frontal lobe centrum semiovale is new from the 05/09/[address] and is within an area of acute infarct described on the brain MRI from 05/07/2021, likely representing progressive cytotoxic edema. Subacute infarct of the left basal ganglia remonstrated. - Acute on chronic CVA- Left ICA occlusion - MRI of the brain completed - Follow up with [facility] for evaluation for possible intervention based treatment- Reveiwed imaging with [facility] following completiion of MRI at 1600- Patient has been accepted to [facility] to ICU via Dr. Joseph - ASA and Plavix continue for now- pending MRI - Permissive HTN - Continue statin - [employer] for dysphagia screening- ASA rectally if unable to take PO (2) Hypertension: Plan: Hold home antihypertensives as above - Continue Carvedilol (3) CVA (cerebral vascular accident): Plan: [id number] CVA subacute infarct within the left centrum semiovale of the left frontal lobe with extension into the caudate and lentiform nuclei with associated laminar necrosis and petechial hemorrhage. [id number]- acute left basal ganglia lacunar stroke - ASA and Plavix - As above- evaluate for intervention for this relatively young female with reoccurring cerebral emboli (4) Chronic pain: Plan: Continue tylenol and percocet (5) Right foot ulcer: Plan: See wound care recommendations from the 12July - Continue wound care orders (6) PAD (peripheral artery disease): Plan: As above- (7) Carotid artery disease: Plan: S/P Rt. CEA with CVA and brief introperative arrest - LT ICA- Complete occlusion of the left common carotid artery with reconstitution of trickle flow within the left ICA, unchanged from 05/07/2021. - deemed non-surgical candidate via vascular surgery secondary to complete occlusion (8) Tobacco abuse: Plan: Patient continues to smoke- 1 pack per day - does not want nicotine patch - smoking cessation needed - This is gravely increasing her morbidity History of Present Illness Primary Care Provider: LAKSHMI Garza 65 YOF with past medical history of: CVA, GERD, HTN, HLD, COPD, smoker, PAD, chronic wound of right foot. Patient had a left basal ganglia lacunar stroke on 05 May, following a right CEA for carotid artery stenosis, she was started on ASA and Plavix. On May 07 the patient returned to the [facility] shortly after discharge with worsening right sided facial droop and right sided weakness, her imaging at that time revealed a total occlusion of her left ICA with trickle flow (that was previously noted as 60%), and a subacute infarct within left centrum semiovale of the left frontal lobe and extension into caudate and lentiform with laminar necrosis and petechiae hemorrhage she had a short dose of Aggrenox therapy and was evaluated by vascular surgery and neurology. She was felt to not be a surgical candidate secondary to total occlusion of the Left ICA and from a nurological standpoint, her symptoms were improving and was placed back to ASA and Plavix therapy as well as maintaining SBP goals 140-160. As above her symptoms started yesterday around 1600 per the patient, which she noticed difficulty swallowing, forming sentences and speaking as well as wors ening of her right sided weakness. Today her CT of the head reveals a 1.5 cm area of ill-defined low-attenuation involving the left frontal lobe centrum semiovale is new from the 05/09/[address] and is within an area of acute infarct described on the brain MRI from 05/07/2021, likely representing progressive cytotoxic edema. With her CTA of the head and neck not showing any acute changes. The patient NIHSS at this time is 5, with dysarthria and mild expressive aphasia noted. Due to the fact that patient continues to have these episodes of right sided involvement in the setting of left ICA occlusion, will reach out to [facility] for interventional neurology/neurology evaluation for possible intervention. Recommendation at this time is to obtain MRI of the brain and re- convene with the findings from the MRI. Patient will be admitted and continued on stroke protocol to include permissive HTN, [employer], PT/OT, and have reviewed the case with Dr. Tam. Continue ASA and Plavix for now pending the MRI. Patient also has a chronic right foot ulceration of her right great metatarsal. Normally cleansed with saline and layer of Santyl to 2x2 and apply to the wound and secure with OPTIfoam daily and is on Bactrim for this. Please bill as a consult level 4 as patient was accepted by [facility] in the interim of admission. Allergies Allergy/AdvReac Type Severity Reaction Status Date / Time No Known Allergies Allergy Mild Verified 05/24/21 12:16 Home Medications Medication Instructions Recorded Confirmed Type aspirin 81 mg tablet,delayed 81 mg PO QAM #90 tab 04/01/21 05/24/21 Rx release clopidogrel 75 mg tablet 75 mg PO QAM #30 tab 04/01/21 05/24/21 Rx collagenase clostridium histo. 250 1 applic TOPICAL QAM 04/08/21 05/24/21 History unit/gram topical ointment (Santyl) aulajmwygoli-gyrpfimd-folvgt tablet 1 tab PO QAM 04/08/21 05/24/21 History pantoprazole 40 mg tablet,delayed 40 mg PO BID #60 tab 04/11/21 05/24/21 Rx release (Protonix) atorvastatin 40 mg tablet 40 mg PO QAM 04/28/21 05/24/21 History oxycodone-acetaminophen 5 mg-325 1 tab PO Q4H PRN #20 tab 05/07/21 05/24/21 Rx mg tablet (Percocet) thiamine HCl (vitamin B1) 100 mg 100 mg PO QAM 30 Days #30 tab 05/07/21 05/24/21 Rx tablet (Vitamin B-1) amlodipine 5 mg tablet (Norvasc) 2.5 mg PO BID #60 tab 05/11/21 05/24/21 Rx carvedilol 3.125 mg tablet 3.125 mg PO BID #60 tab 05/11/21 05/24/21 Rx hydralazine 25 mg tablet 25 mg PO TID 05/24/21 05/24/21 History lisinopril 40 mg tablet (Zestril) 40 mg PO QAM 05/24/21 05/24/21 History sulfamethoxazole 800 1 tab PO BID 05/24/21 05/24/21 History mg-trimethoprim 160 mg tablet (Bactrim DS) Past Med/Surg History Medical History (Updated 05/24/21 @ 14:44 by LAKSHMI Kwon) Acute CVA (cerebrovascular accident) Carotid artery disease Dizziness Recently admitted 03/30/21-04/01/21 Possibly related to HTN GERD (gastroesophageal reflux disease) UNDER CONTROL Hypertension Hypertensive urgency Ischemic ulcer of right foot Follows with Wound Clinic Left renal mass Left side- per 04/15/21 MRI= 1.6 x 1.0 cm or slightly exophytic focus within the lateral aspect of the left kidney.- worrisome for RCC per records- pt will follow up as outpatient PAD (peripheral artery disease) S/p stent to right LE February 2021 with [facility] Bilateral iliac artery stenosis Tobacco abuse Vasculopathy Surgical History H/O carotid endarterectomy H/O exploratory laparotomy (01/22/21) Exploratory laparotomy, oversew perforated duodenal ulcer, abdominal washout. Dr. Craig 01/22/2021 H/O tubal ligation H/O vascular surgery 2 stents to right leg [facility] February 2021 History of colonoscopy [place] teeth extracted Family History Mother , age 70 of lung cancer Diabetes Lung cancer Hypertension Father , age 52 of complications of vascular surgery. Lung cancer PAD (peripheral artery disease) Denies family history of Ovarian cancer Prostate cancer Myocardial infarction Breast cancer Colorectal cancer Social History Smoking Status: Current every day smoker Tobacco Type: Cigarettes Age Started Using Tobacco: 27; packs per day: 1; Cigarettes Per Day: 20; Second Hand Exposure: No; Hx Alcohol Use: Yes Alcohol type: beer Alcohol Intake Frequency: 4 or More x per/Week Alcohol Intake Frequency Comment: 2-3 beers daily or more Hx Substance Use: No Preferred Language: Lao Communication Ability: Effective Visual Impairment: Limited Hearing Ability: Normal Post Form Remover Required: No Beliefs That Will Affect Care: None marital status: Current Living Situation: Spouse current occupational status: employed current occupation: [employer] How many Children do You have: 2 Feels Safe at Home: Yes Childhood Exposure to Second-Hand Smoke: Yes caffeine: Yes during the past year weight has: remained stable Dental Care, Regularly: No Physical Activity Frequency: Does not Exercise Physical Activity Frequency Comment: on feet at work all day Seatbelt Use: always Sunscreen Use: No Assistive Devices: None Review of Systems Review of Systems: REVIEW OF SYSTEMS: Constitutional: No fever, sweats or chills Eyes: No diplopia, no worsening or blurred vision ENT: (+) trouble swallowing, normal hearing, Respiratory: No cough, sputum, dyspnea at rest or on exertion Cardiovascular: No chest pain, tightness or palpitations Abdomen: No pain, nausea, vomiting, diarrhea or constipation Musculoskeletal: No joint pain, calf pain, swelling Neurologic: (+) weakness, numbness/tingling, or balance problems Psychiatric: No anxiety or depression Skin: No rash or itch Physical Exam Physical Exam: PHYSICAL EXAM: General: awake, alert, no apparent distress Head: Normocephalic, atraumatic ENT: PERRLA, EOMI, no pharyngeal exudate, mucous membranes moist Neuro: AAO x 3, speech is slurred with mild dysarthria and mild-mod expressive aphasia, strength intact bilaterally 5/5 LUE and RLE, Strength 4/5 RUE, sensation intact and equal all extremities and dermatomes, no pronator drift, overshoot with finger to nose on right, discoordinate with heel to mcgowan bilaterally, no visual field deficits but difficult for patient to follow Chest: equal rise and fall of the chest, no accessory muscle use, no heaves or thrills, Clear to auscultation, on room air, Cardiac: Regular rate and rhythm, telemetry reviewed- NSR, skin warm dry, cap refill <3 seconds, peripheral pulses +2 no JVD, no murmur, no edema GI: NABS x 4 quadrants, soft, nontender to palpation, no rebound, guarding or tenderness : Spontaneously voiding, no pain, no CVA tenderness, Extremities: Normal inspection, no peripheral edema or erythema, calfs nontender to palpation Psych: Normal mood and affect Skin: wound to right great metatarsal with dressing and protective boot on. deferred exam at this time, will evaluate when on the floor post brain imaging Results & Data Results & Data ([facility]) Vital Signs (Past 12 Hours) Vital Signs Temp Pulse Pulse Resp BP BP Pulse Ox 05/24/21 13:00 82 16 196/79 H 99 05/24/21 11:30 67 16 152/74 H 95 05/24/21 10:58 83 16 184/75 H 95 05/24/21 10:44 36.8 C 164 H 18 154/69 H 100 Laboratory Results Abnormal lab results 05/24/21 05/24/21 05/24/21 Range/Units 11:02 11:02 11:03 RBC 2.40 L (4.2-5.4) M/uL Hgb 7.4 L (12.0-16.0) g/dL POC Hgb 8.2 L (12.0-16.0) g/dl Hct 22.8 L (37-47) % POC Hct 24 L (37-47) % RDW Std Deviation 50.1 H (36.4-46.3) fL Plt Count 418 H (130-400) K/uL Neut # (Auto) 6.81 H (1.4-6.5) K/uL Lymph # (Auto) 0.98 L (1.2-3.4) K/uL POC Chloride 100 L (101-112) mmol/L Glucose 101 H (70-99) mg/dl POC Glucose (other) 104 H (70-99) mg/dl Diagnostic Findings Chest X-Ray 05/24/21 11:07 XR chest 1V portable HISTORY: 66 years-old Female Stroke Like Symptoms acute strokelike symptoms COMPARISON: Chest radiograph 05/07/2021 TECHNIQUE: Portable AP view of the chest FINDINGS: Cardiomediastinal and hilar silhouettes are within normal limits. No pneumothorax, pleural effusion, airspace consolidation or overt pulmonary edema. The bones of the chest appear grossly intact. IMPRESSION: No acute process. ACT 112: Negative or not required by law. The above report was generated using voice recognition software. It may contain grammatical, syntax or spelling errors. Electronically signed by: Earle Rankin M.D. 05/24/2021 11:[address] 05/24/21 11:07 CT head/brain wo con CLINICAL HISTORY: 66 years-old Female with Stroke Like Symptoms. Acutely altered mental status with strokelike symptoms TECHNIQUE: Multiple axial CT images of the head were obtained without contrast. A dose lowering technique was utilized adhering to the principles of ALARA. CT DOSE: 863.65 mGy.cm COMPARISON: Head CT 05/09/2021, brain MRI 05/07/2021. FINDINGS: No acute intracranial hemorrhage, midline shift, intracranial mass, hydrocephalus, territorial ischemia or abnormal extra-axial collection. Subacute infarct within the left lateral nucleus/internal capsule redemonstrated. 1.5 cm area of ill-defined low-attenuation involving the left frontal lobe centrum semiovale on image 17 is new/progressed from comparison. The calvarium is intact. The paranasal sinuses, mastoid air cells, and middle ear cavities are clear. IMPRESSION: 1. 1.5 cm area of ill-defined low-attenuation involving the left frontal lobe centrum semiovale is new from the 05/09/[address] and is within an area of acute infarct described on the brain MRI from 05/07/2021, likely representing progressive cytotoxic edema. 2. 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 3. No acute territorial infarct or intracranial hemorrhage. ACT 112: Negative or not required by law. The above report was generated using voice recognition software. It may contain grammatical, syntax or spelling errors. Electronically signed by: Earle Rankin M.D. 05/24/2021 11:29 AM Head CTA 05/24/21 11:07 CT angio head w con, CT angio neck with con CLINICAL HISTORY: 66 years-old Female with Stroke Like Symptoms. Acute strokelike symptoms. Prior right carotid endarterectomy. COMPARISON STUDY: Head CT of same day, CTA head and neck 05/07/2021, brain MRI 05/07/2021 TECHNIQUE: Following the IV administration of 120 cc of Optiray, CT angiogram of the head and neck was performed from the aortic arch to the skull apex. Images are reviewed in the axial, sagittal, and coronal planes. 3-D MIPS images are created and assessed. IV contrast was administered without complication. All measurements were obtained according to NASCET criteria. A dose lowering techniq ue was utilized adhering to the principles of ALARA. FINDINGS: Atherosclerosis of the thoracic aortic arch. Patency of the innominate and imaged subclavian arteries. 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 Severe mixed plaque of the left carotid bulb and proximal left ICA. Reconstitution of flow within the proximal cervical segment left ICA with trickle flow appears similar to comparison. The right common carotid artery is patent. There is mild luminal narrowing and irregularity of the distal right common carotid artery which is unchanged. Postoperative changes of prior right carotid endarterectomy with high-grade stenosis involving the proximal aspect of the right external carotid artery, unchanged. There is luminal irregularity without high-grade stenosis involving the proximal mid cervical segments of the right ICA. Mild multifocal luminal narrowing of the middle cerebral arteries. The middle and anterior cerebral arteries appear patent. Codominant and patent vertebral arteries. Mixed plaque at the origin of the vertebral arteries results in at least moderate luminal narrowing bilaterally. The basilar and posterior cerebral arteries are patent. The cerebral venous sinuses are patent. There is no abnormal intracranial enhancement. Subacute infarcts of the left vertebral convexity are better seen on the head CT of same day. IMPRESSION: 1. 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 2. Postoperative changes of prior right carotid endarterectomy. Luminal irregularity with mild narrowing involving the proximal and mid cervical segments of the right ICA is also unchanged. 3. High-grade stenosis of the proximal right external carotid artery is unchanged. ACT 112: Negative or not required by law. The above report was generated using voice recognition software. It may contain grammatical, syntax or spelling errors. Electronically signed by: Earle Rankin M.D. 05/24/2021 11:40 AM Neck CTA 05/24/21 11:07 CT angio head w con, CT angio neck with con CLINICAL HISTORY: 66 years-old Female with Stroke Like Symptoms. Acute strokelike symptoms. Prior right carotid endarterectomy. COMPARISON STUDY: Head CT of same day, CTA head and neck 05/07/2021, brain MRI 05/07/2021 TECHNIQUE: Following the IV administration of 120 cc of Optiray, CT angiogram of the head and neck was performed from the aortic arch to the skull apex. Images are reviewed in the axial, sagittal, and coronal planes. 3-D MIPS images are created and assessed. IV contrast was administered without complication. All measurements were obtained according to NASCET criteria. A dose lowering technique was utilized adhering to the principles of ALARA. FINDINGS: Atherosclerosis of the thoracic aortic arch. Patency of the innominate and imaged subclavian arteries. 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 Severe mixed plaque of the left carotid bulb and proximal left ICA. Reconstitution of flow within the proximal cervical segment left ICA with trickle flow appears similar to comparison. The right common carotid artery is patent. There is mild luminal narrowing and irregularity of the distal right common carotid artery which is unchanged. Postoperative changes of prior right carotid endarterectomy with high-grade stenosis involving the proximal aspect of the right external carotid artery, unchanged. There is luminal irregularity without high-grade stenosis involving the proximal mid cervical segments of the right ICA. Mild multifocal luminal narrowing of the middle cerebral arteries. The middle and anterior cerebral arteries appear patent. Codominant and patent vertebral arteries. Mixed plaque at the origin of the vertebral arteries results in at least moderate luminal narrowing bilaterally. The basilar and posterior cerebral arteries are patent. The cerebral venous sinuses are patent. There is no abnormal intracranial enhancement. Subacute infarcts of the left vertebral convexity are better seen on the head CT of same day. IMPRESSION: 1. 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 2. Postoperative changes of prior right carotid endarterectomy. Luminal irregularity with mild narrowing involving the proximal and mid cervical segments of the right ICA is also unchanged. 3. High-grade stenosis of the proximal right external carotid artery is unchanged. ACT 112: Negative or not required by law. The above report was generated using voice recognition software. It may contain grammatical, syntax or spelling errors. Electronically signed by: Earle Rankin M.D. 05/24/2021 11:40 AM MRI OF THE BRAIN WITHOUT CONTRAST CLINICAL HISTORY: NEW stroke with total occlusion of LICA FINDINGS: Note is made of a 1 cm focus of restricted diffusion within the left centrum semiovale ovale on axial diffusion-weighted sequence image 15 of 23. This is hyperintense on the diffusion-weighted sequence and markedly hypointense on the ADC map. This represents an acute infarct which has developed since prior examination. Multiple additional subacute infarcts within the left basal ganglia and centrum semiovale ovale were present on prior examination. Associated T1 hyperintensity is again noted. There is no evidence for acute hemorrhage. There is no mass effect. There may be an additional punctate acute infarct within the left temporal lobe on axial image 10. No intracranial masses identified on this unenhanced exam. Abnormality of the flow from the intracranial portion of the left internal carotid artery is better depicted on CT performed earlier today. IMPRESSION: 1. Interval development of a 1 cm focus of restricted diffusion within the left centrum semiovale since MRI of May 07, 2021. This represents an acute infarct. Suspected additional punctate infarct within the left temporal lobe. 2. Redemonstration of subacute infarcts within left basal ganglia and centrum semiovale ovale with inherent T1 hyperintensity which were shown on prior exam. This T1 hyperintensity may reflect laminar necrosis or petechial hemorrhage, slightly decreased. 3. No acute intracranial hemorrhage. No mass effect. Medications Administered Discontinued Medications Sodium Chloride (Nss) 500 mls @ 999 mls/hr IV .Q31M ONE Stop: 05/24/21 11:38 Last Infusion: 05/24/21 13:15 Dose: 0 mls/hr Documented by: [id number] Admin: 05/24/21 12:06 Dose: 999 mls/hr Documented by: [id number] Ioversol (Optiray 320 125ml) 120 ml IV ONCE ONE Stop: 05/24/21 11:13 Last Admin: 05/24/21 11:12 Dose: 120 ml Documented by: [id number] ECG Additional Comments: Normal sinus rhythm Normal ECG When compared with ECG of 07-MAY-2021 19:40, No significant change was found Code Status & VTE Plan Code Status CODE: FULL VTE: SCD's, chemoprophylaxis following MRI evaluation Supervising Physician Co-Signing Physician Notes I supervised LAKSHMI Lim on this admission. I interviewed and examined the patient independently of him. The plan is as written in his note except for any following changes/exceptions: None Very unfortunate 66yo F w/ multiple CVAs and occluded left carotid artery. Presents with another stroke, likely occurring yesterday or in the last few d ays. 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 CTA shows occluded left ICA with low flow reconstituted. No present vascular surgery. [facility] neurointerventionalist recommended transfer to their ICU to review images and consider revascularization. - Discharged prior to getting floor bed to [facility]. Images pushed and also sent with the patient in paper chart. kept informed of events by Jacob Telles and will see his at [place]. PG Care Time/CCT Total # of Minutes Spent Total Time Spent with Patient: Total time spent is greater than 50% in coordination of care (as documented) at patient's floor/unit and/or counseling patient: Coding Level of Care Code None Medical Decision Making High Complexity Diagnoses Acute CVA (cerebrovascular accident) I63.9 Hypertension I10 CVA (cerebral vascular accident) I63.9 Chronic pain G89.29 Right foot ulcer L97.519 Non-pressure ulcer stage: unspecified non-pressure ulcer stage PAD (peripheral artery disease) I73.9 Carotid artery disease I65.23 Carotid artery disease type: stenosis Laterality: bilateral Tobacco abuse Z72.0 CPT Codes Office/Outpatient Visit, Est, Lvl 4 - [id number] ([id number]) Time Spent (min) 120 Comment coordinating, communicating with tertiary care center, disposition to higher level of care (1) Carotid artery disease Carotid artery disease type: stenosis Laterality: bilateral Qualified Code(s): I65.23 - Occlusion and stenosis of bilateral carotid arteries (2) Right foot ulcer Non-pressure ulcer stage: unspecified non-pressure ulcer stage Qualified Code(s): L97.519 - Non-pressure chronic ulcer of other part of right foot with unspecified severity
--- NOTE | 2021-05-24 16:03 | Magnetic Resonance Report ---
MRI OF THE BRAIN WITHOUT CONTRAST CLINICAL HISTORY: NEW stroke with total occlusion of LICA COMPARISON STUDY: MRI of the brain May 07, 2021. Head CT and CTA of the head performed earlier today . TECHNIQUE: Utilizing a 1.5 Samantha magnet and dedicated coil, multiplanar, multiecho imaging of the bra in was performed without IV contrast. FINDINGS: Note is made of a 1 cm focus of restricted diffusion within the left centrum semiovale oval e on axial diffusion-weighted sequence image 15 of 23. This is hyperintense on the diffusion-weighted sequence and markedly hypointense on the ADC map. This represents an acute infarct which has develop ed since prior examination. Multiple additional subacute infarcts within the left basal ganglia and c entrum semiovale ovale were present on prior examination. Associated T1 hyperintensity is again noted . There is no evidence for acute hemorrhage. There is no mass effect. There may be an additional punc vivar acute infarct within the left temporal lobe on axial image 10. No intracranial masses identified on this unenhanced exam. Abnormality of the flow from the intracranial portion of the left internal carotid artery is better depicted on CT performed earlier today. IMPRESSION: 1. Interval development of a 1 cm focus of restricted diffusion within the left centrum semiovale sin ce MRI of May 07, 2021. This represents an acute infarct. Suspected additional punctate infarct with in the left temporal lobe. 2. Redemonstration of subacute infarcts within left basal ganglia and centrum semiovale ovale with in herent T1 hyperintensity which were shown on prior exam. This T1 hyperintensity may reflect laminar n ecrosis or petechial hemorrhage, slightly decreased. 3. No acute intracranial hemorrhage. No mass effect. ACT 112: Negative or not required by law. Electronically signed by: Km Carey M.D. 05/24/2021 4:02 PM
--- NOTE | 2021-05-24 19:26 | Electrocardiogram Report ---
Test Reason : Blood Pressure : / mmHG Vent. Rate : 085 BPM Atrial Rate : 085 BPM P-R Int : 154 ms QRS Dur : 100 ms QT Int : 374 ms P-R-T Axes : 070 078 085 degrees QTc Int : 445 ms Poor data quality, interpretation may be adversely affected Normal sinus rhythm Minor Non-specific intra-ventricular conduction delay Normal ECG When compared with ECG of 07-MAY-2021 19:40, No significant change was found Confirmed by Gregor Brand ([id number]) on 05/24/2021 7:26:19 PM Referred By: REFERRED SELF Confirmed By:Gregor Brand
--- NOTE | 2021-05-24 23:30 | Discharge Summary ---
Date of Service May 24, 2021 Admission HPI Per Admitting Provider 65 YOF with past medical history of: CVA, GERD, HTN, HLD, COPD, smoker, PAD, chronic wound of right foot. Patient had a left basal ganglia lacunar stroke on 05 May, following a right CEA for carotid artery stenosis, she was started on ASA and Plavix. On May 07 the patient returned to the [facility] shortly after discharge with worsening right sided facial droop and right sided weakness, her imaging at that time revealed a total occlusion of her left ICA with trickle flow (that was previously noted as 60%), and a subacute infarct within left centrum semiovale of the left frontal lobe and extension into caudate and l entiform with laminar necrosis and petechiae hemorrhage she had a short dose of Aggrenox therapy and was evaluated by vascular surgery and neurology. She was felt to not be a surgical candidate secondary to total occlusion of the Left ICA and from a nurological standpoint, her symptoms were improving and was placed back to ASA and Plavix therapy as well as maintaining SBP goals 140-160. As above her symptoms started yesterday around 1600 per the patient, which she noticed difficulty swallowing, forming sentences and speaking as well as worsening of her right sided weakness. Today her CT of the head reveals a 1.5 cm area of ill-defined low-attenuation involving the left frontal lobe centrum semiovale is new from the 05/09/[address] and is within an area of acute infarct described on the brain MRI from 05/07/2021, likely representing progressive cytotoxic edema. With her CTA of the head and neck not showing any acute changes. The patient NIHSS at this time is 5, with dysarthria and mild expressive aphasia noted. Due to the fact that patient continues to have these episodes of right sided involvement in the setting of left ICA occlusion, will reach out to [facility] for interventional neurology/neurology evaluation for possible intervention. Recommendation at this time is to obtain MRI of the brain and re- convene with the findings from the MRI. Patient will be admitted and continued on stroke protocol to include permissive HTN, CUSTOMER TRAINING SPECIALIST, PT/OT, and have reviewed the case with Dr. Tam. Continue ASA and Plavix for now pending the MRI. Patient also has a chronic right foot ulceration of her right great metatarsal. Normally cleansed with saline and layer of Santyl to 2x2 and apply to the wound and secure with OPTIfoam daily and is on Bactrim for this. Admission Exam Per Admitting Provider Slurred speech Facial droop Right arm weakness Principal Diagnosis CVA Discharge Exam Slurred speech Facial droop Right arm weakness Discharge Data Allergies Allergy/AdvReac Type Severity Reaction Status Date / Time No Known Allergies Allergy Mild Verified 05/24/21 12:16 Consultations 05/24/21 12:15 ED Decision to Admit Stat Ordered Studies 05/24/21 11:07 CT angio head w con Stat CT angio neck with con Stat CT head/brain wo con Stat 05/24/21 14:10 MR brain wo con Stat Hospital Course (1) Acute CVA (cerebrovascular accident): 1.5 cm area of ill-defined low-attenuation involving the left frontal lobe centrum semiovale is new from the 05/09/[address] and is within an area of acute infarct described on the brain MRI from 05/07/2021, likely representing progressive cytotoxic edema. Subacute infarct of the left basal ganglia remonstrated. - Acute on chronic CVA- Left ICA occlusion - MRI of the brain completed - Follow up with [facility] for evaluation for possible intervention based treatment- Reveiwed imaging with [facility] following completiion of MRI at 1600- Patient has been accepted to [facility] to ICU via Dr. Joseph - ASA and Plavix continue for now- pending MRI - Permissive HTN - Continue statin - CUSTOMER TRAINING SPECIALIST for dysphagia screening- ASA rectally if unable to take PO - Transferred to [facility] for further interventional investigation. No change in patient status while in the ER. (2) Hypertension: Hold home antihypertensives as above - Continue Carvedilol (3) CVA (cerebral vascular accident): [id number] CVA subacute infarct within the left centrum semiovale of the left frontal lobe with extension into the caudate and lentiform nuclei with associated laminar necrosis and petechial hemorrhage. [id number]- acute left basal ganglia lacunar stroke - ASA and Plavix - As above- evaluate for intervention for this relatively young female with reoccurring cerebral emboli (4) Chronic pain: Continue tylenol and percocet (5) Right foot ulcer: See wound care recommendations from the 12July - Continue wound care orders (6) PAD (peripheral artery disease): As above- (7) Carotid artery disease: S/P Rt. CEA with CVA and brief introperative arrest - LT ICA- Complete occlusion of the left common carotid artery with reconstitut ion of trickle flow within the left ICA, unchanged from 05/07/2021. - deemed non-surgical candidate via vascular surgery secondary to complete occlusion (8) Tobacco abuse: Patient continues to smoke- 1 pack per day - does not want nicotine patch - smoking cessation needed - This is gravely increasing her morbidity Total Time Total Time Spent Total Time Spent (In Minutes): 60 Discharge Plan Discharge Items Patient Disposition: Transfer Acute Care Hospital Reason For Visit: CVA Discharge Diagnosis: CVA Activity: Resume your previous activity Non-emergency contact: Primary Care Provider Call non-emergency contact if: your symptoms worsen Follow-up/Referrals: Go Landeros CRNP [Primary Care Provider] - Diet: Regular Addtl Attending Provider Instructions: Pending Studies at Discharge: No Stand-Alone Forms: My [facility] Skilled Items Patient informed of condition?: No DNR: No Discharge Level of Care: Other Communicable Disease: No Discharge Prognosis: Stable Lines: Peripheral IV Urinary Catheter: Yes Medications and DC Order Prescriptions: Continued pantoprazole [Protonix] 40 mg tablet,delayed release (DR/EC) 40 mg PO BID Qty: 60 RF: 2 aspirin 81 mg Tablet,Delayed Release (Dr/Ec) 81 mg PO QAM Qty: 90 RF: 1 clopidogrel 75 mg Tablet 75 mg PO QAM Qty: 30 RF: 3 nvicyybibypy-pkkiweee-tzsnef Tablet 1 tab PO QAM RF: 0 Santyl 250 unit/gram ointment 1 applic topical QAM RF: 0 amlodipine [Norvasc] 5 mg Tablet 2.5 mg PO BID Qty: 60 RF: 3 carvedilol 3.125 mg tablet 3.125 mg PO BID Qty: 60 RF: 2 hydralazine 25 mg tablet 25 mg PO TID RF: 0 sulfamethoxazole-trimethoprim [Bactrim DS] 800-160 mg tablet 1 tab PO BID RF: 0 lisinopril [Zestril] 40 mg tablet 40 mg PO QAM RF: 0 atorvastatin 40 mg tablet 40 mg PO QAM RF: 0 thiamine HCl (vitamin B1) [Vitamin B-1] 100 mg Tablet 100 mg PO QAM 30 Days Qty: 30 RF: 0 oxycodone-acetaminophen [Percocet] 5-325 mg Tablet 1 tab PO Q4H PRN (Reason: pain) Qty: 20 RF: 0 Discharge Orders: Discharge Order (Routine); Ordered 05/24/21 Ordered By: Diogo So Admission Data Admit Date/Time: 05/24/21 14:37 Attending Provider: Diogo So Admit Provider: Diogo So Primary Care Provider: Go Landeros Other Providers: Diogo So Coding Level of Care Code OBSERV/HOSP SAME DATE LVL 3 Diagnoses Acute CVA (cerebrovascular accident) I63.9 Hypertension I10 CVA (cerebral vascular accident) I63.9 Chronic pain G89.29 Right foot ulcer L97.519 Non-pressure ulcer stage: unspecified non-pressure ulcer stage PAD (peripheral artery disease) I73.9 Carotid artery disease I65.23 Carotid artery disease type: stenosis Laterality: bilateral Tobacco abuse Z72.0
[2021-05-25] MEDS ORDERED: SODIUM CHLORIDE 0.9% 250 ML IV PRN (11:12)
== END 2021-05-24 23:59 | disposition short-term general hospital (02) | DRG 65 ==
LOC: ED 10:41 → SUATTDRO 14:37 → EDINP 14:37 → UNDODISIN 05-25 19:54

== ENCOUNTER 2021-11-08 13:16 | Inpatient (IN) ==
[2021-11-08] MEDS ORDERED: VANCOMYCIN CONSULT ACTIVE PRN ×2 (14:10→15:00)
[2021-11-08] MEDS ORDERED: cefTRIAXone SODIUM 2,000 MG/70 ML BAG IV STA (14:10)
[2021-11-08] MEDS ORDERED: VANCOMYCIN HCL 1,500 MG in SODIUM CHLORIDE 0.9% 500 ML IV STA (14:10)
--- NOTE | 2021-11-08 14:20 | Emergency Department Note ---
History of Present Illness General Chief complaint: Foot Injury/Pain Stated complaint: RT FOOT PAIN Time Seen by Provider: 11/08/21 14:04 History of Present Illness Maximum Pain Intensity: 8 66-year-old female presents emergency department stating right foot pain for the past week. Patient states that she noticed her foot changed from red to black over the past few days. She is a smoker has a history of revascularization x2 in the right lower extremity and has had a prior evaluation and has been on antibiotics for osteomyelitis. Patient denies any other complaints. There are no other mitigating or alleviating factors Home Medications Medication Instructions Recorded Confirmed Type aspirin 81 mg tablet,delayed 81 mg PO QAM #90 tab 06/22/21 11/08/21 Rx release carvedilol 12.5 mg tablet (Coreg) 12.5 mg PO BID 07/20/21 11/08/21 History thiamine HCl (vitamin B1) 100 mg 100 mg PO QAM 07/20/21 11/08/21 History tablet losartan 50 mg tablet 50 mg PO QAM 09/08/21 11/08/21 History umeclidinium 62.5 mcg-vilanterol 1 inh INHALATION DAILY PRN 09/08/21 11/08/21 History 25 mcg/actuation powdr for inhalation (Anoro Ellipta) ferrous sulfate 325 mg (65 mg 325 mg PO TID #90 tab 09/13/21 11/08/21 Rx iron) tablet pantoprazole 40 mg tablet,delayed 40 mg PO BID #60 tab 09/13/21 11/08/21 Rx release (Protonix) clopidogrel 75 mg tablet 75 mg PO QAM #30 tab 10/14/21 11/08/21 Rx rosuvastatin 20 mg tablet (Crestor) 20 mg PO QAM #30 tab 10/14/21 11/08/21 Rx tramadol 50 mg tablet 50 mg PO Q6H PRN #60 tab 10/27/21 11/08/21 Rx acetaminophen 325 mg tablet 650 mg PO Q4H PRN 11/08/21 11/08/21 History Allergies Allergy/AdvReac Type Severity Reaction Status Date / Time No Known Allergies Allergy Mild Verified 11/08/21 15:21 Past Med/Surg History Medical History Acute CVA (cerebrovascular accident) (~04/2021) Carotid artery disease GERD (gastroesophageal reflux disease) UNDER CONTROL History of CVA (cerebrovascular accident) (04/2021) Hypertension Ischemic ulcer of right foot Follows with [facility]ound [facility] Left renal mass Left side- per 04/15/21 MRI= 1.6 x 1.0 cm or slightly exophytic focus within the lateral aspect of the left kidney.- worrisome for RCC per records- pt will follow up as outpatient. pt unaware PAD (peripheral artery disease) S/p stent to right LE February 2021 with [facility] Bilateral iliac artery stenosis Rectal mass pt unaware. Tobacco abuse Vasculopathy Surgical History H/O carotid endarterectomy 30-40 sec chest compressions required during surgery for asystole - possible prior much shorter vagal episode in past as well H/O exploratory laparotomy (01/22/21) Exploratory laparotomy, oversew perforated duodenal ulcer, abdominal washout. Dr. Craig 01/22/2021 H/O tubal ligation H/O vascular surgery 2 stents to right leg [facility] February 2021 History of esophagogastroduodenoscopy (EGD) (08/2021) gastritis w/ hemorrhage History of right-sided carotid endarterectomy (05/04/21) S/P angioplasty (02/2021) distal SFA and PROJECTOR OPERATOR, RLE S/P peripheral artery angioplasty with stent placement (01/2021) RLE, iliac stent / SFA angioplasty [facility] teeth extracted Family History Mother , age 70 of lung cancer Diabetes Lung cancer Hypertension Father , age 52 of complications of vascular surgery. Lung cancer PAD (peripheral artery disease) Denies family history of Ovarian cancer Prostate cancer Myocardial infarction Breast cancer Colorectal cancer Social History Smoking Status: Current every day smoker Tobacco Type: Cigarettes Age Started Using Tobacco: 27; packs per day: 1; Cigarettes Per Day: 20 per day; Second Hand Exposure: Yes; Hx Alcohol Use: Yes Alcohol type: beer Alcohol Intake Frequency: 4 or More x per/Week Alcohol Intake Frequency Comment: 2-3 beers daily or more Hx Substance Use: No Preferred Language: Nauruan Communication Ability: Effective Visual Impairment: Limited Hearing Ability: Normal Program/Music Director Required: No Beliefs That Will Affect Care: None marital status: Current Living Situation: Spouse current occupational status: employed current occupation: [employer] How many Children do You have: 2 Feels Safe at Home: Yes Childhood Exposure to Second-Hand Smoke: Yes caffeine: Yes during the past year weight has: remained stable Dental Care, Regularly: No Physical Activity Frequency: Does not Exercise Physical Activity Frequency Comment: on feet at work all day Seatbelt Use: always Sunscreen Use: No Assistive Devices: Denture - Upper, Glasses and Special Shoe Review of Systems A total of 10 systems reviewed and were otherwise negative Cardiovascular: no chest pain Integumentary: + rash, + lesions and + non-healing lesions Physical Exam Vital Signs Vital Signs - 24 hr 11/08/21 13:22 11/08/21 15:38 Temperature 36.8 C 36.6 C Temperature Source Temporal Artery Scan Oral Pulse Rate 108 H Pulse Rate [Right Finger] 96 H Pulse Rhythm Regular Pulse Strength Normal Respiratory Rate 20 18 Respiratory Effort / Characteristics Non-Labored Spontaneous Spontaneous Respiratory Depth Normal Respiratory Pattern Regular Blood Pressure 124/57 L Blood Pressure [Left Arm] 136/58 L Blood Pressure Mean 79 Blood Pressure Mean [Left Arm] 84 Blood Pressure Position Sitting Blood Pressure Position [Left Arm] Lying Pulse Oximetry 97 95 Oxygen Delivery Method Room Air Room Air Sepsis Recent Fever Within 48 Hours No Sepsis New/Unexplained Change in Mental Status N/A Sepsis Action Taken by Nursing No Action Required VITAL SIGNS - Vital signs and nursing notes were reviewed. GENERAL -66-year-old female appearing her stated age who is in no acute distress. Communicates well with provider and answers questions appropriately. SKIN - Without rashes. HEAD - NC/AT. EYES - PERRL with EOMI bilaterally. Sclera anicteric. Palpebral conjunctiva pink and moist with no injection noted. EARS - No deformities of external structures noted on gross examination bilaterally. No pain elicited with palpation of the tragus bilaterally. External auditory canals without discharge or otorrhea. Tympanic membranes pearly coates without retraction or bulging. No fluid or purulent material visualized behind the TM. Handle of malleus, umbo, cone of light, pars tensa/flaccid all easily visualized. NOSE - Midline and without cyanosis. No epistaxis or purulent drainage noted. Septum midline without deviation or septal hematoma noted. MOUTH/OROPHARYNX - Without perioral cyanosis. Buccal mucosa pink and moist and without leukoplakia. Tongue midline with equal elevation of palate bilaterally. No tonsillar hypertrophy, erythema, or exudates noted. [] dentition noted. NECK - Neck with FROM. Supple to palpation. No lymphadenopathy noted. No nuchal rigidity. LUNGS -rhonchi bilaterally CARDIAC - RRR with S1/S2. No murmur, rubs, or gallops appreciated. ABDOMEN - Abdominal soft EXTREMITIES -right lower extremity at the foot patient has dry gangrene of the great toe second toe and third toe and an area of erythema in the mid dorsal region of the foot the leg is warm above the ankle. The left lower extremity has an area of erythema of the foot dorsum NEUROLOGIC - Cranial nerves II through XII grossly intact. Sensory intact to light touch throughout. Patellar reflexes +2/4. PSYCH - A&Ox3 and cooperates fully with examiner. Pt is very pleasant and interacts well with examiner. Course Reevaluation(s) Reevaluation #1: Patient was started on IV antibiotics, patient was given oral pain medicine, the case was discussed with the hospitalist for admission. Case was also discussed with the vascular surgeon physician commissary assistant at 1600 hrs. who states to also add a ultrasound arterial of the right lower extremity and they will see the patient as well. Pt will be admitted to the MD hospitalist service Administered Medications Vancomycin HCl 1,000 mg/ (Sodium Chloride) 270 mls @ 200 mls/hr IV NOW ONE Stop: 11/08/21 16:20 Last Admin: 11/08/21 15:36 Dose: 200 mls/hr Documented by: [id number] Discontinued Medications Ceftriaxone Sodium (Rocephin) 2,000 mg in 70 mls @ 140 mls/hr IV NOW STA Stop: 11/08/21 14:39 Last Admin: 11/08/21 15:14 Dose: Not Given Documented by: [id number] Piperacillin Sod/Tazobactam Sod (Zosyn) 4.5 gm in 120 mls @ 240 mls/hr IV NOW ONE Stop: 11/08/21 14:59 Last Infusion: 11/08/21 15:25 Dose: 0 mls/hr Documented by: [id number] Admin: 11/08/21 14:45 Dose: 240 mls/hr Documented by: [id number] Oxycodone/Acetaminophen (Oxycodone/Acetaminophen 5mg/325mg Tab) 1 tab PO NOW STA Stop: 11/08/21 15:37 Last Admin: 11/08/21 15:44 Dose: 1 tab Documented by: [id number] Medical Decision Making Medical Records Attestation: I reviewed the patient's medical records. Laboratory Data Attestation: I reviewed the patient's lab results. Result diagrams: 11/08/21 14:40 11/08/21 14:40 Lab Results 11/08/21 11/08/21 11/08/21 Range/Units 14:40 14:40 14:40 WBC 8.79 (4.8-10.8) K/uL RBC 3.41 L (4.2-5.4) M/uL Hgb 9.6 L (12.0-16.0) g/dL Hct 30.6 L (37-47) % MCV 89.7 (80-100) fL MCH 28.2 (25-34) pg MCHC 31.4 L (32-36) g/dL RDW Std Deviation 51.8 H (36.4-46.3) fL RDW Coeff of Odette 15.7 H (11.5-14.5) % Plt Count 460 H (130-400) K/uL MPV 8.4 (7.4-10.4) fL Immature Gran % (Auto) 0.1 % Neut % (Auto) 79.1 % Lymph % (Auto) 9.7 % Traill % (Auto) 9.2 % Eos % (Auto) 1.3 % Baso % (Auto) 0.6 % Neut # (Auto) 6.96 H (1.4-6.5) K/uL Lymph # (Auto) 0.85 L (1.2-3.4) K/uL Traill # (Auto) 0.81 H (0.11-0.59) K/uL Eos # (Auto) 0.11 (0-0.5) K/uL Baso # (Auto) 0.05 (0-0.2) K/uL Immature Gran # (Auto) 0.01 (0.00-0.02) K/uL PT 9.8 (9.0-12.0) Seconds INR 1.0 (0.9-1.1) Sodium 132 L (136-145) mmol/L Potassium 4.1 (3.5-5.1) mmol/L Chloride 99 (98-107) mmol/L Carbon Dioxide 26 (21-32) mmol/L Anion Gap 7 (3-11) BUN 15 (6-23) mg/dl Creatinine 0.59 L (0.6-1.2) mg/dl Est Cr Clr Drug Dosing 69.2 ml/min Est GFR ( Amer) 112.3 ml/min Est GFR (Non-Af Amer) 96.9 ml/min BUN/Creatinine Ratio 25.4 H (10-20) Glucose 132 H (70-99) mg/dl Calcium 9.1 (8.5-10.1) mg/dl Total Bilirubin 0.2 (0.2-1.0) mg/dl AST 22 (13-39) U/L ALT 17 (7-52) U/L Alkaline Phosphatase 113 H (34-104) U/L Total Protein 7.4 (6.0-8.3) gm/dl Albumin 3.6 (3.4-5.0) gm/dl Globulin 3.8 (2.5-4.0) gm/dl Albumin/Globulin Ratio 0.9 (0.9-2) Imaging Data Radiologist's Impression: Foot X-Ray 11/08/21 14:12 XR foot RT min 3V routine CLINICAL HISTORY: pain infection TECHNIQUE: 3 views of the right foot were obtained. Comparison: Comparison is made to right foot radiographs 03/07/2021 FINDINGS: No evidence of bony erosion is seen. The alignment is anatomic. Bones are demineralized. Mild degenerative changes are seen throughout the foot. No soft tissue abnormality is identified. IMPRESSION: No radiographic evidence of osteomyelitis. If clinical concern remains, MRI is a more sensitive modality. ACT 112: Negative or not required by law. Electronically signed by: Ezra Queen M.D. 11/08/2021 3:[address] [facility] Narrative Medical decision making differential diagnosis includes cellulitis osteomyelitis dry gangrene vascular issue, patient will be started on IV antibiotics and will be admitted Impression & Plan Gangrene of toe of right foot, PAD (peripheral artery disease), Foot pain, right Discharge Plan Visit Data Chief Complaint: Foot Injury/Pain Stated Complaint: RT FOOT PAIN ED Provider: Jass Sauer Discharge Problem: Gangrene of toe of right foot, PAD (peripheral artery disease), Foot pain, right Patient Disposition: Being Evaluated by Hospitalist Forms Stand Alone Forms: My [facility] Prescriptions Prescriptions: No Action ferrous sulfate 325 mg (65 mg iron) tablet 325 mg PO TID Qty: 90 RF: 5 pantoprazole [Protonix] 40 mg tablet,delayed release (DR/EC) 40 mg PO BID Qty: 60 RF: 5 clopidogrel 75 mg tablet 75 mg PO QAM Qty: 30 RF: 3 rosuvastatin [Crestor] 20 mg tablet 20 mg PO QAM Qty: 30 RF: 3 tramadol 50 mg tablet 50 mg PO Q6H PRN (Reason: pain) Qty: 60 RF: 0 aspirin 81 mg tablet,delayed release (DR/EC) 81 mg PO QAM Qty: 90 RF: 1 carvedilol [Coreg] 12.5 mg tablet 12.5 mg PO BID RF: 0 thiamine HCl (vitamin B1) 100 mg tablet 100 mg PO QAM RF: 0 losartan 50 mg tablet 50 mg PO QAM RF: 0 Anoro Ellipta 62.5-25 mcg/actuation blister with device 1 inh inhalation DAILY PRN (Reason: Shortness Of Breath Or Wheezing) RF: 0 acetaminophen 325 mg tablet 650 mg PO Q4H PRN (Reason: Pain) RF: 0 Referrals Referrals: Go Landeros CRNP [Primary Care Provider] -
[2021-11-08] MEDS ORDERED: PATIENT'S HEIGHT AND/OR WEIGHT NEEDED SCH (14:30)
[2021-11-08] MEDS ORDERED: PIPERACILLIN/TAZOBACTAM 4.5 GM/120 ML BAG IV ONE (14:30)
[2021-11-08 14:51] LABS: Basophils # (auto) 0.05 K/uL (0-0.2); Basophils % (auto) 0.6 %; Eosinophils # (auto) 0.11 K/uL (0-0.5); Eosinophils % (auto) 1.3 %; Hematocrit (blood only) 30.6 % (37-47); Hemoglobin 9.6 g/dL (12.0-16.0); Immature Granulocytes # (auto) 0.01 K/uL (0.00-0.02); Immature Granulocytes % (auto) 0.1 %; Lymphocytes # (auto) 0.85 K/uL (1.2-3.4); Lymphocytes % (auto) 9.7 %; Mean Corpuscular Hemoglobin 28.2 pg (25-34); Mean Corpuscular Hgb Conc 31.4 g/dL (32-36); Mean Corpuscular Volume 89.7 fL (80-100); Mean Platelet Volume 8.4 fL (7.4-10.4); Monocytes # (auto) 0.81 K/uL (0.11-0.59); Monocytes % (auto) 9.2 %; Neutrophils # (auto) 6.96 K/uL (1.4-6.5); Neutrophils % (auto) 79.1 %; Platelet Count 460 K/uL (130-400); RDW Coefficient of Variation 15.7 % (11.5-14.5); RDW Standard Deviation 51.8 fL (36.4-46.3); Red Blood Count 3.41 M/uL (4.2-5.4); White Blood Count 8.79 K/uL (4.8-10.8)
[2021-11-08] MEDS ORDERED: VANCOMYCIN HCL 1,000 MG in SODIUM CHLORIDE 0.9% 250 ML IV ONE (15:00)
[2021-11-08 15:01] LABS: Prothrombin Time 9.8 Seconds (9.0-12.0)
--- NOTE | 2021-11-08 15:07 | XRay Report ---
XR foot RT min 3V routine CLINICAL HISTORY: pain infection TECHNIQUE: 3 views of the right foot were obtained. Comparison: Comparison is made to right foot radiographs 03/07/2021 FINDINGS: No evidence of bony erosion is seen. The alignment is anatomic. Bones are demineralized. Mild degener ative changes are seen throughout the foot. No soft tissue abnormality is identified. IMPRESSION: No radiographic evidence of osteomyelitis. If clinical concern remains, MRI is a more sensitive modal ity. ACT 112: Negative or not required by law. Electronically signed by: Ezra Queen M.D. 11/08/2021 3:06 PM
[2021-11-08 15:16] LABS: Albumin Globulin Ratio 0.9 (0.9-2); Albumin Level 3.6 gm/dl (3.4-5.0); BUN Creatinine Ratio 25.4 (10-20); Bilirubin,Total 0.2 mg/dl (0.2-1.0); Calcium 9.1 mg/dl (8.5-10.1); Creatinine Clr Calc Pharmacy 69.2 ml/min; Est GFR (African American) 112.3 ml/min; Est GFR (Non-African American) 96.9 ml/min; Globulin 3.8 gm/dl (2.5-4.0); Potassium 4.1 mmol/L (3.5-5.1); Total Protein 7.4 gm/dl (6.0-8.3)
[2021-11-08] MEDS ORDERED: oxyCODONE/ACETAMINOPHEN 10-325 TAB PO STA (15:17)
[2021-11-08] MEDS ORDERED: oxyCODONE/ACETAMINOPHEN 5mg/325mg TAB PO STA (15:36)
--- NOTE | 2021-11-08 16:13 | History & Physical Report ---
Date of Service November 08, 2021 Assessment & Plan (1) Gangrene of toe of right foot: Plan: Dry gangrene of the likely secondary to ischemia and continued smoking - Continue with Zosyn - Arterial Duplex study- pending on admission - August 18 [place]- Right TBI = 0.31 LT TBI 0.30 - Vascular surgery consulted by EMD appreciate assistance - NPO after midnight - Plavix on hold for surgical evaluation- resume as early as possible (2) Tobacco abuse: Plan: Continued smoker - no desire to quit - smoking cessation counseling (3) Carotid artery disease: Plan: Bilateral- Left total occlusion - Continue statin, ARB, ASA - Plavix on hold for surgical evaluaiton (4) Hypertension: Plan: Continue ARB (5) History of CVA (cerebrovascular accident): Plan: As above- already on disease modfying medicaitons - not surgical candidate for her LT. CA occlusion - ASA and Plavix as above (6) Chronic pain: Plan: Continue Tramadol Tylenol (7) PAD (peripheral artery disease): Plan: Chronic - ASA/Plavix as above - Vascular surgery evaluation as above History of Present Illness Primary Care Provider: LAKSHMI Garza 66 YOF with past medical history of: CVA, GERD, HTN, HLD, COPD, smoker, PAD, chronic wound of right foot. She comes to the EMD today for complaints of pain to right calf down to right foot and worsening spread of black tissue. Her rig ht foot ulceration that was originally started at her metatarsal and now is involved her right 4 toes back through her medial cuneiform, intermediate cuneiform and into her navicular area. Patient states this has gotten this severe over the past few months. Unsure of how long- however she was following with wound care up until July. Pending arterial duplex study on admission. She was started on Vancomycin and Zosyn IV in the EMD. Patient has extensive arterial disease with right extremity iliac stenting/SFA angioplasty in 02/16, right CEA that was complicated by basal ganglial stroke and intraoperative sinus arres t- occluded LT. CEA with multiple CVA- most recent in May 18 where she was transferred to [facility] for evaluation for neurosurgical intervention. It was determined that she had collateral flow from her LT ECA. For her right lower extremity she does have pulses to her right groin with bruit, popliteal, PT is not palpable woody edema noted up to mid calf with inability to completely straighten her right leg secondary to her pain in foot to calf. She does have sensation dorsal surface over over to between her first and second metatarsal pain to dorsal surface and lateral surface of the foot is retained. The top of her foot she has sensation on her pinky toe and just above her navicular bone. No sensation to her other toes and the are black and hard. Blood cultures were sent. Will admit to Medical floor with continued Zosyn IV, MRSA swab, NPO after midnight- hold her Plavix until surgical determination, will continue her aspirin. Type and screen. Patient is not vaccinated against COVID and her COVID test on admission is: NEGATIVE Revised Cardiac Risk Index for estimated rate of myocardial infarction, PE, Vfib, Cardia arrest or heart block is 6.6% moderate risk with non-cardiac surgery [place] Perioperative Risk Score of Estimated risk/probability for perioperative myocardial infarction or cardiac arrest is 1.21% Allergies Allergy/AdvReac Type Severity Reaction Status Date / Time No Known Allergies Allergy Mild Verified 11/08/21 15:21 Home Medications Medication Instructions Recorded Confirmed Type aspirin 81 mg tablet,delayed 81 mg PO QAM #90 tab 06/22/21 11/08/21 Rx release carvedilol 12.5 mg tablet (Coreg) 12.5 mg PO BID 07/20/21 11/08/21 History thiamine HCl (vitamin B1) 100 mg 100 mg PO QAM 07/20/21 11/08/21 History tablet losartan 50 mg tablet 50 mg PO QAM 09/08/21 11/08/21 History umeclidinium 62.5 mcg-vilanterol 1 inh INHALATION DAILY PRN 09/08/21 11/08/21 History 25 mcg/actuation powdr for inhalation (Anoro Ellipta) ferrous sulfate 325 mg (65 mg 325 mg PO TID #90 tab 09/13/21 11/08/21 Rx iron) tablet pantoprazole 40 mg tablet,delayed 40 mg PO BID #60 tab 09/13/21 11/08/21 Rx release (Protonix) clopidogrel 75 mg tablet 75 mg PO QAM #30 tab 10/14/21 11/08/21 Rx rosuvastatin 20 mg tablet (Crestor) 20 mg PO QAM #30 tab 10/14/21 11/08/21 Rx tramadol 50 mg tablet 50 mg PO Q6H PRN #60 tab 10/27/21 11/08/21 Rx acetaminophen 325 mg tablet 650 mg PO Q4H PRN 11/08/21 11/08/21 History Past Med/Surg History Medical History Acute CVA (cerebrovascular accident) (~04/2021) Carotid artery disease GERD (gastroesophageal reflux disease) UNDER CONTROL History of CVA (cerebrovascular accident) (04/2021) Hypertension Ischemic ulcer of right foot Follows with Wound Clinic Left renal mass Left side- per 04/15/21 MRI= 1.6 x 1.0 cm or slightly exophytic focus within the lateral aspect of the left kidney.- worrisome for RCC per records- pt will follow up as outpatient. pt unaware PAD (peripheral artery disease) S/p stent to right LE February 2021 with [facility] Bilateral iliac artery stenosis Rectal mass pt unaware. Tobacco abuse Vasculopathy Surgical History H/O carotid endarterectomy 30-40 sec chest compressions required during surgery for asystole - possible prior much shorter vagal episode in past as well H/O exploratory laparotomy (01/22/21) Exploratory laparotomy, oversew perforated duodenal ulcer, abdominal washout. Dr. 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 Lung cancer PAD (peripheral artery disease) Denies family history of Ovarian cancer Prostate cancer Myocardial infarction Breast cancer Colorectal cancer Social History (Reviewed 11/08/21 @ 16:31 by ISAIAH Kwon Smoking Status: Current every day smoker Tobacco Type: Cigarettes Age Started Using Tobacco: 27; packs per day: 1; Cigarettes Per Day: 20 per day; Second Hand Exposure: Yes; Hx Alcohol Use: Yes Alcohol type: beer Alcohol Intake Frequency: 4 or More x per/Week Alcohol Intake Frequency Comment: 2-3 beers daily or more Hx Substance Use: No Preferred Language: Russian Communication Ability: Effective Visual Impairment: Limited Hearing Ability: Normal Business Services 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 Required: No Beliefs That Will Affect Care: None marital status: Current Living Situation: Spouse current occupational status: employed current occupation: [employer] How many Children do You have: 2 Feels Safe at Home: Yes Childhood Exposure to Second-Hand Smoke: Yes caffeine: Yes during the past year weight has: remained stable Dental Care, Regularly: No Physical Activity Frequency: Does not Exercise Physical Activity Frequency Comment: on feet at work all day Seatbelt Use: always Sunscreen Use: No Assistive Devices: Denture - Upper, Glasses and Special Shoe Review of Systems Review of Systems: REVIEW OF SYSTEMS: Constitutional: No fever, sweats or chills Eyes: No diplopia, no worsening or blurred vision ENT: normal hearing, no trouble swallowing Respiratory: (+) smoker and chronic dyspnea, No cough, sputum, dyspnea at rest or on exertion Cardiovascular: No chest pain, tightness or palpitations Abdomen: No pain, nausea, vomiting, diarrhea or constipation Musculoskeletal: (+) pain with woody edema, Neurologic: + pain and sensation loss to right foot, weakness Psychiatric: No anxiety or depression Physical Exam Physical Exam: PHYSICAL EXAM: General: awake, alert, no apparent distress Head: Normocephalic, atraumatic ENT: PERRL, EOMI, no pharyngeal exudate, mucous membranes moist Neuro: AAO x 3, speech clear and appropriate, strength intact bilaterally 5/5, no pronator drift Chest: equal rise and fall of the chest, no accessory muscle use, no heaves or thrills, scattered wheeze and crackles bilaterally Cardiac: Regular rate and rhythm, telemetry reviewed-NSR, skin warm dry, cap refill <3 seconds, peripheral pulses +2 no JVD, no murmur, no edema- right groin with palpable pulse, and bruit popliteal palpable GI: NABS x 4 quadrants, soft, nontender to palpation, no rebound, guarding or tenderness : Spontaneously voiding, no pain, no CVA tenderness, Extremities: Bilateral lower extremity edema right calf greater than left calf, hard woody edema on right leg to mid mc[place], left foot rubor in color with small ulceration on left 4th toe Psych: Normal mood and affect Skin: no rash or erythema Results & Data Results & Data ([facility]) Vital Signs (Past 12 Hours) Vital Signs Temp Pulse Pulse Resp BP BP Pulse Ox 11/08/21 15:38 36.6 C 96 H 18 136/58 L 95 11/08/21 13:22 36.8 C 108 H 20 124/57 L 97 Laboratory Results Abnormal Labs 11/08/21 11/08/21 14:40 14:40 RBC 3.41 L Hgb 9.6 L Hct 30.6 L MCHC 31.4 L RDW Std Deviation 51.8 H RDW Coeff of Odette 15.7 H Plt Count 460 H Neut # (Auto) 6.96 H Lymph # (Auto) 0.85 L Saline # (Auto) 0.81 H Sodium 132 L Creatinine 0.59 L BUN/Creatinine Ratio 25.4 H Glucose 132 H Alkaline Phosphatase 113 H Diagnostic Findings Foot X-Ray 11/08/21 14:12 XR foot RT min 3V routine CLINICAL HISTORY: pain infection TECHNIQUE: 3 views of the right foot were obtained. Comparison: Comparison is made to right foot radiographs 03/07/2021 FINDINGS: No evidence of bony erosion is seen. The alignment is anatomic. Bones are demineralized. Mild degenerative changes are seen throughout the foot. No soft tissue abnormality is identified. IMPRESSION: No radiographic evidence of osteomyelitis. If clinical concern remains, MRI is a more sensitive modality. ACT 112: Negative or not required by law. Electronically signed by: Ezra Queen M.D. 11/08/2021 3:06 PM US arterial duplex LE RT CLINICAL HISTORY: foot pain, vascular hx, dry gangrene TECHNIQUE: Real-time grayscale and color and spectral Doppler ultrasound imaging of the bilateral lower extremity arteries was performed. Measurements calculated based on NASCET criteria. COMPARISON: None available at the time of this dictation. FINDINGS: RIGHT: Common femoral artery: Biphasic waveforms. Peak systolic velocity (PSV) 207 cm/s. Deep femoral artery: Biphasic waveforms. PSV 225 cm/s. Superficial femoral artery: Monophasic waveforms. PSV 435 cm/s. Popliteal artery: Monophasic waveforms. PSV 58 cm/s. Anterior tibial artery: Monophasic waveforms. PSV 20 cm/s. Posterior tibial artery: Monophasic waveforms. PSV 37 cm/s. Peroneal artery: Monophasic waveforms. PSV 30 cm/s. Dorsalis pedis: No flow is seen. Of note, no flow is seen in the distal peroneal and mid anterior tibial arteries. Plaque is seen throughout the right lower extremity. IMPRESSION: Elevated velocities in the superficial femoral artery with decreased velocities distally and no flow in the distal peroneal and mid anterior tibial arteries as well as the dorsalis pedis. Findings are compatible with critical stenosis. Medications Administered Discontinued Medications Ceftriaxone Sodium (Rocephin) 2,000 mg in 70 mls @ 140 mls/hr IV NOW STA Stop: 11/08/21 14:39 Last Admin: 11/08/21 15:14 Dose: Not Given Documented by: [id number] Piperacillin Sod/Tazobactam Sod (Zosyn) 4.5 gm in 120 mls @ 240 mls/hr IV NOW ONE Stop: 11/08/21 14:59 Last Infusion: 11/08/21 15:25 Dose: 0 mls/hr Documented by: [id number] Admin: 11/08/21 14:45 Dose: 240 mls/hr Documented by: [id number] Vancomycin HCl 1,000 mg/ (Sodium Chloride) 270 mls @ 200 mls/hr IV NOW ONE Stop: 11/08/21 16:20 Last Admin: 11/08/21 15:36 Dose: 200 mls/hr Documented by: [id number] Oxycodone/Acetaminophen (Oxycodone/Acetaminophen 5mg/325mg Tab) 1 tab PO NOW STA Stop: 11/08/21 15:37 Last Admin: 11/08/21 15:44 Dose: 1 tab Documented by: [id number] ECG Additional Comments: Sinus rhythm with Premature atrial complexes Otherwise normal ECG When compared with ECG of 24-MAY-2021 10:58, Premature atrial complexes are now Present Code Status & VTE Plan Code Status CODE: FULL VTE: SCDS, Heparin 5000 untis sub q q12 Supervising Physician Co-Signing Physician Notes Patient was seen and examined independently I discussed the case with Saroj MARTINS I reviewed pertinent past medical social family history and also the plan of care and agree with the plan of care. Patient presented with significant dry gangrene of her right foot initially we were told it might be just the transmetatarsal area but it seems to be involving more of her foot. She has poor pulses and changes of arterial insufficiency to both lower legs with poor flow in each side. Patient has significant gangrene will need to be covered to prevent systemic infection and evaluated for most likely a BKA or an AKA. Also notably the patient has suffered a recent CVA and has occlusion of her left carotid artery which is complete Any exceptions will be noted below PG Care Time/CCT Total # of Minutes Spent Total Time Spent with Patient: Total time spent is greater than 50% in coordination of care (as documented) at patient's floor/unit and/or counseling patient: Coding Level of Care Code 24953 Initial Inpt Care Lvl 3 Diagnoses Gangrene of toe of right foot I96 Tobacco abuse Z72.0 Carotid artery disease I65.23 Carotid artery disease type: stenosis Laterality: bilateral Hypertension I10 History of CVA (cerebrovascular accident) Z86.73 Chronic pain G89.29 PAD (peripheral artery disease) I73.9 (1) Carotid artery disease Carotid artery disease type: stenosis Laterality: bilateral Qualified Code(s): I65.23 - Occlusion and stenosis of bilateral carotid arteries
--- NOTE | 2021-11-08 17:22 | Ultrasound Report ---
US arterial duplex LE RT CLINICAL HISTORY: foot pain, vascular hx, dry gangrene TECHNIQUE: Real-time grayscale and color and spectral Doppler ultrasound imaging of the bilateral low er extremity arteries was performed. Measurements calculated based on NASCET criteria. COMPARISON: None available at the time of this dictation. FINDINGS: RIGHT: Common femoral artery: Biphasic waveforms. Peak systolic velocity (PSV) 207 cm/s. Deep femoral artery: Biphasic waveforms. PSV 225 cm/s. Superficial femoral artery: Monophasic waveforms. PSV 435 cm/s. Popliteal artery: Monophasic waveforms. PSV 58 cm/s. Anterior tibial artery: Monophasic waveforms. PSV 20 cm/s. Posterior tibial artery: Monophasic waveforms. PSV 37 cm/s. Peroneal artery: Monophasic waveforms. PSV 30 cm/s. Dorsalis pedis: No flow is seen. Of note, no flow is seen in the distal peroneal and mid anterior tibial arteries. Plaque is seen thro ughout the right lower extremity. IMPRESSION: Elevated velocities in the superficial femoral artery with decreased velocities distally and no flow in the distal peroneal and mid anterior tibial arteries as well as the dorsalis pedis. Findings are c ompatible with critical stenosis. ACT 112: Negative or not required by law. Electronically signed by: Ezra Queen M.D. 11/08/2021 5:20 PM
[2021-11-08] MEDS ORDERED: UMECLIDINIUM/VILANTEROL 62.5/25MCG 7 PUFFS/INHALER INH PRN (18:13)
[2021-11-08] MEDS ORDERED: PIPERACILL/TAZOBAC CONSULT ACTIVE PRN (18:13)
[2021-11-08] MEDS ORDERED: ACETAMINOPHEN 325 MG TAB PO PRN (18:13)
[2021-11-08] MEDS: PIPERACILLIN/TAZOBACTAM 3.375 GM in DEXTROSE 5% 100 ML IV SCH (21:25)
[2021-11-08] MEDS: HEPARIN SOD 5,000 UNIT/0.5 ML VIAL SQ SCH (21:30)
[2021-11-08] MEDS: FERROUS SULFATE 325 MG TAB PO SCH (21:31)
[2021-11-08] MEDS: PANTOprazole 40 MG TAB PO SCH (21:31)
[2021-11-08] MEDS: carvediloL 12.5 MG TAB PO SCH (21:32)
[2021-11-09] MEDS: PIPERACILLIN/TAZOBACTAM 3.375 GM in DEXTROSE 5% 100 ML IV SCH ×3 (05:02→20:59)
[2021-11-09 07:08] LABS: Basophils # (auto) 0.02 K/uL (0-0.2); Basophils % (auto) 0.3 %; Eosinophils # (auto) 0.09 K/uL (0-0.5); Eosinophils % (auto) 1.1 %; Hematocrit (blood only) 29.4 % (37-47); Hemoglobin 9.3 g/dL (12.0-16.0); Immature Granulocytes # (auto) 0.02 K/uL (0.00-0.02); Immature Granulocytes % (auto) 0.3 %; Lymphocytes # (auto) 0.74 K/uL (1.2-3.4); Lymphocytes % (auto) 9.5 %; Mean Corpuscular Hemoglobin 27.9 pg (25-34); Mean Corpuscular Hgb Conc 31.6 g/dL (32-36); Mean Corpuscular Volume 88.3 fL (80-100); Mean Platelet Volume 7.8 fL (7.4-10.4); Monocytes # (auto) 0.58 K/uL (0.11-0.59); Monocytes % (auto) 7.4 %; Neutrophils # (auto) 6.38 K/uL (1.4-6.5); Neutrophils % (auto) 81.4 %; Platelet Count 350 K/uL (130-400); RDW Coefficient of Variation 15.4 % (11.5-14.5); RDW Standard Deviation 50.4 fL (36.4-46.3); Red Blood Count 3.33 M/uL (4.2-5.4); White Blood Count 7.83 K/uL (4.8-10.8)
[2021-11-09 07:33] LABS: BUN Creatinine Ratio 21.3 (10-20); Calcium 8.8 mg/dl (8.5-10.1); Creatinine Clr Calc Pharmacy 91.1 ml/min; Est GFR (Non-African American) 104.4 ml/min; Magnesium 1.8 mg/dl (1.7-2.4); Potassium 3.9 mmol/L (3.5-5.1)
--- NOTE | 2021-11-09 07:34 | Hospitalist Progress Note ---
Date of Service November 09, 2021 Assessment & Plan (1) Gangrene of toe of right foot: Plan: 66 year old female PmHx PAD, HLD, COPD, current smoker, HTN, CVA, and chronic wound of the right foot admitted for worsening of infection of right foot and concern for gangrene. Gangrene of toe of right foot: - Hx R lower extremity ulcers and osteo w/ current treatment of Bactrim. - Extensive PAD history. - Arterial doppler showing findings compatible w/ critical stenosis. - Consulted vascular surgery. - Extensive gangrene, not a candidate for bypass at this time. - Recommend R below knee amputation. Patient still considering at this time. - NPO for potential surgery, Plavix on hold. - Continue Zosyn 3.375 q8. Restarted on home Bactrim DS BID. - Tramadol and tylenol PRN for pain. Tobacco abuse: - Long history of smoking. - Most likely contributor to patients vascular disease. 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 Carotid artery disease: - History of Left total occlusion - On heparin SQ. - Continue statin, losartan, aspirin HTN: - Continue home losartan. Hx of Anemia: - Hgb 9.6 on admission, 9.3 on repeat CBC. - AM CBC. Dispo: Med/Surg DVT Prophylaxis: Heparin SQ Code Status: Full Code Diet: NPO (2) Carotid artery disease: (3) Tobacco abuse: (4) PAD (peripheral artery disease): Admission and Anticipated Discharge Date Admission Date: November 08, 2021 Supervising Physician Co-Signing Physician Notes Resident Physician Supervision Note: I independently interviewed and examined the patient and verified the finney history and physical, reviewed labs and image studies and agree with resident Dr. Olivares findings and care plan. Subjective Patient was seen at the bedside this morning. Patient stated she is feeling okay this morning with foot pain on the right. Patient still has feeling at feet although diminished at toes. She stated she has a history of osteomyelitis for which she takes an antibiotic for treatment. Denies fevers, chills, shortness of breath above her baseline. Physical Exam Constitutional: WD/WN, vitals as above Respiratory: Mild wheezes auscultated bilaterally. On nasal cannula. Cardiovascular: RRR, no murmur, no edema Peripheral pulses present but diminished at lower extremities. Gastrointestinal (Abdomen): normal bowel sounds, soft, nontender, no hepatosplenomegaly Results & Data Results & [facility] ([facility]) Vital Signs (Past 12 Hours) Vital Signs Temp Pulse Resp BP BP Pulse Ox 11/09/21 05:14 36.5 C 90 18 186/77 H 92 11/08/21 22:55 98 H 93 11/08/21 22:53 36.7 C 100 H 18 141/66 H 88 L 11/08/21 21:20 105 H 150/72 H Resident Activity Tracking Resident Involvement: Resident Care Provided Care Provided: Adult Hospital Medicine (1) Carotid artery disease Carotid artery disease type: stenosis Laterality: bilateral Qualified Code(s): I65.23 - Occlusion and stenosis of bilateral carotid arteries
--- NOTE | 2021-11-09 08:04 | Electrocardiogram Report ---
Test Reason : Blood Pressure : / mmHG Vent. Rate : 098 BPM Atrial Rate : 098 BPM P-R Int : 144 ms QRS Dur : 094 ms QT Int : 352 ms P-R-T Axes : 066 073 074 degrees QTc Int : 449 ms Sinus rhythm with Premature atrial complexes Otherwise normal ECG When compared with ECG of 24-MAY-2021 10:58, Premature atrial complexes are now Present Confirmed by Gregor Brand ([id number]) on 11/09/2021 8:04:18 AM Referred By: REFERRED SELF Confirmed By:Gregor Brand
[2021-11-09] MEDS: LOSARTAN POTASSIUM 50 MG TAB PO SCH (08:17)
[2021-11-09] MEDS: carvediloL 12.5 MG TAB PO SCH ×2 (08:17→20:54)
[2021-11-09] MEDS: FERROUS SULFATE 325 MG TAB PO SCH ×3 (08:17→21:00)
[2021-11-09] MEDS: PANTOprazole 40 MG TAB PO SCH ×2 (08:17→21:01)
[2021-11-09] MEDS: ASPIRIN 81 MG ECTAB PO SCH (08:17)
[2021-11-09] MEDS: ROSUVASTATIN CALCIUM 20 MG TAB PO SCH (08:17)
[2021-11-09] MEDS: HEPARIN SOD 5,000 UNIT/0.5 ML VIAL SQ SCH ×2 (08:18→21:02)
[2021-11-09] MEDS: traMADol HCL 50 MG TABLET PO PRN ×2 (10:15→20:54)
--- NOTE | 2021-11-09 12:01 | XRay Report ---
XR chest 1V portable CLINICAL HISTORY: Shortness of breath TECHNIQUE: Single frontal radiograph of the chest was obtained. Comparison: Comparison is made to chest one view 05/24/2021 FINDINGS: No lines and tubes are seen. The cardiomediastinal silhouette is normal. The lungs are clear. No evid ence of pleural effusion or pneumothorax. IMPRESSION: No acute chest disease. ACT 112: Negative or not required by law. Electronically signed by: Ezra Queen M.D. 11/09/2021 12:00 PM
[2021-11-09] MEDS: MoRPHine SULFATE 2 MG/ML CARP IV PRN (12:08)
--- NOTE | 2021-11-09 12:50 | Consultation ---
Date of Consultation November 09, 2021 Assessment & Plan (1) Gangrene of toe of right foot: This 66-year-old has developed progressive gangrenous changes of the right foot. I did review her previous arteriography at which time she underwent balloon angioplasty of the superficial femoral artery. She now has restenosis of the right lower extremity with monophasic waveforms below the groin distally on the ultrasound the peroneal posterior tibial and possibly anterior tibial arteries are seen to be patent with very slow flow. Due to the extensive gangrene right foot she is not a bypass candidate to undergo femoral to distal bypass for limb salvage. Recommended a right below-knee amputation at this time. She cannot come to a decision today. She will think about it and will talk to her tomorrow further about the amputation. Thank you very much for letting us participate in the care of this patient. History of Present Illness Reason for Consultation: Gangrene right foot Attending Physician: Mera Mike MD History of Present Illness This 66-year-old female with past medical history of: CVA, GERD, HTN, HLD, COPD, smoker, PAD, chronic wound of right foot. She presented to the ED at this time with color changes to the right foot which has been progressively worse over the last few weeks. She has been treated in the past for peripheral artery disease of the right lower extremity as well as osteononhealing ulcer right foot. She has had multiple interventions in the right lower extremity. In January of last year she underwent a right carotid endarterectomy. After discharge she returned with an occluded left internal carotid artery and a left hemispheric CVA. She has had no further symptoms since then. Allergies Allergy/AdvReac Type Severity Reaction Status Date / Time No Known Allergies Allergy Mild Verified 11/08/21 15:21 Home Medications Medication Instructions Recorded Confirmed Type aspirin 81 mg tablet,delayed 81 mg PO QAM #90 tab 06/22/21 11/08/21 Rx release carvedilol 12.5 mg tablet (Coreg) 12.5 mg PO BID 07/20/21 11/08/21 History thiamine HCl (vitamin B1) 100 mg 100 mg PO QAM 07/20/21 11/08/21 History tablet losartan 50 mg tablet 50 mg PO QAM 09/08/21 11/08/21 History umeclidinium 62.5 mcg-vilanterol 1 inh INHALATION DAILY PRN 09/08/21 11/08/21 History 25 mcg/actuation powdr for inhalation (Anoro Ellipta) ferrous sulfate 325 mg (65 mg 325 mg PO TID #90 tab 09/13/21 11/08/21 Rx iron) tablet pantoprazole 40 mg tablet,delayed 40 mg PO BID #60 tab 09/13/21 11/08/21 Rx release (Protonix) clopidogrel 75 mg tablet 75 mg PO QAM #30 tab 10/14/21 11/08/21 Rx rosuvastatin 20 mg tablet (Crestor) 20 mg PO QAM #30 tab 10/14/21 11/08/21 Rx tramadol 50 mg tablet 50 mg PO Q6H PRN #60 tab 10/27/21 11/08/21 Rx acetaminophen 325 mg tablet 650 mg PO Q4H PRN 11/08/21 11/08/21 History Patient History Medical History Acute CVA (cerebrovascular accident) (~04/2021) Carotid artery disease GERD (gastroesophageal reflux disease) UNDER CONTROL History of CVA (cerebrovascular accident) (04/2021) Hypertension Ischemic ulcer of right foot Follows with [facility] Left renal mass Left side- per 04/15/21 MRI= 1.6 x 1.0 cm or slightly exophytic focus within the lateral aspect of the left kidney.- worrisome for RCC per records- pt will follow up as outpatient. pt unaware PAD (peripheral artery disease) S/p stent to right LE February 2021 with SANDY Bilateral iliac artery stenosis Rectal mass pt unaware. Tobacco abuse Vasculopathy Surgical History H/O carotid endarterectomy 30-40 sec chest compressions required during surgery for asystole - possible prior much shorter vagal episode in past as well H/O exploratory laparotomy (01/22/21) Exploratory laparotomy, oversew perforated duodenal ulcer, abdominal washout. Dr. 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 Lung cancer PAD (peripheral artery disease) Denies family history of Ovarian cancer Prostate cancer Myocardial infarction Breast cancer Colorectal cancer Social History Smoking Status: Current every day smoker Tobacco Type: Cigarettes Age Started Using Tobacco: 27; packs per day: 1; Cigarettes Per Day: 20 per day; Second Hand Exposure: Yes; Hx Alcohol Use: Yes Alcohol type: beer Alcohol Intake Frequency: 4 or More x per/Week Alcohol Intake Frequency Comment: 2-3 beers daily or more Hx Substance Use: No Preferred Language: Albanian Communication Ability: Effective Visual Impairment: Limited Hearing Ability: Normal 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 Beliefs That Will Affect Care: None marital status: Current Living Situation: Spouse current occupational status: employed current occupation: [employer] How many Children do You have: 2 Feels Safe at Home: Yes Childhood Exposure to Second-Hand Smoke: Yes caffeine: Yes during the past year weight has: remained stable Dental Care, Regularly: No Physical Activity Frequency: Does not Exercise Physical Activity Frequency Comment: on feet at work all day Seatbelt Use: always Sunscreen Use: No Assistive Devices: Glasses Review of Systems Review of Systems: All systems reviewed & are unremarkable except as noted in HPI & below Respiratory: Shortness of breath secondary to smoking history Physical Exam Constitutional: WD/WN, vitals as above + cachectic Respiratory: normal respiratory effort, lungs clear to auscultation Cardiovascular: RRR, no murmur, no edema Vessels: femoral pulses present and radial pulses present; + posterior tibial pulses abnormal and + dorsalis pedis pulses abnormal Extremities: normal capillary refill (Decreased capillary refill left foot) Gastrointestinal (Abdomen): normal bowel sounds, soft, nontender, no hepatosplenomegaly Musculoskeletal: no cyanosis or clubbing, extremities motor strength 5/5 There is gangrene present toes of the right foot as well as the forefoot both dorsal and plantar aspect back almost to the calcaneus Neurologic: CN's II-XI intact bilaterally and moves all extremities No sensation of the right foot Psychiatric: Orientation: alert and oriented x 3 Results & Data ([facility]) Vital Signs (Past 12 Hours) Vital Signs Temp Pulse Resp BP Pulse Ox 11/09/21 05:14 36.5 C 90 18 186/77 H 92
[2021-11-09] MEDS ORDERED: OPTIRAY 320 125ml IV ONE (13:33)
--- NOTE | 2021-11-09 13:52 | CT Scan Report ---
CT ANGIOGRAPHY OF THE CHEST, PULMONARY EMBOLUS PROTOCOL CLINICAL HISTORY: Shortness of breath. Evaluate for pulmonary embolus. COMPARISON STUDY: Chest radiograph performed earlier today. TECHNIQUE: Following IV administration of 82 mL of Optiray, helical axial images of the chest were ob tained utilizing the pulmonary embolus protocol. Maximal intensity projections and sagittal and dilan nal reformats were viewed on an independent 3D workstation. IV contrast was administered without com plication. Automated exposure control was utilized for the study. A dose lowering technique was uti lized adhering to the principles of ALARA. CT DOSE: 210.13 mGycm FINDINGS: No pulmonary emboli identified although the subsegmental vessels are suboptimally assessed due to respiratory motion. Mild cardiomegaly is noted. There is no pericardial effusion. There is mo derate coronary artery calcification. Note is made of occlusion of the left common carotid artery whi ch was shown on CT of May 24, 2021. There is no thoracic aortic dissection. There is moderate plaque of the thoracic aorta. No pneumothorax or pleural effusion is noted. Subpleural opacities, greater w ithin the right lower lobe, favor atelectasis. No consolidation is identified to suggest pneumonia. M oderate emphysema is present. Note is made of extensive secretions within the left lower lobe bronchi . There are mild secretions within the bilateral mainstem bronchi. Lungs are suboptimally assessed du e to respiratory motion. No thoracic lymphadenopathy is present. There is probable short segment occl usion with distal reconstitution of the proximal celiac axis. This is likely chronic. IMPRESSION: 1. No pulmonary emboli identified although subsegmental pulmonary arteries suboptimally assessed due to respiratory motion. 2. Moderate emphysema. 3. Secretions within the bilateral lower lobes bronchi, greater on the left. Follow-up chest CT in 3 months to ensure resolution is recommended. 4. Extensive vascular disease, as described above. ACT 112: Negative or not required by law. Electronically signed by: Km Carey M.D. 11/09/2021 1:51 PM
[2021-11-09] MEDS: ACETAMINOPHEN 325 MG TAB PO PRN ×2 (14:46→20:53)
--- NOTE | 2021-11-09 20:11 | Ultrasound Report ---
US venous doppler LE RT HISTORY: 66 years-old Female knee pain DVT evaluation . Acute pain and swelling of the right lower l eg COMPARISON: CTA of the chest of same day TECHNIQUE: Multiple real-time sonographic images of the right lower extremity deep venous structures were obtained assessing grayscale appearance, color and spectral flow. FINDINGS: Normal flow, compressibility, phasicity and augmentation. The study is limited secondary to patient p ositioning. A physiologic appearing right inguinal chain lymph node measures 1.1 x 0.7 x 3.3 cm IMPRESSION: No sonographic evidence of deep venous thrombosis. ACT 112: Negative or not required by law. The above report was generated using voice recognition software. It may contain grammatical, syntax o r spelling errors. Electronically signed by: Earle Rankin M.D. 11/09/2021 8:10 PM
[2021-11-09] MEDS: SULFAMETHOXAZOLE/TRIMETHOPRIM DS 800/160MG TAB PO SCH ×2 (21:32→21:34)
[2021-11-10] MEDS: ACETAMINOPHEN 325 MG TAB PO PRN ×3 (01:11→20:12)
[2021-11-10] MEDS: traMADol HCL 50 MG TABLET PO PRN ×3 (03:20→19:32)
[2021-11-10] MEDS: PIPERACILLIN/TAZOBACTAM 3.375 GM in DEXTROSE 5% 100 ML IV SCH ×3 (03:21→19:33)
[2021-11-10 06:24] LABS: Basophils # (auto) 0.03 K/uL (0-0.2); Basophils % (auto) 0.4 %; Eosinophils # (auto) 0.09 K/uL (0-0.5); Eosinophils % (auto) 1.3 %; Hematocrit (blood only) 28.7 % (37-47); Hemoglobin 8.9 g/dL (12.0-16.0); Immature Granulocytes # (auto) 0.01 K/uL (0.00-0.02); Immature Granulocytes % (auto) 0.1 %; Lymphocytes # (auto) 0.72 K/uL (1.2-3.4); Lymphocytes % (auto) 10.6 %; Mean Corpuscular Hemoglobin 27.4 pg (25-34); Mean Corpuscular Volume 88.3 fL (80-100); Mean Platelet Volume 8.1 fL (7.4-10.4); Monocytes # (auto) 0.58 K/uL (0.11-0.59); Monocytes % (auto) 8.6 %; Neutrophils # (auto) 5.35 K/uL (1.4-6.5); Platelet Count 393 K/uL (130-400); RDW Coefficient of Variation 15.4 % (11.5-14.5); Red Blood Count 3.25 M/uL (4.2-5.4); White Blood Count 6.78 K/uL (4.8-10.8)
[2021-11-10 07:00] LABS: Calcium 8.7 mg/dl (8.5-10.1); Creatinine Clr Calc Pharmacy 85.6 ml/min; Est GFR (African American) 118.5 ml/min; Est GFR (Non-African American) 102.3 ml/min; Magnesium 1.7 mg/dl (1.7-2.4); Potassium 3.9 mmol/L (3.5-5.1)
--- NOTE | 2021-11-10 07:19 | Hospitalist Progress Note ---
Date of Service November 10, 2021 Assessment & Plan (1) Gangrene of toe of right foot: Plan: 66 year old female PmHx PAD, HLD, COPD, current smoker, HTN, CVA, and chronic wound of the right foot admitted for worsening of infection of right foot and concern for gangrene. Gangrene of toe of right foot: - Hx R lower extremity ulcers and osteo w/ current treatment of Bactrim. - Extensive PAD history. - Arterial doppler showing findings compatible w/ critical stenosis. - Consulted vascular surgery. - Extensive gangrene, not a candidate for bypass at this time. - Recommend R below knee amputation. - In discussion with Dr. Baker, patient wants to hold off at this time despite risks. - Will ask patient again tomorrow. - NPO at midnight for potential surgery, Plavix on hold. - Continue Zosyn 3.375 q8. Restarted on home Bactrim DS BID. - Tramadol and tylenol PRN for pain. Right knee pain: - Knee pain with contracture - unable to image - consult ortho Tobacco abuse: - Long history of smoking. - Most likely contributor to patients vascular disease. 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 Shortness of breath: -Patient not usually on O2 at baseline. -Extensive history of smoking and atherosclerotic disease. -CTA negative, Doppler US RLE negative for DVT. -Continue O2 as needed for O2 sat 88 and above. Carotid artery disease: - History of Left total occlusion - On heparin SQ. - Continue statin, losartan, aspirin HTN: - Continue home losartan. Hx of Anemia: - Hgb 9.6 on admission, 8.9 on repeat CBC. - AM CBC. Dispo: Med/Surg DVT Prophylaxis: Heparin SQ Code Status: Full Code Diet: NPO (2) Carotid artery disease: (3) Tobacco abuse: (4) PAD (peripheral artery disease): Admission and Anticipated Discharge Date Admission Date: November 08, 2021 Supervising Physician Co-Signing Physician Notes Resident Physician Supervision Note: I independently interviewed and examined the patient and verified the finney history and physical, reviewed labs and image studies and agree with resident Dr. Olivares findings and care plan. c/o sever pain in right knee. unable to extend the knee. no swelling. generalized tenderness will consult ortho since not able to image Subjective Patient seen at the bedside this morning. Patient feeling fine today but still with pain at right foot. At the time I saw the patient she said she was still thinking over whether to have the amputation today. Denies any fevers, chills, nausea, vomiting, shortness of breath above baseline. Physical Exam Constitutional: WD/WN, vitals as above Cardiovascular: RRR, no murmur, no edema Gastrointestinal (Abdomen): normal bowel sounds, soft, nontender, no hepatosplenomegaly Results & Data Results & Data ([facility]) Vital Signs (Past 12 Hours) Vital Signs Temp Pulse Resp BP BP Pulse Ox 11/09/21 22:35 131/70 11/09/21 22:17 36.6 C 79 18 179/75 H 95 11/09/21 20:51 76 148/67 H Resident Activity Tracking Resident Involvement: Resident Care Provided Care Provided: Adult Hospital Medicine (1) Carotid artery disease Carotid artery disease type: stenosis Laterality: bilateral Qualified Co de(s): I65.23 - Occlusion and stenosis of bilateral carotid arteries
[2021-11-10] MEDS: HEPARIN SOD 5,000 UNIT/0.5 ML VIAL SQ SCH ×2 (08:14→20:15)
[2021-11-10] MEDS: SULFAMETHOXAZOLE/TRIMETHOPRIM DS 800/160MG TAB PO SCH ×2 (08:29→22:01)
[2021-11-10] MEDS: carvediloL 12.5 MG TAB PO SCH ×2 (08:29→20:15)
[2021-11-10] MEDS: ROSUVASTATIN CALCIUM 20 MG TAB PO SCH (08:29)
[2021-11-10] MEDS: ASPIRIN 81 MG ECTAB PO SCH (08:29)
[2021-11-10] MEDS: LOSARTAN POTASSIUM 50 MG TAB PO SCH (08:29)
[2021-11-10] MEDS: PANTOprazole 40 MG TAB PO SCH ×2 (08:29→20:15)
[2021-11-10] MEDS: FERROUS SULFATE 325 MG TAB PO SCH ×3 (08:59→20:15)
--- NOTE | 2021-11-10 12:53 | XRay Report ---
XR chest 1V portable CLINICAL HISTORY: shortness of breath. COMPARISON STUDY: 11/09/[address] chest from 11/09/2021 TECHNIQUE: 1 view of the chest FINDINGS: Single frontal view of the chest demonstrates the cardiomediastinal silhouette to be within normal li mits. Mild prominence of the interstitial markings is seen involving the lower lobes bilaterally alina esponding to the finding seen on the chest CT. There are again most characteristic of secretions with no definite evidence for pneumonia. The lungs are clear of alveolar opacities. There is no evidence for pleural effusion. There is no evidence for vascular congestion. There is no acute osseous patholo gy. IMPRESSION: No acute cardiopulmonary disease. Prominence of the interstitial markings at the lung bas es as described. ACT 112: Negative or not required by law. Electronically signed by: Henry Duvall M.D. 11/10/2021 12:51 PM
--- NOTE | 2021-11-10 13:21 | Surgery Progress Note ---
Date of Service November 10, 2021 Assessment & Plan (1) Gangrene of toe of right foot: Plan: Discussed amputation again with patient. She wants to hold off at this time. It appears she understands that this can get worse and cause other systemic problems including . We will check on her again tomorrow Admission and Anticipated Discharge Date Admission Date: November 08, 2021 Subjective Patient does not want to undergo amputation at this time. She wants to try other treatments. I told her that there is nothing we can do other than just watching the foot for infection or progression Physical Exam Physical Exam: No changes in gangrene of right foot. Starting to develop a right knee contracture. Results & Data ([facility]) Vital Signs (Past 12 Hours) Vital Signs Temp Pulse Resp BP Pulse Ox 11/10/21 07:28 36.5 C 72 18 174/69 H 98
[2021-11-10] MEDS: MoRPHine SULFATE 2 MG/ML CARP IV PRN (23:01)
[2021-11-11] MEDS: PIPERACILLIN/TAZOBACTAM 3.375 GM in DEXTROSE 5% 100 ML IV SCH ×3 (04:02→20:53)
[2021-11-11] MEDS: traMADol HCL 50 MG TABLET PO PRN ×2 (04:51→13:19)
[2021-11-11 06:23] LABS: Basophils # (auto) 0.04 K/uL (0-0.2); Basophils % (auto) 0.5 %; Eosinophils # (auto) 0.07 K/uL (0-0.5); Eosinophils % (auto) 0.8 %; Hematocrit (blood only) 29.6 % (37-47); Hemoglobin 9.4 g/dL (12.0-16.0); Immature Granulocytes # (auto) 0.01 K/uL (0.00-0.02); Immature Granulocytes % (auto) 0.1 %; Lymphocytes # (auto) 0.75 K/uL (1.2-3.4); Lymphocytes % (auto) 8.9 %; Mean Corpuscular Hemoglobin 27.7 pg (25-34); Mean Corpuscular Hgb Conc 31.8 g/dL (32-36); Mean Corpuscular Volume 87.3 fL (80-100); Mean Platelet Volume 8.4 fL (7.4-10.4); Monocytes # (auto) 0.69 K/uL (0.11-0.59); Monocytes % (auto) 8.2 %; Neutrophils % (auto) 81.5 %; Platelet Count 440 K/uL (130-400); RDW Coefficient of Variation 15.4 % (11.5-14.5); RDW Standard Deviation 49.8 fL (36.4-46.3); Red Blood Count 3.39 M/uL (4.2-5.4); White Blood Count 8.46 K/uL (4.8-10.8)
[2021-11-11 06:43] LABS: Calcium 8.8 mg/dl (8.5-10.1); Creatinine Clr Calc Pharmacy 72.5 ml/min; Est GFR (African American) 112.3 ml/min; Est GFR (Non-African American) 96.9 ml/min; Magnesium 1.7 mg/dl (1.7-2.4)
--- NOTE | 2021-11-11 07:16 | Hospitalist Progress Note ---
Date of Service November 11, 2021 Assessment & Plan (1) Gangrene of toe of right foot: Plan: 66 year old female PmHx PAD, HLD, COPD, current smoker, HTN, CVA, and chronic wound of the right foot admitted for worsening of infection of right foot and concern for gangrene. Gangrene of toe of right foot: - Hx R lower extremity ulcers and osteo w/ current treatment of Bactrim. - Extensive PAD history. - Arterial doppler showing findings compatible w/ critical stenosis. - Consulted vascular surgery. - Extensive gangrene, not a candidate for bypass at this time. - May require above knee amputation. Plan possibly for next week. - Resume diet and plavix until potential surgery. - Continue Zosyn 3.375 q8. - D/c home Bactrim tomorrow due to end of ID intended duration. - Tramadol and tylenol PRN for pain. Right knee pain: - Knee pain with contracture - Ortho consulted - CT R knee: no acute fracture, effusion. Severe osteopenia, mild osteoarthritis. - XR R Tibia/Fibula: No acute fracture. - XR Hip/Pelvis: no acute bony abnormalities. - Trial Baclofen 10mg PO without much improvement in ability to extend the right leg at knee. - Ordered Diclofenac topical QID - at knee for possible arthritis related pain relief. - follow and consider knee joint injection. Tobacco abuse: - Long history of smoking. - Most likely contributor to patients vascular disease. 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 Hypoxia with Shortness of breath: -Patient not usually on O2 at baseline. -Extensive history of smoking and atherosclerotic disease. -CTA negative, Doppler US RLE negative for DVT. -Check PFT -Continue O2 as needed for O2 sat 88 and above. Carotid artery disease: - History of Left total occlusion - On heparin SQ. - Continue statin, losartan, aspirin HTN: - Continue home losartan. Hx of Anemia: - Hgb 9.6 on admission, 9.4 on repeat CBC. - AM CBC. Dispo: Med/Surg DVT Prophylaxis: Heparin SQ Code Status: Full Code Diet: NPO (2) Carotid artery disease: (3) Tobacco abuse: (4) PAD (peripheral artery disease): Admission and Anticipated Discharge Date Admission Date: November 08, 2021 Supervising Physician Co-Signing Physician Notes Resident Physician Supervision Note: I independently interviewed and examined the patient and verified the finney history and physical, reviewed labs and image studies and agree with resident Dr. Olivares findings and care plan. Subjective Patient seen at the bedside this morning. Patient says she is still having pain at her right foot and right knee. She feels the muscle is still stiff even after administration of a muscle relaxant. Denies nausea, fevers, chills, shortness of breath above baseline. Physical Exam Constitutional: WD/WN, vitals as above Respiratory: Auscultation: + rhonchi (bilaterally) On nasal cannula. Cardiovascular: RRR, no murmur, no edema Gastrointestinal (Abdomen): normal bowel sounds, soft, nontender, no hepatosplenomegaly Results & Data Results & Data ([facility]) Vital Signs (Past 12 Hours) Vital Signs Temp Pulse Pulse Resp BP Pulse Ox 11/10/21 22:01 92 11/10/21 22:00 36.7 C 67 18 115/54 L 80 L 11/10/21 20:14 82 168/65 H Resident Activity Tracking Resident Involvement: Resident Care Provided Care Provided: Adult [facility] (1) Carotid artery disease Carotid artery disease type: stenosis Laterality: bilateral Qualified Code(s): I65.23 - Occlusion and stenosis of bilateral carotid arteries
--- NOTE | 2021-11-11 09:04 | XRay Report ---
XR knee RT 1 or 2V routine CLINICAL HISTORY: Right knee pain. COMPARISON: None FINDINGS: Exam is compromised by patient's inability to extend the right knee. There is no evidence for a joint effusion. No acute fracture. No suspicious osseous lesions are noted. There is possible o steopenia. Moderate vascular calcification is noted. IMPRESSION: 1. No acute fracture or joint effusion of the right knee. 2. Suboptimal evaluation given inability to extend the knee. ACT 112: Negative or not required by law. Electronically signed by: Km Carey M.D. 11/11/2021 9:02 AM
--- NOTE | 2021-11-11 09:08 | XRay Report ---
SINGLE VIEW PELVIS; 2 VIEWS RIGHT HIP; 3 VIEWS RIGHT FEMUR CLINICAL HISTORY: Right hip and knee pain. FINDINGS: An AP view of the pelvis, AP and frog-leg views of the right hip, and AP, crosstable latera l, and frog-leg views of the right femur are obtained. Correlation is made with pelvic CT dated 2020. The skeletal structures are osteopenic. There is no radiographic evidence of acute fracture inv olving the hips or bony pelvis. There is no radiographic evidence of right femoral fracture. Mild to moderate degenerative joint space narrowing is present in both hips. Sclerotic change is seen in the sacroiliac joints. Lumbosacral spondylosis is partially visualized. The right knee joint is grossly m aintained. The overlying soft tissues are within normal limits. There is advanced atherosclerotic donald cification of the iliac and femoral arteries. A right iliac artery stent is in place. There is no bow el obstruction. Phleboliths are noted in the pelvis. IMPRESSION: 1. No acute bony abnormality is seen involving the hips or pelvis. 2. There is no radiographic evidence of right femoral fracture. 3. Osteopenia and mild degenerative change as above. Electronically signed by: Dae Quintero M.D. 11/11/2021 9:07 AM
--- NOTE | 2021-11-11 09:27 | CT Scan Report ---
CT OF THE RIGHT KNEE WITHOUT CONTRAST CLINICAL HISTORY: Right knee pain. COMPARISON STUDY: Right knee radiographs performed earlier today. TECHNIQUE: Axial images of the right knee were obtained without IV contrast. Sagittal and coronal rec onstructions were viewed. Automated exposure control was utilized for the study. A dose lowering amy hnique was utilized adhering to the principles of ALARA. FINDINGS: Patient was unable to extend the right knee. No acute fracture is noted. There is no suspic ious osseous lesion. Severe osteopenia is noted. There is no significant joint effusion. Mild osteoph ytosis within the medial compartment of the right knee is noted. There is mild medial compartment maggie nt space narrowing. No mass or fluid collection adjacent to the right knee is present. There is no so ft tissue gas. IMPRESSION: 1. No acute fracture or joint effusion of the right knee. 2. Severe osteopenia. 3. Mild osteoarthritis within the medial compartment of the right knee. ACT 112: Negative or not required by law. Electronically signed by: Km Carey M.D. 11/11/2021 9:26 AM
--- NOTE | 2021-11-11 09:32 | XRay Report ---
XR tibia fibula RT 2V HISTORY: 66 years-old Female knee pain acute pain and swelling of the right knee and lower leg COMPARISON: Right knee CT of same day TECHNIQUE: 2 views of the right tibia and fibula FINDINGS: Demineralized appearance of the bones. Mild osteoarthritis of the knee and ankle. No acute fracture, dislocation or osseous erosion. Unremarkable soft tissues. Arterial calcifications. A corticated ossi fication is noted adjacent to the medial malleolus suggestive of an accessory ossicle versus chronic fracture fragment. IMPRESSION: Demineralized appearance of the bones. No acute fracture or dislocation. ACT 112: Negative or not required by law. The above report was generated using voice recognition software. It may contain grammatical, syntax o r spelling errors. Electronically signed by: Earle Rankin M.D. 11/11/2021 9:30 AM
[2021-11-11] MEDS: HEPARIN SOD 5,000 UNIT/0.5 ML VIAL SQ SCH ×2 (09:57→20:57)
[2021-11-11] MEDS: PANTOprazole 40 MG TAB PO SCH ×2 (09:57→20:56)
[2021-11-11] MEDS: LOSARTAN POTASSIUM 50 MG TAB PO SCH (09:57)
[2021-11-11] MEDS: ROSUVASTATIN CALCIUM 20 MG TAB PO SCH (09:57)
[2021-11-11] MEDS: carvediloL 12.5 MG TAB PO SCH ×2 (09:57→20:55)
[2021-11-11] MEDS: ASPIRIN 81 MG ECTAB PO SCH (09:57)
[2021-11-11] MEDS: FERROUS SULFATE 325 MG TAB PO SCH ×3 (09:57→20:55)
[2021-11-11] MEDS: SULFAMETHOXAZOLE/TRIMETHOPRIM DS 800/160MG TAB PO SCH (09:57)
[2021-11-11] MEDS: NICOTINE 7 MG/24 HR TDSY TD SCH (10:20)
[2021-11-11] MEDS: MoRPHine SULFATE 2 MG/ML CARP IV PRN (10:20)
--- NOTE | 2021-11-11 10:55 | Consultation Report ---
DATE OF SERVICE: 11/11/2021 HISTORY OF PRESENT ILLNESS: Yoselin is 66 years old. She is admitted to the hospital because of dry roger grene of her right foot. She also has inability to straighten her right knee. She reports that her knee has been this way for about 1 week. About 1 week ago, she reports that she fell. Details are v lavinia. She reports that she has fallen before. She indicates that she was able to walk after she fel l most recently. Pain is in the right knee. There is no prior knee problems. PHYSICAL EXAMINATION: She has dry gangrene of most of her right foot. Pedal pulses are not palpable . She has intact sensation down to the level of her ankle. Dr. Baker has recommended a below-knee amputation, which she has declined to do. There is tenderness mostly above the kneecap on the right knee, but also on the medial, lateral, and anterior aspects of the knee. The tib-fib and femur do no t appear to be tender. Rotation of the hip does not elicit hip discomfort. The leg is not swollen. The knee is not red, it is not bruised or warm. I cannot detect an effusion. She holds the knee in a hyperflexed position. Maximal flexion. With some assistance, I can get her out to perhaps 80 deg [place] of knee flexion. There is a strong hamstring pull to flex the knee voluntarily or involuntarily . Posterior drawer appears to be intact, but I cannot assess any other ligaments. Palpation of the knee causes her to reflexively draw the knee back up into hyperflexion and hold it there. Therefore, her motion regarding her hip 0/80/140. There are no relevant imaging studies to review. IMPRESSION: Daniela is 66 years old. She has a necrotic right foot secondary to vascular ischemia an d pain with contracture of the right knee. PLAN: The etiology of her knee flexion is not clear. An unusual response to injury. It is possible that she could have a fracture involving the hip or knee area. Imaging will be difficult, but I ramírez l go ahead and order x-rays of the hip, femur, tibia, and a CT scan of the knee. Something like a di splaced bucket-handle tear of the meniscus could limit extension, but typically there is knee effusio n, joint line pain and a greater ability to extend the knee. We will follow up when the imaging stud ies are completed. Job ID: [id number]
--- NOTE | 2021-11-11 11:14 | Surgery Progress Note ---
Date of Service November 11, 2021 Assessment & Plan (1) Gangrene of toe of right foot: Plan: Await input from ortho as far as functionality of right knee joint. May require a right AKA if joint not good enough for a below the knee prosthesis. Will plan on amputation next week. Admission and Anticipated Discharge Date Admission Date: November 08, 2021 Subjective Patient more agreeable to amputation. No other changes. Physical Exam Physical Exam: No changes in foot Results & Data ([facility]) Vital Signs (Past 12 Hours) Vital Signs Temp Pulse Resp BP Pulse Ox 11/11/21 07:40 36.5 C 68 16 163/80 H 93
[2021-11-11] MEDS: ACETAMINOPHEN 325 MG TAB PO PRN (12:21)
[2021-11-11] MEDS ORDERED: BACLOFEN 10 MG TAB PO ONE (12:39)
[2021-11-11] MEDS: DICLOFENAC SOD 1% GEL 100 GM TUBE EXT SCH ×2 (16:28→20:55)
[2021-11-11] MEDS ORDERED: ALBUTEROL HFA 8 GM INHALER INH PRN (19:10)
[2021-11-11] MEDS ORDERED: SULFAMETHOXAZOLE/TRIMETHOPRIM DS 800/160MG TAB PO ONE (21:00)
[2021-11-12] MEDS: PIPERACILLIN/TAZOBACTAM 3.375 GM in DEXTROSE 5% 100 ML IV SCH ×3 (03:24→20:54)
[2021-11-12] MEDS: MoRPHine SULFATE 2 MG/ML CARP IV PRN (05:01)
[2021-11-12] MEDS: ACETAMINOPHEN 325 MG TAB PO PRN ×4 (05:57→20:52)
[2021-11-12] MEDS: FERROUS SULFATE 325 MG TAB PO SCH ×3 (09:05→20:51)
[2021-11-12] MEDS: CLOPIDOGREL BISULFATE 75 MG TAB PO SCH (09:05)
[2021-11-12] MEDS: carvediloL 12.5 MG TAB PO SCH ×2 (09:05→20:51)
[2021-11-12] MEDS: DICLOFENAC SOD 1% GEL 100 GM TUBE EXT SCH ×4 (09:05→20:52)
[2021-11-12] MEDS: ASPIRIN 81 MG ECTAB PO SCH (09:05)
[2021-11-12] MEDS: LOSARTAN POTASSIUM 50 MG TAB PO SCH (09:06)
[2021-11-12] MEDS: HEPARIN SOD 5,000 UNIT/0.5 ML VIAL SQ SCH ×2 (09:06→20:51)
[2021-11-12] MEDS: NICOTINE 7 MG/24 HR TDSY TD SCH (09:06)
[2021-11-12] MEDS: PANTOprazole 40 MG TAB PO SCH ×2 (09:07→20:51)
[2021-11-12] MEDS: ROSUVASTATIN CALCIUM 20 MG TAB PO SCH (09:07)
--- NOTE | 2021-11-12 09:48 | Hospitalist Progress Note ---
Date of Service November 12, 2021 Assessment & Plan (1) Gangrene of toe of right foot: Plan: 66 year old female PmHx PAD, HLD, COPD, current smoker, HTN, CVA, and chronic wound of the right foot admitted for worsening of infection of right foot and development of gangrene. Gangrene of right foot: - Hx R lower extremity ulcers and osteo w/ current treatment with Bactrim. Extensive PAD history. - Arterial doppler showing findings compatible w/ critical stenosis. - Vascular surgery consulted and following - Extensive gangrene, not a candidate for bypass at this time. Recommend amputation. - Awaiting ortho input on right knee functionality to determine AKA vs BKA this week - Continue Plavix - Continue Zosyn 3.375 mg q8h - Bactrim completed 11/11 - Tramadol and tylenol PRN for pain Right knee pain: - Knee pain with contracture, orthopedics consulted and following - CT R knee: no acute fracture, effusion. Severe osteopenia, mild osteoarthritis. - XR R Tibia/Fibula: No acute fracture. - XR Hip/Pelvis: No acute bony abnormalities. - Minimal improvement with Baclofen 10mg PO - Continue Diclofenac topical QID. Tobacco abuse: - Long smoking history, most likely contributor to patients vascular disease. - Continue nicotine patch Hypoxia with Dyspnea: -Patient not usually on O2 at baseline. Currently 2L oxymask -Extensive history of smoking and atherosclerotic disease -CTA negative, Doppler US RLE negative for DVT. -Continue O2 as needed for O2 sat 88 and above. -Check spirometry Carotid artery disease: - History of left total occlusion s/p endarterectomy - On heparin SQ - Continue rosuvastatin, losartan, aspirin HTN: - Continue home losartan HLD: - Continue home rosuvastatin Hx of Anemia: - Hgb 9.6 on admission - 11/12 Hgb 10.0 - Trend CBC Dispo: Med/Surg DVT Prophylaxis: Heparin SQ Code Status: Full Code Diet: Low-sodium (2) Carotid artery disease: (3) Tobacco abuse: (4) PAD (peripheral artery disease): Admission and Anticipated Discharge Date Admission Date: November 08, 2021 Supervising Physician Co-Signing Physician Notes Resident Physician Supervision Note: I independently interviewed and examined the patient and verified the finney history and physical, reviewed labs and image studies and agree with resident Dr. Davenport findings and care plan. Subjective No acute events overnight. Reports some pain at R foot and R knee but improved from day prior, about 5/10 severity. Denies acute concerns or complaints, more agreeable to surgical treatment. Review of Systems Review of Systems: Per subjective Physical Exam Constitutional: WD/WN, vitals as above + cachectic Respiratory: normal respiratory effort; no respiratory distress Auscultation: + crackles Cardiovascular: RRR, no murmur, no edema Vessels: + posterior tibial pulses abnormal and + dorsalis pedis pulses abnormal Extremities: + abnormal capillary refill (Capillary refill of L foot > 2s) Gastrointestinal (Abdomen): Inspection/Auscultation: abdomen normal to inspection; abdomen not distended Percussion/Palpation: abdomen soft; abdomen nontender Musculoskeletal: no cyanosis or clubbing, extremities motor strength 5/5 Knee: no effusion and no skin erythema Knee held in flexed position with reduced active and passive extension during ROM testing Skin: Gangrenous necrosis of R toes and dorsal/plantar aspects of R foot Neurologic: CN's II-XI intact bilaterally and moves all extremities No sensation to light or deep touch of the right foot along areas of gangrene Results & Data Results & Data ([facility]) Vital Signs (Past 12 Hours) Vital Signs Temp Pulse Resp BP Pulse Ox 11/12/21 07:07 36.6 C 73 16 175/66 H 94 11/11/21 22:41 36.3 C L 75 18 116/63 93 Resident Activity Tracking Resident Involvement: Resident Care Provided Care Provided: Adult Hospital Medicine (1) Carotid artery disease Carotid artery disease type: stenosis Laterality: bilateral Qualified Code(s): I65.23 - Occlusion and stenosis of bilateral carotid arteries
[2021-11-12 10:58] LABS: Basophils # (auto) 0.04 K/uL (0-0.2); Basophils % (auto) 0.4 %; Eosinophils # (auto) 0.09 K/uL (0-0.5); Eosinophils % (auto) 0.9 %; Hematocrit (blood only) 32.1 % (37-47); Immature Granulocytes # (auto) 0.02 K/uL (0.00-0.02); Immature Granulocytes % (auto) 0.2 %; Lymphocytes % (auto) 7.6 %; Mean Corpuscular Hemoglobin 27.2 pg (25-34); Mean Corpuscular Hgb Conc 31.2 g/dL (32-36); Mean Corpuscular Volume 87.5 fL (80-100); Mean Platelet Volume 8.5 fL (7.4-10.4); Monocytes # (auto) 0.85 K/uL (0.11-0.59); Monocytes % (auto) 8.1 %; Neutrophils # (auto) 8.75 K/uL (1.4-6.5); Neutrophils % (auto) 82.8 %; Platelet Count 430 K/uL (130-400); RDW Coefficient of Variation 15.5 % (11.5-14.5); Red Blood Count 3.67 M/uL (4.2-5.4); White Blood Count 10.55 K/uL (4.8-10.8)
[2021-11-12 11:27] LABS: BUN Creatinine Ratio 18.4 (10-20); Calcium 8.9 mg/dl (8.5-10.1); Creatinine Clr Calc Pharmacy 56.3 ml/min; Est GFR (African American) 96.1 ml/min; Est GFR (Non-African American) 82.9 ml/min
[2021-11-12] MEDS: traMADol HCL 50 MG TABLET PO PRN ×3 (12:03→23:33)
--- NOTE | 2021-11-12 17:23 | Progress Notes ---
DATE OF SERVICE: 11/12/2021. The patient is in her bed. She reports that her knee feels somewhat better. It sounds like she got some tramadol or Tylenol. She has also been getting the baclofen and something has made some improve ment. She is not noting any right hip pain today. She is able to straighten her knee to about 90 de grees on her own, but not much more than that. Her leg and thigh are nontender. She has tenderness along the anteromedial and anterolateral aspects of her knee, her patella and then above the patella. There are 3 small eschars very superficial. There is no erythema or increased warmth. There is no effusion, induration, or swelling noted. Beyond that, it is difficult to do any kind of exam in ter ms of ligaments. I do not detect any intraarticular effusion. I tried to get her to lie flat on her stomach to see if her hip would extend; however, she was not able to do that. Movement of the hip d oes not elicit any discomfort. It might cause discomfort in her knee. There is no swelling of the r ight hip area and there is no tenderness to palpation. The etiology of her knee pain and her flexion position is not clear. It is possible that perhaps meghan ething could be going on with the hip or pelvis that is causing referred pain. I reviewed the CT sca n again and there is nothing in terms of arthritis or swelling in the knee. One consideration is to consider a cortisone injection into the knee joint. I do not see anything clinically that looks like gout or pseudogout in terms of having redness, pain and swelling. She does not have a history of go ut. We will get a CT scan of her pelvis for further evaluation. I have asked her to continue to wor k on knee movement. Job ID: [id number]
--- NOTE | 2021-11-12 22:20 | CT Scan Report ---
CT pelvis wo con CLINICAL HISTORY: Hip pain and knee pain COMPARISON STUDY: CT of the abdomen and pelvis from 01/22/2021 and standard radiographs from 2 CT DOSE: 272.66 mGy.cm TECHNIQUE: Standard CT of the pelvis is performed without IV contrast. Multiplanar reconstruction is performed. A dose lowering technique was utilized adhering to the principles of ALARA. FINDINGS: Bones: The bones are osteopenic. There is no evidence for an acute fracture or dislocation. There are no lytic or blastic lesions. Joints: Right hip is flexed. The left hip joint space is maintained. The bones are in anatomic align ment. Soft tissues: There is no focal soft tissue swelling. There are no focal fluid collections. Within the abdomen, there is evidence for mild fecal stasis without obstruction, sigmoid diverticulos is without evidence for diverticulitis, distention of the urinary bladder and extensive atherosclerot ic calcification of the aorta and its branches. IMPRESSION: Osteopenia with no acute osseous pathology. Flexion at the right hip joint. ACT 112: Negative or not required by law. Electronically signed by: Henry Duvall M.D. 11/12/2021 10:18 PM
[2021-11-13] MEDS: ACETAMINOPHEN 325 MG TAB PO PRN ×3 (04:34→22:03)
[2021-11-13] MEDS: PIPERACILLIN/TAZOBACTAM 3.375 GM in DEXTROSE 5% 100 ML IV SCH ×3 (04:35→19:54)
[2021-11-13] MEDS: traMADol HCL 50 MG TABLET PO PRN ×3 (07:10→20:59)
[2021-11-13 07:31] LABS: Hematocrit (blood only) 30.8 % (37-47); Hemoglobin 9.7 g/dL (12.0-16.0); Mean Corpuscular Hemoglobin 27.3 pg (25-34); Mean Corpuscular Hgb Conc 31.5 g/dL (32-36); Mean Corpuscular Volume 86.8 fL (80-100); Mean Platelet Volume 8.8 fL (7.4-10.4); Platelet Count 421 K/uL (130-400); RDW Coefficient of Variation 15.5 % (11.5-14.5); Red Blood Count 3.55 M/uL (4.2-5.4); White Blood Count 7.94 K/uL (4.8-10.8)
[2021-11-13 07:55] LABS: BUN Creatinine Ratio 22.7 (10-20); Calcium 8.8 mg/dl (8.5-10.1); Creatinine Clr Calc Pharmacy 64.8 ml/min; Est GFR (African American) 108.2 ml/min; Est GFR (Non-African American) 93.4 ml/min; Potassium 4.1 mmol/L (3.5-5.1)
[2021-11-13] MEDS: NICOTINE 7 MG/24 HR TDSY TD SCH (08:35)
[2021-11-13] MEDS: FERROUS SULFATE 325 MG TAB PO SCH ×3 (08:41→19:55)
[2021-11-13] MEDS: ASPIRIN 81 MG ECTAB PO SCH (08:41)
[2021-11-13] MEDS: carvediloL 12.5 MG TAB PO SCH ×2 (08:41→19:55)
[2021-11-13] MEDS: DICLOFENAC SOD 1% GEL 100 GM TUBE EXT SCH ×4 (08:41→19:56)
[2021-11-13] MEDS: CLOPIDOGREL BISULFATE 75 MG TAB PO SCH (08:41)
[2021-11-13] MEDS: LOSARTAN POTASSIUM 50 MG TAB PO SCH (08:42)
[2021-11-13] MEDS: PANTOprazole 40 MG TAB PO SCH ×2 (08:42→19:55)
[2021-11-13] MEDS: ROSUVASTATIN CALCIUM 20 MG TAB PO SCH (08:42)
[2021-11-13] MEDS: HEPARIN SOD 5,000 UNIT/0.5 ML VIAL SQ SCH ×2 (08:42→19:55)
[2021-11-13] MEDS ORDERED: POLYETHYLENE (MIRALAX) 17 GM PACK PO PRN (10:09)
--- NOTE | 2021-11-13 12:14 | Hospitalist Progress Note ---
Date of Service November 13, 2021 Assessment & Plan (1) Gangrene of toe of right foot: Plan: 66 year old female PmHx PAD, HLD, COPD, current smoker, HTN, CVA, and chronic wound of the right foot admitted for worsening of infection of right foot and development of gangrene. Gangrene of right foot: - Hx R lower extremity ulcers and osteo w/ current treatment with Bactrim. Extensive PAD history. - Arterial doppler showing findings compatible w/ critical stenosis. - Vascular surgery consulted and following - Extensive gangrene, not a candidate for bypass at this time. Recommend amputation. - Awaiting ortho input on right knee functionality to determine AKA vs BKA this week - Continue Plavix - Continue Zosyn 3.375 mg q8h - Bactrim completed 11/11 - Tramadol and tylenol PRN for pain Right knee pain: - Knee pain with contracture, orthopedics consulted and following - CT R knee: no acute fracture, effusion. Severe osteopenia, mild osteoarthritis. - XR R Tibia/Fibula: No acute fracture. - XR Hip/Pelvis: No acute bony abnormalities. - 11/13- ordered CT pelvis to evaluate for possible source of referred pain to knee. Recommended corticosteroid injection for pain if current pain regimen insufficient - Minimal improvement with Baclofen - Better pain with Diclofenac topical QID. Hypoxia COPD: -Patient not usually on O2 at baseline. Currently 1L NC -Extensive history of smoking and atherosclerotic disease -CTA negative, Doppler US RLE negative for DVT. -CT chest with moderate emphysema and extensive secretion in airway -Spirometry 11/12- FEV1 0.86, FEV1/FVC 0.57. Meets GOLD criteria for airflow limitation of Stage 1 COPD -Ordered daily Anoro, albuterol PRN -Continue O2 as needed for O2 saturation 88%+ -Will need diffusion study as outpatient to assess etiology for hypoxia Tobacco abuse: - Long smoking history, most likely contributor to patient's vascular disease. - Continue nicotine patch Carotid artery disease: - History of left total occlusion s/p endarterectomy - On heparin SQ - Continue rosuvastatin, losartan, aspirin HTN: - Continue home losartan HLD: - Continue home rosuvastatin Hx of Anemia: - Hgb 9.6 on admission - 11/13 Hgb 9.7, down from Hgb 10 on 11/12 - Trend CBC Dispo: Med/Surg DVT Prophylaxis: Heparin SQ Code Status: Full Code Diet: Low-sodium (2) Carotid artery disease: (3) Tobacco abuse: (4) PAD (peripheral artery disease): Admission and Anticipated Discharge Date Admission Date: November 08, 2021 Supervising Physician Co-Signing Physician Notes Resident Physician Supervision Note: I independently interviewed and examined the patient and verified the finney history and physical, reviewed labs and image studies and agree with resident Dr. Davenport findings and care plan. Subjective No acute events overnight. Reports continued pain at R foot and R knee but further improved from day prior, about 4/10 severity. Denies acute concerns or complaints, agreeable with surgical treatment. Review of Systems Review of Systems: Per subjective Physical Exam Constitutional: WD/WN, vitals as above + cachectic Respiratory: normal respiratory effort; no respiratory distress Auscultation: + crackles (coarse breath sounds b/l bases with mild upper expiratory wheezes) Cardiovascular: RRR, no murmur, no edema Vessels: + posterior tibial pulses abnormal and + dorsalis pedis pulses abnormal Extremities: + abnormal capillary refill (Capillary refill of L foot > 2s) Gastrointestinal (Abdomen): Inspection/Auscultation: abdomen normal to inspection; abdomen not distended Percussion/Palpation: abdomen soft; abdomen nontender Musculoskeletal: no cyanosis or clubbing, extremities motor strength 5/5 Knee: no effusion and no skin erythema Knee held in flexed position with reduced active and passive extension during ROM testing Skin: Gangrenous necrosis of R toes and dorsal/plantar aspects of R foot Neurologic: No sensation to light or deep touch of the right foot along areas of gangrene Results & Data Results & Data ([facility]) Vital Signs (Past 12 Hours) Vital Signs Temp Pulse Resp BP Pulse Ox 11/13/21 11:59 75 16 94 11/13/21 07:02 36.6 C 69 16 146/64 H 93 Resident Activity Tracking Resident Involvement: Resident Care Provided Care Provided: Adult Hospital Medicine (1) Carotid artery disease Carotid artery disease type: stenosis Laterality: bilateral Qualified Code(s): I65.23 - Occlusion and stenosis of bilateral carotid arteries
[2021-11-13] MEDS: UMECLIDINIUM/VILANTEROL 62.5/25MCG 7 PUFFS/INHALER INH SCH (12:24)
[2021-11-13] MEDS ORDERED: methylPREDNISolone acetate 40 MG/ML VIAL INJ ONE (12:32)
[2021-11-13] MEDS ORDERED: LIDOCAINE 1% LOCAL 20 ML VIAL INJ ONE (12:32)
[2021-11-13] MEDS ORDERED: ALBUT/IPRATROP 3MG/0.5MG NEB 3 ML VIAL NEB STA (13:00)
[2021-11-13] MEDS ORDERED: guaiFENesin/DEXTROM SYRUP 100MG/10MG 5ML UDC PO ONE (13:00)
--- NOTE | 2021-11-13 13:31 | Progress Notes ---
DATE OF SERVICE: 11/13/2021 Yoselin is sitting upright, eating lunch. She is sitting with her knee fairly comfortably positioned at 90 degrees. She is reporting no significant changes in her knee. On exam today, she does have a couple superficial eschars which are a little bit inflamed. There is a scratch on the knee, which is slightly inflamed. There is a trace bit of erythema just above the p atella. There is diffuse tenderness about the front of the knee, suprapatellar pouch, medial and lat eral area and patella. There is no induration or effusion noted. The CT scan of the pelvis showed no evidence of fracture or masses. The report was noted. There was no effusion within the hip joint that could be detected. I offered Yoselin a cortisone injection into her right knee to see if this can help alleviate some of her knee pain. If she has a more functional knee, they may be able to do a below-knee amputation versus above-knee. Preprocedural timeout, verbal informed consent, treatment options, risks, benefits, verbal consent ti me-out nurse witnessed. The right knee was injected through an anteromedial approach using 40 mg of Depo-Medrol and 3 mL of 1% plain lidocaine. We will continue to monitor. Continue PT/OT. Probably not a good candidate for NSAIDs; however, dep ending on what happens with the injection, may or may not consider some steroids systemically. Job ID: [id number]
--- NOTE | 2021-11-13 14:18 | XRay Report ---
XR chest 1V portable CLINICAL HISTORY: Increased oxygen requirement. COMPARISON STUDY: 11/10/2021 TECHNIQUE: 1 view of the chest FINDINGS: Single frontal view of the chest demonstrates the cardiomediastinal silhouette to be within normal li mits. The lungs are clear of alveolar opacities. There is no evidence for pleural effusion. There is no evidence for vascular congestion. There is no acute osseous pathology. IMPRESSION: No acute cardiopulmonary disease. ACT 112: Negative or not required by law. Electronically signed by: Henry Duvall M.D. 11/13/2021 2:17 PM
[2021-11-14] MEDS: PIPERACILLIN/TAZOBACTAM 3.375 GM in DEXTROSE 5% 100 ML IV SCH ×3 (04:44→20:56)
[2021-11-14] MEDS: traMADol HCL 50 MG TABLET PO PRN (04:49)
[2021-11-14 05:45] LABS: Hematocrit (blood only) 31.1 % (37-47); Hemoglobin 9.8 g/dL (12.0-16.0); Mean Corpuscular Hemoglobin 27.4 pg (25-34); Mean Corpuscular Hgb Conc 31.5 g/dL (32-36); Mean Corpuscular Volume 86.9 fL (80-100); Mean Platelet Volume 8.2 fL (7.4-10.4); Platelet Count 437 K/uL (130-400); RDW Coefficient of Variation 15.5 % (11.5-14.5); RDW Standard Deviation 50.2 fL (36.4-46.3); Red Blood Count 3.58 M/uL (4.2-5.4); White Blood Count 9.99 K/uL (4.8-10.8)
[2021-11-14 06:10] LABS: Creatinine Clr Calc Pharmacy 76.4 ml/min; Est GFR (African American) 114.2 ml/min; Est GFR (Non-African American) 98.5 ml/min; Potassium 4.5 mmol/L (3.5-5.1)
[2021-11-14] MEDS: FERROUS SULFATE 325 MG TAB PO SCH ×3 (08:10→20:58)
[2021-11-14] MEDS: ASPIRIN 81 MG ECTAB PO SCH (08:10)
[2021-11-14] MEDS: NICOTINE 7 MG/24 HR TDSY TD SCH (08:10)
[2021-11-14] MEDS: PANTOprazole 40 MG TAB PO SCH ×2 (08:11→20:57)
[2021-11-14] MEDS: LOSARTAN POTASSIUM 50 MG TAB PO SCH (08:11)
[2021-11-14] MEDS: carvediloL 12.5 MG TAB PO SCH ×2 (08:11→20:58)
[2021-11-14] MEDS: CLOPIDOGREL BISULFATE 75 MG TAB PO SCH (08:11)
[2021-11-14] MEDS: DICLOFENAC SOD 1% GEL 100 GM TUBE EXT SCH ×4 (08:12→20:58)
[2021-11-14] MEDS: ROSUVASTATIN CALCIUM 20 MG TAB PO SCH (08:12)
[2021-11-14] MEDS: HEPARIN SOD 5,000 UNIT/0.5 ML VIAL SQ SCH ×2 (08:13→20:56)
[2021-11-14] MEDS: UMECLIDINIUM/VILANTEROL 62.5/25MCG 7 PUFFS/INHALER INH SCH (08:13)
[2021-11-14] MEDS: ACETAMINOPHEN 325 MG TAB PO PRN (08:14)
[2021-11-14] MEDS ORDERED: traMADol HCL 50 MG TABLET PO STA (11:59)
[2021-11-14] MEDS: ACETAMINOPHEN 325 MG TAB PO SCH ×2 (13:16→21:00)
--- NOTE | 2021-11-14 13:28 | Hospitalist Progress Note ---
Date of Service November 14, 2021 Assessment & Plan (1) Gangrene of toe of right foot: Plan: 66 year old female PmHx PAD, HLD, COPD, current smoker, HTN, CVA, and chronic wound of the right foot admitted for worsening of infection of right foot and development of gangrene. Gangrene of right foot: Hx R lower extremity ulcers and osteo w/ current treatment with Bactrim. Extensive PAD history. Arterial doppler showing findings compatible w/ critical stenosis. s/p Bactrim completed 11/11. - Vascular surgery consulted and following - Extensive gangrene, not a candidate for bypass at this time. Recommend amputation. - Awaiting ortho input on right knee functionality to determine AKA vs BKA this week -Ortho Consulted -Trial of CS injection -Knee function will help guide decision regarding AKA vs BKA - Continue Plavix - Continue Zosyn 3.375 mg q8h - Trend CBC - Tramadol and tylenol PRN for pain Right knee pain: - Knee pain with contracture - CT R knee: no acute fracture, effusion. Severe osteopenia, mild osteoarthritis. - XR R Tibia/Fibula: No acute fracture. - XR Hip/Pelvis: No acute bony abnormalities. - CT pelvis Negative -Orthopedics consulted and following -Trial of corticosteroid injection - Minimal improvement with Baclofen - Continue Diclofenac topical QID. Hypoxia with dyspnea, COPD (new diagnosis): Extensive history of smoking and atherosclerotic disease. CTA negative, Doppler US RLE negative for DVT. Spirometry 11/12- FEV1 0.86, FEV1/FVC 0.57. Meets GOLD criteria for airflow limitation of Stage 1 COPD. -Patient not usually on O2 at baseline. Currently 1L NC -Continue O2 as needed for O2 saturation 88%+ -Started on daily Anoro, albuterol PRN -tolerating well -Will obtain CXR if desaturation/respiratory distress/O2 requirement increases Tobacco abuse: - Long smoking history, most likely contributor to patient's vascular disease. - Continue nicotine patch Carotid artery disease: - History of left total occlusion s/p endarterectomy - On heparin SQ - Continue rosuvastatin, losartan, aspirin HTN: - Continue home losartan HLD: - Continue home rosuvastatin Hx of Anemia: - Hgb 9.6 on admission - 11/13 Hgb 9.7, down from Hgb 10 on 11/12 - Trend CBC Dispo: Med/Surg DVT Prophylaxis: Heparin SQ Code Status: Full Code Diet: Low-sodium (2) Carotid artery disease: (3) Tobacco abuse: (4) PAD (peripheral artery disease): Admission and Anticipated Discharge Date Admission Date: November 08, 2021 Supervising Physician Co-Signing Physician Notes I personally examined the patient and verified all finney points of history and exam, discussed case, and agree with decision making with Dr Mireles knee injection "moved the pain down" - notes after injection less knee pain but ongoing foot pain. currently notes pain meds helping enough but could use a dose now. no other new complaints. ent consultant input appreciated vitals noted nad heent nc at mmm breathing unlabored no accessory muscles good effort. no tracking erythema or crepitis R calf. R knee / leg with contractures - straightening able to be done wiht some difficulty but also notes increase in knee pain with straightening gangrenous foot - fortunately infection not progressing up leg by exam/etc - unfortunately does appear to require amputation - hard to tell functional status for AKA vs BKA - ent consultant input appreciated. continue zosyn for now at least pending amputation otherwise as above Subjective Patient sitting up in bed this morning in no acute distress. Patient reported no acute events overnight. Patient reported no significant improvement in her joint pain status post corticosteroid injection. She is tolerating a diet, moving her bowels, voiding, slept well overnight. Patient has no acute complaints, acute concerns related to planned amputation and decision regarding AKA versus BKA Physical Exam Physical Exam: General: Sitting upright in no acute distress Cardiac: Regular rate and rhythm I do not appreciate any significant murmurs rubs or gallops nl S1 & S2 did not appreciate significant pedal edema. Respiratory: Clear to auscultation bilaterally coarse breath sounds at the bases with some expiratory wheezes GI: Soft, nontender, nondistended MSK: Still unable to straighten her knee Skin: Gangrenous necrosis of the right toe and dorsal and plantar aspects of the right foot Results & Data Results & Data ([facility]) Vital Signs (Past 12 Hours) Vital Signs Temp Pulse Resp BP Pulse Ox 11/14/21 07:08 36.7 C 78 18 168/69 H 98 Laboratory Results 11/14/21 11/14/21 Range/Units 05:31 05:31 WBC 9.99 (4.8-10.8) K/uL RBC 3.58 L (4.2-5.4) M/uL Hgb 9.8 L (12.0-16.0) g/dL Hct 31.1 L (37-47) % MCV 86.9 (80-100) fL MCH 27.4 (25-34) pg MCHC 31.5 L (32-36) g/dL RDW Std Deviation 50.2 H (36.4-46.3) fL RDW Coeff of Odette 15.5 H (11.5-14.5) % Plt Count 437 H (130-400) K/uL MPV 8.2 (7.4-10.4) fL Sodium 126 L (136-145) mmol/L Potassium 4.5 (3.5-5.1) mmol/L Chloride 94 L (98-107) mmol/L Carbon Dioxide 27 (21-32) mmol/L Anion Gap 5 (3-11) BUN 14 (6-23) mg/dl Creatinine 0.56 L (0.6-1.2) mg/dl Est Cr Clr Drug Dosing 76.4 ml/min Est GFR ( Amer) 114.2 ml/min Est GFR (Non-Af Amer) 98.5 ml/min BUN/Creatinine Ratio 25.0 H (10-20) Glucose 113 H (70-99(Fasting)) mg/dl Calcium 9.0 (8.5-10.1) mg/dl Medications Administered Current Inpatient Medications Acetaminophen (Acetaminophen 325 Mg Tab) 650 mg PO TID [facility] Stop: 12/14/21 13:59 Last Admin: 11/14/21 13:16 Dose: 650 mg Documented by: Albuterol (Albuterol Hfa 8 Gm Inhaler) 2 puffs INH BID PRN PRN Reason: Wheezing Stop: 12/11/21 20:59 Aspirin (Aspirin 81 Mg Ectab) [facility] Stop: 12/09/21 08:59 Last Admin: 11/14/21 08:10 Dose: 81 mg Documented by: Carvedilol (Carvedilol 12.5 Mg Tab) 12.5 mg PO BID [facility] Stop: 12/08/21 20:59 Last Admin: 11/14/21 08:11 Dose: 12.5 mg Documented by: Clopidogrel Bisulfate (Clopidogrel Bisulfate 75 Mg Tab) [facility] [place] Stop: 12/12/21 08:59 Last Admin: 11/14/21 08:11 Dose: 75 mg Documented by: Diclofenac Sodium (Diclofenac Sod 1% Gel 100 Gm Tube) 4 gm EXT QID [facility] Stop: 12/11/21 16:59 Last Admin: 11/14/21 12:35 Dose: 4 gm Documented by: Ferrous Sulfate (Ferrous Sulfate 325 Mg Tab) 325 mg PO TID [facility] Stop: 12/08/21 20:59 Last Admin: 11/14/21 13:16 Dose: 325 mg Documented by: Heparin Sodium (Porcine) (Heparin Sod 5,000 Unit/0.5 Ml Vial) 5,000 units SQ Q12 [facility] Stop: 12/08/21 20:59 Last Admin: 11/14/21 08:13 Dose: 5,000 units Documented by: Piperacillin Sod/Tazobactam (Sod 3.375 gm/ Dextrose) 115 mls @ 28.75 mls/hr IV Q8H [facility]; Protocol Stop: 11/21/21 19:59 Last Admin: 11/14/21 12:35 Dose: 28.8 mls/hr Documented by: Losartan Potassium (Losartan Potassium 50 Mg Tab) [address] [facility] Stop: 12/09/21 08:59 Last Admin: 11/14/21 08:11 Dose: 50 mg Documented by: Miscellaneous (Remove Nicoderm Patch) 1 ea N/A DAILY@0859 [facility] Stop: 12/11/21 08:58 Last Admin: 11/14/21 08:12 Dose: 1 ea Documented by: Miscellaneous Information (Piperacill/Tazobac Consult Active) 1 ea N/A UD PRN PRN Reason: Consult Stop: 12/08/21 18:12 Morphine Sulfate (Morphine Sulfate 2 Mg/Ml Carp) 2 mg IV Q6 PRN PRN Reason: severe pain not controlled by other means Stop: 11/22/21 17:13 Last Admin: 11/12/21 05:01 Dose: 2 mg Documented by: Nicotine (Nicotine 7 Mg/24 Hr Tdsy) 7 mg TD [facility] Stop: 12/11/21 08:59 Last Admin: 11/14/21 08:10 Dose: 7 mg Documented by: Pantoprazole Sodium (Pantoprazole 40 Mg Tab) 40 mg PO BID [facility] Stop: 12/08/21 20:59 Last Admin: 11/14/21 08:11 Dose: 40 mg Documented by: Polyethylene Glycol (Polyethylene (Miralax) 17 Gm Pack) 17 gm PO DAILY PRN PRN Reason: Constipation Stop: 12/13/21 10:08 Last Admin: 11/13/21 10:26 Dose: 17 gm Documented by: Rosuvastatin Calcium (Rosuvastatin Calcium 20 Mg Tab) 20 mg PO QAM [facility] Stop: 12/09/21 08:59 Last Admin: 11/14/21 08:12 Dose: 20 mg Documented by: Tramadol HCl (Tramadol Hcl 50 Mg Tablet) 50 mg PO Q6H PRN PRN Reason: pain Stop: 12/08/21 18:12 Last Admin: 11/14/21 04:49 Dose: 50 mg Documented by: Umeclidinium/Vilanterol (Umeclidinium/Vilanterol 62.5/25mcg 7 Puffs/Inhaler) 1 puffs INH DAILY [facility] Stop: 12/13/21 11:14 Last Admin: 11/14/21 08:13 Dose: 1 puffs Documented by: (1) Carotid artery disease Carotid artery disease type: stenosis Laterality: bilateral Qualified Code(s): I65.23 - Occlusion and stenosis of bilateral carotid arteries
--- NOTE | 2021-11-14 13:35 | Billing Data ---
Date of Service November 14, 2021 Coding Level of Care Code 10970 Subseq Hosp Care Lvl 3
[2021-11-15] MEDS: traMADol HCL 50 MG TABLET PO PRN ×3 (02:24→15:44)
[2021-11-15] MEDS: PIPERACILLIN/TAZOBACTAM 3.375 GM in DEXTROSE 5% 100 ML IV SCH ×3 (05:01→20:05)
--- NOTE | 2021-11-15 07:20 | Hospitalist Progress Note ---
Date of Service November 15, 2021 Assessment & Plan (1) Gangrene of toe of right foot: Plan: 66 year old female PmHx PAD, HLD, COPD, current smoker, HTN, CVA, and chronic wound of the right foot admitted for worsening of infection of right foot and development of gangrene. Gangrene of right foot: Hx R lower extremity ulcers and osteo w/ current treatment with Bactrim. Extensive PAD history. Arterial doppler showing findings compatible w/ critical stenosis. s/p Bactrim completed 11/11. - Vascular surgery consulted and following - Extensive gangrene, not a candidate for bypass at this time. Recommend amputation. - Awaiting ortho input on right knee functionality to determine AKA vs BKA this week -Ortho Consulted -Trial of CS injection -Knee function will help guide decision regarding AKA vs BKA - Able to straighten leg with pain - Continue Plavix - Continue Zosyn 3.375 mg q8h - Trend CBC -WBC:10.55->7.94->9.99->8.49 - Tramadol and tylenol PRN for pain Right knee pain: - Knee pain with contracture - CT R knee: no acute fracture, effusion. Severe osteopenia, mild osteoarthritis. - XR R Tibia/Fibula: No acute fracture. - XR Hip/Pelvis: No acute bony abnormalities. - CT pelvis Negative -Orthopedics consulted and following -Trial of corticosteroid injection - Minimal improvement with Baclofen - Continue Diclofenac topical QID. Hypoxia with dyspnea, COPD (new diagnosis): Extensive history of smoking and atherosclerotic disease. CTA negative, Doppler US RLE negative for DVT. Spirometry 11/12- FEV1 0.86, FEV1/FVC 0.57. Meets GOLD criteria for airflow limitation of Stage 1 COPD. -Patient not usually on O2 at baseline. Currently 1L NC -Continue O2 as needed for O2 saturation 88%+ -Wean as tolerated -Started on daily Anoro, albuterol PRN -tolerating well -Will obtain CXR if desaturation/respiratory distress/O2 requirement increases Tobacco abuse: - Long smoking history, most likely contributor to patient's vascular disease. - Continue nicotine patch Carotid artery disease: - History of left total occlusion s/p endarterectomy - On heparin SQ - Continue rosuvastatin, losartan, aspirin HTN: - Continue home losartan HLD: - Continue home rosuvastatin Hx of Anemia: - Hgb 9.6 on admission - Trend CBC -HGB: stable @ 9.8 Dispo: Med/Surg DVT Prophylaxis: Heparin SQ Code Status: Full Code Diet: Low-sodium (2) Carotid artery disease: (3) Tobacco abuse: (4) PAD (peripheral artery disease): Admission and Anticipated Discharge Date Admission Date: November 08, 2021 Supervising Physician Co-Signing Physician Notes I personally examined the patient and verified all finney points of history and exam, discussed case, and agree with decision making with Dr Mireles less knee pain but still contracted. foot pain tolerable. vitals noted nad heent nc at mmm breathing unlabored no accessory muscles good effort. no tracking erythema or crepitis R calf. R knee / leg with contractures - straightening able to be done with some difficulty and more or less immediately flexes back into contracture. foot black to at least mid foot no tracking erythema gangrenous foot - fortunately infection not progressing up leg by exam/etc - unfortunately does appear to require amputation - contracture makes it unlikely that she'd do well w BKA prosthesis. continue zosyn. otherwise as above Subjective Patient sitting upright in bed this morning in no acute distress. Patient reports tolerating her diet, voiding, stooling. She notes some improvement in her right knee symptoms. Acute concerns related to AKA versus BKA. All questions answered. Denying chest pressure, chest pain, shortness of breath, uncontrolled pain Physical Exam Physical Exam: General: Sitting upright in no acute distress Cardiac: Regular rate and rhythm I do not appreciate any significant murmurs rubs or gallops nl S1 & S2 did not appreciate significant pedal edema. Respiratory: Clear to auscultation bilaterally coarse breath sounds at the bases with some expiratory wheezes GI: Soft, nontender, nondistended MSK: Some improvement in her knee function. Pain with straightening Skin: Gangrenous necrosis of the right toe and dorsal and plantar aspects of the right foot Results & Data Results & Data ([facility]) Vital Signs (Past 12 Hours) Vital Signs Temp Pulse Pulse Resp BP BP Pulse Ox 11/15/21 06:53 36.8 C 72 18 191/68 H 98 11/14/21 21:38 36.4 C L 73 18 156/71 H 94 11/14/21 20:54 71 158/71 H Laboratory Results 01/18/22 Range/Units 07:35 WBC 8.49 (4.8-10.8) K/uL RBC 3.60 L (4.2-5.4) M/uL Hgb 9.8 L (12.0-16.0) g/dL Hct 31.4 L (37-47) % MCV 87.2 (80-100) fL MCH 27.2 (25-34) pg MCHC 31.2 L (32-36) g/dL RDW Std Deviation 50.3 H (36.4-46.3) fL RDW Coeff of Odette 15.6 H (11.5-14.5) % Plt Count 484 H (130-400) K/uL MPV 8.4 (7.4-10.4) fL Immature Gran % (Auto) 0.2 % Neut % (Auto) 77.3 % Lymph % (Auto) 10.8 % Robeson % (Auto) 10.1 % Eos % (Auto) 0.9 % Baso % (Auto) 0.7 % Neut # (Auto) 6.55 H (1.4-6.5) K/uL Lymph # (Auto) 0.92 L (1.2-3.4) K/uL Robeson # (Auto) 0.86 H (0.11-0.59) K/uL Eos # (Auto) 0.08 (0-0.5) K/uL Baso # (Auto) 0.06 (0-0.2) K/uL Immature Gran # (Auto) 0.02 (0.00-0.02) K/uL Medications Administered Current Inpatient Medications Acetaminophen (Acetaminophen 325 Mg Tab) 650 mg PO TID [facility] Stop: 12/14/21 13:59 Last Admin: 11/14/21 21:00 Dose: 650 mg Documented by: Albuterol (Albuterol Hfa 8 Gm Inhaler) 2 puffs INH BID PRN PRN Reason: Wheezing Stop: 12/11/21 20:59 Aspirin (Aspirin 81 Mg Ectab) 81 mg PO QAM [facility] Stop: 12/09/21 08:59 Last Admin: 11/14/21 08:10 Dose: 81 mg Documented by: Carvedilol (Carvedilol 12.5 Mg Tab) 12.5 mg PO BID [facility] Stop: 12/08/21 20:59 Last Admin: 11/15/21 07:38 Dose: 12.5 mg Documented by: Clopidogrel Bisulfate (Clopidogrel Bisulfate 75 Mg Tab) [facility] [place] [place] Stop: 12/12/21 08:59 Last Admin: 11/14/21 08:11 Dose: 75 mg Documented by: Diclofenac Sodium (Diclofenac Sod 1% Gel 100 Gm Tube) 4 gm EXT QID [facility] Stop: 12/11/21 16:59 Last Admin: 11/14/21 20:58 Dose: 4 gm Documented by: Ferrous Sulfate (Ferrous Sulfate 325 Mg Tab) 325 mg PO TID [facility] Stop: 12/08/21 20:59 Last Admin: 11/14/21 20:58 Dose: 325 mg Documented by: Heparin Sodium (Porcine) (Heparin Sod 5,000 Unit/0.5 Ml Vial) 5,000 units SQ Q12 [facility] Stop: 12/08/21 20:59 Last Admin: 11/14/21 20:56 Dose: 5,000 units Documented by: Piperacillin Sod/Tazobactam (Sod 3.375 gm/ Dextrose) 115 mls @ 28.75 mls/hr IV Q8H [facility]; Protocol Stop: 11/21/21 19:59 Last Admin: 11/15/21 05:01 Dose: 28.8 mls/hr Documented by: Losartan Potassium (Losartan Potassium 50 Mg Tab) 50 mg PO [facility] Stop: 12/09/21 08:59 Last Admin: 11/15/21 07:41 Dose: 50 mg Documented by: Miscellaneous (Remove Nicoderm Patch) 1 ea N/A DAILY@0859 [facility] Stop: 12/11/21 08:58 Last Admin: 11/15/21 07:38 Dose: 1 ea Documented by: Miscellaneous Information (Piperacill/Tazobac Consult Active) 1 ea N/A UD PRN PRN Reason: Consult Stop: 12/08/21 18:12 Morphine Sulfate (Morphine Sulfate 2 Mg/Ml Carp) 2 mg IV Q6 PRN PRN Reason: severe pain not controlled by other means Stop: 11/22/21 17:13 Last Admin: 11/12/21 05:01 Dose: 2 mg Documented by: Nicotine (Nicotine 7 Mg/24 Hr Tdsy) 7 mg TD [facility] Stop: 12/11/21 08:59 Last Admin: 11/14/21 08:10 Dose: 7 mg Documented by: Pantoprazole Sodium (Pantoprazole 40 Mg Tab) 40 mg PO BID [facility] Stop: 12/08/21 20:59 Last Admin: 11/14/21 20:57 Dose: 40 mg Documented by: Polyethylene Glycol (Polyethylene (Miralax) 17 Gm Pack) 17 gm PO DAILY PRN PRN Reason: Constipation Stop: 12/13/21 10:08 Last Admin: 11/13/21 10:26 Dose: 17 gm Documented by: Rosuvastatin Calcium (Rosuvastatin Calcium 20 Mg Tab) 20 mg PO QAM [facility] Stop: 12/09/21 08:59 Last Admin: 11/14/21 08:12 Dose: 20 mg Documented by: Tramadol HCl (Tramadol Hcl 50 Mg Tablet) 50 mg PO Q6H PRN PRN Reason: pain Stop: 12/08/21 18:12 Last Admin: 11/15/21 07:39 Dose: 50 mg Documented by: Umeclidinium/Vilanterol (Umeclidinium/Vilanterol 62.5/25mcg 7 Puffs/Inhaler) 1 puffs INH DAILY [facility] Stop: 12/13/21 11:14 Last Admin: 11/14/21 08:13 Dose: 1 puffs Documented by: (1) Carotid artery disease Carotid artery disease type: stenosis Laterality: bilateral Qualified Code(s): I65.23 - Occlusion and stenosis of bilateral carotid arteries
[2021-11-15] MEDS: carvediloL 12.5 MG TAB PO SCH ×2 (07:38→20:17)
[2021-11-15] MEDS: LOSARTAN POTASSIUM 50 MG TAB PO SCH (07:41)
[2021-11-15 08:15] LABS: Basophils # (auto) 0.06 K/uL (0-0.2); Basophils % (auto) 0.7 %; Eosinophils # (auto) 0.08 K/uL (0-0.5); Eosinophils % (auto) 0.9 %; Hematocrit (blood only) 31.4 % (37-47); Hemoglobin 9.8 g/dL (12.0-16.0); Immature Granulocytes # (auto) 0.02 K/uL (0.00-0.02); Immature Granulocytes % (auto) 0.2 %; Lymphocytes # (auto) 0.92 K/uL (1.2-3.4); Lymphocytes % (auto) 10.8 %; Mean Corpuscular Hemoglobin 27.2 pg (25-34); Mean Corpuscular Hgb Conc 31.2 g/dL (32-36); Mean Corpuscular Volume 87.2 fL (80-100); Mean Platelet Volume 8.4 fL (7.4-10.4); Monocytes # (auto) 0.86 K/uL (0.11-0.59); Monocytes % (auto) 10.1 %; Neutrophils # (auto) 6.55 K/uL (1.4-6.5); Neutrophils % (auto) 77.3 %; Platelet Count 484 K/uL (130-400); RDW Coefficient of Variation 15.6 % (11.5-14.5); RDW Standard Deviation 50.3 fL (36.4-46.3); White Blood Count 8.49 K/uL (4.8-10.8)
[2021-11-15] MEDS: ASPIRIN 81 MG ECTAB PO SCH (09:13)
[2021-11-15] MEDS: DICLOFENAC SOD 1% GEL 100 GM TUBE EXT SCH ×4 (09:14→20:18)
[2021-11-15] MEDS: FERROUS SULFATE 325 MG TAB PO SCH ×3 (09:14→20:17)
[2021-11-15] MEDS: CLOPIDOGREL BISULFATE 75 MG TAB PO SCH (09:14)
[2021-11-15] MEDS: HEPARIN SOD 5,000 UNIT/0.5 ML VIAL SQ SCH ×2 (09:15→20:17)
[2021-11-15] MEDS: NICOTINE 7 MG/24 HR TDSY TD SCH (09:15)
[2021-11-15] MEDS: PANTOprazole 40 MG TAB PO SCH ×2 (09:15→20:17)
[2021-11-15] MEDS: ROSUVASTATIN CALCIUM 20 MG TAB PO SCH (09:15)
[2021-11-15] MEDS: UMECLIDINIUM/VILANTEROL 62.5/25MCG 7 PUFFS/INHALER INH SCH (09:16)
[2021-11-15] MEDS: ACETAMINOPHEN 325 MG TAB PO SCH ×3 (09:58→20:18)
--- NOTE | 2021-11-15 14:24 | Communication Note ---
Date of Service: November 15, 2021 Patient still with difficulty straightening right leg. Doubt that she will ever be able to handle a below the knee prosthesis. Discussed an above the knee amputation with her. She is agreeable. I have discussed the risks options and benefits of the procedure with the patient. The patient understands the risks options and benefits and agrees to the procedure. This will be done tomorrow.
--- NOTE | 2021-11-15 14:55 | Progress Notes ---
DATE OF SERVICE: 11/15/2021. The patient reports temporary improvement of her knee discomfort after the injection in her right kne e. She is, however, unable to quantify how long that last or how much pain relief she had. She now reports that she has pain in both the right foot and the right knee. She does not believe that she w as able to move the right knee any better after the injection. Today, actively, she can straighten h er knee out to perhaps -100 and with some assistance I might be able to get her out to -80 degrees sh ort of full extension. There is a fair amount of muscular resistance. The knee looks benign without swelling or redness, but she does have diffuse mild anterior tenderness. At this time, the etiology of her inability to straighten her knee is not clear. Something like an MRI could be considered to see if there are any mechanical obstruction in the knee. I do not know that she would be able to pos ition well for test like that. It appears as though an above-knee amputation is planned for tomorrow . Job ID: [id number]
--- NOTE | 2021-11-15 16:52 | Billing Data ---
Date of Service November 15, 2021 Coding Level of Care Code 87838 Subseq Hosp Care Lvl 3
[2021-11-15] MEDS: MoRPHine SULFATE 2 MG/ML CARP IV PRN (17:12)
--- NOTE | 2021-11-15 18:46 | Anesthesiology Consultation ---
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 Surgery Operation Date: 11/09/21 12:30 Proposed Procedures p Angio Extremity Bilateral - Andrew Dias MD Operation Date: 11/11/21 13:00 Proposed Procedures p Right Below Knee Amputation - Cash Baker MD Operation Date: 11/16/21 12:00 Proposed Procedures p Right Above Knee Amputation - Cash Baker MD Height/Weight Height: 5 ft 2 in Weight: 47.7 kg Allergies Allergy/AdvReac Type Severity Reaction Status Date / Time No Known Allergies Allergy Mild Verified 11/08/21 15:21 Medications Home Medications Medication Instructions Recorded Confirmed Last Taken aspirin 81 mg tablet,delayed 81 mg PO QAM #90 tab 06/22/21 11/08/21 09/12/21 07:00 release carvedilol 12.5 mg tablet (Coreg) 12.5 mg PO BID 07/20/21 11/08/21 09/11/21 20:00 thiamine HCl (vitamin B1) 100 mg 100 mg PO QAM 07/20/21 11/08/21 09/12/21 07:00 tablet losartan 50 mg tablet 50 mg PO QAM 09/08/21 11/08/21 09/12/21 07:00 umeclidinium 62.5 mcg-vilanterol 1 inh INHALATION DAILY PRN 09/08/21 11/08/21 Unknown 25 mcg/actuation powdr for inhalation (Anoro Ellipta) ferrous sulfate 325 mg (65 mg 325 mg PO TID #90 tab 09/13/21 11/08/21 Unknown iron) tablet pantoprazole 40 mg tablet,delayed 40 mg PO BID #60 tab 09/13/21 11/08/21 Unknown release (Protonix) clopidogrel 75 mg tablet 75 mg PO QAM #30 tab 10/14/21 11/08/21 Unknown rosuvastatin 20 mg tablet (Crestor) 20 mg PO QAM #30 tab 10/14/21 11/08/21 Unknown tramadol 50 mg tablet 50 mg PO Q6H PRN #60 tab 10/27/21 11/08/21 Unknown acetaminophen 325 mg tablet 650 mg PO Q4H PRN 11/08/21 11/08/21 Unknown Active Medications Generic Name Dose Route Start Last Admin Trade Name Freq PRN Reason Stop Dose Admin Acetaminophen 650 mg 11/14/21 14:00 11/15/21 13:15 Acetaminophen 325 Mg Tab PO 12/14/21 13:59 650 mg TID ALICIA Administration Aspirin 81 mg 11/09/21 09:00 11/15/21 09:13 Aspirin 81 Mg Ectab PO 12/09/21 08:59 81 mg QAM ALICIA Administration Carvedilol 12.5 mg 11/08/21 21:00 11/15/21 07:38 Carvedilol 12.5 Mg Tab PO 12/08/21 20:59 12.5 mg BID ALICIA Administration Clopidogrel Bisulfate 75 mg 11/12/21 09:00 11/15/21 09:14 Clopidogrel Bisulfate 75 Mg Tab PO 12/12/21 08:59 75 mg QAM ALICIA Administration Diclofenac Sodium 4 gm 11/11/21 17:00 11/15/21 15:44 Diclofenac Sod 1% Gel 100 Gm Tube EXT 12/11/21 16:59 4 gm QID ALICIA Administration Ferrous Sulfate 325 mg 11/08/21 21:00 11/15/21 13:15 Ferrous Sulfate 325 Mg Tab PO 12/08/21 20:59 325 mg TID ALICIA Administration Heparin Sodium (Porcine) 5,000 units 11/08/21 21:00 11/15/21 09:15 Heparin Sod 5,000 Unit/0.5 Ml Vial SQ 12/08/21 20:59 5,000 units Q12 ALICIA Administration Piperacillin Sod/Tazobactam 115 mls @ 28.75 mls/hr 11/08/21 20:00 11/15/21 16:44 Sod 3.375 gm/ Dextrose IV 11/21/21 19:59 Infused Q8H [facility] Infusion Protocol Losartan Potassium 50 mg 11/09/21 09:00 11/15/21 07:41 Losartan Potassium 50 Mg Tab PO 12/09/21 08:59 50 mg QAM [facility] Administration Miscellaneous 1 ea 11/11/21 08:59 11/15/21 07:38 Remove Nicoderm Patch N/A 12/11/21 08:58 1 ea DAILY@0859 [facility] Administration Morphine Sulfate 2 mg 11/08/21 17:14 11/15/21 17:12 Morphine Sulfate 2 Mg/Ml Carp IV 11/22/21 17:13 2 mg Q6 PRN Administration severe pain not controlled by other means Nicotine 7 mg 11/11/21 09:00 11/15/21 09:15 Nicotine 7 Mg/24 Hr Tdsy TD 12/11/21 08:59 7 mg QAM ALICIA Administration Pantoprazole Sodium 40 mg 11/08/21 21:00 11/15/21 09:15 Pantoprazole 40 Mg Tab PO 12/08/21 20:59 40 mg BID ALICIA Administration Polyethylene Glycol 17 gm 11/13/21 10:09 11/13/21 10:26 Polyethylene (Miralax) 17 Gm Pack PO 12/13/21 10:08 17 gm DAILY PRN Administration Constipation Rosuvastatin Calcium 20 mg 11/09/21 09:00 11/15/21 09:15 Rosuvastatin Calcium 20 Mg Tab PO 12/09/21 08:59 20 mg QAM ALICIA Administration Tramadol HCl 50 mg 11/08/21 18:13 11/15/21 15:44 Tramadol Hcl 50 Mg Tablet PO 12/08/21 18:12 50 mg Q6H PRN Administration pain Umeclidinium/Vilanterol 1 puffs 11/13/21 11:15 11/15/21 09:16 Umeclidinium/Vilanterol 62.5/25mcg 7 Puffs/Inhaler INH 12/13/21 11:14 1 puffs DAILY ALICIA Administration NPO Date Last Intake of Fluids: 11/10/21 Time Last Intake of Fluids: 23:59 Date Last Intake of Solids: 11/10/21 Time Last Intake of Solids: 23:59 Past Medical History Medical History Acute CVA (cerebrovascular accident) (~04/2021) Carotid artery disease GERD (gastroesophageal reflux disease) UNDER CONTROL History of CVA (cerebrovascular accident) (04/2021) Hypertension Ischemic ulcer of right foot Follows with Wound Clinic Left renal mass Left side- per 04/15/21 MRI= 1.6 x 1.0 cm or slightly exophytic focus within the lateral aspect of the left kidney.- worrisome for RCC per records- pt will follow up as outpatient. pt unaware PAD (peripheral artery disease) S/p stent to right LE February 2021 with [facility] Bilateral iliac artery stenosis Rectal mass pt unaware. Tobacco abuse Vasculopathy Past Family History Family History Mother , age 70 of lung cancer Diabetes Lung cancer Hypertension Father , age 52 of complications of vascular surgery. Lung cancer PAD (peripheral artery disease) Denies family history of Ovarian cancer Prostate cancer Myocardial infarction Breast cancer Colorectal cancer Past Surgical History Surgical History H/O carotid endarterectomy 30-40 sec chest compressions required during surgery for asystole - possible prior much shorter vagal episode in past as well H/O exploratory laparotomy (01/22/21) Exploratory laparotomy, oversew perforated duodenal ulcer, abdominal washout. Dr. 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 S/P peripheral artery angioplasty with stent placement (01/2021) RLE, iliac stent / SFA angioplasty [place] teeth extracted Social History Smoking Status: Current every day smoker tobacco type: cigarettes Smoking cigarettes per day: 20 per day Do You Dip or Chew Tobacco: No Hx Alcohol Use: Yes Alcohol type: beer alcohol intake frequency: 0-2 drinks per day Hx Substance Use: No substance use type: does not use Physical Exam Vital Signs Last Vital Signs Temp 98.1 F 11/15/21 15:50 Pulse 78 11/15/21 15:50 Resp 18 11/15/21 15:50 BP 151/67 H 11/15/21 15:50 Pulse Ox 93 11/15/21 15:50 Testing Laboratory Results 11/15/21 07:35 11/14/21 05:31 PT 9.8 Seconds (9.0-12.0) 11/08/21 14:40 INR 1.0 (0.9-1.1) 11/08/21 14:40 Blood Type O Negative 11/08/21 18:36 Antibody Screen NEGATIVE 11/08/21 18:36 11/08/21 14:43 Aerobic Blood Culture - Final Blood No growth in Aerobic bottle after 5 days. Anaerobic Blood Culture - Final No growth in Anaerobic bottle after 5 days. 11/08/21 14:40 Aerobic Blood Culture - Final Blood No growth in Aerobic bottle after 5 days. Anaerobic Blood Culture - Final No growth in Anaerobic bottle after 5 days. Laboratory Tests 11/08/21 15:47 SARS-CoV-2, RNA, NAAT NEGATIVE Electrocardiogram Date: 11/08/21 Sinus rhythm with Premature atrial complexes, rate 98 bpm Otherwise normal ECG When compared with ECG of 24-MAY-2021 10:58, Premature atrial complexes are now Present Confirmed by Gregor Brand ([id number]) on 11/09/2021 8:04:18 AM Chest X-Ray Date: 11/13/21 Findings: + NAD Echocardiogram Date: 05/04/21 Normal LV size and systolic function. EF 65-70%. No regional wall motion abnormalities. Moderate concentric LVH. No significant valvular abnormalities visualized. Technically difficult study, enhanced with IV Definity. Similar findings compared to prior study on 03/24/21. Pulmonary Function Test Date: 11/12/21 Severe obstruction.
[2021-11-16] MEDS: traMADol HCL 50 MG TABLET PO PRN ×3 (01:47→22:15)
[2021-11-16] MEDS: PIPERACILLIN/TAZOBACTAM 3.375 GM in DEXTROSE 5% 100 ML IV SCH ×3 (05:02→20:13)
[2021-11-16] MEDS: MoRPHine SULFATE 2 MG/ML CARP IV PRN ×2 (05:02→12:05)
--- NOTE | 2021-11-16 07:10 | Hospitalist Progress Note ---
Date of Service November 16, 2021 Assessment & Plan (1) Gangrene of toe of right foot: Plan: 66 year old female PmHx PAD, HLD, COPD, current smoker, HTN, CVA, and chronic wound of the right foot admitted for worsening of infection of right foot and development of gangrene. Gangrene of right foot: Hx R lower extremity ulcers and osteo w/ current treatment with Bactrim. Extensive PAD history. Arterial doppler showing findings compatible w/ critical stenosis. s/p Bactrim completed 11/11. - Vascular surgery consulted and following - Extensive gangrene, not a candidate for bypass at this time. Recommend amputation. - For AKA today -Ortho Consulted -Trial of CS injection -> no significant iprovement -For AKA today - Able to straighten leg with pain - Continue Plavix - Continue Zosyn 3.375 mg q8h - Trend CBC -WBC:10.55->7.94->9.99->8.49 - Tramadol and tylenol PRN for pain Right knee pain: - Knee pain with contracture - CT R knee: no acute fracture, effusion. Severe osteopenia, mild osteoa rthritis. - XR R Tibia/Fibula: No acute fracture. - XR Hip/Pelvis: No acute bony abnormalities. - CT pelvis Negative -Orthopedics consulted and following -Trial of corticosteroid injection ->no significant improvement - Minimal improvement with Baclofen - Continue Diclofenac topical QID. Hypoxia with dyspnea, COPD (new diagnosis): Extensive history of smoking and atherosclerotic disease. CTA negative, Doppler US RLE negative for DVT. Spirometry 11/12- FEV1 0.86, FEV1/FVC 0.57. Meets GOLD criteria for airflow limitation of Stage 1 COPD. -Patient not usually on O2 at baseline. Currently 1L NC -Continue O2 as needed for O2 saturation 88%+ -Wean as tolerated -Started on daily Anoro, albuterol PRN -tolerating well -Will obtain CXR if desaturation/respiratory distress/O2 requirement increases Tobacco abuse: - Long smoking history, most likely contributor to patient's vascular disease. - Continue nicotine patch Carotid artery disease: - History of left total occlusion s/p endarterectomy - On heparin SQ - Continue rosuvastatin, losartan, aspirin HTN: - Continue home losartan HLD: - Continue home rosuvastatin Hx of Anemia: - Hgb 9.6 on admission - Trend CBC -HGB: stable @ 9.8 Dispo: Med/Surg DVT Prophylaxis: Heparin SQ Code Status: Full Code Diet: Low-sodium (2) Carotid artery disease: (3) Tobacco abuse: (4) PAD (peripheral artery disease): Admission and Anticipated Discharge Date Admission Date: November 08, 2021 Results & Data Results & Data ([facility]) Vital Signs (Past 12 Hours) Vital Signs Temp Pulse Pulse Resp BP Pulse Ox 11/15/21 21:20 36.7 C 73 20 116/55 L 90 11/15/21 20:14 76 148/69 H Laboratory Results 11/16/21 11/15/21 Range/Units 05:58 07:35 WBC 8.49 (4.8-10.8) K/uL RBC 3.60 L (4.2-5.4) M/uL Hgb 9.8 L (12.0-16.0) g/dL Hct 31.4 L (37-47) % MCV 87.2 (80-100) fL MCH 27.2 (25-34) pg MCHC 31.2 L (32-36) g/dL RDW Std Deviation 50.3 H (36.4-46.3) fL RDW Coeff of Odette 15.6 H (11.5-14.5) % Plt Count 484 H (130-400) K/uL MPV 8.4 (7.4-10.4) fL Immature Gran % (Auto) 0.2 % Neut % (Auto) 77.3 % Lymph % (Auto) 10.8 % [place] % (Auto) 10.1 % Eos % (Auto) 0.9 % Baso % (Auto) 0.7 % Neut # (Auto) 6.55 H (1.4-6.5) K/uL Lymph # (Auto) 0.92 L (1.2-3.4) K/uL [place] # (Auto) 0.86 H (0.11-0.59) K/uL Eos # (Auto) 0.08 (0-0.5) K/uL Baso # (Auto) 0.06 (0-0.2) K/uL Immature Gran # (Auto) 0.02 (0.00-0.02) K/uL Creatinine Pending Est Cr Clr Drug Dosing Pending Est GFR ([facility]) Pending Est GFR (Non-Af Amer) Pending Medications Administered Current Inpatient Medications Acetaminophen (Acetaminophen 325 Mg Tab) 650 mg PO TID [facility] Stop: 12/14/21 13:59 Last Admin: 11/15/21 20:18 Dose: 650 mg Documented by: Albuterol (Albuterol Hfa 8 Gm Inhaler) 2 puffs INH BID PRN PRN Reason: Wheezing Stop: 12/11/21 20:59 Aspirin (Aspirin 81 Mg Ectab) [facility] [place] 12/09/21 08:59 Last Admin: 11/15/21 09:13 Dose: 81 mg Documented by: Carvedilol (Carvedilol 12.5 Mg Tab) 12.5 mg PO BID [facility] Stop: 12/08/21 20:59 Last Admin: 11/15/21 20:17 Dose: 12.5 mg Documented by: Clopidogrel Bisulfate (Clopidogrel Bisulfate 75 Mg Tab) 75 mg PO [facility] Stop: 12/12/21 08:59 Last Admin: 11/15/21 09:14 Dose: 75 mg Documented by: Diclofenac Sodium (Diclofenac Sod 1% Gel 100 Gm Tube) 4 gm EXT QID [facility] Stop: 12/11/21 16:59 Last Admin: 11/15/21 20:18 Dose: 4 gm Documented by: Ferrous Sulfate (Ferrous Sulfate 325 Mg Tab) 325 mg PO TID [facility] Stop: 12/08/21 20:59 Last Admin: 11/15/21 20:17 Dose: 325 mg Documented by: Heparin Sodium (Porcine) (Heparin Sod 5,000 Unit/0.5 Ml Vial) 5,000 units SQ Q12 [facility] Stop: 12/08/21 20:59 Last Admin: 11/15/21 20:17 Dose: 5,000 units Documented by: Piperacillin Sod/Tazobactam (Sod 3.375 gm/ Dextrose) 115 mls @ 28.75 mls/hr IV Q8H [facility]; Protocol Stop: 11/21/21 19:59 Last Admin: 11/16/21 05:02 Dose: 28.8 mls/hr Documented by: Losartan Potassium (Losartan Potassium 50 Mg Tab) 50 mg PO QAM [facility] Stop: 12/09/21 08:59 Last Admin: 11/15/21 07:41 Dose: 50 mg Documented by: Miscellaneous (Remove Nicoderm Patch) 1 ea N/A DAILY@0859 [facility] Stop: 12/11/21 08:58 Last Admin: 11/15/21 07:38 Dose: 1 ea Documented by: Miscellaneous Information (Piperacill/Tazobac Consult Active) 1 ea N/A UD PRN PRN Reason: Consult Stop: 12/08/21 18:12 Morphine Sulfate (Morphine Sulfate 2 Mg/Ml Carp) 2 mg IV Q6 PRN PRN Reason: severe pain not controlled by other means Stop: 11/22/21 17:13 Last Admin: 11/16/21 05:02 Dose: 2 mg Documented by: Nicotine (Nicotine 7 Mg/24 Hr Tdsy) 7 mg TD QAM [facility] Stop: 12/11/21 08:59 Last Admin: 11/15/21 09:15 Dose: 7 mg Documented by: Pantoprazole Sodium (Pantoprazole 40 Mg Tab) 40 mg PO BID [facility] Stop: 12/08/21 20:59 Last Admin: 11/15/21 20:17 Dose: 40 mg Documented by: Polyethylene Glycol (Polyethylene (Miralax) 17 Gm Pack) 17 gm PO DAILY PRN PRN Reason: Constipation Stop: 12/13/21 10:08 Last Admin: 11/13/21 10:26 Dose: 17 gm Documented by: Rosuvastatin Calcium (Rosuvastatin Calcium 20 Mg Tab) 20 mg PO QAM [facility] Stop: 12/09/21 08:59 Last Admin: 11/15/21 09:15 Dose: 20 mg Documented by: Tramadol HCl (Tramadol Hcl 50 Mg Tablet) 50 mg PO Q6H PRN PRN Reason: pain Stop: 12/08/21 18:12 Last Admin: 11/16/21 01:47 Dose: 50 mg Documented by: Umeclidinium/Vilanterol (Umeclidinium/Vilanterol 62.5/25mcg 7 Puffs/Inhaler) 1 puffs INH DAILY [facility] Stop: 12/13/21 11:14 Last Admin: 11/15/21 09:16 Dose: 1 puffs Documented by: (1) Carotid artery disease Carotid artery disease type: stenosis Laterality: bilateral Qualified Code(s): I65.23 - Occlusion and stenosis of bilateral carotid arteries
[2021-11-16 07:23] LABS: Creatinine Clr Calc Pharmacy 72.5 ml/min; Est GFR (African American) 112.3 ml/min; Est GFR (Non-African American) 96.9 ml/min
[2021-11-16] MEDS: UMECLIDINIUM/VILANTEROL 62.5/25MCG 7 PUFFS/INHALER INH SCH (09:02)
[2021-11-16] MEDS: ACETAMINOPHEN 325 MG TAB PO SCH ×3 (09:02→20:13)
[2021-11-16] MEDS: ASPIRIN 81 MG ECTAB PO SCH (09:03)
[2021-11-16] MEDS: LOSARTAN POTASSIUM 50 MG TAB PO SCH (09:04)
[2021-11-16] MEDS: carvediloL 12.5 MG TAB PO SCH ×2 (09:04→20:14)
[2021-11-16] MEDS: FERROUS SULFATE 325 MG TAB PO SCH ×3 (09:04→20:14)
[2021-11-16] MEDS: PANTOprazole 40 MG TAB PO SCH ×2 (09:04→20:14)
[2021-11-16] MEDS: ROSUVASTATIN CALCIUM 20 MG TAB PO SCH (09:04)
[2021-11-16] MEDS: DICLOFENAC SOD 1% GEL 100 GM TUBE EXT SCH ×4 (09:05→20:16)
[2021-11-16] MEDS: CLOPIDOGREL BISULFATE 75 MG TAB PO SCH (09:37)
[2021-11-16] MEDS: HEPARIN SOD 5,000 UNIT/0.5 ML VIAL SQ SCH ×2 (09:38→20:15)
[2021-11-16] MEDS: NICOTINE 7 MG/24 HR TDSY TD SCH (09:49)
--- NOTE | 2021-11-16 11:01 | Hospitalist Progress Note ---
Date of Service November 16, 2021 Assessment & Plan (1) Gangrene of toe of right foot: Plan: 66 year old female PmHx PAD, HLD, COPD, current smoker, HTN, CVA, and chronic wound of the right foot admitted for worsening of infection of right foot and development of gangrene. Gangrene of right foot: Hx R lower extremity ulcers and osteo w/ current treatment with Bactrim. Extensive PAD history. Arterial doppler showing findings compatible w/ critical stenosis. s/p Bactrim completed 11/11. - Vascular surgery consulted and following - Extensive gangrene, not a candidate for bypass at this time. Recommend amputation. - For AKA today - routine post op care per [facility] surge -Ortho Consulted -Trial of CS injection -> no significant iprovement -For AKA today - Continue Plavix - Continue Zosyn 3.375 mg q8h - Trend CBC -WBC:10.55->7.94->9.99->8.49 - Tramadol and tylenol PRN for pain Right knee pain: - Knee pain with contracture - CT R knee: no acute fracture, effusion. Severe osteopenia, mild osteoarthritis. - XR R Tibia/Fibula: No acute fracture. - XR Hip/Pelvis: No acute bony abnormalities. - CT pelvis Negative -Orthopedics consulted and following -Trial of corticosteroid injection ->no significant improvement - Minimal improvement with Baclofen - Continue Diclofenac topical QID. Hypoxia with dyspnea, COPD (new diagnosis): Extensive history of smoking and atherosclerotic disease. CTA negative, Doppler US RLE negative for DVT. Spirometry 11/12- FEV1 0.86, FEV1/FVC 0.57. Meets GOLD criteria for airflow limitation of Stage 1 COPD. -Patient not usually on O2 at baseline. Currently 1L NC -Continue O2 as needed for O2 saturation 88%+ -Wean as tolerated -11/16 tolerating room air -Started on daily Anoro, albuterol PRN -tolerating well -Will obtain CXR if desaturation/respiratory distress/O2 requirement increases Tobacco abuse: - Long smoking history, most likely contributor to patient's vascular disease. - Continue nicotine patch Carotid artery disease: - History of left total occlusion s/p endarterectomy - On heparin SQ - Continue rosuvastatin, losartan, aspirin HTN: - Continue home losartan HLD: - Continue home rosuvastatin Hx of Anemia: - Hgb 9.6 on admission - Trend CBC -HGB: stable @ 9.8 Dispo: Med/Surg DVT Prophylaxis: Heparin SQ Code Status: Full Code Diet: Low-sodium (2) Carotid artery disease: (3) Tobacco abuse: (4) PAD (peripheral artery disease): Admission and Anticipated Discharge Date Admission Date: November 08, 2021 Supervising Physician Co-Signing Physician Notes Ipersonally examined the patient and verified all finney points of history and exam, discussed case, and agree with decision making with Dr Mireles seen preop - only complaint is wanting something to drink - but NPO for surgery vitals noted nad heent nc at mmm breathing unlabored no accessory muscles good effort. neuro no focal deficits gangrenous foot - fortunately infection not progressing up leg by exam/etc - unfortunately does appear to require amputation - contracture makes it unlikely that she'd do well w BKA prosthesis. continue zosyn. for surgery today otherwise as above Subjective Patient lying in bed this morning in no acute distress. Reports no acute events overnight. Patient is for AKA today. She reports tolerating diet, voiding and stooling. Acute concerns related to upcoming surgery. She has been n.p.o. overnight. Reporting pain is well controlled Physical Exam Physical Exam: General: Sitting upright in no acute distress Cardiac: Regular rate and rhythm I do not appreciate any significant murmurs rubs or gallops nl S1 & S2 did not appreciate significant pedal edema. Respiratory: Clear to auscultation bilaterally coarse breath sounds at the bases with some expiratory wheezes GI: Soft, nontender, nondistended MSK: Endorsing pain in the right lower extremity. Skin: Gangrenous necrosis of the right toe and dorsal and plantar aspects of the right foot Results & Data Results & Data ([facility]) Vital Signs (Past 12 Hours) Vital Signs Temp Pulse Resp BP Pulse Ox 11/16/21 07:46 36.6 C 74 13 180/72 H 94 Laboratory Results 11/16/21 Range/Units 05:58 Creatinine 0.59 L (0.6-1.2) mg/dl Est Cr Clr Drug Dosing 72.5 ml/min Est GFR ( Amer) 112.3 ml/min Est GFR (Non-Af Amer) 96.9 ml/min Medications Administered Current Inpatient Medications Acetaminophen (Acetaminophen 325 Mg Tab) 650 mg PO TID [facility] Stop: 12/14/21 13:59 Last Admin: 11/16/21 09:02 Dose: 650 mg Documented by: Albuterol (Albuterol Hfa 8 Gm Inhaler) 2 puffs INH BID PRN PRN Reason: Wheezing Stop: 12/11/21 20:59 Aspirin (Aspirin 81 Mg Ectab) 81 mg PO QAM [facility] Stop: 12/09/21 08:59 Last Admin: 11/16/21 09:03 Dose: 81 mg Documented by: Carvedilol (Carvedilol 12.5 Mg Tab) 12.5 mg PO BID [facility] Stop: 12/08/21 20:59 Last Admin: 11/16/21 09:04 Dose: 12.5 mg Documented by: Clopidogrel Bisulfate (Clopidogrel Bisulfate 75 Mg Tab) 75 mg PO QAM [facility] Stop: 12/12/21 08:59 Last Admin: 11/16/21 09:37 Dose: 75 mg Documented by: Diclofenac Sodium (Diclofenac Sod 1% Gel 100 Gm Tube) 4 gm EXT QID [facility] Stop: 12/11/21 16:59 Last Admin: 11/16/21 09:05 Dose: 4 gm Documented by: Ferrous Sulfate (Ferrous Sulfate 325 Mg Tab) 325 mg PO TID [facility] Stop: 12/08/21 20:59 Last Admin: 11/16/21 09:04 Dose: 325 mg Documented by: Heparin Sodium (Porcine) (Heparin Sod 5,000 Unit/0.5 Ml Vial) 5,000 units SQ Q12 [facility] Stop: 12/08/21 20:59 Last Admin: 11/16/21 09:38 Dose: 5,000 units Documented by: Piperacillin Sod/Tazobactam (Sod 3.375 gm/ Dextrose) 115 mls @ 28.75 mls/hr IV Q8H [facility]; Protocol Stop: 11/21/21 19:59 Last Infusion: 11/16/21 09:57 Dose: Infused Documented by: Losartan Potassium (Losartan Potassium 50 Mg Tab) 50 mg PO QAM [facility] Stop: 12/09/21 08:59 Last Admin: 11/16/21 09:04 Dose: 50 mg Documented by: Miscellaneous (Remove Nicoderm Patch) 1 ea N/A DAILY@0859 [facility] Stop: 12/11/21 08:58 Last Admin: 11/16/21 09:01 Dose: 1 ea Documented by: Miscellaneous Information (Piperacill/Tazobac Consult Active) 1 ea N/A UD PRN PRN Reason: Consult Stop: 12/08/21 18:12 Morphine Sulfate (Morphine Sulfate 2 Mg/Ml Carp) 2 mg IV Q6 PRN PRN Reason: severe pain not controlled by other means Stop: 11/22/21 17:13 Last Admin: 11/16/21 05:02 Dose: 2 mg Documented by: Nicotine (Nicotine 7 Mg/24 Hr Tdsy) 7 mg TD QAM [facility] Stop: 12/11/21 08:59 Last Admin: 11/16/21 09:49 Dose: Not Given Documented by: Pantoprazole Sodium (Pantoprazole 40 Mg Tab) 40 mg PO BID [facility] Stop: 12/08/21 20:59 Last Admin: 11/16/21 09:04 Dose: 40 mg Documented by: Polyethylene Glycol (Polyethylene (Miralax) 17 Gm Pack) 17 gm PO DAILY PRN PRN Reason: Constipation Stop: 12/13/21 10:08 Last Admin: 11/13/21 10:26 Dose: 17 gm Documented by: Rosuvastatin Calcium (Rosuvastatin Calcium 20 Mg Tab) 20 mg PO QAM [facility] Stop: 12/09/21 08:59 Last Admin: 11/16/21 09:04 Dose: 20 mg Documented by: Tramadol HCl (Tramadol Hcl 50 Mg Tablet) 50 mg PO Q6H PRN PRN Reason: pain Stop: 12/08/21 18:12 Last Admin: 11/16/21 07:55 Dose: 50 mg Documented by: Umeclidinium/Vilanterol (Umeclidinium/Vilanterol 62.5/25mcg 7 Puffs/Inhaler) 1 puffs INH DAILY [facility] Stop: 12/13/21 11:14 Last Admin: 11/16/21 09:02 Dose: 1 puffs Documented by: (1) Carotid artery disease Carotid artery disease type: stenosis Laterality: bilateral Qualified Code(s): I65.23 - Occlusion and stenosis of bilateral carotid arteries
--- NOTE | 2021-11-16 12:36 | History & Physical Bridge Note ---
Date of Service November 16, 2021 History & Physical Bridge Note Patient for a right ABove knee amputation today. I have discussed the risks options and benefits of the procedure with the patient. The patient understands the risks options and benefits and agrees to the procedure. I have examined the patient, reviewed the History & Physical and in the interval since the performance of the History & Physical I have noted the following changes of clinical significance: no changes noted
[2021-11-16] MEDS ORDERED: fentaNYL citrate 100 MCG/2 ML VIAL ONE (12:37)
[2021-11-16] MEDS ORDERED: MIDAZOLAM HCL 1 MG/ML 2ML VIAL ONE (12:39)
[2021-11-16] MEDS ORDERED: ONDANSETRON INJ 2 MG/ML 2 ML VIAL ONE (12:40)
[2021-11-16] MEDS ORDERED: PROPOFOL IV EMULSION 10 MG/ML 20 ML VIAL IV ONE (12:40)
[2021-11-16] MEDS ORDERED: LIDOCAINE 2% 2 ML VIAL/AMP(20MG/ML) INFIL ONE (12:40)
[2021-11-16] MEDS ORDERED: fentaNYL citrate 100 MCG/2 ML VIAL IV PRN (12:49)
[2021-11-16] MEDS ORDERED: ATROPINE SULFATE 0.1 MG/ML 10ML SYR IV PRN (12:49)
[2021-11-16] MEDS ORDERED: ePHEDrine sulfate 50 MG/ML AMP IV PRN (12:49)
[2021-11-16] MEDS ORDERED: ONDANSETRON INJ 2 MG/ML 2 ML VIAL IV PRN (12:49)
[2021-11-16] MEDS ORDERED: EPINEPHrine INJ 1 MG/ML AMP ONE (12:57)
[2021-11-16] MEDS ORDERED: DEXAMETHASONE SOD INJ 4 MG/ML VIAL ONE (12:57)
[2021-11-16] MEDS ORDERED: BUPIVACAINE 0.5 % 5 MG/1 ML MPF 30ML VIAL ONE (12:57)
[2021-11-16] MEDS ORDERED: ePHEDrine sulfate 50 MG/ML AMP ONE (13:33)
[2021-11-16] MEDS ORDERED: ePHEDrine sulfate 50 MG/ML SYR ONE (13:33)
--- NOTE | 2021-11-16 14:22 | Operative Report ---
Post Operative Report Pre & Post Diagnosis Operation Date: 11/09/21 12:30 <No data on this case meets the specified criteria> Operation Date: 11/11/21 13:00 <No data on this case meets the specified criteria> Operation Date: 11/16/21 12:00 Pre-Op Diagnosis: DRY GANGRENE TO RIGHT FOOT Post-Op Diagnosis: DRY GANGRENE TO RIGHT FOOT I identified the patient and participated in the time-out.: Yes Procedure Operation Date: 11/09/21 12:30 <No data on this case meets the specified criteria> Operation Date: 11/11/21 13:00 <No data on this case meets the specified criteria> Operation Date: 11/16/21 12:00 Actual Procedures p Right Above Knee Amputation(Right) - Cash Baker MD Surgeon Cash Baker MD 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 Her ulcer worsened and she developed gangrene of the right foot. This mummified to the distal half of the foot. She had a contracture of her right knee which cannot be straightened we therefore recommended an above-knee amputation right side. I have discussed the risks options and benefits of the procedure with the patient. The patient understands the risks options and benefits and agrees to the procedure. Description of Procedure The patient was taken to the operating room and placed in the supine position. The right leg was then prepped and draped in a sterile manner. The patient was identified and a timeout was performed. A fishmouth incision was made 2 fingerbreadths above the patella. This was carried through the anterior muscle fascia electrocautery. The muscle at that level was viable. The Gigli saw was then used after the periosteum was peeled off the bone. Once the bone was transected with a Gigli saw an anterior bevel the amputation knife was used to form the posterior flap. Leg leg was then removed. Active hemostasis was then obtained. The artery and vein were individually tied. After adequate hemostasis was noted the posterior and anterior flaps were approximated using 3- 0 Vicryl interrupted sutures. Five [place] were then used. The skin edges. Sterile dressings were applied.The patient left the operation room in satisfactory condition and tolerated the procedure well. All needle and sponge counts were correct at the end of the procedure. Mony Shahid Pac assisted due to lack of resident availability and was necessary for positioning, draping, retraction, wound closure deep layers, subcutaneous tissue, and skin closure and was necessary for assisting with the case. I attest to the content of the Intraoperative Record and any orders documented therein. Any exceptions are noted below.
--- NOTE | 2021-11-16 14:56 | Anesthesiology Progress Note ---
Date of Service November 16, 2021 Anesthesia Post Procedure Vital Signs Vital Signs: Temp Pulse Pulse Pulse Resp BP BP 11/16/21 14:45 78 13 139/69 11/16/21 14:35 75 12 112/60 11/16/21 14:25 63 10 L 149/63 H 11/16/21 14:15 36.3 C L 62 17 147/60 H 11/16/21 12:35 36.9 C 59 L 20 124/66 11/16/21 07:46 36.6 C 74 13 180/72 H 11/15/21 21:20 36.7 C 73 20 116/55 L 11/15/21 20:14 76 148/69 H 11/15/21 15:50 36.7 C 78 18 151/67 H Pulse Ox 11/16/21 14:45 96 11/16/21 14:35 98 11/16/21 14:25 99 11/16/21 14:15 98 11/16/21 12:35 91 11/16/21 07:46 94 11/15/21 21:20 90 11/15/21 20:14 11/15/21 15:50 93 Pain Intensity Right Foot: Pain Intensity: 7 Right Knee: Pain Intensity: 6 Right Hip: Pain Intensity: 5 Transfer of Care Handoff Completed per policy Notes Mental Status: alert / awake / arousable Patient Amnestic to Procedure: Yes Nausea / Vomiting: adequately controlled Pain: adequately controlled Airway Patency, RR, SpO2: stable & adequate BP & HR: stable & adequate Hydration State: stable & adequate Anesthetic Complications: no major complications apparent Notes: block working well in pacu
--- NOTE | 2021-11-16 17:54 | Billing Data ---
Date of Service November 16, 2021 Coding Level of Care Code 69714 Subseq Hosp Care Lvl 2
[2021-11-17] MEDS: PIPERACILLIN/TAZOBACTAM 3.375 GM in DEXTROSE 5% 100 ML IV SCH ×3 (05:05→19:45)
[2021-11-17 06:15] LABS: Basophils # (auto) 0.03 K/uL (0-0.2); Basophils % (auto) 0.3 %; Eosinophils # (auto) 0.03 K/uL (0-0.5); Eosinophils % (auto) 0.3 %; Hematocrit (blood only) 29.3 % (37-47); Hemoglobin 9.1 g/dL (12.0-16.0); Immature Granulocytes # (auto) 0.02 K/uL (0.00-0.02); Immature Granulocytes % (auto) 0.2 %; Lymphocytes # (auto) 1.16 K/uL (1.2-3.4); Mean Corpuscular Hemoglobin 27.3 pg (25-34); Mean Corpuscular Hgb Conc 31.1 g/dL (32-36); Mean Platelet Volume 8.3 fL (7.4-10.4); Monocytes # (auto) 0.93 K/uL (0.11-0.59); Monocytes % (auto) 9.6 %; Neutrophils # (auto) 7.47 K/uL (1.4-6.5); Neutrophils % (auto) 77.6 %; Platelet Count 518 K/uL (130-400); RDW Coefficient of Variation 15.8 % (11.5-14.5); RDW Standard Deviation 51.5 fL (36.4-46.3); Red Blood Count 3.33 M/uL (4.2-5.4); White Blood Count 9.64 K/uL (4.8-10.8)
[2021-11-17 06:49] LABS: Albumin Level 3.3 gm/dl (3.4-5.0); BUN Creatinine Ratio 37.7 (10-20); Bilirubin,Total 0.3 mg/dl (0.2-1.0); Calcium 9.1 mg/dl (8.5-10.1); Creatinine Clr Calc Pharmacy 80.8 ml/min; Est GFR (African American) 116.3 ml/min; Est GFR (Non-African American) 100.3 ml/min; Globulin 3.4 gm/dl (2.5-4.0); Potassium 4.1 mmol/L (3.5-5.1); Total Protein 6.7 gm/dl (6.0-8.3)
[2021-11-17] MEDS: carvediloL 12.5 MG TAB PO SCH ×2 (08:04→20:35)
[2021-11-17] MEDS: PANTOprazole 40 MG TAB PO SCH ×2 (08:04→20:35)
[2021-11-17] MEDS: LOSARTAN POTASSIUM 50 MG TAB PO SCH (08:04)
[2021-11-17] MEDS: ROSUVASTATIN CALCIUM 20 MG TAB PO SCH (08:04)
[2021-11-17] MEDS: CLOPIDOGREL BISULFATE 75 MG TAB PO SCH (08:04)
[2021-11-17] MEDS: FERROUS SULFATE 325 MG TAB PO SCH ×3 (08:04→20:35)
[2021-11-17] MEDS: UMECLIDINIUM/VILANTEROL 62.5/25MCG 7 PUFFS/INHALER INH SCH (08:04)
[2021-11-17] MEDS: HEPARIN SOD 5,000 UNIT/0.5 ML VIAL SQ SCH ×2 (08:05→20:38)
[2021-11-17] MEDS: DICLOFENAC SOD 1% GEL 100 GM TUBE EXT SCH ×4 (08:05→20:35)
[2021-11-17] MEDS: ASPIRIN 81 MG ECTAB PO SCH (08:05)
[2021-11-17] MEDS: ACETAMINOPHEN 325 MG TAB PO SCH ×3 (08:07→20:35)
[2021-11-17] MEDS: traMADol HCL 50 MG TABLET PO PRN ×3 (08:08→23:47)
[2021-11-17] MEDS: NICOTINE 7 MG/24 HR TDSY TD SCH (08:31)
--- NOTE | 2021-11-17 08:32 | Hospitalist Progress Note ---
Date of Service November 17, 2021 Assessment & Plan (1) Gangrene of toe of right foot: Plan: 66 year old female PmHx PAD, HLD, COPD, current smoker, HTN, CVA, and chronic wound of the right foot admitted for worsening of infection of right foot and development of gangrene. #Postop day 1 Right lower extremity [id number] amputation secondary to gangrene of right foot: Hx R lower extremity ulcers and osteo w/ current treatment with Bactrim. Extensive PAD history. Arterial doppler showing findings compatible w/ critical stenosis. s/p Bactrim completed 11/11. - Vascular surgery consulted and following -POD 1 s/p amputation -routine postop care -Appreciate abx reccomendations - Continue Plavix - Continue Zosyn 3.375 mg q8h - Trend CBC -WBC:10.55->7.94->9.99->8.49->9.1->9.6 - Tramadol and tylenol PRN for pain Hypoxia with dyspnea, COPD (new diagnosis): Extensive history of smoking and atherosclerotic disease. CTA negative, Doppler US RLE negative for DVT. Spirometry 11/12- FEV1 0.86, FEV1/FVC 0.57. Meets GOLD criteria for airflow limitation of Stage 1 COPD. -Patient not usually on O2 at baseline. Currently 1L NC -Continue O2 as needed for O2 saturation 88%+ -Wean as tolerated -11/16 tolerating room air -Continue Anoro, albuterol PRN -Will obtain CXR if desaturation/respiratory distress/O2 requirement increases Tobacco abuse: - Long smoking history, most likely contributor to patient's vascular disease. - Continue nicotine patch Carotid artery disease: - History of left total occlusion s/p endarterectomy - On heparin SQ - Continue rosuvastatin, losartan, aspirin HTN: - Continue home losartan HLD: - Continue home rosuvastatin Hx of Anemia: - Hgb 9.6 on admission - Trend CBC -HGB: stable @ 9.8 -9.6 post op Dispo: Med/Surg DVT Prophylaxis: Heparin SQ Code Status: Full Code Diet: Low-sodium FENa: Low-sodium Code Status: Full code DVT PPX: Heparin PT/OT: Consulted Case Management: Consulted Dispo: Pending evaluation by PT and OT, med telemetry for now Olman Mireles MD PGY 3, FCM This chart was completed utilizing [employer] voice recognition software. Grammatical errors, random word insertions, pronoun errors, and in complete sentences are an occasional consequence of the system. Any questions or concerns about the content, text, or information contained within the body of this dictation should be addressed directly to the physician for clarification. (2) Carotid artery disease: (3) Tobacco abuse: (4) PAD (peripheral artery disease): Admission and Anticipated Discharge Date Admission Date: November 08, 2021 Supervising Physician Co-Signing Physician Notes Ipersonally examined the patient and verified all finney points of history and exam, discussed case, and agree with decision making with Dr Chi hensley appearing comfortable no new issues have arisen vitals noted nad heent nc at mmm breathing unlabored no accessory muscles good effort. neuro no focal deficits at rest gangrenous foot - now post AKA. will await vascular input but suspect can stop abx since did not have progressive infection/sepsis/bacteremia and with AKA infection removed with quite wide margins PT/OT, anticipate need for SNF otherwise as above Subjective Patient sitting upright in bed this morning in no acute distress. Patient is tolerating diet, voiding and stooling. Patient reports doing well after surgery, she was little bit tired postoperatively. She denies any significant chest pressure, chest pain, shortness of breath, or for pain in her lower extremity. Acute concerns related to disposition. Physical Exam Physical Exam: General: Sitting upright in no acute distress Cardiac: Regular rate and rhythm I do not appreciate any significant murmurs rubs or gallops nl S1 & S2 did not appreciate significant pedal edema. Respiratory: Clear to auscultation bilaterally coarse breath sounds at the bases with some expiratory wheezes GI: Soft, nontender, nondistended MSK: Endorsing pain in the right lower extremity. Skin: Amputated right lower extremity, wound site clean dry and intact. Results & Data Results & Data ([facility]) Vital Signs (Past 12 Hours) Vital Signs Temp Pulse Resp BP Pulse Ox 11/17/21 07:34 36.7 C 76 16 156/69 H 92 11/17/21 01:55 36.5 C 79 16 130/62 91 11/16/21 22:18 36.5 C 68 18 135/71 96 Laboratory Results 11/17/21 11/17/21 Range/Units 05:31 05:31 WBC 9.64 (4.8-10.8) K/uL RBC 3.33 L (4.2-5.4) M/uL Hgb 9.1 L (12.0-16.0) g/dL Hct 29.3 L (37-47) % MCV 88.0 (80-100) fL MCH 27.3 (25-34) pg MCHC 31.1 L (32-36) g/dL RDW Std Deviation 51.5 H (36.4-46.3) fL RDW Coeff of Odette 15.8 H (11.5-14.5) % Plt Count 518 H (130-400) K/uL MPV 8.3 (7.4-10.4) fL Immature Gran % (Auto) 0.2 % Neut % (Auto) 77.6 % Lymph % (Auto) 12.0 % Emmons % (Auto) 9.6 % Eos % (Auto) 0.3 % Baso % (Auto) 0.3 % Neut # (Auto) 7.47 H (1.4-6.5) K/uL Lymph # (Auto) 1.16 L (1.2-3.4) K/uL Emmons # (Auto) 0.93 H (0.11-0.59) K/uL Eos # (Auto) 0.03 (0-0.5) K/uL Baso # (Auto) 0.03 (0-0.2) K/uL Immature Gran # (Auto) 0.02 (0.00-0.02) K/uL Sodium 130 L (136-145) mmol/L Potassium 4.1 (3.5-5.1) mmol/L Chloride 94 L (98-107) mmol/L Carbon Dioxide 28 (21-32) mmol/L Anion Gap 8 (3-11) BUN 20 (6-23) mg/dl Creatinine 0.53 L (0.6-1.2) mg/dl Est Cr Clr Drug Dosing 80.8 ml/min Est GFR ( Amer) 116.3 ml/min Est GFR (Non-Af Amer) 100.3 ml/min BUN/Creatinine Ratio 37.7 H (10-20) Glucose 102 H (70-99(Fasting)) mg/dl Calcium 9.1 (8.5-10.1) mg/dl Total Bilirubin 0.3 (0.2-1.0) mg/dl AST 21 (13-39) U/L ALT 19 (7-52) U/L Alkaline Phosphatase 87 (34-104) U/L Total Protein 6.7 (6.0-8.3) gm/dl Albumin 3.3 L (3.4-5.0) gm/dl Globulin 3.4 (2.5-4.0) gm/dl Albumin/Globulin Ratio 1.0 (0.9-2) Medications Administered Current Inpatient Medications Acetaminophen (Acetaminophen 325 Mg Tab) 650 mg PO TID [facility] Stop: 12/14/21 13:59 Last Admin: 11/17/21 08:07 Dose: 650 mg Documented by: Albuterol (Albuterol Hfa 8 Gm Inhaler) 2 puffs INH BID PRN PRN Reason: Wheezing Stop: 12/11/21 20:59 Aspirin (Aspirin 81 Mg Ectab) 81 mg PO QAM [facility] Stop: 12/09/21 08:59 Last Admin: 11/17/21 08:05 Dose: 81 mg Documented by: Carvedilol (Carvedilol 12.5 Mg Tab) 12.5 mg PO BID [facility] Stop: 12/08/21 20:59 Last Admin: 11/17/21 08:04 Dose: 12.5 mg Documented by: Clopidogrel Bisulfate (Clopidogrel Bisulfate 75 Mg Tab) 75 mg PO QAM [facility] Stop: 12/12/21 08:59 Last Admin: 11/17/21 08:04 Dose: 75 mg Documented by: Diclofenac Sodium (Diclofenac Sod 1% Gel 100 Gm Tube) 4 gm EXT QID [facility] Stop: 12/11/21 16:59 Last Admin: 11/17/21 08:05 Dose: Not Given Documented by: Ferrous Sulfate (Ferrous Sulfate 325 Mg Tab) 325 mg PO TID [facility] Stop: 12/08/21 20:59 Last Admin: 11/17/21 08:04 Dose: 325 mg Documented by: Heparin Sodium (Porcine) (Heparin Sod 5,000 Unit/0.5 Ml Vial) 5,000 units SQ Q12 [facility] Stop: 12/08/21 20:59 Last Admin: 11/17/21 08:05 Dose: 5,000 units Documented by: Piperacillin Sod/Tazobactam (Sod 3.375 gm/ Dextrose) 115 mls @ 28.75 mls/hr IV Q8H [facility]; Protocol Stop: 11/21/21 19:59 Last Admin: 11/17/21 05:05 Dose: 28.8 mls/hr Documented by: Losartan Potassium (Losartan Potassium 50 Mg Tab) [facility] [place]: 12/09/21 08:59 Last Admin: 11/17/21 08:04 Dose: 50 mg Documented by: Miscellaneous (Remove Nicoderm Patch) 1 ea N/A DAILY@0859 [facility] Stop: 12/11/21 08:58 Last Admin: 11/17/21 08:05 Dose: Not Given Documented by: Miscellaneous Information (Piperacill/Tazobac Consult Active) 1 ea N/A UD PRN PRN Reason: Consult Stop: 12/08/21 18:12 Morphine Sulfate (Morphine Sulfate 2 Mg/Ml Carp) 2 mg IV Q6 PRN PRN Reason: severe pain not controlled by other means Stop: 11/22/21 17:13 Last Admin: 11/16/21 12:05 Dose: 2 mg Documented by: Nicotine (Nicotine 7 Mg/24 Hr Tdsy) 7 mg TD [facility] Stop: 12/11/21 08:59 Last Admin: 11/17/21 08:31 Dose: 7 mg Documented by: Pantoprazole Sodium (Pantoprazole 40 Mg Tab) 40 mg PO BID [facility] Stop: 12/08/21 20:59 Last Admin: 11/17/21 08:04 Dose: 40 mg Documented by: Polyethylene Glycol (Polyethylene (Miralax) 17 Gm Pack) 17 gm PO DAILY PRN PRN Reason: Constipation Stop: 12/13/21 10:08 Last Admin: 11/13/21 10:26 Dose: 17 gm Documented by: Rosuvastatin Calcium (Rosuvastatin Calcium 20 Mg Tab) 20 mg PO [facility] Stop: 12/09/21 08:59 Last Admin: 11/17/21 08:04 Dose: 20 mg Documented by: Tramadol HCl (Tramadol Hcl 50 Mg Tablet) 50 mg PO Q6H PRN PRN Reason: pain Stop: 12/08/21 18:12 Last Admin: 11/17/21 08:08 Dose: 50 mg Documented by: Umeclidinium/Vilanterol (Umeclidinium/Vilanterol 62.5/25mcg 7 Puffs/Inhaler) 1 puffs INH DAILY [facility] Stop: 12/13/21 11:14 Last Admin: 11/17/21 08:04 Dose: 1 puffs Documented by: (1) Carotid artery disease Carotid artery disease type: stenosis Laterality: bilateral Qualified Code(s): I65.23 - Occlusion and stenosis of bilateral carotid arteries
[2021-11-17] MEDS: MoRPHine SULFATE 2 MG/ML CARP IV PRN ×2 (10:54→19:52)
--- NOTE | 2021-11-17 12:04 | Billing Data ---
Date of Service November 17, 2021 Coding Level of Care Code 97714 Subseq Hosp Care Lvl 2
[2021-11-18] MEDS: MoRPHine SULFATE 2 MG/ML CARP IV PRN ×3 (01:54→08:08)
[2021-11-18] MEDS: PIPERACILLIN/TAZOBACTAM 3.375 GM in DEXTROSE 5% 100 ML IV SCH ×3 (04:19→21:28)
[2021-11-18] MEDS ORDERED: MoRPHine SULFATE 2 MG/ML CARP IV STA (04:30)
[2021-11-18] MEDS: traMADol HCL 50 MG TABLET PO PRN ×3 (05:50→18:23)
[2021-11-18] MEDS: DICLOFENAC SOD 1% GEL 100 GM TUBE EXT SCH ×4 (08:00→21:39)
[2021-11-18] MEDS: NICOTINE 7 MG/24 HR TDSY TD SCH (08:06)
[2021-11-18] MEDS: PANTOprazole 40 MG TAB PO SCH ×2 (08:06→21:33)
[2021-11-18] MEDS: CLOPIDOGREL BISULFATE 75 MG TAB PO SCH (08:06)
[2021-11-18] MEDS: LOSARTAN POTASSIUM 50 MG TAB PO SCH (08:06)
[2021-11-18] MEDS: carvediloL 12.5 MG TAB PO SCH ×2 (08:06→21:33)
[2021-11-18] MEDS: ROSUVASTATIN CALCIUM 20 MG TAB PO SCH (08:06)
[2021-11-18] MEDS: ACETAMINOPHEN 325 MG TAB PO SCH ×3 (08:07→21:35)
[2021-11-18] MEDS: HEPARIN SOD 5,000 UNIT/0.5 ML VIAL SQ SCH ×2 (08:07→21:35)
[2021-11-18] MEDS: ASPIRIN 81 MG ECTAB PO SCH (08:07)
[2021-11-18] MEDS: FERROUS SULFATE 325 MG TAB PO SCH ×3 (08:07→21:34)
--- NOTE | 2021-11-18 08:59 | Hospitalist Progress Note ---
Date of Service November 18, 2021 Assessment & Plan (1) Gangrene of toe of right foot: Plan: 66 year old female PmHx PAD, HLD, COPD, current smoker, HTN, CVA, and chronic wound of the right foot admitted for worsening of infection of right foot and development of gangrene. Postop day 2 Right lower extremity [id number] amputation secondary to gangrene of right foot: Hx R lower extremity ulcers and osteo w/ current treatment with Bactrim. Extensive PAD history. Arterial doppler showing findings compatible w/ critical stenosis. s/p Bactrim completed 11/11. - Vascular surgery consulted and following -routine postop care -Dressing replaced -Follow-up as an outpatient in 2 to 3 weeks for staple removal -Appreciate abx reccomendations - Continue Plavix - Trend CBC -WBC:10.55->7.94->9.99->8.49->9.1->9.6->7.9 -White count stable will DC antibiotics - Tramadol and tylenol PRN for pain -As needed morphine 4 mg nightly Hypoxia with dyspnea, COPD (new diagnosis): Extensive history of smoking and atherosclerotic disease. CTA negative, Doppler US RLE negative for DVT. Spirometry 11/12- FEV1 0.86, FEV1/FVC 0.57. Meets GOLD criteria for airflow limitation of Stage 1 COPD. -Patient not usually on O2 at baseline. 11/16 tolerating room air -prn O2 -Continue Anoro, albuterol PRN -Will obtain CXR if desaturation/respiratory distress/O2 requirement increases Tobacco abuse: - Long smoking history, most likely contributor to patient's vascular disease. - Continue nicotine patch Carotid artery disease: - History of left total occlusion s/p endarterectomy - On heparin SQ - Continue rosuvastatin, losartan, aspirin HTN: - Continue home losartan HLD: - Continue home rosuvastatin Hx of Anemia: - Hgb 9.6 on admission - Trend CBC -HGB: stable @ 9.8 -9.6 post op Not vaccinated for COVID-19 Complicating process of rehab referral. FENa: Low-sodium Code Status: Full code DVT PPX: Heparin PT/OT: Consulted Case Management: Consulted referral placed to [facility] and eliseo. Unvaccinated status complicates rehab referral Dispo: Pending evaluation by PT and OT, med telemetry for now Olman Mireles MD PGY 3, FCM This chart was completed utilizing [employer] dictation voice recognition software. Grammatical errors, random word insertions, pronoun errors, and in complete sentences are an occasional consequence of the system. Any questions or concerns about the content, text, or information contained within the body of this dictation should be addressed directly to the physician for clarification. (2) Carotid artery disease: (3) Tobacco abuse: (4) PAD (peripheral artery disease): Admission and Anticipated Discharge Date Admission Date: November 08, 2021 Supervising Physician Co-Signing Physician Notes Ipersonally examined the patient and verified all finney points of history and exam, discussed case, and agree with decision making with Dr Mireles in bed, no complaints no pain. denies any specific needs vitals noted nad heent nc at mmm breathing unlabored no accessory muscles good effort. neuro no focal deficits at rest. stump appears healing well, no erythema gangrenous foot - now post AKA. PT/OT eval and treat PT/OT, anticipate need for SNF otherwise as above Subjective Patient lying in bed this morning in no acute distress. She reports doing well overnight with slight exacerbation of pain. Otherwise she is tolerating her diet voiding and stooling no acute distress. Acute concerns related to placement, all questions answered. Physical Exam Physical Exam: General: Sitting upright in no acute distress Cardiac: Regular rate and rhythm I do not appreciate any significant murmurs rubs or gallops nl S1 & S2 did not appreciate significant pedal edema. Respiratory: Clear to auscultation bilaterally coarse breath sounds at the bases with some expiratory wheezes GI: Soft, nontender, nondistended MSK: Endorsing pain in the right lower extremity. Skin: Amputated right lower extremity, wound site clean dry and intact. Results & Data Results & Data ([facility]) Vital Signs (Past 12 Hours) Vital Signs Temp Pulse Resp BP Pulse Ox 11/18/21 07:50 36.9 C 74 16 145/69 H 93 11/17/21 21:25 36.7 C 74 18 93/57 L 93 Laboratory Results 11/18/21 Range/Units 09:12 WBC 7.90 (4.8-10.8) K/uL RBC 3.36 L (4.2-5.4) M/uL Hgb 9.2 L (12.0-16.0) g/dL Hct 29.7 L (37-47) % MCV 88.4 (80-100) fL MCH 27.4 (25-34) pg MCHC 31.0 L (32-36) g/dL RDW Std Deviation 51.2 H (36.4-46.3) fL RDW Coeff of Odette 15.9 H (11.5-14.5) % Plt Count 520 H (130-400) K/uL MPV 8.3 (7.4-10.4) fL Immature Gran % (Auto) 0.1 % Neut % (Auto) 77.1 % Lymph % (Auto) 10.5 % Dickson % (Auto) 9.4 % Eos % (Auto) 2.0 % Baso % (Auto) 0.9 % Neut # (Auto) 6.09 (1.4-6.5) K/uL Lymph # (Auto) 0.83 L (1.2-3.4) K/uL Dickson # (Auto) 0.74 H (0.11-0.59) K/uL Eos # (Auto) 0.16 (0-0.5) K/uL Baso # (Auto) 0.07 (0-0.2) K/uL Immature Gran # (Auto) 0.01 (0.00-0.02) K/uL Medications Administered Current Inpatient Medications Acetaminophen (Acetaminophen 325 Mg Tab) 650 mg PO TID [facility] Stop: 12/14/21 13:59 Last Admin: 11/18/21 08:07 Dose: 650 mg Documented by: Albuterol (Albuterol Hfa 8 Gm Inhaler) 2 puffs INH BID PRN PRN Reason: Wheezing Stop: 12/11/21 20:59 Aspirin (Aspirin 81 Mg Ectab) [facility] [place] Stop: 12/09/21 08:59 Last Admin: 11/18/21 08:07 Dose: 81 mg Documented by: Carvedilol (Carvedilol 12.5 Mg Tab) 12.5 mg PO BID [facility] Stop: 12/08/21 20:59 Last Admin: 11/18/21 08:06 Dose: 12.5 mg Documented by: Clopidogrel Bisulfate (Clopidogrel Bisulfate 75 Mg Tab) 75 mg PO QAM [facility] Stop: 12/12/21 08:59 Last Admin: 11/18/21 08:06 Dose: 75 mg Documented by: Diclofenac Sodium (Diclofenac Sod 1% Gel 100 Gm Tube) 4 gm EXT QID [facility] Stop: 12/11/21 16:59 Last Admin: 11/18/21 08:00 Dose: Not Given Documented by: Ferrous Sulfate (Ferrous Sulfate 325 Mg Tab) 325 mg PO TID [facility] Stop: 12/08/21 20:59 Last Admin: 11/18/21 08:07 Dose: 325 mg Documented by: Heparin Sodium (Porcine) (Heparin Sod 5,000 Unit/0.5 Ml Vial) 5,000 units SQ Q12 [facility] Stop: 12/08/21 20:59 Last Admin: 11/18/21 08:07 Dose: 5,000 units Documented by: Piperacillin Sod/Tazobactam (Sod 3.375 gm/ Dextrose) 115 mls @ 28.75 mls/hr IV Q8H [facility]; Protocol Stop: 11/21/21 19:59 Last Admin: 11/18/21 04:19 Dose: 28.8 mls/hr Documented by: Losartan Potassium (Losartan Potassium 50 Mg Tab) 50 mg PO QAM [facility] Stop: 12/09/21 08:59 Last Admin: 11/18/21 08:06 Dose: 50 mg Documented by: Miscellaneous (Remove Nicoderm Patch) 1 ea N/A DAILY@0859 [facility] Stop: 12/11/21 08:58 Last Admin: 11/18/21 08:07 Dose: 1 ea Documented by: Miscellaneous Information (Piperacill/Tazobac Consult Active) 1 ea N/A UD PRN PRN Reason: Consult Stop: 12/08/21 18:12 Morphine Sulfate (Morphine Sulfate 2 Mg/Ml Carp) 2 mg IV Q6 PRN PRN Reason: severe pain not controlled by other means Stop: 11/22/21 17:13 Last Admin: 11/18/21 08:08 Dose: 2 mg Documented by: Nicotine (Nicotine 7 Mg/24 Hr Tdsy) 7 mg TD QAM [facility] Stop: 12/11/21 08:59 Last Admin: 11/18/21 08:06 Dose: 7 mg Documented by: Pantoprazole Sodium (Pantoprazole 40 Mg Tab) 40 mg PO BID [facility] Stop: 12/08/21 20:59 Last Admin: 11/18/21 08:06 Dose: 40 mg Documented by: Polyethylene Glycol (Polyethylene (Miralax) 17 Gm Pack) 17 gm PO DAILY PRN PRN Reason: Constipation Stop: 12/13/21 10:08 Last Admin: 11/13/21 10:26 Dose: 17 gm Documented by: Rosuvastatin Calcium (Rosuvastatin Calcium 20 Mg Tab) 20 mg PO QAM [facility] Stop: 12/09/21 08:59 Last Admin: 11/18/21 08:06 Dose: 20 mg Documented by: Tramadol HCl (Tramadol Hcl 50 Mg Tablet) 50 mg PO Q6H PRN PRN Reason: pain Stop: 12/08/21 18:12 Last Admin: 11/18/21 05:50 Dose: 50 mg Documented by: Umeclidinium/Vilanterol (Umeclidinium/Vilanterol 62.5/25mcg 7 Puffs/Inhaler) 1 puffs INH DAILY [facility] Stop: 12/13/21 11:14 Last Admin: 11/17/21 08:04 Dose: 1 puffs Documented by: (1) Carotid artery disease Carotid artery disease type: stenosis Laterality: bilateral Qualified Code(s): I65.23 - Occlusion and stenosis of bilateral carotid arteries
--- NOTE | 2021-11-18 09:10 | Surgery Progress Note ---
Date of Service November 18, 2021 Assessment & Plan (1) S/P above knee amputation: Plan: Pt is now s/p RLE AKA, doing well. Dressing replaced with dry dressing d/t small amt drainage. Will see in office in 2-3 weeks for staple removal. Pt understands this plan. Admission and Anticipated Discharge Date Admission Date: November 08, 2021 Subjective 66 yo f POD#2 after RLE AKA due to PAd with gangrene, seen in f/u today. Pt states pain is moderate, but controlled with medications. Denies any other new complaints. Review of Systems Review of Systems: All systems reviewed & are unremarkable except as noted in HPI & below Physical Exam Constitutional: well developed, + thin, + frail appearing, + disheveled and cooperative; not in distress Skin: + incision (RLE AKA site C/I with blayne, mild bloody/serous drainage); no erythema and no fluctulance Neurologic: awake; no focal motor deficits and not confused Results & Data ([facility]) Vital Signs (Past 12 Hours) Vital Signs Temp Pulse Resp BP Pulse Ox 11/18/21 07:50 36.9 C 74 16 145/69 H 93 11/17/21 21:25 36.7 C 74 18 93/57 L 93
[2021-11-18 09:28] LABS: Basophils # (auto) 0.07 K/uL (0-0.2); Basophils % (auto) 0.9 %; Eosinophils # (auto) 0.16 K/uL (0-0.5); Hematocrit (blood only) 29.7 % (37-47); Hemoglobin 9.2 g/dL (12.0-16.0); Immature Granulocytes # (auto) 0.01 K/uL (0.00-0.02); Immature Granulocytes % (auto) 0.1 %; Lymphocytes # (auto) 0.83 K/uL (1.2-3.4); Lymphocytes % (auto) 10.5 %; Mean Corpuscular Hemoglobin 27.4 pg (25-34); Mean Corpuscular Volume 88.4 fL (80-100); Mean Platelet Volume 8.3 fL (7.4-10.4); Monocytes # (auto) 0.74 K/uL (0.11-0.59); Monocytes % (auto) 9.4 %; Neutrophils # (auto) 6.09 K/uL (1.4-6.5); Neutrophils % (auto) 77.1 %; Platelet Count 520 K/uL (130-400); RDW Coefficient of Variation 15.9 % (11.5-14.5); RDW Standard Deviation 51.2 fL (36.4-46.3); Red Blood Count 3.36 M/uL (4.2-5.4)
[2021-11-18] MEDS: UMECLIDINIUM/VILANTEROL 62.5/25MCG 7 PUFFS/INHALER INH SCH (09:33)
--- NOTE | 2021-11-18 17:26 | Billing Data ---
Date of Service November 18, 2021 Coding Level of Care Code 27141 Subseq Hosp Care Lvl 2
[2021-11-18] MEDS: oxyCODONE/ACETAMINOPHEN 10-325 TAB PO PRN (21:34)
[2021-11-19] MEDS: PIPERACILLIN/TAZOBACTAM 3.375 GM in DEXTROSE 5% 100 ML IV SCH ×2 (04:46→12:24)
[2021-11-19] MEDS: traMADol HCL 50 MG TABLET PO PRN ×2 (07:42→23:14)
[2021-11-19] MEDS: carvediloL 12.5 MG TAB PO SCH ×2 (09:08→20:50)
[2021-11-19] MEDS: LOSARTAN POTASSIUM 50 MG TAB PO SCH (09:08)
[2021-11-19] MEDS: CLOPIDOGREL BISULFATE 75 MG TAB PO SCH (09:08)
[2021-11-19] MEDS: NICOTINE 7 MG/24 HR TDSY TD SCH (09:09)
[2021-11-19] MEDS: FERROUS SULFATE 325 MG TAB PO SCH ×3 (09:09→20:50)
[2021-11-19] MEDS: PANTOprazole 40 MG TAB PO SCH ×2 (09:09→20:50)
[2021-11-19] MEDS: HEPARIN SOD 5,000 UNIT/0.5 ML VIAL SQ SCH ×2 (09:09→20:50)
[2021-11-19] MEDS: ASPIRIN 81 MG ECTAB PO SCH (09:10)
[2021-11-19] MEDS: ROSUVASTATIN CALCIUM 20 MG TAB PO SCH (09:10)
[2021-11-19] MEDS: UMECLIDINIUM/VILANTEROL 62.5/25MCG 7 PUFFS/INHALER INH SCH (09:10)
[2021-11-19] MEDS: DICLOFENAC SOD 1% GEL 100 GM TUBE EXT SCH ×4 (09:11→20:47)
[2021-11-19] MEDS: ACETAMINOPHEN 325 MG TAB PO SCH ×3 (09:14→20:47)
--- NOTE | 2021-11-19 11:16 | Hospitalist Progress Note ---
Date of Service November 19, 2021 Assessment & Plan (1) Gangrene of toe of right foot: Plan: 66 year old female pMHx PAD, HLD, COPD, current smoker, HTN, CVA, and chronic wound of the right foot admitted for worsening of infection of right foot and development of gangrene. Postop day 3 Right lower extremity [id number] amputation secondary to gangrene of right foot: Hx. R lower extremity ulcers and osteo with treatment with Bactrim. Extensive PAD history. Arterial Doppler showing findings compatible w/ critical stenosis. s/p Bactrim completed 11/11. - Vascular surgery consulted and following -routine postop care -Follow-up as an outpatient in 2 to 3 weeks for staple removal - Continue Plavix - Trend CBC -White count stable discontinued Zosyn today - Tramadol and tylenol PRN for pain -As needed morphine 4 mg nightly - PT/OT ordered Hypoxia with dyspnea, COPD (new diagnosis): Extensive history of smoking and atherosclerotic disease. CTA negative, Doppler US RLE negative for DVT. Spirometry 11/12- FEV1 0.86, FEV1/FVC 0.57. Meets GOLD criteria for airflow limitation of Stage 1 COPD. -Patient not usually on O2 at baseline. currently tolerating room air -prn O2 -Continue Anoro, albuterol PRN -Will obtain CXR if desaturation/respiratory distress/O2 requirement increases Tobacco abuse: - Long smoking history, most likely contributor to patient's vascular disease. - Continue nicotine patch Carotid artery disease: - History of left total occlusion s/p endarterectomy - On heparin SQ - Continue rosuvastatin, losartan, aspirin HTN: - Continue home losartan HLD: - Continue home rosuvastatin Hx of Anemia: - Hgb 9.6 on admission - currently stable - Trend CBC -HGB: stable Not vaccinated for COVID-19 Complicating process of rehab referral. FENa: Low-sodium Code Status: Full code DVT PPX: Heparin PT/OT: Consulted Case Management: Consulted referral placed potentially Sunday or Sunday Dispo: Pending evaluation by PT and OT, [facility] telemetry for now Admission and Anticipated Discharge Date Admission Date: November 08, 2021 Supervising Physician Co-Signing Physician Notes Ipersonally examined the patient and verified all finney points of history and exam, discussed case, and agree with decision making with Dr Cotter sleeping comfortably. no new issues noted vitals noted nad heent nc at mmm breathing unlabored no accessory muscles good effort. neuro no focal deficits at rest. gangrenous foot - now post AKA. PT/OT eval and treat - for SNF likely early next week PT/OT, anticipate need for SNF otherwise as above Subjective Daniela Renee was doing well this morning. She had 4/10 pain in her leg but denied any or complaints/concerns or questions this morning. Review of Systems Review of Systems: Constitutional: denies fevers, chills Cardiac: denies chest pain, palpitations Pulm.: denies cough, shortness of breath GI: denies nausea, vomiting, constipation, diarrhea Physical Exam Physical Exam: General: Sitting upright in no acute distress Cardiac: Regular rate and rhythm I do not appreciate any significant murmurs rubs or gallops nl S1 & S2 did not appreciate significant pedal edema. Respiratory: Clear to auscultation bilaterally GI: Soft, nontender, nondistended MSK: Endorsing pain in the right lower extremity. Skin: Amputated right lower extremity, wound site clean dry and intact. Results & Data Results & Data ([facility]) Vital Signs (Past 12 Hours) Vital Signs Temp Pulse Resp BP Pulse Ox 11/19/21 07:09 36.5 C 77 16 126/69 93
--- NOTE | 2021-11-19 17:50 | Billing Data ---
Date of Service November 19, 2021 Coding Level of Care Code 20341 Subseq Hosp Care Lvl 1
[2021-11-19] MEDS: oxyCODONE/ACETAMINOPHEN 10-325 TAB PO PRN (20:50)
[2021-11-20] MEDS: traMADol HCL 50 MG TABLET PO PRN (06:25)
[2021-11-20 06:48] LABS: Basophils # (auto) 0.06 K/uL (0-0.2); Basophils % (auto) 0.8 %; Eosinophils % (auto) 2.8 %; Hematocrit (blood only) 29.8 % (37-47); Hemoglobin 9.1 g/dL (12.0-16.0); Immature Granulocytes # (auto) 0.03 K/uL (0.00-0.02); Immature Granulocytes % (auto) 0.4 %; Lymphocytes # (auto) 1.25 K/uL (1.2-3.4); Lymphocytes % (auto) 17.3 %; Mean Corpuscular Hemoglobin 27.3 pg (25-34); Mean Corpuscular Hgb Conc 30.5 g/dL (32-36); Mean Corpuscular Volume 89.5 fL (80-100); Mean Platelet Volume 8.3 fL (7.4-10.4); Monocytes # (auto) 0.72 K/uL (0.11-0.59); Neutrophils # (auto) 4.95 K/uL (1.4-6.5); Neutrophils % (auto) 68.7 %; Platelet Count 542 K/uL (130-400); RDW Coefficient of Variation 16.5 % (11.5-14.5); RDW Standard Deviation 53.9 fL (36.4-46.3); Red Blood Count 3.33 M/uL (4.2-5.4); White Blood Count 7.21 K/uL (4.8-10.8)
[2021-11-20 07:17] LABS: BUN Creatinine Ratio 43.8 (10-20); Calcium 8.9 mg/dl (8.5-10.1); Creatinine Clr Calc Pharmacy 89.2 ml/min; Est GFR (African American) 120.1 ml/min; Est GFR (Non-African American) 103.7 ml/min; Potassium 3.6 mmol/L (3.5-5.1)
--- NOTE | 2021-11-20 08:22 | Hospitalist Progress Note ---
Date of Service November 20, 2021 Assessment & Plan (1) Gangrene of toe of right foot: Plan: 66 year old female pMHx PAD, HLD, COPD, current smoker, HTN, CVA, and chronic wound of the right foot admitted for worsening of infection of right foot and development of gangrene. s/p AKA -now POD#4 Right lower extremity [id number] amputation -secondary to gangrene of right foot -Hx. R lower extremity ulcers and osteo with treatment with Bactrim. -Extensive PAD history. Arterial Doppler showing findings compatible w/ critical stenosis. s/p Bactrim completed 11/11. -Vascular surgery consulted: follow-up as an outpatient in 2 to 3 weeks for staple removal - Continue Plavix - Trend CBC -White count stable discontinued Zosyn on 11/19 -Tylenol 650 TID scheduled -PRN Tramadol 50mg q6h, Oxycodone 10mg/325mg q12h, IV morphine 2mg q6h Hypoxia with dyspnea, COPD (new diagnosis): -Extensive history of smoking and atherosclerotic disease. -CTA negative -Doppler US RLE negative for DVT. -Spirometry 11/12- FEV1 0.86, FEV1/FVC 0.57. Meets GOLD criteria for airflow limitation of Stage 1 COPD. -Patient not usually on O2 at baseline. currently tolerating room air -Continue Anoro, albuterol PRN Tobacco abuse: -Long smoking history, most likely contributor to patient's vascular disease. -Continue nicotine patch Carotid artery disease: -History of left total occlusion s/p endarterectomy -On heparin SQ -Continue rosuvastatin, losartan, aspirin HTN: -Continue home losartan HLD: -Continue home rosuvastatin Hx of Anemia: -Hgb 9.6 on admission -Trend CBC -HGB: stable at this time Not vaccinated for COVID-19: Complicating process of rehab referral. Diet: Low-sodium Code Status: Full code DVT PPX: Heparin Admission and Anticipated Discharge Date Admission Date: November 08, 2021 Supervising Physician Co-Signing Physician Notes I personally examined the patient and verified all finney points of history and exa m, discussed case, and agree with decision making with Dr Szymanski a little bit of uncontrolled pain at stump, otherwise no complaints vitals noted nad heent nc at mmm breathing unlabored no accessory muscles good effort skin no rashes no pallor or icterus R stump incision c/d/i no erythema no dehiscence gangrenous foot -now post AKA -antibiotics are stopped -working on rehab stump pain -titrate medicine -continue supportive care -follow how she does otherwise as above Subjective Overnight had slight spike in the amount of pain that she was having. Is looking forward to having the chance to get out of the hospital. According to notes, patient is tentatively accepted to [facility] pending insurance auth. Review of Systems Review of Systems: All systems reviewed & are unremarkable except as noted in Subjective Physical Exam Constitutional: WD/WN, vitals as above Eyes: PERRL, conjunctivae normal, anicteric sclerae Respiratory: normal respiratory effort, lungs clear to auscultation Auscultation: no crackles, no rales, no rhonchi and no wheezes Cardiovascular: Rate/Rhythm: regular rate and regular rhythm Heart Sounds: no gallop, no murmur and no cardiac rub Gastrointestinal (Abdomen): Inspection/Auscultation: normal bowel sounds; abdomen not distended Percussion/Palpation: abdomen soft; abdomen nontender and no guarding Psychiatric: Orientation: alert and oriented x 3 Results & Data Results & Data ([facility]) Vital Signs (Past 12 Hours) Vital Signs Temp Pulse Resp BP Pulse Ox 11/20/21 07:23 36.7 C 76 16 146/71 H 92 11/19/21 22:55 36.9 C 71 16 144/71 H 92 Laboratory Results 11/20/21 11/20/21 Range/Units 06:18 06:18 WBC 7.21 (4.8-10.8) K/uL RBC 3.33 L (4.2-5.4) M/uL Hgb 9.1 L (12.0-16.0) g/dL Hct 29.8 L (37-47) % MCV 89.5 (80-100) fL MCH 27.3 (25-34) pg MCHC 30.5 L (32-36) g/dL RDW Std Deviation 53.9 H (36.4-46.3) fL RDW Coeff of Odette 16.5 H (11.5-14.5) % Plt Count 542 H (130-400) K/uL MPV 8.3 (7.4-10.4) fL Immature Gran % (Auto) 0.4 % Neut % (Auto) 68.7 % Lymph % (Auto) 17.3 % Jerauld % (Auto) 10.0 % Eos % (Auto) 2.8 % Baso % (Auto) 0.8 % Neut # (Auto) 4.95 (1.4-6.5) K/uL Lymph # (Auto) 1.25 (1.2-3.4) K/uL Jerauld # (Auto) 0.72 H (0.11-0.59) K/uL Eos # (Auto) 0.20 (0-0.5) K/uL Baso # (Auto) 0.06 (0-0.2) K/uL Immature Gran # (Auto) 0.03 H (0.00-0.02) K/uL Sodium 130 L (136-145) mmol/L Potassium 3.6 (3.5-5.1) mmol/L Chloride 100 (98-107) mmol/L Carbon Dioxide 29 (21-32) mmol/L Anion Gap 1 L (3-11) BUN 21 (6-23) mg/dl Creatinine 0.48 L (0.6-1.2) mg/dl Est Cr Clr Drug Dosing 89.2 ml/min Est GFR ( Amer) 120.1 ml/min Est GFR (Non-Af Amer) 103.7 ml/min BUN/Creatinine Ratio 43.8 H (10-20) Glucose 84 (70-99(Fasting)) mg/dl Calcium 8.9 (8.5-10.1) mg/dl Medications Administered Current Inpatient Medications Acetaminophen (Acetaminophen 325 Mg Tab) 650 mg PO TID [facility] Stop: 12/14/21 13:59 Last Admin: 11/20/21 13:33 Dose: 650 mg Documented by: Albuterol (Albuterol Hfa 8 Gm Inhaler) 2 puffs INH BID PRN PRN Reason: Wheezing Stop: 12/11/21 20:59 Aspirin (Aspirin 81 Mg Ectab) 81 mg PO QAM [facility] Stop: 12/09/21 08:59 Last Admin: 11/20/21 10:04 Dose: 81 mg Documented by: Carvedilol (Carvedilol 12.5 Mg Tab) 12.5 mg PO BID [facility] Stop: 12/08/21 20:59 Last Admin: 01/23/22 10:08 Dose: 12.5 mg Documented by: Clopidogrel Bisulfate (Clopidogrel Bisulfate 75 Mg Tab) [facility] [place] Stop: 12/12/21 08:59 Last Admin: 11/20/21 10:03 Dose: 75 mg Documented by: Diclofenac Sodium (Diclofenac Sod 1% Gel 100 Gm Tube) 4 gm EXT QID [facility] Stop: 12/11/21 16:59 Last Admin: 11/20/21 13:14 Dose: Not Given Documented by: Ferrous Sulfate (Ferrous Sulfate 325 Mg Tab) 325 mg PO TID [facility] Stop: 12/08/21 20:59 Last Admin: 11/20/21 13:33 Dose: 325 mg Documented by: Heparin Sodium (Porcine) (Heparin Sod 5,000 Unit/0.5 Ml Vial) 5,000 units SQ Q12 [facility] Stop: 12/08/21 20:59 Last Admin: 11/20/21 10:04 Dose: 5,000 units Documented by: Losartan Potassium (Losartan Potassium 50 Mg Tab) 50 mg PO [facility] Stop: 12/09/21 08:59 Last Admin: 11/20/21 10:04 Dose: 50 mg Documented by: Miscellaneous (Remove Nicoderm Patch) 1 ea N/A DAILY@0859 [facility] Stop: 12/11/21 08:58 Last Admin: 11/20/21 10:01 Dose: 1 ea Documented by: Morphine Sulfate (Morphine Sulfate 2 Mg/Ml Carp) 2 mg IV Q6 PRN PRN Reason: severe pain not controlled by other means Stop: 11/22/21 17:13 Last Admin: 11/18/21 08:08 Dose: 2 mg Documented by: Nicotine (Nicotine 7 Mg/24 Hr Tdsy) 7 mg TD [facility] Stop: 12/11/21 08:59 Last Admin: 11/20/21 10:03 Dose: 7 mg Documented by: Oxycodone/Acetaminophen (Oxycodone/Acetaminophen 10-325 Tab) 1 tab PO BID PRN PRN Reason: SEVERE pain (7,8,9,10) Stop: 12/02/21 10:46 Pantoprazole Sodium (Pantoprazole 40 Mg Tab) 40 mg PO BID [facility] Stop: 12/08/21 20:59 Last Admin: 11/20/21 10:02 Dose: 40 mg Documented by: Polyethylene Glycol (Polyethylene (Miralax) 17 Gm Pack) 17 gm PO DAILY PRN PRN Reason: Constipation Stop: 12/13/21 10:08 Last Admin: 11/13/21 10:26 Dose: 17 gm Documented by: Rosuvastatin Calcium (Rosuvastatin Calcium 20 Mg Tab) 20 mg PO QAM [facility] Stop: 12/09/21 08:59 Last Admin: 11/20/21 10:03 Dose: 20 mg Documented by: Tramadol HCl (Tramadol Hcl 50 Mg Tablet) 50 mg PO Q6H PRN PRN Reason: pain Stop: 12/08/21 18:12 Last Admin: 11/20/21 06:25 Dose: 50 mg Documented by: Umeclidinium/Vilanterol (Umeclidinium/Vilanterol 62.5/25mcg 7 Puffs/Inhaler) 1 puffs INH DAILY [facility] Stop: 12/13/21 11:14 Last Admin: 11/20/21 10:01 Dose: 1 puffs Documented by: Resident Activity Tracking Resident Involvement: Resident Care Provided Care Provided: Adult [facility] Medicine
[2021-11-20] MEDS: UMECLIDINIUM/VILANTEROL 62.5/25MCG 7 PUFFS/INHALER INH SCH (10:01)
[2021-11-20] MEDS: ACETAMINOPHEN 325 MG TAB PO SCH ×3 (10:02→19:59)
[2021-11-20] MEDS: PANTOprazole 40 MG TAB PO SCH ×2 (10:02→19:58)
[2021-11-20] MEDS: ROSUVASTATIN CALCIUM 20 MG TAB PO SCH (10:03)
[2021-11-20] MEDS: CLOPIDOGREL BISULFATE 75 MG TAB PO SCH (10:03)
[2021-11-20] MEDS: NICOTINE 7 MG/24 HR TDSY TD SCH (10:03)
[2021-11-20] MEDS: FERROUS SULFATE 325 MG TAB PO SCH ×3 (10:03→19:55)
[2021-11-20] MEDS: DICLOFENAC SOD 1% GEL 100 GM TUBE EXT SCH ×4 (10:04→19:55)
[2021-11-20] MEDS: ASPIRIN 81 MG ECTAB PO SCH (10:04)
[2021-11-20] MEDS: LOSARTAN POTASSIUM 50 MG TAB PO SCH (10:04)
[2021-11-20] MEDS: HEPARIN SOD 5,000 UNIT/0.5 ML VIAL SQ SCH ×2 (10:04→19:58)
[2021-11-20] MEDS: carvediloL 12.5 MG TAB PO SCH ×2 (10:08→19:58)
--- NOTE | 2021-11-20 15:37 | Billing Data ---
Date of Service November 20, 2021 Coding Level of Care Code 51683 Subseq Hosp Care Lvl 2
[2021-11-20] MEDS: oxyCODONE/ACETAMINOPHEN 10-325 TAB PO PRN (19:58)
[2021-11-21] MEDS: traMADol HCL 50 MG TABLET PO PRN (06:41)
--- NOTE | 2021-11-21 07:00 | Hospitalist Progress Note ---
Date of Service November 21, 2021 Assessment & Plan (1) Gangrene of toe of right foot: Plan: 66yo female with PAD, HLD, COPD, current smoker, HTN, CVA, and chronic wound of the right foot admitted for worsening of infection of right foot and development of gangrene, s/p AKA (11/16/21). Currently pending placement. Chronic wound of right foot with development of gangrene s/p AKA RLE reoee-[id number]-bvvp amputation (11/16/21) performed due to gangrene of right foot; procedure tolerated well In the setting of a history of RLE ulcers and osteomyelitis treated with bactrim (course completed 11/11/21) Course of zosyn completed (11/19/21); WBC stable since Extensive PAD history; arterial doppler findings compatible with critical stenosis Continue Plavix Pain control plan: APAP 650mg tid scheduled Mild pain: tramadol 50mg PO q6h prn Moderate pain: percocet 10mg/325mg q12h prn Severe pain: morphine IV 2mg Trend CBC Outpatient vascular surgery follow-up in 2-3 weeks for staple removal Dyspnea, hypoxia, newly-diagnosed COPD Extensive history of smoking and atherosclerotic disease CTA negative for PE, RLE dopple negative for DVT PFT (11/12): FEV1 0.86, FEV1/FVC 0.57 - meets GOLD criteria for airflow limitation of Stage 1 COPD Patient not usually on O2 at baseline; currently maintaining adequate oxygenation on room air Continue anoro, continue albuterol PRN Carotid artery disease History of left total occlusion s/p endarterectomy On heparin SQ Continue rosuvastatin, losartan, aspirin Repeat carotid doppler performed 11/21; read pending History of anemia Hgb 9.6 on admission Trend CBC; Hgb stable at this time Ferrous sulfate changed from 325mg PO bid to 325mg PO qMWF HTN Continue home losartan HLD Continue home rosuvastatin Tobacco abuse Long smoking history, likely a major contributor to patient's vascular disease Continue nicotine patch Disposition Patient not vaccinated for covid-19 which is complicating process of rehab referral Patient was [facility] but they would require her to pay her insurance deductible upfront ($3250) which patient cannot afford CM continuing to explore other options FEN: low-sodium diet Code status: full code DVT ppx: heparin sq Consults: vascular surgery PT/OT: ordered Case management: following Dispo: med/surg Admission and Anticipated Discharge Date Admission Date: November 08, 2021 Supervising Physician Co-Signing Physician Notes Patient seen and examined with PGY-2 Dr. Knapp. Agree with history, exam findings, assessment and plan of care as outlined. In brief, Ms. Renee is a 66 year old female with hx of PAD, HLD, COPD, tobacco user, HTN, CVA and chronic wound of the right foot admitted with worsening infection of the right foot and developing gangrene. No complaints. Feeling overall well. VS and nursing notes reviewed. Well appearing. Heart with regular rate and rhythm. Lungs are clear to auscultation. Right amputation stump is mildly tender, but no drainage. Dressing is in tact. Left lower extremity without edema. Labs and imaging reviewed. 1. Gangrene of right foot. Now s/p AKA on the right on 11/16. Continue Plavix. Pain control with Tylenol, tramadol, oxycodone, IV morphine. 2. Stage 1 COPD based on spirometry. Continue Anoro and albuterol PRN. 3. Tobacco user. Continue nicotine patch. 4. Carotid artery disease. Hx of left carotid occlusion s/p endarterectomy. Continue crestor, losartan, ASA. 5. HTN/HLD. Continue home losartan and crestor. 6. Anemia. Chronic. Stable. 7. COVID-19 not vaccinated. Complicating placement for rehab. Dispo: Awaiting SNF placement. Subjective Patient seen and evaluated at bedside this morning. No acute events overnight. Today patient feels well and only complains of some mild pain at her amputation site. No other symptoms at this time. Patient denies CP, SOB, abdominal pain, nausea, vomiting, lightheadedness, dizziness, and diarrhea. Review of Systems Review of Systems: See HPI Physical Exam Physical Exam: Constitutional: well-appearing, no acute distress HEENT: NCAT, no conjunctival injection, MMM CV: regular rhythm, no murmur appreciated, extremities well-perfused, no LE edema Resp: CTABL, no wheezes/rales/rhonchi appreciated, no increased work of breathing MSK: RLE above-knee amputation noted, dressing in place, CDI, mild tenderness of lateral aspect of amputation site Neuro: alert, oriented, no focal neurologic deficit appreciated Results & Data Results & Data ([facility]) Vital Signs (Past 12 Hours) Vital Signs Temp Pulse Resp BP Pulse Ox 11/20/21 22:50 36.6 C 74 17 118/65 94 Resident Activity Tracking Resident Involvement: Resident Care Provided Care Provided: Adult Hospital Medicine
[2021-11-21] MEDS: NICOTINE 7 MG/24 HR TDSY TD SCH (09:01)
[2021-11-21] MEDS: CLOPIDOGREL BISULFATE 75 MG TAB PO SCH (09:04)
[2021-11-21] MEDS: ASPIRIN 81 MG ECTAB PO SCH (09:04)
[2021-11-21] MEDS: ACETAMINOPHEN 325 MG TAB PO SCH ×3 (09:04→21:03)
[2021-11-21] MEDS: HEPARIN SOD 5,000 UNIT/0.5 ML VIAL SQ SCH ×2 (09:05→21:04)
[2021-11-21] MEDS: PANTOprazole 40 MG TAB PO SCH ×2 (09:05→21:04)
[2021-11-21] MEDS: carvediloL 12.5 MG TAB PO SCH ×2 (09:05→21:04)
[2021-11-21] MEDS: ROSUVASTATIN CALCIUM 20 MG TAB PO SCH (09:05)
[2021-11-21] MEDS: FERROUS SULFATE 325 MG TAB PO SCH ×2 (09:06→14:10)
[2021-11-21] MEDS: LOSARTAN POTASSIUM 50 MG TAB PO SCH (09:06)
[2021-11-21] MEDS: UMECLIDINIUM/VILANTEROL 62.5/25MCG 7 PUFFS/INHALER INH SCH (09:06)
[2021-11-21] MEDS: DICLOFENAC SOD 1% GEL 100 GM TUBE EXT SCH ×5 (09:07→21:07)
[2021-11-21] MEDS: oxyCODONE/ACETAMINOPHEN 10-325 TAB PO PRN (12:02)
--- NOTE | 2021-11-21 16:28 | Ultrasound Report ---
CAROTID ARTERY ULTRASOUND CLINICAL HISTORY: Carotid stenosis. Status post right carotid endarterectomy. COMPARISON STUDY: CTA of the neck May 24, 2021. TECHNIQUE: Real-time, grayscale, and color Doppler sonography of the carotid and vertebral arteries w as performed. Images were viewed in the transverse and longitudinal planes. FINDINGS: There is extensive atherosclerotic plaque. Velocity measurements are listed below. COMMON CAROTID PEAK SYSTOLIC VELOCITY (CM/S): RIGHT 91 ICA PEAK SYSTOLIC VELOCITY (CM/S): RIGHT 448 Systolic ratio between the right internal to common carotid artery is elevated at 4.9. As before, the left common carotid artery is occluded. There is trace flow within the cervical left i nternal carotid artery, as shown on prior CT. Antegrade flow is seen in the vertebral arteries. As before, there is evidence for severe stenosis of the right external carotid artery. Blood pressure in the right arm measured 151/67. Blood pressure in the left arm measured 148/69. IMPRESSION: 1. Significantly elevated velocities within the proximal to mid cervical right internal carotid arter y. The findings suggest greater than 70% stenosis by sonography. A CTA of the neck is recommended giv en that no stenosis was identified on CTA of May 24, 2021 and differentiation between the internal c arotid and external carotid artery is difficult on this exam. 2. Redemonstration of occlusion of the left common carotid artery with trace flow within the cervical left internal carotid artery, unchanged. 3. Severe stenosis of the proximal right external carotid artery. 4. Elevated blood pressure, as above. ACT 112: Negative or not required by law. Electronically signed by: Km Carey M.D. 11/21/2021 4:27 PM
[2021-11-22] MEDS: oxyCODONE/ACETAMINOPHEN 10-325 TAB PO PRN ×2 (02:16→15:46)
[2021-11-22 06:24] LABS: Basophils # (auto) 0.07 K/uL (0-0.2); Basophils % (auto) 0.8 %; Eosinophils # (auto) 0.18 K/uL (0-0.5); Hematocrit (blood only) 28.5 % (37-47); Hemoglobin 8.9 g/dL (12.0-16.0); Immature Granulocytes # (auto) 0.03 K/uL (0.00-0.02); Immature Granulocytes % (auto) 0.3 %; Lymphocytes # (auto) 1.18 K/uL (1.2-3.4); Lymphocytes % (auto) 13.3 %; Mean Corpuscular Hemoglobin 27.7 pg (25-34); Mean Corpuscular Hgb Conc 31.2 g/dL (32-36); Mean Corpuscular Volume 88.8 fL (80-100); Mean Platelet Volume 8.4 fL (7.4-10.4); Monocytes # (auto) 0.93 K/uL (0.11-0.59); Monocytes % (auto) 10.5 %; Neutrophils % (auto) 73.1 %; Platelet Count 497 K/uL (130-400); RDW Standard Deviation 54.6 fL (36.4-46.3); Red Blood Count 3.21 M/uL (4.2-5.4); White Blood Count 8.89 K/uL (4.8-10.8)
[2021-11-22 06:54] LABS: BUN Creatinine Ratio 42.2 (10-20); Calcium 8.8 mg/dl (8.5-10.1); Creatinine Clr Calc Pharmacy 95.1 ml/min; Est GFR (African American) 122.7 ml/min; Est GFR (Non-African American) 105.9 ml/min; Potassium 4.2 mmol/L (3.5-5.1)
[2021-11-22] MEDS: traMADol HCL 50 MG TABLET PO PRN ×2 (07:48→19:25)
--- NOTE | 2021-11-22 08:03 | Hospitalist Progress Note ---
Date of Service November 22, 2021 Assessment & Plan (1) Gangrene of toe of right foot: Plan: 66yo female with PAD, HLD, COPD, current smoker, HTN, CVA, and chronic wound of the right foot admitted for worsening of infection of right foot and development of gangrene, s/p AKA (11/16/21). Currently pending placement. Chronic wound of right foot with development of gangrene s/p AKA RLE guxzt-dwg-boev amputation (11/16/21) performed due to gangrene of right foot; procedure tolerated well In the setting of a history of RLE ulcers and osteomyelitis treated with bactrim (course completed 11/11/21) Course of zosyn completed (11/19/21); WBC stable since Extensive PAD history; arterial doppler findings compatible with critical stenosis Continue Plavix Pain control plan: APAP 650mg tid scheduled Mild pain: tramadol 50mg PO q6h prn Moderate pain: percocet 10mg/325mg q12h prn Severe pain: morphine IV 2mg Trend CBC Outpatient vascular surgery follow-up in 2-3 weeks for staple removal Dyspnea, hypoxia, newly-diagnosed COPD Extensive history of smoking and atherosclerotic disease CTA negative for PE, RLE dopple negative for DVT PFT (11/12): FEV1 0.86, FEV1/FVC 0.57 - meets GOLD criteria for airflow limitation of Stage 1 COPD Patient not usually on O2 at baseline; currently maintaining adequate oxygenation on room air Continue anoro, continue albuterol PRN Carotid artery disease History of left total occlusion s/p endarterectomy Neck CTA (11/22/21) shows: * Complete occlusion of the left common carotid artery with minimal reconstitute d flow in the distal internal carotid artery, unchanged. * Right carotid endarterectomy with luminal irregularity and slightly increased stenosis compared to prior exam. However, this does not appear to be hemodynamically significant. * Right external carotid artery near total occlusion, unchanged. Awaiting further information regarding vascular surgery's plan Continue heparin SQ Continue rosuvastatin, losartan, aspirin History of anemia Hgb 9.6 on admission Trend CBC; Hgb stable at this time Ferrous sulfate changed from 325mg PO bid to 325mg PO qMWF HTN Continue home losartan HLD Continue home rosuvastatin Tobacco abuse Long smoking history, likely a major contributor to patient's vascular disease Continue nicotine patch Disposition Patient not vaccinated for covid-19 which is complicating process of rehab referral Patient was accepted to [facility] but they would require her to pay her insurance deductible upfront ($3250) which patient cannot afford CM continuing to explore other options FEN: low-sodium diet Code status: full code DVT ppx: heparin sq Consults: vascular surgery PT/OT: ordered Case management: following Dispo: med/surg Admission and Anticipated Discharge Date Admission Date: November 08, 2021 Supervising Physician Co-Signing Physician Notes Patient seen and examined independently of PGY-2 Dr. Knapp. Agree with history, exam findings, assessment and plan of care as outlined. In brief, Ms. Renee is a 66 year old female with hx of PAD, HLD, COPD, tobacco user, HTN, CVA and chronic wound of the right foot admitted with worsening infection of the right foot and developing gangrene. Feeling well. Concerned about next steps regarding prosthesis and stump admitting interviewer. No chest pain, dyspnea. Some post-surgical pain, but manageable. VS and nursing notes reviewed. Well appearing. Heart with regular rate and rhythm. Lungs are clear to auscultation. Right amputation stump is mildly tender, but no drainage. Dressing is in tact. Left lower extremity without edema. Labs and imaging reviewed. 1. Gangrene of right foot. Now s/p AKA on the right on 11/16. Continue Plavix. Pain control with Tylenol, tramadol, oxycodone, IV morphine. 2. Carotid artery stenosis. Doppler yesterday with severe stenosis of the right external carotid; possible >70% stenosis of right ICA. Follow up CTA Neck with complete occlusion of the left common carotid artery; right carotid en darterectomy with luminal irregularity and slightly increased stenosis compared to prior exams; right external carotid artery with near total occlusion remains unchanged. Attempted to contact ordering provider (vascular surgery) without a response. 3. Stage 1 COPD based on spirometry. Continue Anoro and albuterol PRN. 4. Tobacco user. Continue nicotine patch. 5. Carotid artery disease. Hx of left carotid occlusion s/p endarterectomy. Continue crestor, losartan, ASA. 6. HTN/HLD. Continue home losartan and crestor. 7. Anemia. Chronic. Stable. 8. COVID-19 not vaccinated. Complicating placement for rehab. Dispo: Awaiting SNF placement. Subjective Patient seen and evaluated at bedside this morning. No acute events overnight. Today patient feels well and and denies LE pain at this time. No other symptoms at current. Patient denies CP, SOB, abdominal pain, nausea, vomiting, lightheadedness, dizziness, and diarrhea. Review of Systems Review of Systems: See HPI Physical Exam Physical Exam: Constitutional: well-appearing, no acute distress HEENT: NCAT, no conjunctival injection, MMM CV: regular rhythm, no murmur appreciated, extremities well-perfused, no LE edema Resp: CTABL, no wheezes/rales/rhonchi appreciated, no increased work of breathing MSK: RLE above-knee amputation noted, dressing in place, CDI, nontender Neuro: alert, oriented, no focal neurologic deficit appreciated Results & Data Results & Data ([facility]) Vital Signs (Past 12 Hours) Vital Signs Temp Pulse Resp BP Pulse Ox 11/22/21 07:19 36.4 C L 78 16 182/83 H 90 11/21/21 22:20 36.5 C 79 17 168/64 H 93 Resident Activity Tracking Resident Involvement: Resident Care Provided Care Provided: Adult Hospital Medicine
[2021-11-22] MEDS: FERROUS SULFATE 325 MG TAB PO SCH (08:58)
[2021-11-22] MEDS: ROSUVASTATIN CALCIUM 20 MG TAB PO SCH (08:59)
[2021-11-22] MEDS: ACETAMINOPHEN 325 MG TAB PO SCH ×3 (08:59→19:59)
[2021-11-22] MEDS: UMECLIDINIUM/VILANTEROL 62.5/25MCG 7 PUFFS/INHALER INH SCH (09:00)
[2021-11-22] MEDS: ASPIRIN 81 MG ECTAB PO SCH (09:00)
[2021-11-22] MEDS: LOSARTAN POTASSIUM 50 MG TAB PO SCH (09:00)
[2021-11-22] MEDS: carvediloL 12.5 MG TAB PO SCH ×2 (09:00→20:00)
[2021-11-22] MEDS: PANTOprazole 40 MG TAB PO SCH ×2 (09:00→20:00)
[2021-11-22] MEDS: CLOPIDOGREL BISULFATE 75 MG TAB PO SCH (09:00)
[2021-11-22] MEDS: NICOTINE 7 MG/24 HR TDSY TD SCH (09:01)
[2021-11-22] MEDS: DICLOFENAC SOD 1% GEL 100 GM TUBE EXT SCH ×4 (09:04→20:02)
[2021-11-22] MEDS: HEPARIN SOD 5,000 UNIT/0.5 ML VIAL SQ SCH ×2 (09:04→20:02)
[2021-11-22] MEDS ORDERED: OPTIRAY 320 125ml IV ONE (09:51)
--- NOTE | 2021-11-22 10:12 | CT Scan Report ---
CT angio neck with con CLINICAL HISTORY: carotid stenosis TECHNIQUE: CT angiography of the neck was performed following intravenous administration of iodinated contrast. Coronal and sagittal MIPS were obtained from the axial data set and were submitted for rev iew. Automated dose lowering techniques and/or adjustment according to patient size were utilized fo r this examination. All measurements were calculated based on NASCET criteria. Comparison: None available at the time of this dictation. FINDINGS: Emphysema is seen in the bilateral apices. CTA Neck: A 3 vessel aortic arch is shown. Atherosclerotic plaque is present in the aortic arch and at the origin of the great vessels. The vertebral arteries are patent. Again noted is near total occ lusion of the right external carotid artery just distal to the bifurcation and of the left common car otid artery near its origin on the aortic arch. Distal tiny reconstitution is seen in the left sports management internship al carotid artery. There is atherosclerosis in the right internal carotid artery which does not appea r to be hemodynamically significant. The vertebral arteries are codominant. IMPRESSION: 1. Complete occlusion of the left common carotid artery with minimal reconstituted flow in the dista l internal carotid artery, unchanged. 2. Right carotid endarterectomy with luminal irregularity and slightly increased stenosis compared t o prior exam. However, this does not appear to be hemodynamically significant. 3. Right external carotid artery near total occlusion, unchanged. Assessment of stenosis of the internal carotid arteries is based on NASCET criteria. ACT 112: Negative or not required by law. Electronically signed by: Ezra Queen M.D. 11/22/2021 10:11 AM
[2021-11-22] MEDS ORDERED: oxyCODONE HCL IR 5 MG TAB (IMMEDIATE RELEASE) PO STA (21:18)
[2021-11-23] MEDS: oxyCODONE/ACETAMINOPHEN 10-325 TAB PO PRN ×2 (00:53→14:14)
[2021-11-23 06:35] LABS: Basophils # (auto) 0.06 K/uL (0-0.2); Basophils % (auto) 0.9 %; Eosinophils % (auto) 2.9 %; Hematocrit (blood only) 27.4 % (37-47); Hemoglobin 8.3 g/dL (12.0-16.0); Immature Granulocytes # (auto) 0.02 K/uL (0.00-0.02); Immature Granulocytes % (auto) 0.3 %; Lymphocytes # (auto) 1.34 K/uL (1.2-3.4); Lymphocytes % (auto) 19.2 %; Mean Corpuscular Hemoglobin 27.1 pg (25-34); Mean Corpuscular Hgb Conc 30.3 g/dL (32-36); Mean Corpuscular Volume 89.5 fL (80-100); Mean Platelet Volume 8.4 fL (7.4-10.4); Monocytes # (auto) 0.74 K/uL (0.11-0.59); Monocytes % (auto) 10.6 %; Neutrophils # (auto) 4.62 K/uL (1.4-6.5); Neutrophils % (auto) 66.1 %; Platelet Count 523 K/uL (130-400); RDW Coefficient of Variation 17.4 % (11.5-14.5); RDW Standard Deviation 56.5 fL (36.4-46.3); Red Blood Count 3.06 M/uL (4.2-5.4); White Blood Count 6.98 K/uL (4.8-10.8)
--- NOTE | 2021-11-23 06:47 | Hospitalist Progress Note ---
Date of Service November 23, 2021 Assessment & Plan (1) Gangrene of toe of right foot: Plan: 66yo female with PAD, HLD, COPD, current smoker, HTN, CVA, and chronic wound of the right foot admitted for worsening of infection of right foot and development of gangrene, s/p AKA (11/16/21), now with development of left foot ischemia due to severe PAD. Left foot ischemia secondary to severe PAD Patient with development of new resting left foot pain with a few small but growing areas of ischemic necrosis Severe PAD with arterial occlusion seen on LLE doppler (11/23) Discussed with Dr. Dias who plans to take patient to OR for angiography on Sunday Continue medical management as noted below Chronic wound of right foot with development of gangrene s/p AKA RLE [id number] amputation (11/16/21) performed due to gangrene of right foot; procedure tolerated well In the setting of a history of RLE ulcers and osteomyelitis treated with bactrim (course completed 11/11/21) Course of zosyn completed (11/19/21); WBC stable since Extensive PAD history; arterial doppler findings compatible with critical stenosis Continue plavix, rosuvastatin Pain control plan: APAP 650mg tid scheduled Mild pain: tramadol 50mg PO q6h prn Moderate pain: percocet 10mg/325mg q12h prn Severe pain: morphine IV 2mg Trend CBC Outpatient vascular surgery follow-up in 2-3 weeks for staple removal Dyspnea, hypoxia, newly-diagnosed COPD Extensive history of smoking and atherosclerotic disease CTA negative for PE, RLE dopple negative for DVT PFT (11/12): FEV1 0.86, FEV1/FVC 0.57 - meets GOLD criteria for airflow limitation of Stage 1 COPD Patient not usually on O2 at baseline; currently maintaining adequate oxygenation on room air Continue anoro, continue albuterol PRN Carotid artery disease History of left total occlusion s/p endarterectomy Neck CTA (11/22/21) shows: * Complete occlusion of the left common carotid artery with minimal reconstituted flow in the distal internal carotid artery, unchanged. * Right carotid endarterectomy with luminal irregularity and slightly increased stenosis compared to prior exam. However, this does not appear to be hemodynamically significant. * Right external carotid artery near total occlusion, unchanged. Awaiting further information regarding vascular surgery's plan Continue heparin SQ Continue rosuvastatin, losartan, aspirin History of anemia Hgb 9.6 on admission Trend CBC; Hgb stable at this time Ferrous sulfate changed from 325mg PO bid to 325mg PO qMWF HTN Continue home losartan HLD Continue home rosuvastatin Tobacco abuse Long smoking history, likely a major contributor to patient's vascular disease Continue nicotine patch Disposition Patient not vaccinated for covid-19 which is complicating process of rehab referral Patient was accepted to [facility] but they would require her to pay her insurance deductible upfront ($[id number]) which patient cannot afford CM continuing to explore other options FEN: low-sodium diet Code status: full code DVT ppx: heparin sq Consults: vascular surgery PT/OT: ordered Case management: following Dispo: med/surg Admission and Anticipated Discharge Date Admission Date: November 08, 2021 Supervising Physician Co-Signing Physician Notes Patient seen and examined independently of PGY-2 Dr. Knapp. Agree with history, exam findings, assessment and plan of care as outlined. In brief, Ms. Renee is a 66 year old female with hx of PAD, HLD, COPD, tobacco user, HTN, CVA and chronic wound of the right foot admitted with worsening infection of the right foot and developing gangrene. Reports new left foot/toe pain. Has not had this type of pain in this foot in the past. This is similar to the type of pain she experienced when she first started having issues with the right foot. VS and nursing notes reviewed. Well appearing. Heart with regular rate and rhythm. Lungs are clear to auscultation. Right amputation stump is mildly tender, but no drainage. Dressing is in tact. Left foot with nonpalpable dorsalis pedis and posterior tibial pulses. Small black eschars over the distal great toe and 3rd toes. There is some skin breakdown and some eschar appearing material between the 4th and 5th digits. Toes are very sensitive even to light tough. Foot is warm. Non-cyanotic or dusky. Labs and imaging reviewed. 1. Gangrene of right foot. Now s/p AKA on the right on 11/16. Continue Plavix. Pain control with Tylenol, tramadol, oxycodone, IV morphine. 2. Left foot, ischemic disease. Enlarging eschars and new pain. Discussed case with both Dr. Baker (vascular surgery) and Dr. Dias (vascular/cardiology). Repeat arterial duplex today showed significant stenosis, monophasic waveforms; severe peripheral arterial disease with diminished HAMILTON. Plans for angiogram with Dr. Dias. 3. Carotid artery stenosis. Doppler yesterday with severe stenosis of the right external carotid; possible >70% stenosis of right ICA. Follow up CTA Neck with complete occlusion of the left common carotid artery; right carotid endarterectomy with luminal irregularity and slightly increased stenosis compared to prior exams; right external carotid artery with near total occlusion remains unchanged. Plans for outpatient intervention. 4. Stage 1 COPD based on spirometry. Continue Anoro and albuterol PRN. 5. Tobacco user. Continue nicotine patch. 6. Carotid artery disease. Hx of left carotid occlusion s/p endarterectomy. Continue crestor, losartan, ASA. 7. HTN/HLD. Continue home losartan and crestor. 8. Anemia. Chronic. Stable. 9. COVID-19 not vaccinated. Complicating placement for rehab. Dispo: pending work up/intervention of the left foot ischemia. Subjective Patient seen and evaluated at bedside this morning. No acute events overnight. Patient denies stump pain at this time but she does endorse new pain at rest of her left foot and toes. Notes new spots of black discoloration on her toes that she believes are growing. No other symptoms at current. Patient denies CP, SOB, abdominal pain, nausea, vomiting, lightheadedness, dizziness, and diarrhea. Review of Systems Review of Systems: See HPI Physical Exam Physical Exam: Constitutional: well-appearing, no acute distress HEENT: NCAT, no conjunctival injection, MMM CV: regular rhythm, no murmur appreciated, extremities well-perfused, no LE edema Resp: CTABL, no wheezes/rales/rhonchi appreciated, no increased work of breathing MSK: RLE above-knee amputation noted, dressing in place, CDI, nontender; left foot with a couple subcentimeter areas of black discoloration and ulceration, no active bleeding, no cyanosis Neuro: alert, oriented, no focal neurologic deficit appreciated Results & Data Results & Data ([facility]) Vital Signs (Past 12 Hours) Vital Signs Temp Pulse Pulse Resp BP Pulse Ox 11/22/21 22:52 36.6 C 74 15 134/58 L 94 11/22/21 19:58 79 112/61 Resident Activity Tracking Resident Involvement: Resident Care Provided Care Provided: Adult [facility]
[2021-11-23 06:52] LABS: BUN Creatinine Ratio 37.7 (10-20); Creatinine Clr Calc Pharmacy 80.8 ml/min; Est GFR (African American) 116.3 ml/min; Est GFR (Non-African American) 100.3 ml/min; Potassium 4.5 mmol/L (3.5-5.1)
[2021-11-23] MEDS: UMECLIDINIUM/VILANTEROL 62.5/25MCG 7 PUFFS/INHALER INH SCH (08:21)
[2021-11-23] MEDS: PANTOprazole 40 MG TAB PO SCH ×2 (08:22→20:38)
[2021-11-23] MEDS: ROSUVASTATIN CALCIUM 20 MG TAB PO SCH (08:22)
[2021-11-23] MEDS: DICLOFENAC SOD 1% GEL 100 GM TUBE EXT SCH ×4 (08:22→20:38)
[2021-11-23] MEDS: carvediloL 12.5 MG TAB PO SCH ×2 (08:22→20:37)
[2021-11-23] MEDS: ACETAMINOPHEN 325 MG TAB PO SCH ×3 (08:22→20:44)
[2021-11-23] MEDS: NICOTINE 7 MG/24 HR TDSY TD SCH (08:22)
[2021-11-23] MEDS: CLOPIDOGREL BISULFATE 75 MG TAB PO SCH (08:22)
[2021-11-23] MEDS: ASPIRIN 81 MG ECTAB PO SCH (08:22)
[2021-11-23] MEDS: LOSARTAN POTASSIUM 50 MG TAB PO SCH (08:22)
[2021-11-23] MEDS: HEPARIN SOD 5,000 UNIT/0.5 ML VIAL SQ SCH ×2 (08:23→20:37)
[2021-11-23 12:15] LABS: Hematocrit (blood only) 28.9 % (37-47); Hemoglobin 8.7 g/dL (12.0-16.0)
[2021-11-23] MEDS: traMADol HCL 50 MG TABLET PO PRN ×2 (12:46→20:44)
--- NOTE | 2021-11-23 16:18 | Ultrasound Report ---
US arterial duplex LE LT CLINICAL HISTORY: foot/toe pain known PAD TECHNIQUE: Real-time grayscale and color and spectral Doppler ultrasound imaging of the bilateral low er extremity arteries was performed. Measurements calculated based on NASCET criteria. COMPARISON: None available at the time of this dictation. FINDINGS: LEFT: Common femoral artery: Monophasic waveforms. Peak systolic velocity (PSV) 446 cm/s. Marked atheroscle rotic disease is seen at this level. Deep femoral artery: Monophasic waveforms. PSV 79 cm/s. Superficial femoral artery: Monophasic waveforms. PSV 223 cm/s. Popliteal artery: Monophasic waveforms. PSV 41 cm/s. Anterior tibial artery: Monophasic waveforms. PSV 27 cm/s. Posterior tibial artery: Monophasic waveforms. PSV 25 cm/s. Peroneal artery: Monophasic waveforms. PSV 33 cm/s. Dorsalis pedis: No flow seen. ANKLE/BRACHIAL INDEX (HAMILTON): Brachial: Right: 131 mmHg. Left: 139 mmHg. Ankle (dorsalis pedis): No detectable flow Ankle (posterior tibial): Left: 54 mmHg. Ankle/brachial index: Left: 0.39. Reference ranges: Normal Ankle/Brachial Index (HAMILTON) 1.0-1.4; 0.91-0.99 borderline; < or = 0.9 abnormal (0.7-0.89 mild, 0.51-0.69 moderate, < or = 0.5 severe peripheral arterial disease). Normal Toe/Brachial Index (TBI) > or = 0.6; < 0.6 abnormal (0.34-0.59 mild, 0.12-0.34 moderate, < or = 0.11 severe peripheral arterial disease). IMPRESSION: 1. Hemodynamically significant stenosis. Monophasic waveforms in the lower extremity with markedly e levated velocities in the common femoral artery and decreased velocities distally. 2. Severe peripheral arterial disease with diminished left ankle brachial index. ACT 112: Negative or not required by law. Electronically signed by: Ezra Queen M.D. 11/23/2021 4:17 PM
--- NOTE | 2021-11-23 16:29 | Vascular Medicine Consultation ---
Date of Consultation November 23, 2021 Assessment & Plan (1) PAD (peripheral artery disease): 2. Post RT AKA 3 Perforated duodenal ulcer post surgical repair 4. COPD 5. Anemia 6. Carotid artery stenosis --right CEA, left carotid occlusion 7. Prior CVA 8. Anemia Ultrasound today shows severe proximal/mid TAFE LECTURER disease, severe mid SFA and likely severe tibial artery disease with occluded DPA (PT HAMILTON 0.39, TP flat). Patient now with ischemic rest pain in her left foot. Minimal tissue loss, no signs of infection. Recommend proceeding with left lower extremity angiogram. We will tentatively schedule for Sunday. With her prior vascular surgeries with Dr. Baker recommend long-term follow-up with him for all of her vascular issues. History of Present Illness Attending Physician: Krystle Aparicio DO History of Present Illness Mrs. 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 Seen today due to concern for now left lower extremity critical ischemia. Complicated past medical history with duodenal ulcer, COPD, ongoing tobacco use, hypertension, and complex hospitalizations in summer of 2020 where underwent right CEA for symptomatic carotid complicated by intraoperative sinus arrest and post procedure left frontal CVA with mild hemorrhage followed by hospitalization for recurrent stroke. Patient endorsed new rest pain involving her left foot over the last 2 days. TBI today showed flat toe pressure. Allergies Allergy/AdvReac Type Severity Reaction Status Date / Time No Known Allergies Allergy Mild Verified 11/08/21 15:21 Home Medications Medication Instructions Recorded Confirmed Type aspirin 81 mg tablet,delayed 81 mg PO QAM #90 tab 06/22/21 11/08/21 Rx release carvedilol 12.5 mg tablet (Coreg) 12.5 mg PO BID 07/20/21 11/08/21 History thiamine HCl (vitamin B1) 100 mg 100 mg PO QAM 07/20/21 11/08/21 History tablet losartan 50 mg tablet 50 mg PO QAM 09/08/21 11/08/21 History umeclidinium 62.5 mcg-vilanterol 1 inh INHALATION DAILY PRN 09/08/21 11/08/21 History 25 mcg/actuation powdr for inhalation (Anoro Ellipta) ferrous sulfate 325 mg (65 mg 325 mg PO TID #90 tab 09/13/21 11/08/21 Rx iron) tablet pantoprazole 40 mg tablet,delayed 40 mg PO BID #60 tab 09/13/21 11/08/21 Rx release (Protonix) clopidogrel 75 mg tablet 75 mg PO QAM #30 tab 10/14/21 11/08/21 Rx rosuvastatin 20 mg tablet (Crestor) 20 mg PO QAM #30 tab 10/14/21 11/08/21 Rx tramadol 50 mg tablet 50 mg PO Q6H PRN #60 tab 10/27/21 11/08/21 Rx acetaminophen 325 mg tablet 650 mg PO Q4H PRN 11/08/21 11/08/21 History Patient History Medical History Acute CVA (cerebrovascular accident) (~04/2021) Carotid artery disease GERD (gastroesophageal reflux disease) UNDER CONTROL History of CVA (cerebrovascular accident) (04/2021) Hypertension Ischemic ulcer of right foot Follows with Wound [facility] Left renal mass Left side- per 04/15/21 MRI= 1.6 x 1.0 cm or slightly exophytic focus within the lateral aspect of the left kidney.- worrisome for RCC per records- pt will follow up as outpatient. pt unaware PAD (peripheral artery disease) S/p stent to right LE February 2021 with [facility] Bilateral iliac artery stenosis Rectal mass pt unaware. Tobacco abuse Vasculopathy Surgical History (Updated 11/18/21 @ 09:15 by Mony Shahid PA-C) H/O carotid endarterectomy 30-40 sec chest compressions required during surgery for asystole - possible prior much shorter vagal episode in past as well H/O exploratory laparotomy (01/22/21) Exploratory laparotomy, oversew perforated duodenal ulcer, abdominal washout. Dr. 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 Lung cancer PAD (peripheral artery disease) Denies family history of Ovarian cancer Prostate cancer Myocardial infarction Breast cancer Colorectal cancer Social History Smoking Status: Current every day smoker Tobacco Type: Cigarettes Age Started Using Tobacco: 27; packs per day: 1; Cigarettes Per Day: 20 per day; Second Hand Exposure: Yes; Hx Alcohol Use: Yes Alcohol type: beer Alcohol Intake Frequency: 4 or More x pe r/Week Alcohol Intake Frequency Comment: 2-3 beers daily or more Hx Substance Use: No Preferred Language: Chinese Communication Ability: Effective Visual Impairment: Limited Hearing Ability: Normal Literacy Education Professor Required: No Beliefs That Will Affect Care: None marital status: Current Living Situation: Spouse current occupational status: employed current occupation: [employer] How many Children do You have: 2 Feels Safe at Home: Yes Childhood Exposure to Second-Hand Smoke: Yes caffeine: Yes during the past year weight has: remained stable Dental Care, Regularly: No Physical Activity Frequency: Does not Exercise Physical Activity Frequency Comment: on feet at work all day Seatbelt Use: always Sunscreen Use: No Assistive Devices: None Review of Systems Review of Systems: All systems reviewed & are unremarkable except as noted in HPI & below Physical Exam Physical Exam: General: Thin, no acute distress, comfortable Lungs: Clear anteriorly Cardiac: Regular rate and rhythm Abdomen: Soft, nontender Psych: Alert and oriented Extremities/Vascular: Post AKA, incision dressed. No surrounding erythema/induration. --Left foot non-palpable DP/PT --Small areas of black eschar over distal tip of first/third digits --No edema Results & Data ([facility]) Vital Signs (Past 12 Hours) Vital Signs Temp Pulse Resp BP Pulse Ox 11/23/21 07:16 97.2 F L 77 16 143/65 H 92 PG Care Time/CCT Total # of Minutes Spent Total Time Spent with Patient: Total time spent is greater than 50% in coordination of care (as documented) at patient's floor/unit and/or counseling patient: Coding Level of Care Code 36974 Inpt Consult Level 4 Diagnoses PAD (peripheral artery disease) I73.9
[2021-11-24] MEDS: oxyCODONE/ACETAMINOPHEN 10-325 TAB PO PRN (03:42)
[2021-11-24] MEDS: traMADol HCL 50 MG TABLET PO PRN ×3 (07:08→22:42)
--- NOTE | 2021-11-24 07:52 | Hospitalist Progress Note ---
Date of Service November 24, 2021 Assessment & Plan (1) Gangrene of toe of right foot: Plan: 66yo female with PAD, HLD, COPD, current smoker, HTN, CVA, and chronic wound of the right foot admitted for worsening of infection of right foot and development of gangrene, s/p AKA (11/16/21), now with development of left foot ischemia due to severe PAD. Left foot ischemia secondary to severe PAD: - Patient with development of new resting left foot pain with a few small but growing areas of ischemic necrosis - Severe PAD with arterial occlusion seen on LLE doppler (11/23) - Discussed with Dr. Dias who plans to take patient to angiography tomorrow (11/25); NPO at midnight - Continue medical management as noted below Chronic wound of right foot with development of gangrene s/p AKA: - RLE [id number] amputation (11/16/21) performed due to gangrene of right foot; procedure tolerated well - In the setting of a history of RLE ulcers and osteomyelitis treated with bactrim (course completed 11/11/21) - Course of zosyn completed (11/19/21); WBC stable since - Extensive PAD history; arterial doppler findings compatible with critical stenosis - Continue plavix, rosuvastatin - Pain control plan: - Oxycodone 10mg Q6h scheduled - Mild pain: tramadol 50mg PO q6h prn - Severe pain: morphine IV 2mg - Trend CBC - Outpatient vascular surgery follow-up in 2-3 weeks for staple removal Dyspnea, hypoxia, newly-diagnosed COPD: - Extensive history of smoking and atherosclerotic disease - CTA negative for PE, RLE dopple negative for DVT - PFT (11/12): FEV1 0.86, FEV1/FVC 0.57 - meets GOLD criteria for airflow limitation of Stage 1 COPD - Patient not usually on O2 at baseline; currently maintaining adequate oxygenation on room air - Continue anoro, continue albuterol PRN Carotid artery disease: - History of left total occlusion s/p endarterectomy - Neck CTA (11/22/21) shows: * Complete occlusion of the left common carotid artery with minimal reconstituted flow in the distal internal carotid artery, unchanged. * Right carotid endarterectomy with luminal irregularity and slightly increased stenosis compared to prior exam. However, this does not appear to be hemodynamically significant. * Right external carotid artery near total occlusion, unchanged. - Continue heparin SQ - Continue rosuvastatin, losartan, aspirin History of anemia - Hgb 9.6 on admission - Trend CBC; Hgb stable at this time - Ferrous sulfate changed from 325mg PO bid to 325mg PO qMWF HTN: - Continue home losartan HLD: - Continue home rosuvastatin Tobacco abuse: - Long smoking history, likely a major contributor to patient's vascular disease - Continue nicotine patch Disposition: - Patient not vaccinated for covid-19 which is complicating process of rehab referral - Patient was accepted to [facility] but they would require her to pay her insurance deductible upfront ($3250) which patient cannot afford - CM continuing to explore other options FEN: low-sodium diet, NPO @ Midnight Code status: full code DVT ppx: heparin sq Dispo: med/surg (2) S/P above knee amputation: (3) PAD (peripheral artery disease): (4) Hypertension: (5) Tobacco abuse: (6) Ischemic ulcer of left foot: Admission and Anticipated Discharge Date Admission Date: November 08, 2021 Supervising Physician Co-Signing Physician Notes Patient seen and examined independently of PGY-3, Dr. Szymanski. Agree with history, exam findings, assessment and plan of care as outlined. In brief, Ms. Renee is a 66 year old female with hx of PAD, HLD, COPD, tobacco user, HTN, CVA and chronic wound of the right foot admitted with worsening infection of the right foot and developing gangrene. Continues to have pain in the great toe and 4th toe. Reports that the pain medication is helpful. Spoke with nursing regarding painpatient seems to be in quite a bit of pain when she does ask for pain medications. No chest pain, dyspnea. VS and nursing notes reviewed. Well appearing. Heart with regular rate and rhythm. Lungs are clear to auscultation. Right amputation stump area is in tact, dressing is clean/dry/in tact. Left foot with nonpalpable dorsalis pedis and posterior tibial pulses. Small black eschars over the distal great toe and 4th toes. There is some skin breakdown and some eschar appearing material between the 4th and 5th digits. Toes are very sensitive even to light tough. Foot is warm. Not cyanotic or dusky. Labs and imaging reviewed. 1. Gangrene of right foot. Now s/p AKA on the right on 11/16. Continue Plavix. Pain control with tramadol, Increased Oxycodone/Acetaminophen frequency to q6h. 2. Left foot, ischemic disease. Enlarging eschars and ischemic pain at rest. Discussed case with both Dr. Baker (vascular surgery) and Dr. Dias (vascular/cardiology). Repeat arterial duplex today showed significant stenosis, monophasic waveforms; severe peripheral arterial disease with diminished HAMILTON. Plans for angiogram with Dr. Dias tomorrow. 3. Carotid artery stenosis. Doppler yesterday with severe stenosis of the right external carotid; possible >70% stenosis of right ICA. Follow up CTA Neck with complete occlusion of the left common carotid artery; right carotid endarterectomy with luminal irregularity and slightly increased stenosis compared to prior exams; right external carotid artery with near total occlusion remains unchanged. Plans for outpatient intervention. 4. Stage 1 COPD based on spirometry. Continue Anoro and albuterol PRN. 5. Tobacco user. Continue nicotine patch. 6. Carotid artery disease. Hx of left carotid occlusion s/p endarterectomy. Continue crestor, losartan, ASA. 7. HTN/HLD. Continue home losartan and crestor. 8. Anemia. Chronic. Stable. 9. COVID-19 not vaccinated. Complicating placement for rehab. Dispo: pending work up/intervention of the left foot ischemia. Subjective Patient endorses increased foot pain over the left foot, is nervous about the pending procedure tomorrow and the fact that she could need to have another limb amputated if things are not re-assuring. Review of Systems Review of Systems: All systems reviewed & are unremarkable except as noted in Subjective Physical Exam Constitutional: WD/WN, vitals as above Eyes: PERRL, conjunctivae normal, anicteric sclerae Respiratory: normal respiratory effort, lungs clear to auscultation Auscultation: no crackles, no rales, no rhonchi and no wheezes Cardiovascular: Rate/Rhythm: regular rate and regular rhythm Heart Sounds: no gallop, no murmur and no cardiac rub absent DP/PT pulses on left foot Gastrointestinal (Abdomen): Inspection/Auscultation: normal bowel sounds; abdomen not distended Percussion/Palpation: abdomen soft; abdomen nontender and no guarding Skin: small eschars over left foot most notable over first and third toes Psychiatric: Orientation: alert and oriented x 3 Results & Data Results & Data ([facility]) Vital Signs (Past 12 Hours) Vital Signs Temp Pulse Resp BP Pulse Ox 11/23/21 20:39 36.6 C 81 14 116/57 L 93 Laboratory Results 11/23/21 Range/Units 11:57 Hgb 8.7 L (12.0-16.0) g/dL Hct 28.9 L (37-47) % Medications Administered Current Inpatient Medications Acetaminophen (Acetaminophen 325 Mg Tab) 650 mg PO TID [facility] Stop: 12/14/21 13:59 Last Admin: 11/23/21 20:44 Dose: 650 mg Documented by: Albuterol (Albuterol Hfa 8 Gm Inhaler) 2 puffs INH BID PRN PRN Reason: Wheezing Stop: 12/11/21 20:59 Aspirin (Aspirin 81 Mg Ectab) 81 mg PO QAM [facility] Stop: 12/09/21 08:59 Last Admin: 11/23/21 08:22 Dose: 81 mg Documented by: Carvedilol (Carvedilol 12.5 Mg Tab) 12.5 mg PO BID [facility] Stop: 12/08/21 20:59 Last Admin: 11/23/21 20:37 Dose: 12.5 mg Documented by: Clopidogrel Bisulfate (Clopidogrel Bisulfate 75 Mg Tab) 75 mg PO QAM [facility] Stop: 12/12/21 08:59 Last Admin: 11/23/21 08:22 Dose: 75 mg Documented by: Diclofenac Sodium (Diclofenac Sod 1% Gel 100 Gm Tube) 4 gm EXT QID [facility] Stop: 12/11/21 16:59 Last Admin: 11/23/21 20:38 Dose: Not Given Documented by: Ferrous Sulfate (Ferrous Sulfate 325 Mg Tab) 325 mg PO Q48H [facility] Stop: 12/23/21 08:59 Last Admin: 11/22/21 08:58 Dose: 325 mg Documented by: Heparin Sodium (Porcine) (Heparin Sod 5,000 Unit/0.5 Ml Vial) 5,000 units SQ Q12 [facility] Stop: 12/08/21 20:59 Last Admin: 11/23/21 20:37 Dose: Not Given Documented by: Losartan Potassium (Losartan Potassium 50 Mg Tab) 50 mg PO QAM [facility] Stop: 12/09/21 08:59 Last Admin: 11/23/21 08:22 Dose: 50 mg Documented by: Miscellaneous (Remove Nicoderm Patch) 1 ea N/A DAILY@0859 [facility] Stop: 12/11/21 08:58 Last Admin: 11/23/21 08:23 Dose: 1 ea Documented by: Nicotine (Nicotine 7 Mg/24 Hr Tdsy) 7 mg TD QAM [facility] Stop: 12/11/21 08:59 Last Admin: 11/23/21 08:22 Dose: 7 mg Documented by: Oxycodone/Acetaminophen (Oxycodone/Acetaminophen 10-325 Tab) 1 tab PO BID PRN PRN Reason: SEVERE pain (7,8,9,10) Stop: 12/02/21 10:46 Last Admin: 11/24/21 03:42 Dose: 1 tab Documented by: Pantoprazole Sodium (Pantoprazole 40 Mg Tab) 40 mg PO BID [facility] Stop: 12/08/21 20:59 Last Admin: 11/23/21 20:38 Dose: 40 mg Documented by: Polyethylene Glycol (Polyethylene (Miralax) 17 Gm Pack) 17 gm PO DAILY PRN PRN Reason: Constipation Stop: 12/13/21 10:08 Last Admin: 11/13/21 10:26 Dose: 17 gm Documented by: Rosuvastatin Calcium (Rosuvastatin Calcium 20 Mg Tab) 20 mg PO QAM [facility] Stop: 12/09/21 08:59 Last Admin: 11/23/21 08:22 Dose: 20 mg Documented by: Tramadol HCl (Tramadol Hcl 50 Mg Tablet) 50 mg PO Q6H PRN PRN Reason: pain Stop: 12/08/21 18:12 Last Admin: 11/24/21 07:08 Dose: 50 mg Documented by: Umeclidinium/Vilanterol (Umeclidinium/Vilanterol 62.5/25mcg 7 Puffs/Inhaler) 1 puffs INH DAILY [facility] Stop: 12/13/21 11:14 Last Admin: 11/23/21 08:21 Dose: 1 puffs Documented by: Resident Activity Tracking Resident Involvement: Resident Care Provided Care Provided: Adult Hospital Medicine
[2021-11-24] MEDS: NICOTINE 7 MG/24 HR TDSY TD SCH (08:07)
[2021-11-24] MEDS: DICLOFENAC SOD 1% GEL 100 GM TUBE EXT SCH ×5 (08:07→20:56)
[2021-11-24] MEDS: UMECLIDINIUM/VILANTEROL 62.5/25MCG 7 PUFFS/INHALER INH SCH (08:07)
[2021-11-24] MEDS: FERROUS SULFATE 325 MG TAB PO SCH (08:07)
[2021-11-24] MEDS: CLOPIDOGREL BISULFATE 75 MG TAB PO SCH (08:08)
[2021-11-24] MEDS: ASPIRIN 81 MG ECTAB PO SCH (08:08)
[2021-11-24] MEDS: carvediloL 12.5 MG TAB PO SCH ×2 (08:08→20:54)
[2021-11-24] MEDS: ROSUVASTATIN CALCIUM 20 MG TAB PO SCH (08:08)
[2021-11-24] MEDS: LOSARTAN POTASSIUM 50 MG TAB PO SCH (08:08)
[2021-11-24] MEDS: PANTOprazole 40 MG TAB PO SCH ×2 (08:08→20:54)
[2021-11-24] MEDS: HEPARIN SOD 5,000 UNIT/0.5 ML VIAL SQ SCH ×3 (08:08→20:58)
[2021-11-24] MEDS: ACETAMINOPHEN 325 MG TAB PO SCH ×2 (08:13→13:40)
[2021-11-24 08:16] LABS: Basophils # (auto) 0.04 K/uL (0-0.2); Basophils % (auto) 0.6 %; Eosinophils % (auto) 2.9 %; Hemoglobin 8.5 g/dL (12.0-16.0); Immature Granulocytes # (auto) 0.02 K/uL (0.00-0.02); Immature Granulocytes % (auto) 0.3 %; Lymphocytes # (auto) 1.08 K/uL (1.2-3.4); Lymphocytes % (auto) 15.5 %; Mean Corpuscular Hemoglobin 27.4 pg (25-34); Mean Corpuscular Hgb Conc 30.4 g/dL (32-36); Mean Corpuscular Volume 90.3 fL (80-100); Mean Platelet Volume 7.9 fL (7.4-10.4); Monocytes # (auto) 0.86 K/uL (0.11-0.59); Monocytes % (auto) 12.4 %; Neutrophils # (auto) 4.76 K/uL (1.4-6.5); Neutrophils % (auto) 68.3 %; Platelet Count 470 K/uL (130-400); RDW Coefficient of Variation 17.5 % (11.5-14.5); RDW Standard Deviation 56.7 fL (36.4-46.3); White Blood Count 6.96 K/uL (4.8-10.8)
[2021-11-24 08:39] LABS: BUN Creatinine Ratio 46.9 (10-20); Creatinine Clr Calc Pharmacy 87.3 ml/min; Est GFR (African American) 119.3 ml/min; Potassium 4.4 mmol/L (3.5-5.1)
--- NOTE | 2021-11-24 09:30 | Vascular Medicine ProgressNote ---
Date of Service November 24, 2021 Assessment & Plan (1) PAD (peripheral artery disease): Plan: 2. Post RT AKA 3 Perforated duodenal ulcer post surgical repair 4. COPD 5. Anemia 6. Carotid artery stenosis --right CEA, left carotid occlusion 7. Prior CVA 8. Anemia Plan is for angiogram with likely intervention to proximal RN FIELD, mid SFA disease tomorrow. N.p.o. after midnight. Procedure likely late morning. Continue current DAPT with aspirin, clopidogrel uninterrupted. Continue current antihypertensives, statin. With her prior vascular surgeries with Dr. Baker recommend long-term follow-up with him for all of her vascular issues. Admission and Anticipated Discharge Date Admission Date: November 08, 2021 Subjective Feeling okay this morning, sitting up eating breakfast. Mild pain at right AKA site. Minimal residual pain in left foot primarily involving great toe. No other new concerns today Review of Systems Review of Systems: All systems reviewed & are unremarkable except as noted in HPI & below Physical Exam Physical Exam: General: Thin, no acute distress, comfortable Lungs: Clear anteriorly Cardiac: Regular rate and rhythm Abdomen: Soft, nontender Psych: Alert and oriented Extremities/Vascular: Post AKA, incision dressed. No surrounding erythema/induration. --Left foot non-palpable DP/PT --Small areas of black eschar over distal tip of first/third digits. Sluggish capillary refill --No edema Results & Data ([facility]) Vital Signs (Past 12 Hours) Vital Signs Temp Pulse Resp BP Pulse Ox 11/24/21 07:57 97.7 F 78 16 174/67 H 95 PG Care Time/CCT Total # of Minutes Spent Total Time Spent with Patient: Total time spent is greater than 50% in coordination of care (as documented) at patient's floor/unit and/or counseling patient: Coding Level of Care Code 26683 Subseq Hosp Care Lvl 2 Diagnoses PAD (peripheral artery disease) I73.9
[2021-11-24] MEDS: oxyCODONE/ACETAMINOPHEN 10-325 TAB PO SCH ×2 (13:01→18:21)
[2021-11-25] MEDS: oxyCODONE/ACETAMINOPHEN 10-325 TAB PO SCH ×4 (01:01→17:53)
[2021-11-25 06:03] LABS: Basophils # (auto) 0.06 K/uL (0-0.2); Basophils % (auto) 0.8 %; Eosinophils # (auto) 0.15 K/uL (0-0.5); Eosinophils % (auto) 2.1 %; Hematocrit (blood only) 28.2 % (37-47); Hemoglobin 8.5 g/dL (12.0-16.0); Immature Granulocytes # (auto) 0.01 K/uL (0.00-0.02); Immature Granulocytes % (auto) 0.1 %; Lymphocytes # (auto) 1.43 K/uL (1.2-3.4); Lymphocytes % (auto) 19.9 %; Mean Corpuscular Hemoglobin 27.1 pg (25-34); Mean Corpuscular Hgb Conc 30.1 g/dL (32-36); Mean Corpuscular Volume 89.8 fL (80-100); Monocytes # (auto) 0.67 K/uL (0.11-0.59); Monocytes % (auto) 9.3 %; Neutrophils # (auto) 4.88 K/uL (1.4-6.5); Neutrophils % (auto) 67.8 %; Platelet Count 439 K/uL (130-400); RDW Coefficient of Variation 17.9 % (11.5-14.5); RDW Standard Deviation 58.5 fL (36.4-46.3); Red Blood Count 3.14 M/uL (4.2-5.4)
[2021-11-25 06:47] LABS: BUN Creatinine Ratio 60.8 (10-20); Creatinine Clr Calc Pharmacy 83.9 ml/min; Est GFR (African American) 117.8 ml/min; Est GFR (Non-African American) 101.6 ml/min; Potassium 4.3 mmol/L (3.5-5.1)
[2021-11-25] MEDS ORDERED: niCARdipine HCL INJ 2.5 MG/ML 10 ML AMP ONE ×2 (06:50→11:06)
[2021-11-25] MEDS ORDERED: HEPARIN (PORCINE) 1000 UNIT/ML 10 ML (CATH LAB USE ONLY) ONE (06:50)
[2021-11-25] MEDS ORDERED: fentaNYL citrate 100 MCG/2 ML VIAL ONE ×5 (06:51→13:26)
[2021-11-25] MEDS ORDERED: MIDAZOLAM HCL 1 MG/ML 2ML VIAL ONE ×3 (06:51→11:06)
[2021-11-25] MEDS ORDERED: NITROGLYCERIN/D5W 100MCG/ML 20ML SYR ONE ×2 (06:52→11:08)
--- NOTE | 2021-11-25 07:45 | Pre Anesthesia Assessment ---
Date of Service November 25, 2021 Pre Sedation Assessment Vital Signs Temp Pulse Pulse Resp BP Pulse Ox 11/25/21 07:13 78 17 169/83 H 92 11/25/21 06:52 97.9 F 76 18 155/69 H 94 11/24/21 23:21 97.7 F 79 18 116/54 L 91 11/24/21 20:48 82 128/68 11/24/21 14:15 97.9 F 82 16 90/55 L 91 11/24/21 07:57 97.7 F 78 16 174/67 H 95 Cardiovascular RRR, no murmur, no edema Respiratory normal respiratory effort, lungs clear to auscultation Pre-Sedation Airway Assessment Smoking Status: Current every day smoker Hx Sleep Apnea: No Hx Difficult Intubation: No Short, Thick Neck: No Thyromental Distance: > or= 3.5 Finger Breadths Oral Cavity: + Dentures Mallampati Class: III ASA: ASA3 NPO Status Date of Last Intake of Fluids: 11/24/21 Date of Last Intake of Solid Food: 11/24/21 Procedure Planning Contraindications for Sedation: none Current Medications Reviewed: Yes Notes The planned sedation has been discussed with the patient. Informed Consent was obtained. I have identified the patient, determined the appropriateness of sedation and have assessed the patient immediately prior to the procedure. All medicine(s) and interventions are by my order.
--- NOTE | 2021-11-25 07:50 | Hospitalist Progress Note ---
Date of Service November 25, 2021 Assessment & Plan (1) Gangrene of toe of right foot: Plan: 66yo female with PAD, HLD, COPD, current smoker, HTN, CVA, chronic foot wounds admitted for worsening of infection of right foot and development of gangrene, s/p AKA (11/16/21), now with development of left foot ischemia due to severe PAD. Left foot ischemia secondary to severe PAD: - Patient with development of new resting left foot pain with a few small but growing areas of ischemic necrosis. - Severe PAD with arterial occlusion seen on LLE doppler (11/23). - Dr. Dias consulted; patient taken for angiogram and possible intervention today. Report as follows: - Successful angioplasty of left mid and distal SFA with [id number] drug- eluting balloon. - Successful angioplasty and stenting of left external iliac to proximal common femoral with 6.0x120 self-expanding stent. - Required covered stent placement to right distal external iliac/proximal HAND BUFFER due to bleeding post-procedure. - POC Hgb post-intervention of 7.1 with mild hypotension, so was ordered 1u PRBCs, and transferred to ICU for monitoring. - Ultimately resume DAPT when assured of no further bleeding. - Recommend smoking cessation. - CBC in AM. Chronic wound of right foot with development of gangrene s/p AKA: - RLE [id number] amputation (11/16/21) performed due to gangrene of right foot; procedure tolerated well. - In the setting of a history of RLE ulcers and osteomyelitis treated with B actrim (course completed 11/11/21). - Course of zosyn completed (11/19/21); WBC 11.22 today. - Continue plavix when able as described above. Continue statin. - Pain control plan: - Oxycodone 10mg Q6h scheduled. - Mild pain: tramadol 50mg PO q6h prn. - Severe pain: morphine IV 2mg. - Outpatient vascular surgery follow-up in 2-3 weeks for staple removal. Dyspnea, hypoxia, newly-diagnosed COPD: - Extensive history of smoking and atherosclerotic disease. - CTA negative for PE, RLE doppler negative for DVT. - PFT (11/12): FEV1 0.86, FEV1/FVC 0.57 - meets GOLD criteria for airflow limitation of Stage 1 COPD. - Patient not usually on O2 at baseline; currently maintaining adequate oxygenation on room air. - Continue Anoro daily, albuterol PRN. Carotid artery disease: - History of left total occlusion s/p endarterectomy: - Neck CTA (11/22/21) shows: -Complete occlusion of the left common carotid artery with minimal reconstituted flow in the distal internal carotid artery, unchanged. -Right carotid endarterectomy with luminal irregularity and slightly increased stenosis compared to prior exam. However, this does not appear to be hemodynamically significant. -Right external carotid artery near total occlusion, unchanged. - Continue rosuvastatin. HTN: - Holding antihypertensives due to hypotension post-angiogram. HLD: - Continue home rosuvastatin. Tobacco abuse: - Long smoking history, certainly a major contributor to patient's vascular disease. - Continue nicotine patch. Disposition: - Patient not vaccinated for covid-19 which is complicating process of rehab referral. - Patient was accepted to [facility] but they would require her to pay her insurance deductible upfront ($3250) which patient cannot afford. - CM continuing to explore other options. Code status: full code FEN: Heart Healthy diet DVT ppx: holding medical prophylaxis in the setting of acute bleeding Dispo: med/surg (2) S/P above knee amputation: (3) PAD (peripheral artery disease): (4) Hypertension: (5) Tobacco abuse: (6) Ischemic ulcer of left foot: Admission and Anticipated Discharge Date Admission Date: November 08, 2021 Supervising Physician Co-Signing Physician Notes Attending attestation Pt seen and examined in concert with Dr. Herrera. In agreement with the documented findings as noted in the resident documentation with any exceptions or additions as noted here. 66 year old female with hx of PAD, HLD, COPD, tobacco user, HTN, CVA and chronic wound of the right foot admitted with worsening infection of the right foot and developing gangrene. Patient sedated following procedure and arousable to voice but difficulty with answering detailed questions. Denies significant pain postprocedurally. On examination, S1/S2 nl RRR no MCG. CTAB. Abd NT/ND BS+ve. L foot with palpable posterior tibial pulse and faintly palpable DP post procedurally. VS, nursing notes, labs and imaging reviewed. Gangrene of right foot s/p AKA (11/16) - continue plavix, pain management as note d. Left foot ischemia s/p revascularization (11/25) - monitoring in ICU postprocedure. Continue pain mgmt Else see resident documentation as noted. Pending clinical improvement. Subjective Overnight without acute events. This morning had angiogram with stenting of left external iliac and ballooning of left mid-distal superficial femoral artery. Fo llowing the procedure she was noted to be hypotensive despite fluids with pain in her flank area. She was taken back for repeat evaluation and found to have common femoral artery perforation with hemodynamically significant hemorrhage. She had stent placed to tamponade bleeding. She was transferred to the ICU due to low Hgb following these events. On my interview this afternoon she is having better control of her pain. She does endorse fatigue weakness, but no complaints of chest pain, SOB, abdominal pain. Review of Systems Review of Systems: All systems reviewed & are unremarkable except as noted in Subjective Physical Exam Constitutional: WD/WN, vitals as above Respiratory: normal respiratory effort, lungs clear to auscultation Cardiovascular: RRR, no murmur, no edema LLE: 2+ DP pulse, 3+ PT pulse foot warm and well perfused Gastrointestinal (Abdomen): Inspection/Auscultation: normal bowel sounds; abdomen not distended Percussion/Palpation: abdomen soft; abdomen nontender and no guarding Skin: small eschars over left foot most notable over first and third toes Neurologic: sensation intact to LLE Psychiatric: Orientation: alert and oriented x 3 Results & Data Results & Data ([facility]) Vital Signs (Past 12 Hours) Vital Signs Temp Pulse Pulse Resp BP Pulse Ox 11/25/21 07:13 78 17 169/83 H 92 11/25/21 06:52 36.6 C 76 18 155/69 H 94 11/24/21 23:21 36.5 C 79 18 116/54 L 91 11/24/21 20:48 82 128/68 Resident Activity Tracking Resident Involvement: Resident Care Provided Care Provided: Adult Hospital Medicine
--- NOTE | 2021-11-25 07:50 | Vascular Medicine ProgressNote ---
Date of Service November 25, 2021 Assessment & Plan (1) PAD (peripheral artery disease): Plan: 2. Post RT AKA 3 Perforated duodenal ulcer post surgical repair 4. COPD 5. Anemia 6. Carotid artery stenosis --right CEA, left carotid occlusion 7. Prior CVA 8. Anemia Proceed with angiogram this morning. Further recommendations pending findings. Admission and Anticipated Discharge Date Admission Date: November 08, 2021 Subjective No events overnight. Still with pain in LT toes. Review of Systems Review of Systems: All systems reviewed & are unremarkable except as noted in HPI & below Physical Exam Physical Exam: General: Thin, no acute distress, comfortable Lungs: Clear anteriorly Cardiac: Regular rate and rhythm Abdomen: Soft, nontender Psych: Alert and oriented Extremities/Vascular: Post AKA, incision dressed. No surrounding erythema/induration. --Left foot non-palpable DP/PT --Small areas of black eschar over distal tip of first/third digits. Sluggish capillary refill --No edema Results & Data ([facility]) Vital Signs (Past 12 Hours) Vital Signs Temp Pulse Pulse Resp BP Pulse Ox 11/25/21 07:13 78 17 169/83 H 92 11/25/21 06:52 97.9 F 76 18 155/69 H 94 11/24/21 23:21 97.7 F 79 18 116/54 L 91 11/24/21 20:48 82 128/68 PG Care Time/CCT Total # of Minutes Spent Total Time Spent with Patient: Total time spent is greater than 50% in coordination of care (as documented) at patient's floor/unit and/or counseling patient: Coding Level of Care Code 33319 Subseq Hosp Care Lvl 2 Diagnoses PAD (peripheral artery disease) I73.9
[2021-11-25] MEDS ORDERED: hydrALAZINE HCL 20 MG/ML VIAL ONE (08:04)
[2021-11-25] MEDS ORDERED: LABETALOL HCL IV 5 MG/ML 20ML IV ONE (08:12)
[2021-11-25] MEDS ORDERED: diphenhydrAMINE 50 MG/ML VIAL ONE (08:20)
[2021-11-25] MEDS ORDERED: CLOPIDOGREL BISULFATE 300 MG TAB ONE (08:50)
--- NOTE | 2021-11-25 09:01 | Post Anesthesia Assessment ---
Date of Service November 25, 2021 Post Sedation Assessment Vital Signs Temp Pulse Pulse Resp BP Pulse Ox 11/25/21 07:13 78 17 169/83 H 92 11/25/21 06:52 97.9 F 76 18 155/69 H 94 11/24/21 23:21 97.7 F 79 18 116/54 L 91 11/24/21 20:48 82 128/68 11/24/21 14:15 97.9 F 82 16 90/55 L 91 Recovery Score Activity: Moves 4 extremities Respiration: Deep Breath/Cough Circulation: +/-20% PreAnes Value Consciousness: Arouseable (by name) Oxygen Saturation: O2 needed for >90% Post Anesthesia Score: 8 Discharge Sedation Level of Care: Fast Track Phase II Post Sedation Plan On clinical assessment, the patient appears to have tolerated the sedation without complications. Patient is recovering as anticipated. Patient will continue to be monitored by nursing and may be discharged when sedation discharge criteria are met per below protocol. Upon Completions of procedure up to 15 minutes continue every 5 minute vital signs and the P.A.R. score; then discharge to a Phase I or Fast Track to Phase II per the following guidelines: * Discharge Patient to appropriate Phase II area if PAR is 8 or greater or return to pre- procedure baseline. The post - procedure orders will be as directed. * If PAR score is less than 8 or not return to pre-procedure baseline then patient will follow Phase I monitoring till PAR is reached for Phase II. The Phase I may be done in procedure room or may call to secure a Phase I area. * If naloxone or flumazenil are used for reversal, hold in Phase I for continued monitoring from when last reversal dose was given for a minimum of 60 minutes or longer pending the nurse and/or physician discretion of patient condition before discharge to Phase II. Please call the Sedation Physician to re-evaluate and complete post-note for discharge to Phase II area. Do NOT discharge from procedure sedation or Phase 1 until post- sedation evaluation note is complete by procedure /sedation MD Sedation Discharge Instructions to be given to the patient at discharge to home.
--- NOTE | 2021-11-25 09:04 | Endovascular Procedure Note ---
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 Distal ACCOUNTANT BOOKKEEPER widely patent without significant disease at bifurcation -SFAcalcified, 98% mid stenosis followed by mild to moderate diffuse distal disease -Poplitealwidely patent -ATAsmall, mild to moderate diffuse disease, tapers prior to ankle. -PTAsmall, moderate diffuse disease, 100% occlusion in the distal segment Peronealwidely patent to the foot, gives off collaterals to plantar arteries -DPA occluded, medial/lateral plantar arteries patent proximally Anesthesia Type RN Sedation Radiation Exposure (mGv) Radiation (mGy): 136 Contrast Contrast: 95 Complications none Disposition Accompanied Patient To Recovery: No Disposition: [employer] Indications Critical limb ischemia Description of Procedure Right ACCOUNTANT BOOKKEEPER obtained under ultrasound guidance, short 5Fr sheath placed Proximal left lower extremity angiogram performed with RIM catheter. 6 Fr 45 cm destination sheath placed from right ACCOUNTANT BOOKKEEPER to left external iliac. Selective angiography through destination sheath External iliac stenosis, mid SFA stenosis crossed with glide advantage wire and quick cross support catheter. Angioplasty of mid SFA with 4.0 balloon Angioplasty of external iliac/proximal ACCOUNTANT BOOKKEEPER with 4.0 balloon Mid to distal SFA treated with 5.0 x 150 mm Lutonix drug-eluting balloon External iliac to proximal ACCOUNTANT BOOKKEEPER stented with 6.0 x 120 Lifestream self-expanding stent Stent postdilated with 7.0 balloon and 8.0 balloon proximally Post procedure good angiographic result. Mid SFA expanded well with nonflow limiting dissection. External iliac stent expanded well with no apparent dissection, perforation or edge complications. Patient had significant pain during procedure. Also initially hypertensive with pain to the high 200s. Improved with pain control/sedation, hydralazine, labetalol and IA nitro/nicardipine. Contrast used: 95 Moderate sedation: [id number] Access closure: Mynx Summary: 1. Left lower extremity --40 to 50% ostial common iliac, diffuse up to 90% external iliac/proximal ACCOUNTANT BOOKKEEPER, 98% mid SFA. Peroneal widely patent to the foot. 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 2. Right lower extremity --50% external iliac prior to previous stent, 30% diffuse EIA in-stent restenosis. 3. Successful angioplasty of left mid to distal SFA with 5.0 x 150 mm Lutonix drug-eluting balloon. 4. Successful angioplasty and stenting of left external iliac to proximal common femoral with 6.0 x 120 self-expanding stent (postdilated proximally up to 8.0). Final result: Brisk iliac, SFA/popliteal flow with single-vessel runoff to the foot via peroneal. Recommendations: Continue DAPT with ASA/Clopidogrel Follow-up non-invasive vascular testing in 2 weeks. I attest to the content of the Intraoperative Record and any orders documented therein. Any exceptions are noted below. Vascular Charges Angiography/Venography Procedure 1: Angiography/Venography charges: [id number] Initial 2nd order abd, pelvic or LE branch Lower Extremity Interventions Procedure 1: Lower Extremity Intervention charges: [id number] Stent placement(s), iliac artery, unilateral, initial vessel; Procedure 2: Lower Extremity Intervention charges: [id number] Angioplasty, femoral, popliteal artery(s), unilateral Additional Services Procedure 1: Additional Services Charges: 66704 Ultrasound guidance - vascular access Procedure 2: Additional Services Charges: 90781 Moderate sedation initial 15 min Procedure 3: Additional Services Charges: 97951 Moderate sedation, each additional 15 min
[2021-11-25] MEDS ORDERED: HEPARIN 25000 UNIT/500 ML D5W IV ONE (11:07)
[2021-11-25] MEDS ORDERED: SODIUM CHLORIDE 0.9% 250 ML IV PRN (11:45)
[2021-11-25] MEDS ORDERED: LIDOCAINE/EPINEPHRINE 1% 20 ML VIAL ONE (12:26)
--- NOTE | 2021-11-25 13:11 | Post Anesthesia Assessment ---
Date of Service November 25, 2021 Post Sedation Assessment Vital Signs Temp Pulse Pulse Pulse Resp BP BP 11/25/21 13:00 98.2 F 80 20 117/51 L 11/25/21 12:45 79 16 93/57 L 11/25/21 11:00 80 20 118/70 11/25/21 10:45 76 22 112/53 L 11/25/21 10:15 78 20 94/45 L 11/25/21 10:00 80 18 117/55 L 11/25/21 09:45 77 18 128/50 L 11/25/21 09:30 81 18 130/59 L 11/25/21 09:25 82 18 117/76 11/25/21 09:15 84 18 94/52 L 11/25/21 09:05 82 18 110/56 L 11/25/21 07:13 78 17 169/83 H 11/25/21 06:52 97.9 F 76 18 155/69 H 11/24/21 23:21 97.7 F 79 18 116/54 L 11/24/21 20:48 82 128/68 11/24/21 14:15 97.9 F 82 16 90/55 L Pulse Ox 11/25/21 13:00 95 11/25/21 12:45 94 11/25/21 11:00 95 11/25/21 10:45 95 11/25/21 10:15 94 11/25/21 10:00 92 11/25/21 09:45 92 11/25/21 09:30 92 11/25/21 09:25 94 11/25/21 09:15 92 11/25/21 09:05 95 11/25/21 07:13 92 11/25/21 06:52 94 11/24/21 23:21 91 11/24/21 20:48 11/24/21 14:15 91 Recovery Score Activity: Moves 4 extremities Respiration: Deep Breath/Cough Circulation: +/-20% PreAnes Value Consciousness: Fully Awake Oxygen Saturation: > 92% On Room Air Post Anesthesia Score: 10 Discharge Sedation Level of Care: Higher Level of Care Post Sedation Plan On clinical assessment, the patient appears to have tolerated the sedation without complications. Patient is recovering as anticipated. Patient will continue to be monitored by nursing and may be discharged when sedation discharge criteria are met per below protocol. Upon Completions of procedure up to 15 minutes continue every 5 minute vital signs and the P.A.R. score; then discharge to a Phase I or Fast Track to Phase II per the following guidelines: * Discharge Patient to appropriate Phase II area if PAR is 8 or greater or return to pre- procedure baseline. The post - procedure orders will be as directed. * If PAR score is less than 8 or not return to pre-procedure baseline then patient will follow Phase I monitoring till PAR is reached for Phase II. The Phase I may be done in procedure room or may call to secure a Phase I area. * If naloxone or flumazenil are used for reversal, hold in Phase I for continued monitoring from when last reversal dose was given for a minimum of 60 minutes or longer pending the nurse and/or physician discretion of patient condition before discharge to Phase II. Please call the Sedation Physician to re-evaluate and complete post-note for discharge to Phase II area. Do NOT discharge from procedure sedation or Phase 1 until post- sedation evaluation note is complete by procedure /sedation MD Sedation Discharge Instructions to be given to the patient at discharge to home.
[2021-11-25 15:03] LABS: iSTAT Creatinine 0.4 mg/dl (0.6-1.3); iSTAT Hemoglobin 7.1 g/dl (12.0-16.0); iSTAT Ionized Calcium 1.2 mmol/l (1.12-1.32)
--- NOTE | 2021-11-25 15:34 | Endovascular Procedure Note ---
PG Endovascular Procedure Rpt Pre & Post Diagnosis Peripheral arterial disease Retroperitoneal hemorrhage I identified the patient and participated in the time-out.: Yes Procedure Operation Date: 11/25/21 07:30 Actual Procedures p Angio Extremity Unilateral - Andrew Dias MD s Ultrasound Vascular Access - Andrew Dias MD s Iliac Stent Balloon - MD manny Miles Femoral Popliteal Balloon - MD manny Miles Placement Art Occlusive Device - Andrew Dias MD Operation Date: 11/25/21 11:15 Actual Procedures p Angio Extremity Unilateral - MD manny Miles Ultrasound Vascular Access - Andrew Dais MD s Angiogram Abdomen Aorta - Andrew Dias MD p Iliac Stent Balloon - Andrew Dias MD s Intro of Catheter, Aorta - Andrew Dias MD s Placement Art Occlusive Device - Andrew Dias MD Surgeon Jony Dias MD 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 Left lower extremity-- -Common iliaccalcified, 40-50% ostial stenosis, proximal portion ectatic External iliacstent to proximal ROAD CROSSING GUARD widely patent, no dissection or contrast extravasation Internal iliacoccluded at the ostium -ROAD CROSSING GUARD Distal ROAD CROSSING GUARD widely patent without significant disease at bifurcation Anesthesia Type RN Sedation Radiation Exposure (mGv) Radiation (mGy): 275 Contrast Contrast: 45 Disposition Accompanied Patient To Recovery: Yes Disposition: [facility] [employer] Description of Procedure Indication: Patient underwent left external iliac to proximal ROAD CROSSING GUARD stenting and angioplasty to mid SFA via high right ROAD CROSSING GUARD access due to diffuse right ROAD CROSSING GUARD calcification. In holding area was noted to have increasing flank/back pain drop in systolic pressures to 80s to 90s despite IV fluid boluses. Brought back to [facility] for repeat angiography. Left radial artery access with 4 Fr slender sheath Pigtail catheter navigated into ascending aorta and across aortic valve. LVEDP 5 Quick cross catheter navigated into right common iliac artery over wire Angiography revealed extravasation of contrast from distal external iliac/proximal ROAD CROSSING GUARD at prior access site Franklin advantage wire directed across right external iliac/ROAD CROSSING GUARD into profunda Perforated proximal ROAD CROSSING GUARD tamponaded with 5.[address] CROSSING GUARD access obtained under ultrasound guidance, short 7Fr sheath placed Open and over with RIM catheter. 7 Fr 45 cm destination sheath placed from left ROAD CROSSING GUARD to right proximal external iliac artery External iliac to proximal ROAD CROSSING GUARD stented with 7.0 x 58 mm covered stent overlapping mid to distal portion of prior self-expanding stent. Post stent placement angiography revealed no residual contrast extravasation with brisk HEYDI-[address] CROSSING GUARD. Contrast used: 45 Visipaque Moderate sedation: [id number] Access closure: Left radial artery TR band; left ROAD CROSSING GUARD [employer] Summary: 1. Right lower extremity distal external iliac/proximal ROAD CROSSING GUARD perforation with hemodynamically significant hemorrhage. 2. Low LV filling pressures. LVEDP 5 3. Successful covered stent placement to right distal external iliac/proximal ROAD CROSSING GUARD with no additional contrast extravasation. Recommendations: Transfer to ICU for further monitoring overnight Additional fluids and 1 unit PRBC transfusion in [facility] area Hypertensives on hold, follow serial hemoglobins Assuming stable blood counts resume aspirin, clopidogrel tomorrow. I attest to the content of the Intraoperative Record and any orders documented therein. Any exceptions are noted below. Vascular Charges Angiography/Venography Procedure 1: Angiography/Venography charges: [id number] Aortography, abd + b/l iliofem LE, catheter, radiological S&I Procedure 2: Angiography/Venography charges: [id number] Initial 2nd order abd, pelvic or LE branch Lower Extremity Interventions Procedure 1: Lower Extremity Intervention charges: [id number] Stent placement(s), iliac artery, unilateral, initial vessel; Additional Services Procedure 1: Additional Services Charges: 59079 Ultrasound guidance - vascular access Procedure 2: Additional Services Charges: 53854 Moderate sedation initial 15 min Procedure 3: Additional Services Charges: 58131 Moderate sedation, each additional 15 min
[2021-11-25 15:42] LABS: Hematocrit (blood only) 29.5 % (37-47); Hemoglobin 9.2 g/dL (12.0-16.0); Mean Corpuscular Hemoglobin 27.9 pg (25-34); Mean Corpuscular Hgb Conc 31.2 g/dL (32-36); Mean Corpuscular Volume 89.4 fL (80-100); Mean Platelet Volume 8.1 fL (7.4-10.4); Platelet Count 379 K/uL (130-400); RDW Standard Deviation 54.5 fL (36.4-46.3); White Blood Count 11.22 K/uL (4.8-10.8)
[2021-11-25] MEDS: carvediloL 12.5 MG TAB PO SCH (15:46)
[2021-11-25] MEDS: HEPARIN SOD 5,000 UNIT/0.5 ML VIAL SQ SCH (15:47)
[2021-11-25] MEDS: CLOPIDOGREL BISULFATE 75 MG TAB PO SCH (15:47)
[2021-11-25] MEDS: LOSARTAN POTASSIUM 50 MG TAB PO SCH (15:48)
[2021-11-25 15:54] LABS: Partial Thromboplastin Ratio 0.9; Partial Thromboplastin Time 22.9 Seconds (21.0-31.0); Prothrombin Time 10.2 Seconds (9.0-12.0)
[2021-11-25 16:24] LABS: BUN Creatinine Ratio 57.8 (10-20); Bilirubin,Total 0.5 mg/dl (0.2-1.0); Calcium 8.5 mg/dl (8.5-10.1); Creatinine Clr Calc Pharmacy 95.1 ml/min; Est GFR (African American) 122.7 ml/min; Est GFR (Non-African American) 105.9 ml/min; Globulin 2.9 gm/dl (2.5-4.0); Potassium 4.3 mmol/L (3.5-5.1); Total Protein 5.9 gm/dl (6.0-8.3)
[2021-11-25] MEDS: DICLOFENAC SOD 1% GEL 100 GM TUBE EXT SCH ×4 (17:41→21:42)
[2021-11-25] MEDS: PANTOprazole 40 MG TAB PO SCH ×2 (17:41→21:41)
[2021-11-25] MEDS: ASPIRIN 81 MG ECTAB PO SCH (17:41)
[2021-11-25] MEDS: UMECLIDINIUM/VILANTEROL 62.5/25MCG 7 PUFFS/INHALER INH SCH (17:42)
[2021-11-25] MEDS: ROSUVASTATIN CALCIUM 20 MG TAB PO SCH (17:42)
[2021-11-25] MEDS: NICOTINE 7 MG/24 HR TDSY TD SCH (17:54)
[2021-11-25] MEDS: SODIUM CHLORIDE 0.9% 1000ML 1,000 ML IV SCH (17:55)
[2021-11-26] MEDS: oxyCODONE/ACETAMINOPHEN 10-325 TAB PO SCH ×5 (00:15→23:46)
[2021-11-26] MEDS: SODIUM CHLORIDE 0.9% 1000ML 1,000 ML IV SCH ×5 (01:59→20:49)
--- NOTE | 2021-11-26 07:24 | Hospitalist Progress Note ---
Date of Service November 26, 2021 Assessment & Plan (1) Gangrene of toe of right foot: Plan: 66yo female with PAD, HLD, COPD, current smoker, HTN, CVA, chronic foot wounds admitted for worsening of infection of right foot and development of gangrene, s/p AKA (11/16/21), now with development of left foot ischemia due to severe PAD. Left foot ischemia secondary to severe PAD: POD 1 status post angioplasty of the left mid distal SFA and left external iliac with drug-eluting stent placement. - Patient with development of new resting left foot pain with a few small but growing areas of ischemic necrosis. - Severe PAD with arterial occlusion seen on LLE doppler (11/23). - Dr. Dias consulted; patient taken for angiogram and possible intervention today. Report as follows: -trend hgb -Do not feel active bleed at present Intra-Op hemoglobin was 7.1. -Resume ASA today, clopidogrel tomorrow -Resume carvedilol this evening. - Recommend smoking cessation. - Daily CBC Chronic wound of right foot with development of gangrene s/p AKA: - RLE [id number] amputation (11/16/21) performed due to gangrene of right foot; procedure tolerated well. - In the setting of a history of RLE ulcers and osteomyelitis treated with Bactrim (course completed 11/11/21). - Course of zosyn completed (11/19/21); WBC 11.22 today. - Continue plavix when able as described above. Continue statin. - Pain control plan: - Oxycodone 10mg Q6h scheduled. - Mild pain: tramadol 50mg PO q6h prn. - Severe pain: morphine IV 2mg. - Outpatient vascular surgery follow-up in 2-3 weeks for staple removal. Dyspnea, hypoxia, newly-diagnosed COPD: - Extensive history of smoking and atherosclerotic disease. - CTA negative for PE, RLE doppler negative for DVT. - PFT (11/12): FEV1 0.86, FEV1/FVC 0.57 - meets GOLD criteria for airflow limitation of Stage 1 COPD. - Patient not usually on O2 at baseline; currently maintaining adequate oxygenation on room air. - Continue Anoro daily, albuterol PRN. Carotid artery disease: - History of left total occlusion s/p endarterectomy: - Neck CTA (11/22/21) shows: -Complete occlusion of the left common carotid artery with minimal reconstituted flow in the distal internal carotid artery, unchanged. -Right carotid endarterectomy with luminal irregularity and slightly increased stenosis compared to prior exam. However, this does not appear to be hemodynamically significant. -Right external carotid artery near total occlusion, unchanged. - Continue rosuvastatin. HTN: - Holding antihypertensives due to hypotension post-angiogram. HLD: - Continue home rosuvastatin. Tobacco abuse: - Long smoking history, certainly a major contributor to patient's vascular disease. - Continue nicotine patch. Disposition: - Patient not vaccinated for covid-19 which is complicating process of rehab referral. - Patient was accepted to [facility] but they would require her to pay her insurance deductible upfront ($3250) which patient cannot afford. - CM continuing to explore other options. Code status: full code FEN: Heart Healthy diet DVT ppx: holding medical prophylaxis resum per cards Dispo: pcu (2) S/P above knee amputation: (3) PAD (peripheral artery disease): (4) Hypertension: (5) Tobacco abuse: (6) Ischemic ulcer of left foot: Admission and Anticipated Discharge Date Admission Date: November 08, 2021 Supervising Physician Co-Signing Physician Notes Attending attestation Pt seen and examined in concert with Dr. Mireles. In agreement with the docu mented findings as noted in the resident documentation with any exceptions or additions as noted here. 66 year old female with hx of PAD, HLD, COPD, tobacco user, HTN, CVA and chronic wound of the right foot admitted with worsening infection of the right foot and developing gangrene. Mild aching of distal left lower extremity which is overall improved from yesterday. On examination, S1/S2 nl RRR no MCG. CTAB. Abd NT/ND BS+ve. L foot with palpable posterior tibial pulse. VS, nursing notes, labs and imaging reviewed. Left foot ischemia s/p revascularization (11/25) - interventional cardiology consult - monitoring in ICU postprocedure to downgrade today. Continue ASA/plavix, rosuvastatin. Pain management Gangrene of right foot s/p AKA (11/16) - continue ASA/plavix, pain management as noted 40 minutes spent at bedside reviewing two major issues. Tobacco use - patient has tried to quit in the past with mixed success. Does have nicorette which has provided temporary relief but is finding good relief with NRT with patch in hospital. After reviewing the impact that smoking has on vascular disease especially after stenting, patient very interested in quitting and would accept NRT w/ patches and gum for breakthrough. COVID-19 vaccination - reviewed in detail the benefits of vaccination including reduced hospitalization and severity of disease which is concerning with her medical history as well as limitations in placement that could delay discharge. Offered gently to answer any questions that she might have that would help address barriers to vaccination and patient declines further discussion despite encouragement. Else see resident documentation as noted. Pending clinical improvement. Subjective Patient lying in bed no acute distress. Patient reports doing well overnight, tolerating a diet, voiding, stooling, no acute distress. Reviewed importance of smoking cessation with the patient. Patient is eager to quit. Acute concerns related to disposition. Patient is not interested in vaccination Physical Exam Physical Exam: General: No acute distress HEENT: Normocephalic atraumatic Neck: Normal to visual inspection Cardiac: Regular rate and rhythm I did not appreciate any significant murmurs rubs or gallops Respiratory: Clear to auscultation bilaterally GI: Some right flank tenderness Skin: Skin clean dry and intact palpable left femoral and popliteal pulse, nonpalpable left foot Results & Data Results & Data ([facility]) Vital Signs (Past 12 Hours) Vital Signs Temp Pulse Pulse Resp BP BP Pulse Ox 11/26/21 06:30 90 13 93 11/26/21 06:00 103 H 24 171/83 H 98 11/26/21 05:30 112 H 24 90 11/26/21 05:00 99 H 13 179/103 H 96 11/26/21 04:30 109 H 20 97 11/26/21 04:00 103 H 15 158/99 H 94 11/26/21 03:30 105 H 15 93 11/26/21 03:00 104 H 16 174/73 H 95 11/26/21 02:30 105 H 15 94 11/26/21 02:00 109 H 18 155/73 H 93 11/26/21 01:30 107 H 18 92 11/26/21 01:00 105 H 13 170/66 H 95 11/26/21 00:30 109 H 16 93 11/26/21 00:09 108 H 22 157/71 H 93 11/26/21 00:00 104 H 15 96 11/25/21 23:30 102 H 18 92 11/25/21 23:00 36.7 C 97 H 17 158/66 H 93 11/25/21 22:30 100 H 24 164/73 H 91 11/25/21 22:00 100 H 14 159/62 H 93 11/25/21 21:30 102 H 20 143/61 H 93 11/25/21 21:00 102 H 16 146/63 H 97 11/25/21 20:30 97 H 20 136/57 L 90 11/25/21 20:00 95 H 23 102/51 L 91 11/25/21 19:37 36.8 C 93 H 20 125/58 L 95 11/25/21 19:30 93 H 22 94 Laboratory Results 11/26/21 11/26/21 11/26/21 Range/Units 12:53 09:52 09:52 WBC (4.8-10.8) K/uL RBC (4.2-5.4) M/uL Hgb 7.2 L (12.0-16.0) g/dL Hct 23.1 L (37-47) % MCV (80-100) fL MCH (25-34) pg MCHC (32-36) g/dL RDW Std Deviation (36.4-46.3) fL RDW Coeff of Odette (11.5-14.5) % Plt Count (130-400) K/uL MPV (7.4-10.4) fL Immature Gran % (Auto) % Neut % (Auto) % Lymph % (Auto) % [facility] % (Auto) % Eos % (Auto) % Baso % (Auto) % Neut # (Auto) (1.4-6.5) K/uL Lymph # (Auto) (1.2-3.4) K/uL [facility] # (Auto) (0.11-0.59) K/uL Eos # (Auto) (0-0.5) K/uL Baso # (Auto) (0-0.2) K/uL Immature Gran # (Auto) (0.00-0.02) K/uL Polychromasia PT 10.3 (9.0-12.0) Seconds INR 1.0 (0.9-1.1) APTT (21.0-31.0) Seconds PTT Ratio Sodium 134 L (136-145) mmol/L Potassium 3.7 (3.5-5.1) mmol/L Chloride 105 (98-107) mmol/L Carbon Dioxide 25 (21-32) mmol/L Anion Gap 4 (3-11) BUN 15 (6-23) mg/dl Creatinine 0.41 L (0.6-1.2) mg/dl Est Cr Clr Drug Dosing 104.4 ml/min Est GFR ( Amer) 126.5 ml/min Est GFR (Non-Af Amer) 109.2 ml/min BUN/Creatinine Ratio 36.6 H (10-20) Glucose 123 H (70-99(Fasting)) mg/dl Calcium 7.8 L (8.5-10.1) mg/dl Phosphorus 2.9 (2.5-4.9) mg/dl Magnesium 1.5 L (1.7-2.4) mg/dl Total Bilirubin (0.2-1.0) mg/dl AST (13-39) U/L ALT (7-52) U/L Alkaline Phosphatase (34-104) U/L Total Protein (6.0-8.3) gm/dl Albumin (3.4-5.0) gm/dl Globulin (2.5-4.0) gm/dl Albumin/Globulin Ratio (0.9-2) Nasal Screen MRSA (PCR) (Negative) Blood Type Antibody Screen Crossmatch 11/26/21 11/25/21 11/25/21 Range/Units 09:52 15:34 15:34 WBC 8.19 11.22 H (4.8-10.8) K/uL RBC 2.74 L 3.30 L (4.2-5.4) M/uL Hgb 7.6 L 9.2 L (12.0-16.0) g/dL Hct 24.4 L 29.5 L (37-47) % MCV 89.1 89.4 (80-100) fL MCH 27.7 27.9 (25-34) pg MCHC 31.1 L 31.2 L (32-36) g/dL RDW Std Deviation 55.4 H 54.5 H (36.4-46.3) fL RDW Coeff of Odette 17.2 H 17.0 H (11.5-14.5) % Plt Count 337 379 (130-400) K/uL MPV 8.1 8.1 (7.4-10.4) fL Immature Gran % (Auto) 0.0 % Neut % (Auto) 80.6 % Lymph % (Auto) 10.1 % [facility] % (Auto) 7.9 % Eos % (Auto) 1.0 % Baso % (Auto) 0.4 % Neut # (Auto) 6.60 H (1.4-6.5) K/uL Lymph # (Auto) 0.83 L (1.2-3.4) K/uL [facility] [place] # (Auto) 0.65 H (0.11-0.59) K/uL Eos # (Auto) 0.08 (0-0.5) K/uL Baso # (Auto) 0.03 (0-0.2) K/uL Immature Gran # (Auto) 0.00 (0.00-0.02) K/uL Polychromasia 1+ PT (9.0-12.0) Seconds INR (0.9-1.1) APTT (21.0-31.0) Seconds PTT Ratio Sodium 135 L (136-145) mmol/L Potassium 4.3 (3.5-5.1) mmol/L Chloride 105 (98-107) mmol/L Carbon Dioxide 25 (21-32) mmol/L Anion Gap 5 (3-11) BUN 26 H (6-23) mg/dl Creatinine 0.45 L (0.6-1.2) mg/dl Est Cr Clr Drug Dosing 95.1 ml/min Est GFR ( Amer) 122.7 ml/min Est GFR (Non-Af Amer) 105.9 ml/min BUN/Creatinine Ratio 57.8 H (10-20) Glucose 106 H (70-99(Fasting)) mg/dl Calcium 8.5 (8.5-10.1) mg/dl Phosphorus (2.5-4.9) mg/dl Magnesium (1.7-2.4) mg/dl Total Bilirubin 0.5 (0.2-1.0) mg/dl AST 19 (13-39) U/L ALT 18 (7-52) U/L Alkaline Phosphatase 68 (34-104) U/L Total Protein 5.9 L (6.0-8.3) gm/dl Albumin 3.0 L (3.4-5.0) gm/dl Globulin 2.9 (2.5-4.0) gm/dl Albumin/Globulin Ratio 1.0 (0.9-2) Nasal Screen MRSA (PCR) (Negative) Blood Type Antibody Screen Crossmatch 11/25/21 11/25/21 11/25/21 Range/Units 15:34 15:26 11:55 WBC (4.8-10.8) K/uL RBC (4.2-5.4) M/uL Hgb (12.0-16.0) g/dL Hct (37-47) % MCV (80-100) fL MCH (25-34) pg MCHC (32-36) g/dL RDW Std Deviation (36.4-46.3) fL RDW Coeff of Odette (11.5-14.5) % Plt Count (130-400) K/uL MPV (7.4-10.4) fL Immature Gran % (Auto) % Neut % (Auto) % Lymph % (Auto) % [facility] [place] % (Auto) % Eos % (Auto) % Baso % (Auto) % Neut # (Auto) (1.4-6.5) K/uL Lymph # (Auto) (1.2-3.4) K/uL [facility] [place] # (Auto) (0.11-0.59) K/uL Eos # (Auto) (0-0.5) K/uL Baso # (Auto) (0-0.2) K/uL Immature Gran # (Auto) (0.00-0.02) K/uL Polychromasia PT 10.2 (9.0-12.0) Seconds INR 1.0 (0.9-1.1) APTT 22.9 (21.0-31.0) Seconds PTT Ratio 0.9 Sodium (136-145) mmol/L Potassium (3.5-5.1) mmol/L Chloride (98-107) mmol/L Carbon Dioxide (21-32) mmol/L Anion Gap (3-11) BUN (6-23) mg/dl Creatinine (0.6-1.2) mg/dl Est Cr Clr Drug Dosing ml/min Est GFR ( Amer) ml/min Est GFR (Non-Af Amer) ml/min BUN/Creatinine Ratio (10-20) Glucose (70-99(Fasting)) mg/dl Calcium (8.5-10.1) mg/dl Phosphorus (2.5-4.9) mg/dl Magnesium (1.7-2.4) mg/dl Total Bilirubin (0.2-1.0) mg/dl AST (13-39) U/L ALT (7-52) U/L Alkaline Phosphatase (34-104) U/L Total Protein (6.0-8.3) gm/dl Albumin (3.4-5.0) gm/dl Globulin (2.5-4.0) gm/dl Albumin/Globulin Ratio (0.9-2) Nasal Screen MRSA (PCR) Negative (Negative) Blood Type O Negative Antibody Screen NEGATIVE Crossmatch See Detail Medications Administered Current Inpatient Medications Albuterol (Albuterol Hfa 8 Gm Inhaler) 2 puffs INH BID PRN PRN Reason: Wheezing Stop: 12/11/21 20:59 Aspirin (Aspirin 81 Mg Ectab) 81 mg PO QAM [facility] Stop: 12/09/21 08:59 Last Admin: 11/26/21 13:42 Dose: 81 mg Documented by: Carvedilol (Carvedilol 12.5 Mg Tab) 12.5 mg PO BID [facility] Stop: 12/08/21 20:59 Last Admin: 11/25/21 15:46 Dose: Not Given Documented by: Clopidogrel Bisulfate (Clopidogrel Bisulfate 75 Mg Tab) 75 mg PO QAM [facility] Stop: 12/12/21 08:59 Last Admin: 11/26/21 13:38 Dose: Not Given Documented by: Diclofenac Sodium (Diclofenac Sod 1% Gel 100 Gm Tube) 4 gm EXT QID [facility] Stop: 12/11/21 16:59 Last Admin: 11/26/21 13:42 Dose: 4 gm Documented by: Ferrous Sulfate (Ferrous Sulfate 325 Mg Tab) 325 mg PO Q48H [facility] Stop: 12/23/21 08:59 Last Admin: 11/24/21 08:07 Dose: 325 mg Documented by: Heparin Sodium (Porcine) (Heparin Sod 5,000 Unit/0.5 Ml Vial) 5,000 units SQ Q12 [facility] Stop: 12/08/21 20:59 Last Admin: 11/25/21 15:47 Dose: Not Given Documented by: Sodium Chloride (Nss 1000ml) 1,000 mls @ 150 mls/hr IV .Q6H40M [facility] Stop: 12/25/21 12:59 Last Admin: 11/26/21 12:27 Dose: 150 mls/hr Documented by: Losartan Potassium (Losartan Potassium 50 Mg Tab) 50 mg PO QAM [facility] Stop: 12/09/21 08:59 Last Admin: 11/25/21 15:48 Dose: Not Given Documented by: Miscellaneous (Remove Nicoderm Patch) 1 ea N/A DAILY@0859 [facility] Stop: 12/11/21 08:58 Last Admin: 11/26/21 10:12 Dose: 1 ea Documented by: Nicotine (Nicotine 7 Mg/24 Hr Tdsy) 7 mg TD QAM [facility] Stop: 12/11/21 08:59 Last Admin: 11/26/21 13:38 Dose: 7 mg Documented by: Oxycodone/Acetaminophen (Oxycodone/Acetaminophen 10-325 Tab) 1 tab PO Q6H [facility] Stop: 12/08/21 11:59 Last Admin: 11/26/21 12:20 Dose: 1 tab Documented by: Pantoprazole Sodium (Pantoprazole 40 Mg Tab) 40 mg PO BID [facility] Stop: 12/08/21 20:59 Last Admin: 11/26/21 12:21 Dose: 40 mg Documented by: Polyethylene Glycol (Polyethylene (Miralax) 17 Gm Pack) 17 gm PO DAILY PRN PRN Reason: Constipation Stop: 12/13/21 10:08 Last Admin: 11/13/21 10:26 Dose: 17 gm Documented by: Rosuvastatin Calcium (Rosuvastatin Calcium 20 Mg Tab) 20 mg PO QAM [facility] Stop: 12/09/21 08:59 Last Admin: 11/26/21 13:42 Dose: 20 mg Documented by: Tramadol HCl (Tramadol Hcl 50 Mg Tablet) 50 mg PO Q6H PRN PRN Reason: pain Stop: 12/08/21 18:12 Last Admin: 11/24/21 22:42 Dose: 50 mg Documented by: Umeclidinium/Vilanterol (Umeclidinium/Vilanterol 62.5/25mcg 7 Puffs/Inhaler) 1 puffs INH DAILY [facility] Stop: 12/13/21 11:14 Last Admin: 11/26/21 12:21 Dose: 1 puffs Documented by:
[2021-11-26 10:02] LABS: Basophils # (auto) 0.03 K/uL (0-0.2); Basophils % (auto) 0.4 %; Eosinophils # (auto) 0.08 K/uL (0-0.5); Hematocrit (blood only) 24.4 % (37-47); Hemoglobin 7.6 g/dL (12.0-16.0); Lymphocytes # (auto) 0.83 K/uL (1.2-3.4); Lymphocytes % (auto) 10.1 %; Mean Corpuscular Hemoglobin 27.7 pg (25-34); Mean Corpuscular Volume 89.1 fL (80-100); Mean Platelet Volume 8.1 fL (7.4-10.4); Monocytes # (auto) 0.65 K/uL (0.11-0.59); Monocytes % (auto) 7.9 %; Neutrophils % (auto) 80.6 %; Platelet Count 337 K/uL (130-400); RDW Coefficient of Variation 17.2 % (11.5-14.5); RDW Standard Deviation 55.4 fL (36.4-46.3); Red Blood Count 2.74 M/uL (4.2-5.4); White Blood Count 8.19 K/uL (4.8-10.8)
[2021-11-26 10:07] LABS: Mean Corpuscular Hgb Conc 31.1 g/dL (32-36)
[2021-11-26 10:13] LABS: Prothrombin Time 10.3 Seconds (9.0-12.0)
[2021-11-26 10:31] LABS: BUN Creatinine Ratio 36.6 (10-20); Calcium 7.8 mg/dl (8.5-10.1); Creatinine Clr Calc Pharmacy 104.4 ml/min; Est GFR (African American) 126.5 ml/min; Est GFR (Non-African American) 109.2 ml/min; Magnesium 1.5 mg/dl (1.7-2.4); Phosphorus 2.9 mg/dl (2.5-4.9); Polychromasia 1+; Potassium 3.7 mmol/L (3.5-5.1)
[2021-11-26] MEDS: UMECLIDINIUM/VILANTEROL 62.5/25MCG 7 PUFFS/INHALER INH SCH (12:21)
[2021-11-26] MEDS: PANTOprazole 40 MG TAB PO SCH ×2 (12:21→20:49)
[2021-11-26] MEDS: DICLOFENAC SOD 1% GEL 100 GM TUBE EXT SCH ×4 (12:22→20:48)
[2021-11-26 13:00] LABS: Hematocrit (blood only) 23.1 % (37-47); Hemoglobin 7.2 g/dL (12.0-16.0)
--- NOTE | 2021-11-26 13:01 | Vascular Medicine ProgressNote ---
Date of Service November 26, 2021 Assessment & Plan (1) PAD (peripheral artery disease): Plan: - Post procedure day 1 following LT EIA/COLLAR POINTER stenting, mid SFA angioplasty 2. RT proximal COLLAR POINTER perforation/hemorrhage post covered stent placement 3. Post RT AKA 4 Blood loss anemia 5. COPD 6. Carotid artery stenosis --right CEA, left carotid occlusion 7. Prior CVA 8. PUD with prior GI bleed Patient looks well. Perfusion of LT foot seems improved. 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 Initially after transfusion measured at 9.2. Now 7.6. At this point do not feel still actively bleeding. Repeat H/H pending . If stable plan to resume ASA today. Clopidogrel tomorrow. Resume home carvedilol this evening if blood counts stable. No plans for transfusion unless Hgb < 7. Will follow. Admission and Anticipated Discharge Date Admission Date: November 08, 2021 Subjective Sitting up eating lunch. Mild residual pain at LT 2 digit ulcer site. RT flank pain with moving/twisting. Review of Systems Review of Systems: All systems reviewed & are unremarkable except as noted in HPI & below Physical Exam Physical Exam: General: Thin, no acute distress, comfortable Lungs: Clear anteriorly Cardiac: Tachycardic, regular Abdomen: Rt flank soft today, diffusely tender. Psych: Alert and oriented Extremities/Vascular: Post AKA, incision blayne in place. Appears well perfused. No surrounding erythema -- 2+ LT femoral, 1+ popliteal pulse --Left foot non-palpable DP/PT --Left foot pink, cap refill improved. --Small areas of black eschar over distal tip of first/2nd/third digits. Minimal surrounding erythema. --No edema Results & Data ([facility]) Vital Signs (Past 12 Hours) Vital Signs Pulse Resp BP Pulse Ox 11/26/21 06:30 90 13 93 11/26/21 06:00 103 H 24 171/83 H 98 11/26/21 05:30 112 H 24 90 11/26/21 05:00 99 H 13 179/103 H 96 11/26/21 04:30 109 H 20 97 11/26/21 04:00 103 H 15 158/99 H 94 11/26/21 03:30 105 H 15 93 11/26/21 03:00 104 H 16 174/73 H 95 11/26/21 02:30 105 H 15 94 11/26/21 02:00 109 H 18 155/73 H 93 11/26/21 01:30 107 H 18 92 11/26/21 01:00 105 H 13 170/66 H 95 PG Care Time/CCT Total # of Minutes Spent Total Time Spent with Patient: Total time spent is greater than 50% in coordination of care (as documented) at patient's floor/unit and/or counseling patient: Coding Level of Care Code 00264 Subseq Hosp Care Lvl 3 Diagnoses PAD (peripheral artery disease) I73.9
[2021-11-26] MEDS: NICOTINE 7 MG/24 HR TDSY TD SCH (13:38)
[2021-11-26] MEDS: CLOPIDOGREL BISULFATE 75 MG TAB PO SCH (13:38)
[2021-11-26] MEDS: ASPIRIN 81 MG ECTAB PO SCH (13:42)
[2021-11-26] MEDS: ROSUVASTATIN CALCIUM 20 MG TAB PO SCH (13:42)
[2021-11-26 16:54] LABS: Hematocrit (blood only) 24.3 % (37-47); Hemoglobin 7.6 g/dL (12.0-16.0)
[2021-11-26] MEDS: MELATONIN 3 MG TAB PO PRN (21:36)
[2021-11-26] MEDS ORDERED: carvediloL 12.5 MG TAB PO ONE (23:39)
[2021-11-27] MEDS: SODIUM CHLORIDE 0.9% 1000ML 1,000 ML IV SCH (02:41)
[2021-11-27 05:46] LABS: Basophils # (auto) 0.06 K/uL (0-0.2); Basophils % (auto) 0.8 %; Eosinophils # (auto) 0.15 K/uL (0-0.5); Eosinophils % (auto) 1.9 %; Hematocrit (blood only) 26.3 % (37-47); Immature Granulocytes # (auto) 0.01 K/uL (0.00-0.02); Immature Granulocytes % (auto) 0.1 %; Lymphocytes # (auto) 1.01 K/uL (1.2-3.4); Lymphocytes % (auto) 12.6 %; Mean Corpuscular Hemoglobin 27.4 pg (25-34); Mean Corpuscular Hgb Conc 30.4 g/dL (32-36); Mean Corpuscular Volume 90.1 fL (80-100); Monocytes # (auto) 0.59 K/uL (0.11-0.59); Monocytes % (auto) 7.4 %; Neutrophils # (auto) 6.18 K/uL (1.4-6.5); Neutrophils % (auto) 77.2 %; Platelet Count 360 K/uL (130-400); RDW Coefficient of Variation 17.2 % (11.5-14.5); RDW Standard Deviation 55.7 fL (36.4-46.3); Red Blood Count 2.92 M/uL (4.2-5.4)
[2021-11-27 06:08] LABS: BUN Creatinine Ratio 24.3 (10-20); Calcium 8.4 mg/dl (8.5-10.1); Creatinine Clr Calc Pharmacy 115.7 ml/min; Est GFR (African American) 130.9 ml/min; Est GFR (Non-African American) 112.9 ml/min; Potassium 3.7 mmol/L (3.5-5.1)
--- NOTE | 2021-11-27 07:34 | Hospitalist Progress Note ---
Date of Service November 27, 2021 Assessment & Plan (1) Gangrene of toe of right foot: Plan: 66yo female with PAD, HLD, COPD, current smoker, HTN, CVA, chronic foot wounds admitted for worsening of infection of right foot and development of gangrene, s/p AKA (11/16/21), now with development of left foot ischemia due to severe PAD. Left foot ischemia secondary to severe PAD: POD 1 status post angioplasty of the left mid distal SFA and left external iliac with drug-eluting stent placement. - Patient with development of new resting left foot pain with a few small but growing areas of ischemic necrosis. - Severe PAD with arterial occlusion seen on LLE doppler (11/23). - Dr. Dias consulted; patient taken for angiogram with stent placemetn 11/25. -Trend hgb -Do not feel active bleed at present Intra-Op hemoglobin was 7.1. -Resume ASA and clopidogrel -Resume carvedilol this evening. - Recommend smoking cessation. - Daily CBC -HGB:9.2->7.6->7.2->7.6->8.0 Chronic wound of right foot with development of gangrene s/p AKA: - RLE [id number] amputation (11/16/21) performed due to gangrene of right foot; procedure tolerated well. - In the setting of a history of RLE ulcers and osteomyelitis treated with Bactrim (course completed 11/11/21). - Course of zosyn completed (11/19/21); -WBC 11.22->8 - Continue plavix when able as described above. Continue statin. - Pain control plan: - Oxycodone 10mg Q6h scheduled. - Mild pain: tramadol 50mg PO q6h prn. - Severe pain: morphine IV 2mg. - Outpatient vascular surgery follow-up in 2-3 weeks for staple removal. Dyspnea, hypoxia, newly-diagnosed COPD: - Extensive history of smoking and atherosclerotic disease. - CTA negative for PE, RLE doppler negative for DVT. - PFT (11/12): FEV1 0.86, FEV1/FVC 0.57 - meets GOLD criteria for airflow limitation of Stage 1 COPD. - Patient not usually on O2 at baseline; currently maintaining adequate oxygenation on room air. - Continue Anoro daily, albuterol PRN. Carotid artery disease: - History of left total occlusion s/p endarterectomy: - Neck CTA (11/22/21) shows: -Complete occlusion of the left common carotid artery with minimal reconstituted flow in the distal internal carotid artery, unchanged. -Right carotid endarterectomy with luminal irregularity and slightly increased stenosis compared to prior exam. However, this does not appear to be hemodynamically significant. -Right external carotid artery near total occlusion, unchanged. - Continue rosuvastatin. HTN: - Holding antihypertensives due to hypotension post-angiogram. HLD: - Continue home rosuvastatin. Tobacco abuse: - Long smoking history, certainly a major contributor to patient's vascular disease. - Continue nicotine patch. Disposition: - Patient not vaccinated for covid-19 which is complicating process of rehab referral. - Patient was accepted to [facility] but they would require her to pay her insurance deductible upfront ($3250) which patient cannot afford. - CM continuing to explore other options. Code status: full code FEN: Heart Healthy diet DVT ppx: holding medical prophylaxis resume per cards Dispo: pcu (2) S/P above knee amputation: (3) PAD (peripheral artery disease): (4) Hypertension: (5) Tobacco abuse: (6) Ischemic ulcer of left foot: Admission and Anticipated Discharge Date Admission Date: November 08, 2021 Supervising Physician Co-Signing Physician Notes Attending attestation Pt seen and examined in concert with Dr. Mireles. In agreement with the documented findings as noted in the resident documentation with any exceptions or additions as noted here. 66 year old female with hx of PAD, HLD, COPD, tobacco user, HTN, CVA and chronic wound of the right foot admitted with worsening infection of the right foot and developing gangrene. Improving complaint of LLE pain well controlled on present medication regimen On examination, S1/S2 nl RRR no MCG. CTAB. Abd NT/ND BS+ve. L foot with palpable posterior tibial pulse. VS, nursing notes, labs reviewed. Left foot ischemia s/p revascularization (11/25) - interventional vascular c onsult - Continue ASA/plavix, rosuvastatin. Pain management Gangrene of right foot s/p AKA (11/16) - continue ASA/plavix, pain management as noted Tobacco use - extensive conversation, patient willing w/ NRT and nicorette on discharge COVID-19 vaccination - reviewed in detail the benefits of vaccination including reduced hospitalization and severity of disease which is concerning with her medical history as well as limitations in placement that could delay discharge. Offered gently to answer any questions that she might have that would help address barriers to vaccination and patient declines further discussion despite encouragement. Else see resident documentation as noted. Pending clinical improvement and placement. Subjective Patient lying in bed this morning no acute distress. Patient ports no acute events overnight, reports she is tolerating her diet, voiding and stooling, reports pain is well controlled. She denies any chest pressure chest pain at this point. Acute concerns related to disposition. Physical Exam Physical Exam: General: No acute distress HEENT: Normocephalic atraumatic Neck: Normal to visual inspection Cardiac: Regular rate and rhythm I did not appreciate any significant murmurs rubs or gallops Respiratory: Clear to auscultation bilaterally GI: Some right flank tenderness Skin: Skin clean dry and intact palpable left femoral and popliteal pulse, nonpalpable left foot Results & Data Results & Data ([facility]) Vital Signs (Past 12 Hours) Vital Signs Temp Pulse Pulse Resp BP BP Pulse Ox 11/27/21 03:33 36.6 C 89 18 178/77 H 96 11/26/21 23:24 36.9 C 93 H 18 158/71 H 95 11/26/21 22:00 101 H 17 186/82 H 94 11/26/21 21:00 97 H 13 182/85 H 94 11/26/21 20:27 36.5 C 98 H 20 179/85 H 91 11/26/21 20:00 97 H 19 198/88 H 11/26/21 19:38 99 H 21 179/85 H 93 Laboratory Results 11/27/21 11/27/21 11/26/21 Range/Units 05:33 05:33 16:45 WBC 8.00 (4.8-10.8) K/uL RBC 2.92 L (4.2-5.4) M/uL Hgb 8.0 L 7.6 L (12.0-16.0) g/dL Hct 26.3 L 24.3 L (37-47) % MCV 90.1 (80-100) fL MCH 27.4 (25-34) pg MCHC 30.4 L (32-36) g/dL RDW Std Deviation 55.7 H (36.4-46.3) fL RDW Coeff of Odette 17.2 H (11.5-14.5) % Plt Count 360 (130-400) K/uL MPV 8.0 (7.4-10.4) fL Immature Gran % (Auto) 0.1 % Neut % (Auto) 77.2 % Lymph % (Auto) 12.6 % [place] % (Auto) 7.4 % Eos % (Auto) 1.9 % Baso % (Auto) 0.8 % Neut # (Auto) 6.18 (1.4-6.5) K/uL Lymph # (Auto) 1.01 L (1.2-3.4) K/uL [place] # (Auto) 0.59 (0.11-0.59) K/uL Eos # (Auto) 0.15 (0-0.5) K/uL Baso # (Auto) 0.06 (0-0.2) K/uL Immature Gran # (Auto) 0.01 (0.00-0.02) K/uL Polychromasia PT (9.0-12.0) Seconds INR (0.9-1.1) Sodium 135 L (136-145) mmol/L Potassium 3.7 (3.5-5.1) mmol/L Chloride 103 (98-107) mmol/L Carbon Dioxide 27 (21-32) mmol/L Anion Gap 5 (3-11) BUN 9 (6-23) mg/dl Creatinine 0.37 L (0.6-1.2) mg/dl Est Cr Clr Drug Dosing 115.7 ml/min Est GFR ( Amer) 130.9 ml/min Est GFR (Non-Af Amer) 112.9 ml/min BUN/Creatinine Ratio 24.3 H (10-20) Glucose 110 H (70-99(Fasting)) mg/dl Calcium 8.4 L (8.5-10.1) mg/dl Phosphorus (2.5-4.9) mg/dl Magnesium (1.7-2.4) mg/dl Blood Type Antibody Screen Crossmatch 11/26/21 11/26/21 11/26/21 Range/Units 12:53 09:52 09:52 WBC (4.8-10.8) K/uL RBC (4.2-5.4) M/uL Hgb 7.2 L (12.0-16.0) g/dL Hct 23.1 L (37-47) % MCV (80-100) fL MCH (25-34) pg MCHC (32-36) g/dL RDW Std Deviation (36.4-46.3) fL RDW Coeff of Odette (11.5-14.5) % Plt Count (130-400) K/uL MPV (7.4-10.4) fL Immature Gran % (Auto) % Neut % (Auto) % Lymph % (Auto) % [place] % (Auto) % Eos % (Auto) % Baso % (Auto) % Neut # (Auto) (1.4-6.5) K/uL Lymph # (Auto) (1.2-3.4) K/uL [place] # (Auto) (0.11-0.59) K/uL Eos # (Auto) (0-0.5) K/uL Baso # (Auto) (0-0.2) K/uL Immature Gran # (Auto) (0.00-0.02) K/uL Polychromasia PT 10.3 (9.0-12.0) Seconds INR 1.0 (0.9-1.1) Sodium 134 L (136-145) mmol/L Potassium 3.7 (3.5-5.1) mmol/L Chloride 105 (98-107) mmol/L Carbon Dioxide 25 (21-32) mmol/L Anion Gap 4 (3-11) BUN 15 (6-23) mg/dl Creatinine 0.41 L (0.6-1.2) mg/dl Est Cr Clr Drug Dosing 104.4 ml/min Est GFR ( Amer) 126.5 ml/min Est GFR (Non-Af Amer) 109.2 ml/min BUN/Creatinine Ratio 36.6 H (10-20) Glucose 123 H (70-99(Fasting)) mg/dl Calcium 7.8 L (8.5-10.1) mg/dl Phosphorus 2.9 (2.5-4.9) mg/dl Magnesium 1.5 L (1.7-2.4) mg/dl Blood Type Antibody Screen Crossmatch 11/26/21 11/25/21 Range/Units 09:52 11:55 WBC 8.19 (4.8-10.8) K/uL RBC 2.74 L (4.2-5.4) M/uL Hgb 7.6 L (12.0-16.0) g/dL Hct 24.4 L (37-47) % MCV 89.1 (80-100) fL MCH 27.7 (25-34) pg MCHC 31.1 L (32-36) g/dL RDW Std Deviation 55.4 H (36.4-46.3) fL RDW Coeff of Odette 17.2 H (11.5-14.5) % Plt Count 337 (130-400) K/uL MPV 8.1 (7.4-10.4) fL Immature Gran % (Auto) 0.0 % Neut % (Auto) 80.6 % Lymph % (Auto) 10.1 % [place] % (Auto) 7.9 % Eos % (Auto) 1.0 % Baso % (Auto) 0.4 % Neut # (Auto) 6.60 H (1.4-6.5) K/uL Lymph # (Auto) 0.83 L (1.2-3.4) K/uL [place] # (Auto) 0.65 H (0.11-0.59) K/uL Eos # (Auto) 0.08 (0-0.5) K/uL Baso # (Auto) 0.03 (0-0.2) K/uL Immature Gran # (Auto) 0.00 (0.00-0.02) K/uL Polychromasia 1+ PT (9.0-12.0) Seconds INR (0.9-1.1) Sodium (136-145) mmol/L Potassium (3.5-5.1) mmol/L Chloride (98-107) mmol/L Carbon Dioxide (21-32) mmol/L Anion Gap (3-11) BUN (6-23) mg/dl Creatinine (0.6-1.2) mg/dl Est Cr Clr Drug Dosing ml/min Est GFR ( Amer) ml/min Est GFR (Non-Af Amer) ml/min BUN/Creatinine Ratio (10-20) Glucose (70-99(Fasting)) mg/dl Calcium (8.5-10.1) mg/dl Phosphorus (2.5-4.9) mg/dl Magnesium (1.7-2.4) mg/dl Blood Type O Negative Antibody Screen NEGATIVE Crossmatch See Detail Medications Administered Current Inpatient Medications Albuterol (Albuterol Hfa 8 Gm Inhaler) 2 puffs INH BID PRN PRN Reason: Wheezing Stop: 12/11/21 20:59 Aspirin (Aspirin 81 Mg Ectab) 81 mg PO [facility] Stop: 12/09/21 08:59 Last Admin: 11/26/21 13:42 Dose: 81 mg Documented by: Carvedilol (Carvedilol 12.5 Mg Tab) 12.5 mg PO BID [facility] Stop: 12/08/21 20:59 Last Admin: 11/25/21 15:46 Dose: Not Given Documented by: Clopidogrel Bisulfate (Clopidogrel Bisulfate 75 Mg Tab) 75 mg PO [facility] Stop: 12/12/21 08:59 Last Admin: 11/26/21 13:38 Dose: Not Given Documented by: Diclofenac Sodium (Diclofenac Sod 1% Gel 100 Gm Tube) 4 gm EXT QID [facility] Stop: 12/11/21 16:59 Last Admin: 11/26/21 20:48 Dose: Not Given Documented by: Ferrous Sulfate (Ferrous Sulfate 325 Mg Tab) 325 mg PO Q48H [facility] Stop: 12/23/21 08:59 Last Admin: 11/24/21 08:07 Dose: 325 mg Documented by: Heparin Sodium (Porcine) (Heparin Sod 5,000 Unit/0.5 Ml Vial) 5,000 units SQ Q12 [facility] Stop: 12/08/21 20:59 Last Admin: 11/25/21 15:47 Dose: Not Given Documented by: Sodium Chloride (Nss 1000ml) 1,000 mls @ 150 mls/hr IV .Q6H40M [facility] Stop: 12/25/21 12:59 Last Admin: 11/27/21 02:41 Dose: 150 mls/hr Documented by: Losartan Potassium (Losartan Potassium 50 Mg Tab) 50 mg PO QAM [facility] Stop: 12/09/21 08:59 Last Admin: 11/25/21 15:48 Dose: Not Given Documented by: Melatonin (Melatonin 3 Mg Tab) 3 mg PO HS PRN PRN Reason: Sleep Stop: 12/26/21 21:28 Last Admin: 11/26/21 21:36 Dose: 3 mg Documented by: Miscellaneous (Remove Nicoderm Patch) 1 ea N/A DAILY@0859 [facility] Stop: 12/11/21 08:58 Last Admin: 11/26/21 10:12 Dose: 1 ea Documented by: Nicotine (Nicotine 7 Mg/24 Hr Tdsy) 7 mg TD QAM [facility] Stop: 12/11/21 08:59 Last Admin: 11/26/21 13:38 Dose: 7 mg Documented by: Oxycodone/Acetaminophen (Oxycodone/Acetaminophen 10-325 Tab) 1 tab PO Q6H [facility] Stop: 12/08/21 11:59 Last Admin: 11/26/21 23:46 Dose: 1 tab Documented by: Pantoprazole Sodium (Pantoprazole 40 Mg Tab) 40 mg PO BID [facility] Stop: 12/08/21 20:59 Last Admin: 11/26/21 20:49 Dose: 40 mg Documented by: Polyethylene Glycol (Polyethylene (Miralax) 17 Gm Pack) 17 gm PO DAILY PRN PRN Reason: Constipation Stop: 12/13/21 10:08 Last Admin: 11/13/21 10:26 Dose: 17 gm Documented by: Rosuvastatin Calcium (Rosuvastatin Calcium 20 Mg Tab) 20 mg PO QAM [facility] Stop: 12/09/21 08:59 Last Admin: 11/26/21 13:42 Dose: 20 mg Documented by: Tramadol HCl (Tramadol Hcl 50 Mg Tablet) 50 mg PO Q6H PRN PRN Reason: pain Stop: 12/08/21 18:12 Last Admin: 11/24/21 22:42 Dose: 50 mg Documented by: Umeclidinium/Vilanterol (Umeclidinium/Vilanterol 62.5/25mcg 7 Puffs/Inhaler) 1 puffs INH DAILY [facility] Stop: 12/13/21 11:14 Last Admin: 11/26/21 12:21 Dose: 1 puffs Documented by:
[2021-11-27] MEDS: oxyCODONE/ACETAMINOPHEN 10-325 TAB PO SCH ×4 (07:54→23:13)
[2021-11-27] MEDS: CLOPIDOGREL BISULFATE 75 MG TAB PO SCH (09:17)
[2021-11-27] MEDS: carvediloL 12.5 MG TAB PO SCH ×2 (09:17→20:50)
[2021-11-27] MEDS: PANTOprazole 40 MG TAB PO SCH ×2 (09:18→20:50)
[2021-11-27] MEDS: FERROUS SULFATE 325 MG TAB PO SCH (09:18)
[2021-11-27] MEDS: ASPIRIN 81 MG ECTAB PO SCH (09:19)
[2021-11-27] MEDS: DICLOFENAC SOD 1% GEL 100 GM TUBE EXT SCH ×4 (09:19→23:11)
[2021-11-27] MEDS: NICOTINE 7 MG/24 HR TDSY TD SCH (09:19)
[2021-11-27] MEDS: ROSUVASTATIN CALCIUM 20 MG TAB PO SCH (09:20)
[2021-11-27] MEDS: UMECLIDINIUM/VILANTEROL 62.5/25MCG 7 PUFFS/INHALER INH SCH (09:21)
[2021-11-27] MEDS: MELATONIN 3 MG TAB PO PRN (20:50)
[2021-11-28 05:35] LABS: Basophils # (auto) 0.03 K/uL (0-0.2); Basophils % (auto) 0.4 %; Eosinophils # (auto) 0.11 K/uL (0-0.5); Eosinophils % (auto) 1.5 %; Hematocrit (blood only) 27.2 % (37-47); Hemoglobin 8.3 g/dL (12.0-16.0); Immature Granulocytes # (auto) 0.01 K/uL (0.00-0.02); Immature Granulocytes % (auto) 0.1 %; Lymphocytes % (auto) 11.9 %; Mean Corpuscular Hemoglobin 27.7 pg (25-34); Mean Corpuscular Hgb Conc 30.5 g/dL (32-36); Mean Corpuscular Volume 90.7 fL (80-100); Monocytes # (auto) 0.69 K/uL (0.11-0.59); Monocytes % (auto) 9.1 %; Neutrophils # (auto) 5.84 K/uL (1.4-6.5); Platelet Count 349 K/uL (130-400); RDW Coefficient of Variation 17.3 % (11.5-14.5); RDW Standard Deviation 56.3 fL (36.4-46.3); White Blood Count 7.58 K/uL (4.8-10.8)
[2021-11-28] MEDS: oxyCODONE/ACETAMINOPHEN 10-325 TAB PO SCH ×2 (06:26→12:44)
--- NOTE | 2021-11-28 08:04 | Hospitalist Progress Note ---
Date of Service November 28, 2021 Assessment & Plan (1) Gangrene of toe of right foot: Plan: 66yo female with PAD, HLD, COPD, current smoker, HTN, CVA, chronic foot wounds admitted for worsening of infection of right foot and development of gangrene, s/p AKA (11/16/21), now with development of left foot ischemia due to severe PAD. Left foot ischemia secondary to severe PAD Dr. Dias consulted; patient taken for angioplasty with stent placement (11/25) Trend hgb; do not suspect active bleeding at present Intra-Op hemoglobin was 7.1; has since risen to 8.3 Resume ASA, clopidogrel, carvedilol Recommend smoking cessation Pain control plan: Oxycodone 10mg q6h scheduled Moderate/severe pain: tramadol 50mg PO q6h prn Trend CBC Chronic wound of right foot with development of gangrene s/p AKA RLE [id number] amputation (11/16/21) performed due to gangrene of right foot; procedure tolerated well In the setting of a history of RLE ulcers and osteomyelitis treated with bactrim (course completed 11/11/21) Course of zosyn completed (11/19/21) Continue plavix, statin Outpatient vascular surgery follow-up in 2-3 weeks for staple removal Dyspnea, hypoxia, newly-diagnosed COPD Extensive history of smoking and atherosclerotic disease CTA negative for PE, RLE doppler negative for DVT PFT (11/12): FEV1 0.86, FEV1/FVC 0.57; meets GOLD criteria for airflow limitation of stage 1 COPD Patient not usually on O2 at baseline; currently maintaining adequate oxygenation on room air Continue anoro daily, albuterol PRN Carotid artery disease History of left total occlusion s/p endarterectomy Neck CTA (11/22/21) shows: -Complete occlusion of the left common carotid artery with minimal reconstituted flow in the distal internal carotid artery, unchanged -Right carotid endarterectomy with luminal irregularity and slightly increased stenosis compared to prior exam. However, this does not appear to be hemodynamically significant -Right external carotid artery near total occlusion, unchanged Continue rosuvastatin HTN Holding antihypertensives due to hypotension post-angiogram HLD Continue home rosuvastatin. Tobacco abuse Long smoking history, certainly a major contributor to patient's vascular disease Continue nicotine patch Disposition Patient not vaccinated for covid-19 which is complicating process of rehab referral Patient was accepted to [facility] but they would require her to pay her insurance deductible upfront ($3250) which patient cannot afford CM continuing to explore other options Code status: full code FEN: heart healthy diet DVT ppx: holding medical prophylaxis resume per cards Dispo: PCU s/p angioplasty (2) S/P above knee amputation: (3) PAD (peripheral artery disease): (4) Hypertension: (5) Tobacco abuse: (6) Ischemic ulcer of left foot: Admission and Anticipated Discharge Date Admission Date: November 08, 2021 Subjective Patient seen and evaluated at bedside this morning. No acute events overnight. Patient feels well today and complains only of left foot pain, which has improved since yesterday. No new symptoms or concerns. Patient denies CP, SOB, abdominal pain, nausea, vomiting, lightheadedness, dizziness, and diarrhea. Review of Systems Review of Systems: See HPI Physical Exam Physical Exam: Constitutional: well-appearing, no acute distress HEENT: NCAT, no conjunctival injection, MMM CV: regular rhythm, no murmur appreciated, extremities well-perfused, no LE edema Resp: CTABL, no wheezes/rales/rhonchi appreciated, no increased work of breathing MSK: RLE above-knee amputation noted, dressing in place, CDI, nontender; left foot with a couple subcentimeter areas of black discoloration and ulceration, no active bleeding, no cyanosis Neuro: alert, oriented, no focal neurologic deficit appreciated Results & Data Results & Data ([facility]) Vital Signs (Past 12 Hours) Vital Signs Temp Pulse Pulse Resp BP BP Pulse Ox 11/28/21 03:56 36.5 C 81 16 178/97 H 96 11/27/21 23:34 36.6 C 88 23 142/62 H 92 11/27/21 20:10 36.8 C 89 18 152/73 H 92
--- NOTE | 2021-11-28 08:52 | Vascular Medicine ProgressNote ---
Date of Service November 28, 2021 Assessment & Plan (1) PAD (peripheral artery disease): Plan: - Post procedure day 3 following LT EIA/LARRY OPERATOR stenting, mid SFA angioplasty 2. RT proximal LARRY OPERATOR perforation/hemorrhage post covered stent placement 3. Post RT AKA 4 Blood loss anemia 5. COPD 6. Carotid artery stenosis --right CEA, left carotid occlusion 7. Prior CVA 8. PUD with prior GI bleed Blood counts stable LLE distal perfusion improved post procedure. -Resume home losartan, DVT prophylaxis -Continue DAPT with ASA, clopidogrel - OK by vascular medicine for discharge whenever possible from a disposition standpoint. 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 Baker. Admission and Anticipated Discharge Date Admission Date: November 08, 2021 Subjective No new concerns this morning. Still with some pain in her toes. Flank pain improved. Tolerating diet. Tele reviewed - brief SVT, no other events. Review of Systems Review of Systems: All systems reviewed & are unremarkable except as noted in HPI & below Physical Exam Physical Exam: General: Thin, no acute distress, comfortable Lungs: Clear anteriorly Cardiac: Regular, no murmur Abdomen: Abd/flanks soft, Mild tenderness on RT. Diffuse ecchymosis on bilateral flanks Psych: Alert and oriented Extremities/Vascular: Post AKA, incision blayne in place. Appears well perfused. No surrounding erythema -- 2+ LT femoral, 2+ popliteal pulse --Left foot non-palpable DP/PT --Left foot warm, sluggish cap refill --Small areas of black eschar over distal tip of first/2nd/third digits. Minimal surrounding erythema. --No edema Results & Data ([facility]) Vital Signs (Past 12 Hours) Vital Signs Temp Pulse Resp BP BP Pulse Ox 11/28/21 03:56 97.7 F 81 16 178/97 H 96 11/27/21 23:34 97.9 F 88 23 142/62 H 92 PG Care Time/CCT Total # of Minutes Spent Total Time Spent with Patient: Total time spent is greater than 50% in coordination of care (as documented) at patient's floor/unit and/or counseling patient: Coding Level of Care Code 33553 Subseq Hosp Care Lvl 3 Diagnoses PAD (peripheral artery disease) I73.9
[2021-11-28] MEDS: PANTOprazole 40 MG TAB PO SCH (10:29)
[2021-11-28] MEDS: carvediloL 12.5 MG TAB PO SCH (10:29)
[2021-11-28] MEDS: ROSUVASTATIN CALCIUM 20 MG TAB PO SCH (10:30)
[2021-11-28] MEDS: NICOTINE 7 MG/24 HR TDSY TD SCH (10:30)
[2021-11-28] MEDS: FERROUS SULFATE 325 MG TAB PO SCH (10:30)
[2021-11-28] MEDS: CLOPIDOGREL BISULFATE 75 MG TAB PO SCH (10:30)
[2021-11-28] MEDS: ASPIRIN 81 MG ECTAB PO SCH (10:30)
[2021-11-28] MEDS: UMECLIDINIUM/VILANTEROL 62.5/25MCG 7 PUFFS/INHALER INH SCH (10:31)
[2021-11-28] MEDS: DICLOFENAC SOD 1% GEL 100 GM TUBE EXT SCH ×2 (10:31→12:44)
[2021-11-28] MEDS: HEPARIN SOD 5,000 UNIT/0.5 ML VIAL SQ SCH ×2 (10:31→11:35)
[2021-11-28] MEDS: LOSARTAN POTASSIUM 50 MG TAB PO SCH (11:00)
[2021-11-28] MEDS ORDERED: CEROVITE ADV FORMULA TAB PO SCH (11:30)
--- NOTE | 2021-11-28 12:43 | Discharge Summary ---
Date of Service November 28, 2021 Admission Exam Per Admitting Provider PHYSICAL EXAM: General: awake, alert, no apparent distress Head: Normocephalic, atraumatic ENT: PERRL, EOMI, no pharyngeal exudate, mucous membranes moist Neuro: AAO x 3, speech clear and appropriate, strength intact bilaterally 5/5, no pronator drift Chest: equal rise and fall of the chest, no accessory muscle use, no heaves or thrills, scattered wheeze and crackles bilaterally Cardiac: Regular rate and rhythm, telemetry reviewed-NSR, skin warm dry, cap refill <3 seconds, peripheral pulses +2 no JVD, no murmur, no edema- right groin with palpable pulse, and bruit popliteal palpable GI: NABS x 4 quadrants, soft, nontender to palpation, no rebound, guarding or tenderness : Spontaneously voiding, no pain, no CVA tenderness, Extremities: Bilateral lower extremity edema right calf greater than left calf, hard woody edema on right leg to mid mcgowan, left foot rubor in color with small ulceration on left 4th toe Psych: Normal mood and affect Skin: no rash or erythema Principal Diagnosis Gangrene of left foot s/p [id number] amputation, right foot ischemia s/p angioplasty and stent placement, peripheral artery disease Discharge Exam Constitutional: well-appearing, no acute distress HEENT: NCAT, no conjunctival injection, MMM CV: regular rhythm, no murmur appreciated, extremities well-perfused, no LE edema Resp: CTABL, no wheezes/rales/rhonchi appreciated, no increased work of breathing MSK: RLE above-knee amputation noted, dressing in place, CDI, nontender; left foot with a couple subcentimeter areas of black discoloration and ulceration, no active bleeding, no cyanosis Neuro: alert, oriented, no focal neurologic deficit appreciated Discharge Data Allergies Allergy/AdvReac Type Severity Reaction Status Date / Time No Known Allergies Allergy Mild Verified 11/08/21 15:21 Consultations 11/09/21 08:31 Consult Cardiology Routine 11/09/21 10:01 Consult Vascular Surgery Routine 11/10/21 23:06 Consult Orthopedic Surgery Routine 11/23/21 10:30 Consult Vascular Surgery Routine Procedures Performed Operation Date: 11/09/21 12:30 <No data on this case meets the specified criteria> Operation Date: 11/11/21 13:00 <No data on this case meets the specified criteria> Operation Date: 11/16/21 12:00 Actual Procedures p Right Above Knee Amputation(Right) - Cash Baker MD Operation Date: 11/25/21 07:30 Actual Procedures p Angio Extremity Unilateral - Andrew Dias MD s Ultrasound Vascular Access - Andrew Dias MD s Iliac Stent Balloon - Andrew Dias MD s Femoral Popliteal Balloon - Andrew Dias MD s Placement Art Occlusive Device - Andrew Dias MD Operation Date: 11/25/21 11:15 Actual Procedures p Angio Extremity Unilateral - Andrew Dias MD s Ultrasound Vascular Access - Andrew Dias MD s Angiogram Abdomen Aorta - Andrew Dias MD p Iliac Stent Balloon - Andrew Dias MD s Intro of Catheter, Aorta - Andrew Dias MD s Placement Art Occlusive Device - Andrew Dias MD Ordered Studies 11/08/21 15:54 US arterial duplex LE RT Stat 11/09/21 09:50 CL Cath Imgs for PACS use only Urgent 11/09/21 11:16 CT angio chest PE protocol Routine 11/09/21 16:50 US venous doppler LE RT Routine 11/11/21 07:38 CT knee RT wo con Routine 11/12/21 17:03 CT pelvis wo con Routine 11/16/21 12:49 US - OR guided needle placemen Routine 11/21/21 08:24 US carotid doppler BI Routine 11/22/21 08:32 CT angio neck with con Routine 11/23/21 15:00 US arterial duplex LE LT Urgent 11/25/21 07:34 CL Cath Imgs for PACS use only Routine 11/25/21 11:16 CL Cath Imgs for PACS use only Routine Hospital Course (1) Ischemic ulcer of right foot: Left foot ischemia secondary to severe PAD Vascular consulted; patient taken for angioplasty with stent placement (11/25) Trend Hgb; do not suspect active bleeding at present Intraoperative Hgb was 7.1; has since risen to 8.3 Resume ASA, clopidogrel, carvedilol Recommend smoking cessation Pain control plan: Oxycodone 10mg q6h scheduled Moderate/severe pain: tramadol 50mg PO q6h prn Trend CBC Chronic wound of right foot with development of gangrene s/p AKA RLE [id number] amputation (11/16/21) performed due to gangrene of right foot; procedure tolerated well In the setting of a history of RLE ulcers and osteomyelitis treated with bactrim (course completed 11/11/21) Course of zosyn completed (11/19/21) Continue plavix, statin Outpatient vascular surgery follow-up in 2-3 weeks for staple removal Dyspnea, hypoxia, newly-diagnosed COPD Extensive history of smoking and atherosclerotic disease CTA negative for PE, RLE doppler negative for DVT PFT (11/12): FEV1 0.86, FEV1/FVC 0.57; meets GOLD criteria for airflow limitation of stage 1 COPD Patient not usually on O2 at baseline; currently maintaining adequate oxygenation on room air Continue anoro daily, albuterol PRN Carotid artery disease History of left total occlusion s/p endarterectomy Neck CTA (11/22/21) shows: -Complete occlusion of the left common carotid artery with minimal reconstituted flow in the distal internal carotid artery, unchanged -Right carotid endarterectomy with luminal irregularity and slightly increased stenosis compared to prior exam. However, this does not appear to be hemodynamically significant -Right external carotid artery near total occlusion, unchanged Continue rosuvastatin HTN Holding antihypertensives due to hypotension post-angiogram Resume upon discharge HLD Continue home rosuvastatin Tobacco abuse Long smoking history, certainly a major contributor to patient's vascular disease Continue nicotine patch Total Time Total Time Spent Total Time Spent (In Minutes): <30 Discharge Plan Discharge Items Patient Disposition[facility] Reason For Visit: DRY GANGRENE TO RIGHT FOOT Discharge Diagnosis: Gangrene, peripheral artery disease, left foot ischemia, RLE [id number] amputation Activity: Resume your previous activity Non-emergency contact: Primary Care Provider and Surgeon Call non-emergency contact if: you have any medication questions, your symptoms worsen, your pain is not controlled and you have a fever Follow-up/Referrals: Go Landeros CRNP [Primary Care Provider] - Diet: Heart Healthy Addtl Attending Provider Instructions: Left foot ischemia secondary to severe PAD Vascular consulted; patient taken for angioplasty with stent placement (11/25) Trend Hgb; do not suspect active bleeding at present Intraoperative Hgb was 7.1; has since risen to 8.3 Resume ASA, clopidogrel, carvedilol Recommend smoking cessation Pain control plan: Oxycodone 10mg q6h scheduled Moderate/severe pain: tramadol 50mg PO q6h prn Trend CBC Chronic wound of right foot with development of gangrene s/p AKA RLE [id number] amputation (11/16/21) performed due to gangrene of right foot; procedure tolerated well In the setting of a history of RLE ulcers and osteomyelitis treated with bactrim (course completed 11/11/21) Course of zosyn completed (11/19/21) Continue plavix, statin Outpatient vascular surgery follow-up in 2-3 weeks for staple removal Dyspnea, hypoxia, newly-diagnosed COPD Extensive history of smoking and atherosclerotic disease CTA negative for PE, RLE doppler negative for DVT PFT (11/12): FEV1 0.86, FEV1/FVC 0.57; meets GOLD criteria for airflow limitation of stage 1 COPD Patient not usually on O2 at baseline; currently maintaining adequate oxygenation on room air Continue anoro daily, albuterol PRN Carotid artery disease History of left total occlusion s/p endarterectomy Neck CTA (11/22/21) shows: -Complete occlusion of the left common carotid artery with minimal recon stituted flow in the distal internal carotid artery, unchanged -Right carotid endarterectomy with luminal irregularity and slightly increased stenosis compared to prior exam. However, this does not appear to be hemodynamically significant -Right external carotid artery near total occlusion, unchanged Continue rosuvastatin HTN Holding antihypertensives due to hypotension post-angiogram Resume upon discharge HLD Continue home rosuvastatin Tobacco abuse Long smoking history, certainly a major contributor to patient's vascular disease Continue nicotine patch Pending Studies at Discharge: No Stand-Alone Forms: My [facility] Skilled Items Patient informed of condition?: Yes DNR: No Discharge Level of Care: Skilled Communicable Disease: No Discharge Prognosis: Stable Lines: None Urinary Catheter: No Medications and DC Order Prescriptions: New heparin, porcine (PF) 5,000 unit/0.5 mL Syringe 5,000 unit subcut Q12 30 Days Qty: 30 RF: 0 Continued ferrous sulfate 325 mg (65 mg iron) tablet 325 mg PO TID Qty: 90 RF: 5 pantoprazole [Protonix] 40 mg tablet,delayed release (DR/EC) 40 mg PO BID Qty: 60 RF: 5 clopidogrel 75 mg tablet 75 mg PO QAM Qty: 30 RF: 3 rosuvastatin [Crestor] 20 mg tablet 20 mg PO QAM Qty: 30 RF: 3 tramadol 50 mg tablet 50 mg PO Q6H PRN (Reason: pain) Qty: 60 RF: 0 aspirin 81 mg tablet,delayed release (DR/EC) 81 mg PO QAM Qty: 90 RF: 1 carvedilol [Coreg] 12.5 mg tablet 12.5 mg PO BID RF: 0 thiamine HCl (vitamin B1) 100 mg tablet 100 mg PO QAM RF: 0 losartan 50 mg tablet 50 mg PO QAM RF: 0 Anoro Ellipta 62.5-25 mcg/actuation blister with device 1 inh inhalation DAILY PRN (Reason: Shortness Of Breath Or Wheezing) RF: 0 acetaminophen 325 mg tablet 650 mg PO Q4H PRN (Reason: Pain) RF: 0 Discharge Orders: Discharge Order (Routine); Ordered 11/28/21 Ordered By: Filipe Knapp Admission Data Admit Date/Time: 11/08/21 16:17 Attending Provider: Timur Lay Admit Provider: Uriah Fontanez Primary Care Provider: Go Landeros Other Providers: [facility] ; Psychiatric ; Mera Mike ; Andrew Dias ; Cash Baker ; Ketan Hanson Supervising Physician Co-Signing Physician Notes I personally examined the patient and verified all finney points of history and exam, discussed case, and agree with decision making with Dr Knapp feeling ok, foot without new pain stump healing well feels up to going to rehab. no new complaints vitals noted nad heent nc at mmm breathing unlabored no accessory muscles good effort. R leg stump c/d/i no erythema; L foot with (+) cap refill scattered arterial insufficency ulcers without surrounding erythema Left foot ischemia s/p revascularization (11/25) - interventional vascular consult - Continue ASA/plavix, rosuvastatin. Pain management reasonable Gangrene of right foot s/p AKA (11/16) - continue ASA/plavix, pain management as noted - for rehab Tobacco use - prior hospital team had extensive conversation, patient willing w/ NRT and nicorette on discharge COVID-19 vaccination - previous team reviewed in detail the benefits of vaccination including reduced hospitalization and severity of disease which is concerning with her medical history as well as limitations in placement that could delay discharge. Offered gently to answer any questions that she might have that would help address barriers to vaccination and patient declines further discussion despite encouragement. Resident Activity Tracking Resident Involvement: Resident Care Provided Care Provided: Adult Hospital Medicine
--- NOTE | 2021-11-28 13:09 | Billing Data ---
Date of Service November 28, 2021 Coding Level of Care Code D/C DAY MANAGEMENT <30 MINS
--- NOTE | 2021-12-06 15:15 | Coding Query ---
Your help is needed for correct coding of this account; please clarify if the patients RT proximal [employer] perforation/hemorrhage (documented on 11/25 and on Vascular Progress Notes 11/26 and 11/28): ( ) expected out of the surgery ( ) unexpected complication from the surgery (X )other please specify Thank you Lacy VILLEDA
--- NOTE | 2021-12-06 15:17 | Coding Query ---
CODING QUERY To promote full compliance with coding requirements relating to patient care, provider participation is requested in all cases of auditing coder uncertainty. Please assist us with the question(s) below: Coding Question(s): Blood loss anemia is documented on the Vascular Progress Notes on 11/26 and 11/28. Please specify further below, in your clinical opinion, regarding blood loss anemia: ( ) Acute Blood Loss Anemia ( ) Chronic Blood Loss Anemia (X ) Unspecified Blood Loss Anemia ( ) Other Blood Loss Anemia: Please Specify Physician's Response(s): Thank you Lacy Torres Principal Diagnosis: "that condition established after study, to be chiefly responsible for occasioning the admission of the patient to the hospital for care." Co-Existing Principal Diagnosis: "when two or more diagnoses equally meet the criteria for principal diagnosis as determined by the circumstances of admission, diagnostic work up, and/or therapy provided, and the Alphabetic Index, Tabular List, or another coding guideline does not provide sequencing direction, any one of the diagnoses may be sequenced first." "When the physician has documented what appears to be a current diagnosis in the body of the record, but has not included the diagnosis in the final diagnostic statement, the physician should be asked whether the diagnosis should be added." (Source Coding [facility] 2 QTR90. p3-4) RONAL
== END 2021-11-28 15:45 | DRG 240 ==
LOC: ED 13:16 → 3E 16:17 → SUATTDRO 16:17 → 3E 18:00 → 1E 11-25 15:13
PROC: CLB.AEU (2021-11-25 07:30)

== ENCOUNTER 2022-10-10 08:44 | Inpatient (IN) ==
--- NOTE | 2022-09-29 10:45 | PAT Medication Instructions ---
Medication Instructions Date of Service September 29, 2022 Home Medications Medication Instructions Recorded aspirin 81 mg tablet,delayed 81 mg PO QAM #90 tabs 12/30/21 release clopidogrel 75 mg tablet 75 mg PO QAM #30 tabs 12/30/21 rosuvastatin 20 mg tablet (Crestor) 20 mg PO QAM #30 tabs 04/24/22 umeclidinium 62.5 mcg-vilanterol 1 inh inhalation DAILY Shortness 07/06/22 25 mcg/actuation powdr for Of Breath Or Wheezing #60 ea inhalation (Anoro Ellipta) tramadol 50 mg tablet 50 mg PO Q6H PRN pain #60 tabs 09/06/22 aspirin 81 mg tablet,delayed release 81 mg PO QAM clopidogrel 75 mg tablet 75 mg PO QAM rosuvastatin 20 mg tablet (Crestor) 20 mg PO QAM umeclidinium 62.5 mcg-vilanterol 25 mcg/actuation powdr for inhalation (Anoro Ellipta) 1 inh inhalation DAILY Shortness Of Breath Or Wheezing tramadol 50 mg tablet 50 mg PO Q6H PRN pain carvedilol 12.5 mg tablet (Coreg) 3.125 mg PO BIDM losartan 25 mg tablet 12.5 mg PO QAM ASK your prescriber and surgeon aspirin 81 mg tablet,delayed release 81 mg PO QAM clopidogrel 75 mg tablet 75 mg PO QAM DO NOT take the morning of surgery losartan 25 mg tablet 12.5 mg PO QAM Take morning of surgery With a small sip of water, OTHERWISE NOTHING TO EAT OR DRINK AFTER MIDNIGHT: rosuvastatin 20 mg tablet (Crestor) 20 mg PO QAM umeclidinium 62.5 mcg-vilanterol 25 mcg/actuation powdr for inhalation (Anoro Ellipta) 1 inh inhalation DAILY Shortness Of Breath Or Wheezing tramadol 50 mg tablet 50 mg PO Q6H PRN pain (if needed) carvedilol 12.5 mg tablet (Coreg) 3.125 mg PO BIDM Take evening before surgery carvedilol 12.5 mg tablet (Coreg) 3.125 mg PO BIDM Other Notes If you have any questions please call us at [phone] or [phone] or [phone] or [phone]
--- NOTE | 2022-10-02 13:28 | Anesthesiology Consultation ---
Date of Service October 02, 2022 Assessment & Plan (1) Encounter for pre-operative examination: - COVID screening: Per assessment on 10/02: No known COVID-19 positive contacts or current COVID-19 related symptoms. Travel screen negative. At surgeon discretion if preop Covid testing being done. - Ventricular asystolia (2020): Per cardiology consult 04/14/21, "elective right carotid endarterectomy yesterday. She was noted to be severely hypertensive and briefly admitted to the intensive care unit for urgent treatment. She is subsequently transferred to the telemetry mancuso and on monitoring early this morning was noted to have episodes of ventricular asystole.. The patient did have an episode of ventricular asystole for up to 4 seconds. She actually had 3 episodes which occurred several minutes apart early this morning. There is evidence of sinus node slowing leading up to these episodes. It is more difficult to discern if there was any change in the [place] interval. She cannot recall the episodes or any symptoms associated with these episodes. I am waiting for confirmation, but suspect that the patient was sleeping at the time. She reported sleeping early this morning because she was up all night. These episodes are taken in the context of recent admission for dizziness and presyncope. However, she was monitored throughout that admission. She had persistent symptoms without evidence of rhythm disturbance. Alcohol abuse and hypertension as well as the diagnosis of severe carotid stenosis was thought to play a role in her symptoms. She has a narrow complex QRS. I believe these episodes would likely vagally mediated. She did receive several additional doses of beta-blockade yesterday in an attempt to control her blood pressure. I think if she is ambulatory with normal heart rates no additional intervention or monitoring is currently required." - S/P Right AKA (11/16/21): LMA#3 + PNB at [facility]. No issues noted per post-op anesthesia progress note. - Surgical question: Pt unsure which side surgery is being performed on. Per review of most recent available vascular surgeon note, it appears plan is for Right Trans Carotid Artery Revascularization which is the surgery that is currently booked in [email or web address]. Maricruz at surgeon's office confirms surgery side is right side- she states she will clarify with patient/answer any additional questions she may have. - ASA/clopidogrel: instructions per surgeon/prescriber- per pt, advised to continue perioperatively - Cardiology office visit (09/20/22): ".. not taking her Coreg or losartan. She stopped taking her medications in March because she did not know why they were prescribed to her.. not having any anginal symptoms. However, assessment of her functional capacity is really not possible given her AKA and sedentary lifestyle. With her carotid disease, she is not a good candidate for stress testing. She had an EKG performed in the office today which did show some mild lateral ST depressions. She is high risk to proceed with her TCAR, at least 5% risk of cardiac complication perioperatively. I will have her get an echo prior to her procedure. She was agreeable to resuming the losartan and Coreg but I will have her start at lower doses." Echo done 09/30/22- unremarkable. Chart Review Chart Review: Acceptable Risk for Surgery (pending evaluation AM DOS) and Patient seen in Pre Admission Testing Teaching & Discussion Pre-Anesthesia Teaching/Discussion Notes: Instructed NPO after midnight before surgery,except medications with 15 cc of water. Medication instructions provided according to the PAT guidelines. History Surgery Operation Date: 10/10/22 08:00 Proposed Procedures p Right Trans Carotid Artery Revascularization - Cash Baker MD Height/Weight Height: 5 ft 2 in Weight: 52.6 kg Allergies Allergy/AdvReac Type Severity Reaction Status Date / Time No Known Allergies Allergy Mild Verified 09/28/22 13:18 Medications Home Medications Medication Instructions Recorded Confirmed Last Taken aspirin 81 mg tablet,delayed 81 mg PO QAM #90 tabs 12/30/21 09/28/22 Unknown release clopidogrel 75 mg tablet 75 mg PO QAM #30 tabs 12/30/21 09/28/22 Unknown rosuvastatin 20 mg tablet (Crestor) 20 mg PO QAM #30 tabs 04/24/22 09/28/22 Unknown umeclidinium 62.5 mcg-vilanterol 1 inh inhalation DAILY Shortness 07/06/22 09/28/22 Unknown 25 mcg/actuation powdr for Of Breath Or Wheezing #60 ea inhalation (Anoro Ellipta) tramadol 50 mg tablet 50 mg PO Q6H PRN pain #60 tabs 09/06/22 09/28/22 Unknown carvedilol 12.5 mg tablet (Coreg) 3.125 mg PO BIDM 09/28/22 09/28/22 Unknown losartan 25 mg tablet 12.5 mg PO QAM 09/28/22 09/28/22 Unknown Past Medical History Medical History CAD (coronary artery disease) Remote LAD stent, repeat cath 2004 with 20% in stent restenosis Carotid artery disease Neck CTA 07/10/22- Status post right carotid endarterectomy. Luminal irregularity and narrowing of the proximal to mid cervical right internal carotid artery with approximate 70% stenosis which has progressed since prior CTA. 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 Occlusion with distal reconstitution versus severe stenosis of the right external carotid artery. Chronic anemia COPD (chronic obstructive pulmonary disease) Per records, pt denies CVA (cerebral vascular accident) 04/2021, residual memory issues + right hand weakness, no neurologist GERD (gastroesophageal reflux disease) Controlled History of GI bleed Hypertension Ischemic ulcer of right foot Follows with Wound [facility] Left renal mass Left side, concern for RCC Pt unaware PAD (peripheral artery disease) S/p stent to right LE (February 2021) Bilateral iliac artery stenosis Poor historian S/P CVA Rectal mass Per records, pt unaware Vasculopathy Ventricular asystolia 2020, follows with [facility] cardio Exercise / Class Metabolic Activity IV < 2 Limit ADL/Bedbound Past Family History Family History Mother , age 70 of lung cancer Diabetes Lung cancer Hypertension Father , age 52 of complications of vascular surgery. Lung cancer PAD (peripheral artery disease) Denies family history of Ovarian cancer Prostate cancer Myocardial infarction Breast cancer Colorectal cancer Past Surgical History Surgical History 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) Right AKA (11/16/21): LMA#3 + PNB at [facility]. No issues noted per post-op anesthesia progress note. H/O exploratory laparotomy (01/22/21) Exploratory laparotomy, oversew perforated duodenal ulcer, abdominal washout. Dr. Craig 01/22/2021 H/O tubal ligation H/O vascular surgery 2 stents to right leg [facility] February 2021 History of colonoscopy History of esophagogastroduodenoscopy (EGD) (08/2021) gastritis w/ hemorrhage History of right-sided carotid endarterectomy (05/04/21) 30-40 sec chest compressions required during surgery for asystole - possible prior much shorter vagal episode in past as well S/P angioplasty (02/2021) distal SFA and [employer], RLE S/P peripheral artery angioplasty with stent placement (01/2021) RLE, iliac stent / SFA angioplasty S/P peripheral artery angioplasty with stent placement (11/2021) [employer]/Stent L SFA [place] teeth extracted Past Anesthesia History No Family Hx of Anesthesia Complications and Other (perioperative asystole (2020) during carotid endarterectomy) History of PONV No Hx of PONV and No Hx of Motion Sickness Social History Smoking Status: Current every day smoker tobacco type: cigarettes Smoking cigarettes per day: 1 PPD x 30 years Do You Dip or Chew Tobacco: No Hx Alcohol Use: No (Previous heavy ETOH use- now occasional use) Hx Substance Use: No substance use type: does not use Review of Systems Patient denies chest pain, shortness of breath, fever, chills, cough, wheezing, palpitations. Physical Exam Vital Signs VITALS BP 114/63 P 82 TEMP 98.6 SP02 96%RA RESP 18 PHYSICAL Full cervical extension range of motion. Full TMJ range of motion. TMD 3 finger breaths Mallampati Score 2 Dentition: full upper denture, lower partial Lungs: diffuse rhonchi Cardiac: regular rate and rhythm, distant heart sounds Spine: normal Carotid arteries: negative bruit Extremities: Right AKA Lab Results Anesthesia Preop Results Results Anesthesia Widget: WBC 4.81 K/ul (4.8-10.8) 10/02/22 Hgb 10.6 g/dl (12.0-16.0) L 10/02/22 Hct 35.5 % (34.1-44.9) 10/02/22 Plt 282 K/uL (130-400) 10/02/22 Na 137 mmol/L (136-145) 10/02/22 K 4.2 mmol/L (3.5-5.1) 10/02/22 Cl 105 mmol/L (98-107) 10/02/22 CO2 26 mmol/L (21-32) 10/02/22 BUN 27 mg/dl (6-23) H 10/02/22 Creat 0.51 mg/dl (0.6-1.2) L 10/02/22 Glucose Level 87 mg/dl (70-99(Fasting)) 10/02/22 PT 10.2 Seconds (9.0-12.0) 10/02/22 PTT 26.2 Seconds (21.0-31.0) 10/02/22 INR 1.0 (0.9-1.1) 10/02/22 Blood Type O Negative 10/02/22 Antibody Screen NEGATIVE 10/02/22 Testing Electrocardiogram Date: 09/20/22 NSR at 88bpm. NS STA. Chest X-Ray Date: 10/02/22 Findings: + NAD Echocardiogram Date: 09/30/22 EF 60%. Moderate LVH. Grade I DD. Mild LAD. No significant valvular disease. Top normal PAP, estimated PASP 34mmhg. No RWMA. Pulmonary Function Test Date: 11/12/21 Severe obstruction. Other Testing Neck CTA (07/10/22) Status post right carotid endarterectomy. Luminal irregularity and narrowing of the proximal to mid cervical right internal carotid artery with approximate 70% stenosis which has progressed since prior CTA. 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 Occlusion with distal reconstitution versus severe stenosis of the right external carotid artery. COVID-19 Risk Screen Screening Information COVID-19 Screen Date: 10/02/22 Exposure 21 Days Family/Household +COVID Last 21 Days: No Exposure 10 Days Any COVID Exposure Last 10 Days: No Symptoms Last 10 Days Experienced COVID Sx Last 10 Days: No + COVID 0-90 Days COVID + in Last 0-90 Days: No
[~2022-10-10 08:44] MED LIST changes: -CEFAZOLIN 1,000 MG/7.5 ML SYR IV SCH; +LACTATED RINGER'S 1,000 ML IV SCH; -SODIUM CHLORIDE 0.9% 1000ML 1,000 ML IV SCH; +ceFAZolin 2000MG 2,000 MG/15 ML SYR IV SCH
[2022-10-10] MEDS ORDERED: ONDANSETRON INJ 2 MG/ML 2 ML VIAL ONE (09:14)
[2022-10-10] MEDS ORDERED: GLYCOPYRROLATE 0.2 MG/ML VIAL ONE (09:14)
[2022-10-10] MEDS ORDERED: MIDAZOLAM HCL 1 MG/ML 2ML VIAL ONE (09:14)
[2022-10-10] MEDS ORDERED: PROPOFOL IV EMULSION 10 MG/ML 20 ML VIAL IV ONE (09:14)
[2022-10-10] MEDS ORDERED: fentaNYL citrate 100 MCG/2 ML VIAL ONE (09:14)
[2022-10-10] MEDS ORDERED: NEOSTIGMINE METHYLSULFATE 1 MG/ML 10ML VIAL ONE (09:14)
[2022-10-10] MEDS ORDERED: DEXAMETHASONE SOD INJ 4 MG/ML VIAL ONE (09:14)
[2022-10-10] MEDS ORDERED: ASPIRIN 81 MG CHEW PO STA (09:20)
[2022-10-10] MEDS ORDERED: CLOPIDOGREL BISULFATE 75 MG TAB PO ONE (09:21)
[2022-10-10] MEDS ORDERED: ONDANSETRON INJ 2 MG/ML 2 ML VIAL IV PRN (09:25)
[2022-10-10] MEDS ORDERED: HYDROmorphone INJ 2 MG/ML SYR/VIAL IV PRN (09:25)
[2022-10-10] MEDS ORDERED: ePHEDrine sulfate 50 MG/ML AMP IV PRN (09:25)
[2022-10-10] MEDS ORDERED: fentaNYL citrate 100 MCG/2 ML VIAL IV PRN (09:25)
[2022-10-10] MEDS ORDERED: ATROPINE SULFATE 0.1 MG/ML 10ML SYR IV PRN (09:25)
[2022-10-10] MEDS ORDERED: ALBUT/IPRATROP 3MG/0.5MG NEB 3 ML VIAL NEB STA (09:35)
--- NOTE | 2022-10-10 09:40 | History & Physical Report ---
Date of Service October 10, 2022 Assessment & Plan (1) Recurrent stenosis of right carotid artery: Plan: Patient admitted for a TCAR of her right carotid artery. I have discussed the risks options and benefits of the procedure with the patient. The patient understands the risks options and benefits and agrees to the procedure. History of Present Illness Chief Complaint: Recurrent right carotid artery stenosis Primary Care Provider: LAKSHMI Garza Ms Bellamy is a 67-year-old female who underwent a right carotid endarterectomy in the past. She also has a known left internal carotid artery occlusion. Her ultrasound and CT angiogram confirmed a restenosis of her right internal carotid artery just beyond its origin. She is admitted today for a TCAR of her right carotid artery Allergies Allergy/AdvReac Type Severity Reaction Status Date / Time No Known Allergies Allergy Mild Verified 10/10/22 09:05 Home Medications Medication Instructions Recorded Confirmed Type aspirin 81 mg tablet,delayed 81 mg PO QAM #90 tabs 12/30/21 10/10/22 Rx release clopidogrel 75 mg tablet 75 mg PO QAM #30 tabs 12/30/21 10/10/22 Rx rosuvastatin 20 mg tablet (Crestor) 20 mg PO QAM #30 tabs 04/24/22 10/10/22 Rx umeclidinium 62.5 mcg-vilanterol 1 inh inhalation DAILY Shortness 07/06/22 09/28/22 Rx 25 mcg/actuation powdr for Of Breath Or Wheezing #60 ea inhalation (Anoro Ellipta) tramadol 50 mg tablet 50 mg PO Q6H PRN pain #60 tabs 09/06/22 10/10/22 Rx carvedilol 12.5 mg tablet (Coreg) 3.125 mg PO BIDM 09/28/22 10/10/22 History losartan 25 mg tablet 12.5 mg PO QAM 09/28/22 10/10/22 History Past Med/Surg History Medical History CAD (coronary artery disease) Remote LAD stent, repeat cath 2004 with 20% in stent restenosis Carotid artery disease Neck CTA 07/10/22- Status post right carotid endarterectomy. Luminal irregularity and narrowing of the proximal to mid cervical right internal carotid artery with approximate 70% stenosis which has progressed since prior CTA. 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 Occlusion with distal reconstitution versus severe stenosis of the right external carotid artery. Chronic anemia COPD (chronic obstructive pulmonary disease) Per records, pt denies CVA (cerebral vascular accident) 04/2021, residual memory issues + right hand weakness, no neurologist GERD (gastroesophageal reflux disease) Controlled History of GI bleed Hypertension Ischemic ulcer of right foot Follows with Wound Clinic Left renal mass Left side, concern for RCC Pt unaware PAD (peripheral artery disease) S/p stent to right LE (February 2021) Bilateral iliac artery stenosis Poor historian S/P CVA Rectal mass Per records, pt unaware Vasculopathy Ventricular asystolia 2020, follows with [facility] cardio Surgical History 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) Right AKA (11/16/21): LMA#3 + PNB at [facility]. No issues noted per post-op a nesthesia progress note. H/O exploratory laparotomy (01/22/21) Exploratory laparotomy, oversew perforated duodenal ulcer, abdominal washout. Dr. Craig 01/22/2021 H/O tubal ligation H/O vascular surgery 2 stents to right leg [facility] February 2021 History of colonoscopy History of esophagogastroduodenoscopy (EGD) (08/2021) gastritis w/ hemorrhage History of right-sided carotid endarterectomy (05/04/21) 30-40 sec chest compressions required during surgery for asystole - possible prior much shorter vagal episode in past as well S/P angioplasty (02/2021) distal SFA and [employer], RLE S/P peripheral artery angioplasty with stent placement (01/2021) RLE, iliac stent / SFA angioplasty S/P peripheral artery angioplasty with stent placement (11/2021) [employer]/Stent L SFA [place] teeth extracted Family History Mother , age 70 of lung cancer Diabetes Lung cancer Hypertension Father , age 52 of complications of vascular surgery. Lung cancer PAD (peripheral artery disease) Denies family history of Ovarian cancer Prostate cancer Myocardial infarction Breast cancer Colorectal cancer Social History Smoking Status: Current every day smoker Tobacco Type: Cigarettes Age Started Using Tobacco: 27; packs per day: 1; Cigarettes Per Day: 1 PPD x 30 years; Second Hand Exposure: No; Do You Dip or Chew Tobacco: No; Tobacco Cessation Education Requested by Patient: No Hx Alcohol Use: No (Previous heavy ETOH use- now occasional use) Hx Substance Use: No Preferred Language: Polish Communication Ability: Effective Visual Impairment: Limited Hearing Ability: Normal Maple Products Maker Required: No Beliefs That Will Affect Care: None marital status: Current Living Situation: Spouse current occupational status: employed current occupation: [employer] How many Children do You have: 2 Other Information That Helps Us Care for You: No Feels Safe at Home: Yes Safety Concerns: Feels Safe At This Time Childhood Exposure to Second-Hand Smoke: Yes caffeine: Yes during the past year weight has: remained stable Dental Care, Regularly: No Physical Activity Frequency: Does not Exercise Physical Activity Frequency Comment: on feet at work all day Seatbelt Use: always Sunscreen Use: No Assistive Devices: Glasses Review of Systems All systems reviewed & are unremarkable except as noted in HPI & below Physical Exam Physical Exam: On exam patient is awake alert and oriented x3. She is in no apparent distress. She is neurologically intact. Her lungs are clear heart had a regular rate and rhythm abdominal exam is benign she has good femoral pulse on the left lower extremity. Ultrasound showed the 80 to 99% narrowing of the right internal carotid artery beyond the endarterectomy site. The left internal artery is chronically occluded. Results & Data ([facility]) Vital Signs (Past 12 Hours) Vital Signs Temp Resp BP BP Pulse Ox O2 Del Method 10/10/22 09:17 Room Air 10/10/22 09:08 36.7 C 20 140/65 158/78 H 95 Room Air
[2022-10-10] MEDS ORDERED: GELATIN SPONGE SZ 100 ONE (10:16)
[2022-10-10] MEDS ORDERED: THROMBIN FOR SOLN 20000 UNIT KIT ONE (10:16)
--- NOTE | 2022-10-10 12:47 | Procedure Note ---
Angiogram Post Procedure Fluoroscopy Time (minutes): 2.2 Conscious Sedation Time (minutes): 0 Radiation (mGy): 15 Contrast: 20 Post Operative Report Pre & Post Diagnosis Operation Date: 10/10/22 10:30 Pre-Op Diagnosis: Recurrent stenosis of right carotid artery Post-Op Diagnosis: Recurrent stenosis of right carotid artery I identified the patient and participated in the time-out.: Yes Procedure Operation Date: 10/10/22 10:30 Actual Procedures p Right Trans Carotid Artery Revascularization, ultrasound localization of left femoral artery and femoral vein, insertion of arterial line(Right) - Cash Baker MD Surgeon Cash Baker MD Patient Sitter Randall,PAC Estimated Blood Loss 10 Findings Consistent with Post-Op Diagnosis Specimens None Anesthesia Type General Complications none Disposition Accompanied Patient To Recovery: No Disposition: Recovery Room Indications This is a 67-year-old female who was found to have a severe restenosis of her right carotid artery. She does have a known left internal carotid artery occlusion. TCAR was recommended. I have discussed the risks options and benefits of the procedure with the patient. The patient understands the risks options and benefits and agrees to the procedure. Description of Procedure The patient was taken to the operating room and placed in supine position. After general anesthesia was accomplished the groins and right side of the neck and chest were prepped and draped in a sterile manner. Timeout was performed and the patient was identified. Using ultrasound localization the left common femoral artery was identified. It was patent with mild to moderate calcifications. Under ultrasound guidance the left common femoral artery was punctured with a micropuncture needle. Guidewire was inserted and the needle exchanged for the micropuncture sheath. This was exchanged to a 4 Eritrean sheath. 4 Eritrean sheath was then aspirated and flushed with heparinized saline and then attached to the transducer for arterial monitoring. A transverse incision was made just above the clavicle between the heads of the sternocleidomastoid. This was carried down to where the common carotid artery was identified. It was isolated and slung with an umbilical tape. It was given 5000units of heparin at that time. Ultrasound was then used to localize the left common femoral vein. The vein was patent and compressed easily. Under ultrasound guidance the left common femoral vein was punctured and the venous sheath was inserted. This was aspirated and flushed with heparinized saline. An ACT at that time was 254. Using micropuncture technique the common carotid artery was punctured. The micro sheath was inserted to 3 cm. Injection was then done showing the common internal carotid artery.. There was a significant lesion seen at the origin of the internal carotid artery on the right side extending upward into the internal carotid. The right external carotid artery was occluded most likely from the endarterectomy previously.. We then inserted the J-wire and keep it short of the bifurcation of the carotid artery. The TCAR sheath was inserted. Once it was in place and held against the artery it was sutured to the chest wall and the incision edge. We then flushed the tubing appropriately. The venous return tubing was clamped onto the TCAR sheath. It was flushed through and then attached to the venous inflow sheath in the left groin. The sheath was checked for flow. We then inserted a 4 x 3 balloon backloaded on the wire. The wire was passed through the lesion into the petrous portion of the internal carotid. The 4 balloon was then advanced to the lesion. The lesion was then predilated with the 4 mm balloon. The balloon was removed. We then inserted the 6 x 40 stent. This was deployed across the lesion without difficulty. The catheter was removed. The carotid was allowed to go 2 minutes with flow reversal. Completion angiogram was done at that time which showed a widely patent previously endarterectomized segment. There is no residual stenosis. There was no proximally to the stent that there may have been an area which had a small flap from the previous endarterectomy. It was decided to stent this area with a 8 x 30 stent. The stent was inserted over the guidewire. It was overlapped approximately centimeter and deployed without difficulty. Completion angiogram done at that time showed the area to be widely patent with no evidence of dissection or flap. At that point the common carotid artery was unclamped. The venous return tubing was clamped and removed from the TCAR sheath. The blood was allowed to flow back into the venous system. Once this was completed the sheath was pulled from the groin and pressure was applied. The arterial line was left in place for pressure monitoring postop. The TCAR sheath was then removed and the 5-0 Prolene suture securely tied. Hemostasis was noted of the puncture site. Wound was irrigated with Ancef solution. Adequate hemostasis was obtained of the wound. Once this was noted the wound was closed in usual fashion using a 3-0 Vicryl suture for the subcutaneous layer and a 4-0 subcuticular Vicryl suture for the skin edges. Dermabond was used for dressing on the neck incision and a 4 x 4 with tape was used for dressing of the puncture site in the groin..The patient left the operation room in satisfactory condition and tolerated the procedure well. All needle and sponge counts were correct at the end of the procedure. Mony Shahid Pac assisted due to lack of resident availability and was necessary for positioning, draping, retraction, wound closure deep layers, subcutaneous tissue, and skin closure and was necessary for assisting with the case. I attest to the content of the Intraoperative Record and any orders documented therein. Any exceptions are noted below.
--- NOTE | 2022-10-10 14:26 | Anesthesiology Progress Note ---
Date of Service October 10, 2022 Anesthesia Post Procedure Vital Signs Vital Signs: Temp Pulse Resp BP BP Pulse Ox O2 Del Method 10/10/22 13:56 36.5 C 86 15 155/82 H 100 Nasal Cannula 10/10/22 13:30 89 14 155/82 H 100 Oxymask 10/10/22 13:50 36.5 C 86 15 155/82 H 100 Nasal Cannula 10/10/22 13:20 95 H 15 172/91 H 100 Oxymask 10/10/22 13:14 36.3 C L 97 H 15 183/92 H 100 Oxymask 10/10/22 09:50 88 18 92 Room Air 10/10/22 09:17 Room Air 10/10/22 09:08 36.7 C 20 140/65 158/78 H 95 Room Air O2 Flow Rate 10/10/22 13:56 3 10/10/22 13:30 5 10/10/22 13:50 3 10/10/22 13:20 5 10/10/22 13:14 7 10/10/22 09:50 10/10/22 09:17 10/10/22 09:08 Transfer of Care Handoff Completed per policy Notes Mental Status: alert / awake / arousable and participated in evaluation Patient Amnestic to Procedure: Yes Nausea / Vomiting: adequately controlled Pain: adequately controlled Airway Patency, RR, SpO2: stable & adequate BP & HR: stable & adequate Hydration State: stable & adequate Anesthetic Complications: no major complications apparent and Pt Satisfied with anesthetic care Notes: pt required multiple attempts at luma iwthout success by multiple providers and using ultrasounds. pt has heavily calcified arteries. puncture sites are without hematomas but do have bruising. no sites are actively bleeding
[2022-10-10] MEDS ORDERED: traMADol HCL 50 MG TABLET PO PRN (14:34)
[2022-10-10] MEDS: LACTATED RINGER'S 1,000 ML IV SCH (14:58)
[2022-10-10] MEDS: carvediloL 3.125 MG TAB PO SCH (14:59)
--- NOTE | 2022-10-10 16:31 | Critical Care Consultation ---
Date of Consultation October 10, 2022 Assessment & Plan (1) Recurrent stenosis of right carotid artery: ICU Assessment and Plans Reason Critically Ill: 67yo Female with PMH significant for right carotid artery stenosis s/p prior endarterectomy, left carotid artery chronic occlusion, COPD, right AKA, CAD, HTN, hx. CVA admitted to the ICU s/p right carotid TCAR with Dr. Baker. Neuro - [facility] ICU: NEGATIVE Sedation: none Analgesia: Percocet Hx CVA -continue aspirin 81mg, plavix -continue rosuvastatin Cardiac - HTN -continue carvidilol -continue losartan -hold for BP systolic<100 s/p right carotid TCAR -vascular surgery following -continue ASA, plavix, carvedilol, losartan -continue cefazolin -continue LR 125ml/h Respiratory - COPD -continue anoro ellipta -on 4L O2, wean as tolerated GI - heart healthy diet RENAL/LYTES - Replace lytes as needed. - No concerns at this time. ENDO - No concerns at this time HEME - -monitor vitals, H&H as needed ID - -continue cefazolin INTEGUMENTARY - -incision site clean dry intact LINES/IV ACCESS - PIVs intact. DVT PROPHYLAXIS - -given recent vascular surgery, chemoprophylaxis of DVT contraindicated at this time. Ordered SCDs Thank you for allowing us to be part of this patient's care. Please refer to Dr. Robles's documentation for any further recommendations. (2) Status post bilateral carotid endarterectomy: (3) COPD (chronic obstructive pulmonary disease): (4) Above knee amputation of right lower extremity: (5) Tobacco abuse: (6) Carotid artery disease: (7) Hypertension: (8) History of CVA (cerebrovascular accident): History of Present Illness Reason for Consultation: s/p right carotid TCAR Requesting Physician: Dr. Robles Attending Physician: Cash Baker MD History of Present Illness 67yo Female with PMH right carotid artery stenosis s/p prior endarterectomy, left carotid artery chronic occlusion, COPD, right AKA, CAD, HTN, hx. CVA admitted to the ICU s/p right carotid TCAR with Dr. Baker. Patient was found to have restenosis of her right carotid at 70%. At this time she is seated comfortably in bed eating dinner. She has some hesitance in answering questions at first. Upon further questioning she denies any headache, dizziness, vision changes, nausea, vomiting, chest pain, abd pain, SOB, weakness. Patient does not have further questions at this time. Allergies Allergy/AdvReac Type Severity Reaction Status Date / Time No Known Allergies Allergy Mild Verified 10/10/22 09:05 Home Medications Medication Instructions Recorded Confirmed Type aspirin 81 mg tablet,delayed 81 mg PO QAM #90 tabs 12/30/21 10/10/22 Rx release clopidogrel 75 mg tablet 75 mg PO QAM #30 tabs 12/30/21 10/10/22 Rx rosuvastatin 20 mg tablet (Crestor) 20 mg PO QAM #30 tabs 04/24/22 10/10/22 Rx umeclidinium 62.5 mcg-vilanterol 1 inh inhalation DAILY Shortness 07/06/22 09/28/22 Rx 25 mcg/actuation powdr for Of Breath Or Wheezing #60 ea inhalation (Anoro Ellipta) tramadol 50 mg tablet 50 mg PO Q6H PRN pain #60 tabs 09/06/22 10/10/22 Rx carvedilol 12.5 mg tablet (Coreg) 3.125 mg PO BIDM 09/28/22 10/10/22 History losartan 25 mg tablet 12.5 mg PO QAM 09/28/22 10/10/22 History Patient History Medical History CAD (coronary artery disease) Remote LAD stent, repeat cath 2004 with 20% in stent restenosis Carotid artery disease Neck CTA 07/10/22- Status post right carotid endarterectomy. Luminal irregularity and narrowing of the proximal to mid cervical right internal carotid artery with approximate 70% stenosis which has progressed since prior CTA. 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 Occlusion with distal reconstitution versus severe stenosis of the right external carotid artery. Chronic anemia COPD (chronic obstructive pulmonary disease) Per records, pt denies CVA (cerebral vascular accident) 04/2021, residual memory issues + right hand weakness, no neurologist GERD (gastroesophageal reflux disease) Controlled History of GI bleed Hypertension Ischemic ulcer of right foot Follows with [facility] Left renal mass Left side, concern for RCC Pt unaware PAD (peripheral artery disease) S/p stent to right LE (February 2021) Bilateral iliac artery stenosis Poor historian S/P CVA Rectal mass Per records, pt unaware Vasculopathy Ventricular asystolia 2020, follows with [facility] cardio Surgical History 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) Right AKA (11/16/21): LMA#3 + PNB at [facility]. No issues noted per post-op anes thesia progress note. H/O exploratory laparotomy (01/22/21) Exploratory laparotomy, oversew perforated duodenal ulcer, abdominal washout. Dr. Craig 01/22/2021 H/O tubal ligation H/O vascular surgery 2 stents to right leg [facility] February 2021 History of colonoscopy History of esophagogastroduodenoscopy (EGD) (08/2021) gastritis w/ hemorrhage History of right-sided carotid endarterectomy (05/04/21) 30-40 sec chest compressions required during surgery for asystole - possible prior much shorter vagal episode in past as well S/P angioplasty (02/2021) distal SFA and [employer], RLE S/P peripheral artery angioplasty with stent placement (01/2021) RLE, iliac stent / SFA angioplasty S/P peripheral artery angioplasty with stent placement (11/2021) [employer]ATOR/Stent L SFA [place] teeth extracted Family History Mother , age 70 of lung cancer Diabetes Lung cancer Hypertension Father , age 52 of complications of vascular surgery. Lung cancer PAD (peripheral artery disease) Denies family history of Ovarian cancer Prostate cancer Myocardial infarction Breast cancer Colorectal cancer Social History Smoking Status: Current every day smoker Tobacco Type: Cigarettes Age Started Using Tobacco: 27; packs per day: 1; Cigarettes Per Day: 1 PPD x 30 years; Second Hand Exposure: No; Do You Dip or Chew Tobacco: No; Tobacco Cessation Education Requested by Patient: No Hx Alcohol Use: No (Previous heavy ETOH use- now occasional use) Hx Substance Use: No Preferred Language: Faroese Communication Ability: Effective Visual Impairment: Limited Hearing Ability: Normal Human Resources Partner Required: No Beliefs That Will Affect Care: None marital status: Current Living Situation: Spouse current occupational status: employed current occupation: [employer] How many Children do You have: 2 Other Information That Helps Us Care for You: No Feels Safe at Home: Yes Safety Concerns: Feels Safe At This Time Childhood Exposure to Second-Hand Smoke: Yes caffeine: Yes during the past year weight has: remained stable Dental Care, Regularly: No Physical Activity Frequency: Does not Exercise Physical Activity Frequency Comment: on feet at work all day Seatbelt Use: always Sunscreen Use: No Assistive Devices: Glasses Review of Systems Review of Systems: All systems reviewed & are unremarkable except as noted in HPI & below Physical Exam Constitutional: well developed, well nourished, cooperative and comfortable Eyes: PERRL, conjunctivae normal, anicteric sclerae ENMT: external ear and nose normal, oropharynx normal Neck: healing incision noted on right clavicle, wound clean dry intact, no bleeding or discharge noted Respiratory: normal respiratory effort, lungs clear to auscultation Cardiovascular: Rate/Rhythm: regular rate and regular rhythm Extremities: no edema Gastrointestinal (Abdomen): Inspection/Auscultation: abdomen normal to inspection Percussion/Palpation: abdomen soft; abdomen nontender Musculoskeletal: right AKA Skin: no rashes, warm and dry Neurologic: PERRL, EOMI, accommodation nl, no face palsy, no dysarthria moves all extremities Psychiatric: A+Ox3, euthymic affect Results & Data Results & Data ([facility]) Vital Signs (Past 12 Hours) Vital Signs Temp Pulse Pulse Resp BP BP BP 10/10/22 15:34 36.6 C 10/10/22 15:00 36.4 C L 10/10/22 14:34 36.8 C 10/10/22 15:30 98 H 16 10/10/22 15:30 146/92 H 10/10/22 15:15 92 H 14 10/10/22 15:15 173/92 H 10/10/22 15:00 93 H 18 10/10/22 15:00 201/127 H 10/10/22 14:45 89 18 10/10/22 14:45 195/93 H 10/10/22 14:30 88 12 10/10/22 14:30 194/88 H 10/10/22 13:56 36.5 C 86 15 155/82 H 10/10/22 13:30 89 14 155/82 H 10/10/22 13:50 36.5 C 86 15 155/82 H 10/10/22 13:20 95 H 15 172/91 H 10/10/22 13:14 36.3 C L 97 H 15 183/92 H 10/10/22 09:50 88 18 10/10/22 09:17 10/10/22 09:08 36.7 C 20 140/65 158/78 H Pulse Ox O2 Del Method O2 Flow Rate 10/10/22 15:34 10/10/22 15:00 10/10/22 14:34 10/10/22 15:30 96 10/10/22 15:30 10/10/22 15:15 97 10/10/22 15:15 10/10/22 15:00 96 10/10/22 15:00 10/10/22 14:45 96 10/10/22 14:45 10/10/22 14:30 95 10/10/22 14:30 10/10/22 13:56 100 Nasal Cannula 3 10/10/22 13:30 100 Oxymask 5 10/10/22 13:50 100 Nasal Cannula 3 10/10/22 13:20 100 Oxymask 5 10/10/22 13:14 100 Oxymask 7 10/10/22 09:50 92 Room Air 10/10/22 09:17 Room Air 10/10/22 09:08 95 Room Air Resident Activity Tracking Resident Involvement: Resident Care Provided Care Provided: Adult Hospital Medicine (1) Carotid artery disease Carotid artery disease type: stenosis Laterality: bilateral Qualified Code(s): I65.23 - Occlusion and stenosis of bilateral carotid arteries
[2022-10-10] MEDS: oxyCODONE/ACETAMINOPHEN 5mg/325mg TAB PO PRN ×2 (16:37→23:41)
[2022-10-10] MEDS: NICOTINE 21 MG/24 HR TDSY TD SCH (20:00)
[2022-10-10] MEDS: ceFAZolin 2000MG 2,000 MG/15 ML SYR IV SCH (20:00)
[2022-10-11] MEDS: oxyCODONE/ACETAMINOPHEN 5mg/325mg TAB PO PRN ×3 (00:47→20:09)
[2022-10-11] MEDS: ceFAZolin 2000MG 2,000 MG/15 ML SYR IV SCH (03:48)
[2022-10-11] MEDS: LACTATED RINGER'S 1,000 ML IV SCH ×2 (04:30→14:09)
--- NOTE | 2022-10-11 07:57 | Critical Care Progress Note ---
Date of Service October 11, 2022 Assessment & Plan (1) Recurrent stenosis of right carotid artery: Plan: ICU Assessment and Plans Reason Critically Ill: 67yo Female with PMH significant for right carotid artery stenosis s/p prior endarterectomy, left carotid artery chronic occlusion, COPD, right AKA, CAD, HTN, hx. CVA admitted to the ICU s/p right carotid TCAR with Dr. Baker. Neuro - [facility] ICU: NEGATIVE Sedation: none Analgesia: Percocet Hx CVA -continue aspirin 81mg, plavix -continue rosuvastatin Cardiac - HTN -continue carvidilol -continue losartan -hold for BP systolic<100 s/p right carotid TCAR -vascular surgery following -continue ASA, plavix, carvedilol, losartan -continue cefazolin -continue LR 125ml/h Respiratory - COPD -continue anoro ellipta -on 4L O2, wean as tolerated GI - heart healthy diet RENAL/LYTES - Replace lytes as needed. - No concerns at this time. ENDO - No concerns at this time HEME - -monitor vitals, H&H as needed ID - -continue cefazolin INTEGUMENTARY - -incision site clean dry intact LINES/IV ACCESS - PIVs intact. DVT PROPHYLAXIS - -given recent vascular surgery, chemoprophylaxis of DVT contraindicated at this time. Ordered SCDs Thank you for allowing us to be part of this patient's care. Please refer to Dr. Robles's documentation for any further recommendations. Patient stable for downgrade from ICU at this time. (2) Status post bilateral carotid endarterectomy: (3) COPD (chronic obstructive pulmonary disease): (4) Above knee amputation of right lower extremity: (5) Tobacco abuse: (6) Carotid artery disease: (7) Hypertension: (8) History of CVA (cerebrovascular accident): Admission and Anticipated Discharge Date Admission Date: October 10, 2022 Subjective Patient seen at bedside calm comfortable cooperative eating breakfast, states she feels weakness and tingling in her arms. She denies any nausea vomitting headache changes in vision SOB. Patient understands she is being followed by vascular surgery. Review of Systems Review of Systems: All systems reviewed & are unremarkable except as noted in HPI & below Physical Exam Constitutional: well developed, well nourished, cooperative and comfortable Eyes: PERRL, conjunctivae normal, anicteric sclerae ENMT: external ear and nose normal, oropharynx normal Neck: healing incision noted on right clavicle, wound clean dry intact, no bleeding or discharge noted Respiratory: normal respiratory effort, lungs clear to auscultation Cardiovascular: Rate/Rhythm: regular rate and regular rhythm Extremities: no edema Gastrointestinal (Abdomen): Inspection/Auscultation: abdomen normal to inspection Percussion/Palpation: abdomen soft; abdomen nontender Musculoskeletal: right AKA Skin: no rashes, warm and dry Neurologic: PERRL, EOMI, accommodation nl, no face palsy, no dysarthria moves all extremities Psychiatric: A+Ox3, euthymic affect Results & Data Results & Data ([facility]) Vital Signs (Past 12 Hours) Vital Signs Temp Pulse Resp BP Pulse Ox O2 Del Method O2 Flow Rate 10/11/22 06:37 73 16 89 L 10/11/22 06:37 91/42 L 10/11/22 06:35 77/40 L 10/11/22 06:35 75 17 89 L 10/11/22 06:33 71 13 88 L 10/11/22 06:33 90/42 L 10/11/22 06:00 72 14 97 10/11/22 06:00 141/52 H 10/11/22 05:28 83 22 10/11/22 05:28 134/69 10/11/22 05:01 196/125 H 10/11/22 05:01 95 H 15 95 10/11/22 05:00 99 H 20 79 L 10/11/22 04:00 86 18 97 10/11/22 03:00 93 H 31 H 93 10/11/22 03:00 143/86 H 10/11/22 02:00 82 13 97 10/11/22 02:00 159/74 H 10/11/22 01:00 88 16 97 10/11/22 01:00 159/72 H 10/11/22 04:00 77 172/69 H 10/11/22 03:00 36.9 C 10/11/22 00:12 98 H 19 93 10/11/22 00:12 183/85 H 10/11/22 00:01 93 H 24 96 10/11/22 00:00 95 H 22 97 10/10/22 23:00 89 19 95 10/10/22 22:00 86 19 95 10/10/22 22:00 156/77 H 10/11/22 00:00 89 183/78 H 10/11/22 00:00 100 H 10/10/22 23:00 36.8 C 10/10/22 21:00 82 15 98 10/10/22 21:00 121/63 10/10/22 20:00 81 13 100 10/10/22 20:00 82 121/63 10/10/22 20:00 Nasal Cannula 2 Resident Activity Tracking Resident Involvement: Resident Care Provided Care Provided: Adult [facility] Medicine (1) Carotid artery disease Carotid artery disease type: stenosis Laterality: bilateral Qualified Code(s): I65.23 - Occlusion and stenosis of bilateral carotid arteries
--- NOTE | 2022-10-11 09:12 | Ultrasound Report ---
RIGHT UPPER EXTREMITY VENOUS DOPPLER ULTRASOUND CLINICAL HISTORY: firm evaluate for thrombus COMPARISON STUDY: No previous studies for comparison. TECHNIQUE: Sonography of the deep venous system of the right upper extremity was performed. FINDINGS: The right internal jugular, subclavian, axillary, brachial, radial, ulnar, cephalic and bas ilic veins were patent. No venous thrombus was identified within the right upper extremity. IMPRESSION: No deep venous thrombus within the right upper extremity. ACT 112: Negative or not required by law. Electronically signed by: Km Carey M.D. 10/11/2022 9:11 AM
[2022-10-11] MEDS: ROSUVASTATIN CALCIUM 20 MG TAB PO SCH (09:33)
[2022-10-11] MEDS: ASPIRIN 81 MG ECTAB PO SCH (09:33)
[2022-10-11] MEDS: CLOPIDOGREL BISULFATE 75 MG TAB PO SCH (09:33)
[2022-10-11] MEDS: UMECLIDINIUM/VILANTEROL 62.5/25MCG 7 PUFFS/INHALER INH SCH (09:34)
--- NOTE | 2022-10-11 09:34 | Ultrasound Report ---
ULTRASOUND RIGHT UPPER EXTREMITY ARTERIAL CLINICAL HISTORY: Right arm pain and firmness. COMPARISON STUDY: No priors. TECHNIQUE: Real-time grayscale and color Doppler sonography of the arteries of the right upper extrem ity is performed. FINDINGS: The right common carotid artery is patent with normal arterial waveforms and velocities kinga suring up to 95 cm/s. The right vertebral artery is patent with antegrade flow. There are normal Dopp ler arterial waveforms throughout the right subclavian artery with velocities measuring up to 142 cm/ s. Normal Doppler waveforms are seen throughout the axillary and brachial arteries. Velocities in the axillary artery measure up to 134 cm/s, and velocities in the brachial artery measure up to 120 cm/s . The radial and ulnar arteries are patent with velocities measuring up to 54 cm/s. IMPRESSION: Normal Doppler examination of the right upper extremity arteries. Dictated: 10/11/2022 9:10 AM Transcribed: 10/11/2022 9:19 AM Yari [id number] [email or web address]_Britton Electronically signed by: Dae Quintero M.D. 10/11/2022 9:33 AM
[2022-10-11] MEDS: carvediloL 3.125 MG TAB PO SCH ×2 (10:34→16:30)
[2022-10-11] MEDS: LOSARTAN POTASSIUM 25 MG TAB PO SCH (10:34)
--- NOTE | 2022-10-11 13:24 | Surgery Progress Note ---
Date of Service October 11, 2022 Assessment & Plan (1) Recurrent stenosis of right carotid artery: Plan: Pt overall doing well postop, but is having oxygen desat in the 80%'s on room air. Per Olivia, will keep pt another night to monitor. Will transfer to med/surg tele. Admission and Anticipated Discharge Date Admission Date: October 10, 2022 Subjective 67 yo f POD #1 after R TCAR d/t recurrent R ICA stenosis, seen in f/u today. Pt states mild pain in R neck incision. Denies any other complaints. Review of Systems Review of Systems: All systems reviewed & are unremarkable except as noted in HPI & below Physical Exam Constitutional: WD/WN, vitals as above Neck: R supraclavicular incision C/D/I, mild local edema/tenderness Respiratory: normal respiratory effort Auscultation: + diminished lung sounds and + wheezes Cardiovascular: Rate/Rhythm: regular rate and regular rhythm Vessels: radial pulses present; + abnormal peripheral pulses Gastrointestinal (Abdomen): Inspection/Auscultation: abdomen normal to inspection and normal bowel sounds Percussion/Palpation: abdomen soft; abdomen nontender Musculoskeletal: no cyanosis or clubbing, extremities motor strength 5/5 (R AKA noted) Skin: no rashes, warm and dry Neurologic: moves all extremities and awake; no focal motor deficits and not confused Psychiatric: A+Ox3, euthymic affect Results & Data ([facility]) Vital Signs (Past 12 Hours) Vital Signs Temp Pulse Resp BP Pulse Ox O2 Del Method 10/11/22 10:05 89 10/11/22 12:00 82 17 94 10/11/22 12:00 124/94 10/11/22 11:00 73 15 96 10/11/22 11:00 114/55 L 10/11/22 10:00 87 15 93 10/11/22 09:00 79 15 96 10/11/22 09:00 150/74 H 10/11/22 08:00 127/58 L 10/11/22 12:00 36.7 C 10/11/22 12:00 76 154/74 H 10/11/22 08:00 Room Air 10/11/22 08:00 36.9 C 10/11/22 08:00 82 20 88 L Room Air 10/11/22 07:30 83 19 86 L 10/11/22 07:00 69 18 87 L Room Air 10/11/22 07:00 95/45 L 10/11/22 08:00 75 130/60 10/11/22 06:37 73 16 89 L 10/11/22 06:37 91/42 L 10/11/22 06:35 77/40 L 10/11/22 06:35 75 17 89 L 10/11/22 06:33 71 13 88 L 10/11/22 06:33 90/42 L 10/11/22 06:00 72 14 97 10/11/22 06:00 141/52 H 10/11/22 05:28 83 22 10/11/22 05:28 134/69 10/11/22 05:01 196/125 H 10/11/22 05:01 95 H 15 95 10/11/22 05:00 99 H 20 79 L 10/11/22 04:00 86 18 97 10/11/22 03:00 93 H 31 H 93 10/11/22 03:00 143/86 H 10/11/22 02:00 82 13 97 10/11/22 02:00 159/74 H 10/11/22 04:00 77 172/69 H 10/11/22 03:00 36.9 C
[2022-10-11] MEDS: NICOTINE 21 MG/24 HR TDSY TD SCH (20:04)
[2022-10-12] MEDS: oxyCODONE/ACETAMINOPHEN 5mg/325mg TAB PO PRN ×2 (00:07→09:30)
[2022-10-12] MEDS: ASPIRIN 81 MG ECTAB PO SCH (08:56)
[2022-10-12] MEDS: carvediloL 3.125 MG TAB PO SCH ×2 (08:56→18:04)
[2022-10-12] MEDS: LOSARTAN POTASSIUM 25 MG TAB PO SCH (08:56)
[2022-10-12] MEDS: CLOPIDOGREL BISULFATE 75 MG TAB PO SCH (08:56)
[2022-10-12] MEDS: UMECLIDINIUM/VILANTEROL 62.5/25MCG 7 PUFFS/INHALER INH SCH (08:57)
[2022-10-12] MEDS: ROSUVASTATIN CALCIUM 20 MG TAB PO SCH (08:57)
--- NOTE | 2022-10-12 12:10 | Surgery Progress Note ---
Date of Service October 12, 2022 Assessment & Plan (1) Recurrent stenosis of right carotid artery: Plan: Patient is doing well from a carotid TCAR standpoint. She is neurologically intact. (2) COPD (chronic obstructive pulmonary disease): Plan: She was maintained on 2 L nasal cannula. On room air she did desaturate to the low 80s. She was placed back on 2 L and we will consult pulmonary. Admission and Anticipated Discharge Date Admission Date: October 10, 2022 Subjective 67 yo f POD #2 after R TCAR d/t recurrent R ICA stenosis, seen in f/u today. She denies any neck pain today. She denies any shortness of breath. She is on nasal cannula at this point. Physical Exam Physical Exam: On exam patient is awake alert and oriented x3. She is in no apparent distress. She is neurologically intact. Her lungs are clear heart had a regular rate and rhythm abdominal exam is benign she has good femoral pulse on the left lower extremity. Ultrasound showed the 80 to 99% narrowing of the right internal carotid artery beyond the endarterectomy site. The left internal artery is chronically occluded. Constitutional: well developed and well nourished Respiratory: normal respiratory effort; no respiratory distress Auscultation: lungs clear to auscultation bilaterally Cardiovascular: Rate/Rhythm: regular rate and regular rhythm Skin: + incision (Dry and clean) Neurologic: CN's II-XI intact bilaterally and moves all extremities Psychiatric: Orientation: alert and oriented x 3 Results & Data ([facility]) Vital Signs (Past 12 Hours) Vital Signs Temp Pulse Pulse Resp BP Pulse Ox O2 Del Method 10/12/22 11:52 90 Nasal Cannula 10/12/22 11:51 84 L Room Air 10/12/22 11:18 36.6 C 89 19 150/73 H 93 Room Air 10/12/22 08:00 82 10/12/22 07:35 36.7 C 83 19 177/70 H 92 Nasal Cannula 10/12/22 03:00 36.8 C 89 20 168/67 H 92 Nasal Cannula 10/12/22 00:16 98 H O2 Flow Rate 10/12/22 11:52 2.5 10/12/22 11:51 10/12/22 11:18 10/12/22 08:00 10/12/22 07:35 2.5 10/12/22 03:00 2 10/12/22 00:16
--- NOTE | 2022-10-12 13:30 | XRay Report ---
SINGLE VIEW CHEST CLINICAL HISTORY: Hypoxia FINDINGS: An AP, portable, upright chest radiograph is compared to study dated 10/02/2022 and correlat ed with chest CT dated 11/09/2021. The cardiomediastinal silhouette is unremarkable. Emphysema and chr onic interstitial thickening is similar to previous. There is a small left pleural effusion with left basilar consolidation. No pneumothorax is seen. The skeletal structures are osteopenic. The bony tho rax is grossly intact. IMPRESSION: 1. Small left pleural effusion with left basilar consolidation. This is new from 10/02/2022. Correlate clinically for evidence of pneumonia/aspiration pneumonitis. Radiographic follow-up to resolution is recommended. 2. Emphysema. ACT 112: Negative or not required by law. Electronically signed by: Dae Quintero M.D. 10/12/2022 1:28 PM
--- NOTE | 2022-10-12 13:50 | Pulmonary Consultation ---
Date of Consultation October 12, 2022 Assessment & Plan (1) Hypoxia: 67-year-old female with multiple comorbidities including peripheral vascular disease, hypertension, prior CVA, and COPD who has been persistently hypoxic status post RIGHT carotid TCAR procedure. 1. Hypoxemia: Patient is a vasculopath and with poor peripheral perfusion. There was difficulty with the bedside pulse oximeter which was changed out. We did utilize a forehead probe and the patient was saturating well into the high 90s on room air. I suspect that her peripheral arterial disease is likely making pulse oximetry detection difficult and the patient confirms that this has been an issue in the past. Her chest film today demonstrates no significant findings that would suggest reason for worsening hypoxemia. Respiratory therapy was made aware and they will continue to monitor her oxygen saturations at this point. Her exam is relatively normal despite her CT findings concerning with multiple emphysematous lesions of the lung. She appears in no distress and looks well overall. We will encourage her to continue to use her Anoro Ellipta. She was encouraged to continue using her incentive spirometer as well. She is welcome to follow-up with pulmonary medicine in the outpatient setting. I did discuss smoking cessation with the patient, however she receives extremely reluctant. 2. Dizziness: Patient complains of dizziness and points to the top of her head. Bedside neuro exam demonstrates no significant findings. After further conversation, she reports that this has been a recurrent dizziness over the past at least 6 months. I did reach out to her surgeon to provide update. Otherwise, defer to primary service. Thank you for allowing us to participate in the care of this patient. (2) COPD (chronic obstructive pulmonary disease): (3) Status post bilateral carotid endarterectomy: Supervising Physician Co-Signing Physician Notes Patient seen and examined. EMR reviewed. Images were independently reviewed. Discussed with CAITLIN and agree with assessment plan as noted. Consulted for obstructive lung disease with hypoxemia. The hypoxemia appears to be artifactual as her pulse oximeter was not reading correctly. When we got an appropriate pulse oximeter with an appropriate waveform, she was 94 to 96% on room air. Patient does have known obstructive lung disease. Would recommend continuing Anoro, incentive spirometry, and out of bed to chair as tolerated. She can continue her rehab. Could consider outpatient formal pulmonary function testing depending on clinical course. Will defer additional evaluation of her dizziness has been going on for over 6 months to her primary service and vascular surgeons. Pulmonary will sign off at this point time. Feel free to contact us with questions or concerns History of Present Illness Reason for Consultation: Hypoxia, COPD Requesting Physician: Dr. Olivia MD Attending Physician: Cash Baker MD History of Present Illness Patient is a 67-year-old female with a significant past medical history of prior CVA, hypertension, peripheral tear disease, carotid artery disease, significant history of tobacco abuse, AKA of the RIGHT lower extremity, COPD, and anxiety. She was admitted to this institution on 10/10 to undergo RIGHT-sided TCAR procedure. The patient did well postoperatively, however, they have been having issues with her oxygen saturations. She does not wear oxygen at home. The patient has never seen a property analyst. She was recently diagnosed with COPD based on imaging studies from what I can gather. She was placed on Anoro Ellipta recently, however she admits that she hadn't used it. She denies any complaints of shortness of breath. She reports no wheezing. She states that she occasionally coughs, but reports no worse recently than her baseline. She denies any fevers or chills. No hemoptysis. Currently, the patient complains of dizziness. She reports that this is happened since she moved to the bedside chair. She states that this happens intermittently and has been doing so over the last 6 months. She denies any blurry double vision. No slurred speech or facial droop, no unilateral weakness or numbness. Allergies Allergy/AdvReac Type Severity Reaction Status Date / Time No Known Allergies Allergy Mild Verified 10/10/22 09:05 Home Medications Medication Instructions Recorded Confirmed Type aspirin 81 mg tablet,delayed 81 mg PO QAM #90 tabs 12/30/21 10/10/22 Rx release clopidogrel 75 mg tablet 75 mg PO QAM #30 tabs 12/30/21 10/10/22 Rx rosuvastatin 20 mg tablet (Crestor) 20 mg PO QAM #30 tabs 04/24/22 10/10/22 Rx umeclidinium 62.5 mcg-vilanterol 1 inh inhalation DAILY Shortness 07/06/22 09/28/22 Rx 25 mcg/actuation powdr for Of Breath Or Wheezing #60 ea inhalation (Anoro Ellipta) tramadol 50 mg tablet 50 mg PO Q6H PRN pain #60 tabs 09/06/22 10/10/22 Rx carvedilol 12.5 mg tablet (Coreg) 3.125 mg PO BIDM 09/28/22 10/10/22 History losartan 25 mg tablet 12.5 mg PO QAM 09/28/22 10/10/22 History Patient History Medical History CAD (coronary artery disease) Remote LAD stent, repeat cath 2004 with 20% in stent restenosis Carotid artery disease Neck CTA 07/10/22- Status post right carotid endarterectomy. Luminal irregularity and narrowing of the proximal to mid cervical right internal carotid artery with approximate 70% stenosis which has progressed since prior CTA. 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 Occlusion with distal reconstitution versus severe stenosis of the right external carotid artery. Chronic anemia COPD (chronic obstructive pulmonary disease) Per records, pt denies CVA (cerebral vascular accident) 04/2021, residual memory issues + right hand weakness, no neurologist GERD (gastroesophageal reflux disease) Controlled History of GI bleed Hypertension Ischemic ulcer of right foot Follows with [facility] Left renal mass Left side, concern for RCC Pt unaware PAD (peripheral artery disease) S/p stent to right LE (February 2021) Bilateral iliac artery stenosis Poor historian S/P CVA Rectal mass Per records, pt unaware Vasculopathy Ventricular asystolia 2020, follows with [facility] cardio Surgical History 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 No issues noted per post-op anesthesia progress note. H/O exploratory laparotomy (01/22/21) Exploratory laparotomy, oversew perforated duodenal ulcer, abdominal washout. Dr. Craig 01/22/2021 H/O tubal ligation H/O vascular surgery 2 stents to right leg [facility] February 2021 History of colonoscopy History of esophagogastroduodenoscopy (EGD) (08/2021) gastritis w/ hemorrhage History of right-sided carotid endarterectomy (05/04/21) 30-40 sec chest compressions required during surgery for asystole - possible prior much shorter vagal episode in past as well S/P angioplasty (02/2021) distal SFA and FACULTY MEMBER, RLE S/P peripheral artery angioplasty with stent placement (01/2021) RLE, iliac stent / SFA angioplasty S/P peripheral artery angioplasty with stent placement (11/2021) FACULTY MEMBER/Stent L SFA [place] teeth extracted Family History Mother , age 70 of lung cancer Diabetes Lung cancer Hypertension Father , age 52 of complications of vascular surgery. Lung cancer PAD (peripheral artery disease) Denies family history of Ovarian cancer Prostate cancer Myocardial infarction Breast cancer Colorectal cancer Social History Smoking Status: Current every day smoker Tobacco Type: Cigarettes Age Started Using Tobacco: 27; packs per day: 1; Cigarettes Per Day: 1 PPD x 30 years; Second Hand Exposure: No; Do You Dip or Chew Tobacco: No; Tobacco Cessation Education Requested by Patient: No Hx Alcohol Use: No (Previous heavy ETOH use- now occasional use) Hx Substance Use: No Preferred Language: Stateless Communication Ability: Effective Visual Impairment: Limited Hearing Ability: Normal Depot Manager Required: No Beliefs That Will Affect Care: None marital status: Current Living Situation: Spouse current occupational status: employed current occupation: [employer] How many Children do You have: 2 Other Information That Helps Us Care for You: No Feels Safe at Home: Yes Safety Concerns: Feels Safe At This Time Childhood Exposure to Second-Hand Smoke: Yes caffeine: Yes during the past year weight has: remained stable Dental Care, Regularly: No Physical Activity Frequency: Does not Exercise Physical Activity Frequency Comment: on feet at work all day Seatbelt Use: always Sunscreen Use: No Assistive Devices: Wheelchair Review of Systems Review of Systems: A complete 10 point review of systems was reviewed with the patient with pertinent positives and negatives as per history of present illness. All else were negative. Physical Exam Physical Exam: VITAL SIGNS - Vital signs and nursing notes were reviewed. GENERAL - 67-year-old female appearing her stated age who is in no acute distres s. Communicates well with provider and answers questions appropriately. HEAD - NC/AT. EYES - PERRL with EOMI bilaterally. Sclera anicteric. EARS - No deformities of external structures noted on gross examination bilaterally. NOSE - Midline and without cyanosis. No epistaxis or purulent drainage noted. MOUTH/OROPHARYNX - Without perioral cyanosis. Buccal mucosa pink and moist. NECK - Neck with FROM. Surgical incision site to the RIGHT sided base of the neck clean, dry, and intact. LUNGS - Chest wall symmetric without accessory muscle use, intercostals retractions, or central cyanosis. Normal vesicular breath sounds CTA B/L. No wheezes, rales, or rhonchi appreciated. CARDIAC - RRR with S1/S2. No murmur, rubs, or gallops appreciated. No reproducible tenderness to palpation appreciated over the anterior chest wall. ABDOMEN - Abdominal contour flat without pulsations or visible masses. BS normoactive all four quadrants. No tenderness, palpable masses, hepatosplenomegaly, or ascites noted. EXTREMITIES - No clubbing or peripheral cyanosis. RLE AKA. No pretibial edema present. +3/5 radial pulses palpated throughout. +5/5 strength noted in UE/LE bilaterally. NEUROLOGIC - Cranial nerves II through XII grossly intact. Sensory intact to light touch throughout. PSYCH - A&Ox3 and cooperates fully with examiner. Pt is very pleasant and interacts well with examiner. Results & Data Results & Data ([facility]) Vital Signs (Past 12 Hours) Vital Signs Temp Pulse Pulse Resp BP Pulse Ox O2 Del Method 10/12/22 11:52 90 Nasal Cannula 10/12/22 11:51 84 L Room Air 10/12/22 11:18 36.6 C 89 19 150/73 H 93 Room Air 10/12/22 08:00 82 10/12/22 07:35 36.7 C 83 19 177/70 H 92 Nasal Cannula 10/12/22 03:00 36.8 C 89 20 168/67 H 92 Nasal Cannula O2 Flow Rate 10/12/22 11:52 2.5 10/12/22 11:51 10/12/22 11:18 10/12/22 08:00 10/12/22 07:35 2.5 10/12/22 03:00 2 PG Care Time/CCT Total # of Minutes Spent Total Time Spent with Patient: Total time spent is greater than 50% in coordination of care (as documented) at patient's floor/unit and/or counseling patient: Coding Level of Care Code 50921 Initial Inpt Care Lvl 2 Diagnoses Hypoxia R09.02 COPD (chronic obstructive pulmonary disease) J44.9 Status post bilateral carotid endarterectomy Z98.890
[2022-10-12] MEDS: NICOTINE 21 MG/24 HR TDSY TD SCH (20:31)
[2022-10-12] MEDS: traMADol HCL 50 MG TABLET PO PRN (21:28)
[2022-10-13] MEDS: traMADol HCL 50 MG TABLET PO PRN (02:30)
[2022-10-13] MEDS: ASPIRIN 81 MG ECTAB PO SCH (09:19)
[2022-10-13] MEDS: carvediloL 3.125 MG TAB PO SCH (09:19)
[2022-10-13] MEDS: CLOPIDOGREL BISULFATE 75 MG TAB PO SCH (09:19)
[2022-10-13] MEDS: LOSARTAN POTASSIUM 25 MG TAB PO SCH (09:20)
[2022-10-13] MEDS: ROSUVASTATIN CALCIUM 20 MG TAB PO SCH (09:20)
[2022-10-13] MEDS: UMECLIDINIUM/VILANTEROL 62.5/25MCG 7 PUFFS/INHALER INH SCH (09:20)
--- NOTE | 2022-10-13 09:26 | Surgery Progress Note ---
Date of Service October 13, 2022 Assessment & Plan (1) Recurrent stenosis of right carotid artery: Plan: Patient is doing well from a carotid TCAR standpoint. She is neurologically intact. Discussed with gerda Soot for d/c home today. (2) COPD (chronic obstructive pulmonary disease): Plan: She is now on room air and doing well. No increased work of breathing or c/o SOB. Pulmonary saw pt yesterday, replaced sat monitor for more accurate read, oxygen sat improved. Admission and Anticipated Discharge Date Admission Date: October 10, 2022 Subjective 67 yo f POD #3 after R TCAR d/t recurrent R ICA stenosis, seen in f/u today. She denies any neck pain today. She denies any shortness of breath. She is breathing well on room air. Review of Systems Review of Systems: All systems reviewed & are unremarkable except as noted in HPI & below Physical Exam Constitutional: WD/WN, vitals as above Respiratory: normal respiratory effort Auscultation: + diminished lung sounds and + wheezes Cardiovascular: Rate/Rhythm: regular rate and regular rhythm Vessels: radial pulses present; + abnormal peripheral pulses Gastrointestinal (Abdomen): Inspection/Auscultation: abdomen normal to inspection and normal bowel sounds Percussion/Palpation: abdomen soft; abdomen nontender Musculoskeletal: no cyanosis or clubbing, extremities motor strength 5/5 (R AKA noted) Skin: no rashes, warm and dry Neurologic: moves all extremities and awake; no focal motor deficits and not confused Psychiatric: A+Ox3, euthymic affect Results & Data ([facility]) Vital Signs (Past 12 Hours) Vital Signs Temp Pulse Pulse Resp BP Pulse Ox O2 Del Method 10/13/22 07:54 36.9 C 87 19 134/62 96 Nasal Cannula 10/13/22 07:23 83 10/13/22 06:00 96 Nasal Cannula 10/13/22 02:54 95 Nasal Cannula 10/13/22 02:42 36.5 C 80 18 166/79 H 90 Room Air 10/13/22 02:01 Room Air, Nasal Cannula 10/13/22 01:00 93 Room Air 10/12/22 23:51 92 H 10/12/22 21:57 37 C 92 H 18 138/75 90 Room Air O2 Flow Rate 10/13/22 07:54 2 10/13/22 07:23 10/13/22 06:00 2 10/13/22 02:54 2 10/13/22 02:42 10/13/22 02:01 2 10/13/22 01:00 10/12/22 23:51 10/12/22 21:57
--- NOTE | 2022-10-13 10:17 | Discharge Summary ---
Date of Service October 13, 2022 Admission HPI Per Admitting Provider Ms Bellamy is a 67-year-old female who underwent a right carotid endarterectomy in the past. She also has a known left internal carotid artery occlusion. Her ultrasound and CT angiogram confirmed a restenosis of her right internal carotid artery just beyond its origin. She is admitted today for a TCAR of her right carotid artery Admission Exam Per Admitting Provider On exam patient is awake alert and oriented x3. She is in no apparent distress. She is neurologically intact. Her lungs are clear heart had a regular rate and rhythm abdominal exam is benign she has good femoral pulse on the left lower extremity. Ultrasound showed the 80 to 99% narrowing of the right internal carotid artery beyond the endarterectomy site. The left internal artery is chronically occluded. Principal Diagnosis 1. s/p R TCAR 2. Hypoxia 3. Recurrent R ICA stenosis Discharge Exam Constitutional WD/WN, vitals as above Respiratory normal respiratory effort Auscultation: + diminished lung sounds and + wheezes Cardiovascular Rate/Rhythm: regular rate and regular rhythm Vessels: radial pulses present; + abnormal peripheral pulses Gastrointestinal (Abdomen) Inspection/Auscultation: abdomen normal to inspection and normal bowel sounds Percussion/Palpation: abdomen soft; abdomen nontender Musculoskeletal no cyanosis or clubbing, extremities motor strength 5/5 (R AKA noted) Skin no rashes, warm and dry Neurologic moves all extremities and awake; no focal motor deficits and not confused Psychiatric A+Ox3, euthymic affect Discharge Data Allergies Allergy/AdvReac Type Severity Reaction Status Date / Time No Known Allergies Allergy Mild Verified 10/10/22 09:05 Consultations 10/10/22 14:34 Consult Industrial Real Estate Agent Routine 10/12/22 12:11 Consult Pulmonology Routine Procedures Performed Operation Date: 10/10/22 10:30 Actual Procedures p Right Trans Carotid Artery Revascularization, ultrasound localization of left femoral artery and femoral vein, insertion of arterial line(Right)(Right) - Cash Baker MD Ordered Studies 10/10/22 07:36 EV angio carotid external RT Routine 10/11/22 05:51 US arterial duplex UE RT Stat US venous duplex arm [US venous doppler UE RT] Stat Hospital Course (1) Recurrent stenosis of right carotid artery: Patient is doing well from a carotid TCAR standpoint. She is neurologically intact. Discussed with Dr Simoni, ok for d/c home today. (2) COPD (chronic obstructive pulmonary disease): She is now on room air and doing well. No increased work of breathing or c/o SOB. Pulmonary saw pt yesterday, replaced sat monitor for more accurate read, oxygen sat improved. Total Time Total Time Spent Total Time Spent (In Minutes): 0 Discharge Plan Discharge Items Patient Disposition: Home - Self-Care Reason For Visit: Right Internal Carotid Artery Stenosis Discharge Diagnosis: 1. s/p Right Transcarotid Artery Revascularization 2. Restenosis R ICA Activity: Per Instructions section Non-emergency contact: Primary Care Provider and Surgeon Call non-emergency contact if: you have any medication questions, your pain is not controlled, your pain is concerning for you, you have a fever, your wound has increased redness and your wound has increased drainage Follow-up/Referrals: Go Landeros CRNP [Primary Care Provider] - 10/31/22 8:20 am () Cash Baker MD [Physician] - (Follow up with Dr Baker or Mony Shahid PA-C in 2 weeks. Their office will call you to make an appointment.) Diet: Heart Healthy Add Attending Provider Instructions: SPECIAL CARE INSTRUCTIONS: Medications: * DO NOT STOP TAKING ASPIRIN, PLAVIX(CLOPIDOGREL), or ROSUVASTATIN. Incision Care: * You may shower, but do not rub incision. You may let the warm soapy water run over it. Be sure to dry the incision well after bathing. * Do not shave directly over the incision until it is healed. * DO NOT IMMERSE THE INCISION IN A TUB/POOL/etc. UNTIL HEALED. Restrictions: * Do not drive for at least one week or if you are still taking any narcotic pain medication. * Do not lift anything heavier than a gallon of milk for one week after going home. Possible Complications: * Numbness - It is normal to have some numbness around the incision. Numbness can extend beyond the incision to areas of the neck, ear and face. The numbn ess is due to bruising of nerves during the surgery and will gradually improve over a period of months. * Hoarseness/Difficulty Speaking and Swallowing - The bruising of nerves in the neck can also cause a hoarse voice, difficulty speaking or swallowing. This may improve over time, HOWEVER, if it continues for more than a few days please contact our office ([phone]). * Excessive Swelling - There will be some swelling immediately after surgery which usually resolves within one week. If you notice that the swelling is getting worse, notify your surgeon ([phone]). * Drainage/Bleeding - If there is any drainage or bleeding, it should be a very small amount (less than a teaspoon per day). If you have excessive bleeding or drainage from the incision, call your surgeon ([phone]) right away. ACTIVATION OF EMERGENCY MEDICAL SYSTEM: Call 911, immediately, if you experience any of the following: Warning Signs and Symptoms of Stroke: * Sudden numbness or weakness of the face, arm or leg, especially on one side of the body * Sudden confusion, trouble speaking or understanding * Sudden trouble seeing in one or both eyes * Sudden trouble walking, dizziness, loss of balance or coordination * Sudden severe headache with no cause Do not delay calling 911 if you experience any warning signs or symptoms of a stroke. Delay in seeking medical attention may affect what treatments can be given to you. Risk Factors for Stroke: You can reduce your chances of stroke by working with your medical provider to adopt a healthy lifestyle. Some specific ways to lower your chance of stroke are: * If you are a smoker, now is the time to stop smoking cigarettes * If you are diabetic, improve the control of your blood sugars * Avoid excessive amounts of alcohol * Control high blood pressure * Lose weight if you are overweight * Be sure to lead an active lifestyle * Eat a healthy diet low in salt, cholesterol and fat You should know about other risk factors for stroke that you are unable to control. These include: * Age 55 years or older * Male gender * Certain racial groups: , or / * Family History of Stroke, Mini stroke or Heart Attack * Sickle Cell Disease You will be receiving a call from the Vascular Surgery Nurse after you are discharged. FOLLOW UP VISIT: It is important for you to keep your follow up appointments with your medical provider. Keep any scheduled doctor appointments. Pending Studies at Discharge: No Stand-Alone Forms: My [facility] [place], Smoking Cessation Medications and DC Order Prescriptions: Continued clopidogrel 75 mg tablet 75 mg PO QAM Qty: 30 5RF aspirin 81 mg tablet,delayed release (DR/EC) 81 mg PO QAM Qty: 90 1RF rosuvastatin [Crestor] 20 mg tablet 20 mg PO QAM Qty: 30 3RF tramadol 50 mg tablet 50 mg PO Q6H PRN (Reason: pain) Qty: 60 0RF Anoro Ellipta 62.5-25 mcg/actuation blister with device 1 inh inhalation DAILY Qty: 60 5RF losartan 25 mg Tablet 12.5 mg PO QAM carvedilol [Coreg] 12.5 mg tablet 3.125 mg PO BIDM Discharge Orders: Discharge Order (Routine); Ordered 10/13/22 Ordered By: Mony Shahid Admission Data Admit Date/Time: 10/10/22 09:40 Attending Provider: Cash Baker Admit Provider: Cash Baker Primary Care Provider: Go Landeros Other Providers: Dae Morrissey ; Quinton Robles ; Yo Delaney ; Demario Guillen ; Alex Louis ; Sunny Davidson ; Eva Inman ; Jacob Telles ; Gaby Rendon
== END 2022-10-13 14:01 | disposition home or self-care (01) | DRG 36 ==
LOC: ASU 08:44 → 1E 09:40 → 2W 10-11 16:14
PROC: EV.TCAR (2022-10-10 10:30)
DX: J44.9 Chronic obstructive pulmonary disease, unspecified; Z83.3 Family history of diabetes mellitus; F17.210 Nicotine dependence, cigarettes, uncomplicated; Z79.02 Long term (current) use of antithrombotics/antiplatelets; I69.398 Other sequelae of cerebral infarction; Z79.82 Long term (current) use of aspirin; I25.10 Atherosclerotic heart disease of native coronary artery without angina pectoris; K21.9 Gastro-esophageal reflux disease without esophagitis; I10 Essential (primary) hypertension; I65.21 Occlusion and stenosis of right carotid artery; Z95.828 Presence of other vascular implants and grafts

== ENCOUNTER 2022-10-31 14:34 | Inpatient (IN) ==
[2022-10-31 15:15] LABS: Basophils # (auto) 0.08 K/uL (0-0.2); Basophils % (auto) 1.5 %; Eosinophils % (auto) 1.9 %; Hematocrit (blood only) 34.9 % (34.1-44.9); Hemoglobin 10.5 g/dl (12.0-16.0); Immature Granulocytes # (auto) 0.01 K/uL (0.00-0.02); Immature Granulocytes % (auto) 0.2 %; Lymphocytes # (auto) 1.13 K/uL (1.2-3.4); Lymphocytes % (auto) 21.9 %; Mean Corpuscular Hemoglobin 23.2 pg (25.0-34.0); Mean Corpuscular Hgb Conc 30.1 g/dL (32.0-36.0); Mean Platelet Volume 8.8 fL (9.4-12.3); Monocytes # (auto) 0.44 K/uL (0.24-0.82); Monocytes % (auto) 8.5 %; Neutrophils # (auto) 3.41 K/uL (1.4-6.5); Platelet Count 324 K/uL (130-400); RDW Coefficient of Variation 20.1 % (11.5-14.5); RDW Standard Deviation 55.8 fL (36.4-46.3); Red Blood Count 4.53 M/uL (3.93-5.22); White Blood Count 5.17 K/ul (4.8-10.8)
[2022-10-31 15:41] LABS: Anisocytosis Present
[2022-10-31 15:44] LABS: Alanine Aminotransferase 7 U/L (7-52); Albumin Globulin Ratio 1.3 (0.9-2); Albumin Level 4.2 gm/dl (3.4-5.0); Alkaline Phosphatase 121 U/L (34-104); Anion Gap 7 (3-11); Aspartate Aminotransferase 13 U/L (13-39); BUN Creatinine Ratio 29.4 (10-20); Bilirubin,Total 0.4 mg/dl (0.2-1.0); Blood Urea Nitrogen 15 mg/dl (6-23); Calcium 9.6 mg/dl (8.5-10.1); Carbon Dioxide 27 mmol/L (21-32); Chloride 105 mmol/L (98-107); Est GFR (Non-African American) 100.9 ml/min; Globulin 3.2 gm/dl (2.5-4.0); Glucose 96 mg/dl (70-99(Fasting)); Potassium 4.1 mmol/L (3.5-5.1); Sodium 139 mmol/L (136-145); Total Protein 7.4 gm/dl (6.0-8.3)
[2022-10-31] MEDS ORDERED: SODIUM CHLORIDE 0.9% 1000ML 500 ML IV ONE (16:27)
[2022-10-31] MEDS ORDERED: OPTIRAY 320 500ml IV ONE (17:48)
--- NOTE | 2022-10-31 18:19 | CT Scan Report ---
CT ANGIOGRAM OF THE BRAIN COMBO; CT ANGIOGRAM OF THE NECK CLINICAL HISTORY: Visual changes status post carotid endarterectomy. COMPARISON STUDY: CT and MRI of the brain dated 12/02/2021. CT radiograph of the brain dated 05/24/[address] angiogram of the neck dated 07/10/2022. TECHNIQUE: Unenhanced axial CT scan of the brain is performed. Subsequently, following the IV adminis tration of 108 of [employer] 320, CT angiogram of the head and neck was performed from the aortic arch t o the vertex. Images are reviewed in the axial, sagittal, and coronal planes. 3-D MIPS images are cre ated and assessed. IV contrast was administered without complication. All measurements were calculate d based on NASCET criteria. A dose lowering technique was utilized adhering to the principles of ALA RA. CT DOSE: 1001.48 mGy.cm FINDINGS: Brain parenchyma: There is age-related involutional change noting mild subcortical and periventricula r microangiopathic disease. Chronic lacunar infarcts in the left caudate head, centrum semiovale, and basal ganglia are similar to previous. There is no hemorrhage, mass effect, or evidence of acute ter ritorial ischemia by CT criteria. There is no evidence of enhancing mass lesion on the angiogram phas e images. The ventricles, sulci, and cisterns are prominent secondary to motion change. Hallman-white ma tter differentiation is preserved. No extra-axial fluid collection is seen. Thoracic aorta: There is atherosclerotic calcification of the thoracic aorta. Visualized portions of the thoracic aorta are normal in caliber. The aortic arch demonstrates standard 3-vessel anatomy. 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 A stent in the internal carotid artery is thrombosed. There is likely reconstitution of flow within branches of the right external carotid artery. The origin is occluded. 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 This is thrombosed in the aortic arch to the sk ll base. There is likely reconstitution of flow within branches of the external carotid artery. Vertebral arteries: There is mild to moderate stenosis at the origin of the left vertebral artery. Th e vertebral arteries are otherwise widely patent bilaterally and codominant. Subclavian arteries: Widely patent bilaterally. Intracranial vasculature: There is atherosclerotic calcification of the cavernous carotid arteries. T here is complete thrombosis of both internal carotid arteries at the skull base. The vessels are occl uded to the [place]. The anterior and middle cerebral arteries are patent bilaterally commen t and are supplied by large bilateral posterior communicating arteries. The vertebrobasilar system an d posterior cerebral arteries are widely patent. The vertebral arteries are codominant. There is no a neurysm, high-grade stenosis, or focal vessel cut off seen throughout the intracranial circulation. Jugular veins: Patent bilaterally. Dural sinuses: Patent. Lung apices: Emphysematous change is seen in the upper lobes. Upper lobe lung parenchyma is otherwise clear as visualized. Soft tissues: The visualized pharyngeal soft tissues are normal in appearance noting angiographic pha se technique. The oropharyngeal airway appears widely patent. The salivary and thyroid glands are nor mal in appearance. No cervical lymphadenopathy is seen. Skeletal structures: The skeletal structures are osteopenic. The calvarium appears intact. The cervic al spine is maintained noting multilevel spondylosis. No lytic or blastic lesion is seen. Orbits: The bony orbits are intact. Orbital contents are normal as visualized. Sinuses and mastoids: There is mild/moderate mucosal thickening within the right maxillary antrum. Tr lisandra mucosal thickening is seen within the right sphenoid sinus. The remaining paranasal sinuses are c lear. The mastoid air cells are well pneumatized. IMPRESSION: 1. There is no hemorrhage, mass effect, or evidence of acute territorial ischemia by CT criteria. 2. 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 This is similar to the 07/10/2022 examination. 3. There is complete thrombosis of the right common carotid artery as well as the right internal onofre tid artery to the level of the [place]. This is new from 07/10/2022. 4. The vertebral arteries are patent bilaterally. There is mild to moderate stenosis at the origin of the left vertebral artery. 5. The remaining intracranial vessels are patent. The anterior circulation is supplied via bilateral posterior communicating arteries. 6. Emphysema. ACT 112: Negative or not required by law. Electronically signed by: Dae Quintero M.D. 10/31/2022 6:17 PM
--- NOTE | 2022-10-31 20:02 | Emergency Department Note ---
History of Present Illness General Chief complaint: Neuro Symptoms/Deficit Stated complaint: VISION ISSUES Time Seen by Provider: 10/31/22 19:17 Source: patient, RN notes reviewed and old records reviewed Mode of arrival: ambulatory Limitations: no limitations History of Present Illness This patient is a 67-year-old female has history of vascular disease, comes in after having visual changes since last . She says she cannot see Facebook and just appears white. She says she also cannot see the TV as it looks like splurge of her vision. Besides that she is otherwise asymptomatic no fall or trauma. She is on Plavix and aspirin. No focal numbness or weakness. No difficulty speaking or swallowing no fever chills no dysuria hematuria no blood or melena stool. She did come in by EMS and apparently Dr. Baker's office did send her over. He did do a TCAR procedure on her in September. Home Medications Medication Instructions Recorded Confirmed Type tramadol 50 mg tablet 50 mg PO Q6H PRN pain #60 tabs 09/06/22 10/31/22 Rx aspirin 81 mg tablet,delayed 81 mg PO QAM #90 tabs 10/25/22 10/31/22 Rx release carvedilol 3.125 mg tablet 3.125 mg PO BIDM #14 tabs 10/25/22 10/31/22 Rx clopidogrel 75 mg tablet 75 mg PO QAM #90 tabs 10/25/22 10/31/22 Rx rosuvastatin 20 mg tablet 20 mg PO QAM #21 tabs 10/25/22 10/31/22 Rx Allergies Allergy/AdvReac Type Severity Reaction Status Date / Time No Known Allergies Allergy Mild Verified 10/31/22 21:16 Past Med/Surg History Medical History CAD (coronary artery disease) Remote LAD stent, repeat cath 2004 with 20% in stent restenosis Carotid artery disease Neck CTA 07/10/22- Status post right carotid endarterectomy. Luminal irregularity and narrowing of the proximal to mid cervical right internal carotid artery with approximate 70% stenosis which has progressed since prior CTA. 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 Occlusion with distal reconstitution versus severe stenosis of the right external carotid artery. Chronic anemia COPD (chronic obstructive pulmonary disease) Per records, pt denies CVA (cerebral vascular accident) 04/2021, residual memory issues + right hand weakness, no neurologist GERD (gastroesophageal reflux disease) Controlled History of GI bleed Hypertension Ischemic ulcer of right foot Follows with [facility] Left renal mass Left side, concern for RCC Pt unaware PAD (peripheral artery disease) S/p stent to right LE (February 2021) Bilateral iliac artery stenosis Poor historian S/P CVA Rectal mass Per records, pt unaware Vasculopathy Ventricular asystolia 2020, follows with [facility] cardio Surgical History 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 No issues noted per post-op anesthesia progress note. H/O exploratory laparotomy (01/22/21) Exploratory laparotomy, oversew perforated duodenal ulcer, abdominal washout. Dr. Craig 01/22/2021 H/O tubal ligation H/O vascular surgery 2 stents to right leg [facility] February 2021 History of colonoscopy History of esophagogastroduodenoscopy (EGD) (08/2021) gastritis w/ hemorrhage History of right-sided carotid endarterectomy (05/04/21) 30-40 sec chest compressions required during surgery for asystole - possible prior much shorter vagal episode in past as well S/P angioplasty (02/2021) distal SFA and [employer], RLE S/P peripheral artery angioplasty with stent placement (01/2021) RLE, iliac stent / SFA angioplasty S/P peripheral artery angioplasty with stent placement (11/2021) [employer]/Stent L SFA [place] teeth extracted Family History Mother , age 70 of lung cancer Diabetes Lung cancer Hypertension Father , age 52 of complications of vascular surgery. Lung cancer PAD (peripheral artery disease) Denies family history of Ovarian cancer Prostate cancer Myocardial infarction Breast cancer Colorectal cancer Social History Smoking Status: Current every day smoker Tobacco Type: Cigarettes Age Started Using Tobacco: 27; packs per day: 1; Cigarettes Per Day: 1 PPD x 30 years; Second Hand Exposure: No; Hx Alcohol Use: No (Previous heavy ETOH use- now occasional use) Hx Substance Use: No Preferred Language: [place] Communication Ability: Effective Visual Impairment: Limited Hearing Ability: Normal Photo Cartographer Required: No Beliefs That Will Affect Care: None marital status: Current Living Situation: Spouse current occupational status: employed current occupation: [employer] How many Children do You have: 2 Feels Safe at Home: Yes Childhood Exposure to Second-Hand Smoke: Yes caffeine: Yes during the past year weight has: remained stable Dental Care, Regularly: No Physical Activity Frequency: Does not Exercise Physical Activity Frequency Comment: on feet at work all day Seatbelt Use: always Sunscreen Use: No Assistive Devices: Wheelchair Review of Systems A total of 10 systems reviewed and were otherwise negative Physical Exam Vital Signs Vital Signs - 24 hr 10/31/22 14:38 10/31/22 20:14 10/31/22 20:17 Temperature 37.0 C Temperature Source Temporal Artery Scan Pulse Rate 89 Pulse Rate [Apical] 84 Pulse Rate from SpO2 Sensor Pulse Rhythm [Apical] Regular Pulse Strength [Apical] Normal Respiratory Rate 20 20 Respiratory Effort / Characteristics Non-Labored Spontaneous Respiratory Depth Shallow Respiratory Pattern Regular Blood Pressure 158/82 H Blood Pressure [Right Arm] 130/71 Blood Pressure Mean 107 Blood Pressure Mean [Right Arm] 90 Pulse Oximetry 97 91 99 Oxygen Delivery Method Room Air Room Air Room Air Sepsis Recent Fever Within 48 Hours No Sepsis New/Unexplained Change in Mental Status N/A Sepsis Action Taken by Nursing No Action Required 10/31/22 20:15 10/31/22 20:15 10/31/22 20:20 Temperature Temperature Source Pulse Rate 90 77 Pulse Rate [Apical] Pulse Rate from SpO2 Sensor 78 Pulse Rhythm [Apical] Pulse Strength [Apical] Respiratory Rate 24 20 Respiratory Effort / Characteristics Respiratory Depth Respiratory Pattern Blood Pressure 130/71 Blood Pressure [Right Arm] Blood Pressure Mean 90 Blood Pressure Mean [Right Arm] Pulse Oximetry 97 Oxygen Delivery Method Sepsis Recent Fever Within 48 Hours Sepsis New/Unexplained Change in Mental Status Sepsis Action Taken by Nursing 10/31/22 20:30 10/31/22 20:31 10/31/22 20:31 Temperature Temperature Source Pulse Rate 92 H 87 Pulse Rate [Apical] Pulse Rate from SpO2 Sensor 90 86 Pulse Rhythm [Apical] Pulse Strength [Apical] Respiratory Rate 22 22 Respiratory Effort / Characteristics Respiratory Depth Respiratory Pattern Blood Pressure 189/85 H Blood Pressure [Right Arm] Blood Pressure Mean 119 Blood Pressure Mean [Right Arm] Pulse Oximetry 96 95 Oxygen Delivery Method Sepsis Recent Fever Within 48 Hours Sepsis New/Unexplained Change in Mental Status Sepsis Action Taken by Nursing 10/31/22 20:40 10/31/22 20:45 10/31/22 20:45 Temperature Temperature Source Pulse Rate 83 79 Pulse Rate [Apical] Pulse Rate from SpO2 Sensor Pulse Rhythm [Apical] Pulse Strength [Apical] Respiratory Rate 19 24 Respiratory Effort / Characteristics Respiratory Depth Respiratory Pattern Blood Pressure 189/102 H Blood Pressure [Right Arm] Blood Pressure Mean 131 Blood Pressure Mean [Right Arm] Pulse Oximetry Oxygen Delivery Method Sepsis Recent Fever Within 48 Hours Sepsis New/Unexplained Change in Mental Status Sepsis Action Taken by Nursing 10/31/22 20:46 10/31/22 20:46 10/31/22 20:50 Temperature Temperature Source Pulse Rate 78 87 Pulse Rate [Apical] Pulse Rate from SpO2 Sensor Pulse Rhythm [Apical] Pulse Strength [Apical] Respiratory Rate 23 24 Respiratory Effort / Characteristics Respiratory Depth Respiratory Pattern Blood Pressure 183/84 H Blood Pressure [Right Arm] Blood Pressure Mean 117 Blood Pressure Mean [Right Arm] Pulse Oximetry 97 Oxygen Delivery Method Sepsis Recent Fever Within 48 Hours Sepsis New/Unexplained Change in Mental Status Sepsis Action Taken by Nursing 10/31/22 21:00 10/31/22 21:00 10/31/22 21:10 Temperature Temperature Source Pulse Rate 76 91 H Pulse Rate [Apical] Pulse Rate from SpO2 Sensor Pulse Rhythm [Apical] Pulse Strength [Apical] Respiratory Rate 25 H 21 Respiratory Effort / Characteristics Respiratory Depth Respiratory Pattern Blood Pressure 197/86 H Blood Pressure [Right Arm] Blood Pressure Mean 123 Blood Pressure Mean [Right Arm] Pulse Oximetry Oxygen Delivery Method Sepsis Recent Fever Within 48 Hours Sepsis New/Unexplained Change in Mental Status Sepsis Action Taken by Nursing 10/31/22 21:15 10/31/22 21:15 10/31/22 21:20 Temperature Temperature Source Pulse Rate 79 81 Pulse Rate [Apical] Pulse Rate from SpO2 Sensor Pulse Rhythm [Apical] Pulse Strength [Apical] Respiratory Rate 33 H 16 Respiratory Effort / Characteristics Respiratory Depth Respiratory Pattern Blood Pressure 183/96 H Blood Pressure [Right Arm] Blood Pressure Mean 125 Blood Pressure Mean [Right Arm] Pulse Oximetry Oxygen Delivery Method Sepsis Recent Fever Within 48 Hours Sepsis New/Unexplained Change in Mental Status Sepsis Action Taken by Nursing 10/31/22 21:30 10/31/22 21:30 10/31/22 21:40 Temperature Temperature Source Pulse Rate 79 83 Pulse Rate [Apical] Pulse Rate from SpO2 Sensor Pulse Rhythm [Apical] Pulse Strength [Apical] Respiratory Rate 21 22 Respiratory Effort / Characteristics Respiratory Depth Respiratory Pattern Blood Pressure 187/117 H Blood Pressure [Right Arm] Blood Pressure Mean 140 Blood Pressure Mean [Right Arm] Pulse Oximetry 95 Oxygen Delivery Method Sepsis Recent Fever Within 48 Hours Sepsis New/Unexplained Change in Mental Status Sepsis Action Taken by Nursing 10/31/22 21:45 10/31/22 21:45 10/31/22 21:50 Temperature Temperature Source Pulse Rate 76 78 Pulse Rate [Apical] Pulse Rate from SpO2 Sensor Pulse Rhythm [Apical] Pulse Strength [Apical] Respiratory Rate 15 23 Respiratory Effort / Characteristics Respiratory Depth Respiratory Pattern Blood Pressure 217/100 H Blood Pressure [Right Arm] Blood Pressure Mean 139 Blood Pressure Mean [Right Arm] Pulse Oximetry Oxygen Delivery Method Sepsis Recent Fever Within 48 Hours Sepsis New/Unexplained Change in Mental Status Sepsis Action Taken by Nursing 10/31/22 22:00 10/31/22 22:01 10/31/22 22:10 Temperature Temperature Source Pulse Rate 99 H 86 93 H Pulse Rate [Apical] Pulse Rate from SpO2 Sensor Pulse Rhythm [Apical] Pulse Strength [Apical] Respiratory Rate 20 15 19 Respiratory Effort / Characteristics Respiratory Depth Respiratory Pattern Blood Pressure Blood Pressure [Right Arm] Blood Pressure Mean Blood Pressure Mean [Right Arm] Pulse Oximetry Oxygen Delivery Method Sepsis Recent Fever Within 48 Hours Sepsis New/Unexplained Change in Mental Status Sepsis Action Taken by Nursing 10/31/22 22:20 10/31/22 22:30 10/31/22 22:40 Temperature Temperature Source Pulse Rate 84 87 90 Pulse Rate [Apical] Pulse Rate from SpO2 Sensor Pulse Rhythm [Apical] Pulse Strength [Apical] Respiratory Rate 18 14 16 Respiratory Effort / Characteristics Respiratory Depth Respiratory Pattern Blood Pressure Blood Pressure [Right Arm] Blood Pressure Mean Blood Pressure Mean [Right Arm] Pulse Oximetry Oxygen Delivery Method Sepsis Recent Fever Within 48 Hours Sepsis New/Unexplained Change in Mental Status Sepsis Action Taken by Nursing 10/31/22 22:50 10/31/22 23:00 10/31/22 23:10 Temperature Temperature Source Pulse Rate 86 84 78 Pulse Rate [Apical] Pulse Rate from SpO2 Sensor Pulse Rhythm [Apical] Pulse Strength [Apical] Respiratory Rate 13 19 24 Respiratory Effort / Characteristics Respiratory Depth Respiratory Pattern Blood Pressure Blood Pressure [Right Arm] Blood Pressure Mean Blood Pressure Mean [Right Arm] Pulse Oximetry 95 Oxygen Delivery Method Sepsis Recent Fever Within 48 Hours Sepsis New/Unexplained Change in Mental Status Sepsis Action Taken by Nursing General: Well developed well nourished middle-age female who in no acute distress, breathing comfortably on room air. Normal speech HEENT: Normal cephalic atraumatic. Pupils are equal round and reactive to light. Extraocular movements are intact. Oropharynx is pink with moist mucous membranes. No swelling of the mouth lips or tongue. Neck: Supple with a midline trachea. No meningeal signs or stiffness, no JVD or bruits. No Stridor. Chest: Clear to auscultation bilaterally with exception of some scattered wheezes. No increased work of breathing. Heart: Regular rate and rhythm without murmurs or gallops. Abdomen: Soft nontender, nondistended without rebound guarding or rigidity. Extremities: No cyanosis clubbing or edema in the left leg. She has a AKA on the right Spine/Back. Non tender to palpation. No CVA tenderness Skin: Good turgor without rashes. Neurologic exam: Cranial nerves two through 12 are intact. Motor and sensation are intact and symmetrical throughout with exception of the right AKA. Finger- nose intact Course Administered Medications Discontinued Medications Sodium Chloride (Nss 1000ml) 500 mls @ 999 mls/hr IV .Q31M ONE Stop: 10/31/22 16:57 Last Infusion: 10/31/22 21:06 Dose: 0 mls/hr Documented By: Admin: 10/31/22 20:34 Dose: 999 mls/hr Documented By: ANNALISA Ioversol (Optiray 320 500ml) 108 ml IV ONCE ONE Stop: 10/31/22 17:49 Last Admin: 10/31/22 17:55 Dose: 108 ml Documented By: DIANE Medical Decision Making Differential Diagnosis Stroke, spine vascular disease, ocular disease, infection, trauma, hemorrhage Medical Records Attestation: I reviewed the patient's medical records. Home Medications Current Medication List: was personally reviewed by me Laboratory Data Attestation: I reviewed the patient's lab results. Result diagrams: 10/31/22 14:59 10/31/22 14:59 Lab Results 10/31/22 10/31/22 10/31/22 Range/Units 14:54 14:59 14:59 WBC 5.17 (4.8-10.8) K/ul RBC 4.53 (3.93-5.22) M/uL Hgb 10.5 L (12.0-16.0) g/dl Hct 34.9 (34.1-44.9) % MCV 77.0 L (80.0-100.0) fL MCH 23.2 L (25.0-34.0) pg MCHC 30.1 L (32.0-36.0) g/dL RDW Std Deviation 55.8 H (36.4-46.3) fL RDW Coeff of Odette 20.1 H (11.5-14.5) % Plt Count 324 (130-400) K/uL MPV 8.8 L (9.4-12.3) fL Immature Gran % (Auto) 0.2 % Neut % (Auto) 66.0 % Lymph % (Auto) 21.9 % Amelia % (Auto) 8.5 % Eos % (Auto) 1.9 % Baso % (Auto) 1.5 % Neut # (Auto) 3.41 (1.4-6.5) K/uL Lymph # (Auto) 1.13 L (1.2-3.4) K/uL Amelia # (Auto) 0.44 (0.24-0.82) K/uL Eos # (Auto) 0.10 (0-0.50) K/uL Baso # (Auto) 0.08 (0-0.2) K/uL Immature Gran # (Auto) 0.01 (0.00-0.02) K/uL Anisocytosis Present PT 10.4 (9.0-12.0) Seconds INR 1.0 (0.9-1.1) APTT 24.6 (21.0-31.0) Seconds PTT Ratio 0.9 Sodium 139 (136-145) mmol/L Potassium 4.1 (3.5-5.1) mmol/L Chloride 105 (98-107) mmol/L Carbon Dioxide 27 (21-32) mmol/L Anion Gap 7 (3-11) BUN 15 (6-23) mg/dl Creatinine 0.51 L (0.6-1.2) mg/dl Est Cr Clr Drug Dosing Not Reportable Est GFR ( Amer) 117.0 ml/min Est GFR (Non-Af Amer) 100.9 ml/min BUN/Creatinine Ratio 29.4 H (10-20) Glucose 96 (70-99(Fasting)) mg/dl POC Glucose (70-99) mg/dl Calcium 9.6 (8.5-10.1) mg/dl Total Bilirubin 0.4 (0.2-1.0) mg/dl AST 13 (13-39) U/L ALT 7 (7-52) U/L Alkaline Phosphatase 121 H (34-104) U/L Total Protein 7.4 (6.0-8.3) gm/dl Albumin 4.2 (3.4-5.0) gm/dl Globulin 3.2 (2.5-4.0) gm/dl Albumin/Globulin Ratio 1.3 (0.9-2) SARS-CoV-2, RNA, NAAT (NEGATIVE) 10/31/22 10/31/22 Range/Units 20:20 21:55 WBC (4.8-10.8) K/ul RBC (3.93-5.22) M/uL Hgb (12.0-16.0) g/dl Hct (34.1-44.9) % MCV (80.0-100.0) fL MCH (25.0-34.0) pg MCHC (32.0-36.0) g/dL RDW Std Deviation (36.4-46.3) fL RDW Coeff of Odette (11.5-14.5) % Plt Count (130-400) K/uL MPV (9.4-12.3) fL Immature Gran % (Auto) % Neut % (Auto) % Lymph % (Auto) % Amelia % (Auto) % Eos % (Auto) % Baso % (Auto) % Neut # (Auto) (1.4-6.5) K/uL Lymph # (Auto) (1.2-3.4) K/uL Amelia # (Auto) (0.24-0.82) K/uL Eos # (Auto) (0-0.50) K/uL Baso # (Auto) (0-0.2) K/uL Immature Gran # (Auto) (0.00-0.02) K/uL Anisocytosis PT (9.0-12.0) Seconds INR (0.9-1.1) APTT (21.0-31.0) Seconds PTT Ratio Sodium (136-145) mmol/L Potassium (3.5-5.1) mmol/L Chloride (98-107) mmol/L Carbon Dioxide (21-32) mmol/L Anion Gap (3-11) BUN (6-23) mg/dl Creatinine (0.6-1.2) mg/dl Est Cr Clr Drug Dosing Est GFR ( Amer) ml/min Est GFR (Non-Af Amer) ml/min BUN/Creatinine Ratio (10-20) Glucose (70-99(Fasting)) mg/dl POC Glucose 108 H (70-99) mg/dl Calcium (8.5-10.1) mg/dl Total Bilirubin (0.2-1.0) mg/dl AST (13-39) U/L ALT (7-52) U/L Alkaline Phosphatase (34-104) U/L Total Protein (6.0-8.3) gm/dl Albumin (3.4-5.0) gm/dl Globulin (2.5-4.0) gm/dl Albumin/Globulin Ratio (0.9-2) SARS-CoV-2, RNA, NAAT NEGATIVE (NEGATIVE) Imaging Data Attestation: I personally reviewed and interpreted this imaging study as follows: My Impression: CT of the headno hemorrhage or mass-effect seen Radiologist's Impression: Head CTA 10/31/22 16:26 CT ANGIOGRAM OF THE BRAIN COMBO; CT ANGIOGRAM OF THE NECK CLINICAL HISTORY: Visual changes status post carotid endarterectomy. COMPARISON STUDY: CT and MRI of the brain dated 12/02/2021. CT radiograph of the brain dated 05/24/2021. CT angiogram of the neck dated 07/10/2022. TECHNIQUE: Unenhanced axial CT scan of the brain is performed. Subsequently, following the IV administration of 108 of Optiray 320, CT angiogram of the head and neck was performed from the aortic arch to the vertex. Images are reviewed in the axial, sagittal, and coronal planes. 3-D MIPS images are created and assessed. IV contrast was administered without complication. All measurements were calculated based on NASCET criteria. A dose lowering technique was utilized adhering to the principles of ALARA. CT DOSE: 1001.48 mGy.cm FINDINGS: Brain parenchyma: There is age-related involutional change noting mild subcortical and periventricular microangiopathic disease. Chronic lacunar infarcts in the left caudate head, centrum semiovale, and basal ganglia are tammi lar to previous. There is no hemorrhage, mass effect, or evidence of acute territorial ischemia by CT criteria. There is no evidence of enhancing mass lesion on the angiogram phase images. The ventricles, sulci, and cisterns are prominent secondary to motion change. Hallman-white matter differentiation is preserved. No extra-axial fluid collection is seen. Thoracic aorta: There is atherosclerotic calcification of the thoracic aorta. Visualized portions of the thoracic aorta are normal in caliber. The aortic arch demonstrates standard 3-vessel anatomy. 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 A stent in the internal carotid artery is thrombosed. There is likely reconstitution of flow within branches of the right external carotid artery. The origin is occluded. 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 This is thrombosed in the aortic arch to the skull base. There is likely reconstitution of flow within branches of the external carotid artery. Vertebral arteries: There is mild to moderate stenosis at the origin of the left vertebral artery. The vertebral arteries are otherwise widely patent bilaterally and codominant. Subclavian arteries: Widely patent bilaterally. Intracranial vasculature: There is atherosclerotic calcification of the cav ernous carotid arteries. 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 The vessels are occluded to the [place]. The anterior and middle cerebral arteries are patent bilaterally comment and are supplied by large bilateral posterior communicating arteries. The vertebrobasilar system and posterior cerebral arteries are widely patent. The vertebral arteries are codominant. There is no aneurysm, high-grade stenosis, or focal vessel cut off seen throughout the intracranial circulation. Jugular veins: Patent bilaterally. Dural sinuses: Patent. Lung apices: Emphysematous change is seen in the upper lobes. Upper lobe lung parenchyma is otherwise clear as visualized. Soft tissues: The visualized pharyngeal soft tissues are normal in appearance noting angiographic phase technique. The oropharyngeal airway appears widely patent. The salivary and thyroid glands are normal in appearance. No cervical lymphadenopathy is seen. Skeletal structures: The skeletal structures are osteopenic. The calvarium appears intact. The cervical spine is maintained noting multilevel spondylosis. No lytic or blastic lesion is seen. Orbits: The bony orbits are intact. Orbital contents are normal as visualized. Sinuses and mastoids: There is mild/moderate mucosal thickening within the right maxillary antrum. Trace mucosal thickening is seen within the right sphenoid sinus. The remaining paranasal sinuses are clear. The mastoid air cells are well pneumatized. IMPRESSION: 1. There is no hemorrhage, mass effect, or evidence of acute territorial ischemia by CT criteria. 2. 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 This is similar to the 07/10/2022 examination. 3. There is complete thrombosis of the right common carotid artery as well as the right internal carotid artery to the level of the [place]. This is new from 07/10/2022. 4. The vertebral arteries are patent bilaterally. There is mild to moderate stenosis at the origin of the left vertebral artery. 5. The remaining intracranial vessels are patent. The anterior circulation is supplied via bilateral posterior communicating arteries. 6. Emphysema. ACT 112: Negative or not required by law. Electronically signed by: Dae Quintero M.D. 10/31/2022 6:17 PM Neck CTA 10/31/22 16:26 CT ANGIOGRAM OF THE BRAIN COMBO; CT ANGIOGRAM OF THE NECK CLINICAL HISTORY: Visual changes status post carotid endarterectomy. COMPARISON STUDY: CT and MRI of the brain dated 12/02/2021. CT radiograph of the brain dated 05/24/2021. CT angiogram of the neck dated 07/10/2022. TECHNIQUE: Unenhanced axial CT scan of the brain is performed. Subsequently, following the IV administration of 108 of Optiray 320, CT angiogram of the head and neck was performed from the aortic arch to the vertex. Images are reviewed in the axial, sagittal, and coronal planes. 3-D MIPS images are created and assessed. IV contrast was administered without complication. All measurements were calculated based on NASCET criteria. A dose lowering technique was utilized adhering to the principles of ALARA. CT DOSE: 1001.48 mGy.cm FINDINGS: Brain parenchyma: There is age-related involutional change noting mild subcortical and periventricular microangiopathic disease. Chronic lacunar infarcts in the left caudate head, centrum semiovale, and basal ganglia are similar to previous. There is no hemorrhage, mass effect, or evidence of acute territorial ischemia by CT criteria. There is no evidence of enhancing mass lesion on the angiogram phase images. The ventricles, sulci, and cisterns are prominent secondary to motion change. Hallman-white matter differentiation is preserved. No extra-axial fluid collection is seen. Thoracic aorta: There is atherosclerotic calcification of the thoracic aorta. Visualized portions of the thoracic aorta are normal in caliber. The aortic arch demonstrates standard 3-vessel anatomy. 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 A stent in the internal carotid artery is thrombosed. There is likely reconstitution of flow within branches of the right external carotid artery. The origin is occluded. 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 This is thrombosed in the aortic arch to the skull base. There is likely reconstitution of flow within branches of the external carotid artery. Vertebral arteries: There is mild to moderate stenosis at the origin of the left vertebral artery. The vertebral arteries are otherwise widely patent bilaterally and codominant. Subclavian arteries: Widely patent bilaterally. Intracranial vasculature: There is atherosclerotic calcification of the cavernous carotid arteries. 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 The vessels are occluded to the [place]. The anterior and middle cerebral arteries are patent bilaterally comment and are supplied by large bilateral posterior communicating arteries. The vertebrobasilar system and posterior cerebral arteries are widely patent. The vertebral arteries are codominant. There is no aneurysm, high-grade stenosis, or focal vessel cut off seen throughout the intracranial circulation. Jugular veins: Patent bilaterally. Dural sinuses: Patent. Lung apices: Emphysematous change is seen in the upper lobes. Upper lobe lung parenchyma is otherwise clear as visualized. Soft tissues: The visualized pharyngeal soft tissues are normal in appearance noting angiographic phase technique. The oropharyngeal airway appears widely patent. The salivary and thyroid glands are normal in appearance. No cervical lymphadenopathy is seen. Skeletal structures: The skeletal structures are osteopenic. The calvarium appears intact. The cervical spine is maintained noting multilevel spondylosis. No lytic or blastic lesion is seen. Orbits: The bony orbits are intact. Orbital contents are normal as visualized. Sinuses and mastoids: There is mild/moderate mucosal thickening within the right maxillary antrum. Trace mucosal thickening is seen within the right sphenoid s inus. The remaining paranasal sinuses are clear. The mastoid air cells are well pneumatized. IMPRESSION: 1. There is no hemorrhage, mass effect, or evidence of acute territorial ischemia by CT criteria. 2. 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 This is similar to the 07/10/2022 examination. 3. There is complete thrombosis of the right common carotid artery as well as the right internal carotid artery to the level of the [place]. This is new from 07/10/2022. 4. The vertebral arteries are patent bilaterally. There is mild to moderate stenosis at the origin of the left vertebral artery. 5. The remaining intracranial vessels are patent. The anterior circulation is supplied via bilateral posterior communicating arteries. 6. Emphysema. ACT 112: Negative or not required by law. Electronically signed by: Dae Quintero M.D. 10/31/2022 6:17 PM ECG Data Attestation: I personally reviewed and interpreted this ECG as follows: Indication: + chest pain Rate (beats per minute): 77 Rhythm: + normal sinus ECG Intervals/blocks: + Normal QRS, + Normal QT and + Normal HI ECG [place]: + Normal ECG ST segments: + Nonspecific ST abnormalities ECG Findings: no PACs or no PVCs Comparison ECG Date: from (12/22/21) Change: the following changes noted (Nonspecific ST and T wave abnormalities are now) MDM Narrative This Patient comes in after having visual changes for 5 or 6 days now. She has no other neurologic symptoms. She is on Plavix and aspirin and had a TCAR procedure done about a month ago. She did have labs done in triage and IV ac cess was established and she had angiography ordered before I saw her. There is a delay due to lack of beds and high volume. When I checked her vision she is able to see fingers and identify them and does not appear to have any visual field cuts. Her angiography does show bilateral carotid occlusion 1 of which appears chronic and 1 of which appears new, the posterior circulation is open.I discussed case with Dr. Baker, he did not feel she need to be on any further blood thinners besides the Plavix and aspirin but we are going to observe her. She may need MRI further work-up. I have consulted the [facility] hospitalist to see her. They have ordered MRI and further work-up. Impression & Plan Left carotid artery occlusion, Recurrent stenosis of right carotid artery, Bilateral visual loss, Acute electrocardiogram changes, Lab test negative for COVID-19 virus Discharge Plan Visit Data Chief Complaint: Neuro Symptoms/Deficit Stated Complaint: VISION ISSUES ED Provider: Quinton Soler Discharge Problem: Left carotid artery occlusion, Recurrent stenosis of right carotid artery, Bilateral visual loss, Acute electrocardiogram changes, Lab test negative for COVID-19 virus Forms Stand Alone Forms: My [facility] Prescriptions Prescriptions: No Action tramadol 50 mg tablet 50 mg PO Q6H PRN (Reason: pain) Qty: 60 0RF aspirin 81 mg tablet,delayed release (DR/EC) 81 mg PO QAM Qty: 90 1RF clopidogrel 75 mg tablet 75 mg PO QAM Qty: 90 3RF carvedilol 3.125 mg tablet 3.125 mg PO BIDM Qty: 14 0RF Rx Instructions: must administer with a meal/food rosuvastatin 20 mg tablet 20 mg PO QAM Qty: 21 0RF Referrals Referrals: Go Landeros CRNP [Primary Care Provider] -
--- NOTE | 2022-10-31 20:05 | History & Physical Report ---
Date of Service October 31, 2022 Assessment & Plan (1) Bilateral visual loss: Plan: - 6 days constant blurred vision, L > R with on and off right eye pain. Patient able to read some objects close up, no areas of total vision loss or transient loss. No floaters. - Head/ neck CTA: complete thrombosis of the left common carotid artery and the left internal carotid artery to the level of the [place]. This is similar to the 07/10/2022 examination. There is complete thrombosis of the right common carotid artery as well as the right internal carotid artery to the level of the [place]. This is new from 07/10/2022. - MRA ordered, to be performed tomorrow AM after confirmation with Dr. Baker. - Vascular surgery consulted, appreciate their recommendations and assistance with this patient. - Hypercoag panel ordered. - Lipid panel in May all wnl. - Strongly encouraged tobacco cessation. (2) Carotid artery disease: Plan: - As above. - Continue ASA, Plavix, statin. (3) Recurrent stenosis of right carotid artery: Plan: - Recent TCAR on 10/10 with apparent restenosis. (4) PAD (peripheral artery disease): Plan: - Continue ASA, Plavix, statin. (5) History of CVA (cerebrovascular accident): Plan: - Continue ASA, Plavix, statin. (6) COPD (chronic obstructive pulmonary disease): Plan: - Continue home inhalers. (7) Hypertension: Plan: - Continue losartan, carvedilol. (8) Acute electrocardiogram changes: Plan: - EKG with some ST segment and T wave change sin lateral leads, patient not complaining of any chest pain/pressure/tightness, SOB, or palpitations. - Will trend troponin and limited view echo as she just had one on 09/30/22--EF 60% with grade 1 diastolic dysfunction, moderate LVH, no significant valvular abnormalities. Plan - Admit to PCU. - SCDS, Lovenox for VTE pppx. - Full Code. History of Present Illness Chief Complaint: b/l vision loss x 6 days Primary Care Provider: LAKSHMI Garza Daniela Renee is a 67-year-old female with past medical history of carotid artery stenosis s/p TCAR, CVA, PAD, COPD, and hypertension who is presenting today with vision loss. For 6 days she has had blurry vision in both eyes, noting she cannot read face because the screen just looks like a large white screen without any letters, cannot read time on her cell phone but can see well enough to identify large, general objects and read some things if the font is big enough. She has had MOUTH: Mucous membranes moist, no lesions, tongue and gums appear normal. Pain behind her right eye, actually notices the vision is more blurred in her left eye than her right. Is been constant, without any visual field cuts or floaters. She did not have any speech difficulties, focal weakness, numbness, tingling. She has been compliant with all her medications except for carvedilol, which she only takes once a day instead of twice a day as prescribed because it makes her sleepy. She was admitted 10/10-10/13 for TCAR of her right carotid artery, without any complications besides episodes of hypoxemia thought to be related to poor oximeter readings 2/2 PAD rather than true hypoxia as forehead probe gave readings in high 90s on room air. Head/neck CTA shows complete thrombosis of the left common carotid artery and the left internal carotid artery to the level of the [place]. This is similar to the 07/10/2022 examination. There is complete thrombosis of the right common carotid artery as well as the right internal carotid artery to the level of the [place]. This is new from 07/10/2022. The vertebral arteries are patent bilaterally. There is mild to moderate stenosis at the origin of the left vertebral artery. The remaining intracranial vessels are patent. The anterior circulation is supplied via bilateral posterior communicating arteries. Case was discussed with vascular surgery who recommended admission for further workup and continuing patient on Plavix + aspirin. Allergies Allergy/AdvReac Type Severity Reaction Status Date / Time No Known Allergies Allergy Mild Verified 10/31/22 21:16 Home Medications Medication Instructions Recorded Confirmed Type aspirin 81 mg tablet,delayed 81 mg PO QAM #90 tabs 10/25/22 10/31/22 Rx release carvedilol 3.125 mg tablet 3.125 mg PO BIDM #14 tabs 10/25/22 10/31/22 Rx clopidogrel 75 mg tablet 75 mg PO QAM #90 tabs 10/25/22 10/31/22 Rx rosuvastatin 20 mg tablet 20 mg PO QAM #21 tabs 10/25/22 10/31/22 Rx tramadol 50 mg tablet 50 mg PO Q6H PRN pain #60 tabs 11/02/22 Rx Past Med/Surg History Medical History CAD (coronary artery disease) Remote LAD stent, repeat cath 2004 with 20% in stent restenosis Carotid artery disease Neck CTA 07/10/22- Status post right carotid endarterectomy. Luminal irr egularity and narrowing of the proximal to mid cervical right internal carotid artery with approximate 70% stenosis which has progressed since prior CTA. 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 Occlusion with distal reconstitution versus severe stenosis of the right external carotid artery. Carotid stent occlusion Chronic anemia COPD (chronic obstructive pulmonary disease) Per records, pt denies CVA (cerebral vascular accident) 04/2021, residual memory issues + right hand weakness, no neurologist GERD (gastroesophageal reflux disease) Controlled History of GI bleed Hypertension Ischemic ulcer of right foot Follows with [facility] Left renal mass Left side, concern for RCC Pt unaware PAD (peripheral artery disease) S/p stent to right LE (February 2021) Bilateral iliac artery stenosis Poor historian S/P CVA Rectal mass Per records, pt unaware Vasculopathy Ventricular asystolia 2020, follows with [facility] cardio Surgical History 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 No issues noted per post-op anesthesia progress note. H/O exploratory laparotomy (01/22/21) Exploratory laparotomy, oversew perforated duodenal ulcer, abdominal washout. Dr. Craig 01/22/2021 H/O tubal ligation H/O vascular surgery 2 stents to right leg [facility] February 2021 History of colonoscopy History of esophagogastroduodenoscopy (EGD) (08/2021) gastritis w/ hemorrhage History of right-sided carotid endarterectomy (05/04/21) 30-40 sec chest compressions required during surgery for asystole - possible prior much shorter vagal episode in past as well S/P angioplasty (02/2021) distal SFA and [employer], RLE S/P peripheral artery angioplasty with stent placement (01/2021) RLE, iliac stent / SFA angioplasty S/P peripheral artery angioplasty with stent placement (11/2021) [employer]/Stent L SFA Status post bilateral carotid endarterectomy [place] teeth extracted Family History Mother , age 70 of lung cancer Diabetes Lung cancer Hypertension Father , age 52 of complications of vascular surgery. Lung cancer PAD (peripheral artery disease) Denies family history of Ovarian cancer Prostate cancer Myocardial infarction Breast cancer Colorectal cancer Social History Smoking Status: Current every day smoker Tobacco Type: Cigarettes Age Started Using Tobacco: 23; packs per day: 1; Cigarettes Per Day: 1 PPD x 35 years; Second Hand Exposure: No; Hx Alcohol Use: Yes (Previous heavy ETOH use- now occasional use) Alcohol type: beer and other Alcohol Intake Frequency: 4 or More x per/Week Alcohol Intake Frequency Comment: 2-3 beers daily or more Hx Substance Use: No Preferred Language: Kosovan Communication Ability: Effective Visual Impairment: Limited Hearing Ability: Normal Transformer Mechanic Required: No Beliefs That Will Affect Care: Anglican marital status: Current Living Situation: Spouse current occupational status: retired current occupation: [employer]- stopped work after AK[employer] How many Children do You have: 2 Feels Safe at Home: Yes Childhood Exposure to Second-Hand Smoke: Yes caffeine: Yes during the past year weight has: remained stable Dental Care, Regularly: No Physical Activity Frequency: Does not Exercise Physical Activity Frequency Comment: on feet at work all day Seatbelt Use: always Sunscreen Use: No Assistive Devices: None Review of Systems Review of Systems: Constitutional: No fever/chills, weakness, fatigue, myalgias, anorexia, night sweats Eyes: blurreed v/l vision, L > R x days without visual field cuts, double vision ENT: normal hearing, no trouble swallowing Respiratory: No cough, sputum, dyspnea at rest or on exertion Cardiovascular: No chest pain, tightness or palpitations Abdomen: No pain, nausea, vomiting, diarrhea or constipation : Denies dysuria, hematuria, increased urgency/frequency, urinary retention Musculoskeletal: No joint pain, calf pain, swelling Neurologic: No weakness, numbness/tingling, or balance problems Psychiatric: No anxiety or depression Skin: No rash or itch Physical Exam Physical Exam: General: awake, alert, no apparent distress Head: Normocephalic, atraumatic ENT: PERRL, EOMI, no pharyngeal exudate, mucous membranes moist Chest: Clear to auscultation, on room air, no adventitious breath sounds Cardiac: Regular rate and rhythm, no murmur, no JVD, normal peripheral pulses, good capillary refill Abdominal: NABS x 4 quadrants, soft, nontender to palpation, no rebound, guarding or tenderness Extremities: Normal inspection, no peripheral edema or erythema, calfs nontender to palpation Psych: Normal mood and affect Neuro: AAO x 3, strength intact bilaterally and rated 5/5, no motor deficits, speech is clear, no peripheral sensory deficits Skin: no rash or erythema Eyes: normal visual ludwig by confrontation, PERRL, normal accommodation, EOM intact bilaterally and reactive pupils; no scleral abnormality, no position abnormality, pupils not irregular, normal pupil size, no EOM movement deficit, no nystagmus and no photophobia Results & Data Results & Data ([facility]) Vital Signs (Past 12 Hours) Vital Signs Temp Pulse Resp BP Pulse Ox O2 Del Method 10/31/22 14:38 37.0 C 89 20 158/82 H 97 Room Air Laboratory Results Abnormal lab results 10/31/22 10/31/22 10/31/22 Range/Units 14:59 14:59 20:20 Hgb 10.5 L (12.0-16.0) g/dl MCV 77.0 L (80.0-100.0) fL MCH 23.2 L (25.0-34.0) pg MCHC 30.1 L (32.0-36.0) g/dL RDW Std Deviation 55.8 H (36.4-46.3) fL RDW Coeff of Odette 20.1 H (11.5-14.5) % MPV 8.8 L (9.4-12.3) fL Lymph # (Auto) 1.13 L (1.2-3.4) K/uL Creatinine 0.51 L (0.6-1.2) mg/dl BUN/Creatinine Ratio 29.4 H (10-20) POC Glucose 108 H (70-99) mg/dl Alkaline Phosphatase 121 H (34-104) U/L Diagnostic Findings Head CTA 10/31/22 16:26 CT ANGIOGRAM OF THE BRAIN COMBO; CT ANGIOGRAM OF THE NECK CLINICAL HISTORY: Visual changes status post carotid endarterectomy. COMPARISON STUDY: CT and MRI of the brain dated 12/02/2021. CT radiograph of the brain dated 05/24/2021. CT angiogram of the neck dated 07/10/2022. TECHNIQUE: Unenhanced axial CT scan of the brain is performed. Subsequently, following the IV administration of 108 of Optiray 320, CT angiogram of the head and neck was performed from the aortic arch to the vertex. Images are reviewed in the axial, sagittal, and coronal planes. 3-D MIPS images are created and assessed. IV contrast was administered without complication. All measurements were calculated based on NASCET criteria. A dose lowering technique was utilized adhering to the principles of ALARA. CT DOSE: 1001.48 mGy.cm FINDINGS: Brain parenchyma: There is age-related involutional change noting mild subcortical and periventricular microangiopathic disease. Chronic lacunar infarcts in the left caudate head, centrum semiovale, and basal ganglia are similar to previous. There is no hemorrhage, mass effect, or evidence of acute territorial ischemia by CT criteria. There is no evidence of enhancing mass lesion on the angiogram phase images. The ventricles, sulci, and cisterns are prominent secondary to motion change. Hallman-white matter differentiation is preserved. No extra-axial fluid collection is seen. Thoracic aorta: There is atherosclerotic calcification of the thoracic aorta. Visualized portions of the thoracic aorta are normal in caliber. The aortic arch demonstrates standard 3-vessel anatomy. 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 A stent in the internal carotid artery is thrombosed. There is likely reconstitution of flow within branches of the right external carotid artery. The origin is occluded. 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 This is thrombosed in the aortic arch to the skull base. There is likely reconstituti on of flow within branches of the external carotid artery. Vertebral arteries: There is mild to moderate stenosis at the origin of the left vertebral artery. The vertebral arteries are otherwise widely patent bilaterally and codominant. Subclavian arteries: Widely patent bilaterally. Intracranial vasculature: There is atherosclerotic calcification of the cavernous carotid arteries. 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 The vessels are occluded to the [place]. The anterior and middle cerebral arteries are patent bilaterally comment and are supplied by large bilateral posterior communicating arteries. The vertebrobasilar system and posterior cerebral arteries are widely patent. The vertebral arteries are codominant. There is no aneurysm, high-grade stenosis, or focal vessel cut off seen throughout the intracranial circulation. Jugular veins: Patent bilaterally. Dural sinuses: Patent. Lung apices: Emphysematous change is seen in the upper lobes. Upper lobe lung parenchyma is otherwise clear as visualized. Soft tissues: The visualized pharyngeal soft tissues are normal in appearance noting angiographic phase technique. The oropharyngeal airway appears widely patent. The salivary and thyroid glands are normal in appearance. No cervical lymphadenopathy is seen. Skeletal structures: The skeletal structures are osteopenic. The calvarium appears intact. The cervical spine is maintained noting multilevel spondylosis. No lytic or blastic lesion is seen. Orbits: The bony orbits are intact. Orbital contents are normal as visualized. Sinuses and mastoids: There is mild/moderate mucosal thickening within the right maxillary antrum. Trace mucosal thickening is seen within the right sphenoid sinus. The remaining paranasal sinuses are clear. The mastoid air cells are well pneumatized. IMPRESSION: 1. There is no hemorrhage, mass effect, or evidence of acute territorial ischemia by CT criteria. 2. There is complete thrombosis of the left common carotid artery and the left internal carotid artery to the level of the [place]. This is similar to the 07/10/2022 examination. 3. There is complete thrombosis of the right common carotid artery as well as the right internal carotid artery to the level of the [place]. This is new from 07/10/2022. 4. The vertebral arteries are patent bilaterally. There is mild to moderate stenosis at the origin of the left vertebral artery. 5. The remaining intracranial vessels are patent. The anterior circulation is supplied via bilateral posterior communicating arteries. 6. Emphysema. ACT 112: Negative or not required by law. Electronically signed by: Dae Quintero M.D. 10/31/2022 6:17 PM Neck CTA 10/31/22 16:26 CT ANGIOGRAM OF THE BRAIN COMBO; CT ANGIOGRAM OF THE NECK CLINICAL HISTORY: Visual changes status post carotid endarterectomy. COMPARISON STUDY: CT and MRI of the brain dated 12/02/2021. CT radiograph of the brain dated 05/24/2021. CT angiogram of the neck dated 07/10/2022. TECHNIQUE: Unenhanced axial CT scan of the brain is performed. Subsequently, following the IV administration of 108 of Optiray 320, CT angiogram of the head and neck was performed from the aortic arch to the vertex. Images are reviewed in the axial, sagittal, and coronal planes. 3-D MIPS images are created and assessed. IV contrast was administered without complication. All measurements were calculated based on NASCET criteria. A dose lowering technique was utilized adhering to the principles of ALARA. CT DOSE: 1001.48 mGy.cm FINDINGS: Brain parenchyma: There is age-related involutional change noting mild subcortical and periventricular microangiopathic disease. Chronic lacunar infarcts in the left caudate head, centrum semiovale, and basal ganglia are similar to previous. There is no hemorrhage, mass effect, or evidence of acute territorial ischemia by CT criteria. There is no evidence of enhancing mass lesion on the angiogram phase images. The ventricles, sulci, and cisterns are prominent secondary to motion change. Hallman-white matter differentiation is preserved. No extra-axial fluid collection is seen. Thoracic aorta: There is atherosclerotic calcification of the thoracic aorta. Visualized portions of the thoracic aorta are normal in caliber. The aortic arch demonstrates standard 3-vessel anatomy. 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 A stent in the internal carotid artery is thrombosed. There is likely reconstitution of flow within branches of the right external carotid artery. The origin is occluded. 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 This is thrombosed in the aortic arch to the skull base. There is likely reconstitution of flow within branches of the external carotid artery. Vertebral arteries: There is mild to moderate stenosis at the origin of the left vertebral artery. The vertebral arteries are otherwise widely patent bilaterally and codominant. Subclavian arteries: Widely patent bilaterally. Intracranial vasculature: There is atherosclerotic calcification of the cavernous carotid arteries. 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 The vessels are occluded to the [place]. The anterior and middle cerebral arteries are patent bilaterally comment and are supplied by large bilateral posterior communicating arteries. The vertebrobasilar system and posterior cerebral arteries are widely patent. The vertebral arteries are codominant. There is no aneurysm, high-grade stenosis, or focal vessel cut off seen throughout the intracranial circulation. Jugular veins: Patent bilaterally. Dural sinuses: Patent. Lung apices: Emphysematous change is seen in the upper lobes. Upper lobe lung parenchyma is otherwise clear as visualized. Soft tissues: The visualized pharyngeal soft tissues are normal in appearance noting angiographic phase technique. The oropharyngeal airway appears widely patent. The salivary and thyroid glands are normal in appearance. No cervical lymphadenopathy is seen. Skeletal structures: The skeletal structures are osteopenic. The calvarium appears intact. The cervical spine is maintained noting multilevel spondylosis. No lytic or blastic lesion is seen. Orbits: The bony orbits are intact. Orbital contents are normal as visualized. Sinuses and mastoids: There is mild/moderate mucosal thickening within the right maxillary antrum. Trace mucosal thickening is seen within the right sphenoid sinus. The remaining paranasal sinuses are clear. The mastoid air cells are well pneumatized. IMPRESSION: 1. There is no hemorrhage, mass effect, or evidence of acute territorial ischemia by CT criteria. 2. There is complete thrombosis of the left common carotid artery and the left internal carotid artery to the level of the [place]. This is similar to the 07/10/2022 examination. 3. There is complete thrombosis of the right common carotid artery as well as the right internal carotid artery to the level of the [place]. This is new from 07/10/2022. 4. The vertebral arteries are patent bilaterally. There is mild to moderate stenosis at the origin of the left vertebral artery. 5. The remaining intracranial vessels are patent. The anterior circulation is supplied via bilateral posterior communicating arteries. 6. Emphysema. ACT 112: Negative or not required by law. Electronically signed by: Dae Quintero M.D. 10/31/2022 6:17 PM Supervising Physician Co-Signing Physician Notes Attending addendum: I have physically seen this patient, have supervised the CAITLIN's activities, and agree with the H&P unless as otherwise noted. Assessment and Plan: Vision loss- Patient reports 6 days of constant blurred vision, left greater than right, with intermittent right eye pain CTA head and neck: Complete thrombosis left CCA and left ICA to level of [place], which is similar to 07/10/2022 examination Complete thrombosis of right CCA and right ICA to level of [place] is new Vascular surgery Dr. Baker consulted by the ED over the phone and aware Order hypercoagulable panel Tobacco cessation Continue aspirin, clopidogrel and high-dose statin PAD- Same treatment as above COPD- Continue routine inhalers Hypertension- Continue losartan and carvedilol, would avoid low blood pressures. Remaining orders and notations as noted PG Care Time/CCT Total # of Minutes Spent Total Time Spent with Patient: Total time spent is greater than 50% in coordination of care (as documented) at patient's floor/unit and/or counseling patient: Coding Level of Care Code 20688 INT INP/OBS CARE 3/75MIN Diagnoses Bilateral visual loss H54.3 Carotid artery disease I65.23 Carotid artery disease type: stenosis Laterality: bilateral Recurrent stenosis of right carotid artery I65.21 PAD (peripheral artery disease) I73.9 History of CVA (cerebrovascular accident) Z86.73 COPD (chronic obstructive pulmonary disease) J44.9 Hypertension I10 Acute electrocardiogram changes R94.31 (1) Carotid artery disease Carotid artery disease type: stenosis Laterality: bilateral Qualified Code(s): I65.23 - Occlusion and stenosis of bilateral carotid arteries
[2022-10-31 20:43] LABS: Partial Thromboplastin Ratio 0.9; Partial Thromboplastin Time 24.6 Seconds (21.0-31.0); Prothrombin Time 10.4 Seconds (9.0-12.0)
[2022-11-01] MEDS ORDERED: ONDANSETRON INJ 2 MG/ML 2 ML VIAL IV PRN (00:21)
[2022-11-01] MEDS ORDERED: traMADol HCL 50 MG TABLET PO PRN (00:21)
[2022-11-01] MEDS ORDERED: POLYETHYLENE (MIRALAX) 17 GM PACK PO PRN (00:21)
[2022-11-01] MEDS ORDERED: ALUMINUM/MAGNESIUM SUSP 30 ML UDC PO PRN (00:21)
[2022-11-01 06:32] LABS: Chol HDL Ratio 2.2 (0-5)
[2022-11-01 06:37] LABS: Troponin I High Sensitivity 9.3 pg/ml (0-14)
[2022-11-01] MEDS: UMECLIDINIUM/VILANTEROL 62.5/25MCG 7 PUFFS/INHALER INH SCH (07:40)
[2022-11-01] MEDS: LOSARTAN POTASSIUM 25 MG TAB PO SCH (07:41)
[2022-11-01] MEDS: ASPIRIN 81 MG ECTAB PO SCH (07:41)
[2022-11-01] MEDS: ROSUVASTATIN CALCIUM 20 MG TAB PO SCH (07:41)
[2022-11-01] MEDS: carvediloL 3.125 MG TAB PO SCH ×2 (07:42→17:26)
[2022-11-01] MEDS: CLOPIDOGREL BISULFATE 75 MG TAB PO SCH (07:44)
--- NOTE | 2022-11-01 07:45 | Hospitalist Progress Note ---
Date of Service November 01, 2022 Assessment & Plan (1) Carotid stent occlusion: Plan: 67-year-old female with past medical history of carotid artery stenosis s/p TCAR, CVA, PAD, COPD, and hypertension who is presenting today with vision loss. (1) Bilateral visual loss: Plan: - 6 days ago abrupt constant blurred vision still ongoing, L > R with on and off right eye pain. Patient able to read some objects close up, no areas of total vi yen loss or transient loss. No floaters. - Head/ neck CTA: complete thrombosis of the left common carotid artery and the left internal carotid artery to the level of [place]. This is sim ilar to the 07/10/2022 examination. There is complete thrombosis of the right common carotid artery as well as the right internal carotid artery to the level of [place]. This is new from 07/10/2022. - MRA = Occlusion of the cervical bilateral internal carotid arteries with distal reconstitution, as shown on CTA of October 31, 2022. No additional sites of vessel occlusion identified. Exam mildly compromised by motion artifact. - MRI brain = Subcentimeter acute infarcts are noted within the centrum semiovale watershed distribution of the right greater than left frontal parietal lobes. Chronic infarcts of the left frontal lobe turner radiata and left basal ganglia. Involutional changes with chronic microvascular ischemic disease. Occlusion of the internal carotid arteries, better characterized on the comparison CTA head study. - Vascular surgery consulted, appreciate their recommendations and assistance with this patient. no indications for intervention at this time - Hypercoag panel ordered, pending - Lipid panel in May all wnl. - Strongly encouraged tobacco cessation. (2) Carotid artery disease: Plan: - As above. - Continue ASA, Plavix, statin. (3) Recurrent stenosis of right carotid artery: Plan: - Recent TCAR on 10/10 with apparent restenosis. (4) PAD (peripheral artery disease): Plan: - Continue ASA, Plavix, statin. (5) History of CVA (cerebrovascular accident): Plan: - Continue ASA, Plavix, statin. (6) COPD (chronic obstructive pulmonary disease): Plan: - Continue home inhalers. (7) Hypertension: Plan: - Continue losartan, carvedilol. (8) Acute electrocardiogram changes: Plan: - EKG with some ST segment and T wave change sin lateral leads, patient not complaining of any chest pain/pressure/tightness, SOB, or palpitations. - Troponin wnl, and limited view echo as she just had one on 09/30/22--EF 60% with grade 1 diastolic dysfunction, moderate LVH, no significant valvular abnormalities. Plan - Admit to PCU. - SCDS, Lovenox for VTE pppx. - Full Code. (2) Left carotid artery occlusion: (3) Acute electrocardiogram changes: (4) Bilateral visual loss: (5) Hypoxia: Admission and Anticipated Discharge Date Admission Date: October 31, 2022 Supervising Physician Co-Signing Physician Notes I personally examined the patient and verified all finney points of history and exam, discussed case, and agree with decision making with Dr Kitchen. A little bit of a difficult historian, but revisiting her HPIshe had fairly abrupt onset of left eye white blindness about 6 days ago. It seems to have come on pretty abruptly, there may have been some waxing and waning versus simply adapting with her other eye. No pain Vitals noted, in general she is awake and alert pleasant no distress. HEENT normocephalic atraumatic mucous membranes moist. Right eye has modest acuity left is very poor. Right eye does not show any gross funduscopic abnormalities that I am able to see, able to see the disc and blood vessels clearly. Left eye really cannot see anything, she denies having a cataract, but everything is very cloudy. Abrupt vision losssuspect central retinal artery occlusion by her history. Med management, secondary risk reduction, therapy, otherwise as above Subjective Patient seen at bedside, calm comfortable cooperative. States last she was on facebook when suddenly her vision turned white, afterwards noticed loss of vision on the left eye and some on the right eye. Otherwise denies headache dizziness SOB weakness loss of sensation Patient is able to read with right eye more on the lower side of the page than the higher side of the page. Patient unable to make out words with left eye, able to detect movement see fingers on hand up close. Review of Systems Review of Systems: All systems reviewed & are unremarkable except as noted in HPI & below Physical Exam Constitutional: well developed, well nourished, cooperative and comfortable Eyes: noted haziness of left pupil. Vision acuity markedly decreased in left eye. Able to read words with right eye in lower visual field, unable to read in upper visual field. ENMT: external ear and nose normal, oropharynx normal Neck: trachea midline, no thyromegaly Respiratory: Auscultation: + wheezes (diffuse) Cardiovascular: Rate/Rhythm: regular rate and regular rhythm Gastrointestinal (Abdomen): Inspection/Auscultation: abdomen normal to inspection; abdomen not distended Percussion/Palpation: abdomen soft; abdomen nontender Musculoskeletal: no cyanosis or clubbing, extremities motor strength 5/5 Skin: no rashes, warm and dry Neurologic: normal touch/pain/proprioception, CN's II-XI intact bilaterally and moves all extremities Results & Data Results & Data ([facility]) Vital Signs (Past 12 Hours) Vital Signs Pulse Pulse Resp BP BP Pulse Ox O2 Del Method 11/01/22 05:28 173/88 H 11/01/22 05:19 95 H 22 93 Room Air 11/01/22 05:14 Room Air 11/01/22 01:20 82 18 186/75 H 11/01/22 01:10 95 H 17 93 11/01/22 01:00 86 20 96 11/01/22 00:50 88 16 94 11/01/22 00:40 98 H 14 96 11/01/22 00:30 87 16 95 11/01/22 00:20 86 19 11/01/22 00:10 92 H 14 11/01/22 00:00 87 12 10/31/22 23:50 84 22 10/31/22 23:40 83 20 10/31/22 23:30 93 H 22 10/31/22 23:20 99 H 21 11/01/22 01:45 Room Air 11/01/22 01:27 94 H 22 96 Room Air 10/31/22 23:10 78 24 95 10/31/22 23:00 84 19 10/31/22 22:50 86 13 10/31/22 22:40 90 16 10/31/22 22:30 87 14 10/31/22 22:20 84 18 10/31/22 22:10 93 H 19 10/31/22 22:01 86 15 10/31/22 22:00 99 H 20 10/31/22 21:50 78 23 10/31/22 21:45 217/100 H 10/31/22 21:45 76 15 10/31/22 21:40 83 22 95 10/31/22 21:30 79 21 10/31/22 21:30 187/117 H 10/31/22 21:20 81 16 10/31/22 21:15 183/96 H 10/31/22 21:15 79 33 H 10/31/22 21:10 91 H 21 10/31/22 21:00 76 25 H 10/31/22 21:00 197/86 H 10/31/22 20:50 87 24 10/31/22 20:46 183/84 H 10/31/22 20:46 78 23 97 10/31/22 20:45 189/102 H 10/31/22 20:45 79 24 10/31/22 20:40 83 19 10/31/22 20:31 189/85 H 10/31/22 20:31 87 22 95 10/31/22 20:30 92 H 22 96 10/31/22 20:20 77 20 97 10/31/22 20:15 90 24 10/31/22 20:15 130/71 10/31/22 20:17 99 Room Air 10/31/22 20:14 84 20 130/71 91 Room Air Resident Activity Tracking Resident Involvement: Resident Care Provided Care Provided: Adult Hospital Medicine
--- NOTE | 2022-11-01 10:12 | Magnetic Resonance Report ---
MR brain wo con HISTORY: 67 years-old Female complete thrombosis of b/l carotids acute headache with vision changes COMPARISON: MRA of the head of same day, CTA head 10/31/2022 TECHNIQUE: Multiplanar multisequence MRI of the brain was obtained without the use of IV contrast. FINDINGS: There are approximately 8-10 subcentimeter foci of restricted diffusion within the centrum semiovale of the frontal parietal lobes, right greater than left. No acute or subacute territorial infarct. Chr onic lacunar infarcts of the left frontal lobe turner radiata and left basal ganglia. Involutional ch anges with mild to moderate T2/FLAIR hyperintense foci throughout the white matter. Mild motion degraded exam. Degenerative changes of the imaged cervical spine. Partially empty sella. There is no acute intracranial hemorrhage, midline shift, abnormal extra-axial collection, hydrocepha anna or intracranial mass. The study is motion degraded. The cerebral venous sinuses appear patent. Co nclusion of the internal carotid arteries. Mild polypoid mucosal thickening of the right sphenoid sin us with mild mucosal thickening of the ethmoid air cells. The mastoid air cells are clear. IMPRESSION: 1. Subcentimeter acute infarcts are noted within the centrum semiovale watershed distribution of the right greater than left frontal parietal lobes. 2. Chronic infarcts of the left frontal lobe turner radiata and left basal ganglia. 3. Involutional changes with chronic microvascular ischemic disease. 4. Occlusion of the internal carotid arteries, better characterized on the comparison CTA head study. ACT 112: Negative or not required by law. The above report was generated using voice recognition software. It may contain grammatical, syntax o r spelling errors. Electronically signed by: Earle Rankin M.D. 11/01/2022 10:10 AM
[2022-11-01] MEDS ORDERED: STAT IV Infusion **Titration per Protocol STA (10:59)
[2022-11-01] MEDS ORDERED: niCARdipine 25 MG in SODIUM CHLORIDE 0.9% 240 ML IV SCH (11:00)
--- NOTE | 2022-11-01 11:43 | Magnetic Resonance Report ---
MRA OF THE INTRACRANIAL CIRCULATION WITHOUT CONTRAST CLINICAL HISTORY: vision loss, complete thrombosis of b/l carotids COMPARISON STUDY: MRI of the brain December 02, 2021. Head CT/CTA of the head October 31, 2022. TECHNIQUE: Utilizing a 1.5 Samantha magnet and 3-D [id number] technique, unenhanced MRA of the intra cranial circulation was obtained. FINDINGS: Please note that the MRI of the brain will be reported separately. Study is mildly compromi sed by artifact. Occlusion of the bilateral cervical internal carotid arteries is noted, as shown on CTA. There is reconstitution of the right ICA at the level of the supraclinoid ICA. There is reconsti tution of left ICA at the level of the cavernous carotid. The bilateral M1, M2, A1 and A2 segments ar e patent. Posterior circulation is intact. There is no intracranial aneurysm. There are bilateral pos terior communicating arteries. Bilateral posterior cerebral arteries are patent. IMPRESSION: 1. Occlusion of the cervical bilateral internal carotid arteries with distal reconstitution, as shown on CTA of October 31, 2022. 2. No additional sites of vessel occlusion identified. 3. Exam mildly compromised by motion artifact. ACT 112: Negative or not required by law. Electronically signed by: Km Carey M.D. 11/01/2022 11:40 AM
--- NOTE | 2022-11-01 13:11 | Consultation ---
Date of Consultation November 01, 2022 Assessment & Plan (1) Carotid stent occlusion: Pt with recently placed R ICA stent via TCAR procedure on 10/10/22. This is now occluded as noted on neck imaging. She also has chronic L common and ICA occlusion, therefore, her cerebral circulation will be primarily through her verterbral arteries. Discussed with Dr Baker. There are no indications for vascular surgical intervention at this time. Recommend she remain on clopidogrel and ASA unless contraindicated. Will follow up with her in 6 months with imaging. Please call if needed. History of Present Illness Reason for Consultation: R ICA occlusion Attending Physician: Timur Lay DO History of Present Illness 67 yo f with hx of HTN, PAD, carotid stenosis s/p remote R CEA and subsequent R TCAR procedure on 10/10/22 d/t restenosis, anemia, COPD, s/p R AKA, CVA, admitted d/t occlusion of her R ICA stent, seen in consultation today. Pt has hx of chronic L ICA occlusion. Pt states she noted some "white spots" in her vision, which made it difficult to focus on her device or her television. States she was not able to read anything d/t blurry vision. Denies any NEWSOME, facial droop, confusion, unilateral extremity weakness, other complaints. She is a somewhat poor historian, but states she did not miss any doses of her cl opidogrel. Imaging demonstrates occlusion of her R common carotid through her ICA stent. Allergies Allergy/AdvReac Type Severity Reaction Status Date / Time No Known Allergies Allergy Mild Verified 10/31/22 21:16 Home Medications Medication Instructions Recorded Confirmed Type tramadol 50 mg tablet 50 mg PO Q6H PRN pain #60 tabs 09/06/22 10/31/22 Rx aspirin 81 mg tablet,delayed 81 mg PO QAM #90 tabs 10/25/22 10/31/22 Rx release carvedilol 3.125 mg tablet 3.125 mg PO BIDM #14 tabs 10/25/22 10/31/22 Rx clopidogrel 75 mg tablet 75 mg PO QAM #90 tabs 10/25/22 10/31/22 Rx rosuvastatin 20 mg tablet 20 mg PO QAM #21 tabs 10/25/22 10/31/22 Rx Patient History Medical History (Updated 11/01/22 @ 13:07 by Mony Shahid PA-C) CAD (coronary artery disease) Remote LAD stent, repeat cath 2004 with 20% in stent restenosis Carotid artery disease Neck CTA 07/10/22- Status post right carotid endarterectomy. Luminal irregularity and narrowing of the proximal to mid cervical right internal carotid artery with approximate 70% stenosis which has progressed since prior CTA. 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 Occlusion with distal reconstitution versus severe stenosis of the right external carotid artery. Carotid stent occlusion Chronic anemia COPD (chronic obstructive pulmonary disease) Per records, pt denies CVA (cerebral vascular accident) 04/2021, residual memory issues + right hand weakness, no neurologist GERD (gastroesophageal reflux disease) Controlled History of GI bleed Hypertension Ischemic ulcer of right foot Follows with [facility] Left renal mass Left side, concern for RCC Pt unaware PAD (peripheral artery disease) S/p stent to right LE (February 2021) Bilateral iliac artery stenosis Poor historian S/P CVA Rectal mass Per records, pt unaware Vasculopathy Ventricular asystolia 2020, follows with [facility] Surgical History 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 No issues noted per post-op anesthesia progress note. H/O exploratory laparotomy (01/22/21) Exploratory laparotomy, oversew perforated duodenal ulcer, abdominal washout. Dr. Craig 01/22/2021 H/O tubal ligation H/O vascular surgery 2 stents to right leg [facility] February 2021 History of colonoscopy History of esophagogastroduodenoscopy (EGD) (08/2021) gastritis w/ hemorrhage History of right-sided carotid endarterectomy (05/04/21) 30-40 sec chest compressions required during surgery for asystole - possible prior much shorter vagal episode in past as well S/P angioplasty (02/2021) distal SFA and [employer], RLE S/P peripheral artery angioplasty with stent placement (01/2021) RLE, iliac stent / SFA angioplasty S/P peripheral artery angioplasty with stent placement (11/2021) [employer]/Stent L SFA Gill teeth extracted Family History Mother , age 70 of lung cancer Diabetes Lung cancer Hypertension Father , age 52 of complications of vascular surgery. Lung cancer PAD (peripheral artery disease) Denies family history of Ovarian cancer Prostate cancer Myocardial infarction Breast cancer Colorectal cancer Social History Smoking Status: Former smoker Tobacco Type: Cigarettes Age Started Using Tobacco: 27; packs per day: 1; Cigarettes Per Day: 1 PPD x 30 years; Second Hand Exposure: No; Hx Alcohol Use: No (Previous heavy ETOH use- now occasional use) Hx Substance Use: No Preferred Language: Nauruan Communication Ability: Effective Visual Impairment: Limited Hearing Ability: Normal Eligibility Counselor Required: No Beliefs That Will Affect Care: [facility] marital status: Current Living Situation: Alone current occupational status: employed current occupation: [employer] How many Children do You have: 2 Feels Safe at Home: Yes Safety Concerns: Feels Safe At This Time Childhood Exposure to Second-Hand Smoke: Yes caffeine: Yes during the past year weight has: remained stable Dental Care, Regularly: No Physical Activity Frequency: Does not Exercise Physical Activity Frequency Comment: on feet at work all day Seatbelt Use: always Sunscreen Use: No Assistive Devices: None Review of Systems Review of Systems: All systems reviewed & are unremarkable except as noted in HPI & below Physical Exam Constitutional: WD/WN, vitals as above + thin and cooperative; not in distress ENMT: Ears: no hearing impairment Neck: trachea midline R supraclavicular incision C/D/I, no erythema, drainage or ecchymosis. Respiratory: normal respiratory effort, lungs clear to auscultation Auscultation: + diminished lung sounds Cardiovascular: Rate/Rhythm: regular rate and regular rhythm Vessels: femoral pulses present and radial pulses present; no carotid bruit and + abnormal peripheral pulses Extremities: normal capillary refill (LLE only, RLE AKA); no edema Gastrointestinal (Abdomen): Inspection/Auscultation: abdomen normal to inspection and normal bowel sounds Percussion/Palpation: abdomen soft; abdomen nontender Musculoskeletal: no cyanosis or clubbing, extremities motor strength 5/5 Extremities: + amputation noted (RLE AKA) Skin: no rashes, warm and dry Neurologic: moves all extremities and awake; no focal motor deficits and not confused Psychiatric: A+Ox3, euthymic affect Results & Data ([facility]) Vital Signs (Past 12 Hours) Vital Signs Pulse Pulse Resp BP BP Pulse Ox O2 Del Method 11/01/22 12:00 92 H 18 11/01/22 12:00 126/59 L 11/01/22 11:30 73 15 94 11/01/22 11:30 153/74 H 11/01/22 11:20 83 20 115/71 92 11/01/22 11:20 98 H 20 11/01/22 11:00 93 H 18 11/01/22 08:32 Room Air 11/01/22 08:17 99 H 20 213/99 H 95 Room Air 11/01/22 05:28 173/88 H 11/01/22 05:19 95 H 22 93 Room Air 11/01/22 05:14 Room Air 11/01/22 01:20 82 18 186/75 H 11/01/22 01:10 95 H 17 93 11/01/22 01:00 86 20 96 11/01/22 01:45 Room Air 11/01/22 01:27 94 H 22 96 Room Air
--- NOTE | 2022-11-01 14:54 | Electrocardiogram Report ---
Test Reason : Blood Pressure : / mmHG Vent. Rate : 077 BPM Atrial Rate : 077 BPM P-R Int : 148 ms QRS Dur : 096 ms QT Int : 392 ms P-R-T Axes : 052 054 092 degrees QTc Int : 443 ms Normal sinus rhythm Nonspecific ST and T wave abnormality Abnormal ECG When compared with ECG of 02-DEC-2021 14:21, Nonspecific T wave abnormality now evident in Lateral leads Confirmed by Kvng Baig ([id number]) on 11/01/2022 2:53:59 PM Referred By: REFERRED SELF Confirmed By:Kvng Baig
--- NOTE | 2022-11-01 21:37 | Billing Data ---
Date of Service November 01, 2022 Coding Level of Care Code 91838 SUB INP/OBS CARE
--- NOTE | 2022-11-02 07:29 | Hospitalist Progress Note ---
Date of Service November 02, 2022 Assessment & Plan (1) Carotid stent occlusion: Plan: 67-year-old female with past medical history of carotid artery stenosis s/p TCAR, CVA, PAD, COPD, and hypertension who is presenting today with vision loss. (1) Bilateral visual loss: Plan: - 6 days ago abrupt constant blurred vision still ongoing, L > R with on and off right eye pain. Patient able to read some objects close up, no areas of total vi yen loss or transient loss. No floaters. - Head/ neck CTA: complete thrombosis of the left common carotid artery and the left internal carotid artery to the level of the [place]. This is sim ilar to the 07/10/2022 examination. There is complete thrombosis of the right common carotid artery as well as the right internal carotid artery to the level of the [place]. This is new from 07/10/2022. - MRA = Occlusion of the cervical bilateral internal carotid arteries with distal reconstitution, as shown on CTA of October 31, 2022. No additional sites of vessel occlusion identified. Exam mildly compromised by motion artifact. - MRI brain = Subcentimeter acute infarcts are noted within the centrum semiovale watershed distribution of the right greater than left frontal parietal lobes. Chronic infarcts of the left frontal lobe turner radiata and left basal ganglia. Involutional changes with chronic microvascular ischemic disease. Occlusion of the internal carotid arteries, better characterized on the comparison CTA head study. - Vascular surgery consulted, appreciate their recommendations and assistance with this patient. no indications for intervention at this time - Hypercoag panel ordered, pending - Lipid panel in May all wnl. - Strongly encouraged tobacco cessation. - 1/5 vision noted worse in the morning consulted neuro: loss of vision possibly related to decreased perfusion in watershed areas of stroke, unfortunately no treatment options from neurologic standpoint at this time. 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 Aim for MAP 90-05 reached out to ophthomology, if this is central retinal artery occlusion there is no treatment, can check ESR CRP to fully rule out giant cell arteritis -ordered PT/OT evaluation (2) Carotid artery disease: Plan: - As above. - Continue ASA, Plavix, statin. (3) Recurrent stenosis of right carotid artery: Plan: - Recent TCAR on 10/10 with apparent restenosis. (4) PAD (peripheral artery disease): Plan: - Continue ASA, Plavix, statin. (5) History of CVA (cerebrovascular accident): Plan: - Continue ASA, Plavix, statin. (6) COPD (chronic obstructive pulmonary disease): Plan: - Continue home inhalers. (7) Hypertension: Plan: - Continue losartan, carvedilol. (8) Acute electrocardiogram changes: Plan: - EKG with some ST segment and T wave change sin lateral leads, patient not complaining of any chest pain/pressure/tightness, SOB, or palpitations. - Troponin wnl, and limited view echo as she just had one on 09/30/22--EF 60% with grade 1 diastolic dysfunction, moderate LVH, no significant valvular abnormalities. Plan - Admit to PCU. - SCDS, Lovenox for VTE pppx. Heparin for 48hr - Full Code. (2) Left carotid artery occlusion: (3) Acute electrocardiogram changes: (4) Bilateral visual loss: (5) Hypoxia: Admission and Anticipated Discharge Date Admission Date: October 31, 2022 Supervising Physician Co-Signing Physician Notes I personally examined the patient and verified all finney points of history and exam, discussed case, and agree with decision making with Dr Kitchen. vision bad both eyes blurry, neuro input appreciated. Later revisited and updated with son present. Vitals noted, in general she is awake and alert pleasant no distress. HEENT normocephalic atraumatic mucous membranes moist. Bilateral visual acuity extremely poorunable to read even at close distance with large print. Is able to see light, colors, and shapes loosely. Abrupt vision losssuspect central retinal artery occlusion by her history. Agree with neurology, there is probably also a degree of just overall cerebral hypoperfusion from her extensive cerebrovascular disease. Unfortunately very little can be donemed management, secondary risk reduction (emphasized smoke cessation), therapy, otherwise as above Subjective Patient seen at bedside tolerating breakfast well. States her vision is worse from yesterday, has a headache that started 10 minutes ago tylenol was not helping. Upon offering items to read, patient states she cannot read them with either eye or both eyes uncovered. Patient states the room is too dim, understands that the windows are open but would like a brighter light. Patient understands the room lights are still on, does notice a difference when the lights are turned off. Otherwise denies other pain weakness SOB. Review of Systems Review of Systems: All systems reviewed & are unremarkable except as noted in HPI & below Physical Exam Constitutional: well developed, well nourished, cooperative and comfortable Eyes: patient no longer to read enlarged text with or without glasses at distance or held closely to face, unable to distinguish numbers on phone screen up close with high contrast. Right eye able to correctly identify number of fingers in periphery, left eye unable to correctly identify number of fingers in periphery. ENMT: external ear and nose normal, oropharynx normal Neck: trachea midline, no thyromegaly Respiratory: Auscultation: + wheezes (diffuse) Cardiovascular: Rate/Rhythm: regular rate and regular rhythm Gastrointestinal (Abdomen): Inspection/Auscultation: abdomen normal to inspection; abdomen not distended Percussion/Palpation: abdomen soft; abdomen nontender Musculoskeletal: no cyanosis or clubbing, extremities motor strength 5/5 Skin: no rashes, warm and dry Neurologic: normal touch/pain/proprioception, CN's II-XI intact bilaterally and moves all extremities Results & Data Results & Data ([facility]) Vital Signs (Past 12 Hours) Vital Signs Temp Pulse Resp BP Pulse Ox O2 Del Method 11/02/22 03:31 36.7 C 114 H 19 120/80 91 Room Air 11/01/22 22:15 36.5 C 77 18 167/96 H 96 Room Air 11/01/22 20:16 36.9 C 85 18 134/78 96 Room Air Resident Activity Tracking Resident Involvement: Resident Care Provided Care Provided: Adult Hospital Medicine
[2022-11-02 07:33] LABS: Hematocrit (blood only) 32.2 % (34.1-44.9); Hemoglobin 9.8 g/dl (12.0-16.0); Mean Corpuscular Hemoglobin 22.8 pg (25.0-34.0); Mean Corpuscular Hgb Conc 30.4 g/dL (32.0-36.0); Mean Corpuscular Volume 75.1 fL (80.0-100.0); Mean Platelet Volume 8.9 fL (9.4-12.3); Platelet Count 298 K/uL (130-400); RDW Coefficient of Variation 19.7 % (11.5-14.5); RDW Standard Deviation 53.3 fL (36.4-46.3); Red Blood Count 4.29 M/uL (3.93-5.22); White Blood Count 4.34 K/ul (4.8-10.8)
[2022-11-02] MEDS: carvediloL 3.125 MG TAB PO SCH ×2 (07:48→17:33)
[2022-11-02] MEDS: LOSARTAN POTASSIUM 25 MG TAB PO SCH (07:49)
[2022-11-02] MEDS: CLOPIDOGREL BISULFATE 75 MG TAB PO SCH (07:49)
[2022-11-02] MEDS: ROSUVASTATIN CALCIUM 20 MG TAB PO SCH (07:49)
[2022-11-02] MEDS: ASPIRIN 81 MG ECTAB PO SCH (07:50)
[2022-11-02] MEDS: ACETAMINOPHEN 325 MG TAB PO PRN ×2 (07:54→22:56)
[2022-11-02 07:58] LABS: Calcium 8.7 mg/dl (8.5-10.1); Creatinine Clr Calc Pharmacy 87.3 ml/min; Est GFR (African American) 117.7 ml/min; Est GFR (Non-African American) 101.6 ml/min; Potassium 3.7 mmol/L (3.5-5.1)
[2022-11-02] MEDS: UMECLIDINIUM/VILANTEROL 62.5/25MCG 7 PUFFS/INHALER INH SCH (10:10)
[2022-11-02] MEDS ORDERED: Heparin IV Adult Wt-Based Low-Dose *NO* Bolus Protocol IV SCH (10:30)
[2022-11-02 10:32] LABS: Partial Thromboplastin Ratio 0.9; Partial Thromboplastin Time 24.5 Seconds (21.0-31.0); Prothrombin Time 10.8 Seconds (9.0-12.0)
[2022-11-02] MEDS: HEPARIN SODIUM/DEXTROSE 25,000 UNITS/500 ML BAG IV SCH (11:23)
--- NOTE | 2022-11-02 11:31 | Neurology Consultation ---
Date of Consultation November 02, 2022 Assessment & Plan (1) Acute CVA (cerebrovascular accident): (2) Left carotid artery occlusion: (3) Carotid stent occlusion: (4) Bilateral visual loss: Plan this patient had the acute onset of multiple, right greater than left cerebral watershed distribution strokes (Probably October 26), likely from decreased perfusion pressure from and occlusion of her right internal carotid artery. This has occurred since her revascularization procedure on the right October 10. She now has bilateral internal carotid artery occlusion from origin to the [place]. Fortunately, she has patent vertebral arteries and patent intracranial arterial circulation. The decreased perfusion has resulted in bilateral blurry vision without occipital infarct. She is already improving some with her vision. All of this happened despite being on aspirin and Plavix. She has multiple risk factors for stroke including chronic cigarette smoking ( which she continues to do ) and hypertension on the background of severe vascular disease. Although she does not have any obvious clotting disorder lab studies are pending. Echocardiogram did not show any risk factor for embolization. Recommendations: 1. I am not sure what can be done from a neurologic standpoint to help this person. a. Obviously, the finney to her care from a neurologic standpoint is to maintain cerebral perfusion pressure and avoid any additional cerebrovascular disease. Aim for a mean arterial pressure of 90-95. b. Maintain clopidogrel 75 mg daily. She has been on a combination of aspirin and clopidogrel chronically. Certainly the combination is not stopped her from occluding her right carotid artery and her bleeding risk is increased on both. Consider clopidogrel alone. c. A short course ( 24-48 hours) of IV heparin to see if this improves her vision is reasonable but I see no indication for long-term anticoagulation in this patient, at this time 2. awaiting laboratory studies for clotting disorders. 3. physical, occupational, and speech therapy consult are reasonable. Overall, I spent a total of 90 minutes with this case including review of records, review of MRI films, direct evaluation the patient at bedside, and discussion of the case with the patient and RN at bedside, and Dr. Lay including differential diagnosis and treatment options. History of Present Illness Reason for Consultation: patient is a 67-year-old, who I was asked to see at the request of Dr. Kitchen, for neurologic consultation regarding stroke and vascular issues. Requesting Physician: Dr. Kitchen Attending Physician: Timur Lay, DO History of Present Illness I 1st saw this patient on May 05, 2021 for an acute left basal ganglia lacunar stroke (likely from a brief asystole event during right carotid endarterectomy May 04). She had a history of hypertension, COPD and had a history of diffuse vascular pathology including coronary artery disease requiring stents and peripheral arterial disease. She was put on 81 mg aspirin and 75 mg clopidogrel at that time. CT angiography showed a 60% stenosis of the left internal carotid artery. After slight improvement and discharged on May 07, she was readmitted and was found to have An occluded left internal carotid artery and new stroke in the left centrum semiovale (of the left frontal lobe) with extension to the caudate and lentiform nuclei. There were a few additional smaller acute strokes in both frontal lobes. She has saw [facility] soon thereafter and they felt that there was no neurosurgical intervention warranted at that time. Because of her peripheral vascular disease and a non healing right foot wound, she underwent a right above knee amputation by Dr. Baker in October of 2021. Patient had an echocardiogram in September of 2022 which showed normal left ventricular size and function with an ejection fraction of 60%. There was some moderate left ventricular hypertrophy but no significant valvular abnormalities. Because of a recurrent right internal carotid artery stenosis ( 70%), the patient underwent a right trans carotid artery revascularization procedure (TCAR) on October 10. The patient came to the emergency room October 31 after having about 6 days of blurry vision bilaterally. She remains on 75 mg clopidogrel and 81 mg aspirin prior to admission. Blood pressure was 158/82 in the emergency room and she was afebrile. CBC and Chem profile were largely unremarkable. CT angiography of the head and neck revealed the chronic complete occlusion of the left common carotid artery and left internal carotid artery to the level of the [place]. This was unchanged. In addition there was complete thrombosis of the right common carotid artery as well as the right internal carotid artery to the level of the [place] which was new since her procedure in September. The vertebral arteries were patent although there was some mild stenosis at the origin of the left vertebral artery. Intracranial vessels are patent and anterior circulations supplied via the posterior communicating arteries bilaterally. MR angiography of the head showed no intracranial stenoses or vessel abnormal ities. MRI of the brain revealed small scattered acute infarcts in the centrum semiovale watershed distribution right greater than left side. There were old lacunar infarcts in the left frontal lobe, turner radiata and left basal ganglia. She had mild chronic microvascular ischemic disease and atrophy. I reviewed these films. Currently the patient has no headache or pain. She did have a headache early this morning but Tylenol resolved. She is not dizzy. She continues to have bilateral blurry vision but her vision is a little improve since admission. lipid profile showed triglycerides of 88 and total cholesterol 131. Allergies Allergy/AdvReac Type Severity Reaction Status Date / Time No Known Allergies Allergy Mild Verified 10/31/22 21:16 Home Medications Medication Instructions Recorded Confirmed Type tramadol 50 mg tablet 50 mg PO Q6H PRN pain #60 tabs 09/06/22 10/31/22 Rx aspirin 81 mg tablet,delayed 81 mg PO QAM #90 tabs 10/25/22 10/31/22 Rx release carvedilol 3.125 mg tablet 3.125 mg PO BIDM #14 tabs 10/25/22 10/31/22 Rx clopidogrel 75 mg tablet 75 mg PO QAM #90 tabs 10/25/22 10/31/22 Rx rosuvastatin 20 mg tablet 20 mg PO QAM #21 tabs 10/25/22 10/31/22 Rx Patient History Medical History CAD (coronary artery disease) Remote LAD stent, repeat cath 2004 with 20% in stent restenosis Carotid artery disease Neck CTA 07/10/22- Status post right carotid endarterectomy. Luminal irregularity and narrowing of the proximal to mid cervical right internal carotid artery with approximate 70% stenosis which has progressed since prior CTA. 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 Occlusion with distal reconstitution versus severe stenosis of the right external carotid artery. Carotid stent occlusion Chronic anemia COPD (chronic obstructive pulmonary disease) Per records, pt denies CVA (cerebral vascular accident) 04/2021, residual memory issues + right hand weakness, no neurologist GERD (gastroesophageal reflux disease) Controlled History of GI bleed Hypertension Ischemic ulcer of right foot Follows with [facility] Left renal mass Left side, concern for RCC Pt unaware PAD (peripheral artery disease) S/p stent to right LE (February 2021) Bilateral iliac artery stenosis Poor historian S/P CVA Rectal mass Per records, pt unaware Vasculopathy Ventricular asystolia 2020, follows with [facility] cardio Surgical History 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) Right AKA (11/16/21): LMA#3 + PNB at [facility]. No issues noted per post-op anesthesia progress note. H/O exploratory laparotomy (01/22/21) Exploratory laparotomy, oversew perforated duodenal ulcer, abdominal washout. Dr. 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 Lung cancer PAD (peripheral artery disease) Denies family history of Ovarian cancer Prostate cancer Myocardial infarction Breast cancer Colorectal cancer Social History Smoking Status: Current every day smoker Tobacco Type: Cigarettes Age Started Using Tobacco: 23; packs per day: 1; Cigarettes Per Day: 1 PPD x 35 years; Second Hand Exposure: No; Hx Alcohol Use: Yes (Previous heavy ETOH use- now occasional use) Alcohol type: beer and other Alcohol Intake Frequency: 4 or More x per/Week Alcohol Intake Frequency Comment: 2-3 beers daily or more Hx Substance Use: No Preferred Language: Mozambican Communication Ability: Effective Visual Impairment: Limited Hearing Ability: Normal Channel Rougher Required: No Beliefs That Will Affect Care: Mosque marital status: Current Living Situation: Spouse current occupational status: retired current occupation: [employer]- stopped work after [employer] How many Children do You have: 2 Feels Safe at Home: Yes Childhood Exposure to Second-Hand Smoke: Yes caffeine: Yes during the past year weight has: remained stable Dental Care, Regularly: No Physical Activity Frequency: Does not Exercise Physical Activity Frequency Comment: on feet at work all day Seatbelt Use: always Sunscreen Use: No Assistive Devices: None Review of Systems Constitutional: + fatigue and + weakness; no fever Eyes: + worsening vision; no diplopia and no eye pain Ear, Nose, Mouth, Throat: no ear pain, no tinnitus, no hearing loss, no dizziness, no snoring, no hoarseness and no dysphagia Respiratory: no cough and no dyspnea Cardiovascular: no chest pain, no palpitations and no lightheadedness Gastrointestinal: no abdominal pain, no nausea and no vomiting Genitourinary: no dysuria, no urinary frequency and no urinary incontinence Musculoskeletal: no back pain, no neck pain, no radicular pain, no joint pain and no myalgia Integumentary: no rash and no lesions Neurologic: + gait abnormality and + generalized weakness; no localized weakness, no tingling, no numbness, no tremor(s), no abnormal movements, no headache(s), no abnormal speech, no confusion and no memory loss Psychiatric: no depression, no irritability, no anxiety, no difficulty concentrating, no confusion and no hallucinations Endocrine: no fatigue and no flushing Hematologic / Lymphatic: no easy bleeding and no easy bruising Allergy / Immunological: no urticaria and no problem reported Exam (Neuro) Physical Exam: The patient is left-handed. The patient is awake, alert, and attentive. Speech is normal without any aphasia or dysarthria. The patient can name objects, repeat phrases, and has normal spontaneous speech. Mentation and thought processes are intact, with orientation to person, place and time, and normal fund of knowledge. Attention and concentration are normal. Mood and affect are normal and appropriate. General appearance and grooming are normal. Short and long-term memory are intact to conversation. Pupils are 4 mm bilaterally and reactive to light. Extraocular eye muscles are intact without nystagmus. Visual acuity and visual ludwig seem normal grossly to confrontation. There are no deficits to sensation in the face in all 3 distributions of the fifth cranial nerve bilaterally. Corneal reflexes are positive bilaterally. Facial strength and symmetry was normal bilaterally. Hearing seems normal bilaterally. Palate moves well without asymmetry. There is normal sternocleidomastoid and trapezius (shoulder shrug) strength bilaterally. Tongue is midline with good strength bilaterally. Neck has a full range of motion without discomfort. There are no cervical bruits bilaterally. There are no cranial or ocular bruits. Heart is without murmur. There is a regular rhythm and rate. Cervical, thoracic, and lumbar spine are nontender to palpation. Gait was not tested and stance sitting up in bed is reasonable With outstretched arms there is no drift. There are no resting, postural, or action tremors. There is no ataxia with finger to nose testing. There is good facility in the hands. No other abnormal involuntary movements are noted. Motor strength is 5/5 diffusely in the arms bilaterally including deltoids, biceps, triceps, brachioradialis, wrist flexors and extensors, casing splitter, and intrinsic hand muscles. Motor strength is 5/5 diffusely in the left lower extremity including hip flexors, quadriceps, hamstrings, gastrocnemius, tibialis anterior, tibialis posterior, and Peroneii muscles. hip flexor strength is reasonable in the right lower extremity and she has a right above-knee amputation. Toe extensors are normal and there is good bulk in the extensor digitorum brevis muscles bilaterally. The limbs have good tone without rigidity or spasticity. There is no atrophy noted in the muscles. Muscle bulk is normal, there is no tenderness to palpation, no myotonia to percussion, and no fasciculations seen. Sensory examination is intact to touch and pin throughout all 4 limbs diffusely. Reflexes are 1/4 in the biceps, triceps, and brachioradialis tendons bilaterally. Left quadriceps and Achilles tendon reflexes are absent. There is no clonus bilaterally. Toes are downgoing with plantar stimulation On the left there is no edema distally in the left leg Results & Data ([facility]) Vital Signs (Past 12 Hours) Vital Signs Temp Pulse Resp BP Pulse Ox O2 Del Method 11/02/22 08:10 36.7 C 86 20 107/69 90 Room Air 11/02/22 03:31 36.7 C 114 H 19 120/80 91 Room Air PG Care Time/CCT Total # of Minutes Spent Total Time Spent with Patient: Total time spent is greater than 50% in coordination of care (as documented) at patient's floor/unit and/or counseling patient: Coding Level of Care Code 76217 INT INP/OBS CARE MIN Diagnoses Acute CVA (cerebrovascular accident) I63.9 Left carotid artery occlusion I65.22 Carotid stent occlusion T82.898A Bilateral visual loss H54.3 Time Spent (min) 90 Comment add modifiers as able
[2022-11-02 18:10] LABS: Partial Thromboplastin Ratio 1.1
--- NOTE | 2022-11-02 18:17 | Billing Data ---
Date of Service November 02, 2022 Coding Level of Care Code 54919 SUB INP/OBS CARE MIN
[2022-11-02] MEDS ORDERED: HEPARIN SOD (PORCINE) 1000 UNIT/ML IV ONE (18:24)
[2022-11-02] MEDS ORDERED: HEPARIN IV BOLUS 2,000 UNITS in SYRINGE 0 ML IV ONE (19:00)
[2022-11-02] MEDS: NICOTINE 21 MG/24 HR TDSY TD SCH (20:50)
[2022-11-03 01:30] LABS: Partial Thromboplastin Ratio 1.9
[2022-11-03] MEDS: ACETAMINOPHEN 325 MG TAB PO PRN (03:14)
--- NOTE | 2022-11-03 07:12 | Hospitalist Progress Note ---
Date of Service November 03, 2022 Assessment & Plan (1) Carotid stent occlusion: Plan: 67-year-old female with past medical history of carotid artery stenosis s/p TCAR, CVA, PAD, COPD, and hypertension who is presenting today with vision loss. (1) Bilateral visual loss: Plan: - 6 days ago abrupt constant blurred vision still ongoing, L > R with on and off right eye pain. Patient able to read some objects close up, no areas of total vi yen loss or transient loss. No floaters. - Head/ neck CTA: complete thrombosis of the left common carotid artery and the left internal carotid artery to the level of [place]. This is sim ilar to the 07/10/2022 examination. There is complete thrombosis of the right common carotid artery as well as the right internal carotid artery to the level of [place]. This is new from 07/10/2022. - MRA = Occlusion of the cervical bilateral internal carotid arteries with distal reconstitution, as shown on CTA of October 31, 2022. No additional sites of vessel occlusion identified. Exam mildly compromised by motion artifact. - MRI brain = Subcentimeter acute infarcts are noted within the centrum semiovale watershed distribution of the right greater than left frontal parietal lobes. Chronic infarcts of the left frontal lobe turner radiata and left basal ganglia. Involutional changes with chronic microvascular ischemic disease. Occlusion of the internal carotid arteries, better characterized on the comparison CTA head study. - Vascular surgery consulted, appreciate their recommendations and assistance with this patient. no indications for intervention at this time - Hypercoag panel ordered, pending - Lipid panel in May all wnl. - Strongly encouraged tobacco cessation. - 1/5 vision noted worse in the morning consulted neuro: loss of vision possibly related to decreased perfusion in watershed areas of stroke, unfortunately no treatment options from neurologic standpoint at this time. May try heparin 24hr to see if this improves her vision, no need for half-way anticoagulation. Aim for MAP 90-05 reached out to ophthalmology, if this is central retinal artery occlusion there is no treatment, ESR CRP were normal -OT = consider rehab stay (2) Carotid artery disease: Plan: - As above. - Continue ASA, Plavix, statin. (3) Recurrent stenosis of right carotid artery: Plan: - Recent TCAR on 10/10 with apparent restenosis. (4) PAD (peripheral artery disease): Plan: - Continue ASA, Plavix, statin. (5) History of CVA (cerebrovascular accident): Plan: - Continue ASA, Plavix, statin. (6) COPD (chronic obstructive pulmonary disease): Plan: - Continue home inhalers. (7) Hypertension: Plan: - Continue losartan, carvedilol. (8) Acute electrocardiogram changes: Plan: - EKG with some ST segment and T wave change sin lateral leads, patient not complaining of any chest pain/pressure/tightness, SOB, or palpitations. - Troponin wnl, and limited view echo as she just had one on 09/30/22--EF 60% with grade 1 diastolic dysfunction, moderate LVH, no significant valvular abnormalities. Plan - Admit to PCU. - SCDS, Lovenox for VTE pppx. - Full Code. (2) Left carotid artery occlusion: (3) Acute electrocardiogram changes: (4) Bilateral visual loss: (5) Hypoxia: Admission and Anticipated Discharge Date Admission Date: October 31, 2022 Supervising Physician Co-Signing Physician Notes I personally examined the patient and verified all finney points of history and exam, discussed case, and agree with decision making with Dr Kitchen. vision about the same. willing to do rehab, hoping to go home. Vitals noted, in general she is awake and alert pleasant no distress. HEENT normocephalic atraumatic mucous membranes moist. visual acuity still poor. Abrupt vision losssuspect central retinal artery occlusion by her history. Agree with neurology, there is probably also a degree of just overall cerebral hypoperfusion from her extensive cerebrovascular disease. Unfortunately very little can be donemed management, secondary risk reduction (have emphasized smoke cessation), therapy, otherwise as above. working on dispo planning Subjective Patient seen at bedside, calm comfortable cooperative. She states it is more difficult coordinating utensils, reaching for cups due to her vision. Patient states her vision is not any better or worse than yesterday, still had a headache over her right eye and some dizziness. She denies nausea or SOB. Patient was made aware that her vision is unlikely to improve. Patient became more withdrawn, declined participation in vision testing. Review of Systems Review of Systems: All systems reviewed & are unremarkable except as noted in HPI & below Physical Exam Constitutional: well developed, well nourished, cooperative and comfortable ENMT: external ear and nose normal, oropharynx normal Neck: trachea midline, no thyromegaly Cardiovascular: Rate/Rhythm: regular rate and regular rhythm Gastrointestinal (Abdomen): Inspection/Auscultation: abdomen normal to inspection; abdomen not distended Percussion/Palpation: abdomen soft; abdomen nontender Musculoskeletal: no cyanosis or clubbing, extremities motor strength 5/5 Skin: no rashes, warm and dry Neurologic: normal touch/pain/proprioception, CN's II-XI intact bilaterally and moves all extremities Results & Data Results & Data ([facility]) Vital Signs (Past 12 Hours) Vital Signs Temp Pulse Pulse Resp BP Pulse Ox O2 Del Method 11/03/22 03:27 36.3 C L 76 16 113/70 95 Room Air 11/02/22 22:55 83 11/02/22 23:02 37 C 77 18 162/72 H 94 Room Air 11/02/22 20:00 Room Air Resident Activity Tracking Resident Involvement: Resident Care Provided Care Provided: Adult Hospital Medicine
[2022-11-03] MEDS: NICOTINE 21 MG/24 HR TDSY TD SCH (07:42)
[2022-11-03] MEDS: ROSUVASTATIN CALCIUM 20 MG TAB PO SCH (07:43)
[2022-11-03] MEDS: CLOPIDOGREL BISULFATE 75 MG TAB PO SCH (07:43)
[2022-11-03] MEDS: ASPIRIN 81 MG ECTAB PO SCH (07:43)
[2022-11-03] MEDS: carvediloL 3.125 MG TAB PO SCH ×2 (07:44→17:13)
[2022-11-03] MEDS: UMECLIDINIUM/VILANTEROL 62.5/25MCG 7 PUFFS/INHALER INH SCH (07:44)
[2022-11-03 08:07] LABS: Basophils # (auto) 0.07 K/uL (0-0.2); Basophils % (auto) 1.8 %; Eosinophils # (auto) 0.12 K/uL (0-0.50); Hematocrit (blood only) 32.7 % (34.1-44.9); Hemoglobin 9.8 g/dl (12.0-16.0); Lymphocytes # (auto) 1.32 K/uL (1.2-3.4); Lymphocytes % (auto) 33.2 %; Mean Corpuscular Hemoglobin 23.1 pg (25.0-34.0); Mean Corpuscular Volume 76.9 fL (80.0-100.0); Monocytes # (auto) 0.45 K/uL (0.24-0.82); Monocytes % (auto) 11.3 %; Neutrophils # (auto) 2.01 K/uL (1.4-6.5); Neutrophils % (auto) 50.7 %; Platelet Count 291 K/uL (130-400); RDW Coefficient of Variation 19.6 % (11.5-14.5); Red Blood Count 4.25 M/uL (3.93-5.22); White Blood Count 3.97 K/ul (4.8-10.8)
[2022-11-03 08:33] LABS: BUN Creatinine Ratio 38.9 (10-20); Calcium 8.6 mg/dl (8.5-10.1); Creatinine Clr Calc Pharmacy 80.7 ml/min; Est GFR (African American) 114.8 ml/min; Potassium 3.8 mmol/L (3.5-5.1)
[2022-11-03 08:48] LABS: Partial Thromboplastin Ratio 1.7; Prothrombin Time 10.7 Seconds (9.0-12.0)
[2022-11-03 09:02] LABS: Partial Thromboplastin Time 45.4 Seconds (21.0-31.0)
--- NOTE | 2022-11-03 09:33 | Neurology Progress Note ---
Date of Service November 03, 2022 Assessment & Plan (1) Acute CVA (cerebrovascular accident): (2) Left carotid artery occlusion: (3) Carotid stent occlusion: (4) Bilateral visual loss: Plan This patient had the acute onset of multiple, right greater than left, cerebral watershed distribution strokes (Probably October 26), likely from decreased perfusion pressure from an occlusion of her right internal carotid artery. This has occurred since her revascularization procedure on the right October 10. She now has bilateral internal carotid artery occlusion from origin to the [place]. Fortunately, she has patent vertebral arteries and patent intracranial arterial circulation. The decreased perfusion has resulted in bilateral blurry vision without occipital infarct. She still has significant blurry vision. All of this happened despite being on aspirin and Plavix. She has multiple risk factors for stroke including chronic cigarette smoking ( which she continues to do ) and hypertension, on the background of severe vascular disease. Although she does not have any obvious clotting disorder, lab studies are pending. Echocardiogram did not show any risk factor for embolization. Recommendations: 1. I have little to offer from a neurologic standpoint for neurologic symptom improvement. a. Obviously, the finney is to maintain cerebral perfusion pressure and avoid any additional cerebrovascular disease. Aim for a mean arterial pressure of 90-95. b. Maintain clopidogrel 75 mg daily. She has been on a combination of aspirin and clopidogrel chronically. Certainly the combination is not stopped her from occluding her right carotid artery and her bleeding risk is increased on both. Consider clopidogrel alone. c. A short course ( 24-48 hours) of IV heparin to see if this improves her vision is reasonable, but I see no indication for long-term anticoagulation in this patient 2. awaiting laboratory studies for clotting disorders. 3. physical, occupational, and speech therapy consult are reasonable. Overall, I spent a total of 35 minutes with this case including review of records, review of MRI films, direct evaluation the patient at bedside, and discussion of the case with the patient and RN at bedside, and Dr. Lay inc luding differential diagnosis and treatment options. Admission and Anticipated Discharge Date Admission Date: October 31, 2022 Subjective patient believes that her vision is a little bit worse today compared to yesterday. Blood pressure is 142/84 and she is afebrile. CBC shows rather significant anemia and Chem profile was unremarkable. She has no complaint of pain or headache. Results & Data ([facility]) Vital Signs (Past 12 Hours) Vital Signs Temp Pulse Pulse Resp BP Pulse Ox O2 Del Method 11/03/22 09:17 Room Air 11/03/22 07:42 36.4 C L 79 18 142/84 H 90 Room Air 11/03/22 03:27 36.3 C L 76 16 113/70 95 Room Air 11/02/22 22:55 83 11/02/22 23:02 37 C 77 18 162/72 H 94 Room Air Exam (Neuro) Physical Exam: She is awake and alert. She can see big objects and can count fingers in her vision bilaterally. Extraocular muscles are intact without nystagmus. There is no facial droop. Coordination seems normal in the arms. Strength is symmetrical in the arms. There are no abnormal involuntary movements. PG Care Time/CCT Total # of Minutes Spent Total Time Spent with Patient: Total time spent is greater than 50% in coordination of care (as documented) at patient's floor/unit and/or counseling patient: Coding Level of Care Code 67069 SUB INP/OBS CARE 2/35MIN Diagnoses Acute CVA (cerebrovascular accident) I63.9 Left carotid artery occlusion I65.22 Carotid stent occlusion T82.898A Bilateral visual loss H54.3 Time Spent (min) 35
[2022-11-03] MEDS: HEPARIN SODIUM/DEXTROSE 25,000 UNITS/500 ML BAG IV SCH (12:34)
--- NOTE | 2022-11-03 16:24 | Billing Data ---
Date of Service November 03, 2022 Coding Level of Care Code 60140 SUB INP/OBS CARE
[2022-11-04] MEDS: ACETAMINOPHEN 325 MG TAB PO PRN (05:07)
--- NOTE | 2022-11-04 08:19 | Hospitalist Progress Note ---
Date of Service November 04, 2022 Assessment & Plan (1) Carotid stent occlusion: Plan: 67-year-old female with past medical history of carotid artery stenosis s/p TCAR, CVA, PAD, COPD, and hypertension who is presenting today with vision loss. (1) Bilateral visual loss: Plan: - 6 days ago abrupt constant blurred vision still ongoing, L > R with on and off right eye pain. Patient able to read some objects close up, no areas of total vi yen loss or transient loss. No floaters. - Head/ neck CTA: complete thrombosis of the left common carotid artery and the left internal carotid artery to the level of the [place]. This is sim ilar to the 07/10/2022 examination. There is complete thrombosis of the right common carotid artery as well as the right internal carotid artery to the level of the [place]. This is new from 07/10/2022. - MRA = Occlusion of the cervical bilateral internal carotid arteries with distal reconstitution, as shown on CTA of October 31, 2022. No additional sites of vessel occlusion identified. Exam mildly compromised by motion artifact. - MRI brain = Subcentimeter acute infarcts are noted within the centrum semiovale watershed distribution of the right greater than left frontal parietal lobes. Chronic infarcts of the left frontal lobe turner radiata and left basal ganglia. Involutional changes with chronic microvascular ischemic disease. Occlusion of the internal carotid arteries, better characterized on the comparison CTA head study. - Vascular surgery consulted, appreciate their recommendations and assistance with this patient. no indications for intervention at this time - Hypercoag panel ordered, pending - Lipid panel in May all wnl. - Strongly encouraged tobacco cessation. - 1/5 vision noted worse in the morning consulted neuro: loss of vision possibly related to decreased perfusion in watershed areas of stroke, unfortunately no treatment options from neurologic standpoint at this time. May try heparin 24hr to see if this improves her vision, no need for usp anticoagulation. Aim for MAP 90-05 reached out to ophthalmology, if this is central retinal artery occlusion there is no treatment, ESR CRP were normal -OT = consider rehab stay (2) Carotid artery disease: Plan: - As above. - Continue ASA, Plavix, statin. (3) Recurrent stenosis of right carotid artery: Plan: - Recent TCAR on 10/10 with apparent restenosis. (4) PAD (peripheral artery disease): Plan: - Continue ASA, Plavix, statin. (5) History of CVA (cerebrovascular accident): Plan: - Continue ASA, Plavix, statin. (6) COPD (chronic obstructive pulmonary disease): Plan: - Continue home inhalers. (7) Hypertension: Plan: - Continue losartan, carvedilol. (8) Acute electrocardiogram changes: Plan: - EKG with some ST segment and T wave change sin lateral leads, patient not complaining of any chest pain/pressure/tightness, SOB, or palpitations. - Troponin wnl, and limited view echo as she just had one on 09/30/22--EF 60% with grade 1 diastolic dysfunction, moderate LVH, no significant valvular abnormalities. Plan - Admit to PCU. - SCDS, Lovenox for VTE pppx. - Full Code. (2) Left carotid artery occlusion: (3) Acute electrocardiogram changes: (4) Bilateral visual loss: (5) Hypoxia: Admission and Anticipated Discharge Date Admission Date: October 31, 2022 Results & Data Results & Data ([facility]) Vital Signs (Past 12 Hours) Vital Signs Temp Pulse Pulse Resp BP Pulse Ox O2 Del Method 11/04/22 08:07 36.6 C 81 20 162/70 H 92 Room Air 11/04/22 02:44 36.6 C 74 18 131/77 95 Room Air 11/03/22 23:19 82 11/03/22 23:01 36.5 C 80 18 156/79 H 95 Room Air
[2022-11-04 08:21] LABS: Hematocrit (blood only) 30.8 % (34.1-44.9); Hemoglobin 9.4 g/dl (12.0-16.0); Mean Corpuscular Hemoglobin 22.8 pg (25.0-34.0); Mean Corpuscular Hgb Conc 30.5 g/dL (32.0-36.0); Mean Corpuscular Volume 74.6 fL (80.0-100.0); Mean Platelet Volume 8.9 fL (9.4-12.3); Platelet Count 292 K/uL (130-400); RDW Coefficient of Variation 19.4 % (11.5-14.5); RDW Standard Deviation 52.6 fL (36.4-46.3); Red Blood Count 4.13 M/uL (3.93-5.22); White Blood Count 6.41 K/ul (4.8-10.8)
[2022-11-04] MEDS: ROSUVASTATIN CALCIUM 20 MG TAB PO SCH (08:33)
[2022-11-04] MEDS: UMECLIDINIUM/VILANTEROL 62.5/25MCG 7 PUFFS/INHALER INH SCH (08:33)
[2022-11-04] MEDS: ASPIRIN 81 MG ECTAB PO SCH (08:33)
[2022-11-04] MEDS: carvediloL 3.125 MG TAB PO SCH (08:33)
[2022-11-04] MEDS: LOSARTAN POTASSIUM 25 MG TAB PO SCH (08:33)
[2022-11-04] MEDS: CLOPIDOGREL BISULFATE 75 MG TAB PO SCH (08:34)
[2022-11-04] MEDS: NICOTINE 21 MG/24 HR TDSY TD SCH (08:34)
[2022-11-04 08:40] LABS: Calcium 8.5 mg/dl (8.5-10.1); Creatinine Clr Calc Pharmacy 87.1 ml/min; Est GFR (African American) 117.7 ml/min; Est GFR (Non-African American) 101.6 ml/min
[2022-11-04 08:51] LABS: Prothrombin Time 10.4 Seconds (9.0-12.0)
--- NOTE | 2022-11-04 13:18 | Discharge Summary ---
Date of Service November 04, 2022 Admission HPI Per Admitting Provider Daniela Renee is a 67-year-old female with past medical history of carotid artery stenosis s/p TCAR, CVA, PAD, COPD, and hypertension who is presenting today with vision loss. For 6 days she has had blurry vision in both eyes, noting she cannot read face because the screen just looks like a large white screen without any letters, cannot read time on her cell phone but can see well enough to identify large, general objects and read some things if the font is big enough. She has had MOUTH: Mucous membranes moist, no lesions, tongue and gums appear normal. Pain behind her right eye, actually notices the vision is more blurred in her left eye than her right. Is been constant, without any visual field cuts or floaters. She did not have any speech difficulties, focal weakness, numbness, tingling. She has been compliant with all her medications except for carvedilol, which she only takes once a day instead of twice a day as prescribed because it makes her sleepy. She was admitted 10/10-10/13 for TCAR of her right carotid artery, without any complications besides episodes of hypoxemia thought to be related to poor oximeter readings 2/2 PAD rather than true hypoxia as forehead probe gave readings in high 90s on room air. Head/neck CTA shows complete thrombosis of the left common carotid artery and the left internal carotid artery to the level of the [place]. This is similar to the 07/10/2022 examination. There is complete thrombosis of the right common carotid artery as well as the right internal carotid artery to the level of the [place]. This is new from 07/10/2022. The vertebral arteries are patent bilaterally. There is mild to moderate stenosis at the origin of the left vertebral artery. The remaining intracranial vessels are patent. The anterior circulation is supplied via bilateral posterior communicating arteries. Case was discussed with vascular surgery who recommended admission for further workup and continuing patient on Plavix + aspirin. Admission Exam Per Admitting Provider General: awake, alert, no apparent distress Head: Normocephalic, atraumatic ENT: PERRL, EOMI, no pharyngeal exudate, mucous membranes moist Chest: Clear to auscultation, on room air, no adventitious breath sounds Cardiac: Regular rate and rhythm, no murmur, no JVD, normal peripheral pulses, good capillary refill Abdominal: NABS x 4 quadrants, soft, nontender to palpation, no rebound, guarding or tenderness Extremities: Normal inspection, no peripheral edema or erythema, calfs nontender to palpation Psych: Normal mood and affect Neuro: AAO x 3, strength intact bilaterally and rated 5/5, no motor deficits, speech is clear, no peripheral sensory deficits Skin: no rash or erythema Eyes: normal visual ludwig by confrontation, PERRL, normal accommodation, EOM intact bilaterally and reactive pupils; no scleral abnormality, no position abnormality, pupils not irregular, normal pupil size, no EOM movement deficit, no nystagmus and no photophobia Principal Diagnosis b/l loss of vision Discharge Exam Constitutional: well developed, well nourished, cooperative and comfortable Eyes: patient no longer to read enlarged text with or without glasses at distance or held closely to face, unable to distinguish numbers on phone screen up close with high contrast. Right eye able to correctly identify number of fingers in periphery, left eye unable to correctly identify number of fingers in periphery. ENMT: external ear and nose normal, oropharynx normal Neck: trachea midline, no thyromegaly Respiratory: Auscultation: cta b/l Cardiovascular: Rate/Rhythm: regular rate and regular rhythm Gastrointestinal (Abdomen): Inspection/Auscultation: abdomen normal to inspection; abdomen not distended Percussion/Palpation: abdomen soft; abdomen nontender Musculoskeletal: no cyanosis or clubbing, extremities motor strength 5/5 Skin: no rashes, warm and dry Neurologic: normal touch/pain/proprioception, CN's II-XI intact bilaterally and moves all extremities Discharge Data Allergies Allergy/AdvReac Type Severity Reaction Status Date / Time No Known Allergies Allergy Mild Verified 10/31/22 21:16 Consultations 10/31/22 20:11 ED Decision to Admit Stat 11/01/22 00:21 Consult Vascular Surgery Routine 11/02/22 09:42 Consult Neurology Routine 11/04/22 10:57 Consult KJG roller checker Routine Ordered Studies 10/31/22 16:26 CTA head wo/w [CT angio head wo/w] Stat CTA neck with con [CT angio neck with con] Stat 11/01/22 00:00 MR angio head wo con Routine MR brain wo con Routine Hospital Course (1) Carotid stent occlusion: 67-year-old female with past medical history of carotid artery stenosis s/p TCAR, CVA, PAD, COPD, and hypertension who is presenting today with vision loss. (1) Bilateral visual loss: Plan: - 6 days ago abrupt constant blurred vision still ongoing, L > R with on and off right eye pain. Patient able to read some objects close up, no areas of total vision loss or transient loss. No floaters. - Head/ neck CTA: complete thrombosis of the left common carotid artery and the left internal carotid artery to the level of the [place]. This is similar to the 07/10/2022 examination. There is complete thrombosis of the right common carotid artery as well as the right internal carotid artery to the level of the [place]. This is new from 07/10/2022. - MRA =Occlusion of the cervical bilateral internal carotid arteries with distal reconstitution, as shown on CTA of October 31, 2022. No additional sites of vessel occlusion identified. Exam mildly compromised by motion artifact. - MRI brain = Subcentimeter acute infarcts are noted within the centrum semiovale watershed distribution of the right greater than left frontal parietal lobes. Chronic infarcts of the left frontal lobe turner radiata and left basal ganglia. Involutional changes with chronic microvascular ischemic disease. Occlusion of the internal carotid arteries, better characterized on the comparison CTA head study. - Vascular surgery consulted = no indications for intervention at this time - Hypercoag panel ordered, pending - Lipid panel in May all wnl. - Strongly encouraged tobacco cessation. - 1/5 vision noted worse in the morning consulted neuro: loss of vision possibly related to decreased perfusion in watershed areas of stroke, unfortunately no treatment options from neurologic standpoint at this time. No need for [facility] anticoagulation. Aim for MAP 90- 05 reached out to ophthalmology, if this is central retinal artery occlusion there is no treatment, ESR CRP were normal -tried 24hr heprain to see if improvement in vision, unfortunately not -Occupational therapy suggested inpatient rehab, however patient and prefer home. Will send home with home health. -recommend visit to ophthalmology after discharge to assess remaining vision (2) Carotid artery disease: Plan: - As above. - Continue ASA, Plavix, statin. (3) Recurrent stenosis of right carotid artery: Plan: - Recent TCAR on 10/10 with apparent restenosis. (4) PAD (peripheral artery disease): Plan: - Continue ASA, Plavix, statin. (5) History of CVA (cerebrovascular accident): Plan: - Continue ASA, Plavix, statin. (6) COPD (chronic obstructive pulmonary disease): Plan: - Continue home inhalers. (7) Hypertension: Plan: - Continue losartan, carvedilol. (8) Acute electrocardiogram changes: Plan: - EKG with some ST segment and T wave change sin lateral leads, patient not complaining of any chest pain/pressure/tightness, SOB, or palpitations. - Troponin wnl, and limited view echo as she just had one on 09/30/22--EF 60% with grade 1 diastolic dysfunction, moderate LVH, no significant valvular abnormalities. (2) Left carotid artery occlusion: (3) Acute electrocardiogram changes: (4) Bilateral visual loss: (5) Hypoxia: Total Time Total Time Spent Total Time Spent (In Minutes): <30 Discharge Plan Discharge Items Patient Disposition: Home - Home Health Services Reason For Visit: B/L VISION LOSS Discharge Diagnosis: b/l Visino Loss Activity: Per Instructions section Non-emergency contact: Primary Care Provider and [employer] Call non-emergency contact if: you have any medication questions, your symptoms worsen and your pain is concerning for you Follow-up/Referrals: Go Landeros CRNP [Primary Care Provider] - Jeffry Padgett DO [Physician] - Diet: Heart Healthy Addtl Attending Provider Instructions: You were admitted to the hospital for loss of vision. You were found to have completely blocked carotid arteries on both sides of your neck, the only blood flow to your brain is coming from the two blood vessels in the back of your neck. This created a stroke that reduced the vision of both your eyes. It is unlikely that your vision will improve further. Please check your blood pressure at home. If your blood pressure falls too low (ie. 100/70), your remaining blood vessels will have a harder time pumping blood to your brain, and you may get another stroke. If your blood pressure is low, do not take your Losartan at the next dose. A discharge summary will be sent to your primary care physician to ensure continuity of care. Please bring this discharge summary with you to your next office appointment so that your provider can review it at that time. Follow-up appointments: Make a follow-up appointment with your PCP within the next week. It is very important that you follow up with them shortly after discharge from the hospital. We will arrange a follow up appointment with Ophthalmology. Keep all your follow-up appointments as already scheduled. If you cannot make an appointment, notify your provider. Medications: Your medication list has been reviewed and reconciled upon discharge to ensure accuracy and continuity of care. An updated list of all your medications is included with your hospital discharge paperwork. Please review this list closely, and make note of any changes. * We sent a new medication called Losartan to your pharmacy. Take Losartan 12.5mg one tablet daily. Take your medications as instructed; do not skip a dose of your medicines. Make sure all of your doctors know every medicine you are taking (including [id number] medicines, vitamins, and supplements). Call your primary care provider before taking any new medicines (including yego-[id number] medicines, vitamins, and supplements), because some of these may interact with your current medications, or may make your symptoms worse. Tell your primary care provider if you cannot afford your medications. CONTACT YOUR PRIMARY CARE PROVIDER if you experience any of the following: Increased confusion or dizziness Difficulty swallowing Difficulty following your treatment plan, or difficulty taking medications CALL 911 OR GO TO THE EMERGENCY DEPARTMENT if you experience any of the following: Sudden, severe abdominal pain or nausea/vomiting Severe chest pain, or chest pain that radiates (moves) to your jaw or arm Sudden, severe shortness of breath or difficulty breathing Thank you for allowing us to participate in your care. Pending Studies at Discharge: No Stand-Alone Forms: My [facility] [employer], Smoking Cessation Medications and DC Order Prescriptions: New losartan 25 mg Tablet 12.5 mg PO QAM 30 Days Qty: 15 0RF Continued rosuvastatin 20 mg tablet 20 mg PO QAM Qty: 21 0RF tramadol 50 mg tablet 50 mg PO Q6H PRN (Reason: pain) Qty: 60 0RF aspirin 81 mg tablet,delayed release (DR/EC) 81 mg PO QAM Qty: 90 1RF carvedilol 3.125 mg tablet 3.125 mg PO BIDM Qty: 180 1RF Rx Instructions: must administer with a meal/food clopidogrel 75 mg tablet 75 mg PO QAM Qty: 90 1RF Discharge Orders: Discharge Order (Routine); Ordered 11/04/22 Ordered By: Ricarda Hill/Other Patient Handouts: Discharge Instructions for Stroke Admission Data Admit Date/Time: 10/31/22 20:14 Attending Provider: Timur Lay Admit Provider: Kenyon Miller Primary Care Provider: Go Landeros. Other Providers: Kenyon Miller ; Cash Baker ; Neftali Tam ; [facility] Other Interventions: Discharge Summary Assessment (RN) Last Done: 11/04/22 13:50 Supervising Physician Co-Signing Physician Notes I personally examined the patient and verified all finney points of history and exam, discussed case, and agree with decision making with Dr Kitchen. vision about the same. Would like to go home. Case management discussed with who feels that he can take care of her at home. Vitals noted, in general she is awake and alert pleasant no distress. HEENT normocephalic atraumatic mucous membranes moist. visual acuity still poor. Abrupt vision losssuspect central retinal artery occlusion by her history. Agree with neurology, there is probably also a degree of just overall cerebral hypoperfusion from her extensive cerebrovascular disease. Unfortunately very little can be donemed management, secondary risk reduction (have emphasized smoke cessation), outpatient therapy. Home. Outpatient follow-up with PCP and ophthalmology Resident Activity Tracking Resident Involvement: Resident Care Provided Care Provided: Adult Hospital Medicine
--- NOTE | 2022-11-04 18:48 | Billing Data ---
Date of Service November 04, 2022 Coding Level of Care Code HOSP INP/OBS DISCH 30 MIN/LESS
[2022-11-06 20:43] LABS: Factor 5 Mutation NEGATIVE
[2022-11-07 14:29] LABS: Anti Cardiolipin Ab IgG <2.0 GPL-U/mL; Anti Cardiolipin Ab IgM 6.6 MPL-U/mL; Anti-Thrombin III Activity 138 % normal (80-135); B2 Glycoprotein IgG <2.0 U/mL (<20.0); B2 Glycoprotein IgM 10.1 U/mL (<20.0); PTT LA Screen 31 sec (<=40); Protein S Functional(Activity) 86 % normal (60-140)
== END 2022-11-04 14:13 | disposition home health service (06) | DRG 314 ==
LOC: ED 14:34 → EDINP 20:14 → SUATTDRO 20:14 → 2S 11-01 00:22

== ENCOUNTER 2022-11-11 14:15 | Inpatient (IN) ==
[2022-11-11] MEDS ORDERED: OPTIRAY 320 500ml IV ONE (14:19)
--- NOTE | 2022-11-11 14:39 | Emergency Department Note ---
Impression & Plan Acute CVA (cerebrovascular accident), Left carotid artery occlusion, Carotid stent occlusion, Occult blood positive stool, Headache ED Provider Note Provider: Juan Lance MD DATE OF SERVICE: 11/11/2022 CHIEF COMPLAINT: Change in mental status, possible stroke HISTORY OF PRESENT ILLNESS: Patient is a 67-year-old gentleman history of CVA, carotid occlusions, COPD, hypertension presenting today via EMS. Patient evidently had the onset just before 130 at home of sudden onset of unrespons iveness. EMS report the patient was eating and then all of a sudden seemed pained and was not responding. They were concerned for some left-sided weakness and slurred speech and facial droop. She was less responsive for them in route. Upon arrival assessed at the entrance way and taken to CT as a stroke alert. Patient herself states she has a bit of a headache. She has some garbled speech but denies any other pain. States she is tingly all over her face but denies other significant numbness or weakness. Has been having some visual issues according to her but is difficult from her garbled speech if these are changing. Did discuss with her via phone as well. He reports the patient's had garbled speech actually for at least 3 days. Has been taking her medicines. Seemed pain with her right arm and then was not responding initially at home. He denies any new trauma for her. PAST MEDICAL HISTORY: As noted above MEDICATIONS: Reviewed home medications include aspirin & Plavix SOCIAL HISTORY: Resides at home with PHYSICAL EXAM: GENERAL: alert and oriented in no acute distress on stretcher but fatigued Head: normocephalic and atraumatic EYES: No injection, discharge or icterus. NECK: Trachea midline. Supple. ENT: Mucous membranes pink and slightly dry. Pharynx without erythema or exudate. LUNGS: Airway patent. No retractions. Breath sounds clear with good air entry bilaterally anteriorly HEART: Regular rate and rhythm. No chest wall tenderness ABDOMEN: Soft and non-tender, without guarding or rebound. SKIN: Acyanotic, warm, dry, without rashes EXTREMITIES: Right AKA without swelling or erythema. Left lower extremity without significant swelling or tenderness. 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 NEUROLOGICAL: Some slurred speech with a slight right facial droop. No significant pronator drift. Fairly good [id number]. Decent strength symmetrically in the upper extremities. Able to lift the right stump from an AKA as well as the left leg above and not significantly drop. States tingling of the bilateral face to touch symmetric. EK beats per minute normal sinus rhythm without PVC or PAC. No acute ST segment elevation but some lateral and inferior ST depression. QTc 474. Compared to previous from October 31 of this year similar although may be slightly more pronounced ST depression laterally. CONTINUOUS CARDIAC MONITORING: was ordered and showed a heart rate of 60s-80s bpm in normal sinus rhythm Patient's laboratory studies and imaging reviewed. Differential includes Infection, dehydration, metabolic abnormality, hypo/hyperglycemia, electrolyte disturbance, anemia, hypoxia, cardiac sources, gastrointestinal/GI bleed, intracerebral event, toxicologic, neurologic, as well as other pathologies. IMPRESSION/MEDICAL DECISION MAKING: Patient is stroke alert and immediately taken to CT. No evidence of bleed. Discussed with telestroke neurologist who evaluated the patient as well. Initially thought within the window but then discussed with and it sounds like her garbled speech has been present for several days (at least 3 according to ). Today the issue is more of a sudden onset of change in responsiveness. Is responsive here. Had a recent CVA. Reportedly has been taking aspirin and Plavix as prescribed. Patient with Hemoccult positive stools incidentally noted but denies abdominal pain. Does not seem to have significant weakness in the extremities to an extreme maybe a little bit of right facial droop and certainly some garbled speech is noted. Do not feel thrombolytics would be indicated given this. Telestroke neurologist agrees. Updated patient's via phone. Telestroke recommended IV fluids and magnesium. Question of this may be metabolic as she appears may be a little en cephalopathic. VBG with minimal hypercarbia. Borderline oxygen requirement here. COVID-negative. CT brain does question a new hypodensity in the right insula. Will bring into the hospital for further care. Telestroke recommends consideration of a single antiplatelet agent given the Hemoccult positive stool. Benign abdomen otherwise. Hemoglobin not significant different than recent. Doubt severe GI bleed. Discussed with the hospitalist. DIAGNOSIS: Slurred speech, CVA, Hemoccult positive stools DISPOSITION: Hospitalist will evaluate. updated via phone. Past Med/Surg History Medical History CAD (coronary artery disease) Remote LAD stent, repeat cath 2004 with 20% in stent restenosis Carotid artery disease Neck CTA 07/10/22- Status post right carotid endarterectomy. Luminal irregularity and narrowing of the proximal to mid cervical right internal c arotid artery with approximate 70% stenosis which has progressed since prior CTA. 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 Occlusion with distal reconstitution versus severe stenosis of the right external carotid artery. Carotid stent occlusion Chronic anemia COPD (chronic obstructive pulmonary disease) Per records, pt denies CVA (cerebral vascular accident) 04/2021, residual memory issues + right hand weakness, no neurologist GERD (gastroesophageal reflux disease) Controlled History of GI bleed Hypertension Ischemic ulcer of right foot Follows with [facility] Left renal mass Left side, concern for RCC Pt unaware PAD (peripheral artery disease) S/p stent to right LE (February 2021) Bilateral iliac artery stenosis Poor historian S/P CVA Rectal mass Per records, pt unaware Vasculopathy Ventricular asystolia 2020, follows with [facility] cardio Surgical History 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 No issues noted per post-op anesthesia progress note. H/O exploratory laparotomy (01/22/21) Exploratory laparotomy, oversew perforated duodenal ulcer, abdominal washout. Dr. Craig 01/22/2021 H/O tubal ligation H/O vascular surgery 2 stents to right leg [facility] February 2021 History of colonoscopy History of esophagogastroduodenoscopy (EGD) (08/2021) gastritis w/ hemorrhage History of right-sided carotid endarterectomy (05/04/21) 30-40 sec chest compressions required during surgery for asystole - possible prior much shorter vagal episode in past as well S/P angioplasty (02/2021) distal SFA and [employer], RLE S/P peripheral artery angioplasty with stent placement (01/2021) RLE, iliac stent / SFA angioplasty S/P peripheral artery angioplasty with stent placement (11/2021) [employer]/Stent L SFA Status post bilateral carotid endarterectomy [place] teeth extracted Family History Mother , age 70 of lung cancer Diabetes Lung cancer Hypertension Father , age 52 of complications of vascular surgery. Lung cancer PAD (peripheral artery disease) Denies family history of Ovarian cancer Prostate cancer Myocardial infarction Breast cancer Colorectal cancer Social History Smoking Status: Current every day smoker Tobacco Type: Cigarettes Age Started Using Tobacco: 23; packs per day: 1; Cigarettes Per Day: 1 PPD x 35 years; Second Hand Exposure: No; Hx Alcohol Use: Yes Alcohol type: beer Alcohol Intake Frequency: 4 or More x per/Week Alcohol Intake Frequency Comment: 2-3 beers daily or more Hx Substance Use: No Preferred Language: Latvian Communication Ability: Impaired Visual Impairment: Limited Hearing Ability: Normal Barrel Drum Cutter Required: No Beliefs That Will Affect Care: None marital status: Current Living Situation: Spouse current occupational status: retired 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 How many Children do You have: 2 Other Information That Helps Us Care for You: No Feels Safe at Home: Yes Safety Concerns: Feels Safe At This Time Childhood Exposure to Second-Hand Smoke: Yes caffeine: Yes during the past year weight has: remained stable Dental Care, Regularly: No Physical Activity Frequency: Does not Exercise Physical Activity Frequency Comment: on feet at work all day Seatbelt Use: always Sunscreen Use: No Assistive Devices: Wheelchair Allergies Allergies Allergy/AdvReac Type Severity Reaction Status Date / Time No Known Allergies Allergy Mild Verified 11/11/22 16:44 Home Meds Previous Rx's Medication Instructions Recorded tramadol 50 mg tablet 50 mg PO Q6H PRN pain #60 tabs 11/02/22 aspirin 81 mg tablet,delayed 81 mg PO QAM #90 tabs 11/09/22 release carvedilol 3.125 mg tablet 3.125 mg PO BIDM #180 tabs 11/09/22 clopidogrel 75 mg tablet 75 mg PO QAM #90 tabs 11/09/22 losartan 25 mg tablet 12.5 mg PO QAM #45 tabs 11/09/22 rosuvastatin 20 mg tablet 20 mg PO QAM #90 tabs 11/09/22 Results & Data (ED) Vital Signs Vital Signs - 24 hr 11/11/22 14:33 11/11/22 14:48 11/11/22 15:03 Temperature 36.6 C Temperature Source Rectal Pulse Rate 76 Pulse Rate [Finger] 65 62 Respiratory Rate 20 18 12 Blood Pressure 185/67 H Blood Pressure [Left Arm] 195/80 H 199/94 H Blood Pressure Mean 106 Blood Pressure Mean [Left Arm] 118 129 Pulse Oximetry 100 Oxygen Delivery Method Room Air Room Air Nasal Cannula Oxygen Flow Rate 2 Sepsis Recent Fever Within 48 Hours No Sepsis New/Unexplained Change in Mental Status No Sepsis Action Taken by Nursing No Action Required 11/11/22 15:18 Temperature Temperature Source Pulse Rate Pulse Rate [Finger] 65 Respiratory Rate 12 Blood Pressure Blood Pressure [Left Arm] 194/62 H Blood Pressure Mean Blood Pressure Mean [Left Arm] 106 Pulse Oximetry 99 Oxygen Delivery Method Nasal Cannula Oxygen Flow Rate 2 Sepsis Recent Fever Within 48 Hours Sepsis New/Unexplained Change in Mental Status Sepsis Action Taken by Nursing Laboratory Data 11/11/22 14:04 11/11/22 14:04 Lab Results 11/11/22 11/11/22 11/11/22 Range/Units 14:04 14:04 14:04 WBC 8.07 (4.8-10.8) K/ul RBC 3.87 L (3.93-5.22) M/uL Hgb 8.9 L (12.0-16.0) g/dl Hct 30.5 L (34.1-44.9) % MCV 78.8 L (80.0-100.0) fL MCH 23.0 L (25.0-34.0) pg MCHC 29.2 L (32.0-36.0) g/dL RDW Std Deviation 55.7 H (36.4-46.3) fL RDW Coeff of [place] 19.6 H (11.5-14.5) % Plt Count 372 (130-400) K/uL MPV 9.3 L (9.4-12.3) fL Immature Gran % (Auto) 0.2 % Neut % (Auto) 75.9 % Lymph % (Auto) 12.9 % [place] % (Auto) 8.6 % Eos % (Auto) 1.2 % Baso % (Auto) 1.2 % Neut # (Auto) 6.12 (1.4-6.5) K/uL Lymph # (Auto) 1.04 L (1.2-3.4) K/uL [place] # (Auto) 0.69 (0.24-0.82) K/uL Eos # (Auto) 0.10 (0-0.50) K/uL Baso # (Auto) 0.10 (0-0.2) K/uL Immature Gran # (Auto) 0.02 (0.00-0.02) K/uL PT 10.5 (9.0-12.0) Seconds INR 1.0 (0.9-1.1) APTT 21.7 (21.0-31.0) Seconds PTT Ratio 0.8 Sodium 137 (136-145) mmol/L Potassium 4.3 (3.5-5.1) mmol/L Chloride 104 (98-107) mmol/L Carbon Dioxide 25 (21-32) mmol/L Anion Gap 8 (3-11) BUN 19 (6-23) mg/dl Creatinine 0.60 (0.6-1.2) mg/dl Est Cr Clr Drug Dosing 73.9 ml/min Est GFR ( Amer) 110.9 ml/min Est GFR (Non-Af Amer) 95.7 ml/min BUN/Creatinine Ratio 31.7 H (10-20) Glucose 133 H (70-99(Fasting)) mg/dl POC Glucose (70-99) mg/dl Calcium 9.3 (8.5-10.1) mg/dl Magnesium 2.0 (1.7-2.4) mg/dl Total Bilirubin 0.4 (0.2-1.0) mg/dl AST 11 L (13-39) U/L ALT 8 (7-52) U/L Alkaline Phosphatase 115 H (34-104) U/L Troponin I High Sens 6.6 (0-14) pg/ml Total Protein 6.9 (6.0-8.3) gm/dl Albumin 3.9 (3.4-5.0) gm/dl Globulin 3.0 (2.5-4.0) gm/dl Albumin/Globulin Ratio 1.3 (0.9-2) TSH (0.300-4.500) uIu/ml Urine Color Urine Appearance (Clear) Urine pH (4.5-7.5) Ur Specific [place] (1.000-1.030) Urine Protein (Negative) Urine Glucose (UA) (Negative) Urine Ketones (Negative) Urine Blood (Negative) Urine Nitrite (Negative) Urine Bilirubin (Negative) Urine Urobilinogen (Negative) Ur Leukocyte Esterase (Negative) POC Stool Occult Blood (Negative) SARS-CoV-2, RNA, NAAT (NEGATIVE) Blood Type Antibody Screen 11/11/22 11/11/22 11/11/22 Range/Units 14:19 14:30 14:34 WBC (4.8-10.8) K/ul RBC (3.93-5.22) M/uL Hgb (12.0-16.0) g/dl Hct (34.1-44.9) % MCV (80.0-100.0) fL MCH (25.0-34.0) pg MCHC (32.0-36.0) g/dL RDW Std Deviation (36.4-46.3) fL RDW Coeff of [place] (11.5-14.5) % Plt Count (130-400) K/uL MPV (9.4-12.3) fL Immature Gran % (Auto) % Neut % (Auto) % Lymph % (Auto) % [place] % (Auto) % Eos % (Auto) % Baso % (Auto) % Neut # (Auto) (1.4-6.5) K/uL Lymph # (Auto) (1.2-3.4) K/uL [place] # (Auto) (0.24-0.82) K/uL Eos # (Auto) (0-0.50) K/uL Baso # (Auto) (0-0.2) K/uL Immature Gran # (Auto) (0.00-0.02) K/uL PT (9.0-12.0) Seconds INR (0.9-1.1) APTT (21.0-31.0) Seconds PTT Ratio Sodium (136-145) mmol/L Potassium (3.5-5.1) mmol/L Chloride (98-107) mmol/L Carbon Dioxide (21-32) mmol/L Anion Gap (3-11) BUN (6-23) mg/dl Creatinine (0.6-1.2) mg/dl Est Cr Clr Drug Dosing ml/min Est GFR ( Amer) ml/min Est GFR (Non-Af Amer) ml/min BUN/Creatinine Ratio (10-20) Glucose (70-99(Fasting)) mg/dl POC Glucose 120 H (70-99) mg/dl Calcium (8.5-10.1) mg/dl Magnesium (1.7-2.4) mg/dl Total Bilirubin (0.2-1.0) mg/dl AST (13-39) U/L ALT (7-52) U/L Alkaline Phosphatase (34-104) U/L Troponin I High Sens (0-14) pg/ml Total Protein (6.0-8.3) gm/dl Albumin (3.4-5.0) gm/dl Globulin (2.5-4.0) gm/dl Albumin/Globulin Ratio (0.9-2) TSH 2.921 (0.300-4.500) uIu/ml Urine Color Urine Appearance (Clear) Urine pH (4.5-7.5) Ur Specific [place] (1.000-1.030) Urine Protein (Negative) Urine Glucose (UA) (Negative) Urine Ketones (Negative) Urine Blood (Negative) Urine Nitrite (Negative) Urine Bilirubin (Negative) Urine Urobilinogen (Negative) Ur Leukocyte Esterase (Negative) POC Stool Occult Blood (Negative) SARS-CoV-2, RNA, NAAT (NEGATIVE) Blood Type O Negative Antibody Screen NEGATIVE 11/11/22 11/11/22 11/11/22 Range/Units 14:54 15:03 15:20 WBC (4.8-10.8) K/ul RBC (3.93-5.22) M/uL Hgb (12.0-16.0) g/dl Hct (34.1-44.9) % MCV (80.0-100.0) fL MCH (25.0-34.0) pg MCHC (32.0-36.0) g/dL RDW Std Deviation (36.4-46.3) fL RDW Coeff of [place] (11.5-14.5) % Plt Count (130-400) K/uL MPV (9.4-12.3) fL Immature Gran % (Auto) % Neut % (Auto) % Lymph % (Auto) % [place] % (Auto) % Eos % (Auto) % Baso % (Auto) % Neut # (Auto) (1.4-6.5) K/uL Lymph # (Auto) (1.2-3.4) K/uL [place] # (Auto) (0.24-0.82) K/uL Eos # (Auto) (0-0.50) K/uL Baso # (Auto) (0-0.2) K/uL Immature Gran # (Auto) (0.00-0.02) K/uL PT (9.0-12.0) Seconds INR (0.9-1.1) APTT (21.0-31.0) Seconds PTT Ratio Sodium (136-145) mmol/L Potassium (3.5-5.1) mmol/L Chloride (98-107) mmol/L Carbon Dioxide (21-32) mmol/L Anion Gap (3-11) BUN (6-23) mg/dl Creatinine (0.6-1.2) mg/dl Est Cr Clr Drug Dosing ml/min Est GFR ( Amer) ml/min Est GFR (Non-Af Amer) ml/min BUN/Creatinine Ratio (10-20) Glucose (70-99(Fasting)) mg/dl POC Glucose (70-99) mg/dl Calcium (8.5-10.1) mg/dl Magnesium (1.7-2.4) mg/dl Total Bilirubin (0.2-1.0) mg/dl AST (13-39) U/L ALT (7-52) U/L Alkaline Phosphatase (34-104) U/L Troponin I High Sens (0-14) pg/ml Total Protein (6.0-8.3) gm/dl Albumin (3.4-5.0) gm/dl Globulin (2.5-4.0) gm/dl Albumin/Globulin Ratio (0.9-2) TSH (0.300-4.500) uIu/ml Urine Color Yellow Urine Appearance Clear (Clear) Urine pH 7.0 (4.5-7.5) Ur Specific [place] > 1.045 H (1.000-1.030) Urine Protein Negative (Negative) Urine Glucose (UA) Negative (Negative) Urine Ketones Negative (Negative) Urine Blood Negative (Negative) Urine Nitrite Negative (Negative) Urine Bilirubin Negative (Negative) Urine Urobilinogen Negative (Negative) Ur Leukocyte Esterase Negative (Negative) POC Stool Occult Blood Positive A (Negative) SARS-CoV-2, RNA, NAAT NEGATIVE (NEGATIVE) Blood Type Antibody Screen Administered Medications Lactated Ringer's (Lr) 1,000 mls @ 100 mls/hr IV .Q10H ALICIA Stop: 12/11/22 18:59 Last Admin: 11/11/22 19:38 Dose: 100 mls/hr Documented By: DUYEN Discontinued Medications Magnesium Sulfate/Dextrose (Magnesium Sulfate / D5w) 1 gm in 100 mls @ 200 mls/hr IV Q30M ALICIA Stop: 11/11/22 15:47 Last Infusion: 11/11/22 16:47 Dose: 0 mls/hr Documented By: Admin: 11/11/22 16:16 Dose: 200 mls/hr Documented By: Infusion: 11/11/22 16:15 Dose: 0 mls/hr Documented By: Admin: 11/11/22 15:16 Dose: 200 mls/hr Documented By: SHEMAR Sodium Chloride (Nss 1000ml) 500 mls @ 999 mls/hr IV .Q31M ONE Stop: 11/11/22 15:17 Last Infusion: 11/11/22 16:15 Dose: 0 mls/hr Documented By: Admin: 11/11/22 15:06 Dose: 999 mls/hr Documented By: SHEMAR Ioversol (Optiray 320 500ml) 120 ml IV ONCE ONE Stop: 11/11/22 14:20 Last Admin: 11/11/22 14:20 Dose: 120 ml Documented By: PAT Imaging Data Radiologist's Impression: Head CT 11/11/22 14:04 CT angio head w con, CT head/brain wo con, CT angio neck with con CLINICAL HISTORY: neuro deficit, acute stroke suspected TECHNIQUE: Contiguous axial CT images of the head were acquired from the base of the skull to the vertex without intravenous contrast administration. CT angiography of the head and neck was performed following intravenous administration of iodinated contrast. Coronal and sagittal MIPS were obtained from the axial data set and were submitted for review. Automated dose lowering techniques and/or adjustment according to patient size were utilized for this examination. All measurements were calculated based on NASCET criteria. CT DOSE: 1034.92 mGy.cm Comparison: Comparison is made to CTA head 10/31/2022 FINDINGS: CT head: Areas of decreased attenuation are present in the periventricular and subcortical white matter bilaterally consistent with small vessel ischemic disease. Generalized cerebral atrophy with commensurate enlargement of the ventricles, sulci, and cisterns is also present. Multiple lacunar infarcts are seen. In addition there is a new hypodensity in the insula which is new from prior exam. There is mass effect upon the right lateral ventricle which is similar to prior exam. Biapical emphysema is seen. CTA Neck: A 3 vessel aortic arch is shown. Again noted is bilateral common carotid artery occlusion as well as bilateral internal carotid artery occlusion to the level of the [place]. Mild narrowing at the origin of the left vertebral artery is seen. The vertebral arteries are codominant. CTA Head: The [place] is opacified likely due to collateral flow from the posterior circulation. There is no significant stenosis noted. IMPRESSION: 1. Interval development of a new hypodensity in the right compatible with new infarct. No hemorrhagic transformation is seen. 2. Redemonstration of complete thrombosis of the bilateral common and internal carotid arteries. 3. No occlusion, hemodynamically significant stenosis, aneurysm, dissection, or arteriovenous malformation in the major intracranial arteries. The anterior circulation is supplied by the communicating arteries from the posterior circulation. Assessment of stenosis of the internal carotid arteries is based on NASCET criteria. ACT 112: Negative or not required by law. Electronically signed by: Ezra Queen M.D. 11/11/2022 3:04 PM Head CTA 11/11/22 14:04 CT angio head w con, CT head/brain wo con, CT angio neck with con CLINICAL HISTORY: neuro deficit, acute stroke suspected TECHNIQUE: Contiguous axial CT images of the head were acquired from the base of the skull to the vertex without intravenous contrast administration. CT angiography of the head and neck was performed following intravenous administration of iodinated contrast. Coronal and sagittal MIPS were obtained from the axial data set and were submitted for review. Automated dose lowering techniques and/or adjustment according to patient size were utilized for this examination. All measurements were calculated based on NASCET criteria. CT DOSE: 1034.92 mGy.cm Comparison: Comparison is made to CTA head 10/31/2022 FINDINGS: CT head: Areas of decreased attenuation are present in the periventricular and subcortical white matter bilaterally consistent with small vessel ischemic disease. Generalized cerebral atrophy with commensurate enlargement of the ventricles, sulci, and cisterns is also present. Multiple lacunar infarcts are seen. In addition there is a new hypodensity in the insula which is new from prior exam. There is mass effect upon the right lateral ventricle which is similar to prior exam. Biapical emphysema is seen. CTA Neck: A 3 vessel aortic arch is shown. Again noted is bilateral common carotid artery occlusion as well as bilateral internal carotid artery occlusion to the level of the [place]. Mild narrowing at the origin of the left vertebral artery is seen. The vertebral arteries are codominant. CTA Head: The [place] is opacified likely due to collateral flow from the posterior circulation. There is no significant stenosis noted. IMPRESSION: 1. Interval development of a new hypodensity in the right compatible with new infarct. No hemorrhagic transformation is seen. 2. Redemonstration of complete thrombosis of the bilateral common and internal carotid arteries. 3. No occlusion, hemodynamically significant stenosis, aneurysm, dissection, or arteriovenous malformation in the major intracranial arteries. The anterior circulation is supplied by the communicating arteries from the posterior ci rculation. Assessment of stenosis of the internal carotid arteries is based on NASCET criteria. ACT 112: Negative or not required by law. Electronically signed by: Ezra Queen M.D. 11/11/2022 3:04 PM Neck CTA 11/11/22 14:04 CT angio head w con, CT head/brain wo con, CT angio neck with con CLINICAL HISTORY: neuro deficit, acute stroke suspected TECHNIQUE: Contiguous axial CT images of the head were acquired from the base of the skull to the vertex without intravenous contrast administration. CT angiography of the head and neck was performed following intravenous administration of iodinated contrast. Coronal and sagittal MIPS were obtained from the axial data set and were submitted for review. Automated dose lowering techniques and/or adjustment according to patient size were utilized for this examination. All measurements were calculated based on NASCET criteria. CT DOSE: 1034.92 mGy.cm Comparison: Comparison is made to CTA head 10/31/2022 FINDINGS: CT head: Areas of decreased attenuation are present in the periventricular and subcortical white matter bilaterally consistent with small vessel ischemic disease. Generalized cerebral atrophy with commensurate enlargement of the ventricles, sulci, and cisterns is also present. Multiple lacunar infarcts are seen. In addition there is a new hypodensity in the insula which is new from prior exam. There is mass effect upon the right lateral ventricle which is similar to prior exam. Biapical emphysema is seen. CTA Neck: A 3 vessel aortic arch is shown. Again noted is bilateral common carotid artery occlusion as well as bilateral internal carotid artery occlusion to the level of the [place]. Mild narrowing at the origin of the left vertebral artery is seen. The vertebral arteries are codominant. CTA Head: The [place] is opacified likely due to collateral flow from the posterior circulation. There is no significant stenosis noted. IMPRESSION: 1. Interval development of a new hypodensity in the right compatible with new infarct. No hemorrhagic transformation is seen. 2. Redemonstration of complete thrombosis of the bilateral common and internal carotid arteries. 3. No occlusion, hemodynamically significant stenosis, aneurysm, dissection, or arteriovenous malformation in the major intracranial arteries. The anterior circulation is supplied by the communicating arteries from the posterior circulation. Assessment of stenosis of the internal carotid arteries is based on NASCET criteria. ACT 112: Negative or not required by law. Electronically signed by: Ezra Queen M.D. 11/11/2022 3:04 PM Discharge Plan Visit Data Chief Complaint: Stroke Alert ED Provider: Juan Lance Discharge Problem: Acute CVA (cerebrovascular accident), Left carotid artery occlusion, Carotid stent occlusion, Occult blood positive stool, Headache Patient Disposition: Admitted As Inpatient Discharge Instructions Interventions: ED Discharge Assessment Last Done: 11/11/22 18:31
[2022-11-11] MEDS ORDERED: SODIUM CHLORIDE 0.9% 1000ML 500 ML IV ONE (14:47)
--- NOTE | 2022-11-11 14:52 | History & Physical Report ---
Date of Service November 11, 2022 History of Present Illness Chief Complaint: Stroke alert Primary Care Provider: LAKSHMI Garza Allergies Allergy/AdvReac Type Severity Reaction Status Date / Time No Known Allergies Allergy Mild Verified 10/31/22 21:16 Home Medications Medication Instructions Recorded Confirmed Type tramadol 50 mg tablet 50 mg PO Q6H PRN pain #60 tabs 11/02/22 Rx aspirin 81 mg tablet,delayed 81 mg PO QAM #90 tabs 11/09/22 11/09/22 Rx release carvedilol 3.125 mg tablet 3.125 mg PO BIDM #180 tabs 11/09/22 11/09/22 Rx clopidogrel 75 mg tablet 75 mg PO QAM #90 tabs 11/09/22 11/09/22 Rx losartan 25 mg tablet 12.5 mg PO QAM #45 tabs 11/09/22 11/09/22 Rx rosuvastatin 20 mg tablet 20 mg PO QAM #90 tabs 11/09/22 11/09/22 Rx Past Med/Surg History Medical History CAD (coronary artery disease) Remote LAD stent, repeat cath 2004 with 20% in stent restenosis Carotid artery disease Neck CTA 07/10/22- Status post right carotid endarterectomy. Luminal irregularity and narrowing of the proximal to mid cervical right internal carotid artery with approximate 70% stenosis which has progressed since prior CTA. 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 Occlusion with distal reconstitution versus severe stenosis of the right external carotid artery. Carotid stent occlusion Chronic anemia COPD (chronic obstructive pulmonary disease) Per records, pt denies CVA (cerebral vascular accident) 04/2021, residual memory issues + right hand weakness, no neurologist GERD (gastroesophageal reflux disease) Controlled History of GI bleed Hypertension Ischemic ulcer of right foot Follows with [facility] Left renal mass Left side, concern for RCC Pt unaware PAD (peripheral artery disease) S/p stent to right LE (February 2021) Bilateral iliac artery stenosis Poor historian S/P CVA Rectal mass Per records, pt unaware Vasculopathy Ventricular asystolia 2020, follows with [facility] cardio Surgical History 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) Right AKA (11/16/21): LMA#3 + PNB at [facility]. No issues noted per post-op anesthesia progress note. H/O exploratory laparotomy (01/22/21) Exploratory laparotomy, oversew perforated duodenal ulcer, abdominal washout. Dr. Craig 01/22/2021 H/O tubal ligation H/O vascular surgery 2 stents to right leg [facility] February 2021 History of colonoscopy History of esophagogastroduodenoscopy (EGD) (08/2021) gastritis w/ hemorrhage History of right-sided carotid endarterectomy (05/04/21) 30-40 sec chest compressions required during surgery for asystole - possible prior much shorter vagal episode in past as well S/P angioplasty (02/2021) distal SFA and [employer], RLE S/P peripheral artery angioplasty with stent placement (01/2021) RLE, iliac stent / SFA angioplasty S/P peripheral artery angioplasty with stent placement (11/2021) [employer]/Stent L SFA Status post bilateral carotid endarterectomy [place] teeth extracted Family History Mother , age 70 of lung cancer Diabetes Lung cancer Hypertension Father , age 52 of complications of vascular surgery. Lung cancer PAD (peripheral artery disease) Denies family history of Ovarian cancer Prostate cancer Myocardial infarction Breast cancer Colorectal cancer Social History Smoking Status: Current every day smoker Tobacco Type: Cigarettes Age Started Using Tobacco: 23; packs per day: 1; Cigarettes Per Day: 1 PPD x 35 years; Second Hand Exposure: No; Hx Alcohol Use: Yes (Previous heavy ETOH use- now occasional use) Alcohol type: beer and other Alcohol Intake Frequency: 4 or More x per/Week Alcohol Intake Frequency Comment: 2-3 beers daily or more Hx Substance Use: No Preferred Language: Lao Communication Ability: Effective Visual Impairment: Limited Hearing Ability: Normal Fitness Studies Teacher Required: No Beliefs That Will Affect Care: Faith marital status: Current Living Situation: Spouse current occupational status: retired current occupation: [employer]- stopped work after AKA How many Children do You have: 2 Feels Safe at Home: Yes Childhood Exposure to Second-Hand Smoke: Yes caffeine: Yes during the past year weight has: remained stable Dental Care, Regularly: No Physical Activity Frequency: Does not Exercise Physical Activity Frequency Comment: on feet at work all day Seatbelt Use: always Sunscreen Use: No Assistive Devices: None Results & Data Results & Data ([facility]) Vital Signs (Past 12 Hours) Vital Signs Temp Pulse Pulse Resp BP BP O2 Del Method 11/11/22 14:48 65 18 195/80 H Room Air 11/11/22 14:33 36.6 C 76 20 185/67 H Room Air PG Care Time/CCT Total # of Minutes Spent Total Time Spent with Patient: Total time spent is greater than 50% in coordination of care (as documented) at patient's floor/unit and/or counseling patient: Coding
[2022-11-11 14:57] LABS: Basophils % (auto) 1.2 %; Eosinophils % (auto) 1.2 %; Hematocrit (blood only) 30.5 % (34.1-44.9); Hemoglobin 8.9 g/dl (12.0-16.0); Immature Granulocytes # (auto) 0.02 K/uL (0.00-0.02); Immature Granulocytes % (auto) 0.2 %; Lymphocytes # (auto) 1.04 K/uL (1.2-3.4); Lymphocytes % (auto) 12.9 %; Mean Corpuscular Hgb Conc 29.2 g/dL (32.0-36.0); Mean Corpuscular Volume 78.8 fL (80.0-100.0); Mean Platelet Volume 9.3 fL (9.4-12.3); Monocytes # (auto) 0.69 K/uL (0.24-0.82); Monocytes % (auto) 8.6 %; Neutrophils # (auto) 6.12 K/uL (1.4-6.5); Neutrophils % (auto) 75.9 %; Platelet Count 372 K/uL (130-400); RDW Coefficient of Variation 19.6 % (11.5-14.5); RDW Standard Deviation 55.7 fL (36.4-46.3); Red Blood Count 3.87 M/uL (3.93-5.22); White Blood Count 8.07 K/ul (4.8-10.8)
--- NOTE | 2022-11-11 15:06 | CT Scan Report ---
CT angio head w con, CT head/brain wo con, CT angio neck with con CLINICAL HISTORY: neuro deficit, acute stroke suspected TECHNIQUE: Contiguous axial CT images of the head were acquired from the base of the skull to the nichole tianna without intravenous contrast administration. CT angiography of the head and neck was performed f ollowing intravenous administration of iodinated contrast. Coronal and sagittal MIPS were obtained fr om the axial data set and were submitted for review. Automated dose lowering techniques and/or adjus tment according to patient size were utilized for this examination. All measurements were calculated based on NASCET criteria. CT DOSE: 1034.92 mGy.cm Comparison: Comparison is made to CTA head 10/31/2022 FINDINGS: CT head: Areas of decreased attenuation are present in the periventricular and subcortical white maximo er bilaterally consistent with small vessel ischemic disease. Generalized cerebral atrophy with comme nsurate enlargement of the ventricles, sulci, and cisterns is also present. Multiple lacunar infarcts are seen. In addition there is a new hypodensity in the insula which is new from prior exam. There i s mass effect upon the right lateral ventricle which is similar to prior exam. Biapical emphysema is seen. CTA Neck: A 3 vessel aortic arch is shown. Again noted is bilateral common carotid artery occlusion as well as bilateral internal carotid artery occlusion to the level of the [place]. Mild na rrowing at the origin of the left vertebral artery is seen. The vertebral arteries are codominant. CTA Head: The [place] is opacified likely due to collateral flow from the posterior circulat ion. There is no significant stenosis noted. IMPRESSION: 1. Interval development of a new hypodensity in the right compatible with new infarct. No hemorrhagi c transformation is seen. 2. Redemonstration of complete thrombosis of the bilateral common and internal carotid arteries. 3. No occlusion, hemodynamically significant stenosis, aneurysm, dissection, or arteriovenous malfor mation in the major intracranial arteries. The anterior circulation is supplied by the communicating arteries from the posterior circulation. Assessment of stenosis of the internal carotid arteries is based on NASCET criteria. ACT 112: Negative or not required by law. Electronically signed by: Ezra Queen M.D. 11/11/2022 3:04 PM
--- NOTE | 2022-11-11 15:06 | CT Scan Report ---
CT angio head w con, CT head/brain wo con, CT angio neck with con CLINICAL HISTORY: neuro deficit, acute stroke suspected TECHNIQUE: Contiguous axial CT images of the head were acquired from the base of the skull to the nichole tianna without intravenous contrast administration. CT angiography of the head and neck was performed f ollowing intravenous administration of iodinated contrast. Coronal and sagittal MIPS were obtained fr om the axial data set and were submitted for review. Automated dose lowering techniques and/or adjus tment according to patient size were utilized for this examination. All measurements were calculated based on NASCET criteria. CT DOSE: 1034.92 mGy.cm Comparison: Comparison is made to CTA head 10/31/2022 FINDINGS: CT head: Areas of decreased attenuation are present in the periventricular and subcortical white maximo er bilaterally consistent with small vessel ischemic disease. Generalized cerebral atrophy with comme nsurate enlargement of the ventricles, sulci, and cisterns is also present. Multiple lacunar infarcts are seen. In addition there is a new hypodensity in the insula which is new from prior exam. There i s mass effect upon the right lateral ventricle which is similar to prior exam. Biapical emphysema is seen. CTA Neck: A 3 vessel aortic arch is shown. Again noted is bilateral common carotid artery occlusion as well as bilateral internal carotid artery occlusion to the level of the [place]. Mild na rrowing at the origin of the left vertebral artery is seen. The vertebral arteries are codominant. CTA Head: The [place] is opacified likely due to collateral flow from the posterior circulat ion. There is no significant stenosis noted. IMPRESSION: 1. Interval development of a new hypodensity in the right compatible with new infarct. No hemorrhagi c transformation is seen. 2. Redemonstration of complete thrombosis of the bilateral common and internal carotid arteries. 3. No occlusion, hemodynamically significant stenosis, aneurysm, dissection, or arteriovenous malfor mation in the major intracranial arteries. The anterior circulation is supplied by the communicating arteries from the posterior circulation. Assessment of stenosis of the internal carotid arteries is based on NASCET criteria. ACT 112: Negative or not required by law. Electronically signed by: Ezra Queen M.D. 11/11/2022 3:04 PM
[2022-11-11 15:14] LABS: Partial Thromboplastin Ratio 0.8; Partial Thromboplastin Time 21.7 Seconds (21.0-31.0); Prothrombin Time 10.5 Seconds (9.0-12.0)
[2022-11-11] MEDS: MAGNESIUM SULFATE / D5W 1 GM/100 ML BAG IV SCH ×2 (15:16→16:16)
[2022-11-11 15:17] LABS: Appearance Urine Clear (Clear); Bilirubin Urine Negative (Negative); Blood Urine Negative (Negative); Color Urine Yellow; Glucose Urine UA Negative (Negative); Ketones Urine Negative (Negative); Leukocyte Esterase Urine Negative (Negative); Nitrite Urine Negative (Negative); Protein Urine Negative (Negative); Specific Gravity Urine > 1.045 (1.000-1.030); Urobilinogen Urine Negative (Negative)
[2022-11-11 15:24] LABS: Albumin Globulin Ratio 1.3 (0.9-2); Albumin Level 3.9 gm/dl (3.4-5.0); BUN Creatinine Ratio 31.7 (10-20); Bilirubin,Total 0.4 mg/dl (0.2-1.0); Calcium 9.3 mg/dl (8.5-10.1); Creatinine Clr Calc Pharmacy 73.9 ml/min; Est GFR (African American) 110.9 ml/min; Est GFR (Non-African American) 95.7 ml/min; Potassium 4.3 mmol/L (3.5-5.1); Total Protein 6.9 gm/dl (6.0-8.3)
[2022-11-11 15:31] LABS: Troponin I High Sensitivity 6.6 pg/ml (0-14)
--- NOTE | 2022-11-11 15:58 | History & Physical Report ---
Date of Service November 11, 2022 Assessment & Plan (1) Acute CVA (cerebrovascular accident): Plan: Recurrent strokes Allow permissive hypertension - continue carvedilol but will defer losartan to providers tomorrow No TTE performed on last admission therefore we will repeat this now despite recently performed in September she may have a left ventricular thrombus necessitating anticoagulation. LDL 54. Continue rosuvastatin - no need to repeat lipid panel. No HbA1c last admission. We will perform this with a.m. labs. PT/OT/speech evaluation Brain MRI - consult neurology if showing new acute strokes Consult palliative care to discuss goals of care given limited interventions, swallowing now affected and likelihood of further strokes NPO until speech evaluation, LR @ 100ml/hr overnight (2) Occult blood positive stool: Plan: Concerning for GI bleed. Certainly not EGD or colonoscopy candidate. Start pantoprazole 40mg IV daily - previously on this and unclear why it was discontinued (3) Anemia: Plan: Suspect iron def. and possible benefit depending on goals of care with iron transfusion Ferritin, Transferrin sats, B12, folate wtih AM labs (4) Carotid stent occlusion: Plan: No surgical intervention recommended per vascular note from November 01 (5) Left carotid artery occlusion: Plan: Noted (6) PAD (peripheral artery disease): Plan: S/p stent to right LE (February 2021) Bilateral iliac artery stenosis Continue dual antiplatelet therapy with aspirin clopidogrel Continue rosuvastatin (7) Above knee amputation of right lower extremity: Plan VTE prophylaxis - given fecal occult blood with worsening anemia and dual antiplatelet therapy will defer any further anticoagulation on admission Diet - NPO pending speech evaluation given ongoing slurred speech Disposition - admit to PCU Admission and Anticipated Discharge Date Admission Date: November 11, 2022 History of Present Illness Chief Complaint: Slurred speech, choking on food Primary Care Provider: LAKSHMI Garza Daniela Bellamy is a 67 year old female who presents to the ER as a stroke alert due to slurred speech. Unable to get much history from patient other than she was eating today and choked on some food so her called for an ambulance. Discussed history with her over the phone. He reports he hasn't been able to understand her well for the last three days. Having increasing slurred speech. Today she was slobbering more, much more incoherent, choking on food and had a left sided facial droop so called ambulance. She was also holding her right arm as if she was in pain although unable to verbalize whether she was in pain. He reports she was taking her medications as far as he is aware but did not stand over her to make sure. Daniela was recently admitted from October 31 to 2022 due to vision loss. She was diagnosed with subcentimeter acute infarcts noted in the central semiovale watershed distribution of the right greater than left frontal parietal lobes. She was also noted to have complete occlusion of her recently placed right ICA stent via TCAR procedure on October 10 along with a chronic left common and ICA occlusion. She was seen by vascular surgery and recommended dual antiplatelets with no surgical intervention at that time recommended. The patient was a telestroke alert in the Emergency department. No TNK was recommended. CT head was concerning for interval development of a new hypodensity in the right compatible with new infarct. Fecal occult blood was positive. She was referred to medicine for admission and ongoing management of acute stroke. Allergies Allergy/AdvReac Type Severity Reaction Status Date / Time No Known Allergies Allergy Mild Verified 11/11/22 16:44 Home Medications Medication Instructions Recorded Confirmed Type tramadol 50 mg tablet 50 mg PO Q6H PRN pain #60 tabs 11/02/22 11/11/22 Rx aspirin 81 mg tablet,delayed 81 mg PO QAM #90 tabs 11/09/22 11/11/22 Rx release carvedilol 3.125 mg tablet 3.125 mg PO BIDM #180 tabs 11/09/22 11/11/22 Rx clopidogrel 75 mg tablet 75 mg PO QAM #90 tabs 11/09/22 11/11/22 Rx losartan 25 mg tablet 12.5 mg PO QAM #45 tabs 11/09/22 11/11/22 Rx rosuvastatin 20 mg tablet 20 mg PO QAM #90 tabs 11/09/22 11/11/22 Rx Past Med/Surg History Medical History CAD (coronary artery disease) Remote LAD stent, repeat cath 2004 with 20% in stent restenosis Carotid artery disease Neck CTA 07/10/22- Status post right carotid endarterectomy. Luminal irregularity and narrowing of the proximal to mid cervical right internal carotid artery with approximate 70% stenosis which has progressed since prior CTA. 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 Occlusion with distal reconstitution versus severe stenosis of the right external carotid artery. Carotid stent occlusion Chronic anemia COPD (chronic obstructive pulmonary disease) Per records, pt denies CVA (cerebral vascular accident) 04/2021, residual memory issues + right hand weakness, no neurologist GERD (gastroesophageal reflux disease) Controlled History of GI bleed Hypertension Ischemic ulcer of right foot [facility]s with [facility] Left renal mass Left side, concern for RCC Pt unaware PAD (peripheral artery disease) S/p stent to right LE (February 2021) Bilateral iliac artery stenosis Poor historian S/P CVA Rectal mass Per records, pt unaware Vasculopathy Ventricular asystolia 2020, follows with [facility] cardio Surgical History 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) Right AKA (11/16/21): LMA#3 + PNB at [facility], [place]. No issues noted per post-op anesthesia progress note. H/O exploratory laparotomy (01/22/21) Exploratory laparotomy, oversew perforated duodenal ulcer, abdominal washout. Dr. 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 Lung cancer PAD (peripheral artery disease) Denies family history of Ovarian cancer Prostate cancer Myocardial infarction Breast cancer Colorectal cancer Social History Smoking Status: Current every day smoker Tobacco Type: Cigarettes Age Started Using Tobacco: 23; packs per day: 1; Cigarettes Per Day: 1 PPD x 35 years; Second Hand Exposure: No; Hx Alcohol Use: Yes Alcohol type: beer Alcohol Intake Frequency: 4 or More x per/Week Alcohol Intake Frequency Comment: 2-3 beers daily or more Hx Substance Use: No Preferred Language: Setswana Communication Ability: Impaired Visual Impairment: Limited Hearing Ability: Normal Poultry Vaccinator Required: No Beliefs That Will Affect Care: None marital status: Current Living Situation: Spouse current occupational status: retired current occupation: [employer]- stopped work after AK[employer] How many Children do You have: 2 Other Information That Helps Us Care for You: No Feels Safe at Home: Yes Safety Concerns: Feels Safe At This Time Childhood Exposure to Second-Hand Smoke: Yes caffeine: Yes during the past year weight has: remained stable Dental Care, Regularly: No Physical Activity Frequency: Does not Exercise Physical Activity Frequency Comment: on feet at work all day Seatbelt Use: always Sunscreen Use: No Assistive Devices: Wheelchair Review of Systems Review of Systems: All systems reviewed & are unremarkable except as noted in HPI & below Physical Exam Constitutional: WD/WN, vitals as above Eyes: PERRL, conjunctivae normal, anicteric sclerae (although difficult exam as patient kept closing her eyes) Respiratory: normal respiratory effort, lungs clear to auscultation Cardiovascular: RRR, no murmur, no edema Gastrointestinal (Abdomen): normal bowel sounds, soft, nontender, no hepatosplenomegaly Skin: no rashes, warm and dry Neurologic: awake; no focal motor deficits Speech / Cognition: + abnormal speech (Dysarthria) and + expressive aphasia; no receptive aphasia Motor/Sensory: no tremor, no pronator drift and no sensory deficit Cranial Nerves: PERRL (see above), EOM intact bilaterally, tongue midline, able to rotate head bilaterally, able to elevate shoulders bilaterally, no nystagmus and symmetric palate elevation; + abnormal facial strength (left facial droop) Coordination: normal [id number] test Results & Data Results & Data ([facility]) Vital Signs (Past 12 Hours) Vital Signs Temp Pulse Pulse Resp BP BP Pulse Ox 11/11/22 15:18 65 12 194/62 H 99 11/11/22 15:03 62 12 199/94 H 100 11/11/22 14:48 65 18 195/80 H 11/11/22 14:33 36.6 C 76 20 185/67 H O2 Del Method O2 Flow Rate 11/11/22 15:18 Nasal Cannula 2 11/11/22 15:03 Nasal Cannula 2 11/11/22 14:48 Room Air 11/11/22 14:33 Room Air Laboratory Results Abnormal lab results 11/11/22 11/11/22 11/11/22 Range/Units 14:04 14:04 14:30 RBC 3.87 L (3.93-5.22) M/uL Hgb 8.9 L (12.0-16.0) g/dl Hct 30.5 L (34.1-44.9) % MCV 78.8 L (80.0-100.0) fL MCH 23.0 L (25.0-34.0) pg MCHC 29.2 L (32.0-36.0) g/dL RDW Std Deviation 55.7 H (36.4-46.3) fL RDW Coeff of Odette 19.6 H (11.5-14.5) % MPV 9.3 L (9.4-12.3) fL Lymph # (Auto) 1.04 L (1.2-3.4) K/uL VBG pH (7.36-7.41) VBG pCO2 (38-50) mmHg BUN/Creatinine Ratio 31.7 H (10-20) Glucose 133 H (70-99(Fasting)) mg/dl POC Glucose 120 H (70-99) mg/dl AST 11 L (13-39) U/L Alkaline Phosphatase 115 H (34-104) U/L Ur Specific [place] (1.000-1.030) POC Stool Occult Blood (Negative) 11/11/22 11/11/22 11/11/22 Range/Units 15:03 15:20 16:06 RBC (3.93-5.22) M/uL Hgb (12.0-16.0) g/dl Hct (34.1-44.9) % MCV (80.0-100.0) fL MCH (25.0-34.0) pg MCHC (32.0-36.0) g/dL RDW Std Deviation (36.4-46.3) fL RDW Coeff of [place]ette (11.5-14.5) % MPV (9.4-12.3) fL Lymph # (Auto) (1.2-3.4) K/uL VBG pH 7.30 L (7.36-7.41) VBG pCO2 54 H (38-50) mmHg BUN/Creatinine Ratio (10-20) Glucose (70-99(Fasting)) mg/dl POC Glucose (70-99) mg/dl AST (13-39) U/L Alkaline Phosphatase (34-104) U/L Ur Specific [place] > 1.045 H (1.000-1.030) POC Stool Occult Blood Positive A (Negative) Diagnostic Findings XR chest 1V portable CLINICAL HISTORY: ?PNA TECHNIQUE: Single frontal radiograph of the chest was obtained. Comparison: Comparison is made to chest radiograph 10/12/2022 FINDINGS: No lines and tubes are seen. The cardiomediastinal silhouette is normal. The lungs are clear. No evidence of pleural effusion or pneumothorax. IMPRESSION: No acute abnormalities and in particular no evidence of pneumonia. CT angio head w con, CT head/brain wo con, CT angio neck with con CLINICAL HISTORY: neuro deficit, acute stroke suspected TECHNIQUE: Contiguous axial CT images of the head were acquired from the base of the skull to the vertex without intravenous contrast administration. CT angiography of the head and neck was performed following intravenous administration of iodinated contrast. Coronal and sagittal MIPS were obtained from the axial data set and were submitted for review. Automated dose lowering techniques and/or adjustment according to patient size were utilized for this examination. All measurements were calculated based on NASCET criteria. CT DOSE: 1034.92 mGy.cm Comparison: Comparison is made to CTA head 10/31/2022 FINDINGS: CT head: Areas of decreased attenuation are present in the periventricular and subcortical white matter bilaterally consistent with small vessel ischemic disease. Generalized cerebral atrophy with commensurate enlargement of the ventricles, sulci, and cisterns is also present. Multiple lacunar infarcts are seen. In addition there is a new hypodensity in the insula which is new from prior exam. There is mass effect upon the right lateral ventricle which is similar to prior exam. Biapical emphysema is seen. CTA Neck: A 3 vessel aortic arch is shown. Again noted is bilateral common carotid artery occlusion as well as bilateral internal carotid artery occlusion to the level of the [place]. Mild narrowing at the origin of the left vertebral artery is seen. The vertebral arteries are codominant. CTA Head: The [place] is opacified likely due to collateral flow from the posterior circulation. There is no significant stenosis noted. IMPRESSION: 1. Interval development of a new hypodensity in the right compatible with new infarct. No hemorrhagic transformation is seen. 2. Redemonstration of complete thrombosis of the bilateral common and internal carotid arteries. 3. No occlusion, hemodynamically significant stenosis, aneurysm, dissection, or arteriovenous malformation in the major intracranial arteries. The anterior circulation is supplied by the communicating arteries from the posterior circulation. Medications Administered ER medications given: Magnesium sulfate 1 g IV NSS 500 mL bolus ECG Indication: other (CVA) Rate (beats per minute): 82 Rhythm: normal sinus Findings: + nonspecific-ST abn (widespread) Comparison ECG Date: from (Oct 31, 2022) Change: no significant change Code Status & VTE Plan VTE Prophylaxis Plan VTE Prophylaxis will be ordered: Yes PG Care Time/CCT Total # of Minutes Spent Total Time Spent with Patient: Total time spent is greater than 50% in coordination of care (as documented) at patient's floor/unit and/or counseling patient: Coding Level of Care Code 91365 INT INP/OBS CARE 375MIN Diagnoses Acute CVA (cerebrovascular accident) I63.9 Occult blood positive stool R19.5 Anemia D64.9 Anemia type: unspecified type Carotid stent occlusion T82.898A Left carotid artery occlusion I65.22 PAD (peripheral artery disease) I73.9 Above knee amputation of right lower extremity S78.111A (1) Anemia Anemia type: unspecified type Qualified Code(s): D64.9 - Anemia, unspecified
--- NOTE | 2022-11-11 16:10 | XRay Report ---
XR chest 1V portable CLINICAL HISTORY: ?PNA TECHNIQUE: Single frontal radiograph of the chest was obtained. Comparison: Comparison is made to chest radiograph 10/12/2022 FINDINGS: No lines and tubes are seen. The cardiomediastinal silhouette is normal. The lungs are clear. No evid ence of pleural effusion or pneumothorax. IMPRESSION: No acute abnormalities and in particular no evidence of pneumonia. ACT 112: Negative or not required by law. Electronically signed by: Ezra Queen M.D. 11/11/2022 4:09 PM
[2022-11-11 16:25] LABS: Base Excess VBG -0.7 mEq/L; HCO3 VBG 27 mmol/L; Oxygen Saturation VBG < 60.0 %; PCO2 VBG 54 mmHg (38-50); PO2 VBG 17 mmHg
[2022-11-11] MEDS ORDERED: PHARMACIST DISCHARGE MED REC CONSULT PRN (18:25)
[2022-11-11] MEDS: LACTATED RINGER'S 1,000 ML IV SCH (19:38)
[2022-11-11] MEDS: PANTOprazole 40 MG in SYRINGE 0 ML IV SCH (21:07)
[2022-11-12] MEDS: LACTATED RINGER'S 1,000 ML IV SCH ×2 (04:50→15:48)
[2022-11-12 06:15] LABS: Basophils # (auto) 0.05 K/uL (0-0.2); Basophils % (auto) 0.8 %; Eosinophils # (auto) 0.09 K/uL (0-0.50); Eosinophils % (auto) 1.4 %; Hematocrit (blood only) 25.6 % (34.1-44.9); Hemoglobin 7.8 g/dl (12.0-16.0); Immature Granulocytes # (auto) 0.02 K/uL (0.00-0.02); Immature Granulocytes % (auto) 0.3 %; Lymphocytes # (auto) 0.85 K/uL (1.2-3.4); Lymphocytes % (auto) 13.7 %; Mean Corpuscular Hemoglobin 23.1 pg (25.0-34.0); Mean Corpuscular Hgb Conc 30.5 g/dL (32.0-36.0); Mean Corpuscular Volume 75.7 fL (80.0-100.0); Mean Platelet Volume 8.8 fL (9.4-12.3); Monocytes # (auto) 0.58 K/uL (0.24-0.82); Monocytes % (auto) 9.3 %; Neutrophils # (auto) 4.63 K/uL (1.4-6.5); Neutrophils % (auto) 74.5 %; Platelet Count 289 K/uL (130-400); RDW Standard Deviation 52.5 fL (36.4-46.3); Red Blood Count 3.38 M/uL (3.93-5.22); White Blood Count 6.22 K/ul (4.8-10.8)
[2022-11-12 06:42] LABS: Anion Gap 4 (3-11); BUN Creatinine Ratio 21.7 (10-20); Blood Urea Nitrogen 10 mg/dl (6-23); Calcium 8.5 mg/dl (8.5-10.1); Carbon Dioxide 28 mmol/L (21-32); Chloride 106 mmol/L (98-107); Creatinine Clr Calc Pharmacy 96.4 ml/min; Est GFR (Non-African American) 104.4 ml/min; Glucose 90 mg/dl (70-99(Fasting)); Potassium 3.6 mmol/L (3.5-5.1); Sodium 138 mmol/L (136-145)
[2022-11-12 06:48] LABS: Iron < 10 mcg/dl (35-150); Unsaturated Iron Binding Cap 399 mcg/dl (155-355)
[2022-11-12] MEDS ORDERED: SODIUM CHLORIDE 0.9% 250 ML IV PRN (06:48)
[2022-11-12 06:49] LABS: Hypochromasia Present; Microcytosis Present; Polychromasia 1+
--- NOTE | 2022-11-12 07:02 | Hospitalist Progress Note ---
Date of Service November 12, 2022 Assessment & Plan (1) Acute CVA (cerebrovascular accident): Plan: Daniela Bellamy is a 67-year-old female with past medical history of CVA, Right ICA occlusion s/p stent, known left carotid occlusion, PAD s/p stent to RLE, anemia, HTN, COPD who presented due to concerns of slurred speech, facial droop, choking on food. Admitted for stroke workup. Recurrent strokes: -Brain MRI showing several small foci of restricted diffusion within the bilateral centrum semiovale (right greater than left) in the right subinsular cortex consistent with acute to subacute infarcts -Allow permissive hypertension - continue carvedilol, hold losartan -LDL 54. Continue rosuvastatin -A1c 5.1 -continue DAP. -PT/OT/speech evaluation -- recommending easy to chew diet -TTE pending for concern of embolic origin of stroke. less likely considering she has bilateral ICA ds. -Consult Neurology due to new finding of right subinsular cortex finding on B- MRI. -consider vascular surgery consult in am -Consult palliative care to discuss goals of care given limited interventions, swallowing now affected, and likelihood of further strokes Carotid stent occlusion: -Right ICA stent via TCAR procedure on 10/10/22 -Found to be occluded earlier this month -No surgical intervention recommended per vascular note from November 01 Left carotid artery occlusion: -Noted -Vacular surgery evaluation last admission, no surgery recommended Occult blood positive stool: -Concerning for GI bleed -Not EGD or colonoscopy candidate -Start pantoprazole 40mg IV daily - previously on this and unclear why it was discontinued -Monitor H&H -- recheck at 1500 and transfuse if Hgb < 7 -Type & crossed with 2 units on hold -If Hgb continues to downtrend will consult GI for possible bleed in the setting of DAPT Anemia: -With low iron, & ferritin, unsaturated IBC elevated -Give venofer 100mg x 1 -- recommend monitor in outpatient setting -Monitor H&H as above Hypertension: -Continue carvedilol and hold losartan as above for permissive hypertension PAD: -S/p stent to right LE (February 2021) -Bilateral iliac artery stenosis -Continue dual antiplatelet therapy with aspirin clopidogrel -Continue rosuvastatin VTE prophylaxis - given fecal occult blood with worsening anemia and dual antip latelet therapy will defer any further anticoagulation at this time Diet - Regular, easy to chew per Speech Disposition - PCU, PT/OT evals CODE STATUS: DNR/DNI (2) Occult blood positive stool: (3) Anemia: (4) Carotid stent occlusion: (5) Left carotid artery occlusion: (6) PAD (peripheral artery disease): (7) Above knee amputation of right lower extremity: Admission and Anticipated Discharge Date Admission Date: November 11, 2022 Supervising Physician Co-Signing Physician Notes Resident Physician Supervision Note: I independently interviewed and examined the patient and verified the finney history and physical, reviewed labs and image studies and agree with resident findings and care plan. Subjective Seen at bedside. Patient alert and oriented. Able to converse and answer questions appropriately, though speech somewhat slurred. She states she does not remember much about her symptoms, says her called for ambulance. Currently denying NEWSOME, dizziness, CP, palp, SOB, weakness, numbness, abd pain, n/v. Review of Systems Review of Systems: All systems reviewed & are unremarkable except as noted in Subjective Physical Exam Physical Exam: GENERAL: A&Ox3. NAD. CHEST/LUNGS: CTAB A/P. No crackles, wheezes, rales, rhonchi. HEART: RRR. No m/g/r. No carotid bruits. ABDOMEN: NT/ND, soft. BS+ x4 EXTREMITIES: No cyanosis, no clubbing, no edema SKIN: Warm and dry. No rashes or lesions. NEUROLOGIC: Slurred speech. Able to move all 4 extremities equally. No facial droop noted. Results & Data Results & Data ([facility]) Vital Signs (Past 12 Hours) Vital Signs Temp Pulse Pulse Resp BP Pulse Ox O2 Del Method 11/11/22 19:30 78 11/11/22 22:00 64 11/12/22 03:25 36.5 C 69 17 140/62 98 Room Air 11/11/22 23:16 36.8 C 86 16 173/94 H 99 Nasal Cannula 11/11/22 19:25 Nasal Cannula 11/11/22 19:34 37.0 C 95 H 18 171/66 H 95 Nasal Cannula O2 Flow Rate 11/11/22 19:30 11/11/22 22:00 11/12/22 03:25 11/11/22 23:16 11/11/22 19:25 2 11/11/22 19:34 2 Resident Activity Tracking Resident Involvement: Resident Care Provided Care Provided: Adult Hospital Medicine (1) Anemia Anemia type: unspecified type Qualified Code(s): D64.9 - Anemia, unspecified
[2022-11-12 08:12] LABS: Estimated Average Glucose 100 mg/dl; Hemoglobin A1C 5.1 % (4.5-5.6)
[2022-11-12] MEDS: ASPIRIN 81 MG ECTAB PO SCH (09:01)
[2022-11-12] MEDS: ROSUVASTATIN CALCIUM 20 MG TAB PO SCH (09:01)
[2022-11-12] MEDS: CLOPIDOGREL BISULFATE 75 MG TAB PO SCH (09:01)
[2022-11-12] MEDS: carvediloL 3.125 MG TAB PO SCH ×2 (09:01→17:01)
[2022-11-12] MEDS: PANTOprazole 40 MG in SYRINGE 0 ML IV SCH (11:45)
--- NOTE | 2022-11-12 11:51 | Magnetic Resonance Report ---
MRI OF THE BRAIN WITHOUT IV CONTRAST CLINICAL HISTORY: Stroke COMPARISON STUDY: CT of the brain dated 11/11/2022. TECHNIQUE: MRI of the brain was performed utilizing various T1 and T2-weighted sequences in the axial , sagittal, and coronal planes. IV contrast was not administered for this examination. The examinatio n is degraded by motion artifact. FINDINGS: Brain parenchyma: There is age-related involutional change noting mild to moderate subcortical and pe riventricular microangiopathic disease. There are several small foci of restricted diffusion within t he centrum semiovale bilaterally, right greater than left. There is also focus of restricted diffusio n in the right subinsular cortex. These are consistent with acute to subacute infarcts. Chronic infar cts are again seen in the left basal ganglia and the left turner radiata. There is no hemorrhage or m ass effect. No extra-axial fluid collection is seen. The cerebellar tonsils are normal in configurat ion. Ventricles, sulci, and cisterns: Prominent secondary to involutional change. Pituitary and sella: Unremarkable. Intracranial vasculature: There is loss of both internal carotid artery flow voids at the skull base consistent with known vessel occlusions. Flow voids are maintained within the middle cerebral arterie s and both vertebral arteries. Orbits: The bony orbits are grossly intact. Orbital contents are normal in appearance. Sinuses and mastoids: There is mild mucosal thickening within the right maxillary antrum and the righ t sphenoid sinus. The remaining para nasal sinuses are clear. The mastoid air cells are well pneumati zed. Calvarium: Unremarkable. Cervical cord: Partially visualized cervical spinal cord is normal in morphology and signal intensity . IMPRESSION: 1. There are several small foci of restricted diffusion within the bilateral centrum semiovale (right greater than left) and the right subinsular cortex consistent with acute to subacute infarcts. 2. There is no hemorrhage or mass effect. 3. Occlusion of both internal carotid arteries is again seen at the skull base. ACT 112: Negative or not required by law. Electronically signed by: Dae Quintero M.D. 11/12/2022 11:48 AM
[2022-11-12] MEDS ORDERED: IRON SUCROSE 100 MG in 0.9 % SODIUM CHLORIDE 100 ML IV ONE (14:00)
--- NOTE | 2022-11-12 14:10 | Neurology Consultation ---
Date of Consultation November 12, 2022 Assessment & Plan (1) Acute CVA (cerebrovascular accident): (2) Bilateral carotid artery occlusion: (3) Tobacco abuse: Plan 67-year-old female with bilateral carotid/internal carotid thrombosis identified during her last admission to the [facility] 10 days ago during which time she was noted to have bilateral, right greater than left watershed distribution infarcts. She was discharged on daily low-dose aspirin, clopidogrel, and rosuvastatin. The only change to her medication regimen at that time was the addition of a low-dose of losartan. She now presents with altered mental status which seems to be resolved, but has persistent dysarthria which has been present for the past 4 days. A repeat brain MRI has revealed what looks like two new foci of restricted diffusion within the right cerebral hemisphere consistent with acute to subacute infarcts not seen on the previous MRI (see HPI for details.) There are multiple bihemispheric, right greater than left acute to subacute appearing infarcts that were seen previously. Notably, this patient does not appear to have a hemiparesis or ataxia. Her speech is dysarthric and she does have a left facial droop. Her visual ludwig are grossly full to confrontation and her extraocular motility appears to be intact. Patient should continue with clopidogrel 75 mg/day and aspirin 81 mg/day. (I do not think switching to a different antiplatelet drug such as Aggrenox would confer any additional benefit in her case. Further, I think that the long-term risk of bleeding complications of increasing the dosage of either her aspirin or Plavix would outweigh any benefit. Her long-term risk of bleeding complications is already modestly elevated with 2 antiplatelet drugs.) There is no specific indication for an anticoagulant in this patient's case. However, it would be reasonable to obtain additional outpatient cardiac monitoring to further exclude atrial fibrillation. If she were found to have atrial fibrillation then a case could be made to start an anticoagulant such as Eliquis to protect her posterior circulation, which of course supplies her anterior circulation via intact posterior communicating arteries. Permissive hypertension would be appropriate in this patient with a goal systolic blood pressure around 150 mmHg. Agree with a mean arterial pressure between 90 and 95. Aggressive lowering of this patient's low blood pressure could predispose to further watershed infarcts. Continue with rosuvastatin. Smoking cessation counseling. Consider obtaining a nonurgent outpatient evaluation with a neurovascular stroke specialist at a tertiary center for a second opinion regarding her management. Revascularization surgeries can sometimes be undertaken, superficial temporal artery to middle cerebral artery bypass, to potentially address diminished cerebral perfusion due to occlusion of the internal carotids. However, the patient and her spouse do not seem very interested in pursuing this type of evaluation, at least at this time. History of Present Illness Reason for Consultation: stroke Requesting Physician: Jerardo Geiger MD Attending Physician: Mera Mike MD History of Present Illness The patient is a 67-year-old female who was admitted to [facility] on November 01, 2022 for multiple bilateral hemispheric watershed type infarcts occurring in the context of bilateral internal carotid artery thrombosis. She had had a history of complete thrombosis of the left internal carotid artery, and apparently rethrombosis of the right internal carotid artery after having undergone remote right CEA and more recent, right TCAR procedure on October 10, 2022. This rethrombosis of the right internal carotid artery occurred while patient was on aspirin and Plavix. She was seen by Dr. Tam in neurological consultation at that time. She was noted to have patent vertebral arteries and patent intracranial arterial circulation but was considered to have decreased cerebral perfusion due to bilateral carotid artery thrombosis with multiple watershed infarcts as above. Past medical history is also notable for peripheral arterial disease, status post remote right [id number] amputation, cigarette smoking, COPD. Patient was discharged on daily low-dose aspirin, clopidogrel, and rosuvastatin. Smoking cessation was emphasized. She did have a follow-up appointment with her PCP, Dr. Kruger, on November 09. She had been referred to ophthalmology to address her vision complaint although the issue has been felt to be related to decreased cerebral perfusion as above. Smoking cessation was discussed. History also notable for anemia which has been addressed with iron supplementation. She is also prescribed losartan to address hypertension. I see that she did have a hypercoagulable panel completed during her last admission to the [facility]. This testing was unremarkable, however. The patient had presented again to the emergency department yesterday for further assessment of an episode of unresponsiveness that occurred while eating. She had exhibited some left-sided weakness and slurred speech as well. She complained of a mild headache. Her speech was dysarthric at the time of her initial evaluation. She complained of facial paresthesias and ongoing difficulty with vision. Her speech difficulty has actually been persistent for several days. Patient did have a telestroke consultation although was not felt to be an appropriate candidate for thrombolytic therapy given timing of symptom onset. A CT of the head had suggested a new hypodensity within the right subinsular region potentially consistent with a new infarct compared with prior studies. There are chronic appearing lacunar infarcts as well, notably within the left turner radiata and left caudate nucleus as well as within the left basal ganglia, subinsular region. CT angiography of the head and neck again revealed complete thrombosis of the bilateral common and internal carotid arteries. The anterior circulation is supplied by the communicating arteries from the posterior circulation. Patient's patient was noted to be dysarthric by the admitting physician. No associated hemiparesis. Patient did have a left facial droop. She did undergo a follow-up brain MRI. I independently reviewed these images and compared them with the previous brain MRI done November 01, 2022. There is a focus of restricted diffusion within the right subinsular region that was not seen on the previous MRI. There is another focus of restricted diffusion within the right turner radiata that was not seen on the previous MRI. There are several other foci restricted diffusion within both cerebral hemispheres, right greater than left, that are not new, however, and consistent with watershed type distribution infarcts. Allergies Allergy/AdvReac Type Severity Reaction Status Date / Time No Known Allergies Allergy Mild Verified 11/11/22 16:44 Home Medications Medication Instructions Recorded Confirmed Type tramadol 50 mg tablet 50 mg PO Q6H PRN pain #60 tabs 11/02/22 11/11/22 Rx aspirin 81 mg tablet,delayed 81 mg PO QAM #90 tabs 11/09/22 11/11/22 Rx release carvedilol 3.125 mg tablet 3.125 mg PO BIDM #180 tabs 11/09/22 11/11/22 Rx clopidogrel 75 mg tablet 75 mg PO QAM #90 tabs 11/09/22 11/11/22 Rx losartan 25 mg tablet 12.5 mg PO QAM #45 tabs 11/09/22 11/11/22 Rx rosuvastatin 20 mg tablet 20 mg PO QAM #90 tabs 11/09/22 11/11/22 Rx Patient History Medical History CAD (coronary artery disease) Remote LAD stent, repeat cath 2004 with 20% in stent restenosis Carotid artery disease Neck CTA 07/10/22- Status post right carotid endarterectomy. Luminal irregularity and narrowing of the proximal to mid cervical right internal carotid artery with approximate 70% stenosis which has progressed since prior CTA. 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 Occlusion with distal reconstitution versus severe stenosis of the right external carotid artery. Carotid stent occlusion Chronic anemia COPD (chronic obstructive pulmonary disease) Per records, pt denies CVA (cerebral vascular accident) 04/2021, residual memory issues + right hand weakness, no neurologist GERD (gastroesophageal reflux disease) Controlled History of GI bleed Hypertension Ischemic ulcer of right foot [facility] with [facility] Left renal mass Left side, concern for RCC Pt unaware PAD (peripheral artery disease) S/p stent to right LE (February 2021) Bilateral iliac artery stenosis Poor historian S/P CVA Rectal mass Per records, pt unaware Vasculopathy Ventricular asystolia 2020, follows with [facility] cardio Surgical History 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) Right AKA (11/16/21): LMA#3 + PNB at [facility]. No issues noted per post-op anesthesia progress note. H/O exploratory laparotomy (01/22/21) Exploratory laparotomy, oversew perforated duodenal ulcer, abdominal washout. Dr. Craig 01/22/2021 H/O tubal ligation H/O vascular surgery 2 stents [address] right leg 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 Lung cancer PAD (peripheral artery disease) Denies family history of Ovarian cancer Prostate cancer Myocardial infarction Breast cancer Colorectal cancer Social History Smoking Status: Current every day smoker Tobacco Type: Cigarettes Age Started Using Tobacco: 23; packs per day: 1; Cigarettes Per Day: 1 PPD x 35 years; Second Hand Exposure: No; Hx Alcohol Use: Yes Alcohol type: beer Alcohol Intake Frequency: 4 or More x per/Week Alcohol Intake Frequency Comment: 2-3 beers daily or more Hx Substance Use: No Preferred Language: Kuwaiti Communication Ability: Impaired Visual Impairment: Limited Hearing Ability: Normal 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: No Beliefs That Will Affect Care: None marital status: Current Living Situation: Spouse current occupational status: retired current occupation: [employer]- stopped work after AKA How many Children do You have: 2 Other Information That Helps Us Care for You: No Feels Safe at Home: Yes Safety Concerns: Feels Safe At This Time Childhood Exposure to Second-Hand Smoke: Yes caffeine: Yes during the past year weight has: remained stable Dental Care, Regularly: No Physical Activity Frequency: Does not Exercise Physical Activity Frequency Comment: on feet at work all day Seatbelt Use: always Sunscreen Use: No Assistive Devices: Wheelchair Review of Systems Constitutional: no fever and no chills Eyes: as per Subjective / HPI and + problem reported (Blurry vision, loss of vision) Ear, Nose, Mouth, Throat: no hearing loss Respiratory: no cough and no dyspnea Cardiovascular: no chest pain and no palpitations Gastrointestinal: no nausea and no vomiting Genitourinary: no dysuria Musculoskeletal: no neck pain and no myalgia Integumentary: no rash and no lesions Neurologic: as per Subjective / HPI, + localized weakness and + confusion; no abnormal movements and no headache(s) Psychiatric: no depression and no anxiety Hematologic / Lymphatic: no easy bleeding and no easy bruising Exam (Neuro) Constitutional: + thin and + frail appearing Eyes: PERRL, normal accommodation and EOM intact bilaterally Cardiovascular: Vessels: + carotid bruit (R>L) Neurologic: Oriented to:: Person, Place and Time Memory: Short Term Intact and Remote Intact Attention: Span Intact and Concentration Intact Speech Fluency: Dysarthria Speech Aphasia: negative Aphasia Fund of Knowledge: Current Events, Past History and Vocabulary Cranial Nerves: Normal II, III, IV, , V, VIII, IX, X, XI and XII; Abnorm VII (left facial droop noted) Motor Strength: Normal Lower Extremities (right AKA noted) and Normal Upper Extremities; negative Hemiparesis Motor Tone: Normal Lower Extremities Muscle Bulk/Involuntary Movements: No Involuntary Movements; negative Muscle Atrophy Sensation: Light Touch Intact, Pain/Temperature Intact, Vibration Intact and Proprioception Intact Coordination: negative Dysdiadochokinesia, Finger-Nose Abnormal or Heel-Garnica Abnormal Deep Tendon Reflexes: Rt Triceps: 1+, Lt Triceps: 1+, Rt Biceps: 1+, Lt Biceps: 1+, Rt Brachioradialis: 1+, Lt Brachioradialis: 1+, Lt Patellar: 2+ and Lt Ankle: 2+ Special Tests: negative Babinski Present Details: Gait cannot be tested. Right diavm-ted-xyiz amputation noted. Patient speech is notably dysarthric. Visual ludwig are grossly full to confrontation. Results & Data ([facility]) Vital Signs (Past 12 Hours) Vital Signs Temp Pulse Pulse Resp BP Pulse Ox O2 Del Method 11/12/22 08:00 63 11/12/22 07:33 36.9 C 80 18 159/72 H 97 Nasal Cannula 11/12/22 03:25 36.5 C 69 17 140/62 98 Room Air O2 Flow Rate 11/12/22 08:00 11/12/22 07:33 2 11/12/22 03:25 Laboratory Results WBC 6.22, hemoglobin 7.8, hematocrit 25.6, MCV 75.7, platelet count 289, sodium 138, potassium 3.6, BUN 10, creatinine 0.46, hemoglobin A1c 5.1, calcium 8.5, iron less than 10, unsaturated IBC 399, ferritin 6.0, AST 11, ALT 8, vitamin B12 300, folate 18.78, TSH 2.921. Lipid panel from November 01 reviewed, triglycerides 88, cholesterol 131, LDL 54, VLDL 18, HDL 59. Hypercoagulable panel from November 01, 2022 unremarkable. Diagnostic Findings MRI of the brain completed this morning reviewed and as described above in the history of present illness. I also note the absence of flow voids for both internal carotid arteries at the skull base. CT angiography of the head and neck reviewed as well and as described in the HPI redemonstrating complete thrombosis of the bilateral common and internal carotid arteries with the anterior cerebral circulation supplied by the communicating arteries via the posterior circulation. An electrocardiogram completed yesterday revealed a normal sinus rhythm, 82 bpm. An echocardiogram completed in September 2022 had revealed normal left ventricular size and systolic function, no regional wall motion abnormalities, ejection fraction 60%, moderate left ventricular hypertrophy, grade 1 diastolic dysfunction of the left ventricle with elevated left atrial filling pressure, normal right ventricular size and function, mildly dilated left atrium, calci fied tricuspid aortic valve without stenosis or insufficiency. Top normal estimated pulmonary artery pressure. PG Care Time/CCT Total # of Minutes Spent Total Time Spent with Patient: Total time spent is greater than 50% in coordination of care (as documented) at patient's floor/unit and/or counseling patient: 90 min Coding Level of Care Code 68960 INT INP/OBS CARE 3/75MIN Diagnoses Acute CVA (cerebrovascular accident) I63.9 Bilateral carotid artery occlusion I65.23 Tobacco abuse Z72.0
[2022-11-12 15:09] LABS: Hematocrit (blood only) 27.2 % (34.1-44.9); Hemoglobin 8.1 g/dl (12.0-16.0)
[2022-11-12] MEDS: NICOTINE 21 MG/24 HR TDSY TD SCH (17:00)
--- NOTE | 2022-11-12 22:01 | Electrocardiogram Report ---
Test Reason : Blood Pressure : / mmHG Vent. Rate : 082 BPM Atrial Rate : 082 BPM P-R Int : 186 ms QRS Dur : 102 ms QT Int : 406 ms P-R-T Axes : 067 078 104 degrees QTc Int : 474 ms Normal sinus rhythm Prolonged QT Abnormal ECG When compared with ECG of 31-OCT-2022 20:22, T wave inversion now evident in Anterior leads Confirmed by Rishabh Dotson ([id number]) on 11/12/2022 10:01:20 PM Referred By: REFERRED SELF Confirmed By:Rishabh Dotson
[2022-11-13] MEDS: LACTATED RINGER'S 1,000 ML IV SCH ×3 (01:54→20:50)
[2022-11-13 06:18] LABS: Basophils # (auto) 0.07 K/uL (0-0.2); Basophils % (auto) 0.9 %; Eosinophils # (auto) 0.09 K/uL (0-0.50); Eosinophils % (auto) 1.2 %; Hematocrit (blood only) 27.5 % (34.1-44.9); Hemoglobin 8.3 g/dl (12.0-16.0); Immature Granulocytes # (auto) 0.03 K/uL (0.00-0.02); Immature Granulocytes % (auto) 0.4 %; Lymphocytes # (auto) 0.89 K/uL (1.2-3.4); Lymphocytes % (auto) 12.1 %; Mean Corpuscular Hemoglobin 23.2 pg (25.0-34.0); Mean Corpuscular Hgb Conc 30.2 g/dL (32.0-36.0); Mean Corpuscular Volume 76.8 fL (80.0-100.0); Mean Platelet Volume 8.7 fL (9.4-12.3); Monocytes # (auto) 0.64 K/uL (0.24-0.82); Monocytes % (auto) 8.7 %; Neutrophils # (auto) 5.65 K/uL (1.4-6.5); Neutrophils % (auto) 76.7 %; Platelet Count 305 K/uL (130-400); RDW Coefficient of Variation 18.7 % (11.5-14.5); RDW Standard Deviation 52.3 fL (36.4-46.3); Red Blood Count 3.58 M/uL (3.93-5.22); White Blood Count 7.37 K/ul (4.8-10.8)
[2022-11-13 06:36] LABS: Calcium 8.7 mg/dl (8.5-10.1); Creatinine Clr Calc Pharmacy 87.3 ml/min; Est GFR (African American) 117.7 ml/min; Est GFR (Non-African American) 101.6 ml/min; Potassium 3.3 mmol/L (3.5-5.1)
[2022-11-13] MEDS ORDERED: POTASSIUM CHLORIDE CRTAB 20 MEQ TABCR PO STA (07:12)
[2022-11-13] MEDS: ROSUVASTATIN CALCIUM 20 MG TAB PO SCH (08:16)
[2022-11-13] MEDS: carvediloL 3.125 MG TAB PO SCH ×2 (08:16→16:40)
[2022-11-13] MEDS: ASPIRIN 81 MG ECTAB PO SCH (08:17)
[2022-11-13] MEDS: CLOPIDOGREL BISULFATE 75 MG TAB PO SCH (08:17)
[2022-11-13] MEDS: NICOTINE 21 MG/24 HR TDSY TD SCH (08:19)
--- NOTE | 2022-11-13 08:52 | XCELERA ---
[id number]
--- NOTE | 2022-11-13 09:13 | Hospitalist Progress Note ---
Date of Service November 13, 2022 Assessment & Plan (1) Acute CVA (cerebrovascular accident): Plan: Daniela Bellamy is a 67-year-old female with past medical history of CVA, Right ICA occlusion s/p stent, known left carotid occlusion, PAD s/p stent to RLE, anemia, HTN, COPD who presented due to concerns of slurred speech, facial droop, choking on food. Admitted for stroke workup. Recurrent strokes: -Brain MRI- several small foci of restricted diffusion within the bilateral centrum semiovale (right greater than left) in the right subinsular cortex consistent with acute to subacute infarcts -Allow permissive hypertension - continue carvedilol, hold losartan -LDL, A1C normal -TTE unremarkable -PT/OT ongoing -Speech evaluation- easy to chew diet -Palliative care consulted- pt would very much like to return home -Neurology consulted -Continue rosuvastatin, DAPT- aspirin 81 mg, clopidogrel 75 mg -Recommend outpatient cardiac monitoring for potential atrial fibrillation thromboembolism -Permissive hypertension- goal SBP 150, MAP 90-95 -Resumed home losartan 12.5 mg today given SBP elevated 180+ -Unfortunately she does have a poor prognosis, we discussed goals of care today and pt would like to return home Anemia with positive FOBT -Concerning for GI bleed -Not EGD or colonoscopy candidate at present -Continue pantoprazole 40mg IV daily -Monitor H&H -- transfuse if Hgb < 7 -Hgb 8.3 today, uptrending -If Hgb downtrends, consider GI consult for possible bleed in the setting of DAPT Iron deficiency anemia: -With low iron, & ferritin, unsaturated IBC elevated -Gave Venofer 300mg x 1 -- recommend monitor in outpatient setting -Monitor H&H as above Hypertension: -Continue carvedilol and hold losartan as above for permissive hypertension Carotid stent occlusion: -Right ICA stent via TCAR procedure on 10/10/22 -Found to be occluded earlier this month -No surgical intervention recommended per vascular note from 11/01 Left carotid artery occlusion: -Noted -Vacular surgery aware, no surgery recommended PAD: -S/p stent to right LE (February 2021) -Bilateral iliac artery stenosis -Continue dual antiplatelet therapy with aspirin 81 mg, clopidogrel 75 mg -Continue rosuvastatin 20 mg VTE prophylaxis - given fecal occult blood with anemia and dual antiplatelet therapy will defer any further anticoagulation at this time Diet - Regular, easy to chew per speech evaluation Disposition - PCU will need home health services on discharge CODE STATUS: DNR/DNI (2) Occult blood positive stool: (3) Anemia: (4) Carotid stent occlusion: (5) Left carotid artery occlusion: (6) PAD (peripheral artery disease): (7) Above knee amputation of right lower extremity: Admission and Anticipated Discharge Date Admission Date: November 11, 2022 Supervising Physician Co-Signing Physician Notes I personally examined the patient and verified all finney points of history and exam, discussed case, and agree with decision making with Dr Davenport. Feeling okay. Would like to go home, but would like to work with therapy with her prosthesis first. Palliative input greatly appreciated. Vitals noted, in general she is awake and alert pleasant no distress. HEENT normocephalic atraumatic mucous membranes moist. Breathing unlabored no accessory muscle use good effort. Skin shows no rashes no pallor or icterus. Severe, essentially end-stage cerebrovascular diseasemedication management/supportive care. Home is her goal. Permissive hypertension. Otherwise as above. Subjective No acute events overnight. Pt states she feels well overall. Still endorsing some mild fatigue and difficulty with speech but this is improving. She does report a mild headache as well. Denies any focal weakness or numbness at this time. Denies dysphagia, tolerating meals well. Review of Systems Review of Systems: Per HPI Physical Exam Physical Exam: GENERAL: A&Ox3. NAD. CHEST/LUNGS: CTAB A/P. No crackles, wheezes, rales, rhonchi. HEART: RRR. No m/g/r. No carotid bruits. ABDOMEN: NT/ND, soft EXTREMITIES: No cyanosis, no clubbing, no edema SKIN: Warm and dry. No rashes or lesions. NEUROLOGIC: Slurred speech. Able to move all 4 extremities equally. No facial droop noted. Results & Data Results & Data ([facility]) Vital Signs (Past 12 Hours) Vital Signs Temp Pulse Pulse Resp BP BP Pulse Ox 11/13/22 07:45 11/13/22 07:13 37.0 C 91 H 15 184/82 H 184/88 H 98 11/13/22 03:00 36.4 C L 89 15 183/97 H 11/12/22 23:00 83 11/12/22 23:15 91 H 18 194/96 H 206/102 H 11/12/22 22:32 37.1 C 84 18 163/114 H 97 O2 Del Method O2 Flow Rate 11/13/22 07:45 Nasal Cannula 2 11/13/22 07:13 Nasal Cannula 2 11/13/22 03:00 Nasal Cannula 2 11/12/22 23:00 11/12/22 23:15 11/12/22 22:32 Nasal Cannula 2 Resident Activity Tracking Resident Involvement: Resident Care Provided Care Provided: Adult Hospital Medicine (1) Anemia Anemia type: unspecified type Qualified Code(s): D64.9 - Anemia, unspecified
--- NOTE | 2022-11-13 10:42 | Palliative Care Consultation ---
Date of Consultation November 13, 2022 Assessment & Plan (1) Palliative care encounter: I talked with Mrs. Renee about her understanding of her illness. She is very much aware that she is likely to have additional strokes. I asked her what worried her most about that and she told me that she wanted to be at home. She lives with her who has his own health problems and recently had an ankle fracture. We talked about how she and her were managing at home and she felt that they were doing ok. She told me multiple times that she wants to get home, work with her prosthesis and be able to get around better. Her tells me that she has not used the prosthesis since she was discharged from rehab after her amputation. We also talked about her returning to the hospital if she had another stroke and she told me that she didn't really care for that idea but that is what she would want to do. We discussed whether there were limits to what she would want for treatment in the future and she did not feel that there were. I did speak with her on the phone and he told me that they have discussed goals for care in the past and that she would not want to "be a vegetable". She would not want resuscitation and is currently DNR. He also felt that she would want to return to the hospital if needed. He tells me that he has had to set some limits in terms of what he can do to assist her out of concern for his own health but that he would want her to return home. He is agreeable to short term rehab if needed. He is hopeful that would allow her to be more independent. He tells me that he would not want her to be "in a home" and would want her to be at home. He did note that if she had a significant stroke and were totally debilitated "I would just want her not to have pain and be comfortable." History of Present Illness Reason for Consultation: goals of care Requesting Physician: Dr. Antonio Attending Physician: Timur Lay DO History of Present Illness 67 yo lady with history of prior CVAs and significant vascular disease. She has PAD with history of right AKA. She has occlusion of left internal carotid artery and was hospitalized last month with right internal carotid stenosis and TCAR. At that time, she presented with loss of vision. She was discharged home with home nursing and physical therapy. She was readmitted with facial droop, decreased responsiveness and difficulty eating and drinking. She was found to have OMA stet occlusion and new infarct of right subinsular cortex. She has had some dysarthria but speech is generally intelligible. She denies pain or dyspnea. She is currently on 2L NC and tells me that she does not wear oxygen at home. She has some insight into her illness and is able to tell me that she had another stroke. Allergies Allergy/AdvReac Type Severity Reaction Status Date / Time No Known Allergies Allergy Mild Verified 11/11/22 16:44 Home Medications Medication Instructions Recorded Confirmed Type tramadol 50 mg tablet 50 mg PO Q6H PRN pain #60 tabs 11/02/22 11/11/22 Rx aspirin 81 mg tablet,delayed 81 mg PO QAM #90 tabs 11/09/22 11/11/22 Rx release carvedilol 3.125 mg tablet 3.125 mg PO BIDM #180 tabs 11/09/22 11/11/22 Rx clopidogrel 75 mg tablet 75 mg PO QAM #90 tabs 11/09/22 11/11/22 Rx losartan 25 mg tablet 12.5 mg PO QAM #45 tabs 11/09/22 11/11/22 Rx rosuvastatin 20 mg tablet 20 mg PO QAM #90 tabs 11/09/22 11/11/22 Rx Patient History Medical History CAD (coronary artery disease) Remote LAD stent, repeat cath 2004 with 20% in stent restenosis Carotid artery disease Neck CTA 07/10/22- Status post right carotid endarterectomy. Luminal irregularity and narrowing of the proximal to mid cervical right internal carotid artery with approximate 70% stenosis which has progressed since prior CTA. 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 Occlusion with distal reconstitution versus severe stenosis of the right external carotid artery. Carotid stent occlusion Chronic anemia COPD (chronic obstructive pulmonary disease) Per records, pt denies CVA (cerebral vascular accident) 04/2021, residual memory issues + right hand weakness, no neurologist GERD (gastroesophageal reflux disease) Controlled History of GI bleed Hypertension Ischemic ulcer of right foot [facility]s with [facility] Left renal mass Left side, concern for RCC Pt unaware PAD (peripheral artery disease) S/p stent to right LE (February 2021) Bilateral iliac artery stenosis Poor historian S/P CVA Rectal mass Per records, pt unaware Vasculopathy Ventricular asystolia 2020, follows with [facility] cardio Surgical History 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) Right AKA (11/16/21): LMA#3 + PNB at [facility]. No issues noted per post-op anesthesia progress note. H/O exploratory laparotomy (01/22/21) Exploratory laparotomy, oversew perforated duodenal ulcer, abdominal washout. Dr. Craig 01/22/2021 H/O tubal ligation H/O vascular surgery 2 stents to right leg [facility] February 2021 History of colonoscopy History of esophagogastroduodenoscopy (EGD) (08/2021) gastritis w/ hemorrhage History of right-sided carotid endarterectomy (05/04/21) 30-40 sec chest compressions required during surgery for asystole - possible prior much shorter vagal episode in past as well S/P angioplasty (02/2021) distal SFA and [facility], RLE S/P peripheral artery angioplasty with stent placement (01/2021) RLE, iliac stent / SFA angioplasty S/P peripheral artery angioplasty with stent placement (11/2021) [facility]/Stent L SFA Status post bilateral carotid endarterectomy [place] teeth extracted Family History Mother , age 70 of lung cancer Diabetes Lung cancer Hypertension Father , age 52 of complications of vascular surgery. Lung cancer PAD (peripheral artery disease) Denies family history of Ovarian cancer Prostate cancer Myocardial infarction Breast cancer Colorectal cancer Social History Smoking Status: Current every day smoker Tobacco Type: Cigarettes Age Started Using Tobacco: 23; packs per day: 1; Cigarettes Per Day: 1 PPD x 35 years; Second Hand Exposure: No; Hx Alcohol Use: Yes Alcohol type: beer Alcohol Intake Frequency: 4 or More x per/Week Alcohol Intake Frequency Comment: 2-3 beers daily or more Hx Substance Use: No Preferred Language: Burkinan Communication Ability: Impaired Visual Impairment: Limited Hearing Ability: Normal Twisting Frame Changer Required: No Beliefs That Will Affect Care: None marital status: Current Living Situation: Spouse current occupational status: retired current occupation: [employer]- stopped work after AKA How many Children do You have: 2 Other Information That Helps Us Care for You: No Feels Safe at Home: Yes Safety Concerns: Feels Safe At This Time Childhood Exposure to Second-Hand Smoke: Yes caffeine: Yes during the past year weight has: remained stable Dental Care, Regularly: No Physical Activity Frequency: Does not Exercise Physical Activity Frequency Comment: on feet at work all day Seatbelt Use: always Sunscreen Use: No Assistive Devices: Wheelchair Review of Systems Review of Systems: ESAS Pain 0/3 Dyspnea 0/3 Nausea 0/3 Fatigue 2/3 Drowsiness 0/3 PPS 40% Physical Exam Constitutional: no acute distress ENMT: Mouth: oral mucous membranes not dry Respiratory: normal respiratory effort; no labored breathing Cardiovascular: Rate/Rhythm: regular rate and regular rhythm Musculoskeletal: muscle atrophy right AKA Skin: warm and dry Neurologic: moves all extremities and awake; not confused Results & Data ([facility]) Vital Signs (Past 12 Hours) Vital Signs Temp Pulse Pulse Resp BP BP Pulse Ox 11/13/22 07:45 11/13/22 07:13 98.6 F 91 H 15 184/82 H 184/88 H 98 11/13/22 03:00 97.5 F L 89 15 183/97 H 11/12/22 23:00 83 11/12/22 23:15 91 H 18 194/96 H 206/102 H O2 Del Method O2 Flow Rate 11/13/22 07:45 Nasal Cannula 2 11/13/22 07:13 Nasal Cannula 2 11/13/22 03:00 Nasal Cannula 2 11/12/22 23:00 11/12/22 23:15 PG Care Time/CCT Total # of Minutes Spent Total Time Spent: 74 Total Time Spent with Patient: Total time spent is greater than 50% in coordination of care (as documented) at patient's floor/unit and/or counseling patient: goals of care, code status, patient and family education and support. [id number] Coding Level of Care Code INP/OBS CONSULT LVL 4, 60 MIN Diagnoses Palliative care encounter Z51.5
--- NOTE | 2022-11-13 13:13 | Pharmacy Report ---
- Date of Service November 13, 2022 - Pharmacy CVA/TIA Medication Review Medications to Prevent Stroke handout has been added to the patients discharge packet. Antiplatelet(s) * Clopidogrel 75 mg + ASA 81 mg Cholesterol * High intensity statin: rosuvastatin 20 mg daily DVT Prophylaxis * Pharmacologic DVT prophylaxis deferred due to worsening anemia/ fecal occult blood Therapeutic Anticoagulation * No history of Afib/Aflutter noted * Recommendations for additional outpatient cardiac monitoring Type 2 Diabetes * Patient does not have T2DM
[2022-11-13] MEDS: PANTOprazole 40 MG in SYRINGE 0 ML IV SCH (13:36)
--- NOTE | 2022-11-13 13:38 | Fluoroscopy Report ---
FL video swallow CLINICAL HISTORY: 67 years-old Female with r/o aspiration. Dysphasia TECHNIQUE: Video fluoroscopic evaluation of swallowing was performed in the AP and lateral projection s by the speech pathology staff. The patient is fed thin liquid, mildly thick, pudding and cracker wi th paste consistencies FLUOROSCOPY TIME: 2.3. COMPARISON STUDY: CTA neck 11/11/2022 FINDINGS: There is normal hyoid excursion and epiglottic deflection. No significant penetration or as piration identified. Swallowing function is within normal limits. Osteophytic spurring of the cervica l spine with multilevel intervertebral disc space narrowing. Carotid stent incidentally noted. IMPRESSION: 1. No aspiration identified. 2. Please see the speech pathologist report for detailed findings and recommendations. ACT 112: Negative or not required by law. Electronically signed by: Earle Rankin M.D. 11/13/2022 1:36 PM
[2022-11-13] MEDS ORDERED: POTASSIUM CHLORIDE CRTAB 20 MEQ TABCR PO ONE (17:00)
--- NOTE | 2022-11-13 18:45 | Billing Data ---
Date of Service November 13, 2022 Coding Level of Care Code 31593 SUB INP/OBS CARE MIN
[2022-11-14] MEDS: LACTATED RINGER'S 1,000 ML IV SCH ×3 (06:47→17:00)
[2022-11-14 07:01] LABS: Basophils # (auto) 0.07 K/uL (0-0.2); Basophils % (auto) 1.1 %; Eosinophils # (auto) 0.12 K/uL (0-0.50); Eosinophils % (auto) 1.9 %; Hematocrit (blood only) 27.6 % (34.1-44.9); Hemoglobin 8.3 g/dl (12.0-16.0); Immature Granulocytes # (auto) 0.01 K/uL (0.00-0.02); Immature Granulocytes % (auto) 0.2 %; Lymphocytes # (auto) 1.23 K/uL (1.2-3.4); Mean Corpuscular Hemoglobin 23.2 pg (25.0-34.0); Mean Corpuscular Hgb Conc 30.1 g/dL (32.0-36.0); Mean Corpuscular Volume 77.1 fL (80.0-100.0); Mean Platelet Volume 8.9 fL (9.4-12.3); Monocytes # (auto) 0.59 K/uL (0.24-0.82); Monocytes % (auto) 9.1 %; Neutrophils # (auto) 4.45 K/uL (1.4-6.5); Neutrophils % (auto) 68.7 %; Platelet Count 318 K/uL (130-400); Red Blood Count 3.58 M/uL (3.93-5.22); White Blood Count 6.47 K/ul (4.8-10.8)
[2022-11-14 07:43] LABS: BUN Creatinine Ratio 22.2 (10-20); Calcium 8.9 mg/dl (8.5-10.1); Creatinine Clr Calc Pharmacy 98.6 ml/min; Est GFR (African American) 121.9 ml/min; Est GFR (Non-African American) 105.1 ml/min; Magnesium 1.7 mg/dl (1.7-2.4)
[2022-11-14] MEDS: carvediloL 3.125 MG TAB PO SCH ×2 (07:44→17:00)
[2022-11-14] MEDS: ASPIRIN 81 MG ECTAB PO SCH (07:45)
[2022-11-14] MEDS: ROSUVASTATIN CALCIUM 20 MG TAB PO SCH (07:45)
[2022-11-14] MEDS: CLOPIDOGREL BISULFATE 75 MG TAB PO SCH (07:45)
[2022-11-14] MEDS: LOSARTAN POTASSIUM 25 MG TAB PO SCH (07:45)
[2022-11-14] MEDS: NICOTINE 21 MG/24 HR TDSY TD SCH (07:49)
--- NOTE | 2022-11-14 09:57 | Discharge Summary ---
Date of Service November 14, 2022 Unable to cancel documentdischarged 11/17please see discharge done by Dr. Ospina/myself and disregard this document thank you Admission HPI Per Admitting Provider Daniela Bellamy is a 67 year old female who presents to the ER as a stroke alert due to slurred speech. Unable to get much history from patient other than she was eating today and choked on some food so her called for an ambulance. Discussed history with her over the phone. He reports he hasn't been able to understand her well for the last three days. Having increasing slurred speech. Today she was slobbering more, much more incoherent, choking on food and had a left sided facial droop so called ambulance. She was also holding her right arm as if she was in pain although unable to verbalize whether she was in pain. He reports she was taking her medications as far as he is aware but did not stand over her to make sure. Daniela was recently admitted from October 31 to 2022 due to vision loss. She was diagnosed with subcentimeter acute infarcts noted in the central semiovale watershed distribution of the right greater than left frontal parietal lobes. She was also noted to have complete occlusion of her recently placed right ICA stent via TCAR procedure on October 10 along with a chronic left common and ICA occlusion. She was seen by vascular surgery and recommended dual antiplatelets with no surgical intervention at that time recommended. The patient was a telestroke alert in the Emergency department. No TNK was recommended. CT head was concerning for interval development of a new hypodensity in the right compatible with new infarct. Fecal occult blood was positive. She was referred to medicine for admission and ongoing management of acute stroke. Admission Exam Per Admitting Provider Constitutional: WD/WN, vitals as above Eyes: PERRL, conjunctivae normal, anicteric sclerae (although difficult exam as patient kept closing her eyes) Respiratory: normal respiratory effort, lungs clear to auscultation Cardiovascular: RRR, no murmur, no edema Gastrointestinal (Abdomen): normal bowel sounds, soft, nontender, no hepatosplenomegaly Skin: no rashes, warm and dry Neurologic: awake; no focal motor deficits Speech / Cognition: + abnormal speech (Dysarthria) and + expressive aphasia; no receptive aphasia Motor/Senso ry: no tremor, no pronator drift and no sensory deficit Cranial Nerves: PERRL (see above), EOM intact bilaterally, tongue midline, able to rotate head bilaterally, able to elevate shoulders bilaterally, no nystagmus and symmetric palate elevation; + abnormal facial strength (left facial droop) Coordination: normal [id number] test Principal Diagnosis Recurrent stroke Discharge Exam GENERAL: A&Ox3. NAD. CHEST/LUNGS: CTAB A/P. No crackles, wheezes, rales, rhonchi. HEART: RRR. No m/g/r. No carotid bruits. ABDOMEN: NT/ND, soft EXTREMITIES: No cyanosis, no clubbing, no edema SKIN: Warm and dry. No rashes or lesions. NEUROLOGIC: Slurred speech. Able to move all 4 extremities equally. No facial droop noted. Discharge Data Allergies Allergy/AdvReac Type Severity Reaction Status Date / Time No Known Allergies Allergy Mild Verified 11/11/22 16:44 Consultations 11/11/22 15:39 ED Decision to Admit Stat 11/11/22 21:08 Consult Palliative Care Routine 11/12/22 12:16 Consult Neurology Routine Ordered Studies 11/11/22 14:04 CT angio head w con Stat CT angio neck with con Stat CT head/brain wo con Stat 11/12/22 09:08 MR brain wo con Routine 11/13/22 13:00 Fluoro video [FL video swallow] Routine Hospital Course (1) Acute CVA (cerebrovascular accident): Daniela Bellamy is a 67-year-old female with past medical history of CVA, Right ICA occlusion s/p stent, known left carotid occlusion, PAD s/p stent to RLE, anemia, HTN, COPD who presented due to concerns of slurred speech, facial droop, choking on food. Admitted for stroke workup. Recurrent strokes: -Brain MRI- several small foci of restricted diffusion within the bilateral centrum semiovale (right greater than left) in the right subinsular cortex consistent with acute to subacute infarcts -LDL, A1C normal -TTE unremarkable -PT/OT ongoing -Speech evaluation- easy to chew diet -Palliative care consulted- pt would very much like to return home -Neurology consulted -Continue rosuvastatin, DAPT- aspirin 81 mg, clopidogrel 75 mg -Recommend outpatient cardiac monitoring for potential atrial fibrillation thromboembolism -Permissive hypertension- goal SBP 150, MAP 90-95 -Resumed home losartan 12.5 mg on 11/13 given SBP elevated 180+ -Unfortunately she does have a poor prognosis, we discussed goals of care today and pt would like to return home -Discharged home today with home health services Anemia with positive FOBT -Concerning for GI bleed -Not EGD or colonoscopy candidate at present -Continue pantoprazole 40mg IV daily -Monitor H&H -- transfuse if Hgb < 7 -Hgb 8.3 stable -If Hgb downtrends, consider GI consult for possible bleed in the setting of DAPT Iron deficiency anemia: -With low iron, & ferritin, unsaturated IBC elevated -Gave Venofer 300mg x 1 -- recommend monitor in outpatient setting -Monitor H&H as above Hypertension: -Continue losartan and carvedilol Carotid stent occlusion: -Right ICA stent via TCAR procedure on 10/10/22 -Found to be occluded earlier this month -No surgical intervention recommended per vascular note from 11/01 Left carotid artery occlusion: -Noted -Vacular surgery aware, no surgery recommended PAD: -S/p stent to right LE (February 2021) -Bilateral iliac artery stenosis -Continue dual antiplatelet therapy with aspirin 81 mg, clopidogrel 75 mg -Continue rosuvastatin 20 mg VTE prophylaxis - given fecal occult blood with anemia and dual antiplatelet therapy will defer any further anticoagulation at this time Diet - Regular, easy to chew per speech evaluation Disposition - Discharged home with home health services CODE STATUS: DNR/DNI (2) Occult blood positive stool: (3) Anemia: (4) Carotid stent occlusion: (5) Left carotid artery occlusion: (6) PAD (peripheral artery disease): (7) Above knee amputation of right lower extremity: Total Time Total Time Spent Total Time Spent (In Minutes): 30 Discharge Plan Discharge Items Patient Disposition: Transfer Inpatient Rehab Fac Reason For Visit: ACUTE CVA Discharge Diagnosis: Stroke Activity: Per Instructions section Non-emergency contact: Primary Care Provider and Neurologist Call non-emergency contact if: you have any medication questions and your symptoms worsen Follow-up/Referrals: Go Landeros CRNP [Primary Care Provider] - 11/21/22 8:20 am Quinton Benjamin MD [Physician] - 01/16/23 11:00 am (will see PA-C Sexton) Diet: Regular Addtl Attending Provider Instructions: You were admitted to the hospital for a stroke. The blood supply in your brain was damaged, which resulted in your symptoms of facial droop and slurred speech. This improved and you are on the right medications to reduce the risk of future strokes. You were discharged to [facility], which is intended to help you regain your strength and mobility. A discharge summary will be sent to your primary care physician to ensure continuity of care. Please bring this discharge summary with you to your next office appointment so that your provider can review it at that time. Your primary care physician will help set up a heart monitor which you will wear for approximately 1 month to measure your heart rhythm and examine if this may be the cause of your strokes. Follow-up appointments: Make a follow-up appointment with your PCP within the next week. It is very important that you follow up with them shortly after discharge from the hospital. We have also requested a follow up with neurology. Keep all your follow-up appointments as already scheduled. If you cannot make an appointment, notify your provider. Medications: No new chnages Your medication list has been reviewed and reconciled upon discharge to ensure accuracy and continuity of care. An updated list of all your medications is included with your hospital discharge paperwork. Please review this list closely, and make note of any changes. Take your medications as instructed; do not skip a dose of your medicines. Make sure all of your doctors know every medicine you are taking (including bemz-cwn-haohcxi medicines, vitamins, and supplements). Call your primary care provider before taking any new medicines (including roey-rbj-tukcyrc medicines, vitamins, and supplements), because some of these may interact with your current medications, or may make your symptoms worse. Tell your primary care provider if you cannot afford your medications. CONTACT YOUR PRIMARY CARE PROVIDER if you experience any of the following: Weakness Numbness Vision change Dizziness Headache Difficulty following your treatment plan, or difficulty taking medications CALL 911 OR GO TO THE EMERGENCY DEPARTMENT if you experience any of the following: Sudden, severe abdominal pain or nausea/vomiting Severe chest pain, or chest pain that radiates (moves) to your jaw or arm Sudden, severe shortness of breath or difficulty breathing Thank you for allowing us to participate in your care. Addtl Children'S Attendant Provider Instructions: Daniela Bellamy is a 67-year-old female with past medical history of CVA, Right ICA occlusion s/p stent, known left carotid occlusion, PAD s/p stent to RLE, anemia, HTN, COPD who presented due to concerns of slurred speech, facial droop, choking on food. Admitted for stroke workup. Recurrent strokes: -Brain MRI - several small foci of restricted diffusion within the bilateral centrum semiovale (right greater than left) in the right subinsular cortex consistent with acute to subacute infarcts -LDL, A1C normal; TTE unremarkable -Speech evaluation- easy to chew diet -Neurology consulted -Continue losartan, rosuvastatin, DAPT- aspirin, clopidogrel 75 mg -Recommend outpatient cardiac monitoring for potential atrial fibrillation thromboembolism -Permissive hypertension- goal SBP 150, MAP 90-95 -Palliative care consulted- pt would very much like to return home -Discussed goals of care earlier in stay and pt would like to return home. However, her understandably feels he cannot take care of her at home and she is very weak. -PT/OT recommend inpatient rehab, CM aiding. Anemia with positive FOBT -Possible slow-oozing GIB based on DAPT, Hgb on arrival -Not EGD or colonoscopy candidate at present -Continue pantoprazole 40mg b.i.d. -Monitor H&H -- transfuse if Hgb < 7 -- has been stable on multiple checks Iron deficiency anemia: -With low iron, & ferritin, unsaturated IBC elevated -Gave Venofer 300mg x 1 -- recommend monitor and possible further dosing in outpatient setting -Monitor H&H as above Hypertension: -Continue losartan and carvedilol Carotid stent occlusion: -Right ICA stent via TCAR procedure on 10/10/22 -Found to be occluded earlier this month -No surgical intervention recommended per vascular note from 11/01 Left carotid artery occlusion: -Noted -Vacular surgery aware, no surgery recommended PAD: -S/p stent to right LE (February 2021) -Bilateral iliac artery stenosis -Continue dual antiplatelet therapy with aspirin 81 mg, clopidogrel 75 mg -Continue rosuvastatin 20 mg VTE prophylaxis - given fecal occult blood with anemia and dual antiplatelet therapy will defer any further anticoagulation at this time Diet - Regular, easy to chew per speech evaluation CODE STATUS: DNR/DNI Pending Studies at Discharge: No Stand-Alone Forms: My [facility] [employer], Medications to Prevent Stroke Skilled Items Patient informed of condition?: Yes DNR: Yes Discharge Level of Care: Acute rehab Communicable Disease: No Discharge Prognosis: Improving Lines: None Urinary Catheter: No Medications and DC Order Prescriptions: Continued tramadol 50 mg tablet 50 mg PO Q6H PRN (Reason: pain) Qty: 60 0RF aspirin 81 mg tablet,delayed release (DR/EC) 81 mg PO QAM Qty: 90 3RF carvedilol 3.125 mg tablet 3.125 mg PO BIDM Qty: 180 3RF Rx Instructions: must administer with a meal/food clopidogrel 75 mg tablet 75 mg PO QAM Qty: 90 3RF losartan 25 mg tablet 12.5 mg PO QAM Qty: 45 1RF rosuvastatin 20 mg tablet 20 mg PO QAM Qty: 90 3RF Discharge Orders: Discharge Order (Routine); Ordered 11/17/22 Ordered By: Timur Ospina Admission Data Admit Date/Time: 11/11/22 15:53 Attending Provider: Timur Lay Admit Provider: Brayden Antonio Primary Care Provider: Go Landeros Other Providers: Mera Mike ; [facility] ; Brayden Antonio ; Dahlai Chávez ; Quinton Benjamin ; [facility] ; [facility] Other Interventions: Discharge Summary Assessment (RN) Last Done: 11/17/22 14:54 Resident Activity Tracking Resident Involvement: Resident Care Provided Care Provided: Adult Hospital Medicine
[2022-11-14] MEDS: PANTOprazole 40 MG in SYRINGE 0 ML IV SCH (11:00)
[2022-11-14] MEDS ORDERED: STROKE PATIENT DISCHARGE STA (11:00)
--- NOTE | 2022-11-14 17:06 | Hospitalist Progress Note ---
Date of Service November 14, 2022 Assessment & Plan (1) Acute CVA (cerebrovascular accident): Plan: Daniela Bellamy is a 67-year-old female with past medical history of CVA, Right ICA occlusion s/p stent, known left carotid occlusion, PAD s/p stent to RLE, anemia, HTN, COPD who presented due to concerns of slurred speech, facial droop, choking on food. Admitted for stroke workup. Recurrent strokes: -Brain MRI- several small foci of restricted diffusion within the bilateral centrum semiovale (right greater than left) in the right subinsular cortex consistent with acute to subacute infarcts -LDL, A1C normal -TTE unremarkable -PT/OT ongoing -Speech evaluation- easy to chew diet -Palliative care consulted- pt would very much like to return home -Neurology consulted -Continue rosuvastatin, DAPT- aspirin 81 mg, clopidogrel 75 mg -Recommend outpatient cardiac monitoring for potential atrial fibrillation thromboembolism -Permissive hypertension- goal SBP 150, MAP 90-95 -Resumed home losartan 12.5 mg on 11/13 given SBP elevated 180+ -Unfortunately she does have a poor prognosis, we discussed goals of care today and pt would like to return home. However, her feels he cannot take care of her at home. We will pursue rehab placement. Anemia with positive FOBT -Concerning for GI bleed -Not EGD or colonoscopy candidate at present -Continue pantoprazole 40mg IV daily -Monitor H&H -- transfuse if Hgb < 7 -Hgb 8.3 stable -If Hgb downtrends, consider GI consult for possible bleed in the setting of DAPT Iron deficiency anemia: -With low iron, & ferritin, unsaturated IBC elevated -Gave Venofer 300mg x 1 -- recommend monitor in outpatient setting -Monitor H&H as above Hypertension: -Continue losartan and carvedilol Carotid stent occlusion: -Right ICA stent via TCAR procedure on 10/10/22 -Found to be occluded earlier this month -No surgical intervention recommended per vascular note from 11/01 Left carotid artery occlusion: -Noted -Vacular surgery aware, no surgery recommended PAD: -S/p stent to right LE (February 2021) -Bilateral iliac artery stenosis -Continue dual antiplatelet therapy with aspirin 81 mg, clopidogrel 75 mg -Continue rosuvastatin 20 mg VTE prophylaxis - given fecal occult blood with anemia and dual antiplatelet therapy will defer any further anticoagulation at this time Diet - Regular, easy to chew per speech evaluation Disposition - placement search ongoing CODE STATUS: DNR/DNI (2) Occult blood positive stool: (3) Anemia: (4) Carotid stent occlusion: (5) Left carotid artery occlusion: (6) PAD (peripheral artery disease): (7) Above knee amputation of right lower extremity: Admission and Anticipated Discharge Date Admission Date: November 11, 2022 Supervising Physician Co-Signing Physician Notes I personally examined the patient and verified all finney points of history and exam, discussed case, and agree with decision making with Dr Davenport. no new complaints. doesn't feel he can care for her at home currently. Vitals noted, in general she is awake and alert pleasant no distress. HEENT normocephalic atraumatic mucous membranes moist. Slurred speech. Cough after eating. Breathing unlabored no accessory muscle use good effort but she does show frequent rhonchi in the right.. Skin shows no rashes no pallor or icterus. Severe, essentially end-stage cerebrovascular diseasemedication management/supportive care. Home is her goal. Unfortunately sounds like she may need rehab first given her 's ability to take care of her being somewhat limited. Permissive hypertension. Otherwise as above. Probable aspirationno real evidence of distress/pneumonitis/pneumonia. Speech therapy has seen, recommended ongoing speech therapy as an outpatient. Serial exams, supportive care. Otherwise as above Subjective No acute events overnight. Pt states she feels well overall. Still endorsing some mild fatigue and difficulty with speech but this is improving. Denies any focal weakness or numbness at this time. Denies dysphagia, tolerating meals well. Review of Systems Review of Systems: Per HPI Physical Exam Physical Exam: GENERAL: A&Ox3. NAD. CHEST/LUNGS: CTAB A/P. No crackles, wheezes, rales, rhonchi. HEART: RRR. No m/g/r. No carotid bruits. ABDOMEN: NT/ND, soft EXTREMITIES: No cyanosis, no clubbing, no edema SKIN: Warm and dry. No rashes or lesions. NEUROLOGIC: Slurred speech. Able to move all 4 extremities equally. No facial droop noted. Results & Data Results & Data ([facility]) Vital Signs (Past 12 Hours) Vital Signs Temp Pulse Resp BP BP Pulse Ox O2 Del Method 11/14/22 16:53 36.8 C 83 16 188/92 H 96 Room Air 11/14/22 12:27 36.6 C 90 16 134/66 93 Room Air 11/14/22 11:10 37.0 C 85 20 184/82 H 154/82 H 90 11/14/22 08:00 Nasal Cannula 11/14/22 06:52 37.0 C 85 20 154/82 H 90 Room Air O2 Flow Rate 11/14/22 16:53 11/14/22 12:27 11/14/22 11:10 11/14/22 08:00 2 11/14/22 06:52 Resident Activity Tracking Resident Involvement: Resident Care Provided Care Provided: Adult Hospital Medicine (1) Anemia Anemia type: unspecified type Qualified Code(s): D64.9 - Anemia, unspecified
--- NOTE | 2022-11-14 18:39 | Billing Data ---
Date of Service November 14, 2022 Coding Level of Care Code 14217 SUB INP/OBS CARE MIN
[2022-11-15] MEDS: LACTATED RINGER'S 1,000 ML IV SCH (03:13)
[2022-11-15] MEDS: NICOTINE 21 MG/24 HR TDSY TD SCH (08:22)
[2022-11-15] MEDS: CLOPIDOGREL BISULFATE 75 MG TAB PO SCH (08:23)
[2022-11-15] MEDS: ASPIRIN 81 MG ECTAB PO SCH (08:23)
[2022-11-15] MEDS: ROSUVASTATIN CALCIUM 20 MG TAB PO SCH (08:23)
[2022-11-15] MEDS: LOSARTAN POTASSIUM 25 MG TAB PO SCH (08:23)
[2022-11-15] MEDS: carvediloL 3.125 MG TAB PO SCH ×2 (08:23→15:47)
--- NOTE | 2022-11-15 09:32 | Hospitalist Progress Note ---
Date of Service November 15, 2022 Assessment & Plan (1) Acute CVA (cerebrovascular accident): Plan: Daniela Bellamy is a 67-year-old female with past medical history of CVA, Right ICA occlusion s/p stent, known left carotid occlusion, PAD s/p stent to RLE, anemia, HTN, COPD who presented due to concerns of slurred speech, facial droop, choking on food. Admitted for stroke workup. Recurrent strokes: -Brain MRI- several small foci of restricted diffusion within the bilateral centrum semiovale (right greater than left) in the right subinsular cortex consistent with acute to subacute infarcts -LDL, A1C normal -TTE unremarkable -PT/OT ongoing -Speech evaluation- easy to chew diet -Palliative care consulted- pt would very much like to return home -Neurology consulted -Continue losartan, rosuvastatin, DAPT- aspirin, clopidogrel 75 mg -Recommend outpatient cardiac monitoring for potential atrial fibrillation thromboembolism -Permissive hypertension- goal SBP 150, MAP 90-95 -Unfortunately she does have a poor prognosis, we discussed goals of care today and pt would like to return home. However, her feels he cannot take care of her at home. We will pursue rehab placement. Anemia with positive FOBT -Concerning for GI bleed -Not EGD or colonoscopy candidate at present -Continue pantoprazole 40mg IV daily -Monitor H&H -- transfuse if Hgb < 7 -Hgb 8.3 stable as of 11/14 -If Hgb downtrends, consider GI consult for possible bleed in the setting of DAPT Iron deficiency anemia: -With low iron, & ferritin, unsaturated IBC elevated -Gave Venofer 300mg x 1 -- recommend monitor in outpatient setting -Monitor H&H as above Hypertension: -Continue losartan and carvedilol Carotid stent occlusion: -Right ICA stent via TCAR procedure on 10/10/22 -Found to be occluded earlier this month -No surgical intervention recommended per vascular note from 11/01 Left carotid artery occlusion: -Noted -Vacular surgery aware, no surgery recommended PAD: -S/p stent to right LE (February 2021) -Bilateral iliac artery stenosis -Continue dual antiplatelet therapy with aspirin 81 mg, clopidogrel 75 mg -Continue rosuvastatin 20 mg VTE prophylaxis - given fecal occult blood with anemia and dual antiplatelet therapy will defer any further anticoagulation at this time Diet - Regular, easy to chew per speech evaluation Disposition - placement search ongoing CODE STATUS: DNR/DNI (2) Occult blood positive stool: (3) Anemia: (4) Carotid stent occlusion: (5) Left carotid artery occlusion: (6) PAD (peripheral artery disease): (7) Above knee amputation of right lower extremity: Admission and Anticipated Discharge Date Admission Date: November 11, 2022 Supervising Physician Co-Signing Physician Notes I personally examined the patient and verified all finney points of history and exam, discussed case, and agree with decision making with Dr Davenport. resting comfortably Vitals noted, resting comfortably no distress. Breathing unlabored no accessory muscle use good effort. Skin shows no rashes no pallor or icterus. Neuro without focal deficits. Severe, essentially end-stage cerebrovascular diseasemedication management/supportive care. Short-term goal for rehab. Long-term goal for home. Stable for rehab once available. Probable aspirationno real evidence of distress/pneumonitis/pneumonia. Speech therapy has seen, recommended ongoing speech therapy as an outpatient. Serial exams, supportive care. No hypoxia or respiratory distress today. Otherwise as above Subjective No acute events overnight. Pt less interactive today. She did not indicate any acute distress but appeared more tired and weak. Review of Systems Review of Systems: Per HPI Physical Exam Physical Exam: GENERAL: responsive to commands, less interactive CHEST/LUNGS: CTAB A/P. No crackles, wheezes, rales, rhonchi. HEART: RRR. No m/g/r. No carotid bruits. ABDOMEN: NT/ND, soft EXTREMITIES: No cyanosis, no clubbing, no edema SKIN: Warm and dry. No rashes or lesions. NEUROLOGIC: Reduced, slurred speech. Able to move all 4 extremities equally. No facial droop noted. Results & Data Results & Data ([facility]) Vital Signs (Past 12 Hours) Vital Signs Temp Pulse Resp BP Pulse Ox O2 Del Method 11/15/22 08:00 Room Air 11/15/22 07:27 36.8 C 66 17 157/85 H 93 Room Air 11/15/22 05:15 164/82 H 11/14/22 23:18 36.9 C 87 18 170/76 H 92 Room Air Resident Activity Tracking Resident Involvement: Resident Care Provided Care Provided: Adult Hospital Medicine (1) Anemia Anemia type: unspecified type Qualified Code(s): D64.9 - Anemia, unspecified
[2022-11-15] MEDS: PANTOprazole 40 MG in SYRINGE 0 ML IV SCH (11:36)
--- NOTE | 2022-11-15 17:27 | Billing Data ---
Date of Service November 15, 2022 Coding Level of Care Code 87856 SUB INP/OBS CARE
[2022-11-16] MEDS: carvediloL 3.125 MG TAB PO SCH ×2 (08:41→17:26)
[2022-11-16] MEDS: CLOPIDOGREL BISULFATE 75 MG TAB PO SCH (08:41)
[2022-11-16] MEDS: NICOTINE 21 MG/24 HR TDSY TD SCH (08:41)
[2022-11-16] MEDS: ASPIRIN 81 MG ECTAB PO SCH (08:41)
[2022-11-16] MEDS: LOSARTAN POTASSIUM 25 MG TAB PO SCH (08:41)
[2022-11-16] MEDS: ROSUVASTATIN CALCIUM 20 MG TAB PO SCH (08:42)
--- NOTE | 2022-11-16 10:25 | Hospitalist Progress Note ---
Date of Service November 16, 2022 Assessment & Plan (1) Acute CVA (cerebrovascular accident): Plan: Daniela Bellamy is a 67-year-old female with past medical history of CVA, Right ICA occlusion s/p stent, known left carotid occlusion, PAD s/p stent to RLE, anemia, HTN, COPD who presented due to concerns of slurred speech, facial droop, choking on food. Admitted for stroke workup. Recurrent strokes: -Brain MRI- several small foci of restricted diffusion within the bilateral centrum semiovale (right greater than left) in the right subinsular cortex consistent with acute to subacute infarcts -LDL, A1C normal -TTE unremarkable -PT/OT ongoing -Speech evaluation- easy to chew diet -Palliative care consulted- pt would very much like to return home -Neurology consulted -Continue losartan, rosuvastatin, DAPT- aspirin, clopidogrel 75 mg -Recommend outpatient cardiac monitoring for potential atrial fibrillation thromboembolism -Permissive hypertension- goal SBP 150, MAP 90-95 -Unfortunately she does have a poor prognosis, we discussed goals of care earlier in stay and pt would like to return home. However, her feels he cannot take care of her at home and she is very weak. We will pursue rehab placement, search ongoing. Anemia with positive FOBT -Concerning for GI bleed -Not EGD or colonoscopy candidate at present -Continue pantoprazole 40mg IV daily -Monitor H&H -- transfuse if Hgb < 7 -Hgb 8.3 stable as of 11/14 -If Hgb downtrends, consider GI consult for possible bleed in the setting of DAPT Iron deficiency anemia: -With low iron, & ferritin, unsaturated IBC elevated -Gave Venofer 300mg x 1 -- recommend monitor in outpatient setting -Monitor H&H as above Hypertension: -Continue losartan and carvedilol Carotid stent occlusion: -Right ICA stent via TCAR procedure on 10/10/22 -Found to be occluded earlier this month -No surgical intervention recommended per vascular note from 11/01 Left carotid artery occlusion: -Noted -Vacular surgery aware, no surgery recommended PAD: -S/p stent to right LE (February 2021) -Bilateral iliac artery stenosis -Continue dual antiplatelet therapy with aspirin 81 mg, clopidogrel 75 mg -Continue rosuvastatin 20 mg VTE prophylaxis - given fecal occult blood with anemia and dual antiplatelet therapy will defer any further anticoagulation at this time Diet - Regular, easy to chew per speech evaluation Disposition - placement search ongoing CODE STATUS: DNR/DNI (2) Occult blood positive stool: (3) Anemia: (4) Carotid stent occlusion: (5) Left carotid artery occlusion: (6) PAD (peripheral artery disease): (7) Above knee amputation of right lower extremity: Admission and Anticipated Discharge Date Admission Date: November 11, 2022 Supervising Physician Co-Signing Physician Notes I personally examined the patient and verified all finney points of history and exam, discussed case, and agree with decision making with Dr Davenport. resting comfortably, no complaints, awaiting placement Vitals noted, resting comfortably no distress. Breathing unlabored no accessory muscle use good effort. Skin shows no rashes no pallor or icterus. Neuro without focal deficits. Severe, essentially end-stage cerebrovascular diseasemedication management/supportive care. Short-term goal for rehab. Long-term goal for home. Stable for rehab once available, case management working on approval/options. Otherwise as above Subjective No acute events overnight. Pt more interactive today than day prior. She did not indicate any acute distress, understands she will go to rehab. Review of Systems Review of Systems: Per subjective Physical Exam Physical Exam: GENERAL: responsive to commands, less interactive CHEST/LUNGS: CTAB A/P. No crackles, wheezes, rales, rhonchi. HEART: RRR. No m/g/r. No carotid bruits. ABDOMEN: NT/ND, soft EXTREMITIES: No cyanosis, no clubbing, no edema SKIN: Warm and dry. No rashes or lesions. NEUROLOGIC: Reduced, slurred speech. Residual L sided weakness. No facial droop noted. Results & Data Results & Data ([facility]) Vital Signs (Past 12 Hours) Vital Signs Temp Pulse Resp BP Pulse Ox O2 Del Method 11/16/22 07:08 36.8 C 78 18 162/70 H 91 Room Air 11/15/22 23:00 36.9 C 85 20 157/83 H 93 Room Air Resident Activity Tracking Resident Involvement: Resident Care Provided Care Provided: Adult Hospital Medicine (1) Anemia Anemia type: unspecified type Qualified Code(s): D64.9 - Anemia, unspecified
[2022-11-16] MEDS: PANTOprazole 40 MG in SYRINGE 0 ML IV SCH (10:47)
--- NOTE | 2022-11-16 16:39 | Billing Data ---
Date of Service November 16, 2022 Coding Level of Care Code 82542 SUB INP/OBS CARE
--- NOTE | 2022-11-17 07:41 | Hospitalist Progress Note ---
Date of Service November 17, 2022 Assessment & Plan (1) Acute CVA (cerebrovascular accident): Plan: Daniela Bellamy is a 67-year-old female with past medical history of CVA, Right ICA occlusion s/p stent, known left carotid occlusion, PAD s/p stent to RLE, anemia, HTN, COPD who presented due to concerns of slurred speech, facial droop, choking on food. Admitted for stroke workup. Recurrent strokes: -Brain MRI - several small foci of restricted diffusion within the bilateral centrum semiovale (right greater than left) in the right subinsular cortex consistent with acute to subacute infarcts -LDL, A1C normal; TTE unremarkable -Speech evaluation- easy to chew diet -Neurology consulted -Continue losartan, rosuvastatin, DAPT- aspirin, clopidogrel 75 mg -Recommend outpatient cardiac monitoring for potential atrial fibrillation thromboembolism -Permissive hypertension- goal SBP 150, MAP 90-95 -Palliative care consulted- pt would very much like to return home -Unfortunately she does have a poor prognosis, we discussed goals of care earlier in stay and pt would like to return home. However, her understandably feels he cannot take care of her at home and she is very weak. - PT/OT recommend inpatient rehab, CM aiding. Anemia with positive FOBT -Possible slow-oozing GIB based on DAPT, Hgb on arrival -Not EGD or colonoscopy candidate at present -Continue pantoprazole 40mg b.i.d. -Monitor H&H -- transfuse if Hgb < 7 -- has been stable on multiple checks Iron deficiency anemia: -With low iron, & ferritin, unsaturated IBC elevated -Gave Venofer 300mg x 1 -- recommend monitor and possible further dosing in outpatient setting -Monitor H&H as above Hypertension: -Continue losartan and carvedilol Carotid stent occlusion: -Right ICA stent via TCAR procedure on 10/10/22 -Found to be occluded earlier this month -No surgical intervention recommended per vascular note from 11/01 Left carotid artery occlusion: -Noted -Vacular surgery aware, no surgery recommended PAD: -S/p stent to right LE (February 2021) -Bilateral iliac artery stenosis -Continue dual antiplatelet therapy with aspirin 81 mg, clopidogrel 75 mg -Continue rosuvastatin 20 mg VTE prophylaxis - given fecal occult blood with anemia and dual antiplatelet therapy will defer any further anticoagulation at this time Diet - Regular, easy to chew per speech evaluation Disposition - placement search ongoing CODE STATUS: DNR/DNI (2) Occult blood positive stool: (3) Anemia: (4) Carotid stent occlusion: (5) Left carotid artery occlusion: (6) PAD (peripheral artery disease): (7) Above knee amputation of right lower extremity: Admission and Anticipated Discharge Date Admission Date: November 11, 2022 Supervising Physician Co-Signing Physician Notes I personally examined the patient and verified all finney points of history and exam, discussed case, and agree with decision making with Dr Davenport. resting comfortably, no complaints, awaiting placement when I saw her earlier. Got rehab bed. See Dr. Ospina addendum for events just prior to discharge. Vitals noted, resting comfortably no distress. Breathing unlabored no accessory muscle use good effort. Skin shows no rashes no pallor or icterus. Neuro without new focal deficits. Severe, essentially end-stage cerebrovascular diseasemedication management/supportive care. Short-term goal for rehab. Long-term goal for home. Stable for rehab, allow for permissive hypertension. Verbally signed out the case to the rehab team given the nuance in her goal of trying to get stronger, but essentially to be able to go home with a palliative type mindset, as well as the high probability that she will suffer further TIA/CVA processes in the near futurebut as of discussion just prior to discharge would not want to return to the hospital for these. Otherwise as above Subjective No acute events overnight. Continues with PT and OT who both recommend rehab - agree. No issues reported. No pain. Some word finding difficulties continue. No n/v/d/CP/palpitations/SOB. Review of Systems Review of Systems: as per HPI Physical Exam Physical Exam: General: 67-year old female who is alert, oriented, and appears in no acute distress. Some dysarthria appreciated. HEENT: NCAT. - Eyes - Sclera are white, anicteric, and without injection. - Mouth - MMM - Neck - supple, no appreciable JVD Cardiac: Normal rate and regular rhythm; S1 and S2 present with no murmurs, rubs, or gallops. Pulmonary: Good respiratory effort with symmetric expansion of the chest. No use of accessory muscles. Lungs were clear to auscultation bilaterally with no crackles or wheezes. Abdominal: Normoactive bowel sounds. Abdomen was soft, nondistended, and non- tender to palpation. Extremities: Upper and lower extremities are warm and well perfused. Strength 4/5 on L, 4+/5 on R. No peripheral edema in the lower extremities bilaterally Results & Data Results & Data ([facility]) Vital Signs (Past 12 Hours) Vital Signs Temp Pulse Resp BP BP Pulse Ox O2 Del Method 11/17/22 00:00 Room Air 11/17/22 00:14 36.7 C 89 18 133/76 95 Room Air 11/16/22 22:08 36.9 C 90 19 180/96 H 93 Room Air 11/16/22 20:00 Room Air Resident Activity Tracking Resident Involvement: Resident Care Provided Care Provided: Adult Hospital Medicine (1) Anemia Anemia type: unspecified type Qualified Code(s): D64.9 - Anemia, unspecified
[2022-11-17] MEDS ORDERED: PANTOprazole 40 MG TAB PO SCH (09:00)
[2022-11-17] MEDS: CLOPIDOGREL BISULFATE 75 MG TAB PO SCH (09:21)
[2022-11-17] MEDS: NICOTINE 21 MG/24 HR TDSY TD SCH (09:21)
[2022-11-17] MEDS: carvediloL 3.125 MG TAB PO SCH ×2 (09:21→17:13)
[2022-11-17] MEDS: ASPIRIN 81 MG ECTAB PO SCH (09:21)
[2022-11-17] MEDS: LOSARTAN POTASSIUM 25 MG TAB PO SCH (09:22)
[2022-11-17] MEDS: ROSUVASTATIN CALCIUM 20 MG TAB PO SCH (13:34)
--- NOTE | 2022-11-17 14:49 | Discharge Summary ---
Date of Service November 17, 2022 Admission HPI Per Admitting Provider Daniela Bellamy is a 67 year old female who presents to the ER as a stroke alert due to slurred speech. Unable to get much history from patient other than she was eating today and choked on some food so her called for an ambulance. Discussed history with her over the phone. He reports he hasn't been able to understand her well for the last three days. Having increasing slurred speech. Today she was slobbering more, much more incoherent, choking on food and had a left sided facial droop so called ambulance. She was also holding her right arm as if she was in pain although unable to verbalize whether she was in pain. He reports she was taking her medications as far as he is aware but did not stand over her to make sure. Daniela was recently admitted from October 31 to 2022 due to vision loss. She was diagnosed with subcentimeter acute infarcts noted in the central semiovale watershed distribution of the right greater than left frontal parietal lobes. She was also noted to have complete occlusion of her recently placed right ICA stent via TCAR procedure on October 10 along with a chronic left common and ICA occlusion. She was seen by vascular surgery and recommended dual antiplatelets with no surgical intervention at that time recommended. The patient was a telestroke alert in the Emergency department. No TNK was recommended. CT head was concerning for interval development of a new hypodensity in the right compatible with new infarct. Fecal occult blood was positive. She was referred to medicine for admission and ongoing management of acute stroke. Admission Exam Per Admitting Provider Constitutional: WD/WN, vitals as above Eyes: PERRL, conjunctivae normal, anicteric sclerae (although difficult exam as patient kept closing her eyes) Respiratory: normal respiratory effort, lungs clear to auscultation Cardiovascular: RRR, no murmur, no edema Gastrointestinal (Abdomen): normal bowel sounds, soft, nontender, no hepatos plenomegaly Skin: no rashes, warm and dry Neurologic: awake; no focal motor deficits Speech / Cognition: + abnormal speech (Dysarthria) and + expressive aphasia; no receptive aphasia Motor/Sensory: no tremor, no pronator drift and no sensory deficit Cranial Nerves: PERRL (see above), EOM intact bilaterally, tongue midline, able to rotate head bilaterally, able to elevate shoulders bilaterally, no nystagmus and symmetric palate elevation; + abnormal facial strength (left facial droop) Coordination: normal sajmrp-ta-ppud test Principal Diagnosis recurrent CVA Discharge Exam General: 67-year old female who is alert, oriented, and appears in no acute distress. Some dysarthria appreciated. HEENT: NCAT. - Eyes - Sclera are white, anicteric, and without injection. - Mouth - MMM - Neck - supple, no appreciable JVD Cardiac: Normal rate and regular rhythm; S1 and S2 present with no murmurs, rubs, or gallops. Pulmonary: Good respiratory effort with symmetric expansion of the chest. No use of accessory muscles. Lungs were clear to auscultation bilaterally with no crackles or wheezes. Abdominal: Normoactive bowel sounds. Abdomen was soft, nondistended, and non- tender to palpation. Extremities: Upper and lower extremities are warm and well perfused. Strength 4/5 on L, 4+/5 on R. No peripheral edema in the lower extremities bilaterally Discharge Data Allergies Allergy/AdvReac Type Severity Reaction Status Date / Time No Known Allergies Allergy Mild Verified 11/11/22 16:44 Consultations 11/11/22 15:39 ED Decision to Admit Stat 11/11/22 21:08 Consult Palliative Care Routine 11/12/22 12:16 Consult Neurology Routine Ordered Studies 11/11/22 14:04 CT angio head w con Stat CT angio neck with con Stat CT head/brain wo con Stat IMPRESSION: 1. Interval development of a new hypodensity in the right compatible with new infarct. No hemorrhagic transformation is seen. 2. Redemonstration of complete thrombosis of the bilateral common and internal carotid arteries. 3. No occlusion, hemodynamically significant stenosis, aneurysm, dissection, or arteriovenous malformation in the major intracranial arteries. The anterior circulation is supplied by the communicating arteries from the posterior circulation. Assessment of stenosis of the internal carotid arteries is based on NASCET criteria. 11/12/22 09:08 MR brain wo con Routine ADDENDUM ADDENDUM: The 11/01/2022 MRI of the brain was subsequently reviewed with Dr. Benjamin. The lacunar infarct in the right centrum semiovale/turner radiata seen on diffusion weighted image #15 and the subinsular infarct on image #11 are new from 11/01/2022. Additional more superiorly located infarcts were also present on 11/01/2022. IMPRESSION: 1. There are several small foci of restricted diffusion within the bilateral centrum semiovale (right greater than left) and the right subinsular cortex consistent with acute to subacute infarcts. 2. There is no hemorrhage or mass effect. 3. Occlusion of both internal carotid arteries is again seen at the skull base. 11/13/22 13:00 Fluoro video [FL video swallow] Routine IMPRESSION: 1. No aspiration identified. 2. Please see the speech pathologist report for detailed findings and r ecommendations. Hospital Course (1) Acute CVA (cerebrovascular accident): Daniela Bellamy is a 67-year-old female with past medical history of CVA, Right ICA occlusion s/p stent, known left carotid occlusion, PAD s/p stent to RLE, anemia, HTN, COPD who presented due to concerns of slurred speech, facial droop, choking on food. Admitted for stroke workup. Recurrent strokes: -Brain MRI - several small foci of restricted diffusion within the bilateral centrum semiovale (right greater than left) in the right subinsular cortex consistent with acute to subacute infarcts -LDL, A1C normal; TTE unremarkable -Speech evaluation- easy to chew diet -Neurology consulted -Continue losartan, rosuvastatin, DAPT- aspirin, clopidogrel 75 mg -Recommend outpatient cardiac monitoring for potential atrial fibrillation thromboembolism -Permissive hypertension- goal SBP 150, MAP 90-95 -Palliative care consulted- pt would very much like to return home -Discussed goals of care earlier in stay and pt would like to return home. However, her understandably feels he cannot take care of her at home and she is very weak. -PT/OT recommend inpatient rehab, CM aiding. Anemia with positive FOBT -Possible slow-oozing GIB based on DAPT, Hgb on arrival -Not EGD or colonoscopy candidate at present -Continue pantoprazole 40mg b.i.d. -Monitor H&H -- transfuse if Hgb < 7 -- has been stable on multiple checks Iron deficiency anemia: -With low iron, & ferritin, unsaturated IBC elevated -Gave Venofer 300mg x 1 -- recommend monitor and possible further dosing in outpatient setting -Monitor H&H as above Hypertension: -Continue losartan and carvedilol Carotid stent occlusion: -Right ICA stent via TCAR procedure on 10/10/22 -Found to be occluded earlier this month -No surgical intervention recommended per vascular note from 11/01 Left carotid artery occlusion: -Noted -Vacular surgery aware, no surgery recommended PAD: -S/p stent to right LE (February 2021) -Bilateral iliac artery stenosis -Continue dual antiplatelet therapy with aspirin 81 mg, clopidogrel 75 mg -Continue rosuvastatin 20 mg VTE prophylaxis - given fecal occult blood with anemia and dual antiplatelet therapy will defer any further anticoagulation at this time Diet - Regular, easy to chew per speech evaluation CODE STATUS: DNR/DNI (2) Occult blood positive stool: (3) Anemia: (4) Carotid stent occlusion: (5) Left carotid artery occlusion: (6) PAD (peripheral artery disease): (7) Above knee amputation of right lower extremity: Total Time Total Time Spent Total Time Spent (In Minutes): 30 Discharge Plan Discharge Items Patient Disposition: Transfer Inpatient Rehab Fac Reason For Visit: ACUTE CVA Discharge Diagnosis: Stroke Activity: Per Instructions section Non-emergency contact: Primary Care Provider and Neurologist Call non-emergency contact if: you have any medication questions and your symptoms worsen Follow-up/Referrals: Go Landeros CRNP [Primary Care Provider] - 11/21/22 8:20 am Quinton Benjamin MD [Physician] - 01/16/23 11:00 am (will see BHANU Sexton) Diet: Regular Addtl Attending Provider Instructions: You were admitted to the hospital for a stroke. The blood supply in your brain was damaged, which resulted in your symptoms of facial droop and slurred speech. This improved and you are on the right medications to reduce the risk of future strokes. You were discharged to [facility], which is intended to help you regain your strength and mobility. A discharge summary will be sent to your primary care physician to ensure continuity of care. Please bring this discharge summary with you to your next office appointment so that your provider can review it at that time. Your primary care physician will help set up a heart monitor which you will wear for approximately 1 month to measure your heart rhythm and examine if this may be the cause of your strokes. Follow-up appointments: Make a follow-up appointment with your PCP within the next week. It is very important that you follow up with them shortly after discharge from the hospital. We have also requested a follow up with neurology. Keep all your follow-up appointments as already scheduled. If you cannot make an appointment, notify your provider. Medications: No new chnages Your medication list has been reviewed and reconciled upon discharge to ensure accuracy and continuity of care. An updated list of all your medications is included with your hospital discharge paperwork. Please review this list closely, and make note of any changes. Take your medications as instructed; do not skip a dose of your medicines. Make sure all of your doctors know every medicine you are taking (including acuw-lmv-svkiqlv medicines, vitamins, and supplements). Call your primary care provider before taking any new medicines (including woeg-oyu-caqzwkv medicines, vitamins, and supplements), because some of these may interact with your current medications, or may make your symptoms worse. Tell your primary care provider if you cannot afford your medications. CONTACT YOUR PRIMARY CARE PROVIDER if you experience any of the following: Weakness Numbness Vision change Dizziness Headache Difficulty following your treatment plan, or difficulty taking medications CALL 911 OR GO TO THE EMERGENCY DEPARTMENT if you experience any of the following: Sudden, severe abdominal pain or nausea/vomiting Severe chest pain, or chest pain that radiates (moves) to your jaw or arm Sudden, severe shortness of breath or difficulty breathing Thank you for allowing us to participate in your care. Addtl Slip Filler Provider Instructions: Daniela Bellamy is a 67-year-old female with past medical history of CVA, Right ICA occlusion s/p stent, known left carotid occlusion, PAD s/p stent to RLE, anemia, HTN, COPD who presented due to concerns of slurred speech, facial droop, choking on food. Admitted for stroke workup. Recurrent strokes: -Brain MRI - several small foci of restricted diffusion within the bilateral centrum semiovale (right greater than left) in the right subinsular cortex consistent with acute to subacute infarcts -LDL, A1C normal; TTE unremarkable -Speech evaluation- easy to chew diet -Neurology consulted -Continue losartan, rosuvastatin, DAPT- aspirin, clopidogrel 75 mg -Recommend outpatient cardiac monitoring for potential atrial fibrillation thromboembolism -Permissive hypertension- goal SBP 150, MAP 90-95 -Palliative care consulted- pt would very much like to return home -Discussed goals of care earlier in stay and pt would like to return home. However, her understandably feels he cannot take care of her at home and she is very weak. -PT/OT recommend inpatient rehab, CM aiding. Anemia with positive FOBT -Possible slow-oozing GIB based on DAPT, Hgb on arrival -Not EGD or colonoscopy candidate at present -Continue pantoprazole 40mg b.i.d. -Monitor H&H -- transfuse if Hgb < 7 -- has been stable on multiple checks Iron deficiency anemia: -With low iron, & ferritin, unsaturated IBC elevated -Gave Venofer 300mg x 1 -- recommend monitor and possible further dosing in outpatient setting -Monitor H&H as above Hypertension: -Continue losartan and carvedilol Carotid stent occlusion: -Right ICA stent via TCAR procedure on 10/10/22 -Found to be occluded earlier this month -No surgical intervention recommended per vascular note from 11/01 Left carotid artery occlusion: -Noted -Vacular surgery aware, no surgery recommended PAD: -S/p stent to right LE (February 2021) -Bilateral iliac artery stenosis -Continue dual antiplatelet therapy with aspirin 81 mg, clopidogrel 75 mg -Continue rosuvastatin 20 mg VTE prophylaxis - given fecal occult blood with anemia and dual antiplatelet therapy will defer any further anticoagulation at this time Diet - Regular, easy to chew per speech evaluation CODE STATUS: DNR/DNI Pending Studies at Discharge: No Stand-Alone Forms: [employer], Medications to Prevent Stroke Skilled Items Patient informed of condition?: Yes DNR: Yes Discharge Level of Care: Acute rehab Communicable Disease: No Discharge Prognosis: Improving Lines: None Urinary Catheter: No Medications and DC Order Prescriptions: Continued tramadol 50 mg tablet 50 mg PO Q6H PRN (Reason: pain) Qty: 60 0RF aspirin 81 mg tablet,delayed release (DR/EC) 81 mg PO QAM Qty: 90 3RF carvedilol 3.125 mg tablet 3.125 mg PO BIDM Qty: 180 3RF Rx Instructions: must administer with a meal/food clopidogrel 75 mg tablet 75 mg PO QAM Qty: 90 3RF losartan 25 mg tablet 12.5 mg PO QAM Qty: 45 1RF rosuvastatin 20 mg tablet 20 mg PO QAM Qty: 90 3RF Discharge Orders: Discharge Order (Routine); Ordered 11/17/22 Ordered By: Timur Ospina Admission Data Admit Date/Time: 11/11/22 15:53 Attending Provider: Timur Lay Admit Provider: Brayden Antonio Primary Care Provider: Go Landeros Other Providers: Mera Mike ; [facility] ; Brayden Antonio ; Dahlia Chávez ; Quinton Benjamin ; [facility] ; [facility] Other Interventions: Discharge Summary Assessment (RN) Last Done: 11/17/22 14:54 Supervising Physician Co-Signing Physician Notes I personally examined the patient and verified all finney points of history and exam, discussed case, and agree with decision making with Dr Davenport. resting comfortably, no complaints, awaiting placement when I saw her earlier. Got rehab bed. See Dr. Ospina addendum for events just prior to discharge. Vitals noted, resting comfortably no distress. Breathing unlabored no accessory muscle use good effort. Skin shows no rashes no pallor or icterus. Neuro without new focal deficits. Severe, essentially end-stage cerebrovascular diseasemedication management/supportive care. Short-term goal for rehab. Long-term goal for home. Stable for rehab, allow for permissive hypertension. Verbally signed out the case to the rehab team given the nuance in her goal of trying to get stron mi, but essentially to be able to go home with a palliative type mindset, as well as the high probability that she will suffer further TIA/CVA processes in the near futurebut as of discussion just prior to discharge would not want to return to the hospital for these. Otherwise as above Resident Activity Tracking Resident Involvement: Resident Care Provided Care Provided: Adult Hospital Medicine
[2022-11-17] MEDS ORDERED: SODIUM CHLORIDE 0.9% 1000ML 500 ML IV ONE (16:10)
--- NOTE | 2022-11-17 18:34 | Billing Data ---
Date of Service November 17, 2022 Coding Level of Care Code HOSP INP/OBS DISCH 30 MIN/LESS
--- NOTE | 2022-11-17 18:35 | Billing Data ---
Date of Service November 17, 2022 Coding Level of Care Code 15667 SUB INP/OBS CARE
== END 2022-11-17 17:29 | DRG 65 ==
LOC: ED 14:15 → SUATTDRO 15:53 → EDINP 15:53 → 2E 18:31 → 3N 11-17 00:06

== ENCOUNTER 2023-03-23 17:19 | Observation (INO) ==
[2023-03-23] MEDS: SODIUM CHLORIDE 0.9% 1000ML 1,000 ML IV SCH (17:57)
--- NOTE | 2023-03-23 18:14 | Emergency Department Note ---
Impression & Plan Stroke-like symptoms ED Provider Note INFORMANT: Patient ED PROVIDER(S): Joseph Preston MD CHIEF COMPLAINT: Strokelike symptoms PLAN: Disposition: Admitted Condition: Good Outpatient prescription management: none Referral: None MEDICAL DECISION MAKING: Patient presented because of strokelike symptoms. EMS reported that she was back to her baseline but time of onset and degree of symptoms was difficult to ascertain. Family did not present to the ER. Patient was evaluated. She had a significant anemia on CBC however record review indicates her baseline hemoglobin is in the low sevens. Chemistry panel and urinalysis were unremarkable. CT imaging reveals significant stenosis of both carotids bilaterally with posterior circulation providing blood flow anteriorly. On reassessment the patient was feeling well. ECG did show some nonspecific ST changes. Given the symptoms and the patient's history she will need further management in the hospital. I discussed this with the patient and she was in agreement. Consultation was made with Dr. Kenyon Miller of the [facility] service. Patient was evaluated in the ER for further management. Discussed with manager resource. After review of the information above and other included data, I feel the patient requires admission. Triage Nursing notes reviewed and agree them. Vital Signs: reviewed and remarkable for no significant abnormalities Prior /Outside records reviewed: Prior PCP record reviewed. Summarized vascular issues and stroke problems. Differential diagnosis: CVA, TIA,Infection, dehydration, metabolic abnormality, hypo/hyperglycemia, electrolyte disturbance, anemia, hypoxia, cardiac sources, intracerebral event, toxicologic, neurologic, as well as other pathologies. Diagnostics, as interpreted by me: ECG: Twelve-lead ECG reveals a normal sinus rhythm at [address] ST segment depression. No elevation. Cardiac Monitoring: Cardiac monitoring ordered by me: The patient was placed on continuous cardiac monitoring and observed. It revealed a normal sinus rhythm at 93 beats per minute without ectopy or evidence of dysrhythmia. Medical decision rules: none Imaging studies: CT and CT angiography of the head and neck revealed bilateral carotid occlusions which are unchanged from prior. HPI: The patient is a 67year old female who presents to the Emergency Room with complaints of strokelike symptoms. This started between 11 and 1 PM today and is resolved. Per EMS exact time of onset was difficult to ascertain from family. Patient has a significant history of multiple strokes and arterial disease/occlusion. Patient has baseline slurred speech. The patient also notes the following associated symptoms, general malaise. The patient has been given no medication for relieving factors. Current pain is rated as 0/10. Pt denies LOC, headache, fevers, chills, diaphoresis, visual changes, neck pain, chest pain, breathing difficulties, nausea, vomiting, abdominal pain, back pain, melena, hematochezia, urinary symptoms, numbness, lymphadenopathy, rash, or other complaints. PAST MEDICAL HISTORY: See Below, CVA, PAD PAST SURGICAL HISTORY: See Below, SOCIAL HISTORY: See Below, smoker HOME MEDICATIONS: See Below ALLERGIES: See Below VITALS: See Below PHYSICAL EXAMINATION: GENERAL: Awake, tired-appearing, in no distress HENT: Normocephalic, atraumatic. Oropharynx unremarkable. EYES: Normal conjunctiva. Sclera non-icteric. PERRLA. EOMI. NECK: Inspection normal. Non-tender. Supple. No nuchal rigidity. FROM. No masses. RESPIRATORY: Clear to auscultation. No wheezes. No rales. Normal respiratory effort. CARDIAC: Normal rate. Normal rhythm. No murmurs. No rubs. Extremities warm and well perfused. Pulses equal. No JVD. GI: Soft, non-distended. No tenderness to palpation. No rebound or guarding. No masses. RECTAL: Deferred. MUSCULOSKELETAL: Atraumatic. Chest examination reveals no tenderness. The back is symmetrical on inspection without obvious abnormality. There is no CVA tenderness to palpation. No joint edema. LOWER EXTREMITIES: Left calf is nontender. No edema. Right lower extremity has AKA present. NEURO: Normal sensorium. Left facial droop noted. No drift. Slurred speech. SKIN: No rash or jaundice noted. Past Med/Surg History Medical History AAA (abdominal aortic aneurysm) AAA (abdominal aortic aneurysm) without rupture Acute CVA (cerebrovascular accident) Alcohol abuse Alcohol use Aspiration of food Asystole CAD (coronary artery disease) Cardiac arrest Carotid artery disease Carotid artery stenosis Carotid stent occlusion Cerebral vascular disease Chronic anemia COPD (chronic obstructive pulmonary disease) COPD (chronic obstructive pulmonary disease) COPD with emphysema CVA (cerebral vascular accident) Duodenal ulcer with perforation Facial droop due to stroke Gastric perforation GERD (gastroesophageal reflux disease) History of duodenal ulcer History of GI bleed Hypertension Hypertension Ischemic ulcer of right foot Left carotid artery occlusion Left renal mass Near syncope PAD (peripheral artery disease) Peripheral artery disease Pneumoperitoneum Poor historian Pulmonary edema Rectal mass Renal artery stenosis Renal artery stenosis Renal mass Tobacco dependence Vasculopathy Ventricular asystolia Ventricular asystolia Visual changes Surgical History 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) H/O exploratory laparotomy (01/22/21) H/O tubal ligation H/O vascular surgery History of colonoscopy History of esophagogastroduodenoscopy (EGD) (08/2021) History of right-sided carotid endarterectomy (05/04/21) S/P angioplasty (02/2021) S/P carotid endarterectomy S/P peripheral artery angioplasty with stent placement (01/2021) S/P peripheral artery angioplasty with stent placement (11/2021) Status post bilateral carotid endarterectomy [place] teeth extracted Family History Mother Diabetes Lung cancer Hypertension Father Lung cancer PAD (peripheral artery disease) Denies family history of Ovarian cancer Prostate cancer Myocardial infarction Breast cancer Colorectal cancer Social History Smoking Status: Current every day smoker Tobacco Type: Cigarettes Age Started Using Tobacco: 23; packs per day: 1; Cigarettes Per Day: 1 PPD x 35 years; Second Hand Exposure: No; Do You Dip or Chew Tobacco: No; Hx Alcohol Use: Yes Alcohol type: beer Alcohol Intake Frequency: 4 or More x per/Week Alcohol Intake Frequency Comment: 2-3 beers daily or more Hx Substance Use: No Preferred Language: Bengali Communication Ability: Effective Visual Impairment: Limited Hearing Ability: Normal Jamb Cutter Required: No Beliefs That Will Affect Care: None marital status: Current Living Situation: Spouse current occupational status: retired current occupation: [employer]- stopped work after AKA How many Children do You have: 2 Feels Safe at Home: Yes Childhood Exposure to Second-Hand Smoke: Yes Diet: regular caffeine: Yes during the past year weight has: remained stable Dental Care, Regularly: No Physical Activity Frequency: Does not Exercise Physical Activity Frequency Comment: on feet at work all day Seatbelt Use: always Sunscreen Use: No Assistive Devices: Cane, Walker and Wheelchair Allergies Allergies Allergy/AdvReac Type Severity Reaction Status Date / Time No Known Allergies Allergy Mild Verified 03/23/23 19:39 Home Meds Home Medications Medication Instructions Recorded Confirmed atorvastatin 40 mg tablet 40 mg PO DAILY 11/27/22 03/23/23 docusate sodium 100 mg capsule 100 mg PO BID 11/27/22 03/23/23 magnesium hydroxide 2,400 mg/10 mL 30 ml PO DAILY 11/27/22 03/23/23 oral suspension pantoprazole 40 mg tablet,delayed 40 mg PO BID 11/27/22 03/23/23 release polyethylene glycol 3350 17 gram 17 g PO DAILY 11/27/22 03/23/23 oral powder packet Previous Rx's Medication Instructions Recorded tramadol 50 mg tablet 50 mg PO Q6H PRN pain #60 tabs 11/02/22 aspirin 81 mg tablet,delayed 81 mg PO QAM #90 tabs 11/09/22 release carvedilol 3.125 mg tablet 3.125 mg PO BIDM #180 tabs 11/09/22 clopidogrel 75 mg tablet 75 mg PO QAM #90 tabs 01/01/23 rosuvastatin 20 mg tablet (Crestor) 20 mg PO DAILY #90 tabs 01/01/23 Wheelchair Break Extensions #1 ea 01/21/23 ferrous sulfate 325 mg (65 mg 325 mg PO BID #60 tabs 01/22/23 iron) tablet,delayed release losartan 25 mg tablet 12.5 mg PO QAM #45 tabs 03/22/23 Results & Data (ED) Vital Signs Vital Signs - 24 hr 03/23/23 17:29 03/23/23 17:29 03/23/23 17:54 Temperature 36.6 C Temperature Source Oral Oral Pulse Rate 96 H 85 Respiratory Rate 22 Blood Pressure 153/79 H Blood Pressure Mean 103 Blood Pressure Position Sitting Pulse Oximetry 96 Oxygen Delivery Method Room Air Sepsis Recent Fever Within 48 Hours No Sepsis New/Unexplained Change in Mental Status No Sepsis Action Taken by Nursing No Action Required 03/23/23 17:54 03/23/23 18:00 03/23/23 18:02 Temperature Temperature Source Pulse Rate 85 87 Respiratory Rate 20 17 Blood Pressure 130/61 Blood Pressure Mean 96 Blood Pressure Position Pulse Oximetry Oxygen Delivery Method Sepsis Recent Fever Within 48 Hours Sepsis New/Unexplained Change in Mental Status Sepsis Action Taken by Nursing 03/23/23 18:02 03/23/23 18:30 03/23/23 18:31 Temperature Temperature Source Pulse Rate 87 86 Respiratory Rate 17 18 Blood Pressure 142/66 H Blood Pressure Mean 87 Blood Pressure Position Pulse Oximetry Oxygen Delivery Method Sepsis Recent Fever Within 48 Hours Sepsis New/Unexplained Change in Mental Status Sepsis Action Taken by Nursing 03/23/23 18:31 03/23/23 19:00 03/23/23 19:02 Temperature Temperature Source Pulse Rate 84 91 H Respiratory Rate 18 20 Blood Pressure 149/68 H Blood Pressure Mean 77 Blood Pressure Position Pulse Oximetry 92 Oxygen Delivery Method Sepsis Recent Fever Within 48 Hours Sepsis New/Unexplained Change in Mental Status Sepsis Action Taken by Nursing 03/23/23 19:02 03/23/23 19:30 03/23/23 19:32 Temperature Temperature Source Pulse Rate 95 H 102 H Respiratory Rate 17 21 Blood Pressure 143/24 H Blood Pressure Mean 100 Blood Pressure Position Pulse Oximetry Oxygen Delivery Method Sepsis Recent Fever Within 48 Hours Sepsis New/Unexplained Change in Mental Status Sepsis Action Taken by Nursing 03/23/23 19:32 03/23/23 20:00 03/23/23 20:00 Temperature Temperature Source Pulse Rate 88 82 Respiratory Rate 19 14 Blood Pressure 117/75 Blood Pressure Mean 79 Blood Pressure Position Pulse Oximetry 98 Oxygen Delivery Method Sepsis Recent Fever Within 48 Hours Sepsis New/Unexplained Change in Mental Status Sepsis Action Taken by Nursing 03/23/23 20:30 03/23/23 21:00 03/23/23 21:07 Temperature Temperature Source Pulse Rate 98 H 87 Respiratory Rate 15 20 Blood Pressure 133/57 L Blood Pressure Mean 87 Blood Pressure Position Pulse Oximetry Oxygen Delivery Method Sepsis Recent Fever Within 48 Hours Sepsis New/Unexplained Change in Mental Status Sepsis Action Taken by Nursing 03/23/23 21:07 Temperature Temperature Source Pulse Rate 93 H Respiratory Rate 19 Blood Pressure Blood Pressure Mean Blood Pressure Position Pulse Oximetry 98 Oxygen Delivery Method Sepsis Recent Fever Within 48 Hours Sepsis New/Unexplained Change in Mental Status Sepsis Action Taken by Nursing Laboratory Data 03/23/23 17:55 03/23/23 17:55 Lab Results 03/23/23 03/23/23 03/23/23 Range/Units 17:55 17:55 17:55 WBC 5.32 (4.8-10.8) K/ul RBC 3.50 L (4.20-5.40) M/uL Hgb 6.9 L* (12.0-16.0) g/dl Hct 25.4 L (37.0-47.0) % MCV 72.6 L (80.0-100.0) fL MCH 19.7 L (25.0-34.0) pg MCHC 27.2 L (32.0-36.0) g/dL RDW Std Deviation 48.8 H (36.4-46.3) fL RDW Coeff of Odette 18.5 H (11.5-14.5) % Plt Count 274 (130-400) K/uL MPV 9.5 (9.4-12.4) fL Immature Gran % (Auto) 0.0 % Neut % (Auto) 62.1 % Lymph % (Auto) 21.1 % Reagan % (Auto) 13.2 % Eos % (Auto) 1.9 % Baso % (Auto) 1.7 % Neut # (Auto) 3.31 (1.40-6.50) K/uL Lymph # (Auto) 1.12 L (1.2-3.4) K/uL Reagan # (Auto) 0.70 H (0.11-0.59) K/uL Eos # (Auto) 0.10 (0-0.50) K/uL Baso # (Auto) 0.09 (0-0.2) K/uL Immature Gran # (Auto) 0.00 L (0.01-0.20) K/uL Absolute Nucleated RBC 0.02 (0-0.12) K/uL Nucleated RBC % (auto) 0.4 % Polychromasia 1+ Hypochromasia Present Anisocytosis Present PT 10.6 (9.0-12.0) Seconds INR 1.0 (0.9-1.1) APTT 23.3 (21.0-31.0) Seconds PTT Ratio 0.8 Sodium 138 (136-145) mmol/L Potassium 4.0 (3.5-5.1) mmol/L Chloride 107 (98-107) mmol/L Carbon Dioxide 26 (21-32) mmol/L Anion Gap 5 (3-11) BUN 16 (6-23) mg/dl Creatinine 0.52 L (0.6-1.2) mg/dl Est Cr Clr Drug Dosing 85.3 ml/min Est GFR ( Amer) 116.2 ml/min Est GFR (Non-Af Amer) 100.3 ml/min BUN/Creatinine Ratio 30.8 H (10-20) Glucose 111 H (70-99(Fasting)) mg/dl Calcium 8.6 (8.6-10.3) mg/dl Magnesium 2.2 (1.7-2.4) mg/dl Total Bilirubin 0.3 (0.2-1.0) mg/dl AST 9 L (13-39) U/L ALT 7 (7-52) U/L Alkaline Phosphatase 108 H (34-104) U/L Troponin I High Sens 5.8 (0-14) pg/ml Total Protein 6.7 (6.0-8.3) gm/dl Albumin 4.0 (3.4-5.0) gm/dl Globulin 2.7 (2.5-4.0) gm/dl Albumin/Globulin Ratio 1.5 (0.9-2) Urine Color Urine Appearance (Clear) Urine pH (4.5-7.5) Ur Specific [place] (1.000-1.030) Urine Protein (Negative) Urine Glucose (UA) (Negative) Urine Ketones (Negative) Urine Blood (Negative) Urine Nitrite (Negative) Urine Bilirubin (Negative) Urine Urobilinogen (Negative) Ur Leukocyte Esterase (Negative) SARS-CoV-2, RNA, NAAT (NEGATIVE) Blood Type Antibody Screen Crossmatch 03/23/23 03/23/23 03/23/23 Range/Units 19:27 19:45 19:50 WBC (4.8-10.8) K/ul RBC (4.20-5.40) M/uL Hgb (12.0-16.0) g/dl Hct (37.0-47.0) % MCV (80.0-100.0) fL MCH (25.0-34.0) pg MCHC (32.0-36.0) g/dL RDW Std Deviation (36.4-46.3) fL RDW Coeff of Odette (11.5-14.5) % Plt Count (130-400) K/uL MPV (9.4-12.4) fL Immature Gran % (Auto) % Neut % (Auto) % Lymph % (Auto) % [place] % (Auto) % Eos % (Auto) % Baso % (Auto) % Neut # (Auto) (1.40-6.50) K/uL Lymph # (Auto) (1.2-3.4) K/uL [place] # (Auto) (0.11-0.59) K/uL Eos # (Auto) (0-0.50) K/uL Baso # (Auto) (0-0.2) K/uL Immature Gran # (Auto) (0.01-0.20) K/uL Absolute Nucleated RBC (0-0.12) K/uL Nucleated RBC % (auto) % Polychromasia Hypochromasia Anisocytosis PT (9.0-12.0) Seconds INR (0.9-1.1) APTT (21.0-31.0) Seconds PTT Ratio Sodium (136-145) mmol/L Potassium (3.5-5.1) mmol/L Chloride (98-107) mmol/L Carbon Dioxide (21-32) mmol/L Anion Gap (3-11) BUN (6-23) mg/dl Creatinine (0.6-1.2) mg/dl Est Cr Clr Drug Dosing ml/min Est GFR ( Amer) ml/min Est GFR (Non-Af Amer) ml/min BUN/Creatinine Ratio (10-20) Glucose (70-99(Fasting)) mg/dl Calcium (8.6-10.3) mg/dl Magnesium (1.7-2.4) mg/dl Total Bilirubin (0.2-1.0) mg/dl AST (13-39) U/L ALT (7-52) U/L Alkaline Phosphatase (34-104) U/L Troponin I High Sens (0-14) pg/ml Total Protein (6.0-8.3) gm/dl Albumin (3.4-5.0) gm/dl Globulin (2.5-4.0) gm/dl Albumin/Globulin Ratio (0.9-2) Urine Color Yellow Urine Appearance Clear (Clear) Urine pH 7.5 (4.5-7.5) Ur Specific [place] > 1.045 H (1.000-1.030) Urine Protein Negative (Negative) Urine Glucose (UA) Negative (Negative) Urine Ketones Negative (Negative) Urine Blood Negative (Negative) Urine Nitrite Negative (Negative) Urine Bilirubin Negative (Negative) Urine Urobilinogen Negative (Negative) Ur Leukocyte Esterase Negative (Negative) SARS-CoV-2, RNA, NAAT NEGATIVE (NEGATIVE) Blood Type O Negative Antibody Screen NEGATIVE Crossmatch See Detail Administered Medications Sodium Chloride (Nss 1000ml) 1,000 mls @ 50 mls/hr IV .Q20H ALICIA Stop: 04/22/23 17:44 Last Admin: 03/23/23 17:57 Dose: 50 mls/hr Documented By: HERMES Discontinued Medications Ioversol (Optiray 320 500ml) 115 ml IV ONCE ONE Stop: 03/23/23 18:50 Last Admin: 03/23/23 18:49 Dose: 115 ml Documented By: DIANE Imaging Data Radiologist's Impression: Chest X-Ray 03/23/23 17:31 XR chest 1V portable CLINICAL HISTORY: neuro deficit, acute stroke suspected TECHNIQUE: Single frontal radiograph of the chest was obtained. Comparison: Comparison is made to chest radiograph 11/11/2022 FINDINGS: No lines and tubes are seen. Calcified aortic knob is seen. The lungs are clear. No evidence of pleural effusion or pneumothorax. IMPRESSION: No acute abnormalities and in particular no radiographic evidence of pneumonia. ACT 112: Negative or not required by law. Electronically signed by: Ezra Queen M.D. 03/23/2023 6:[address] 03/23/23 17:31 CT angio neck with con, CT head/brain wo con, CT angio head w con CLINICAL HISTORY: neuro deficit, acute stroke suspected TECHNIQUE: Contiguous axial CT images of the head were acquired from the base of the skull to the vertex without intravenous contrast administration. CT angiography of the head and neck was performed following intravenous administration of iodinated contrast. Coronal and sagittal MIPS were obtained from the axial data set and were submitted for review. Automated dose lowering techniques and/or adjustment according to patient size were utilized for this examination. All measurements were calculated based on NASCET criteria. Comparison: Comparison is made to CTA neck 10/31/2022 FINDINGS: CT head: Areas of decreased attenuation are present in the periventricular and subcortical white matter bilaterally consistent with small vessel ischemic disease. Generalized cerebral atrophy with commensurate enlargement of the ventricles, sulci, and cisterns is also present. There is no acute intracranial hemorrhage or evidence of acute territorial infarction. No shift of the midline structures, mass effect, or extra-axial abnormalities are shown. Atherosclerotic calcifications are present in the intracranial segments of the internal carotid arteries. Biapical emphysema is seen. 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 The right common carotid artery is also occluded close to its origin despite the presence of a stent. No distal reconstitution is seen in either vessel. The common carotid, external carotid, cervical segments of the internal carotid arteries, and the cervical segments of the vertebral arteries are patent without hemodynamically significant stenosis. The left vertebral artery is dominant. CTA Head: The anterior and posterior cerebral circulations are patent. No hemodynamically significant stenosis, aneurysm, dissection, or arteriovenous malformation is shown. Partial circulation is noted bilaterally allowing the posterior circulation to supply the anterior portion of the [place]. IMPRESSION: 1. No acute intracranial hemorrhage, evidence of acute territorial infarction, or other acute intracranial disease process. 2. 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 3. No occlusion, hemodynamically significant stenosis, aneurysm, dissection, or arteriovenous malformation in the major intracranial arteries. Anterior circulation is supplied by the posterior circulation. Assessment of stenosis of the internal carotid arteries is based on NASCET criteria. ACT 112: Negative or not required by law. Electronically signed by: Ezra Queen M.D. 03/23/2023 8:01 PM Head CTA 03/23/23 17:31 CT angio neck with con, CT head/brain wo con, CT angio head w con CLINICAL HISTORY: neuro deficit, acute stroke suspected TECHNIQUE: Contiguous axial CT images of the head were acquired from the base of the skull to the vertex without intravenous contrast administration. CT angiography of the head and neck was performed following intravenous administration of iodinated contrast. Coronal and sagittal MIPS were obtained from the axial data set and were submitted for review. Automated dose lowering techniques and/or adjustment according to patient size were utilized for this examination. All measurements were calculated based on NASCET criteria. Comparison: Comparison is made to CTA neck 10/31/2022 FINDINGS: CT head: Areas of decreased attenuation are present in the periventricular and subcortical white matter bilaterally consistent with small vessel ischemic disease. Generalized cerebral atrophy with commensurate enlargement of the ventricles, sulci, and cisterns is also present. There is no acute intracranial hemorrhage or evidence of acute territorial infarction. No shift of the midline structures, mass effect, or extra-axial abnormalities are shown. Atheros clerotic calcifications are present in the intracranial segments of the internal carotid arteries. Biapical emphysema is seen. 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 The right common carotid artery is also occluded close to its origin despite the presence of a stent. No distal reconstitution is seen in either vessel. The common carotid, external carotid, cervical segments of the internal carotid arteries, and the cervical segments of the vertebral arteries are patent without hemodynamically significant stenosis. The left vertebral artery is dominant. CTA Head: The anterior and posterior cerebral circulations are patent. No hemodynamically significant stenosis, aneurysm, dissection, or arteriovenous malformation is shown. Partial circulation is noted bilaterally allowing the posterior circulation to supply the anterior portion of the [place]. IMPRESSION: 1. No acute intracranial hemorrhage, evidence of acute territorial infarction, or other acute intracranial disease process. 2. 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 3. No occlusion, hemodynamically significant stenosis, aneurysm, dissection, or arteriovenous malformation in the major intracranial arteries. Anterior circulation is supplied by the posterior circulation. Assessment of stenosis of the internal carotid arteries is based on NASCET criteria. ACT 112: Negative or not required by law. Electronically signed by: Ezra Queen M.D. 03/23/2023 8:01 PM Neck CTA 03/23/23 17:31 CT angio neck with con, CT head/brain wo con, CT angio head w con CLINICAL HISTORY: neuro deficit, acute stroke suspected TECHNIQUE: Contiguous axial CT images of the head were acquired from the base of the skull to the vertex without intravenous contrast administration. CT brigid ography of the head and neck was performed following intravenous administration of iodinated contrast. Coronal and sagittal MIPS were obtained from the axial data set and were submitted for review. Automated dose lowering techniques and/or adjustment according to patient size were utilized for this examination. All measurements were calculated based on NASCET criteria. Comparison: Comparison is made to CTA neck 10/31/2022 FINDINGS: CT head: Areas of decreased attenuation are present in the periventricular and subcortical white matter bilaterally consistent with small vessel ischemic disease. Generalized cerebral atrophy with commensurate enlargement of the ventricles, sulci, and cisterns is also present. There is no acute intracranial hemorrhage or evidence of acute territorial infarction. No shift of the midline structures, mass effect, or extra-axial abnormalities are shown. Atherosclerotic calcifications are present in the intracranial segments of the internal carotid arteries. Biapical emphysema is seen. 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 The right common carotid artery is also occluded close to its origin despite the presence of a stent. No distal reconstitution is seen in either vessel. The common carotid, external carotid, cervical segments of the internal carotid arteries, and the cervical segments of the vertebral arteries are patent without hemodynamically significant stenosis. The left vertebral artery is dominant. CTA Head: The anterior and posterior cerebral circulations are patent. No hemodynamically significant stenosis, aneurysm, dissection, or arteriovenous malformation is shown. Partial circulation is noted bilaterally allowing the posterior circulation to supply the anterior portion of the [place]. IMPRESSION: 1. No acute intracranial hemorrhage, evidence of acute territorial infarction, or other acute intracranial disease process. 2. 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 3. No occlusion, hemodynamically significant stenosis, aneurysm, dissection, or arteriovenous malformation in the major intracranial arteries. Anterior circul ation is supplied by the posterior circulation. Assessment of stenosis of the internal carotid arteries is based on NASCET criteria. ACT 112: Negative or not required by law. Electronically signed by: Ezra Queen M.D. 03/23/2023 8:01 PM Discharge Plan Visit Data Chief Complaint: Neuro Symptoms/Deficit Stated Complaint: NEURO SYMPTOMS ED Provider: Joseph Preston Discharge Problem: Stroke-like symptoms Forms Stand Alone Forms: My [facility] Prescriptions Prescriptions: No Action tramadol 50 mg tablet 50 mg PO Q6H PRN (Reason: pain) Qty: 60 0RF clopidogrel 75 mg tablet 75 mg PO QAM Qty: 90 3RF rosuvastatin [Crestor] 20 mg tablet 20 mg PO DAILY Qty: 90 3RF Rx Instructions: Pt taking what she had at home and NOT the Atorvastatin ferrous sulfate 325 mg (65 mg iron) tablet,delayed release (DR/EC) 325 mg PO BID Qty: 60 1RF losartan 25 mg tablet 12.5 mg PO QAM Qty: 45 1RF aspirin 81 mg tablet,delayed release (DR/EC) 81 mg PO QAM Qty: 90 3RF carvedilol 3.125 mg tablet 3.125 mg PO BIDM Qty: 180 3RF Rx Instructions: must administer with a meal/food (DME) Wheelchair Break Extensions See Rx Instructions .Route .MEDSUPPLY Qty: 1 0RF Rx Instructions: As directed atorvastatin 40 mg Tablet 40 mg PO DAILY Hold Instructions: Pt taking Crestor 20 mgs is what she has at home 01/01/2023 pantoprazole 40 mg Tablet,Delayed Release (Dr/Ec) 40 mg PO BID Hold Instructions: Pt not taking 01/01/2023 docusate sodium 100 mg Capsule 100 mg PO BID Hold Instructions: Pt not taking 01/01/2023 magnesium hydroxide 2,400 mg/10 mL Suspension 30 ml PO DAILY Hold Instructions: Pt not taking 01/01/2023 polyethylene glycol 3350 17 gram Powder In Packet 17 g PO DAILY Hold Instructions: Pt not taking 01/01/2023 Referrals Referrals: Go Landeros CRNP [Primary Care Provider] -
[2023-03-23 18:16] LABS: Hematocrit (blood only) 25.4 % (37.0-47.0); Hemoglobin 6.9 g/dl (12.0-16.0); Mean Corpuscular Hemoglobin 19.7 pg (25.0-34.0); Mean Corpuscular Hgb Conc 27.2 g/dL (32.0-36.0); Mean Corpuscular Volume 72.6 fL (80.0-100.0); Mean Platelet Volume 9.5 fL (9.4-12.4); Nucleated RBC # (auto) 0.02 K/uL (0-0.12); Nucleated RBC % (auto) 0.4 %; Platelet Count 274 K/uL (130-400); RDW Coefficient of Variation 18.5 % (11.5-14.5); RDW Standard Deviation 48.8 fL (36.4-46.3); White Blood Count 5.32 K/ul (4.8-10.8)
--- NOTE | 2023-03-23 18:21 | XRay Report ---
XR chest 1V portable CLINICAL HISTORY: neuro deficit, acute stroke suspected TECHNIQUE: Single frontal radiograph of the chest was obtained. Comparison: Comparison is made to chest radiograph 11/11/2022 FINDINGS: No lines and tubes are seen. Calcified aortic knob is seen. The lungs are clear. No evidence of pleur al effusion or pneumothorax. IMPRESSION: No acute abnormalities and in particular no radiographic evidence of pneumonia. ACT 112: Negative or not required by law. Electronically signed by: Ezra Queen M.D. 03/23/2023 6:19 PM
[2023-03-23 18:24] LABS: Albumin Globulin Ratio 1.5 (0.9-2); BUN Creatinine Ratio 30.8 (10-20); Bilirubin,Total 0.3 mg/dl (0.2-1.0); Calcium 8.6 mg/dl (8.6-10.3); Creatinine Clr Calc Pharmacy 85.3 ml/min; Est GFR (African American) 116.2 ml/min; Est GFR (Non-African American) 100.3 ml/min; Globulin 2.7 gm/dl (2.5-4.0); Magnesium 2.2 mg/dl (1.7-2.4); Total Protein 6.7 gm/dl (6.0-8.3)
[2023-03-23] MEDS ORDERED: SODIUM CHLORIDE 0.9% 250 ML IV PRN (18:27)
[2023-03-23 18:31] LABS: Troponin I High Sensitivity 5.8 pg/ml (0-14)
[2023-03-23 18:36] LABS: Partial Thromboplastin Ratio 0.8; Partial Thromboplastin Time 23.3 Seconds (21.0-31.0); Prothrombin Time 10.6 Seconds (9.0-12.0)
[2023-03-23 18:40] LABS: Anisocytosis Present; Basophils # (auto) 0.09 K/uL (0-0.2); Basophils % (auto) 1.7 %; Eosinophils % (auto) 1.9 %; Hypochromasia Present; Lymphocytes # (auto) 1.12 K/uL (1.2-3.4); Lymphocytes % (auto) 21.1 %; Monocytes % (auto) 13.2 %; Neutrophils # (auto) 3.31 K/uL (1.40-6.50); Neutrophils % (auto) 62.1 %; Polychromasia 1+
[2023-03-23] MEDS ORDERED: OPTIRAY 320 500ml IV ONE (18:49)
[2023-03-23 19:37] LABS: Appearance Urine Clear (Clear); Bilirubin Urine Negative (Negative); Blood Urine Negative (Negative); Color Urine Yellow; Glucose Urine UA Negative (Negative); Ketones Urine Negative (Negative); Leukocyte Esterase Urine Negative (Negative); Nitrite Urine Negative (Negative); Protein Urine Negative (Negative); Specific Gravity Urine > 1.045 (1.000-1.030); Urobilinogen Urine Negative (Negative); pH Urine 7.5 (4.5-7.5)
--- NOTE | 2023-03-23 20:03 | CT Scan Report ---
CT angio neck with con, CT head/brain wo con, CT angio head w con CLINICAL HISTORY: neuro deficit, acute stroke suspected TECHNIQUE: Contiguous axial CT images of the head were acquired from the base of the skull to the nichole tianna without intravenous contrast administration. CT angiography of the head and neck was performed f ollowing intravenous administration of iodinated contrast. Coronal and sagittal MIPS were obtained fr om the axial data set and were submitted for review. Automated dose lowering techniques and/or adjus tment according to patient size were utilized for this examination. All measurements were calculated based on NASCET criteria. Comparison: Comparison is made to CTA neck 10/31/2022 FINDINGS: CT head: Areas of decreased attenuation are present in the periventricular and subcortical white maximo er bilaterally consistent with small vessel ischemic disease. Generalized cerebral atrophy with comme nsurate enlargement of the ventricles, sulci, and cisterns is also present. There is no acute intracr anial hemorrhage or evidence of acute territorial infarction. No shift of the midline structures, mas s effect, or extra-axial abnormalities are shown. Atherosclerotic calcifications are present in the intracranial segments of the internal carotid arteries. Biapical emphysema is seen. 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 The right common carotid artery is also occluded close to its origin despite the presence of a stent. No distal recon stitution is seen in either vessel. The common carotid, external carotid, cervical segments of the in ternal carotid arteries, and the cervical segments of the vertebral arteries are patent without hemod ynamically significant stenosis. The left vertebral artery is dominant. CTA Head: The anterior and posterior cerebral circulations are patent. No hemodynamically significan t stenosis, aneurysm, dissection, or arteriovenous malformation is shown. Partial circulation i s noted bilaterally allowing the posterior circulation to supply the anterior portion of the [place]. IMPRESSION: 1. No acute intracranial hemorrhage, evidence of acute territorial infarction, or other acute intrac ranial disease process. 2. 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 3. No occlusion, hemodynamically significant stenosis, aneurysm, dissection, or arteriovenous malfor mation in the major intracranial arteries. Anterior circulation is supplied by the posterior circulat ion. Assessment of stenosis of the internal carotid arteries is based on NASCET criteria. ACT 112: Negative or not required by law. Electronically signed by: Ezra Queen M.D. 03/23/2023 8:01 PM
--- NOTE | 2023-03-23 20:29 | History & Physical Report ---
Date of Service March 23, 2023 Assessment & Plan (1) Stroke-like symptoms: Plan: 67 yo female PMHx cerbral vascular disease, carotid vascular disease, PAD, above knee amputation R, renal mass, anemia, HTN, COPD, tobacco abuse presents with stroke like symptoms. #Stroke like symptoms #h/o multiple strokes #h/o cerebral vascular disease -presented with reported leaning towards R side in wheelchair for a couple hours earlier in the afternoon. Now back to baseline and denies atypical symptoms or stroke like symptoms at this time. She has a chronic h/o stroke and diffuse artery disease likely 2/2 ongoing tobacco abuse. Per previous documentation it appears she has deferred further medical treatment in many regards other than medications. Unclear if she is compliant with medications at home. Per reports, palliative discussions have been had. -CT head and CTA head/neck: No acute intracranial hemorrhage, evidence of acute territorial infarction, or other acute intracranial disease process. Remonstration of bilateral occlusion of the carotid arteries. No occlusion, hemodynamically significant stenosis, aneurysm, dissection, or arteriovenous malformation in the major intracranial arteries. Anterior circulation is supplied by the posterior circulation. -NPO -speech consult ordered -neuro checks q2h -a1c and lipid panel pending -MRI brain ordered -continue ASA, plavix, statin #h/o carotid artery disease #PAD #above knee amputation R -CT as above, chronic. Stable, s/p R CEA April 2021, LCA occlusion not amendable to revascularization, total occlusion of prev placed R ICA stent #Anemia -Hgb 6.9. Chronic with b/l in 7s/8s. Alert with no acute fatigue or lightheadedness. -reported as chronic iron deficiency anemia. H/o GIB Aug 2021 with no active signs of bleed. -?no longer taking iron tabs at home. Pt does state she gets outpatient infusions but unsure of what. ?presume venofer. -iron studies pending -ordered venofer x1 -defer transfusion at this time due to HDS. Trend cbc. #HTN -cont. home coreg and losartan #Left renal mass -Noted on imaging in March 2021 -it was recommended to f/u w/ urology and have repeat imaging in 6 mos, this was not complete. Pt defers per PCP note. #COPD (chronic obstructive pulmonary disease) #Tobacco cessation -cessation discussed. Pt still smoke 1 pack per day day despite CAD history. -unclear if pt taking inhalers at home. -ordered scheduled duoneb and Symbicort DVT ppx: ASA, plavix; Hgb 6.9 but appears chronic 2/2 iron deficiency FEN/GI: NPO Code Status: DNI/DNR Dispo: PCU (2) Cerebral vascular disease: (3) Bilateral carotid artery occlusion: (4) Carotid artery disease: (5) PAD (peripheral artery disease): (6) Above knee amputation of right lower extremity: (7) Tobacco abuse: (8) COPD (chronic obstructive pulmonary disease): (9) Left renal mass: (10) Hypertension: (11) Rectal mass: (12) History of CVA (cerebrovascular accident): (13) Anemia: (14) Chronic pain: History of Present Illness Chief Complaint: stroke like symptoms Primary Care Provider: LAKSHMI Garza 67 yo female PMHx cerbral vascular disease, carotid vascular disease, PAD, above knee amputation R, renal mass, anemia, HTN, COPD, tobacco abuse presents with stroke like symptoms. Patient seen at bedside and is alone in room. Poor historian. She states she woke up feeling funky for most of the day but has been starting to feel back to her baseline. She has a history of a above-knee amputation and ambulates in a wheelchair. Per reports she was apparently leaning to her right side for couple of hours in the early afternoon and it was unclear if she was experiencing strokelike symptoms especially with her history of multiple strokes. She appears very alert and states she is at her baseline with chronic congestion secondary to COPD. She continues to smoke 1 pack a day. Denies fevers, fatigue, chest pain, shortness of breath, cough, abdominal pain, nausea, vomiting, constipation, diarrhea, dysuria, numbness, tingling, weakness. Allergies Allergy/AdvReac Type Severity Reaction Status Date / Time No Known Allergies Allergy Mild Verified 03/23/23 19:39 Home Medications Medication Instructions Recorded Confirmed Type tramadol 50 mg tablet 50 mg PO Q6H PRN pain #60 tabs 11/02/22 03/23/23 Rx aspirin 81 mg tablet,delayed 81 mg PO QAM #90 tabs 11/09/22 03/23/23 Rx release carvedilol 3.125 mg tablet 3.125 mg PO BIDM #180 tabs 11/09/22 03/23/23 Rx docusate sodium 100 mg capsule 100 mg PO BID 11/27/22 03/23/23 History magnesium hydroxide 2,400 mg/10 mL 30 ml PO DAILY 11/27/22 03/23/23 History oral suspension pantoprazole 40 mg tablet,delayed 40 mg PO BID 11/27/22 03/23/23 History release polyethylene glycol 3350 17 gram 17 g PO DAILY 11/27/22 03/23/23 History oral powder packet clopidogrel 75 mg tablet 75 mg PO QAM #90 tabs 01/01/23 03/23/23 Rx rosuvastatin 20 mg tablet (Crestor) 20 mg PO DAILY #90 tabs 01/01/23 03/23/23 Rx Wheelchair Break Extensions #1 ea 01/21/23 01/21/23 Rx ferrous sulfate 325 mg (65 mg 325 mg PO BID #60 tabs 01/22/23 03/23/23 Rx iron) tablet,delayed release losartan 25 mg tablet 12.5 mg PO QAM #45 tabs 03/22/23 03/23/23 Rx Past Med/Surg History Medical History AAA (abdominal aortic aneurysm) AAA (abdominal aortic aneurysm) without rupture Acute CVA (cerebrovascular accident) Alcohol abuse Alcohol use Aspiration of food Asystole CAD (coronary artery disease) Cardiac arrest Carotid artery disease Carotid artery stenosis Carotid stent occlusion Cerebral vascular disease Chronic anemia COPD (chronic obstructive pulmonary disease) COPD (chronic obstructive pulmonary disease) COPD with emphysema CVA (cerebral vascular accident) Duodenal ulcer with perforation Facial droop due to stroke Gastric perforation GERD (gastroesophageal reflux disease) History of duodenal ulcer History of GI bleed Hypertension Hypertension Ischemic ulcer of right foot Left carotid artery occlusion Left renal mass Near syncope PAD (peripheral artery disease) Peripheral artery disease Pneumoperitoneum Poor historian Pulmonary edema Rectal mass Renal artery stenosis Renal artery stenosis Renal mass Tobacco dependence Vasculopathy Ventricular asystolia Ventricular asystolia Visual changes Surgical History 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) H/O exploratory laparotomy (01/22/21) H/O tubal ligation H/O vascular surgery History of colonoscopy History of esophagogastroduodenoscopy (EGD) (08/2021) History of right-sided carotid endarterectomy (05/04/21) S/P angioplasty (02/2021) S/P carotid endarterectomy S/P peripheral artery angioplasty with stent placement (01/2021) S/P peripheral artery angioplasty with stent placement (11/2021) Status post bilateral carotid endarterectomy [place] teeth extracted Family History Mother Diabetes Lung cancer Hypertension Father Lung cancer PAD (peripheral artery disease) Denies family history of Ovarian cancer Prostate cancer Myocardial infarction Breast cancer Colorectal cancer Social History Smoking Status: Current every day smoker Tobacco Type: Cigarettes Age Started Using Tobacco: 23; packs per day: 1; Cigarettes Per Day: 1 pack a day; Second Hand Exposure: No; Do You Dip or Chew Tobacco: No; Hx Alcohol Use: Yes Alcohol type: beer Alcohol Intake Frequency: 4 or More x per/Week Alcohol Intake Frequency Comment: 2-3 beers daily or more Hx Substance Use: No Preferred Language: Burkinan Communication Ability: Effective Visual Impairment: Limited Hearing Ability: Normal Manager Environmental Health And Safety Required: No Beliefs That Will Affect Care: None marital status: Current Living Situation: Spouse current occupational status: retired 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 [employer] How many Children do You have: 2 Feels Safe at Home: Yes Childhood Exposure to Second-Hand Smoke: Yes Diet: regular caffeine: Yes during the past year weight has: remained stable Dental Care, Regularly: No Physical Activity Frequency: Does not Exercise Physical Activity Frequency Comment: on feet at work all day Seatbelt Use: always Sunscreen Use: No Assistive Devices: Denture - Upper, Denture - Lower and Glasses Review of Systems Review of Systems: All systems reviewed & are unremarkable except as noted in HPI & below Physical Exam Physical Exam: Constitutional: in no acute distress, pleasant and normal affect, intact memory. Vitals as above. HEENT: No scleral injection or discharge. Moist mucous membranes. PERRL. EOMI. Neck: Supple. Trachea midline. Lungs: +rhonchi, +rales, no wheezing, no increased work of breathing Cardiac: RRR.No murmurs. No extremity edema. 2+ peripheral pulse on L. Abdomen: Soft, nontender, and nondistended.No guarding. No hepatosplenomegaly. MSK: No cyanosis or clubbing. L extremity motor strength 5/5. +above knee amputation R. Skin: No rashes, warm, dry. Neurologic: Grossly intact cranial nerves. 5/5 strength L extremity and upper extremities. Speech mildly slurred at baseline. No facial palsies. Results & Data Results & Data Vital Signs (Past 12 Hours) Vital Signs Temp Pulse Resp BP Pulse Ox O2 Del Method 03/23/23 20:00 82 14 98 03/23/23 20:00 117/75 03/23/23 19:32 88 19 03/23/23 19:32 143/24 H 03/23/23 19:30 102 H 21 03/23/23 19:02 95 H 17 03/23/23 19:02 149/68 H 03/23/23 19:00 91 H 20 92 03/23/23 18:31 84 18 03/23/23 18:31 142/66 H 03/23/23 18:30 86 18 03/23/23 18:02 87 17 03/23/23 18:02 130/61 03/23/23 18:00 87 17 03/23/23 17:54 85 20 03/23/23 17:54 85 03/23/23 17:29 36.6 C 96 H 22 153/79 H 96 Room Air Laboratory Results Laboratory Results WBC 5.32 K/ul (4.8-10.8) 03/23/23 17:55 RBC 3.50 M/uL (4.20-5.40) L 03/23/23 17:55 Hgb 6.9 g/dl (12.0-16.0) L* 03/23/23 17:55 Hct 25.4 % (37.0-47.0) L 03/23/23 17:55 MCV 72.6 fL (80.0-100.0) L 03/23/23 17:55 MCH 19.7 pg (25.0-34.0) L 03/23/23 17:55 MCHC 27.2 g/dL (32.0-36.0) L 03/23/23 17:55 RDW Std Deviation 48.8 fL (36.4-46.3) H 03/23/23 17:55 RDW Coeff of Odette 18.5 % (11.5-14.5) H 03/23/23 17:55 Plt Count 274 K/uL (130-400) 03/23/23 17:55 MPV 9.5 fL (9.4-12.4) 03/23/23 17:55 Immature Gran % (Auto) 0.0 % 03/23/23 17:55 Neut % (Auto) 62.1 % 03/23/23 17:55 Lymph % (Auto) 21.1 % 03/23/23 17:55 [place] % (Auto) 13.2 % 03/23/23 17:55 Eos % (Auto) 1.9 % 03/23/23 17:55 Baso % (Auto) 1.7 % 03/23/23 17:55 Neut # (Auto) 3.31 K/uL (1.40-6.50) 03/23/23 17:55 Lymph # (Auto) 1.12 K/uL (1.2-3.4) L 03/23/23 17:55 [place] # (Auto) 0.70 K/uL (0.11-0.59) H 03/23/23 17:55 Eos # (Auto) 0.10 K/uL (0-0.50) 03/23/23 17:55 Baso # (Auto) 0.09 K/uL (0-0.2) 03/23/23 17:55 Immature Gran # (Auto) 0.00 K/uL (0.01-0.20) L 03/23/23 17:55 Absolute Nucleated RBC 0.02 K/uL (0-0.12) 03/23/23 17:55 Nucleated RBC % (auto) 0.4 % 03/23/23 17:55 Polychromasia 1+ 03/23/23 17:55 Hypochromasia Present 03/23/23 17:55 Anisocytosis Present 03/23/23 17:55 PT 10.6 Seconds (9.0-12.0) 03/23/23 17:55 INR 1.0 (0.9-1.1) 03/23/23 17:55 APTT 23.3 Seconds (21.0-31.0) 03/23/23 17:55 PTT Ratio 0.8 03/23/23 17:55 Sodium 138 mmol/L (136-145) 03/23/23 17:55 Potassium 4.0 mmol/L (3.5-5.1) 03/23/23 17:55 Chloride 107 mmol/L (98-107) 03/23/23 17:55 Carbon Dioxide 26 mmol/L (21-32) 03/23/23 17:55 Anion Gap 5 (3-11) 03/23/23 17:55 BUN 16 mg/dl (6-23) 03/23/23 17:55 Creatinine 0.52 mg/dl (0.6-1.2) L 03/23/23 17:55 Est Cr Clr Drug Dosing 85.3 ml/min 03/23/23 17:55 Est GFR ( Amer) 116.2 ml/min 03/23/23 17:55 Est GFR (Non-Af Amer) 100.3 ml/min 03/23/23 17:55 BUN/Creatinine Ratio 30.8 (10-20) H 03/23/23 17:55 Glucose 111 mg/dl (70-99(Fasting)) H 03/23/23 17:55 Calcium 8.6 mg/dl (8.6-10.3) 03/23/23 17:55 Magnesium 2.2 mg/dl (1.7-2.4) 03/23/23 17:55 Total Bilirubin 0.3 mg/dl (0.2-1.0) 03/23/23 17:55 AST 9 U/L (13-39) L 03/23/23 17:55 ALT 7 U/L (7-52) 03/23/23 17:55 Alkaline Phosphatase 108 U/L (34-104) H 03/23/23 17:55 Troponin I High Sens 5.8 pg/ml (0-14) 03/23/23 17:55 Total Protein 6.7 gm/dl (6.0-8.3) 03/23/23 17:55 Albumin 4.0 gm/dl (3.4-5.0) 03/23/23 17:55 Globulin 2.7 gm/dl (2.5-4.0) 03/23/23 17:55 Albumin/Globulin Ratio 1.5 (0.9-2) 03/23/23 17:55 Urine Color Yellow 03/23/23 19:27 Urine Appearance Clear (Clear) 03/23/23 19:27 Urine pH 7.5 (4.5-7.5) 03/23/23 19:27 Ur Specific [place] > 1.045 (1.000-1.030) H 03/23/23 19:27 Urine Protein Negative (Negative) 03/23/23 19:27 Urine Glucose (UA) Negative (Negative) 03/23/23 19: Urine Ketones Negative (Negative) 03/23/23 19: Urine Blood Negative (Negative) 03/23/23 19: Urine Nitrite Negative (Negative) 03/23/23 19: Urine Bilirubin Negative (Negative) 03/23/23 19: Urine Urobilinogen Negative (Negative) 03/23/23 19: Ur Leukocyte Esterase Negative (Negative) 03/23/23 19:27 SARS-CoV-2, RNA, NAAT NEGATIVE (NEGATIVE) 03/23/23 19:50 Crossmatch See Detail 03/23/23 19:45 Impressions Chest X-Ray 03/23/23 17:31 XR chest 1V portable CLINICAL HISTORY: neuro deficit, acute stroke suspected TECHNIQUE: Single frontal radiograph of the chest was obtained. Comparison: Comparison is made to chest radiograph 11/11/2022 FINDINGS: No lines and tubes are seen. Calcified aortic knob is seen. The lungs are clear. No evidence of pleural effusion or pneumothorax. IMPRESSION: No acute abnormalities and in particular no radiographic evidence of pneumonia. ACT 112: Negative or not required by law. Electronically signed by: Ezra Queen M.D. 03/23/2023 6:[address] 03/23/23 17:31 CT angio neck with con, CT head/brain wo con, CT angio head w con CLINICAL HISTORY: neuro deficit, acute stroke suspected TECHNIQUE: Contiguous axial CT images of the head were acquired from the base of the skull to the vertex without intravenous contrast administration. CT angiography of the head and neck was performed following intravenous administration of iodinated contrast. Coronal and sagittal MIPS were obtained from the axial data set and were submitted for review. Automated dose lowering techniques and/or adjustment according to patient size were utilized for this examination. All measurements were calculated based on NASCET criteria. Comparison: Comparison is made to CTA neck 10/31/2022 FINDINGS: CT head: Areas of decreased attenuation are present in the periventricular and subcortical white matter bilaterally consistent with small vessel ischemic disease. Generalized cerebral atrophy with commensurate enlargement of the ventricles, sulci, and cisterns is also present. There is no acute intracranial hemorrhage or evidence of acute territorial infarction. No shift of the midline structures, mass effect, or extra-axial abnormalities are shown. Atherosclerotic calcifications are present in the intracranial segments of the internal carotid arteries. Biapical emphysema is seen. 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 The right common carotid artery is also occluded close to its origin de spite the presence of a stent. No distal reconstitution is seen in either vessel. The common carotid, external carotid, cervical segments of the internal carotid arteries, and the cervical segments of the vertebral arteries are patent without hemodynamically significant stenosis. The left vertebral artery is dominant. CTA Head: The anterior and posterior cerebral circulations are patent. No he modynamically significant stenosis, aneurysm, dissection, or arteriovenous malformation is shown. Partial circulation is noted bilaterally allowing the posterior circulation to supply the anterior portion of the [place]. IMPRESSION: 1. No acute intracranial hemorrhage, evidence of acute territorial infarction, or other acute intracranial disease process. 2. 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 3. No occlusion, hemodynamically significant stenosis, aneurysm, dissection, or arteriovenous malformation in the major intracranial arteries. Anterior cir culation is supplied by the posterior circulation. Assessment of stenosis of the internal carotid arteries is based on NASCET criteria. ACT 112: Negative or not required by law. Electronically signed by: Ezra Queen M.D. 03/23/2023 8:01 PM Head CTA 03/23/23 17:31 CT angio neck with con, CT head/brain wo con, CT angio head w con CLINICAL HISTORY: neuro deficit, acute stroke suspected TECHNIQUE: Contiguous axial CT images of the head were acquired from the base of the skull to the vertex without intravenous contrast administration. CT angiography of the head and neck was performed following intravenous administration of iodinated contrast. Coronal and sagittal MIPS were obtained from the axial data set and were submitted for review. Automated dose lowering techniques and/or adjustment according to patient size were utilized for this examination. All measurements were calculated based on NASCET criteria. Comparison: Comparison is made to CTA neck 10/31/2022 FINDINGS: CT head: Areas of decreased attenuation are present in the periventricular and subcortical white matter bilaterally consistent with small vessel ischemic disease. Generalized cerebral atrophy with commensurate enlargement of the ventricles, sulci, and cisterns is also present. There is no acute intracranial hemorrhage or evidence of acute territorial infarction. No shift of the midline structures, mass effect, or extra-axial abnormalities are shown. Atherosclerotic calcifications are present in the intracranial segments of the internal carotid arteries. Biapical emphysema is seen. 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 The right common carotid artery is also occluded close to its origin despite the presence of a stent. No distal reconstitution is seen in either vessel. The common carotid, external carotid, cervical segments of the internal carotid arteries, and the cervical segments of the vertebral arteries are patent without hemodynamically significant stenosis. The left vertebral artery is dominant. CTA Head: The anterior and posterior cerebral circulations are patent. No hemodynamically significant stenosis, aneurysm, dissection, or arteriovenous malformation is shown. Partial circulation is noted bilaterally allowing the posterior circulation to supply the anterior portion of the [place]. IMPRESSION: 1. No acute intracranial hemorrhage, evidence of acute territorial infarction, or other acute intracranial disease process. 2. 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 3. No occlusion, hemodynamically significant stenosis, aneurysm, dissection, or arteriovenous malformation in the major intracranial arteries. Anterior circulation is supplied by the posterior circulation. Assessment of stenosis of the internal carotid arteries is based on NASCET criteria. ACT 112: Negative or not required by law. Electronically signed by: Ezra Queen M.D. 03/23/2023 8:01 PM Neck CTA 03/23/23 17:31 CT angio neck with con, CT head/brain wo con, CT angio head w con CLINICAL HISTORY: neuro deficit, acute stroke suspected TECHNIQUE: Contiguous axial CT images of the head were acquired from the base of the skull to the vertex without intravenous contrast administration. CT angiography of the head and neck was performed following intravenous administration of iodinated contrast. Coronal and sagittal MIPS were obtained from the axial data set and were submitted for review. Automated dose lowering techniques and/or adjustment according to patient size were utilized for this examination. All measurements were calculated based on NASCET criteria. Comparison: Comparison is made to CTA neck 10/31/2022 FINDINGS: CT head: Areas of decreased attenuation are present in the periventricular and subcortical white matter bilaterally consistent with small vessel ischemic disease. Generalized cerebral atrophy with commensurate enlargement of the ventricles, sulci, and cisterns is also present. There is no acute intracranial hemorrhage or evidence of acute territorial infarction. No shift of the midline structures, mass effect, or extra-axial abnormalities are shown. Atherosclerotic calcifications are present in the intracranial segments of the internal carotid arteries. Biapical emphysema is seen. 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 The right common carotid artery is also occluded close to its origin despite the presence of a stent. No distal reconstitution is seen in either vessel. The common carotid, external carotid, cervical segments of the internal carotid arteries, and the cervical segments of the vertebral arteries are patent without hemodynamically significant stenosis. The left vertebral artery is dominant. CTA Head: The anterior and posterior cerebral circulations are patent. No hemodynamically significant stenosis, aneurysm, dissection, or arteriovenous malformation is shown. Partial circulation is noted bilaterally allowing the posterior circulation to supply the anterior portion of the [place] . IMPRESSION: 1. No acute intracranial hemorrhage, evidence of acute territorial infarction, or other acute intracranial disease process. 2. 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 3. No occlusion, hemodynamically significant stenosis, aneurysm, dissection, or arteriovenous malformation in the major intracranial arteries. Anterior circulation is supplied by the posterior circulation. Assessment of stenosis of the internal carotid arteries is based on NASCET criteria. ACT 112: Negative or not required by law. Electronically signed by: Ezra Queen M.D. 03/23/2023 8:01 PM Supervising Physician Co-Signing Physician Notes Attending addendum: I have physically seen this patient, have supervised the medical residents activities, and agree with the H&P unless as otherwise noted. Assessment and Plan: Strokelike symptoms/history of previous strokes and cerebrovascular disease- The patient will be admitted to telemetry for serial cardiac enzymes, serial EKG's, cardiac rhythm monitoring and a 2-D echocardiogram with Dopplers. Stroke without tPA order set CT head, CTA head neck negative for acute findings. Anterior circulation noted to be filled by posterior circulation N.p.o. except essential medications Consult speech, OT, PT Check hemoglobin A1c and fasting lipid panel MRI brain without contrast Continue aspirin and clopidogrel Bilateral carotid artery disease stable- Previous right ICA stent totally occluded as before LCA occlusion not amenable to revascularization Continue antiplatelet agents as noted Chronic anemia- Hemoglobin 6.9, close to her usual range Venofer IV x1 Remaining orders and notations as noted Resident Activity Tracking Resident Involvement: Resident Care Provided Care Provided: Adult Hospital Medicine (4) Carotid artery disease Carotid artery disease type: stenosis Laterality: bilateral Qualified Code(s): I65.23 - Occlusion and stenosis of bilateral carotid arteries (13) Anemia Anemia type: unspecified type Qualified Code(s): D64.9 - Anemia, unspecified
[2023-03-23] MEDS ORDERED: IRON SUCROSE 300 MG in SODIUM CHLORIDE 0.9% 250 ML IV ONE (22:00)
[2023-03-23] MEDS: ALBUT/IPRATROP 3MG/0.5MG NEB 3 ML VIAL NEB SCH (22:56)
--- NOTE | 2023-03-23 23:02 | Magnetic Resonance Report ---
Exam(s): MRI HEAD Without Contrast EXAM: MR Head Without Intravenous Contrast CLINICAL HISTORY: Reason for exam: stroke r/o. TECHNIQUE: Magnetic resonance images of the head/brain without intravenous contrast in multiple planes. COMPARISON: Dated 11/12/22 FINDINGS: Brain: Whole brain. No hemorrhage. No acute infarct. Ventricles: Unremarkable. No ventriculomegaly. Bones/joints: Unremarkable. Sinuses: Unremarkable as visualized. No acute sinusitis. Mastoid air cells: Unremarkable as visualized. No mastoid effusion. Orbits: Unremarkable as visualized. IMPRESSION: No acute findings in the head/brain. Electronically signed by: Kalpesh Moser MD 03/23/23 23:01 PM
[2023-03-23] MEDS ORDERED: ACETAMINOPHEN 325 MG TAB PO PRN (23:13)
[2023-03-23] MEDS ORDERED: traMADol HCL 50 MG TABLET PO PRN (23:13)
[2023-03-24] MEDS: SODIUM CHLORIDE 0.9% 1000ML 1,000 ML IV SCH (01:22)
[2023-03-24] MEDS: ALBUT/IPRATROP 3MG/0.5MG NEB 3 ML VIAL NEB SCH ×4 (02:12→15:23)
[2023-03-24 05:25] LABS: Hematocrit (blood only) 22.1 % (37.0-47.0); Mean Corpuscular Hemoglobin 19.7 pg (25.0-34.0); Mean Corpuscular Hgb Conc 27.1 g/dL (32.0-36.0); Mean Corpuscular Volume 72.7 fL (80.0-100.0); Mean Platelet Volume 9.7 fL (9.4-12.4); Platelet Count 279 K/uL (130-400); RDW Coefficient of Variation 18.4 % (11.5-14.5); RDW Standard Deviation 48.6 fL (36.4-46.3); Red Blood Count 3.04 M/uL (4.20-5.40); White Blood Count 4.83 K/ul (4.8-10.8)
[2023-03-24 05:45] LABS: Albumin Level 3.6 gm/dl (3.4-5.0); Anion Gap 6 (3-11); Bilirubin,Total 0.3 mg/dl (0.2-1.0); Calcium 8.7 mg/dl (8.6-10.3); Carbon Dioxide 25 mmol/L (21-32); Chloride 109 mmol/L (98-107); Potassium 3.8 mmol/L (3.5-5.1); Sodium 140 mmol/L (136-145)
[2023-03-24 05:51] LABS: BUN Creatinine Ratio 30.4 (10-20); Blood Urea Nitrogen 14 mg/dl (6-23); Creatinine Clr Calc Pharmacy 93.7 ml/min; Est GFR (Non-African American) 104.4 ml/min; Glucose 89 mg/dl (70-99(Fasting))
[2023-03-24 06:00] LABS: Ferritin 4.7 ng/ml (8-388)
[2023-03-24 06:05] LABS: Alanine Aminotransferase 6 U/L (7-52); Albumin Globulin Ratio 1.5 (0.9-2); Alkaline Phosphatase 92 U/L (34-104); Aspartate Aminotransferase 9 U/L (13-39); Chol HDL Ratio 1.9 (0-5); Cholesterol 97 mg/dl (0-200); Globulin 2.4 gm/dl (2.5-4.0); HDL Cholesterol 52 mg/dl; Iron 766 mcg/dl (35-150); LDL Cholesterol Calculated 27 mg/dl; Triglycerides 89 mg/dl (0-150); Unsaturated Iron Binding Cap < 55 mcg/dl (155-355); VLDL Cholesterol 18 mg/dl (0-30)
[2023-03-24 06:08] LABS: Basophils # (auto) 0.07 K/uL (0-0.2); Basophils % (auto) 1.4 %; Eosinophils % (auto) 2.1 %; Hypochromasia Present; Immature Granulocytes # (auto) 0.02 K/uL (0.01-0.20); Immature Granulocytes % (auto) 0.4 %; Lymphocytes # (auto) 0.86 K/uL (1.2-3.4); Lymphocytes % (auto) 17.8 %; Monocytes # (auto) 0.48 K/uL (0.11-0.59); Monocytes % (auto) 9.9 %; Neutrophils % (auto) 68.4 %; Polychromasia 1+
[2023-03-24] MEDS ORDERED: SODIUM CHLORIDE 0.9% 250 ML IV PRN (06:57)
--- NOTE | 2023-03-24 06:58 | Communication Note ---
Date of Service: March 24, 2023 Patient's morning Hgb 6.0. When seen at bedside pt alert when woken up but seems extra fatigued and unable to physically sign blood consent form. Verbal consent was received with two witnesses. Will transfuse 1 unit for now.
--- NOTE | 2023-03-24 07:21 | Hospitalist Progress Note ---
Date of Service March 24, 2023 Assessment & Plan (1) Stroke-like symptoms: Plan: 67 yo female PMHx cerbral vascular disease, carotid vascular disease, PAD, above knee amputation R, renal mass, anemia, HTN, COPD, tobacco abuse presents with stroke like symptoms. #Stroke-like symptoms #h/o multiple strokes #h/o cerebral vascular disease -presented with reported leaning towards R side in wheelchair for a couple hours earlier in the afternoon. Now back to baseline and denies atypical symptoms or stroke like symptoms at this time. She has a chronic h/o stroke and diffuse artery disease likely 2/2 ongoing tobacco abuse. Per previous documentation it appears she has deferred further medical treatment in many regards other than medications. Unclear if she is compliant with medications at home. Per reports, palliative discussions have been had. -CT head and CTA head/neck: No acute intracranial hemorrhage, evidence of acute territorial infarction, or other acute intracranial disease process. Remonstration of bilateral occlusion of the carotid arteries. No occlusion, hemodynamically significant stenosis, aneurysm, dissection, or arteriovenous malformation in the major intracranial arteries. Anterior circulation is supplied by the posterior circulation. -MRI brain showing evidence of chronic microvascular disease, age-related atrophy, no evidence of acute hemorrhage or infarct -Likely her presentation is more indicative of essentially endstage chronic cerebrovascular disease than an acute issue - As above there have been palliative discussions and it is unlikely that we'll be able to further optimize her -A1c of 5.3 -Lipid profile with HDL of 52 -- if anything LDL is too low at 27 -continue ASA, plavix, statin #h/o carotid artery disease #PAD #above knee amputation R -CT as above, chronic. Stable, s/p R CEA April 2021, LCA occlusion not amendable to revascularization, total occlusion of prev placed R ICA stent #Anemia -Chronic with b/l in 7s/8s. Alert with no acute fatigue or lightheadedness. -reported as chronic iron deficiency anemia. H/o GIB Aug 2021 with no active signs of bleed. -?no longer taking iron tabs at home. Pt does state she gets outpatient infusions but unsure of what. ?presume venofer. -Hgb on 03/24 AM at 6.0 -- 1U PRBCs ordered 03/24 AM -Monitor H&H -- up to 8.9 after transfusion #HTN -cont. home coreg and losartan #Left renal mass -Noted on imaging in March 2021 -it was recommended to f/u w/ urology and have repeat imaging in 6 mos, this was not complete. Pt defers per PCP note. #COPD (chronic obstructive pulmonary disease) #Tobacco cessation -cessation discussed. Pt still smoke 1 pack per day day despite CAD history. -unclear if pt taking inhalers at home. -ordered scheduled duoneb and Symbicort DVT ppx: ASA, plavix; Hgb 6.9 but appears chronic 2/2 iron deficiency FEN/GI: NPO Code Status: DNI/DNR Dispo: PCU -- patient stable to her baseline of essentially endstage cerebrovascular disease; can be DC'd from our perspective; the transportation they use is unavailable over the weekend so DC will likely be Sunday (2) Cerebral vascular disease: (3) Bilateral carotid artery occlusion: (4) Carotid artery disease: (5) PAD (peripheral artery disease): (6) Above knee amputation of right lower extremity: (7) Tobacco abuse: (8) COPD (chronic obstructive pulmonary disease): (9) Left renal mass: (10) Hypertension: (11) Rectal mass: (12) History of CVA (cerebrovascular accident): (13) Anemia: (14) Chronic pain: Admission and Anticipated Discharge Date Admission Date: March 23, 2023 Supervising Physician Co-Signing Physician Notes I personally examined the patient and verified all finney points of history and exam, discussed case, and agree with decision making with Dr Morel. Feeling okaybasically back to her baseline, would like to go home. Vitals noted, in general she shows chronic neurodeficits and looks very similar to when of her last had her earlier this year. Breathing unlabored. No skin rashes pallor or icterus. TIAsuperimposed on what essentially is end-stage cerebrovascular disease. See previous discussions, she really just wants to go home, we discussed formal hospice consult but she declines at this timeshe does not get in depth in disc ussion, but mostly it seems that she just does not see the need for formal hospice involvement. Unfortunately he needs transportation assistance in getting home that was not able to be set up today. Otherwise as above. Subjective Patient continued to do well overnight after admission. Stroke scales have shown GCS of 15 and she has had no recurrence of symptoms. Denies NEWSOME, dizziness, vision changes, n/v, CP, palp, SOB, new weakness, numbness, tingling. Review of Systems Review of Systems: Per subjective Physical Exam Physical Exam: Constitutional: in no acute distress, pleasant and normal affect, intact memory. Vitals as above. HEENT: No scleral injection or discharge. Moist mucous membranes. PERRL. EOMI. Neck: Supple. Trachea midline. Lungs: +rhonchi, +rales, no wheezing, no increased work of breathing Cardiac: RRR.No murmurs. No extremity edema. 2+ peripheral pulse on L. Abdomen: Soft, nontender, and nondistended.No guarding. No hepatosplenomegaly. MSK: No cyanosis or clubbing. L extremity motor strength 5/5. +above knee amputation R. Skin: No rashes, warm, dry. Neurologic: Grossly intact cranial nerves. 5/5 strength L extremity and upper extremities. Speech mildly slurred at baseline. No facial palsies. Results & Data Results & Data Vital Signs (Past 12 Hours) Vital Signs Temp Pulse Pulse Resp BP BP Pulse Ox 03/24/23 03:36 36.6 C 89 17 133/76 91 03/24/23 02:14 87 16 87 L 03/23/23 23:30 03/23/23 23:00 95 H 03/23/23 23:40 36.4 C L 84 18 160/79 H 95 03/23/23 23:27 95 H 03/23/23 22:56 87 16 95 03/23/23 22:14 90 18 130/68 03/23/23 21:07 93 H 19 98 03/23/23 21:07 133/57 L 03/23/23 21:00 87 20 03/23/23 20:30 98 H 15 03/23/23 20:00 82 14 98 03/23/23 20:00 117/75 03/23/23 19:32 88 19 03/23/23 19:32 143/24 H 03/23/23 19:30 102 H 21 O2 Del Method O2 Flow Rate 03/24/23 03:36 Nasal Cannula 1.5 03/24/23 02:14 Room Air 03/23/23 23:30 Room Air 03/23/23 23:00 03/23/23 23:40 Room Air 03/23/23 23:27 03/23/23 22:56 Room Air 03/23/23 22:14 Room Air 03/23/23 21:07 03/23/23 21:07 03/23/23 21:00 03/23/23 20:30 03/23/23 20:00 03/23/23 20:00 03/23/23 19:32 03/23/23 19:32 03/23/23 19:30 Resident Activity Tracking Resident Involvement: Resident Care Provided Care Provided: Adult Hospital Medicine (4) Carotid artery disease Carotid artery disease type: stenosis Laterality: bilateral Qualified Code(s): I65.23 - Occlusion and stenosis of bilateral carotid arteries (13) Anemia Anemia type: unspecified type Qualified Code(s): D64.9 - Anemia, unspecified
[2023-03-24 07:30] LABS: Estimated Average Glucose 105 mg/dl; Hemoglobin A1C 5.3 % (4.5-5.6)
[2023-03-24] MEDS: carvediloL 3.125 MG TAB PO SCH ×2 (08:36→16:51)
[2023-03-24] MEDS: FLUTICASONE/VILANTEROL 200/25MCG 14 PUFFS/INHALER INH SCH ×2 (08:37→08:49)
[2023-03-24] MEDS ORDERED: ASPIRIN 81 MG ECTAB PO SCH (09:00)
[2023-03-24] MEDS ORDERED: CLOPIDOGREL BISULFATE 75 MG TAB PO SCH (09:00)
[2023-03-24] MEDS ORDERED: LOSARTAN POTASSIUM 25 MG TAB PO SCH (09:00)
[2023-03-24] MEDS ORDERED: ROSUVASTATIN CALCIUM 20 MG TAB PO SCH (09:00)
--- NOTE | 2023-03-24 10:33 | Electrocardiogram Report ---
Test Reason : Blood Pressure : / mmHG Vent. Rate : 089 BPM Atrial Rate : 089 BPM P-R Int : 148 ms QRS Dur : 090 ms QT Int : 366 ms P-R-T Axes : 058 058 082 degrees QTc Int : 445 ms Normal sinus rhythm ST depression consider inferolateral ischemia Abnormal ECG When compared with ECG of 11-NOV-2022 14:29, The degree of ST depression has improved Confirmed by Kota De La Cruz ([id number]) on 03/24/2023 10:33:15 AM Referred By: REFERRED SELF Confirmed By:Kota De La Cruz
[2023-03-24 13:24] LABS: Hematocrit (blood only) 30.3 % (37.0-47.0); Hemoglobin 8.9 g/dl (12.0-16.0)
--- NOTE | 2023-03-24 16:03 | Billing Data ---
Date of Service March 24, 2023 Coding Level of Care Code 66972 SUB INP/OBS CARE
--- NOTE | 2023-03-24 16:42 | Billing Data ---
Date of Service March 24, 2023 Coding Level of Care Code 46714 IN/OBS DISCH 30 MIN/LESS Comment disregard other E&M code - patient able to be discharged
--- NOTE | 2023-03-24 16:55 | Discharge Summary ---
Date of Service March 24, 2023 Admission HPI Per Admitting Provider 67 yo female PMHx cerbral vascular disease, carotid vascular disease, PAD, above knee amputation R, renal mass, anemia, HTN, COPD, tobacco abuse presents with stroke like symptoms. Patient seen at bedside and is alone in room. Poor historian. She states she woke up feeling funky for most of the day but has been starting to feel back to her baseline. She has a history of a above-knee amputation and ambulates in a wheelchair. Per reports she was apparently leaning to her right side for couple of hours in the early afternoon and it was unclear if she was experiencing strokelike symptoms especially with her history of multiple strokes. She appears very alert and states she is at her baseline with chronic congestion secondary to COPD. She continues to smoke 1 pack a day. Denies fevers, fatigue, chest pain, shortness of breath, cough, abdominal pain, nausea, vomiting, constipation, diarrhea, dysuria, numbness, tingling, weakness. Principal Diagnosis strole-like symptoms Discharge Exam Constitutional: in no acute distress, pleasant and normal affect, intact memory. Vitals as above. HEENT: No scleral injection or discharge. Moist mucous membranes. PERRL. EOMI. Neck: Supple. Trachea midline. Lungs: +rhonchi, +rales, no wheezing, no increased work of breathing Cardiac: RRR.No murmurs. No extremity edema. 2+ peripheral pulse on L. Abdomen: Soft, nontender, and nondistended.No guarding. No hepatosplenomegaly. MSK: No cyanosis or clubbing. L extremity motor strength 5/5. +above knee amputation R. Skin: No rashes, warm, dry. Neurologic: Grossly intact cranial nerves. 5/5 strength L extremity and upper extremities. Speech mildly slurred at baseline. No facial palsies. Discharge Data Allergies Allergy/AdvReac Type Severity Reaction Status Date / Time No Known Allergies Allergy Mild Verified 03/23/23 19:39 Consultations 03/23/23 21:23 ED Decision to Admit Stat Ordered Studies 03/23/23 17:31 CT angio head w con Stat CT angio neck with con Stat CT head/brain wo con Stat 03/23/23 21:43 MR brain wo con Routine Hospital Course (1) Stroke-like symptoms: 67 yo female PMHx cerbral vascular disease, carotid vascular disease, PAD, above knee amputation R, renal mass, anemia, HTN, COPD, tobacco abuse presents with stroke like symptoms. #Stroke-like symptoms #h/o multiple strokes #h/o cerebral vascular disease -presented with reported leaning towards R side in wheelchair for a couple hours earlier in the afternoon. Now back to baseline and denies atypical symptoms or stroke like symptoms at this time. She has a chronic h/o stroke and diffuse artery disease likely 2/2 ongoing tobacco abuse. Per previous documentation it appears she has deferred further medical treatment in many regards other than medications. Unclear if she is compliant with medications at home. Per reports, palliative discussions have been had. -CT head and CTA head/neck: No acute intracranial hemorrhage, evidence of acute territorial infarction, or other acute intracranial disease process. Remonstration of bilateral occlusion of the carotid arteries. No occlusion, hemodynamically significant stenosis, aneurysm, dissection, or arteriovenous malformation in the major intracranial arteries. Anterior circulation is supplied by the posterior circulation. -MRI brain showing evidence of chronic microvascular disease, age-related atrophy, no evidence of acute hemorrhage or infarct -Likely her presentation is more indicative of essentially endstage chronic cerebrovascular disease than an acute issue - As above there have been palliative discussions and it is unlikely that we'll be able to further optimize her -A1c of 5.3 -Lipid profile with HDL of 52 -- if anything LDL is too low at 27 -continue ASA, Plavix, statin #h/o carotid artery disease #PAD #above knee amputation R -CT as above, chronic. Stable, s/p R CEA April 2021, LCA occlusion not amendable to revascularization, total occlusion of prev placed R ICA stent #Anemia -Chronic with b/l in 7s/8s. Alert with no acute fatigue or lightheadedness. -reported as chronic iron deficiency anemia. H/o GIB Aug 2021 with no active signs of bleed. -?no longer taking iron tabs at home. Pt does state she gets outpatient infusions but unsure of what. ?presume venofer. -Hgb on 03/24 AM at 6.0 -- 1U PRBCs ordered 03/24 AM -Monitor H&H -- up to 8.9 after transfusion #HTN -cont. home Coreg and Losartan #Left renal mass -Noted on imaging in March 2021 -it was recommended to f/u w/ urology and have repeat imaging in 6 mos, this was not complete. Pt defers per PCP note. #COPD (chronic obstructive pulmonary disease) #Tobacco cessation -cessation discussed. Pt still smoke 1 pack per day day despite CAD history. -unclear if pt taking inhalers at home. (2) Cerebral vascular disease: (3) Bilateral carotid artery occlusion: (4) Carotid artery disease: (5) PAD (peripheral artery disease): (6) Above knee amputation of right lower extremity: (7) Tobacco abuse: (8) COPD (chronic obstructive pulmonary disease): (9) Left renal mass: (10) Hypertension: (11) Rectal mass: (12) History of CVA (cerebrovascular accident): (13) Anemia: (14) Chronic pain: Total Time Total Time Spent Total Time Spent (In Minutes): <30 Discharge Plan Discharge Items Patient Disposition: Home - Self-Care Reason For Visit: STROKE LIKE SYMPTOMS Discharge Diagnosis: TIA Activity: Per Instructions section Non-emergency contact: Primary Care Provider Call non-emergency contact if: you have any medication questions and your symptoms worsen Follow-up/Referrals: Go Landeros CRNP [Primary Care Provider] - Diet: Heart Healthy Addtl Attending Provider Instructions: You were admitted to [facility] due to feeling off and somewhat confused at home. Upon presentation to the hospital your symptoms had already resolved. However, given your history of multiple strokes, a work-up was done to rule out a new stroke as a possibility. CT scan of your head and neck showed no evidence of new stroke, but did show blockage of both of your carotid arteries. An MRI of your brain showed no evidence of new stroke or bleed, but did show some chronic changes in the brain related to your prior history of stroke. On your lab work, you were found to have low blood counts with a hemoglobin of 6.0 as well as evidence of iron deficiency. As such, you were transfused with 1 unit of red blood cells and given iron infusion intravenously. Due to the above, we recommend that you follow up with your primary care provider within the next week to discuss your care going forward. Please continue to take all your medications as prescribed. If you develop any worsening or new, concerning symptoms on an emergent basis, please return to the hospital for reevaluation. Pending Studies at Discharge: No Stand-Alone Forms: [facility], Smoking Cessation Medications and DC Order Prescriptions: Continued tramadol 50 mg tablet 50 mg PO Q6H PRN (Reason: pain) Qty: 60 0RF clopidogrel 75 mg tablet 75 mg PO QAM Qty: 90 3RF rosuvastatin [Crestor] 20 mg tablet 20 mg PO DAILY Qty: 90 3RF Rx Instructions: Pt taking what she had at home and NOT the Atorvastatin ferrous sulfate 325 mg (65 mg iron) tablet,delayed release (DR/EC) 325 mg PO BID Qty: 60 1RF losartan 25 mg tablet 12.5 mg PO QAM Qty: 45 1RF aspirin 81 mg tablet,delayed release (DR/EC) 81 mg PO QAM Qty: 90 3RF carvedilol 3.125 mg tablet 3.125 mg PO BIDM Qty: 180 3RF Rx Instructions: must administer with a meal/food (DME) Wheelchair Break Extensions See Rx Instructions .Route .MEDSUPPLY Qty: 1 0RF Rx Instructions: As directed pantoprazole 40 mg Tablet,Delayed Release (Dr/Ec) 40 mg PO BID Hold Instructions: Pt not taking 01/01/2023 docusate sodium 100 mg Capsule 100 mg PO BID Hold Instructions: Pt not taking 01/01/2023 magnesium hydroxide 2,400 mg/10 mL Suspension 30 ml PO DAILY Hold Instructions: Pt not taking 01/01/2023 polyethylene glycol 3350 17 gram Powder In Packet 17 g PO DAILY Hold Instructions: Pt not taking 01/01/2023 Discontinued atorvastatin 40 mg Tablet 40 mg PO DAILY Hold Instructions: Pt taking Crestor 20 mgs is what she has at home 01/01/2023 Discharge Orders: Discharge Order (Routine); Ordered 03/24/23 Ordered By: Timur Lay Admission Data Admit Date/Time: 03/23/23 21:42 Attending Provider: Timur Lay Admit Provider: Loki Toledo Primary Care Provider: Go Landeros Other Providers: Kenyon Miller Other Interventions: Discharge Summary Assessment (RN) Last Done: 03/24/23 16:53 Supervising Physician Co-Signing Physician Notes I personally examined the patient and verified all finney points of history and exam, discussed case, and agree with decision making with Dr Morel. Feeling okaybasically back to her baseline, would like to go home. Vitals noted, in general she shows chronic neurodeficits and looks very similar to when of her last had her earlier this year. Breathing unlabored. No skin rashes pallor or icterus. TIAsuperimposed on what essentially is end-stage cerebrovascular disease. See previous discussions, she really just wants to go home, we discussed formal hospice consult but she declines at this timeshe does not get in depth in discussion, but mostly it seems that she just does not see the need for formal hospice involvement. Otherwise as above. Resident Activity Tracking Resident Involvement: Resident Care Provided Care Provided: Adult Hospital Medicine
--- NOTE | 2023-03-25 04:12 | Billing Data ---
Date of Service March 25, 2023 Coding Level of Care Code 96072 INT INP/OBS CARE
== END 2023-03-24 17:47 | disposition home or self-care (01) | DRG 69 ==
LOC: ED 17:19 → SUATTDRO 21:42 → 4W 21:42 → INTOOBSV 21:42 → 4W 22:14